=== PATIENT | male | born 1950 | race Caucasian/White ===

== ENCOUNTER 2018-04-22 12:08 | Inpatient (IN) | payer OTHER, MEDICARE ==
[2018-04-22] MEDS ORDERED: NORMAL SALINE 200 ML IV ONE (14:49)
--- NOTE | 2018-04-22 14:54 | ER Document Report ---
ED Medical Screen (RME) - General Chief Complaint: Nausea/Vomiting Stated Complaint: VOMITING Time Seen by Provider: 04/22/18 14:44 Notes: 67-year-old male patient on home peritoneal dialysis, just moved to this area. He has had nausea vomiting diarrhea for the past 5 days. He normally makes very little urine. He was at [facility] dialysis today to become established as a new patient. While he was there he felt weak and they gave him a glucose tablet, then checked his sugar afterwards. He is sent to the emergency room for low blood pressure. He has a saline lock in. I have greeted and performed a rapid initial assessment of this patient. A comprehensive ED assessment and evaluation of the patient, analysis of test results and completion of the medical decision making process will be conducted by additional ED providers. TRAVEL OUTSIDE OF THE [place] IN LAST 30 DAYS: No - Related Data Allergies/Adverse Reactions: No Known Allergies Allergy (Verified 04/22/18 12:11) Past Medical History - Social History Chew tobacco use (# tins/day): No Frequency of alcohol use: None Drug Abuse: None Renal/ Medical History: Reports: Hx Peritoneal Dialysis Physical Exam - Vital signs Vitals: Resp 18 04/22/18 14:45 Course - Vital Signs Vital signs: Temp Pulse Resp BP Pulse Ox 18 04/22/18 14:45
[2018-04-22] MEDS ORDERED: ONDANSETRON HCL INJ/PF 4 MG/2 ML SDV IV ONE (15:03)
[2018-04-22 15:10] LABS: ABSOLUTE BASOPHILS # (AUTO) 0.2 10^3/uL (0.0-0.2); ABSOLUTE EOSINOPHILS # (AUTO) 0.3 10^3/uL (0.0-0.6); ABSOLUTE LYMPHOCYTES (AUTO) 1.1 10^3/uL (0.5-4.7); ABSOLUTE MONOCYTES (AUTO) 1.1 10^3/uL (0.1-1.4); ABSOLUTE NEUT (AUTO) 11.7 10^3/uL (1.7-8.2); BASOPHILS % (AUTO) 1.1 % (0-2); EOSINOPHILS % (AUTO) 1.9 % (0-6); HEMATOCRIT 35.4 % (37.9-51.0); HEMOGLOBIN 11.8 g/dL (13.5-17.0); MEAN CORPUSCULAR HEMOGLOBIN 31.6 pg (27.0-33.4); MEAN CORPUSCULAR HGB CONC 33.4 g/dL (32.0-36.0); MEAN CORPUSCULAR VOLUME 95 fl (80-97); MONOCYTES % (AUTO) 7.5 % (3-13); PLATELET COUNT 396 10^3/uL (150-450); RED BLOOD COUNT 3.73 10^6/uL (4.35-5.55); RED CELL DISTRIBUTION WIDTH 16.8 % (11.5-14.0); SEGMENTED NEUTROPHILS % (AUTO) 81.5 % (42-78); TOTAL CELLS COUNTED % (AUTO) 100 %; WHITE BLOOD COUNT 14.3 10^3/uL (4.0-10.5)
[2018-04-22 15:34] LABS: ALANINE AMINOTRANSFERASE 37 U/L (21-72); ALBUMIN 4.3 g/dL (3.5-5.0); ALKALINE PHOSPHATASE 119 U/L (38-126); ANION GAP 19 (5-19); ASPARTATE AMINO TRANSFERASE 18 U/L (17-59); BILIRUBIN,DIRECT 0.4 mg/dL (0.0-0.4); BILIRUBIN,TOTAL 0.4 mg/dL (0.2-1.3); BLOOD UREA NITROGEN 50 mg/dL (7-20); CALCIUM 7.9 mg/dL (8.4-10.2); CARBON DIOXIDE 28 mmol/L (22-30); CHLORIDE 94 mmol/L (98-107); CREATINE KINASE 101 U/L (55-170); GLUCOSE 101 mg/dL (75-110); POTASSIUM 3.7 mmol/L (3.6-5.0); SODIUM 140.9 mmol/L (137-145); TOTAL PROTEIN 8.1 g/dL (6.3-8.2)
[2018-04-22 15:45] LABS: CREATINE KINASE MB 4.2 ng/mL (<4.55); TROPONIN I 0.076 ng/mL
[2018-04-22] MEDS ORDERED: NORMAL SALINE 500 ML IV ONE (18:02)
--- NOTE | 2018-04-22 18:42 | RADIOLOGY REPORT (SQ) ---
EXAM DESCRIPTION: ABDOMEN 2 VIEWS COMPLETED DATE/TIME: 04/22/2018 6:28 pm REASON FOR STUDY: abdominal pain COMPARISON: None. NUMBER OF VIEWS: Two views. TECHNIQUE: Supine and erect/decubitus radiographic images of the abdomen acquired. LIMITATIONS: None. FINDINGS: FREE AIR: None. No abnormal gas collections. LUNG BASES: Clear. BOWEL GAS PATTERN: Nonobstructive pattern. No dilated loops or air fluid levels. CALCIFICATIONS: No suspicious calcifications. SOFT TISSUES: No gross mass or suggestion of organomegaly. HARDWARE: Dialysis tubing. BONES: No acute fracture. Chronic changes in the spine, pelvis, and hips. No worrisome bone lesions . OTHER: No other significant finding. IMPRESSION: NO RADIOGRAPHIC EVIDENCE FOR ACUTE ABDOMINAL DISEASE. TECHNICAL DOCUMENTATION: JOB ID: [id number] [email or web address]- All Rights Reserved Reading location - IP/workstation name: [email or web address]
[2018-04-22] MEDS ORDERED: NORMAL SALINE 1000 ML 1,000 ML IV ONE (21:54)
[2018-04-22] MEDS ORDERED: VANCOMYCIN HCL INJ 500 MG VIAL PO ONE (21:57)
[2018-04-22] MEDS ORDERED: METRONIDAZOLE 500 MG TABLET PO ONE (22:20)
[2018-04-22] MEDS ORDERED: NORMAL SALINE 1000 ML 1,000 ML IV PRN (23:00)
[2018-04-22] MEDS ORDERED: MAGNESIUM HYDROXIDE SUSP 30 ML UDCUP PO PRN (23:00)
[2018-04-22] MEDS ORDERED: ONDANSETRON 4 MG TAB.RAPDIS PO PRN (23:00)
[2018-04-22] MEDS ORDERED: MAG HYDROX/AL HYDROX/SIMETH SUSP 30 ML UDCUP PO PRN (23:00)
[2018-04-22] MEDS ORDERED: ACETAMINOPHEN 325 MG TABLET PO PRN (23:11)
[2018-04-22] MEDS ORDERED: HYDRALAZINE HCL INJ/PF 20 MG/1 ML SDV IV PRN (23:11)
[2018-04-22] MEDS ORDERED: ALBUTEROL SULFATE 0.083% NEB 2.5 MG/3 ML AMPUL NEB PRN (23:11)
[2018-04-22] MEDS ORDERED: INSULIN REG, HUMAN 100 UNIT/ML 3 ML VIAL (PYX) SUBCUT PRN (23:11)
[2018-04-22] MEDS ORDERED: NALBUPHINE HCL INJ 10 MG/1 ML AMPULE IV PRN (23:11)
[2018-04-22] MEDS ORDERED: LABETALOL HCL INJ 20 MG/4 ML DISP.SYRIN IV PRN (23:11)
[2018-04-22] MEDS ORDERED: GLUCAGON,HUMAN RECOMB 1 MG INJ IM PRN (23:12)
[2018-04-22] MEDS ORDERED: DEXTROSE 40% GEL 15 GM TUBE PO PRN ×2 (23:12)
[2018-04-22] MEDS ORDERED: DEXTROSE 50%-WATER 25 GM/50 ML DISP.SYRIN IV PRN ×2 (23:12)
--- NOTE | 2018-04-22 23:49 | ER Document Report ---
ED General - General Chief Complaint: Nausea/Vomiting Stated Complaint: VOMITING Time Seen by Provider: 04/22/18 14:44 Mode of Arrival: Ambulatory Information source: Patient, Relative TRAVEL OUTSIDE OF THE [place] IN LAST 30 DAYS: No - HPI Patient complains to provider of: Diarrhea Onset: Other - 67-year-old male that presents for evaluation of fatigue persistent diarrhea and abdominal pain over the last week. He is previously be en on peritoneal dialysis for the last 3 years [place] and is attempting to obtain dialysis locally as he is moving to be with his sons. Upon his arrival he went to [facility] to be established as a new patient for his peritoneal dialysis while he was there became lightheaded diaphoretic and felt unwell at which time he was noted to have somewhat diminished blood pressure and low blood sugar was sent to the emergency room. Currently he denies any fevers or chills, does endorse some nausea but says right now he feels much better while sitting still. Nothing is made his symptoms any better or worse. He has been treated previously for peritonitis in the past as recently as 3 weeks prior. - Related Data Allergies/Adverse Reactions: No Known Allergies Allergy (Verified 04/22/18 12:11) Past Medical History - General Information source: Patient, Relative - Social History Smoking Status: Never Smoker Chew tobacco use (# tins/day): No Frequency of alcohol use: None Drug Abuse: None Family History: None Patient has suicidal ideation: No Patient has homicidal ideation: No Renal/ Medical History: Reports: Hx Peritoneal Dialysis Review of Systems - Review of Systems -: Yes All other systems reviewed and negative Physical Exam - Vital signs Vitals: Pulse Resp BP Pulse Ox 91 18 98/43 L 100 04/22/18 14:41 04/22/18 14:41 04/22/18 14:41 04/22/18 14:41 - General General appearance: Appears well In distress: Mild - HEENT Head: Normocephalic Eyes: Normal Conjunctiva: Normal Cornea: Normal Extraocular movements intact: Yes Eyelashes: Normal Pupils: PERRL - Respiratory Respiratory status: No respiratory distress Chest status: Nontender Breath sounds: Normal Chest palpation: Normal - Cardiovascular Rhythm: Regular Heart sounds: Normal auscultation Murmur: No - Abdominal Inspection: Obese Distension: Distended Tenderness: Nontender, Other - PD catheter inserted in the left lower quadrant - Back Back: Normal, Nontender - Extremities General upper extremity: Normal inspection, Nontender, Normal color, Normal ROM, Normal temperature General lower extremity: Normal inspection, Nontender, Normal color, Normal ROM, Normal temperature, Normal weight bearing. No: Aris's sign - Neurological Neuro grossly intact: Yes Cognition: Normal Orientation: AAOx4 [place] Coma Scale Eye Opening: Spontaneous [place] Coma Scale Verbal: Oriented Long Coma Scale Motor: Obeys Commands [place] Coma Scale Total: 15 Speech: Normal Motor strength normal: LUE, RUE, LLE, RLE Sensory: Normal - Psychological Associated symptoms: Normal affect, Normal mood Course - Re-evaluation Re-evalutation: 67-year-old man on peritoneal dialysis who presents for evaluation of diarrhea abdominal pain low blood pressure and cramping. He complains of having set up peritoneal dialysis. Not been able to obtain it thus far. Current plan is for this patient undergo workup including stool samples, x-ray of the abdomen, blood work. He initially has an elevated lactate greater than 2. We will administer fluids will plan for monitoring reassessment will send troponin as well. Patient's potassium is in the normal range despite him being on peritoneal dialysis at this time. We will plan for this patient undergo workup as previous. Following several hours the emergency department the patient had an episode in which he very cold, became very diaphoretic had again dropped his blood pressure. Reassessed the patient at this time, repeated lactate which showed a slight increase administered another 500 mL normal saline. Notably this patient was able to produce a stool sample at which time it was diagnosed as having Clostridium difficile. We will plan for treatment of his C. difficile colitis. We will plan for this patient to undergo admission to the hospital at this time as he feels unwell is difficulty tolerating p.o. and is dehydrated clinically. Have contacted the on-call rib matcher and fitter Dr. Sams who agrees to help coordinate this patient's peritoneal dialysis. On-call hospitalist Dr. Greg Berg has agreed to admit this patient at this time. - Vital Signs Vital signs: Temp Pulse Resp BP Pulse Ox 97.9 F 91 16 131/61 H 94 04/22/18 23:23 04/22/18 14:41 04/22/18 23:01 04/22/18 23:01 04/22/18 23:01 - Laboratory Result Diagrams: 04/22/18 15:00 04/22/18 22:50 Laboratory results interpreted by me: 04/22/18 04/22/18 04/22/18 15:00 15:00 15:13 WBC 14.3 H RBC 3.73 L Hgb 11.8 L Hct 35.4 L RDW 16.8 H Seg Neutrophils % 81.5 H Lymphocytes % 8.0 L Absolute Neutrophils 11.7 H Chloride 94 L BUN 50 H Creatinine 8.31 H Est GFR ( Amer) 8 L Est GFR (Non-Af Amer) 6 L Glucose POC Glucose Lactic Acid 2.2 H Calcium 7.9 L Magnesium 1.5 L 04/22/18 04/22/18 04/22/18 19:25 22:10 22:50 WBC RBC Hgb Hct RDW Seg Neutrophils % Lymphocytes % Absolute Neutrophils Chloride BUN Creatinine Est GFR ( Amer) Est GFR (Non-Af Amer) Glucose 111 H POC Glucose 137 H Lactic Acid 2.8 H Calcium Magnesium Discharge - Discharge Clinical Impression: Clostridium difficile colitis Diarrhea Qualifiers: Diarrhea type: unspecified type Qualified Code(s): R19.7 - Diarrhea, unspecified Condition: Stable Disposition: ADMITTED INPATIENT Admitting Provider: [facility] Unit Admitted: Medical Floor
[2018-04-22] MEDS ORDERED: PANTOPRAZOLE SODIUM 40 MG VIAL IV ONE (23:59)
--- NOTE | 2018-04-23 01:50 | PDOC H&P ---
History of Present Illness Admission Date/PCP: 04/22/2018 No PCP Patient complains of: generalized weakness History of Present Illness: CELIO WAGNER is a 67 year old male who presented to the emergency room with a one-week history of severe diarrhea. He admits that for the last week he has b een having more than 12/day, watery, foul-smelling, grayish-brown diarrhea stools. He further admits the associated symptoms of decreased appetite and decreased oral intake of both liquids and solids due to constant nausea and occasional episodes of vomiting. He denies abdominal pain with the exception of occasional cramps with his diarrhea. He has not identified any ameliorating factors for his diarrhea but notices that the diarrhea is increased if he does eat or drink anything. He denies prior similar episodes. He further admits that he is a peritoneal dialysis patient and was at the [facility] dialysis center today set up his regular dialysis therapy. While he was at the dialysis center he had a sudden episode of feeling weak and lightheaded which he reports they attributed to his blood pressure being low and for that reason they sent him directly to the emergency room via ambulance. In the emergency room he was found to have a stool positive for Clostridium difficile and occasional episodes of what seemed to be vasovagal symptoms of near syncope. Because of these findings patient was admitted to hospital for further evaluation and treatment. Dr. Sams has agreed to see the patient for his dialysis needs. Past Medical History Cardiac Medical History: Reports: Congestive Heart Failure, Hypertension Denies: Atrial Fibrillation, DVT, Myocardial Infarction, Pulmonary Embolism Pulmonary Medical History: Reports: Chronic Obstructive Pulmonary Disease (COPD) Denies: Asthma EENT Medical History: Reports: None Neurological Medical History: Denies: Multiple Sclerosis, Seizures Endocrine Medical History: Reports: Diabetes Mellitus Type 2, Obesity Denies: Diabetes Mellitus Type 1, Hyperthyroidism, Hypothyroidism Renal/ Medical History: Reports: Chronic Kidney Disease, End Stage Renal Disease Denies: Nephrolithiasis Malignancy Medical History: Reports: None GI Medical History: Denies: Cirrhosis, Hepatitis Musculoskeltal Medical History: Denies: Arthritis, Gout Skin Medical History: Denies: Eczema, Psoriasis Psychiatric Medical History: Reports: Tobacco Dependency Denies: Alcohol Dependency, Substance Abuse Traumatic Medical History: Reports: None Hematology: Reports: Anemia Denies: Bleeding Tendencies Infectious Medical History: Reports: Other Infectious History Note: Patient admits he was treated for possible peritonitis with antibiotics 3 or 4 weeks ago at the [facility] in [facility]. Past Surgical History Past Surgical History: Reports: Other - Placement of peritoneal dialysis tubing and access. Social History Information Source: Patient Lives with: Family Smoking Status: Former Smoker Frequency of Alcohol Use: Rare Hx Recreational Drug Use: No Drugs: None Hx Prescription Drug Abuse: No - Advance Directive Resuscitation Status: Full Code Surrogate healthcare decision maker:: Spouse Family History Family History: CAD, DM, Hypertension Parental Family History Reviewed: Yes Children Family History Reviewed: No Sibling(s) Family History Reviewed.: Yes Medication/Allergy Allergies/Adverse Reactions: No Known Allergies Allergy (Verified 04/22/18 12:11) Review of Systems Constitutional: PRESENT: as per HPI, anorexia, weakness. ABSENT: chills, fever(s) Eyes: ABSENT: visual disturbances, other - Ocular pain Ears: ABSENT: hearing changes, other - Ear pain Nose, Mouth, and Throat: ABSENT: mouth pain, sore throat Cardiovascular: ABSENT: chest pain, dyspnea on exertion, edema, orthropnea, palpitations Respiratory: ABSENT: cough, dyspnea Gastrointestinal: PRESENT: as per HPI, diarrhea, nausea, vomiting. ABSENT: abdominal pain, constipation Genitourinary: PRESENT: other - Has peritoneal dialysis for chronic end-stage kidney failure. ABSENT: dysuria, hematuria Musculoskeletal: ABSENT: deformity, joint swelling Integumentary: ABSENT: pruritus, rash Neurological: ABSENT: confusion, convulsions, memory loss, tremor(s) Psychiatric: ABSENT: anxiety, depression Endocrine: ABSENT: cold intolerance, heat intolerance Hematologic/Lymphatic: ABSENT: easy bleeding, easy bruising Physical Exam Vital Signs: Temp Pulse Resp BP Pulse Ox 97 F L 91 18 98/43 L 100 04/22/18 15:36 04/22/18 14:41 04/22/18 14:45 04/22/18 15:00 04/22/18 14:41 Intake & Output 04/20/18 04/21/18 04/22/18 23:59 23:59 23:59 Intake Total 700 Balance 700 Weight 99.9 kg General appearance: PRESENT: no acute distress, cooperative Head exam: PRESENT: atraumatic, normocephalic Eye exam: PRESENT: conjunctiva pink, EOMI. ABSENT: scleral icterus Ear exam: PRESENT: normal external ear exam. ABSENT: bleeding, drainage Mouth exam: PRESENT: dry mucosa, neck supple Neck exam: ABSENT: thyromegaly, tracheal deviation Respiratory exam: PRESENT: decreased breath sounds - Slightly decreased breath sounds throughout all fraser consistent with mild to moderate COPD, symmetrical, unlabored Cardiovascular exam: PRESENT: RRR. ABSENT: clicks, gallop, rubs Pulses: PRESENT: normal radial pulses, normal dorsalis pedis pul Vascular exam: PRESENT: normal capillary refill. ABSENT: pallor GI/Abdominal exam: PRESENT: distended - Mild gaseous distention, hypoactive bowel sounds, soft. ABSENT: rebound, tenderness Rectal exam: PRESENT: deferred Extremities exam: ABSENT: joint swelling, pedal edema Musculoskeletal exam: ABSENT: deformity, dislocation Neurological exam: PRESENT: alert, oriented to person, oriented to place, oriented to time, oriented to situation, CN II-XII grossly intact. ABSENT: motor sensory deficit Psychiatric exam: PRESENT: appropriate affect, normal mood Skin exam: PRESENT: dry, intact, warm. ABSENT: jaundice, rash, urticaria Results Laboratory Results: 04/22/18 15:00 04/22/18 04/22/18 04/22/18 15:00 15:00 15:13 WBC 14.3 H RBC 3.73 L Hgb 11.8 L Hct 35.4 L MCV 95 MCH 31.6 MCHC 33.4 RDW 16.8 H Plt Count 396 Seg Neutrophils % 81.5 H Lymphocytes % 8.0 L Monocytes % 7.5 Eosinophils % 1.9 Basophils % 1.1 Absolute Neutrophils 11.7 H Absolute Lymphocytes 1.1 Absolute Monocytes 1.1 Absolute Eosinophils 0.3 Absolute Basophils 0.2 Sodium 140.9 Potassium 3.7 Chloride 94 L Carbon Dioxide 28 Anion Gap 19 BUN 50 H Creatinine 8.31 H Est GFR ( Amer) 8 L Est GFR (Non-Af Amer) 6 L Glucose 101 Lactic Acid 2.2 H Calcium 7.9 L Magnesium 1.5 L Total Bilirubin 0.4 AST 18 ALT 37 Alkaline Phosphatase 119 Total Protein 8.1 Albumin 4.3 04/22/18 19:25 WBC RBC Hgb Hct MCV MCH MCHC RDW Plt Count Seg Neutrophils % Lymphocytes % Monocytes % Eosinophils % Basophils % Absolute Neutrophils Absolute Lymphocytes Absolute Monocytes Absolute Eosinophils Absolute Basophils Sodium Potassium Chloride Carbon Dioxide Anion Gap BUN Creatinine Est GFR ( Amer) Est GFR (Non-Af Amer) Glucose Lactic Acid 2.8 H Calcium Magnesium Total Bilirubin AST ALT Alkaline Phosphatase Total Protein Albumin 04/22/18 04/22/18 15:00 15:00 Creatine Kinase 101 CK-MB (CK-2) 4.20 Troponin I 0.076 Impressions: Abdomen X-Ray 04/22/18 18:03 IMPRESSION: NO RADIOGRAPHIC EVIDENCE FOR ACUTE ABDOMINAL DISEASE. Assessment & Plan - Diagnosis (1) Clostridium difficile enterocolitis Is this a current diagnosis for this admission?: Yes Plan: Patient is started on oral vancomycin 125 mg every 6 hours. Additionally he will be given supportive care with IV fluids and symptomatic care with antiemetics and pain control utilizing Nubain 10 mg IV every 3 hours as needed for pain. (2) Chronic renal failure, stage 5 Is this a current diagnosis for this admission?: Yes Plan: Patient will be seen in consultation with Dr. Sams for management of his chronic renal failure and assistance in peritoneal dialysis. (3) Generalized weakness Is this a current diagnosis for this admission?: Yes Plan: The patient's weakness will be treated utilizing supportive cares in the form of IV fluids maintenance of appropriate electrolyte balance as well as symptomatic cares for any fever or pain present. (4) Vasovagal near syncope Is this a current diagnosis for this admission?: Yes Plan: The patient's near syncope be treated with repletion of his vascular volume and treatment of his gastrointestinal disorder. Further symptomatic and supportive cares will be rendered as appropriate. - Time Time Spent: 30 to 50 Minutes Critical Time spent with patient: Less than 15 minutes Anticipated discharge: Home - Inpatient Certification Based on my medical assessment, after consideration of the patient's comorbidities, presenting symptoms, or acuity I expect that the services needed warrant INPATIENT care.: Yes I certify that my determination is in accordance with my understanding of Medicare's requirements for reasonable and necessary INPATIENT services [42 CFR 412.3e].: Yes Medical Necessity: Significant Comorbidiites Make Outpatient Treatment Too Risky, Need Close Monitoring Due to Risk of Patient Decompensation, Need For IV Fluids, Need For Continuous Telemetry Monitoring, Risk of Complication if Not Cared For in Hospital
[2018-04-23] MEDS ORDERED: VANCOMYCIN HCL INJ 500 MG VIAL ONE (04:07)
[2018-04-23] MEDS: VANCOMYCIN HCL INJ 500 MG VIAL PO SCH ×4 (04:26→21:54)
[2018-04-23 05:23] LABS: ABSOLUTE BASOPHILS # (AUTO) 0.1 10^3/uL (0.0-0.2); ABSOLUTE EOSINOPHILS # (AUTO) 0.4 10^3/uL (0.0-0.6); ABSOLUTE LYMPHOCYTES (AUTO) 1.4 10^3/uL (0.5-4.7); ABSOLUTE MONOCYTES (AUTO) 1.2 10^3/uL (0.1-1.4); ABSOLUTE NEUT (AUTO) 8.2 10^3/uL (1.7-8.2); BASOPHILS % (AUTO) 1.3 % (0-2); EOSINOPHILS % (AUTO) 3.4 % (0-6); HEMATOCRIT 30.3 % (37.9-51.0); LYMPHOCYTES % (AUTO) 12.1 % (13-45); MEAN CORPUSCULAR HEMOGLOBIN 31.5 pg (27.0-33.4); MEAN CORPUSCULAR HGB CONC 33.1 g/dL (32.0-36.0); MEAN CORPUSCULAR VOLUME 95 fl (80-97); MONOCYTES % (AUTO) 10.7 % (3-13); PLATELET COUNT 320 10^3/uL (150-450); RED BLOOD COUNT 3.17 10^6/uL (4.35-5.55); RED CELL DISTRIBUTION WIDTH 17.1 % (11.5-14.0); SEGMENTED NEUTROPHILS % (AUTO) 72.5 % (42-78); TOTAL CELLS COUNTED % (AUTO) 100 %; WHITE BLOOD COUNT 11.3 10^3/uL (4.0-10.5)
[2018-04-23] MEDS: PANTOPRAZOLE SODIUM 40 MG VIAL IV SCH ×2 (05:36→18:12)
[2018-04-23] MEDS: HEPARIN SOD (PORCINE) 5,000 UNIT/ML 1 ML SYRINGE SUBCUT SCH ×3 (05:36→21:57)
[2018-04-23 05:44] LABS: ANION GAP 17 (5-19); BLOOD UREA NITROGEN 50 mg/dL (7-20); CARBON DIOXIDE 25 mmol/L (22-30); CHLORIDE 99 mmol/L (98-107); CREATINE KINASE 188 U/L (55-170); GLUCOSE 175 mg/dL (75-110); PHOSPHORUS 8.8 mg/dL (2.5-4.5); POTASSIUM 3.7 mmol/L (3.6-5.0); SODIUM 141.2 mmol/L (137-145); TRIGLYCERIDES 270 mg/dL (<150)
[2018-04-23 05:54] LABS: DIRECT LDL 94 mg/dL (<100)
[2018-04-23 05:56] LABS: CREATINE KINASE MB 4.89 ng/mL (<4.55); TROPONIN I 0.098 ng/mL
[2018-04-23 06:01] LABS: FREE T3 3.29 pg/mL (2.77-5.27); FREE T4 (FREE THYROXINE) 1.18 ng/dL (0.78-2.19)
[2018-04-23 06:03] LABS: CALCIUM 6.9 mg/dL (8.4-10.2)
[2018-04-23 06:15] LABS: THYROID STIMULATING HORMONE 3.04 uIU/mL (0.47-4.68)
[2018-04-23] MEDS ORDERED: MAGNESIUM SULFATE/D5W 1 GM/100 ML RTUPB IV ONE (06:30)
[2018-04-23] MEDS: ONDANSETRON HCL INJ/PF 4 MG/2 ML SDV IV PRN ×2 (07:53→21:59)
[2018-04-23] MEDS: GENTAMICIN SULFATE 0.1% CREAM 15 GM TP SCH (09:37)
[2018-04-23] MEDS ORDERED: DOCUSATE SODIUM 100 MG/10 ML UDC PO PRN (09:38)
[2018-04-23] MEDS ORDERED: DOCUSATE SODIUM 100 MG/10 ML UDC PO SCH (10:00)
[2018-04-23 11:52] LABS: CREATINE KINASE MB 4.78 ng/mL (<4.55); TROPONIN I 0.089 ng/mL
[2018-04-23] MEDS: INSULIN REG, HUMAN 100 UNIT/ML 3 ML VIAL (PYX) SUBCUT SCH ×3 (12:12→22:44)
[2018-04-23] MEDS: CALCIUM ACETATE 667 MG CAPSULE PO SCH ×2 (14:09→18:13)
[2018-04-23] MEDS: FOLIC ACID/VITAMIN B COMP W-C CAPSULE PO SCH (16:47)
--- NOTE | 2018-04-23 17:48 | PDOC CONSULTATION ---
Consultation Consult Date: 04/23/18 Attending physician:: IGNACIO GRAY Consult reason:: I was asked to see the patient because of end-stage renal disease admitted with dehydration, diarrhea and hypotension. History of Present Illness Admission Date/PCP: 04/23/18 00:02 History of Present Illness: CELIO WAGNER is a 67 year old male with history of end-stage renal disease on peritoneal dialysis, diabetes mellitus type 2, hypertension, hyperlipidemia, COPD, CHF and coronary artery disease who presented to the emergency room yesterday. Patient relates that he just moved here in [place] from [place] last March 17, 2019. Yesterday he was at [place] [facility] [facility] trying to establish his care in the dialysis unit when he felt weak and lightheaded and was found to have low blood pressure. He was then sent to the emergency room at the time. Patient admits that he has not been feeling good because he has been having diarrhea for the last 4-5 days. Yesterday he had at least 12 episodes of loose stools. He describes his stool without any blood nor mucus. He admits some nausea and vomiting yesterday with some abdominal soreness for the last 4-5 days. He has some dry cough but denies any shortness of breath, chest pains, no leg swelling. Initial evaluation in the emergency room showed that he was C. difficile positive and is currently being treated with oral vancomycin. He was also noted to be dehydrated so he was given initially a liter of normal saline bolus followed by another bag at 125 mL an hour. Today he said he feels a little bit better. Patient has been on peritoneal dialysis for the past 3 years. His glass cutting machine feeder was Dr. Carrero from [place]. Even though he moved here in [place] on March 17 he was only trying to establish with [facility] and with us yesterday. He said he was using the supplies that he brought in from [place]. He said because of his end-stage renal disease is a combination of diabetes and hypertension. He usually does his peritoneal dialysis. The cycler machine at night with a fill volume of 3 L each exchange for a total of 3 exchanges during the night with last fill using Extraneal solution during the day. So far he de nies any problems with his exchanges at home nor did he notice any cloudy peritoneal dialysis fluid effluent. He does not know what his dry weight is because his usually does his peritoneal dialysis who is currently not available in the room. On March 30, [address] back to [place] he started not feeling good and so he stopped at [facility]. He was admitted there from March 30 and discharged on April 12, 2018. Discharge diagnosis include acute hypoxemic respiratory failure, hypervolemia, end-stage renal disease and diabetic foot ulcers to name a few. He told me that he was diagnosed with peritonitis and was treated with IV antibiotics for 3-4 days during that hospitalization but the discharge summary did not really say that. So I am not sure about this diagnosis. We did do a fluid cell count and a fluid culture yesterday when he was at [place] [facility]. The PD fluid cell count was so far negative for any evidence of peritonitis and the PD fluid culture is still pending at the time of the state dictation. During that hospitalization there was concern about osteomyelitis which was ruled out by doing an MRI. There was also a note of elevated troponin and medical management was done. Patient was discharged and patient went back here in [place] instead of proceeding to [place] as he planned. Past Medical History Cardiac Medical History: Reports: CHF-Diastolic, Coronary Artery Disease, Hyperlipidemia, Hypertension-primary, Myocardial Infarction - Twice with stents placed, Pulmonary Hypertension Pulmonary Medical History: Reports: Chronic Obstructive Pulmonary Disease (COPD), Respiratory Failure Endocrine Medical History: Reports: Diabetes Mellitus Type 2, Obesity Complications of Diabetes: Reports: Autonomic Neuropathy, Diabetic Foot Ulcer, Nephropathy, Retinopathy Renal/ Medical History: Reports: Benign Prostatic Hyperplasia, End Stage Renal Disease, Hematuria, Hypocalcemia, Hyperphosphatemia, Renal Osteodystropy, Other - Urinary retention GI Medical History: Reports: Diverticulitis Psychiatric Medical History: Reports: Depression, Tobacco Dependency Hematology Medical History: Reports Anemia of Chronic Kidney Disease Past Surgical History Past Surgical History: Reports: Dialysis Access Surgery PD, Other - Small bowel resection for diverticulitis; adhesion lysis April 2017 Social History Information Source: Patient, [facility] Records Lives with: Spouse/Significant other Smoking Status: Former Smoker - Creatinine 1993 Frequency of Alcohol Use: None Hx Recreational Drug Use: No Drugs: None Hx Prescription Drug Abuse: No - Advance Directive Resuscitation Status: Full Code Family History Family History: CAD - Father, CVA - Mother Parental Family History Reviewed: Yes Children Family History Reviewed: Yes Sibling(s) Family History Reviewed.: Yes Medication/Allergy Home Medications: Aspirin [Ecotrin 81 mg EC Tablet] 81 mg PO DAILY 04/23/18 Atorvastatin Calcium [Lipitor 80 mg Tablet] 80 mg PO QHS 04/23/18 Carvedilol [Coreg 12.5 mg Tablet] 12.5 mg PO Q12 04/23/18 Docusate Sodium [Colace 100 mg Capsule] 200 mg PO BID 04/23/18 Escitalopram Oxalate [Lexapro 10 mg Tablet] 10 mg PO DAILY 04/23/18 Finasteride [Proscar 5 mg Tablet] 5 mg PO DAILY 04/23/18 Folic Acid/Vitamin B Comp W-C [Renal Multivitamin Tablet] 1 tab PO DAILY 04/23/18 Insulin Aspart [Novolog Insulin 100 Unit/1 ml 10 ml] 0 unit SUBCUT .SLD SCALE 04/23/18 Insulin Glargine,Hum.rec.anlog [Lantus Insulin 100 Unit/1 ml 10 ml] 80 unit SUBCUT QHS 04/23/18 Ipratropium/Albuterol Sulfate [Combivent Respimat 4 gm Mdi] 1 puff IH DAILY 04/23/18 Isosorbide Mononitrate [Imdur 30 mg Tablet.er] 30 mg PO DAILY 04/23/18 Lactulose [Cephulac 20 gm/30 ml Syrup UD Cup] 20 gm PO DAILYP PRN 04/23/18 Omeprazole 40 mg PO DAILY 04/23/18 Terazosin HCl [Hytrin] 2 mg PO QHS 04/23/18 Allergies/Adverse Reactions: No Known Allergies Allergy (Verified 04/22/18 12:11) Review of Systems All systems: reviewed and no additional remarkable complaints except as stated Review of Systems: Constitutional: ABSENT: chills, fatigue, fever(s), headache(s), weight gain, weight loss admits weakness Eyes: ABSENT: visual disturbances Ears: ABSENT: hearing changes Cardiovascular: ABSENT: chest pain, dyspnea on exertion, edema, orthropnea, palpitations Respiratory: ABSENT: cough, dyspnea, hemoptysis Gastrointestinal: ABSENT: Constipation, hematemesis, hematochezia; admits diarrhea, nausea, vomiting and abdominal soreness Genitourinary: ABSENT: dysuria, hematuria; admits decreased urine output Musculoskeletal: ABSENT: joint swelling Integumentary: ABSENT: rash, wounds Neurological: ABSENT: abnormal gait, abnormal speech, confusion, dizziness, focal weakness, numbness, syncope Psychiatric: ABSENT: anxiety, depression Endocrine: ABSENT: cold intolerance, heat intolerance, polydipsia, polyuria Hematologic/Lymphatic: ABSENT: easy bleeding, easy bruising, lymphadenopathy Physical Exam Vital Signs: Temp Pulse Resp BP Pulse Ox 98.5 F 96 18 119/34 L 92 04/23/18 16:35 04/23/18 16:35 04/23/18 16:35 04/23/18 16:35 04/23/18 16:35 Intake & Output 04/22/18 04/23/18 04/24/18 06:59 06:59 06:59 Intake Total 4500 5050 Output Total 2800 4900 Balance 1700 150 Weight 97.8 kg 98.8 kg Exam: General appearance: No acute distress, cooperative, well-developed, well- nourished Head exam: PRESENT: atraumatic, normocephalic Eye exam: PRESENT: Conjunctiva slightly pale, EOMI, PERRLA. ABSENT: conjunctival injection, scleral icterus Mouth exam: PRESENT: moist, neck supple, tongue midline Neck exam: PRESENT: full ROM. ABSENT: carotid bruit, JVD, lymphadenopathy, thyromegaly Respiratory exam: PRESENT: clear to auscultation bilaterally. ABSENT: rales, rhonchi, stridor, wheezes Cardiovascular exam: PRESENT: RRR, +S1, +S2. ABSENT: systolic murmur Pulses: PRESENT: normal radial pulses, normal dorsalis pedis pulses GI/Abdominal exam: PRESENT: normal bowel sounds, soft. PD catheter in place with good exit site ABSENT: guarding, mass, tenderness Rectal exam: Deferred Extremities exam: PRESENT: full ROM. ABSENT: calf tenderness, pedal edema Musculoskeletal: PRESENT: full ROM. ABSENT: deformity Neurological exam: PRESENT: alert, Awake, Oriented to person, Oriented to place, Oriented to time, reflexes normal, CN II-XII grossly intact. ABSENT: motor sensory deficit Psychiatric exam: PRESENT: appropriate affect, normal mood. ABSENT: homicidal ideation, suicidal ideation Skin exam: PRESENT: intact, dry, warm. ABSENT: rash Results Laboratory Results: 04/23/18 05:02 04/23/18 05:02 04/22/18 04/22/18 04/23/18 19:25 22:50 00:48 WBC RBC Hgb Hct MCV MCH MCHC RDW Plt Count Seg Neutrophils % Lymphocytes % Monocytes % Eosinophils % Basophils % Absolute Neutrophils Absolute Lymphocytes Absolute Monocytes Absolute Eosinophils Absolute Basophils Sodium Potassium Chloride Carbon Dioxide Anion Gap BUN Creatinine Est GFR ( Amer) Est GFR (Non-Af Amer) Glucose 111 H Lactic Acid 2.8 H 2.2 H Calcium Phosphorus Magnesium Triglycerides Cholesterol LDL Cholesterol Direct VLDL Cholesterol HDL Cholesterol TSH Free T4 Free T3 pg/mL 04/23/18 04/23/18 04/23/18 05:02 05:02 05:02 WBC 11.3 H RBC 3.17 L Hgb 10.0 L Hct 30.3 L MCV 95 MCH 31.5 MCHC 33.1 RDW 17.1 H Plt Count 320 Seg Neutrophils % 72.5 Lymphocytes % 12.1 L Monocytes % 10.7 Eosinophils % 3.4 Basophils % 1.3 Absolute Neutrophils 8.2 Absolute Lymphocytes 1.4 Absolute Monocytes 1.2 Absolute Eosinophils 0.4 Absolute Basophils 0.1 Sodium 141.2 Potassium 3.7 Chloride 99 Carbon Dioxide 25 Anion Gap 17 BUN 50 H Creatinine 8.33 H Est GFR ( Amer) 8 L Est GFR (Non-Af Amer) 6 L Glucose 175 H Lactic Acid 2.0 Calcium 6.9 L* Phosphorus 8.8 H Magnesium 1.5 L Triglycerides 270 H Cholesterol 177.80 LDL Cholesterol Direct 94 VLDL Cholesterol 54.0 H HDL Cholesterol 29 L TSH Free T4 Free T3 pg/mL 04/23/18 05:02 WBC RBC Hgb Hct MCV MCH MCHC RDW Plt Count Seg Neutrophils % Lymphocytes % Monocytes % Eosinophils % Basophils % Absolute Neutrophils Absolute Lymphocytes Absolute Monocytes Absolute Eosinophils Absolute Basophils Sodium Potassium Chloride Carbon Dioxide Anion Gap BUN Creatinine Est GFR ( Amer) Est GFR (Non-Af Amer) Glucose Lactic Acid Calcium Phosphorus Magnesium Triglycerides Cholesterol LDL Cholesterol Direct VLDL Cholesterol HDL Cholesterol TSH 3.04 Free T4 1.18 Free T3 pg/mL 3.29 04/22/18 04/22/18 04/22/18 15:00 15:00 22:50 Creatine Kinase 101 CK-MB (CK-2) 4.20 Troponin I 0.076 0.083 04/22/18 04/22/18 04/23/18 22:50 22:50 05:02 Creatine Kinase 120 188 H CK-MB (CK-2) 4.46 Troponin I Cancelled 01/29/19 01/29/19 01/29/19 05:02 10:51 10:51 Creatine Kinase 187 H CK-MB (CK-2) 4.89 H 4.78 H Troponin I 0.098 0.089 Impressions: Abdomen X-Ray 04/22/18 18:03 IMPRESSION: NO RADIOGRAPHIC EVIDENCE FOR ACUTE ABDOMINAL DISEASE. Assessment & Plan - Diagnosis (1) End stage renal disease on dialysis Is this a current diagnosis for this admission?: Yes Plan: Patient has been on peritoneal dialysis for 3 years. We will continue per itoneal dialysis while here in the hospital. Since we do not do a cycler machine here in the hospital we will convert the patient to continuous ambulatory peritoneal dialysis. We also do not have an Extraneal dialysis solution so I will increase his number of exchanges to make up for it. We will do 5 exchanges, fill volume of 2.5 L each exchange, we will use 2.5% dianeal solution unless the blood pressure has systolic blood pressure of 110 or less then we will use 1.5% solution. We will do exchanges every 5 hours. We will do daily exit site care and daily weights. Discussed the CAPD prescription with his nurse today. We will monitor the patient every day and adjust treatment accordingly if needed. At this time initial workup for peritonitis is negative so no antibiotics is necessary. (2) Clostridium difficile colitis Is this a current diagnosis for this admission?: Yes Plan: On oral vancomycin. (3) Dehydration Is this a current diagnosis for this admission?: Yes Plan: He was given 1 L of IV saline bolus in the emergency room yesterday and just finish a liter of IV fluids which I think for now is appropriate. Encourage oral fluid intake. I do not recommend any further IV fluids since the patient does not make much urine anymore. (4) Hyperphosphatemia Is this a current diagnosis for this admission?: Yes Plan: Uncontrolled. Start the patient on calcium acetate 667 mg 3 capsules with meals. (5) Hypocalcemia Is this a current diagnosis for this admission?: Yes Plan: This is due to hyperphosphatemia. Phosphorus binders will be initiated. (6) Hypomagnesemia Is this a current diagnosis for this admission?: Yes Plan: Replace as necessary. (7) Diabetes mellitus type 2 in obese Is this a current diagnosis for this admission?: Yes (8) Hyperlipidemia Is this a current diagnosis for this admission?: Yes (9) Generalized weakness Is this a current diagnosis for this admission?: Yes - Notes Notes: Thank you very much for this consultation. I will follow the patient with you. - Time Time Spent: Greater than 70 Minutes
--- NOTE | 2018-04-23 18:23 | PDOC PROGRESS REPORT ---
Subjective Progress Note for:: 04/23/18 Subjective:: No acute events overnight. Patient has not had any recurrence of his diarrhea. C. difficile was positive. Patient has responded well to oral vancomycin and metronidazole. Not having any shortness of breath, chest pain, abdominal pain, fever, chills, diarrhea or any urinary symptoms. She has PD dialysis and Dr. Sams nephrology has is on board. Reason For Visit: ACUTE CLOSTRIDIUM DIFFICILE ENTERCOLITIS Physical Exam Vital Signs: Temp Pulse Resp BP Pulse Ox 98.5 F 96 18 119/34 L 92 04/23/18 16:35 04/23/18 16:35 04/23/18 16:35 04/23/18 16:35 04/23/18 16:35 Intake & Output 04/22/18 04/23/18 04/24/18 06:59 06:59 06:59 Intake Total 4500 5050 Output Total 2800 4900 Balance 1700 150 Weight 97.8 kg 98.8 kg General appearance: PRESENT: obese Head exam: PRESENT: atraumatic, normocephalic Respiratory exam: PRESENT: clear to auscultation yair. ABSENT: rales, rhonchi, wheezes Cardiovascular exam: PRESENT: RRR. ABSENT: diastolic murmur, rubs, systolic murmur GI/Abdominal exam: PRESENT: normal bowel sounds, soft. ABSENT: distended, guarding, mass, organolmegaly, rebound, tenderness Neurological exam: PRESENT: alert, awake, oriented to person, oriented to place, oriented to time, oriented to situation, CN II-XII grossly intact. ABSENT: motor sensory deficit Results Laboratory Results: 04/23/18 05:02 04/23/18 05:02 04/22/18 04/22/18 04/23/18 19:25 22:50 00:48 WBC RBC Hgb Hct MCV MCH MCHC RDW Plt Count Seg Neutrophils % Lymphocytes % Monocytes % Eosinophils % Basophils % Absolute Neutrophils Absolute Lymphocytes Absolute Monocytes Absolute Eosinophils Absolute Basophils Sodium Potassium Chloride Carbon Dioxide Anion Gap BUN Creatinine Est GFR ( Amer) Est GFR (Non-Af Amer) Glucose 111 H Lactic Acid 2.8 H 2.2 H Calcium Phosphorus Magnesium Triglycerides Cholesterol LDL Cholesterol Direct VLDL Cholesterol HDL Cholesterol TSH Free T4 Free T3 pg/mL 04/23/18 04/23/18 04/23/18 05:02 05:02 05:02 WBC 11.3 H RBC 3.17 L Hgb 10.0 L Hct 30.3 L MCV 95 MCH 31.5 MCHC 33.1 RDW 17.1 H Plt Count 320 Seg Neutrophils % 72.5 Lymphocytes % 12.1 L Monocytes % 10.7 Eosinophils % 3.4 Basophils % 1.3 Absolute Neutrophils 8.2 Absolute Lymphocytes 1.4 Absolute Monocytes 1.2 Absolute Eosinophils 0.4 Absolute Basophils 0.1 Sodium 141.2 Potassium 3.7 Chloride 99 Carbon Dioxide 25 Anion Gap 17 BUN 50 H Creatinine 8.33 H Est GFR ( Amer) 8 L Est GFR (Non-Af Amer) 6 L Glucose 175 H Lactic Acid 2.0 Calcium 6.9 L* Phosphorus 8.8 H Magnesium 1.5 L Triglycerides 270 H Cholesterol 177.80 LDL Cholesterol Direct 94 VLDL Cholesterol 54.0 H HDL Cholesterol 29 L TSH Free T4 Free T3 pg/mL 04/23/18 05:02 WBC RBC Hgb Hct MCV MCH MCHC RDW Plt Count Seg Neutrophils % Lymphocytes % Monocytes % Eosinophils % Basophils % Absolute Neutrophils Absolute Lymphocytes Absolute Monocytes Absolute Eosinophils Absolute Basophils Sodium Potassium Chloride Carbon Dioxide Anion Gap BUN Creatinine Est GFR ( Amer) Est GFR (Non-Af Amer) Glucose Lactic Acid Calcium Phosphorus Magnesium Triglycerides Cholesterol LDL Cholesterol Direct VLDL Cholesterol HDL Cholesterol TSH 3.04 Free T4 1.18 Free T3 pg/mL 3.29 04/22/18 04/22/18 04/22/18 15:00 15:00 22:50 Creatine Kinase 101 CK-MB (CK-2) 4.20 Troponin I 0.076 0.083 04/22/18 04/22/18 04/23/18 22:50 22:50 05:02 Creatine Kinase 120 188 H CK-MB (CK-2) 4.46 Troponin I Cancelled 04/23/18 04/23/18 04/23/18 05:02 10:51 10:51 Creatine Kinase 187 H CK-MB (CK-2) 4.89 H 4.78 H Troponin I 0.098 0.089 Impressions: Abdomen X-Ray 04/22/18 18:03 IMPRESSION: NO RADIOGRAPHIC EVIDENCE FOR ACUTE ABDOMINAL DISEASE. Assessment & Plan - Diagnosis (1) Clostridium difficile enterocolitis Is this a current diagnosis for this admission?: Yes Plan: Continue vancomycin and metronidazole. Continue supportive measures. Monitor volume status. Monitor electrolytes and replace as needed. (2) Chronic renal failure, stage 5 Is this a current diagnosis for this admission?: Yes Plan: On peritoneal dialysis. Dr. Sams yarn salvager on board. Monitor volume status and electrolytes. Restart home meds. (3) Generalized weakness Is this a current diagnosis for this admission?: Yes Plan: Due to underlying C. difficile colitis and electrolyte and volume depletion. Continue supportive measures. Monitor vitals and electrolytes replace as needed. (4) Vasovagal near syncope Is this a current diagnosis for this admission?: Yes Plan: Likely due to dehydration caused by C. difficile colitis. Monitor volume status.
[2018-04-24] MEDS: VANCOMYCIN HCL INJ 500 MG VIAL PO SCH ×4 (02:24→21:24)
[2018-04-24 05:05] LABS: ABSOLUTE BASOPHILS # (AUTO) 0.1 10^3/uL (0.0-0.2); ABSOLUTE EOSINOPHILS # (AUTO) 0.4 10^3/uL (0.0-0.6); ABSOLUTE LYMPHOCYTES (AUTO) 1.3 10^3/uL (0.5-4.7); ABSOLUTE MONOCYTES (AUTO) 0.9 10^3/uL (0.1-1.4); ABSOLUTE NEUT (AUTO) 5.8 10^3/uL (1.7-8.2); BASOPHILS % (AUTO) 1.3 % (0-2); HEMATOCRIT 28.1 % (37.9-51.0); HEMOGLOBIN 9.4 g/dL (13.5-17.0); LYMPHOCYTES % (AUTO) 15.1 % (13-45); MEAN CORPUSCULAR HEMOGLOBIN 31.7 pg (27.0-33.4); MEAN CORPUSCULAR HGB CONC 33.3 g/dL (32.0-36.0); MEAN CORPUSCULAR VOLUME 95 fl (80-97); PLATELET COUNT 276 10^3/uL (150-450); RED BLOOD COUNT 2.96 10^6/uL (4.35-5.55); RED CELL DISTRIBUTION WIDTH 16.8 % (11.5-14.0); SEGMENTED NEUTROPHILS % (AUTO) 67.6 % (42-78); TOTAL CELLS COUNTED % (AUTO) 100 %; WHITE BLOOD COUNT 8.6 10^3/uL (4.0-10.5)
[2018-04-24 05:33] LABS: ALANINE AMINOTRANSFERASE 25 U/L (21-72); ALBUMIN 3.3 g/dL (3.5-5.0); ALKALINE PHOSPHATASE 94 U/L (38-126); ANION GAP 16 (5-19); ASPARTATE AMINO TRANSFERASE 16 U/L (17-59); BILIRUBIN,DIRECT 0.4 mg/dL (0.0-0.4); BILIRUBIN,TOTAL 0.4 mg/dL (0.2-1.3); BLOOD UREA NITROGEN 42 mg/dL (7-20); CALCIUM 7.7 mg/dL (8.4-10.2); CARBON DIOXIDE 26 mmol/L (22-30); CHLORIDE 99 mmol/L (98-107); GLUCOSE 255 mg/dL (75-110); PHOSPHORUS 7.6 mg/dL (2.5-4.5); POTASSIUM 3.5 mmol/L (3.6-5.0); SODIUM 140.6 mmol/L (137-145); TOTAL PROTEIN 6.3 g/dL (6.3-8.2)
[2018-04-24] MEDS: PANTOPRAZOLE SODIUM 40 MG VIAL IV SCH ×2 (06:03→19:03)
[2018-04-24] MEDS: HEPARIN SOD (PORCINE) 5,000 UNIT/ML 1 ML SYRINGE SUBCUT SCH ×3 (06:03→21:25)
[2018-04-24] MEDS: INSULIN REG, HUMAN 100 UNIT/ML 3 ML VIAL (PYX) SUBCUT SCH ×4 (08:08→22:41)
[2018-04-24] MEDS: CALCIUM ACETATE 667 MG CAPSULE PO SCH ×3 (08:09→17:08)
--- NOTE | 2018-04-24 10:18 | PDOC PROGRESS REPORT ---
Subjective Progress Note for:: 04/24/18 Subjective:: No acute events overnight. Patient is stating he is feeling much better. He has not had any recurrence of his diarrhea since yesterday. He is denying any fever, chills, nausea, chest pain, vomiting, diarrhea, constipation or any urinary symptoms. Systolic blood pressure 119-134, afebrile, saturating 92% on 1 L nasal cannula. WBC 8.6 from 11.3, hemoglobin 9.4 from 11.8, potassium 3.5, creatinine 7.76 from 8.31 Prima stool culture negative, 1 set of blood cultures blood culture from 03/22/2019 + for gram positive cocci in clusters pending sensitivity. Reason For Visit: ACUTE CLOSTRIDIUM DIFFICILE ENTERCOLITIS Physical Exam Vital Signs: Temp Pulse Resp BP Pulse Ox 98.9 F 92 16 134/45 H 92 04/24/18 07:51 04/24/18 07:51 04/24/18 07:51 04/24/18 07:51 04/24/18 07:51 Intake & Output 04/23/18 04/24/18 04/25/18 06:59 06:59 06:59 Intake Total 4500 56539 2500 Output Total 2800 20977 2550 Balance 1700 150 -50 Weight 97.8 kg 100 kg 97.8 kg General appearance: PRESENT: no acute distress, obese, well-developed, well- nourished Head exam: PRESENT: atraumatic, normocephalic Respiratory exam: PRESENT: clear to auscultation yair. ABSENT: rales, rhonchi, wheezes Cardiovascular exam: PRESENT: RRR. ABSENT: diastolic murmur, rubs, systolic murmur GI/Abdominal exam: PRESENT: normal bowel sounds, soft. ABSENT: distended, guarding, mass, organolmegaly, rebound, tenderness Extremities exam: PRESENT: full ROM. ABSENT: calf tenderness, clubbing, pedal edema Neurological exam: PRESENT: alert, awake, oriented to person, oriented to place, oriented to time, oriented to situation, CN II-XII grossly intact. ABSENT: motor sensory deficit Results Laboratory Results: 04/24/18 04:42 04/24/18 04:42 04/24/18 04/24/18 04/24/18 04:42 04:42 04:42 WBC 8.6 RBC 2.96 L Hgb 9.4 L Hct 28.1 L MCV 95 MCH 31.7 MCHC 33.3 RDW 16.8 H Plt Count 276 Seg Neutrophils % 67.6 Lymphocytes % 15.1 Monocytes % 11.0 Eosinophils % 5.0 Basophils % 1.3 Absolute Neutrophils 5.8 Absolute Lymphocytes 1.3 Absolute Monocytes 0.9 Absolute Eosinophils 0.4 Absolute Basophils 0.1 Sodium 140.6 Potassium 3.5 L Chloride 99 Carbon Dioxide 26 Anion Gap 16 BUN 42 H Creatinine 7.76 H Est GFR ( Amer) 8 L Est GFR (Non-Af Amer) 7 L Glucose 255 H Calcium 7.7 L Phosphorus 7.6 H Magnesium 1.7 Total Bilirubin 0.4 AST 16 L ALT 25 Alkaline Phosphatase 94 Total Protein 6.3 Albumin 3.3 L PTH Intact 242.3 H 04/22/18 04/22/18 04/22/18 15:00 15:00 22:50 Creatine Kinase 101 CK-MB (CK-2) 4.20 Troponin I 0.076 0.083 04/22/18 04/22/18 04/23/18 22:50 22:50 05:02 Creatine Kinase 120 188 H CK-MB (CK-2) 4.46 Troponin I Cancelled 04/23/18 04/23/18 04/23/18 05:02 10:51 10:51 Creatine Kinase 187 H CK-MB (CK-2) 4.89 H 4.78 H Troponin I 0.098 0.089 Impressions: Abdomen X-Ray 04/22/18 18:03 IMPRESSION: NO RADIOGRAPHIC EVIDENCE FOR ACUTE ABDOMINAL DISEASE. Assessment & Plan - Diagnosis (1) Clostridium difficile enterocolitis Is this a current diagnosis for this admission?: Yes Plan: Diarrhea has resolved. Likely caused by recent IV antibiotics at [facility] at [facility]. Day 2 of oral vancomycin. Monitor electrolytes and replace as needed. As per patient history on March 30, 2018 he was admitted at [facility] at [facility] where he stayed 3-4 days and had received IV antibiotics for peritonitis. As per cutting machine operator helper notes a fluid cell count and fluid culture were done at [facility] on 04/21/2018. Fluid cell count was negative for any evidence of peritonitis and cultures are still pending. (2) Chronic renal failure, stage 5 Is this a current diagnosis for this admission?: Yes Plan: On peritoneal dialysis. Dr. Sams cutting machine operator helper on board. Monitor volume status and electrolytes. Restart home meds. (3) Generalized weakness Is this a current diagnosis for this admission?: Yes Plan: Improved. Due to underlying C. difficile colitis and electrolyte and volume depletion. Continue supportive measures. Monitor vitals and electrolytes replace as needed. PT consulted. (4) Vasovagal near syncope Is this a current diagnosis for this admission?: Yes Plan: No recurrence. Likely due to dehydration caused by C. difficile colitis. Monitor volume status. (5) Gram-positive bacteremia Is this a current diagnosis for this admission?: Yes Plan: Prelim results from 04/22/2018 1 out of 2 sets positive for gram cocci in clusters. Ending sensitivity. Blood culture. Follow blood cultures.
[2018-04-24] MEDS: ONDANSETRON HCL INJ/PF 4 MG/2 ML SDV IV PRN (12:03)
[2018-04-24] MEDS: GENTAMICIN SULFATE 0.1% CREAM 15 GM TP SCH (12:25)
[2018-04-24] MEDS: FINASTERIDE 5 MG TABLET PO SCH (13:11)
[2018-04-24] MEDS: ESCITALOPRAM OXALATE 10 MG TABLET PO SCH (13:11)
[2018-04-24] MEDS: FOLIC ACID/VITAMIN B COMP W-C CAPSULE PO SCH (17:08)
--- NOTE | 2018-04-24 20:59 | PDOC PROGRESS REPORT ---
Subjective Progress Note for:: 04/24/18 Subjective:: Patient is doing fine and feeling better. He has not had any diarrhea since admission. He is eating good does not have any new other complaints. His peritoneal dialysis is going along well without any issues. His ultrafiltration is adequate. Reason For Visit: ACUTE CLOSTRIDIUM DIFFICILE ENTERCOLITIS Physical Exam Vital Signs: Temp Pulse Resp BP Pulse Ox 98.3 F 81 16 150/33 H 99 04/24/18 16:25 04/24/18 17:00 04/24/18 16:25 04/24/18 17:00 04/24/18 16:25 Intake & Output 04/23/18 04/24/18 04/25/18 06:59 06:59 06:59 Intake Total 4500 91708 7973 Output Total 2800 58068 7250 Balance 1700 150 723 Weight 97.8 kg 100 kg 96.6 kg Exam: General appearance: PRESENT: no acute distress, cooperative, well-developed, well-nourished Head exam: PRESENT: atraumatic, normocephalic Eye exam: PRESENT: conjunctiva pink, PERRLA. ABSENT: scleral icterus Neck exam: ABSENT: JVD Respiratory exam: PRESENT: Normal breath sounds. ABSENT: crackles, rales, rhonchi, unlabored, wheezes Cardiovascular exam: PRESENT: Regular rate rhythm -+S1, +S2. ABSENT: diastolic murmur, systolic murmur GI/Abdominal exam: PRESENT: normal bowel sounds, soft. ABSENT: guarding, mass, tenderness Extremities exam: ABSENT: No edema Neurological exam: PRESENT: alert, awake, oriented to person, place and time. Skin exam: PRESENT: dry, warm, Results Laboratory Results: 04/24/18 04:42 04/24/18 04:42 04/24/18 04/24/18 04/24/18 04:42 04:42 04:42 WBC 8.6 RBC 2.96 L Hgb 9.4 L Hct 28.1 L MCV 95 MCH 31.7 MCHC 33.3 RDW 16.8 H Plt Count 276 Seg Neutrophils % 67.6 Lymphocytes % 15.1 Monocytes % 11.0 Eosinophils % 5.0 Basophils % 1.3 Absolute Neutrophils 5.8 Absolute Lymphocytes 1.3 Absolute Monocytes 0.9 Absolute Eosinophils 0.4 Absolute Basophils 0.1 Sodium 140.6 Potassium 3.5 L Chloride 99 Carbon Dioxide 26 Anion Gap 16 BUN 42 H Creatinine 7.76 H Est GFR ( Amer) 8 L Est GFR (Non-Af Amer) 7 L Glucose 255 H Calcium 7.7 L Phosphorus 7.6 H Magnesium 1.7 Total Bilirubin 0.4 AST 16 L ALT 25 Alkaline Phosphatase 94 Total Protein 6.3 Albumin 3.3 L PTH Intact 242.3 H 04/22/18 04/22/18 04/22/18 15:00 15:00 22:50 Creatine Kinase 101 CK-MB (CK-2) 4.20 Troponin I 0.076 0.083 04/22/18 04/22/18 04/23/18 22:50 22:50 05:02 Creatine Kinase 120 188 H CK-MB (CK-2) 4.46 Troponin I Cancelled 04/23/18 04/23/18 04/23/18 05:02 10:51 10:51 Creatine Kinase 187 H CK-MB (CK-2) 4.89 H 4.78 H Troponin I 0.098 0.089 Impressions: Abdomen X-Ray 04/22/18 18:03 IMPRESSION: NO RADIOGRAPHIC EVIDENCE FOR ACUTE ABDOMINAL DISEASE. Assessment & Plan - Diagnosis (1) End stage renal disease on dialysis Is this a current diagnosis for this admission?: Yes Plan: Continue current CAPD regimen doing 5 exchanges every 5 hours with a fill volume of 2.5 L using either 1.5 or 2.5% solution depending on blood pressures as ordered. (2) Clostridium difficile colitis Is this a current diagnosis for this admission?: Yes Plan: On oral vancomycin. Currently improved. (3) Dehydration Is this a current diagnosis for this admission?: Yes Plan: Resolving. (4) Hyperphosphatemia Is this a current diagnosis for this admission?: Yes Plan: On calcium acetate. (5) Hypocalcemia Is this a current diagnosis for this admission?: Yes Plan: Slowly improving. (6) Secondary hyperparathyroidism Is this a current diagnosis for this admission?: Yes Plan: Start calcitriol. (7) Anemia in chronic kidney disease Is this a current diagnosis for this admission?: Yes Plan: We will give Procrit at 20,000 units subcutaneously today. (8) Hypokalemia Is this a current diagnosis for this admission?: Yes Plan: Start potassium 20 mEq daily. (9) Gram-positive bacteremia Is this a current diagnosis for this admission?: Yes (10) Diabetes mellitus type 2 in obese Is this a current diagnosis for this admission?: Yes (11) Hyperlipidemia Is this a current diagnosis for this admission?: Yes (12) Generalized weakness Is this a current diagnosis for this admission?: Yes (13) Hypomagnesemia Is this a current diagnosis for this admission?: Yes Plan: Resolved. - Notes Notes: From nephrology standpoint I think patient is stable enough to go home. Patient will be followed up at [facility] and [facility]. - Time Time with patient: 15-25 minutes
[2018-04-24] MEDS ORDERED: CALCITRIOL 0.25 MCG CAPSULE PO SCH (21:00)
[2018-04-24] MEDS: POTASSIUM CHLORIDE 10 MEQ CAPSULE.ER PO SCH (21:23)
[2018-04-24] MEDS ORDERED: DOXAZOSIN MESYLATE 2 MG TABLET PO SCH (22:00)
[2018-04-24] MEDS ORDERED: EPOETIN ALFA INJ 20000 UNIT/1 ML VIAL (RENAL) SUBCUT ONE (22:00)
[2018-04-24] MEDS ORDERED: (PENDING PHARMACY ID) (Terazosin Hcl [Hytrin] 2 MG) PO SCH (22:00)
[2018-04-24] MEDS ORDERED: ATORVASTATIN CALCIUM 80 MG TABLET PO SCH (22:00)
[2018-04-25] MEDS: VANCOMYCIN HCL INJ 500 MG VIAL PO SCH ×2 (04:00→10:02)
[2018-04-25] MEDS: HEPARIN SOD (PORCINE) 5,000 UNIT/ML 1 ML SYRINGE SUBCUT SCH ×2 (05:14→13:50)
[2018-04-25] MEDS: PANTOPRAZOLE SODIUM 40 MG VIAL IV SCH (05:15)
[2018-04-25 06:05] LABS: ABSOLUTE BASOPHILS # (AUTO) 0.1 10^3/uL (0.0-0.2); ABSOLUTE EOSINOPHILS # (AUTO) 0.4 10^3/uL (0.0-0.6); ABSOLUTE LYMPHOCYTES (AUTO) 1.4 10^3/uL (0.5-4.7); ABSOLUTE NEUT (AUTO) 5.7 10^3/uL (1.7-8.2); BASOPHILS % (AUTO) 1.4 % (0-2); EOSINOPHILS % (AUTO) 4.6 % (0-6); HEMATOCRIT 28.4 % (37.9-51.0); HEMOGLOBIN 9.4 g/dL (13.5-17.0); LYMPHOCYTES % (AUTO) 16.2 % (13-45); MEAN CORPUSCULAR HEMOGLOBIN 31.5 pg (27.0-33.4); MEAN CORPUSCULAR VOLUME 96 fl (80-97); MONOCYTES % (AUTO) 11.7 % (3-13); PLATELET COUNT 276 10^3/uL (150-450); RED BLOOD COUNT 2.98 10^6/uL (4.35-5.55); RED CELL DISTRIBUTION WIDTH 16.5 % (11.5-14.0); SEGMENTED NEUTROPHILS % (AUTO) 66.1 % (42-78); TOTAL CELLS COUNTED % (AUTO) 100 %; WHITE BLOOD COUNT 8.7 10^3/uL (4.0-10.5)
[2018-04-25 06:24] LABS: ALANINE AMINOTRANSFERASE 24 U/L (21-72); ALBUMIN 3.5 g/dL (3.5-5.0); ALKALINE PHOSPHATASE 98 U/L (38-126); ANION GAP 13 (5-19); ASPARTATE AMINO TRANSFERASE 17 U/L (17-59); BILIRUBIN,DIRECT 0.4 mg/dL (0.0-0.4); BILIRUBIN,TOTAL 0.5 mg/dL (0.2-1.3); BLOOD UREA NITROGEN 38 mg/dL (7-20); CALCIUM 8.2 mg/dL (8.4-10.2); CARBON DIOXIDE 28 mmol/L (22-30); CHLORIDE 99 mmol/L (98-107); GLUCOSE 241 mg/dL (75-110); PHOSPHORUS 4.9 mg/dL (2.5-4.5); POTASSIUM 3.4 mmol/L (3.6-5.0); TOTAL PROTEIN 6.8 g/dL (6.3-8.2)
[2018-04-25] MEDS: INSULIN REG, HUMAN 100 UNIT/ML 3 ML VIAL (PYX) SUBCUT SCH ×2 (08:21→12:15)
[2018-04-25] MEDS: CALCIUM ACETATE 667 MG CAPSULE PO SCH ×2 (08:22→12:14)
[2018-04-25] MEDS ORDERED: POTASSIUM CHLORIDE 20 MEQ/15 ML UDCUP PO ONE (09:22)
[2018-04-25] MEDS ORDERED: ASPIRIN 81 MG TABLET, ENT COATED PO SCH (10:00)
[2018-04-25] MEDS ORDERED: CARVEDILOL 12.5 MG TABLET PO SCH (10:00)
[2018-04-25] MEDS ORDERED: ISOSORBIDE MONONITRATE 30 MG TAB.ER.24H PO SCH (10:00)
[2018-04-25] MEDS: POTASSIUM CHLORIDE 10 MEQ CAPSULE.ER PO SCH (10:03)
[2018-04-25] MEDS: FINASTERIDE 5 MG TABLET PO SCH (10:04)
[2018-04-25] MEDS: ESCITALOPRAM OXALATE 10 MG TABLET PO SCH (10:05)
[2018-04-25] MEDS: GENTAMICIN SULFATE 0.1% CREAM 15 GM TP SCH (10:07)
[2018-04-25 15:05] VITALS: BP 134/42
--- NOTE | 2018-04-25 17:05 | Progress Note ---
Provider Note Provider Note: ID Consult Note Asked to review patient's chart and spoke with Dr Oliva briefly via telephone. Pt not seen or examined. Mr. Giles is a 67 year old man with obesity, ESRD on PD, DM, CHF, HTN, COPD, HLD who was admitted on 04/22/18 with diarrhea for the past 4-5 days with at least 12 episodes of loose stool the day prior to presentation and abdominal pain. He did not have a fever. He has no ICD or PPM or prosthetic valves. His exam was notable for slightly decreased breath sounds on lung exam diffusely, hypoactive bowel sounds and mild abdominal distention, no systolic murmur, no inflammatory changes at PD catheter exit site. He was diagnosed with diarrhea due to Clostridium difficile infection after PCR of stool was positive for C diff, and he had improvement with PO vancomycin 125 mg q6h. He had blood cultures drawn on admission that grew Staphylococcus epidermidis in one set and showed no growth from the other set. He had blood cultures repeated that have no growth x 24h preliminarily reported. He has improved to the point that he is now felt appropriate for discharge. Impression/Recommendations The isolation of Staphylococcus epidermidis from one set of blood cultures in this patient on admission appears to be most consistent with pseudobacteremia or blood culture contamination. Pt is not reported to have any central lines or endovascular/cardiac devices or prosthetic heart valves, and he has not had repeated isolation of the same coagulase negative Staph species. This does not appear to be a true bacteremia. No antibiotic therapy indicated for this. For Clostridium difficile diarrhea, PO vancomycin 125 mg q6h should be continued for 10-14 days, duration based on whether there has been good response at 7 days. Nakul Saha MD [facility] Infectious Diseases pager [phone]
--- NOTE | 2018-04-26 18:22 | PDOC DISCHARGE SUMMARY ---
General - Admit/Disc Date/PCP Admission Date/Primary Care Provider: 04/23/18 00:02 Discharge Date: 04/25/18 - Discharge Diagnosis (1) Clostridium difficile enterocolitis Is this a current diagnosis for this admission?: Yes (2) Chronic renal failure, stage 5 Is this a current diagnosis for this admission?: Yes (3) Generalized weakness Is this a current diagnosis for this admission?: Yes (4) Vasovagal near syncope Is this a current diagnosis for this admission?: Yes (5) Gram-positive bacteremia Is this a current diagnosis for this admission?: Yes - Additional Information Resuscitation Status: Full Code Discharge Diet: As Tolerated Discharge Activity: Activity As Tolerated Prescriptions: Vancomycin HCl [Vancocin Inj 500 mg Vial] 125 mg PO Q6A 7 Days #42 vial Home Medications: Aspirin [Ecotrin 81 mg EC Tablet] 81 mg PO DAILY 04/23/18 Atorvastatin Calcium [Lipitor 80 mg Tablet] 80 mg PO QHS 04/23/18 Carvedilol [Coreg 12.5 mg Tablet] 12.5 mg PO Q12 04/23/18 Docusate Sodium [Colace 100 mg Capsule] 200 mg PO BID 04/23/18 Escitalopram Oxalate [Lexapro 10 mg Tablet] 10 mg PO DAILY 04/23/18 Finasteride [Proscar 5 mg Tablet] 5 mg PO DAILY 04/23/18 Folic Acid/Vitamin B Comp W-C [Renal Multivitamin Tablet] 1 tab PO DAILY 04/23/18 Insulin Aspart [Novolog Insulin (Aspart) 100 unit/mL] 0 unit SUBCUT .SLD SCALE 04/23/18 Insulin Glargine,Hum.rec.anlog [Lantus Insulin 100 Unit/1 ml 10 ml] 80 unit SUBCUT QHS 04/23/18 Ipratropium/Albuterol Sulfate [Combivent Respimat 4 gm Mdi] 1 puff IH DAILY 04/23/18 Isosorbide Mononitrate [Imdur 30 mg Tablet.er] 30 mg PO DAILY 04/23/18 Lactulose [Cephulac Syrup 20 gm/30 ml Udcup] 20 gm PO DAILYP PRN 04/23/18 Omeprazole 40 mg PO DAILY 04/23/18 Terazosin HCl [Hytrin] 2 mg PO QHS 04/23/18 Vancomycin HCl [Vancocin Inj 500 mg Vial] 125 mg PO Q6A 7 Days #42 vial 04/25/18 History of Present Illness History of Present Illness: CELIO WAGNER is a 67 year old male who presented to the emergency room with a one-week history of severe diarrhea. He admits that for the last week he has been having more than 12/day, watery, foul-smelling, grayish-brown diarrhea stools. He further admits the associated symptoms of decreased appetite and decreased oral intake of both liquids and solids due to constant nausea and occasional episodes of vomiting. He denies abdominal pain with the exception of occasional cramps with his diarrhea. He has not identified any ameliorating factors for his diarrhea but notices that the diarrhea is increased if he does eat or drink anything. He denies prior similar episodes. He further admits that he is a peritoneal dialysis patient and was at the [facility] dialysis center today set up his regular dialysis therapy. While he was at the dialysis center he had a sudden episode of feeling weak and lightheaded which he reports they attributed to his blood pressure being low and for that reason they sent him directly to the emergency room via ambulance. In the emergency room he was found to have a stool positive for Clostridium difficile and occasional episodes of what seemed to be vasovagal symptoms of near syncope. Because of these findings patient was admitted to hospital for further evaluation and treatment. Dr. Sams has agreed to see the patient for his dialysis needs. Hospital Course Hospital Course: (1) Clostridium difficile enterocolitis Diarrhea has resolved. Likely caused by recent IV antibiotics at [facility] at [facility]. Day 2 of oral vancomycin. Monitor electrolytes and replace as needed. As per patient history on March 30, 2018 he was admitted at [facility] at [facility] where he stayed 3-4 days and had received IV antibiotics for peritonitis. As per interactive media specialist notes a fluid cell count and fluid culture were done at [facility] on 04/21/2018. Fluid cell count was negative for any evidence of peritonitis and cultures are still pending. pt was discharged on oral vancomyacin to complete a total of 10 days and follow up with pcp (2) Chronic renal failure, stage [address] Sams interactive media specialist on board. Monitor volume status and electrolytes. Restart home meds. (3) Generalized weakness Improved. Due to underlying C. difficile colitis and electrolyte and volume depletion. Continue supportive measures. Monitor vitals and electrolytes replace as needed. PT consulted. (4) Vasovagal near syncope No recurrence. Likely due to dehydration caused by C. difficile colitis. Monitor volume status. (5) Gram-positive bacteremia Prelim results from 04/22/2018 1 out of 2 sets positive for gram cocci in clusters. likely contamination. Repeat blood cutlures remained negative. Physical Exam Vital Signs: Temp Pulse Resp BP Pulse Ox 97.7 F 76 16 134/42 H 92 04/25/18 15:03 04/25/18 15:03 04/25/18 15:03 04/25/18 15:03 04/25/18 15:03 Intake & Output 04/25/18 04/26/18 04/27/18 06:59 06:59 06:59 Intake Total 61966 2500 Output Total 34128 2300 Balance 2360 200 Weight 97.8 kg 99.2 kg General appearance: PRESENT: no acute distress, well-developed, well-nourished Head exam: PRESENT: atraumatic, normocephalic Eye exam: PRESENT: conjunctiva pink, EOMI, PERRLA. ABSENT: scleral icterus Ear exam: PRESENT: normal external ear exam Mouth exam: PRESENT: moist, tongue midline Neck exam: ABSENT: carotid bruit, JVD, lymphadenopathy, thyromegaly Respiratory exam: PRESENT: clear to auscultation yair. ABSENT: rales, rhonchi, wheezes Cardiovascular exam: PRESENT: RRR. ABSENT: diastolic murmur, rubs, systolic murmur Pulses: PRESENT: normal dorsalis pedis pul Vascular exam: PRESENT: normal capillary refill GI/Abdominal exam: PRESENT: normal bowel sounds, soft. ABSENT: distended, guarding, mass, organolmegaly, rebound, tenderness Rectal exam: PRESENT: deferred Extremities exam: PRESENT: full ROM. ABSENT: calf tenderness, clubbing, pedal edema Neurological exam: PRESENT: alert, awake, oriented to person, oriented to place, oriented to time, oriented to situation, CN II-XII grossly intact. ABSENT: motor sensory deficit Psychiatric exam: PRESENT: appropriate affect, normal mood. ABSENT: homicidal ideation, suicidal ideation Skin exam: PRESENT: dry, intact, warm. ABSENT: cyanosis, rash Results Laboratory Results: 04/25/18 05:33 04/25/18 05:33 04/22/18 20:30 Stool - Stool - Final 04/22/18 20:30 Stool - Stool Stool Culture - Final Vancomycin Resis. Enterococci 04/22/18 04/22/18 04/22/18 15:00 15:00 22:50 Creatine Kinase 101 CK-MB (CK-2) 4.20 Troponin I 0.076 0.083 04/22/18 04/22/18 04/23/18 22:50 22:50 05:02 Creatine Kinase 120 188 H CK-MB (CK-2) 4.46 Troponin I Cancelled 04/23/18 04/23/18 04/23/18 05:02 10:51 10:51 Creatine Kinase 187 H CK-MB (CK-2) 4.89 H 4.78 H Troponin I 0.098 0.089 Impressions: Abdomen X-Ray 04/22/18 18:03 IMPRESSION: NO RADIOGRAPHIC EVIDENCE FOR ACUTE ABDOMINAL DISEASE. Qualifiers - * PATIENT BEING DISCHARGED WITH ANY OF THE FOLLOWING DIAGNOSIS: No
== END 2018-04-25 15:56 | disposition home or self-care (01) | DRG 371 ==
LOC: ER 12:08 → EH 04-23 00:02 → 3W 04-23 02:18
PROVIDERS: ADMIT Emergency Medicine; ATTEND Emergency Medicine
DX: A04.72 Enterocolitis due to Clostridium difficile, not specified as recurrent (principal); N18.6 End stage renal disease; I13.2 Hypertensive heart and chronic kidney disease with heart failure and with stage 5 chronic kidney disease, or end stage renal disease; N25.81 Secondary hyperparathyroidism of renal origin; R78.81 Bacteremia; I50.32 Chronic diastolic (congestive) heart failure; E11.22 Type 2 diabetes mellitus with diabetic chronic kidney disease; Z99.2 Dependence on renal dialysis; J44.9 Chronic obstructive pulmonary disease, unspecified; E66.9 Obesity, unspecified; R55 Syncope and collapse; E86.0 Dehydration; E83.39 Other disorders of phosphorus metabolism; E83.51 Hypocalcemia; D63.1 Anemia in chronic kidney disease; E78.5 Hyperlipidemia, unspecified; E83.42 Hypomagnesemia; E87.6 Hypokalemia; I25.10 Atherosclerotic heart disease of native coronary artery without angina pectoris; E11.43 Type 2 diabetes mellitus with diabetic autonomic (poly)neuropathy; E11.319 Type 2 diabetes mellitus with unspecified diabetic retinopathy without macular edema; E11.21 Type 2 diabetes mellitus with diabetic nephropathy; I25.2 Old myocardial infarction; Z79.4 Long term (current) use of insulin; Z79.82 Long term (current) use of aspirin; Z79.899 Other long term (current) drug therapy; Z87.891 Personal history of nicotine dependence; Z82.49 Family history of ischemic heart disease and other diseases of the circulatory system; Z83.3 Family history of diabetes mellitus; Z95.5 Presence of coronary angioplasty implant and graft
CPT/HCPCS: 36415; 74019; 80048; 80053; 80061; 82550; 82553; 82947; 82962; 83036; 83605; 83735; 83970; 84100; 84439; 84443; 84481; 84484; 85025; 87040; 87045; 87077; 87186; 87205; 87493; 90945; 90947; 96361; 96374; 99285; J1644; J1815; J2300; J2405; J3370; J3475; J3490; J7030; J7040; Q4081; S0119; S0164

== ENCOUNTER 2018-06-07 18:54 | Inpatient (IN) | payer OTHER, MEDICARE ==
--- NOTE | 2018-06-07 19:49 | ER Document Report ---
ED Medical Screen (RME) - General Chief Complaint: Urinary Retention Stated Complaint: UTI Time Seen by Provider: 06/07/18 19:47 Primary Care Provider: Eleno GANDHI MD [Primary Care Provider] - Follow up as needed TRAVEL OUTSIDE OF THE [place] IN LAST 30 DAYS: No - HPI Notes: 06/07/18 19:48 Patient is a 67-year-old male that presents to the emergency department for chief complaint of urinary retention. Patient reports frequent urinary tract infections. He has had decreased urinary output over the last few days and has not had any void since yesterday afternoon. He does use peritoneal dialysis and states his normal urine output is low. He denies associated fever, nausea, and vomiting ROS: GENERAL: Denies fever of chills CV: Denies chest pain PHYSICAL EXAMINATION: GENERAL: Well-appearing, well-nourished and in no acute distress. HEAD: Atraumatic, normocephalic. EYES: Pupils equal round extraocular movements intact, conjunctiva are normal. ENT: Nares patent NECK: Normal range of motion LUNGS: No respiratory distress Musculoskeletal: Normal range of motion NEUROLOGICAL: Normal speech, normal gait. PSYCH: Normal mood, normal affect. MDM: Patient seen and examined for rapid initial assessment. Vital signs reviewed. A comprehensive ED assessment and evaluation of the patient, analysis of test results and completion of the medical decision making process will be conducted by additional ED providers. - Related Data Allergies/Adverse Reactions: No Known Allergies Allergy (Verified 04/22/18 12:11) Past Medical History - Past Medical History Cardiac Medical History: Reports: Hx Congestive Heart Failure, Hx Coronary Avani ry Disease, Hx Heart Attack - Twice with stents placed, Hx Hypercholesterolemia, Hx Hypertension Denies: Hx Atrial Fibrillation, Hx DVT, Hx Pulmonary Embolism Pulmonary Medical History: Reports: Hx COPD, Hx Respiratory Failure Denies: Hx Asthma Neurological Medical History: Denies: Hx Seizures Endocrine Medical History: Reports: Hx Diabetes Mellitus Type 2. Denies: Hx Diabetes Mellitus Type 1, Hx Hyperthyroidism, Hx Hypothyroidism Renal/ Medical History: Reports: Hx Benign Prostatic Hyperplasia, Hx End Stage Renal Disease, Hx Peritoneal Dialysis GI Medical History: Reports: Hx Diverticulitis. Denies: Hx Cirrhosis, Hx Hepatitis Musculoskeltal Medical History: Denies Hx Arthritis, Denies Hx Gout Skin Medical History: Denies Hx Eczema, Denies Hx Psoriasis Psychiatric Medical History: Reports: Hx Depression Infectious Medical History: Denies: Hx Hepatitis Past Surgical History: Reports: Other - Small bowel resection for diverticulitis ; adhesion lysis April 2017 Physical Exam - Vital signs Vitals: Temp Pulse Resp BP Pulse Ox 97.3 F 86 18 134/49 H 100 06/07/18 19:33 06/07/18 19:33 06/07/18 19:33 06/07/18 19:33 06/07/18 19:33 Course - Vital Signs Vital signs: Temp Pulse Resp BP Pulse Ox 97.3 F 86 18 134/49 H 100 06/07/18 19:33 06/07/18 19:33 06/07/18 19:33 06/07/18 19:33 06/07/18 19:33 Doctor's Discharge - Discharge Referrals: Eleno GANDHI MD [Primary Care Provider] - Follow up as needed
[2018-06-07 21:33] LABS: ABSOLUTE BASOPHILS # (AUTO) 0.2 10^3/uL (0.0-0.2); ABSOLUTE EOSINOPHILS # (AUTO) 0.1 10^3/uL (0.0-0.6); ABSOLUTE LYMPHOCYTES (AUTO) 1.3 10^3/uL (0.5-4.7); ABSOLUTE MONOCYTES (AUTO) 1.3 10^3/uL (0.1-1.4); ABSOLUTE NEUT (AUTO) 12.1 10^3/uL (1.7-8.2); EOSINOPHILS % (AUTO) 0.9 % (0-6); HEMATOCRIT 35.8 % (37.9-51.0); HEMOGLOBIN 12.1 g/dL (13.5-17.0); MEAN CORPUSCULAR HEMOGLOBIN 32.6 pg (27.0-33.4); MEAN CORPUSCULAR HGB CONC 33.9 g/dL (32.0-36.0); MEAN CORPUSCULAR VOLUME 96 fl (80-97); MONOCYTES % (AUTO) 8.5 % (3-13); PLATELET COUNT 435 10^3/uL (150-450); RED BLOOD COUNT 3.72 10^6/uL (4.35-5.55); RED CELL DISTRIBUTION WIDTH 18.3 % (11.5-14.0); SEGMENTED NEUTROPHILS % (AUTO) 80.6 % (42-78); TOTAL CELLS COUNTED % (AUTO) 100 %
[2018-06-07 21:39] LABS: APPEARANCE,URINE TURBID; BILIRUBIN,URINE NEGATIVE (NEGATIVE); COLOR,URINE YELLOW; GLUCOSE, URINE >=500 mg/dL (NEGATIVE); KETONES,URINE NEGATIVE (NEGATIVE); LEUKOCYTE ESTERASE,URINE MODERATE (NEGATIVE); NITRITE,URINE NEGATIVE (NEGATIVE); PROTEIN,URINE 100 mg/dL (NEGATIVE); URINE SPECIFIC GRAVITY 1.022; UROBILINOGEN,URINE NEGATIVE mg/dL (<2.0)
[2018-06-07] MEDS ORDERED: ACETAMINOPHEN 325 MG TABLET PO ONE (21:49)
[2018-06-07] MEDS ORDERED: HYDROCODONE/ACETAMINOPHEN 5-325 MG TABLET PO ONE (21:51)
[2018-06-07 21:55] LABS: ALANINE AMINOTRANSFERASE 7 U/L (21-72); ALBUMIN 4.3 g/dL (3.5-5.0); ALKALINE PHOSPHATASE 222 U/L (38-126); ASPARTATE AMINO TRANSFERASE 13 U/L (17-59); BILIRUBIN,DIRECT 0.5 mg/dL (0.0-0.4); BILIRUBIN,TOTAL 0.5 mg/dL (0.2-1.3); BLOOD UREA NITROGEN 43 mg/dL (7-20); CALCIUM 8.1 mg/dL (8.4-10.2); GLUCOSE 198 mg/dL (75-110)
[2018-06-07 22:02] LABS: CARBON DIOXIDE 23 mmol/L (22-30); CHLORIDE 92 mmol/L (98-107); SODIUM 137.4 mmol/L (137-145)
[2018-06-07 22:05] LABS: ANION GAP 22 (5-19)
[2018-06-07 22:09] LABS: POTASSIUM 2.9 mmol/L (3.6-5.0)
[2018-06-07] MEDS ORDERED: POTASSIUM CHLORIDE 20 MEQ/15 ML UDCUP PO ONE (23:40)
[2018-06-08] MEDS ORDERED: CEFTRIAXONE 1 GM/D5W RTU 1 GM/50 ML RTUPB IV ONE (00:47)
--- NOTE | 2018-06-08 01:40 | ER Document Report ---
Entered by JOE GILL SCRIBE 06/07/182022 Acting as scribe for:SPIKE GARAY DO ED GI/ - General Chief Complaint: Urinary Retention Stated Complaint: UTI Time Seen by Provider: 06/07/18 19:47 Information source: Patient Notes: 67-year-old male who presents to the emergency department today with complaints of urinary retention. Patient states he also believes he has a urinary tract infection. Patient states he has had urinary retention once in the past. Patient mentions that he is on peritoneal dialysis but still urinates x3-4 times on a normal day. Patient states he has not urinated at all in 24 hours. Patient states he is not concerned with the fluid he is seeing from his peritoneal dialysis. Patient states he is having penile discomfort. Patient denies any abdominal pain. TRAVEL OUTSIDE OF THE [place] IN LAST 30 DAYS: No - Related Data Allergies/Adverse Reactions: No Known Allergies Allergy (Verified 04/22/18 12:11) Past Medical History - General Information source: Patient - Social History Smoking Status: Unknown if Ever Smoked Cigarette use (# per day): No Frequency of alcohol use: None Drug Abuse: None Lives with: Family Family History: CAD, DM, Hypertension Patient has suicidal ideation: No Patient has homicidal ideation: No - Past Medical History Cardiac Medical History: Reports: Hx Congestive Heart Failure, Hx Coronary Artery Disease, Hx Heart Attack - Twice with stents placed, Hx Hypercholesterolemia, Hx Hypertension Pulmonary Medical History: Reports: Hx COPD, Hx Respiratory Failure Endocrine Medical History: Reports: Hx Diabetes Mellitus Type 2 Renal/ Medical History: Reports: Hx Benign Prostatic Hyperplasia, Hx End Stage Renal Disease, Hx Peritoneal Dialysis GI Medical History: Reports: Hx Diverticulitis Psychiatric Medical History: Reports: Hx Depression Past Surgical History: Reports: Other - Small bowel resection for diverticulitis; adhesion lysis April 2017 Review of Systems - Review of Systems Constitutional: No symptoms reported EENT: No symptoms reported Cardiovascular: No symptoms reported Respiratory: No symptoms reported Gastrointestinal: No symptoms reported Genitourinary: See HPI, Other - urinary retention Male Genitourinary: See HPI, Other - penile pain Musculoskeletal: No symptoms reported Skin: No symptoms reported Hematologic/Lymphatic: No symptoms reported Neurological/Psychological: No symptoms reported -: Yes All other systems reviewed and negative Physical Exam - Vital signs Vitals: Temp Pulse Resp BP Pulse Ox 97.3 F 86 18 134/49 H 100 06/07/18 19:33 06/07/18 19:33 06/07/18 19:33 06/07/18 19:33 06/07/18 19:33 - Notes Notes: PHYSICAL EXAM GENERAL: Alert, interacts well. Appears uncomfortable. HEAD: Normocephalic, atraumatic. EYES: Pupils equal, round, and reactive to light. Extraocular movements intact. ENT: Oral mucosa moist, tongue midline. NECK: Full range of motion. Supple. Trachea midline. LUNGS: No respiratory distress. ABDOMEN: Soft, non-tender. Non-distended. Bowel sounds present in all 4 quadrants. No guarding, rigidity, or rebound. EXTREMITIES: Moves all 4 extremities spontaneously. NEUROLOGICAL: Alert and oriented x3. Normal speech. PSYCH: Normal affect, normal mood. SKIN: Warm, dry, normal turgor. Peritoneal dialysis catheter in good position. Course - Re-evaluation Re-evalutation: 06/07/18 23:53 Called the rotary furnace operator who paged Dr. Sams 06/08/18 00:32 Called the rotary furnace operator to have Dr. Sams paged again 06/08/18 00:47 CBC shows leukocytosis of 15.0, anemia with hemoglobin 12.1, CMP shows low potassium at 2.9, chronic renal failure with a BUN of 43 and a creatinine 8.7, there is a slightly elevated anion gap at 22, glucose is elevated, urinalysis shows greater than 500 glucose, small blood, moderate leukocyte esterase, greater than 182 WBCs. This was obtained after Moraes catheter was placed, 200 mL's was received out. Specimen of diastole will be sent to the lab for culture just in case. I do not suspect peritonitis at this time as he is having only mild suprapubic tenderness to palpation with his urinary retention which has improved since the Moraes catheter was placed. He is having no abdominal pain otherwise, no fevers and has not noticed any cloudy dialysate. I did discuss the patient with Dr. Arroyo who is agreeable to accepting this patient so long as we have nephrology consulting. Dr. 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 She is currently giving peritoneal dialysis orders to the nurse right now. Patient's potassium is being repleted by mouth at this time. - Vital Signs Vital signs: Temp Pulse Resp BP Pulse Ox 97.8 F 79 18 127/59 H 97 06/08/18 02:06 06/08/18 02:06 06/08/18 02:06 06/08/18 02:06 06/08/18 02:06 - Laboratory Result Diagrams: 06/07/18 21:19 06/07/18 21:19 Laboratory results interpreted by me: 06/07/18 06/07/18 06/07/18 21:19 21:19 21:19 WBC 15.0 H RBC 3.72 L Hgb 12.1 L Hct 35.8 L RDW 18.3 H Seg Neutrophils % 80.6 H Lymphocytes % 9.0 L Absolute Neutrophils 12.1 H Potassium 2.9 L* Chloride 92 L Anion Gap 22 H BUN 43 H Creatinine 8.70 H Est GFR ( Amer) 7 L Est GFR (Non-Af Amer) 6 L Glucose 198 H Calcium 8.1 L Direct Bilirubin 0.5 H AST 13 L ALT 7 L Alkaline Phosphatase 222 H Urine Protein 100 H Urine Glucose (UA) >=500 H Urine Blood SMALL H Ur Leukocyte Esterase MODERATE H Discharge - Discharge Clinical Impression: Chronic renal failure, stage 5, End stage renal disease on dialysis UTI (urinary tract infection) Qualifiers: Urinary tract infection type: acute cystitis Hematuria presence: with hematuria Qualified Code(s): N30.01 - Acute cystitis with hematuria Condition: Fair Disposition: ADMITTED INPATIENT [facility] Admitted: Telemetry I personally performed the services described in the documentation, reviewed and edited the documentation which was dictated to the scribe in my presence, and it accurately records my words and actions.
[2018-06-08] MEDS ORDERED: DEXTROSE 50%-WATER 25 GM/50 ML DISP.SYRIN IV PRN ×2 (02:08)
[2018-06-08] MEDS ORDERED: DEXTROSE 40% GEL 15 GM TUBE PO PRN ×2 (02:08)
[2018-06-08] MEDS ORDERED: MAG HYDROX/AL HYDROX/SIMETH SUSP 30 ML UDCUP PO PRN (02:08)
[2018-06-08] MEDS ORDERED: GLUCAGON,HUMAN RECOMB 1 MG INJ IM PRN (02:08)
[2018-06-08] MEDS ORDERED: NORMAL SALINE 1000 ML 1,000 ML IV ONE (02:11)
[2018-06-08 02:46] LABS: VENOUS BLOOD BASE EXCESS -0.8 mmol/L; VENOUS BLOOD HCO3 24.7 mmol/L (20-32); VENOUS BLOOD PCO2 44.3 mmHg (35-63); VENOUS BLOOD PH 7.37 (7.30-7.42)
[2018-06-08] MEDS: HEPARIN SOD (PORCINE) 5,000 UNIT/ML 1 ML SYRINGE SUBCUT SCH ×3 (05:34→22:33)
[2018-06-08] MEDS: PANTOPRAZOLE SODIUM 40 MG TABLET.DR PO SCH (05:34)
--- NOTE | 2018-06-08 06:06 | PDOC H&P ---
History of Present Illness Admission Date/PCP: 06/08/18 01:46 K Emma GANDHI MD Patient complains of: Abdominal and pelvic pain History of Present Illness: CELIO WAGNER is a 67 year old male with a past medical history of end-stage renal failure on peritoneal dialysis, congestive heart failure, hypertension, COPD, insulin-dependent diabetes, and BPH. He presents with 48 hours of abdominal and pelvic pain crampy in nature associated with oliguria prompting evaluation emergency room where he is found to have leukocytosis and pyuria. Nephrology consulted for PD fluid management. He is started on empiric antibiotics and referred to the hospitalist for admission. Patient denies recent antibiotic use. Past Medical History Cardiac Medical History: Reports: Congestive Heart Failure, Coronary Artery Disease, Myocardial Infarction - Twice with stents placed, Hyperlipidema, Hypertension Denies: Atrial Fibrillation, DVT, Pulmonary Embolism Pulmonary Medical History: Reports: Chronic Obstructive Pulmonary Disease (COPD), Respiratory Failure Denies: Asthma Neurological Medical History: Denies: Seizures Endocrine Medical History: Reports: Diabetes Mellitus Type 2 Denies: Diabetes Mellitus Type 1, Hyperthyroidism, Hypothyroidism Renal/ Medical History: Reports: End Stage Renal Disease GI Medical History: Reports: Diverticulitis Denies: Cirrhosis, Hepatitis Musculoskeltal Medical History: Denies: Arthritis, Gout Skin Medical History: Denies: Eczema, Psoriasis Psychiatric Medical History: Reports: Depression Hematology: Reports: Anemia Denies: Bleeding Tendencies Past Surgical History Past Surgical History: Reports: Other - Small bowel resection for diverticulitis; adhesion lysis April 2017 Social History Information Source: Patient, [facility] Records Lives with: Family Smoking Status: Unknown if Ever Smoked Frequency of Alcohol Use: Rare Hx Recreational Drug Use: No Drugs: None Hx Prescription Drug Abuse: No - Advance Directive Resuscitation Status: Full Code Family History Family History: CAD, DM, Hypertension Parental Family History Reviewed: Yes Children Family History Reviewed: Yes Sibling(s) Family History Reviewed.: Yes Medication/Allergy Home Medications: Aspirin [Ecotrin 81 mg EC Tablet] 81 mg PO DAILY 04/23/18 Atorvastatin Calcium [Lipitor 80 mg Tablet] 80 mg PO QHS 04/23/18 Carvedilol [Coreg 12.5 mg Tablet] 12.5 mg PO Q12 04/23/18 Docusate Sodium [Colace 100 mg Capsule] 200 mg PO BID 04/23/18 Escitalopram Oxalate [Lexapro 10 mg Tablet] 10 mg PO DAILY 04/23/18 Finasteride [Proscar 5 mg Tablet] 5 mg PO DAILY 04/23/18 Folic Acid/Vitamin B Comp W-C [Renal Multivitamin Tablet] 1 tab PO DAILY 04/23/18 Insulin Aspart [Novolog Insulin (Aspart) 100 unit/mL] 0 unit SUBCUT .SLD SCALE 04/23/18 Insulin Glargine,Hum.rec.anlog [Lantus Insulin 100 Unit/1 ml 10 ml] 80 unit SUBCUT QHS 04/23/18 Ipratropium/Albuterol Sulfate [Combivent Respimat 4 gm Mdi] 1 puff IH DAILY 04/23/18 Isosorbide Mononitrate [Imdur 30 mg Tablet.er] 30 mg PO DAILY 04/23/18 Lactulose [Cephulac Syrup 20 gm/30 ml Udcup] 20 gm PO DAILYP PRN 04/23/18 Omeprazole 40 mg PO DAILY 04/23/18 Terazosin HCl [Hytrin] 2 mg PO QHS 04/23/18 Vancomycin HCl [Vancocin Inj 500 mg Vial] 125 mg PO Q6A 7 Days #42 vial 04/25/18 Allergies/Adverse Reactions: No Known Allergies Allergy (Verified 04/22/18 12:11) Review of Systems Constitutional: ABSENT: chills, fever(s), headache(s), weight gain, weight loss Eyes: ABSENT: visual disturbances Ears: ABSENT: hearing changes Cardiovascular: ABSENT: chest pain, dyspnea on exertion, edema, orthropnea, palpitations Respiratory: ABSENT: cough, hemoptysis Gastrointestinal: PRESENT: as per HPI, bloating, diarrhea, nausea. ABSENT: abdominal pain, constipation, hematemesis, hematochezia, vomiting Genitourinary: PRESENT: as per HPI, difficulty urinating, dysuria. ABSENT: hematuria Musculoskeletal: ABSENT: joint swelling Integumentary: ABSENT: rash, wounds Neurological: ABSENT: abnormal gait, abnormal speech, confusion, dizziness, focal weakness, syncope Psychiatric: ABSENT: anxiety, depression, homidical ideation, suicidal ideation Endocrine: ABSENT: cold intolerance, heat intolerance, polydipsia, polyuria Hematologic/Lymphatic: ABSENT: easy bleeding, easy bruising Physical Exam Vital Signs: Temp Pulse Resp BP Pulse Ox 97.8 F 76 18 125/60 97 06/08/18 02:06 06/08/18 03:53 06/08/18 02:06 06/08/18 03:53 06/08/18 02:06 Intake & Output 06/06/18 06/07/18 06/08/18 11:59 11:59 11:59 Intake Total 50 Output Total 220 Balance -170 Weight 92.4 kg General appearance: PRESENT: cooperative, mild distress, well-developed, well- nourished Head exam: PRESENT: atraumatic, normocephalic Eye exam: PRESENT: conjunctiva pink, EOMI, PERRLA. ABSENT: scleral icterus Ear exam: PRESENT: normal external ear exam Mouth exam: PRESENT: moist, tongue midline Neck exam: ABSENT: carotid bruit, JVD, lymphadenopathy, thyromegaly Respiratory exam: PRESENT: tachypnea. ABSENT: rales, rhonchi, wheezes Cardiovascular exam: PRESENT: RRR. ABSENT: diastolic murmur, rubs, systolic murmur Pulses: PRESENT: normal dorsalis pedis pul Vascular exam: PRESENT: normal capillary refill GI/Abdominal exam: PRESENT: normal bowel sounds, soft, tenderness. ABSENT: distended, guarding, mass, organolmegaly, rebound Rectal exam: PRESENT: deferred Extremities exam: PRESENT: full ROM. ABSENT: calf tenderness, clubbing, pedal edema Neurological exam: PRESENT: alert, awake, oriented to person, oriented to place, oriented to time, oriented to situation, CN II-XII grossly intact. ABSENT: motor sensory deficit Psychiatric exam: PRESENT: appropriate affect, normal mood. ABSENT: homicidal ideation, suicidal ideation Skin exam: PRESENT: dry, intact, warm. ABSENT: cyanosis, rash Results Laboratory Results: 06/07/18 21:19 06/07/18 21:19 06/07/18 06/07/18 06/07/18 21:19 21:19 21:19 WBC 15.0 H RBC 3.72 L Hgb 12.1 L Hct 35.8 L MCV 96 MCH 32.6 MCHC 33.9 RDW 18.3 H Plt Count 435 Seg Neutrophils % 80.6 H Lymphocytes % 9.0 L Monocytes % 8.5 Eosinophils % 0.9 Basophils % 1.0 Absolute Neutrophils 12.1 H Absolute Lymphocytes 1.3 Absolute Monocytes 1.3 Absolute Eosinophils 0.1 Absolute Basophils 0.2 VBG pH VBG pCO2 VBG HCO3 VBG Base Excess Sodium 137.4 Potassium 2.9 L* Chloride 92 L Carbon Dioxide 23 Anion Gap 22 H BUN 43 H Creatinine 8.70 H Est GFR ( Amer) 7 L Est GFR (Non-Af Amer) 6 L Glucose 198 H Lactic Acid Calcium 8.1 L Magnesium Total Bilirubin 0.5 AST 13 L ALT 7 L Alkaline Phosphatase 222 H Total Protein 8.0 Albumin 4.3 Urine Color YELLOW Urine Appearance TURBID Urine pH 5.0 Ur Specific [place] 1.022 Urine Protein 100 H Urine Glucose (UA) >=500 H Urine Ketones NEGATIVE Urine Blood SMALL H Urine Nitrite NEGATIVE Ur Leukocyte Esterase MODERATE H Urine WBC (Auto) >182 06/07/18 06/08/18 06/08/18 21:19 02:30 02:30 WBC RBC Hgb Hct MCV MCH MCHC RDW Plt Count Seg Neutrophils % Lymphocytes % Monocytes % Eosinophils % Basophils % Absolute Neutrophils Absolute Lymphocytes Absolute Monocytes Absolute Eosinophils Absolute Basophils VBG pH 7.37 VBG pCO2 44.3 VBG HCO3 24.7 VBG Base Excess -0.8 Sodium Potassium Chloride Carbon Dioxide Anion Gap BUN Creatinine Est GFR ( Amer) Est GFR (Non-Af Amer) Glucose Lactic Acid 1.8 Calcium Magnesium 1.6 Total Bilirubin AST ALT Alkaline Phosphatase Total Protein Albumin Urine Color Urine Appearance Urine pH Ur Specific [place] Urine Protein Urine Glucose (UA) Urine Ketones Urine Blood Urine Nitrite Ur Leukocyte Esterase Urine WBC (Auto) Assessment & Plan - Diagnosis (1) Peritonitis associated with peritoneal dialysis Is this a current diagnosis for this admission?: Yes Plan: Unclear if contributing to current presentation. Empiric antibiotic coverage. Follow-up peritoneal fluid analysis and culture. (2) UTI (urinary tract infection) Qualifiers: Urinary tract infection type: acute cystitis Hematuria presence: with hematuria Qualified Code(s): N30.01 - Acute cystitis with hematuria Is this a current diagnosis for this admission?: Yes Plan: Pyuria from catheterized urine. Empiric antibiotics initiated, follow-up urine and blood culture. (3) End stage renal disease on dialysis Is this a current diagnosis for this admission?: Yes Plan: Nephrology consultation (4) Anemia in chronic kidney disease Is this a current diagnosis for this admission?: Yes Plan: Currently stable, defer to nephrology - Time Time Spent: 50 to 70 Minutes - Inpatient Certification Medical Necessity: Need Close Monitoring Due to Risk of Patient Decompensation
[2018-06-08] MEDS: INSULIN LISPRO 100 UNIT/ML 3 ML VIAL SUBCUT SCH ×3 (08:19→16:43)
[2018-06-08] MEDS ORDERED: IPRATROPIUM/ALBUTEROL 120 PUFF/4 GM MDI IH SCH (10:00)
[2018-06-08] MEDS ORDERED: FOLIC ACID PO SCH (10:00)
[2018-06-08] MEDS ORDERED: VITAMIN B COMP W C PO SCH (10:00)
[2018-06-08] MEDS: ASPIRIN 81 MG TABLET, ENT COATED PO SCH (10:01)
[2018-06-08] MEDS: ESCITALOPRAM OXALATE 10 MG TABLET PO SCH (10:01)
[2018-06-08] MEDS: ISOSORBIDE MONONITRATE 30 MG TAB.ER.24H PO SCH (10:01)
[2018-06-08] MEDS: DOCUSATE SODIUM 100 MG CAPSULE PO SCH ×2 (10:01→18:15)
[2018-06-08] MEDS: LACTULOSE SYRUP 20 GM/30 ML UDCUP PO SCH (10:02)
[2018-06-08] MEDS: FINASTERIDE 5 MG TABLET PO SCH (10:02)
[2018-06-08] MEDS: CARVEDILOL 12.5 MG TABLET PO SCH ×2 (10:02→22:33)
[2018-06-08] MEDS: GENTAMICIN SULFATE 0.1% OINTMENT 15 GM TP SCH (10:05)
--- NOTE | 2018-06-08 10:28 | PROGRESS NOTE E ---
Progress Note NAME: CELIO WAGNER : 1950 AGE: 67Y DATE: 06/08/2018 ROOM: 408 SUBJECTIVE: The patient is a pleasant 67-year-old male who had a past medical history of end-stage renal disease on peritoneal dialysis, admitted due to abdominal pain. His cartridge belt puncher is Dr. Ba Evans. He had and he was treated for presumptive peritonitis, UTI. The patient started on antibiotics and is feeling better now. OBJECTIVE: GENERAL: The patient is lying in bed comfortably. Not in distress. VITAL SIGNS: Blood pressure 115/44, heart rate 77, respiratory rate 18. HEENT: Normocephalic/atraumatic. Pupils equal, round, reactive to light and accommodation. Extraocular movements intact. Ears: Tympanic membranes clear bilaterally. No discharge from the ears, no discharge from the nose. NECK: Supple. No acute JVD, no thyromegaly. No lymphadenopathy. CARDIOVASCULAR: Normal S1, S2, regular rate and rhythm. No murmur, no gallop. RESPIRATORY: Lungs clear. ABDOMEN: Soft, nontender. MUSCULOSKELETAL: No edema. NEUROLOGIC: Awake, alert. LABORATORY: White blood count 15, hemoglobin 12.1, hematocrit 35. Sodium 137, potassium 2.9, creatinine 8.6, BUN 43. ASSESSMENT: 1. END-STAGE RENAL DISEASE. On peritoneal dialysis. 2. ABDOMINAL PAIN. I doubt peritonitis 3. URINARY TRACT INFECTION. 4. ANEMIA OF CHRONIC DISEASE SECONDARY TO HYPOTHYROIDISM, ABDOMINAL PAIN. PLAN: 1. Discontinue Moraes catheter. 2. Continue antibiotics. Nephrology consult with Dr. Ba Evans. Medical necessity: IV antibiotics. Time spent 25 minutes. DICTATING PHYSICIAN: YVONNE FINN M.D. [id number] PHY#: [id number] ID: [id number] JOB#: [id number] ACCT: [id number] cc: > MTDD
[2018-06-08 10:45] LABS: ABSOLUTE BASOPHILS # (AUTO) 0.1 10^3/uL (0.0-0.2); ABSOLUTE EOSINOPHILS # (AUTO) 0.1 10^3/uL (0.0-0.6); ABSOLUTE LYMPHOCYTES (AUTO) 0.9 10^3/uL (0.5-4.7); ABSOLUTE NEUT (AUTO) 8.7 10^3/uL (1.7-8.2); BASOPHILS % (AUTO) 0.9 % (0-2); EOSINOPHILS % (AUTO) 1.2 % (0-6); HEMOGLOBIN 10.6 g/dL (13.5-17.0); LYMPHOCYTES % (AUTO) 8.1 % (13-45); MEAN CORPUSCULAR HEMOGLOBIN 32.2 pg (27.0-33.4); MEAN CORPUSCULAR HGB CONC 33.3 g/dL (32.0-36.0); MEAN CORPUSCULAR VOLUME 97 fl (80-97); MONOCYTES % (AUTO) 9.2 % (3-13); PLATELET COUNT 349 10^3/uL (150-450); RED CELL DISTRIBUTION WIDTH 18.8 % (11.5-14.0); SEGMENTED NEUTROPHILS % (AUTO) 80.6 % (42-78); TOTAL CELLS COUNTED % (AUTO) 100 %; WHITE BLOOD COUNT 10.8 10^3/uL (4.0-10.5)
[2018-06-08] MEDS ORDERED: POTASSIUM CHLORIDE 10 MEQ CAPSULE.ER PO ONE (11:30)
[2018-06-08 15:03] LABS: ALBUMIN 3.4 g/dL (3.5-5.0); ANION GAP 19 (5-19); BLOOD UREA NITROGEN 43 mg/dL (7-20); CALCIUM 7.5 mg/dL (8.4-10.2); CARBON DIOXIDE 23 mmol/L (22-30); CHLORIDE 96 mmol/L (98-107); GLUCOSE 229 mg/dL (75-110); PHOSPHORUS 5.8 mg/dL (2.5-4.5); SODIUM 137.9 mmol/L (137-145)
[2018-06-08 15:08] LABS: POTASSIUM 2.8 mmol/L (3.6-5.0)
[2018-06-08 15:28] LABS: FLUID APPEARANCE CLEAR; FLUID COLOR COLORLESS; FLUID SOURCE ABDOMEN; FLUID TYPE PERITONEAL; FLUID VISCOSITY LIQUID
[2018-06-08 15:58] LABS: ANION GAP 15 (5-19); BLOOD UREA NITROGEN 44 mg/dL (7-20); CALCIUM 7.5 mg/dL (8.4-10.2); CARBON DIOXIDE 23 mmol/L (22-30); CHLORIDE 100 mmol/L (98-107); GLUCOSE 213 mg/dL (75-110); POTASSIUM 3.3 mmol/L (3.6-5.0); SODIUM 138.2 mmol/L (137-145)
[2018-06-08] MEDS ORDERED: VANCOMYCIN HCL INJ 500 MG VIAL ONE (18:00)
[2018-06-08] MEDS: VANCOMYCIN HCL INJ 500 MG VIAL PO SCH (18:25)
[2018-06-08] MEDS ORDERED: INSULIN GLARGINE,HUM.REC.ANLOG 1,000 UNIT/10 ML VIAL (PYX) SUBCUT SCH (22:00)
[2018-06-08] MEDS: ATORVASTATIN CALCIUM 80 MG TABLET PO SCH (22:33)
[2018-06-08] MEDS: DOXAZOSIN MESYLATE 2 MG TABLET PO SCH (22:33)
[2018-06-08] MEDS: METRONIDAZOLE 500 MG TABLET PO SCH (22:33)
[2018-06-08] MEDS: INSULIN GLARGINE,HUM.REC.ANLOG 300 UNIT/3 ML INSULN.PEN SUBCUT SCH (22:34)
[2018-06-09] MEDS: VANCOMYCIN HCL INJ 500 MG VIAL PO SCH ×4 (01:06→17:28)
[2018-06-09 06:24] LABS: ABSOLUTE BASOPHILS # (AUTO) 0.1 10^3/uL (0.0-0.2); ABSOLUTE EOSINOPHILS # (AUTO) 0.2 10^3/uL (0.0-0.6); ABSOLUTE LYMPHOCYTES (AUTO) 1.6 10^3/uL (0.5-4.7); ABSOLUTE MONOCYTES (AUTO) 0.9 10^3/uL (0.1-1.4); BASOPHILS % (AUTO) 0.9 % (0-2); EOSINOPHILS % (AUTO) 2.7 % (0-6); HEMATOCRIT 27.6 % (37.9-51.0); HEMOGLOBIN 9.3 g/dL (13.5-17.0); LYMPHOCYTES % (AUTO) 18.5 % (13-45); MEAN CORPUSCULAR HEMOGLOBIN 32.4 pg (27.0-33.4); MEAN CORPUSCULAR HGB CONC 33.5 g/dL (32.0-36.0); MEAN CORPUSCULAR VOLUME 97 fl (80-97); MONOCYTES % (AUTO) 10.4 % (3-13); PLATELET COUNT 334 10^3/uL (150-450); RED BLOOD COUNT 2.86 10^6/uL (4.35-5.55); RED CELL DISTRIBUTION WIDTH 18.6 % (11.5-14.0); SEGMENTED NEUTROPHILS % (AUTO) 67.5 % (42-78); TOTAL CELLS COUNTED % (AUTO) 100 %; WHITE BLOOD COUNT 8.9 10^3/uL (4.0-10.5)
[2018-06-09 06:43] LABS: ANION GAP 12 (5-19); BLOOD UREA NITROGEN 41 mg/dL (7-20); CALCIUM 7.2 mg/dL (8.4-10.2); CARBON DIOXIDE 26 mmol/L (22-30); CHLORIDE 99 mmol/L (98-107); GLUCOSE 231 mg/dL (75-110); SODIUM 137.4 mmol/L (137-145)
[2018-06-09] MEDS: PANTOPRAZOLE SODIUM 40 MG TABLET.DR PO SCH (06:46)
[2018-06-09] MEDS: HEPARIN SOD (PORCINE) 5,000 UNIT/ML 1 ML SYRINGE SUBCUT SCH ×3 (06:46→22:05)
[2018-06-09 07:07] LABS: POTASSIUM 2.8 mmol/L (3.6-5.0)
[2018-06-09] MEDS: INSULIN LISPRO 100 UNIT/ML 3 ML VIAL SUBCUT SCH ×3 (08:10→15:33)
[2018-06-09] MEDS ORDERED: POTASSI CL 20 MEQ/50 ML RIDER 20 MEQ/50 ML RTUPB IV SCH (11:30)
[2018-06-09] MEDS: GENTAMICIN SULFATE 0.1% OINTMENT 15 GM TP SCH (13:37)
[2018-06-09] MEDS: POTASSIUM CHLORIDE 10 MEQ CAPSULE.ER PO SCH (13:38)
[2018-06-09] MEDS: ASPIRIN 81 MG TABLET, ENT COATED PO SCH (13:38)
[2018-06-09] MEDS: DOCUSATE SODIUM 100 MG CAPSULE PO SCH ×2 (13:38→17:28)
[2018-06-09] MEDS: CARVEDILOL 12.5 MG TABLET PO SCH ×2 (13:38→22:06)
[2018-06-09] MEDS: ESCITALOPRAM OXALATE 10 MG TABLET PO SCH (13:39)
[2018-06-09] MEDS: ISOSORBIDE MONONITRATE 30 MG TAB.ER.24H PO SCH (13:39)
[2018-06-09] MEDS: FINASTERIDE 5 MG TABLET PO SCH (13:39)
[2018-06-09] MEDS: LACTULOSE SYRUP 20 GM/30 ML UDCUP PO SCH (13:39)
[2018-06-09] MEDS: METRONIDAZOLE 500 MG TABLET PO SCH ×2 (13:39→22:06)
[2018-06-09] MEDS: CEFTRIAXONE 1 GM/D5W RTU 1 GM/50 ML RTUPB IV SCH (13:50)
[2018-06-09] MEDS: POTASSIUM CHLORIDE 20 MEQ/50 ML RTU IV SCH ×2 (14:45→17:13)
[2018-06-09] MEDS: IPRATROPIUM/ALBUTEROL 0.5-2.5 MG/3 ML AMPUL NEB PRN (16:26)
--- NOTE | 2018-06-09 18:53 | PROGRESS NOTE E ---
Progress Note NAME: CELIO WAGNER : 1950 AGE: 67Y DATE: 06/09/2018 ROOM: 408 SUBJECTIVE: The patient is a pleasant 67-year-old male who has a past medical history significant for end-stage renal disease on peritoneal dialysis, admitted due to abdominal pain. 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 Ba Evans. The patient has diarrhea. He was found to have C. diff and the patient also treated for presumptive peritonitis, UTI. Started on IV antibiotics and yesterday he was started on vancomycin p.o. and Flagyl for C. diff. The patient's diarrhea improved today and his potassium is low and that replaced. OBJECTIVE: GENERAL: The patient is lying in bed, comfortable, not in distress. VITAL SIGNS: Blood pressure is 107/75, heart rate 71, afebrile. HEENT: Head normocephalic, atraumatic. Pupils round, reactive to light and accommodation bilaterally. Extraocular movements intact. Ears: Tympanic membranes intact bilaterally. No discharge from the ear. No discharge from the nose. NECK: Supple, no increased JVD, no thyromegaly, no lymphadenopathy. CARDIOVASCULAR: Normal S1, S2. Regular rate and rhythm. No murmur, no gallops. RESPIRATORY: Lungs clear. ABDOMEN: Soft, nontender. MUSCULOSKELETAL: No edema. NEUROLOGIC: Awake, alert. SKIN: No rash. LABORATORY DATA: Sodium is 137, potassium 2.8, CO2 is 26, creatinine 7.7, BUN is 41. White blood count 8.9, hemoglobin 9.3. ASSESSMENT: 1. END-STAGE RENAL DISEASE ON PERITONEAL DIALYSIS. 2. HYPOKALEMIA. 3. ABDOMINAL PAIN, THE PATIENT DID NOT HAVE PERITONITIS. 4. CLOSTRIDIUM DIFFICILE COLITIS. 5. ANEMIA OF CHRONIC DISEASE. 6. URINARY TRACT INFECTION. PLAN: 1. Replace his hypokalemia. 2. Continue vancomycin p.o. and Flagyl p.o. for C. diff. 3. Continue ceftriaxone IV for UTI. MEDICAL NECESSITY: The patient needs IV antibiotics. DISPOSITION: We will discharge him tomorrow morning. DICTATING PHYSICIAN: YVONNE FINN M.D. [id number] PHY#: [id number] ID: [id number] JOB#: [id number] ACCT: [id number] cc: >
[2018-06-09] MEDS: ATORVASTATIN CALCIUM 80 MG TABLET PO SCH (22:06)
[2018-06-09] MEDS: DOXAZOSIN MESYLATE 2 MG TABLET PO SCH (22:06)
[2018-06-09] MEDS: INSULIN GLARGINE,HUM.REC.ANLOG 300 UNIT/3 ML INSULN.PEN SUBCUT SCH (22:07)
[2018-06-10 05:09] LABS: ABSOLUTE BASOPHILS # (AUTO) 0.1 10^3/uL (0.0-0.2); ABSOLUTE EOSINOPHILS # (AUTO) 0.3 10^3/uL (0.0-0.6); ABSOLUTE LYMPHOCYTES (AUTO) 1.4 10^3/uL (0.5-4.7); ABSOLUTE MONOCYTES (AUTO) 0.6 10^3/uL (0.1-1.4); ABSOLUTE NEUT (AUTO) 7.4 10^3/uL (1.7-8.2); BASOPHILS % (AUTO) 1.4 % (0-2); EOSINOPHILS % (AUTO) 3.4 % (0-6); HEMATOCRIT 29.1 % (37.9-51.0); HEMOGLOBIN 9.7 g/dL (13.5-17.0); LYMPHOCYTES % (AUTO) 13.9 % (13-45); MEAN CORPUSCULAR HEMOGLOBIN 32.1 pg (27.0-33.4); MEAN CORPUSCULAR HGB CONC 33.2 g/dL (32.0-36.0); MEAN CORPUSCULAR VOLUME 97 fl (80-97); MONOCYTES % (AUTO) 6.4 % (3-13); PLATELET COUNT 333 10^3/uL (150-450); RED BLOOD COUNT 3.02 10^6/uL (4.35-5.55); RED CELL DISTRIBUTION WIDTH 18.5 % (11.5-14.0); SEGMENTED NEUTROPHILS % (AUTO) 74.9 % (42-78); TOTAL CELLS COUNTED % (AUTO) 100 %; WHITE BLOOD COUNT 9.9 10^3/uL (4.0-10.5)
[2018-06-10] MEDS: HEPARIN SOD (PORCINE) 5,000 UNIT/ML 1 ML SYRINGE SUBCUT SCH ×3 (06:14→22:48)
[2018-06-10] MEDS: VANCOMYCIN HCL INJ 500 MG VIAL PO SCH ×5 (06:14→23:31)
[2018-06-10] MEDS: PANTOPRAZOLE SODIUM 40 MG TABLET.DR PO SCH (06:14)
[2018-06-10 06:27] LABS: ANION GAP 13 (5-19); BLOOD UREA NITROGEN 41 mg/dL (7-20); CALCIUM 7.2 mg/dL (8.4-10.2); CARBON DIOXIDE 22 mmol/L (22-30); CHLORIDE 102 mmol/L (98-107); GLUCOSE 227 mg/dL (75-110); POTASSIUM 3.2 mmol/L (3.6-5.0); SODIUM 136.9 mmol/L (137-145)
[2018-06-10 06:58] LABS: ALBUMIN 2.8 g/dL (3.5-5.0); PHOSPHORUS 5.4 mg/dL (2.5-4.5)
[2018-06-10] MEDS ORDERED: POTASSIUM CHLORIDE 10 MEQ CAPSULE.ER PO ONE (09:06)
[2018-06-10] MEDS: INSULIN LISPRO 100 UNIT/ML 3 ML VIAL SUBCUT SCH ×3 (09:41→16:50)
[2018-06-10] MEDS: POTASSIUM CHLORIDE 10 MEQ CAPSULE.ER PO SCH (09:42)
[2018-06-10] MEDS: ASPIRIN 81 MG TABLET, ENT COATED PO SCH (09:45)
[2018-06-10] MEDS: CARVEDILOL 12.5 MG TABLET PO SCH ×2 (09:45→22:47)
[2018-06-10] MEDS: ISOSORBIDE MONONITRATE 30 MG TAB.ER.24H PO SCH (09:46)
[2018-06-10] MEDS: FINASTERIDE 5 MG TABLET PO SCH (09:46)
[2018-06-10] MEDS: ESCITALOPRAM OXALATE 10 MG TABLET PO SCH (09:46)
[2018-06-10] MEDS: DOCUSATE SODIUM 100 MG CAPSULE PO SCH ×2 (09:49→17:25)
[2018-06-10] MEDS: LACTULOSE SYRUP 20 GM/30 ML UDCUP PO SCH (09:49)
[2018-06-10] MEDS: CEFTRIAXONE 1 GM/D5W RTU 1 GM/50 ML RTUPB IV SCH (09:59)
[2018-06-10] MEDS ORDERED: ACETAMINOPHEN 325 MG TABLET ONE (10:01)
[2018-06-10] MEDS ORDERED: ACETAMINOPHEN 325 MG TABLET PO PRN (10:04)
[2018-06-10] MEDS: IPRATROPIUM/ALBUTEROL 0.5-2.5 MG/3 ML AMPUL NEB PRN (11:11)
--- NOTE | 2018-06-10 11:55 | PDOC CONSULTATION ---
Consultation Consult Date: 06/10/18 Consult reason:: Peritoneal dialysis History of Present Illness Admission Date/PCP: 06/08/18 01:46 K Emma GANDHI MD History of Present Illness: CELIO WAGNER is a 67 year old male with a past medical history of end-stage renal failure on peritoneal dialysis, congestive heart failure, hypertension, COPD, insulin-dependent diabetes, and BPH. He was admitted with history of progressive dysuria and lower abdominal pains but without any fever or chills.Is also been having loose watery stools 5-6/ day for the last 1 week or so. No history of recent antibiotics. Evaluations in the ER revealed that the patient had UTI and he was also positive for C. difficile. He has been begun on IV antibiotics for E. coli/Klebsiella UTI while being put on Flagyl/vancomycin p.o. for his C. difficile.Currently his frequency of watery stools is improved and so far he has had semi-formed stool x1 only this morning.Patient admits to having difficulty in urination.Labs and medications were reviewed with the patient. PD dialysis orders were reviewed with the treating nurse on the floor [facility]. Past Medical History Cardiac Medical History: Reports: CHF-Diastolic, Coronary Artery Disease, Hyperlipidemia, Hypertension-primary, Myocardial Infarction - Twice with stents placed, Pulmonary Hypertension Denies: Atrial Fibrillation, DVT, Pulmonary Embolism Pulmonary Medical History: Reports: Chronic Obstructive Pulmonary Disease (COPD), Respiratory Failure Denies: Asthma Neurological Medical History: Denies: Seizures Endocrine Medical History: Reports: Diabetes Mellitus Type 2 Denies: Diabetes Mellitus Type 1, Hyperthyroidism, Hypothyroidism Complications of Diabetes: Reports: Autonomic Neuropathy, Diabetic Foot Ulcer, Nephropathy, Retinopathy Renal/ Medical History: Reports: Benign Prostatic Hyperplasia, End Stage Renal Disease, Hypocalcemia, Hyperphosphatemia, Secondary Hyperparathyroidism GI Medical History: Reports: Diverticulitis Denies: Cirrhosis, Hepatitis Musculoskeltal Medical History: Denies: Arthritis, Gout Skin Medical History: Denies: Eczema, Psoriasis Psychiatric Medical History: Reports: Depression Infectious Medical History: Reports: Clostridium Difficile Hematology Medical History: Reports Anemia of Chronic Kidney Disease Past Surgical History Past Surgical History: Reports: Dialysis Access Surgery PD, Other - Small bowel resection for diverticulitis; adhesion lysis April 2017 Social History Lives with: Family Smoking Status: Unknown if Ever Smoked Frequency of Alcohol Use: Rare Hx Recreational Drug Use: No Drugs: None Hx Prescription Drug Abuse: No - Advance Directive Resuscitation Status: Full Code Family History Parental Family History Reviewed: Yes - Negative for ESRD. Children Family History Reviewed: No Sibling(s) Family History Reviewed.: No Medication/Allergy Home Medications: Aspirin [Ecotrin 81 mg EC Tablet] 81 mg PO DAILY 04/23/18 Atorvastatin Calcium [Lipitor 80 mg Tablet] 80 mg PO QHS 04/23/18 Carvedilol [Coreg 12.5 mg Tablet] 12.5 mg PO Q12 04/23/18 Docusate Sodium [Colace 100 mg Capsule] 200 mg PO BID 04/23/18 Escitalopram Oxalate [Lexapro 10 mg Tablet] 10 mg PO DAILY 04/23/18 Finasteride [Proscar 5 mg Tablet] 5 mg PO DAILY 04/23/18 Folic Acid/Vitamin B Comp W-C [Renal Multivitamin Tablet] 1 tab PO DAILY 9 Insulin Aspart [Novolog Insulin (Aspart) 100 unit/mL] 0 unit SUBCUT .SLD SCALE 04/23/18 Insulin Glargine,Hum.rec.anlog [Lantus Insulin 100 Unit/1 ml 10 ml] 80 unit SUBCUT QHS 04/23/18 Ipratropium/Albuterol Sulfate [Combivent Respimat 4 gm Mdi] 1 puff IH DAILY 04/23/18 Isosorbide Mononitrate [Imdur 30 mg Tablet.er] 30 mg PO DAILY 04/23/18 Lactulose [Cephulac Syrup 20 gm/30 ml Udcup] 20 gm PO DAILYP PRN 04/23/18 Omeprazole 40 mg PO DAILY 04/23/18 Terazosin HCl [Hytrin] 2 mg PO QHS 04/23/18 Allergies/Adverse Reactions: No Known Allergies Allergy (Verified 04/22/18 12:11) Review of Systems Constitutional: PRESENT: fatigue. ABSENT: anorexia, chills, fever(s), headache(s), night sweats Nose, Mouth, and Throat: ABSENT: mouth pain, sore throat Cardiovascular: ABSENT: chest pain, dyspnea on exertion, edema, orthropnea, palpitations Gastrointestinal: PRESENT: abdominal pain, diarrhea. ABSENT: bloating, coffee ground emesis, dysphagia, heartburn, hematemesis, hematochezia, melena, nausea Genitourinary: PRESENT: difficulty urinating, dysuria. ABSENT: hematuria Musculoskeletal: ABSENT: deformity, joint swelling Integumentary: ABSENT: erythema, lesions, pruritus, rash Neurological: ABSENT: abnormal gait, abnormal movements, abnormal speech, confusion, focal weakness, frequent falls, lack of coordination Psychiatric: ABSENT: anxiety, depression Endocrine: ABSENT: cold intolerance, heat intolerance, polydipsia Hematologic/Lymphatic: ABSENT: easy bleeding, easy bruising, lymphadenopathy Physical Exam Vital Signs: Temp Pulse Resp BP Pulse Ox 98.4 F 77 18 127/58 H 97 06/10/18 08:11 06/10/18 11:12 06/10/18 11:12 06/10/18 08:11 06/10/18 11:12 Intake & Output 06/09/18 06/10/18 06/11/18 06:59 06:59 06:59 Intake Total 86944 72440 50 Output Total 97823 5400 Balance 2868 4750 50 Weight 96.8 kg 97.8 kg General appearance: PRESENT: no acute distress Eye exam: PRESENT: conjunctiva pink, EOMI, PERRLA Ear exam: PRESENT: normal external ear exam Mouth exam: PRESENT: neck supple. ABSENT: moist Neck exam: ABSENT: lymphadenopathy, meningismus, tenderness, thyromegaly, tracheal deviation Respiratory exam: PRESENT: clear to auscultation yair. ABSENT: crackles, decreased breath sounds Cardiovascular exam: PRESENT: +S1, +S2, systolic murmur GI/Abdominal exam: PRESENT: normal bowel sounds, soft. ABSENT: organomegaly, tenderness Extremities exam: ABSENT: pedal edema Neurological exam: PRESENT: alert, awake, oriented to person, oriented to place, oriented to time Psychiatric exam: PRESENT: appropriate affect. ABSENT: anxious Skin exam: PRESENT: dry, normal color. ABSENT: cyanosis, petechiae, rash Results Laboratory Results: 06/10/18 04:07 06/10/18 05:53 06/10/18 06/10/18 06/10/18 04:07 04:07 05:53 WBC 9.9 RBC 3.02 L Hgb 9.7 L Hct 29.1 L MCV 97 MCH 32.1 MCHC 33.2 RDW 18.5 H Plt Count 333 Seg Neutrophils % 74.9 Lymphocytes % 13.9 Monocytes % 6.4 Eosinophils % 3.4 Basophils % 1.4 Absolute Neutrophils 7.4 Absolute Lymphocytes 1.4 Absolute Monocytes 0.6 Absolute Eosinophils 0.3 Absolute Basophils 0.1 Sodium Cancelled 136.9 L Potassium Cancelled 3.2 L Chloride Cancelled 102 Carbon Dioxide Cancelled 22 Anion Gap Cancelled 13 BUN Cancelled 41 H Creatinine Cancelled 6.37 H Est GFR ( Amer) Cancelled 11 L Est GFR (Non-Af Amer) Cancelled 9 L Glucose Cancelled 227 H Calcium Cancelled 7.2 L Phosphorus 5.4 H Albumin 2.8 L 06/10/18 05:53 WBC RBC Hgb Hct MCV MCH MCHC RDW Plt Count Seg Neutrophils % Lymphocytes % Monocytes % Eosinophils % Basophils % Absolute Neutrophils Absolute Lymphocytes Absolute Monocytes Absolute Eosinophils Absolute Basophils Sodium Cancelled Potassium Cancelled Chloride Cancelled Carbon Dioxide Cancelled Anion Gap Cancelled BUN Cancelled Creatinine Cancelled Est GFR ( Amer) Cancelled Est GFR (Non-Af Amer) Cancelled Glucose Cancelled Calcium Cancelled Phosphorus Cancelled Albumin Cancelled 06/07/18 21:19 Moraes Catheter Urine Culture - Final C.albicans/C.dubliniensis Assessment & Plan - Diagnosis (1) Clostridium difficile colitis Plan: Patient improving both clinically and lab cotter on current treatments of Flagyl/bank.. Continue the same. (2) UTI (urinary tract infection) Qualifiers: Urinary tract infection type: acute cystitis Hematuria presence: with hematuria Qualified Code(s): N30.01 - Acute cystitis with hematuria Is this a current diagnosis for this admission?: Yes Plan: Polymicrobial UTI. Patient also showing fungal elements. Continue on antibiotics but will also add Diflucan. Needs to have workup done for prostatic enlargement as he has got symptoms indicate BPH and needs to be addressed to pr event further recurrent UTI. Recommend outpatient evaluation with urologist once he is discharged. (3) End stage renal disease on dialysis Is this a current diagnosis for this admission?: Yes Plan: Patient undergoing peritoneal dialysis without any issues. Dialysis orders were reviewed with the treating nurse on the floor [facility]. Patient should only be on 1.5% solution given his low blood pressures and rather dehydrated state. Advised nurse to give 200 cc of normal saline and blood pressure dropped below 110 systolic and to inform me. (4) Anemia in chronic kidney disease Is this a current diagnosis for this admission?: Yes Plan: We will arrange for erythropoietin weekly. (5) Dehydration Plan: She still responds to judicious use of appropriate PD fluids. If necessary will rehydrate him with saline. Discussed with treating nurse on the floor. (6) Diabetes mellitus type 2 in obese Plan: Advised tight control. (7) Hypokalemia Plan: On replacements. Monitor.
[2018-06-10] MEDS: METRONIDAZOLE 500 MG TABLET PO SCH ×2 (12:09→22:48)
[2018-06-10] MEDS: FOLIC ACID/VITAMIN B COMP W-C CAPSULE PO SCH (12:15)
[2018-06-10] MEDS ORDERED: MORPHINE SULFATE 10 MG/ML INJ ONE (13:18)
[2018-06-10] MEDS ORDERED: MORPHINE SULFATE 10 MG/ML INJ IV ONE (13:45)
--- NOTE | 2018-06-10 13:57 | PDOC PROGRESS REPORT ---
Subjective Progress Note for:: 06/10/18 Subjective:: This is a 67 yr old female with ESRD on peritoneal dialysis who was admitted for C diff colitis and UTI. Patient continues to have diarrhea. He had 4 loose stools overnight but he says they are less watery compared the past few days. Her is hypokalemic this morning. He does continue to complain of dysuria and hypogastric pain. No fever or chills. Anticipate discharge in the next 24-48 hrs if diarrhea continues to improve and electrolyte abnormalities have resolved. Reason For Visit: UTI ESRD C PD DIABETES Physical Exam Vital Signs: Temp Pulse Resp BP Pulse Ox 97.9 F 74 18 151/53 H 95 06/10/18 12:26 06/10/18 12:26 06/10/18 12:26 06/10/18 12:26 06/10/18 12:26 Intake & Output 06/09/18 06/10/18 06/11/18 06:59 06:59 06:59 Intake Total 81107 60145 2953 Output Total 98674 5400 2400 Balance 2868 4750 553 Weight 213 lb 6.519 oz 215 lb 9.793 oz 215 lb 9.793 oz General appearance: PRESENT: no acute distress, well-developed, well-nourished Head exam: PRESENT: atraumatic, normocephalic Eye exam: PRESENT: conjunctiva pink, EOMI, PERRLA. ABSENT: scleral icterus Ear exam: PRESENT: normal external ear exam Mouth exam: PRESENT: moist, tongue midline Neck exam: ABSENT: carotid bruit, JVD, lymphadenopathy, thyromegaly Respiratory exam: PRESENT: clear to auscultation yair. ABSENT: rales, rhonchi, wheezes Cardiovascular exam: PRESENT: RRR. ABSENT: diastolic murmur, rubs, systolic murmur Pulses: PRESENT: normal dorsalis pedis pul GI/Abdominal exam: PRESENT: normal bowel sounds, soft. ABSENT: distended, guarding, mass, organolmegaly, rebound, tenderness Rectal exam: PRESENT: deferred Neurological exam: PRESENT: alert, awake, oriented to person, oriented to place, oriented to time, oriented to situation, CN II-XII grossly intact. ABSENT: motor sensory deficit Results Laboratory Results: 06/10/18 04:07 06/10/18 05:53 06/10/18 06/10/18 06/10/18 04:07 04:07 05:53 WBC 9.9 RBC 3.02 L Hgb 9.7 L Hct 29.1 L MCV 97 MCH 32.1 MCHC 33.2 RDW 18.5 H Plt Count 333 Seg Neutrophils % 74.9 Lymphocytes % 13.9 Monocytes % 6.4 Eosinophils % 3.4 Basophils % 1.4 Absolute Neutrophils 7.4 Absolute Lymphocytes 1.4 Absolute Monocytes 0.6 Absolute Eosinophils 0.3 Absolute Basophils 0.1 Sodium Cancelled 136.9 L Potassium Cancelled 3.2 L Chloride Cancelled 102 Carbon Dioxide Cancelled 22 Anion Gap Cancelled 13 BUN Cancelled 41 H Creatinine Cancelled 6.37 H Est GFR ( Amer) Cancelled 11 L Est GFR (Non-Af Amer) Cancelled 9 L Glucose Cancelled 227 H Calcium Cancelled 7.2 L Phosphorus 5.4 H Albumin 2.8 L 06/10/18 05:53 WBC RBC Hgb Hct MCV MCH MCHC RDW Plt Count Seg Neutrophils % Lymphocytes % Monocytes % Eosinophils % Basophils % Absolute Neutrophils Absolute Lymphocytes Absolute Monocytes Absolute Eosinophils Absolute Basophils Sodium Cancelled Potassium Cancelled Chloride Cancelled Carbon Dioxide Cancelled Anion Gap Cancelled BUN Cancelled Creatinine Cancelled Est GFR ( Amer) Cancelled Est GFR (Non-Af Amer) Cancelled Glucose Cancelled Calcium Cancelled Phosphorus Cancelled Albumin Cancelled 06/07/18 21:19 Moraes Catheter Urine Culture - Final C.albicans/C.dubliniensis Assessment & Plan - Diagnosis (1) Clostridium difficile colitis Is this a current diagnosis for this admission?: Yes Plan: Continue Flagyl and vancomycin PO. Add probiotics. (2) UTI (urinary tract infection) Qualifiers: Urinary tract infection type: acute cystitis Hematuria presence: with hematuria Qualified Code(s): N30.01 - Acute cystitis with hematuria Is this a current diagnosis for this admission?: Yes Plan: Continue Rocephin. (3) End stage renal disease on dialysis Is this a current diagnosis for this admission?: Yes Plan: Nephrology. On peritoneal dialysis. (4) Hypokalemia Is this a current diagnosis for this admission?: Yes Plan: Replace Potassium. Will also check Mg. - Time Time Spent with patient: 25-34 minutes
[2018-06-10] MEDS ORDERED: EPOETIN ALFA INJ 20000 UNIT/1 ML VIAL (RENAL) SUBCUT SCH (14:00)
[2018-06-10] MEDS: FLUCONAZOLE 100 MG TABLET PO SCH (14:56)
[2018-06-10 15:10] LABS: ANION GAP 11 (5-19); BLOOD UREA NITROGEN 37 mg/dL (7-20); CALCIUM 7.8 mg/dL (8.4-10.2); CARBON DIOXIDE 28 mmol/L (22-30); CHLORIDE 99 mmol/L (98-107); GLUCOSE 171 mg/dL (75-110); SODIUM 138.1 mmol/L (137-145)
[2018-06-10] MEDS: LACTOBACILLUS ACIDOPHILUS 250 MG TAB PO SCH ×2 (15:13→17:25)
[2018-06-10] MEDS ORDERED: PHENAZOPYRIDINE HCL 100 MG TABLET PO PRN (15:16)
[2018-06-10] MEDS ORDERED: KETOROLAC TROMETHAMINE INJ/PF 30 MG/1 ML SDV ONE (16:41)
[2018-06-10] MEDS ORDERED: KETOROLAC TROMETHAMINE INJ/PF 30 MG/1 ML SDV IV ONE (17:15)
[2018-06-10] MEDS: GENTAMICIN SULFATE 0.1% OINTMENT 15 GM TP SCH (19:41)
[2018-06-10] MEDS: ATORVASTATIN CALCIUM 80 MG TABLET PO SCH (22:48)
[2018-06-10] MEDS: DOXAZOSIN MESYLATE 2 MG TABLET PO SCH (22:48)
[2018-06-10] MEDS: INSULIN GLARGINE,HUM.REC.ANLOG 300 UNIT/3 ML INSULN.PEN SUBCUT SCH (22:49)
[2018-06-11 06:06] LABS: ANION GAP 11 (5-19); BLOOD UREA NITROGEN 38 mg/dL (7-20); CALCIUM 7.4 mg/dL (8.4-10.2); CARBON DIOXIDE 25 mmol/L (22-30); CHLORIDE 102 mmol/L (98-107); GLUCOSE 231 mg/dL (75-110); POTASSIUM 3.3 mmol/L (3.6-5.0); SODIUM 138.2 mmol/L (137-145)
[2018-06-11] MEDS: VANCOMYCIN HCL INJ 500 MG VIAL PO SCH ×4 (06:28→23:19)
[2018-06-11] MEDS: HEPARIN SOD (PORCINE) 5,000 UNIT/ML 1 ML SYRINGE SUBCUT SCH ×3 (06:28→22:09)
[2018-06-11] MEDS: PANTOPRAZOLE SODIUM 40 MG TABLET.DR PO SCH (06:29)
[2018-06-11] MEDS: ASPIRIN 81 MG TABLET, ENT COATED PO SCH (09:19)
[2018-06-11] MEDS: DOCUSATE SODIUM 100 MG CAPSULE PO SCH ×2 (09:19→17:21)
[2018-06-11] MEDS: LACTOBACILLUS ACIDOPHILUS 250 MG TAB PO SCH ×2 (09:19→17:21)
[2018-06-11] MEDS: FOLIC ACID/VITAMIN B COMP W-C CAPSULE PO SCH (09:19)
[2018-06-11] MEDS: FINASTERIDE 5 MG TABLET PO SCH (09:20)
[2018-06-11] MEDS: POTASSIUM CHLORIDE 10 MEQ CAPSULE.ER PO SCH (09:20)
[2018-06-11] MEDS: LACTULOSE SYRUP 20 GM/30 ML UDCUP PO SCH (09:20)
[2018-06-11] MEDS: ESCITALOPRAM OXALATE 10 MG TABLET PO SCH (09:20)
[2018-06-11] MEDS: ISOSORBIDE MONONITRATE 30 MG TAB.ER.24H PO SCH (09:20)
[2018-06-11] MEDS: INSULIN LISPRO 100 UNIT/ML 3 ML VIAL SUBCUT SCH ×3 (09:21→17:20)
[2018-06-11] MEDS: CEFTRIAXONE 1 GM/D5W RTU 1 GM/50 ML RTUPB IV SCH (09:21)
[2018-06-11] MEDS: CARVEDILOL 12.5 MG TABLET PO SCH ×2 (09:54→22:09)
[2018-06-11] MEDS: FLUCONAZOLE 100 MG TABLET PO SCH (09:54)
[2018-06-11] MEDS: METRONIDAZOLE 500 MG TABLET PO SCH ×2 (09:54→22:08)
[2018-06-11] MEDS: GENTAMICIN SULFATE 0.1% OINTMENT 15 GM TP SCH (09:56)
[2018-06-11] MEDS: IPRATROPIUM/ALBUTEROL 0.5-2.5 MG/3 ML AMPUL NEB PRN (12:35)
--- NOTE | 2018-06-11 14:50 | PDOC PROGRESS REPORT ---
Subjective Progress Note for:: 06/11/18 Reason For Visit: He has been doing better since he has been on PD here. His diarrhea seems to have finally slowed down considerably. No abdominal pains fever chills. Dysuria better. Labs and medications reviewed today. Physical Exam Vital Signs: Temp Pulse Resp BP Pulse Ox 98.3 F 72 17 141/66 H 96 06/11/18 12:21 06/11/18 14:03 06/11/18 12:35 06/11/18 14:03 06/11/18 12:35 Intake & Output 06/10/18 06/11/18 06/12/18 06:59 06:59 06:59 Intake Total 55601 37394 5050 Output Total 5400 8900 2300 Balance 4750 1553 2750 Weight 97.8 kg 98.2 kg 97.1 kg General appearance: PRESENT: no acute distress Respiratory exam: PRESENT: clear to auscultation yair. ABSENT: crackles Cardiovascular exam: PRESENT: +S1, +S2, systolic murmur GI/Abdominal exam: PRESENT: normal bowel sounds, soft. ABSENT: organomegaly, tenderness Neurological exam: PRESENT: alert, awake, oriented to person, oriented to place Results Laboratory Results: 06/10/18 04:07 06/11/18 04:35 06/10/18 06/11/18 14:15 04:35 Sodium 138.1 138.2 Potassium 4.0 3.3 L Chloride 99 102 Carbon Dioxide 28 25 Anion Gap 11 11 BUN 37 H 38 H Creatinine 6.93 H 6.61 H Est GFR ( Amer) 10 L 10 L Est GFR (Non-Af Amer) 8 L 8 L Glucose 171 H 231 H Calcium 7.8 L 7.4 L Magnesium 1.5 L 1.5 L Assessment & Plan - Diagnosis (1) Clostridium difficile colitis Is this a current diagnosis for this admission?: Yes Plan: On Flagyl and vancomycin p.o. and seems to be improving well. (2) UTI (urinary tract infection) Qualifiers: Urinary tract infection type: acute cystitis Hematuria presence: with hematuria Qualified Code(s): N30.01 - Acute cystitis with hematuria Is this a current diagnosis for this admission?: Yes Plan: On antibiotics and clinically improving (3) End stage renal disease on dialysis Is this a current diagnosis for this admission?: Yes Plan: Continue on peritoneal dialysis. Orders were modified based on blood pressure and discussed with the treating nurse. He is on CAPD every 6 hours. (4) Anemia in chronic kidney disease Is this a current diagnosis for this admission?: Yes Plan: On EPO. (5) Diabetes mellitus type 2 in obese Plan: Advised tight control. (6) Hypokalemia Is this a current diagnosis for this admission?: Yes Plan: On replacements.
[2018-06-11] MEDS: MAGNESIUM SULFATE/D5W 1 GM/100 ML RTUPB IV SCH ×2 (15:23→16:52)
[2018-06-11] MEDS: MAGNESIUM SULFATE/D5W 1 GM/100 ML RTUPB IV ONE ×2 (16:50→17:04)
[2018-06-11] MEDS: MAGNESIUM OXIDE 400 MG TABLET PO SCH (17:21)
[2018-06-11] MEDS: ATORVASTATIN CALCIUM 80 MG TABLET PO SCH (22:08)
[2018-06-11] MEDS: DOXAZOSIN MESYLATE 2 MG TABLET PO SCH (22:08)
[2018-06-11] MEDS: INSULIN GLARGINE,HUM.REC.ANLOG 300 UNIT/3 ML INSULN.PEN SUBCUT SCH (22:10)
--- NOTE | 2018-06-11 22:25 | PDOC PROGRESS REPORT ---
Subjective Progress Note for:: 06/11/18 Subjective:: This is a 67 yr old female with ESRD on peritoneal dialysis who was admitted for C diff colitis and UTI. The patient endorses diarrhea today. Will continue PO vancomycin. Denies abdominal pain, only mild cramping. Can discharge patient once diarrhea stops. For now, he will remain inpatient. Reason For Visit: UTI ESRD C PD DIABETES Physical Exam Vital Signs: Temp Pulse Resp BP Pulse Ox 98.1 F 90 18 139/60 H 94 06/11/18 20:28 06/11/18 21:27 06/11/18 15:54 06/11/18 21:27 06/11/18 20:28 Intake & Output 06/10/18 06/11/18 06/12/18 06:59 06:59 06:59 Intake Total 60821 92195 7750 Output Total 5400 8900 6400 Balance 4750 1553 1350 Weight 97.8 kg 98.2 kg 100.7 kg General appearance: PRESENT: no acute distress Eye exam: PRESENT: PERRLA Mouth exam: PRESENT: tongue midline Neck exam: PRESENT: full ROM Respiratory exam: PRESENT: clear to auscultation yair, symmetrical, unlabored Cardiovascular exam: PRESENT: RRR Pulses: PRESENT: normal radial pulses GI/Abdominal exam: PRESENT: soft, tenderness. ABSENT: distended Rectal exam: PRESENT: deferred Musculoskeletal exam: PRESENT: deformity. ABSENT: full ROM Neurological exam: PRESENT: alert, awake, oriented to person, oriented to place, oriented to time, oriented to situation Psychiatric exam: PRESENT: appropriate affect Skin exam: PRESENT: dry, intact, normal color Results Laboratory Results: 06/10/18 04:07 06/11/18 04:35 06/11/18 04:35 Sodium 138.2 Potassium 3.3 L Chloride 102 Carbon Dioxide 25 Anion Gap 11 BUN 38 H Creatinine 6.61 H Est GFR ( Amer) 10 L Est GFR (Non-Af Amer) 8 L Glucose 231 H Calcium 7.4 L Magnesium 1.5 L Assessment and Plan - Diagnosis (1) UTI (urinary tract infection) Qualifiers: Urinary tract infection type: acute cystitis Hematuria presence: with hematuria Qualified Code(s): N30.01 - Acute cystitis with hematuria Is this a current diagnosis for this admission?: Yes Plan: Was on Rocephin Switch to Bactrim DS PO per ID recommendations (2) Clostridium difficile colitis Is this a current diagnosis for this admission?: Yes Plan: Continue Flagyl, vancomycin PO, and probiotics. (3) End stage renal disease on dialysis Is this a current diagnosis for this admission?: Yes Plan: On Peritoneal dialysis Nephrology consulted - Time Time Spent with patient: 15-24 minutes Medications reviewed and adjusted accordingly: Yes Anticipated discharge: Home - Inpatient Certification Based on my medical assessment, after consideration of the patient's comorbidities, presenting symptoms, or acuity I expect that the services needed warrant INPATIENT care.: Yes I certify that my determination is in accordance with my understanding of Medicare's requirements for reasonable and necessary INPATIENT services [42 CFR 412.3e].: Yes Medical Necessity: Significant Comorbidiites Make Outpatient Treatment Too Risky, Need For IV Fluids
[2018-06-11] MEDS ORDERED: SULFAMETHOXAZOLE/TRIMETHOPRIM 800-160 MG TABLET PO ONE (22:30)
[2018-06-12] MEDS: IPRATROPIUM/ALBUTEROL 0.5-2.5 MG/3 ML AMPUL NEB PRN ×2 (00:01→12:43)
[2018-06-12] MEDS: HEPARIN SOD (PORCINE) 5,000 UNIT/ML 1 ML SYRINGE SUBCUT SCH ×2 (05:05→17:20)
[2018-06-12] MEDS: PANTOPRAZOLE SODIUM 40 MG TABLET.DR PO SCH (05:06)
[2018-06-12] MEDS: VANCOMYCIN HCL INJ 500 MG VIAL PO SCH ×2 (05:06→11:53)
[2018-06-12] MEDS: INSULIN LISPRO 100 UNIT/ML 3 ML VIAL SUBCUT SCH ×3 (07:39→17:20)
[2018-06-12 09:37] LABS: ANION GAP 10 (5-19); BLOOD UREA NITROGEN 37 mg/dL (7-20); CALCIUM 7.5 mg/dL (8.4-10.2); CARBON DIOXIDE 26 mmol/L (22-30); CHLORIDE 102 mmol/L (98-107); GLUCOSE 189 mg/dL (75-110); POTASSIUM 3.2 mmol/L (3.6-5.0); SODIUM 137.6 mmol/L (137-145)
[2018-06-12] MEDS ORDERED: SULFAMETHOXAZOLE/TRIMETHOPRIM 800-160 MG TABLET PO SCH (10:00)
[2018-06-12] MEDS: LACTULOSE SYRUP 20 GM/30 ML UDCUP PO SCH (10:36)
[2018-06-12] MEDS: DOCUSATE SODIUM 100 MG CAPSULE PO SCH (10:37)
[2018-06-12] MEDS: METRONIDAZOLE 500 MG TABLET PO SCH (10:37)
[2018-06-12] MEDS: ASPIRIN 81 MG TABLET, ENT COATED PO SCH (10:37)
[2018-06-12] MEDS: ISOSORBIDE MONONITRATE 30 MG TAB.ER.24H PO SCH (10:37)
[2018-06-12] MEDS: CARVEDILOL 12.5 MG TABLET PO SCH (10:37)
[2018-06-12] MEDS: FOLIC ACID/VITAMIN B COMP W-C CAPSULE PO SCH (10:37)
[2018-06-12] MEDS: ESCITALOPRAM OXALATE 10 MG TABLET PO SCH (10:39)
[2018-06-12] MEDS: LACTOBACILLUS ACIDOPHILUS 250 MG TAB PO SCH (10:39)
[2018-06-12] MEDS: GENTAMICIN SULFATE 0.1% OINTMENT 15 GM TP SCH (10:39)
[2018-06-12] MEDS: POTASSIUM CHLORIDE 10 MEQ CAPSULE.ER PO SCH (10:39)
[2018-06-12] MEDS: FINASTERIDE 5 MG TABLET PO SCH (10:39)
[2018-06-12] MEDS: MAGNESIUM OXIDE 400 MG TABLET PO SCH (10:39)
[2018-06-12] MEDS: FLUCONAZOLE 100 MG TABLET PO SCH (10:40)
[2018-06-12 14:57] VITALS: BP 155/61
--- NOTE | 2018-06-24 11:49 | PDOC DISCHARGE SUMMARY ---
General - Admit/Disc Date/PCP Admission Date/Primary Care Provider: 06/08/18 01:46 K Emma GANDHI MD Discharge Date: 06/12/18 - Discharge Diagnosis (1) UTI (urinary tract infection) Is this a current diagnosis for this admission?: Yes (2) Clostridium difficile colitis Is this a current diagnosis for this admission?: Yes (3) End stage renal disease on dialysis Is this a current diagnosis for this admission?: Yes - Additional Information Resuscitation Status: Full Code Discharge Diet: As Tolerated Discharge Activity: Activity As Tolerated Prescriptions: Vancomycin HCl [Vancocin HCl] 125 mg PO Q6 #76 capsule Home Medications: Aspirin [Ecotrin 81 mg EC Tablet] 81 mg PO DAILY 04/23/18 Atorvastatin Calcium [Lipitor 80 mg Tablet] 80 mg PO QHS 04/23/18 Carvedilol [Coreg 12.5 mg Tablet] 12.5 mg PO Q12 04/23/18 Docusate Sodium [Colace 100 mg Capsule] 200 mg PO BID 04/23/18 Escitalopram Oxalate [Lexapro 10 mg Tablet] 10 mg PO DAILY 04/23/18 Finasteride [Proscar 5 mg Tablet] 5 mg PO DAILY 04/23/18 Folic Acid/Vitamin B Comp W-C [Renal Multivitamin Tablet] 1 tab PO DAILY 04/23/18 Insulin Aspart [Novolog Insulin (Aspart) 100 unit/mL] 0 unit SUBCUT .SLD SCALE 04/23/18 Insulin Glargine,Hum.rec.anlog [Lantus (Pyxis) Insulin 100 Unit/1 ml 10 ml] 80 unit SUBCUT QHS 04/23/18 Ipratropium/Albuterol Sulfate [Combivent Respimat 4 gm Mdi] 1 puff IH DAILY 04/23/18 Isosorbide Mononitrate [Imdur 30 mg Tablet.er] 30 mg PO DAILY 04/23/18 Lactulose [Cephulac Syrup 20 gm/30 ml Udcup] 20 gm PO DAILYP PRN 04/23/18 Omeprazole 40 mg PO DAILY 04/23/18 Terazosin HCl [Hytrin] 2 mg PO QHS 04/23/18 Magnesium Oxide [Mag-Ox 400 mg Tablet] 400 mg PO BID tablet 06/12/18 Vancomycin HCl [Vancocin HCl] 125 mg PO Q6 #76 capsule 06/12/18 History of Present Illness History of Present Illness: CELIO WAGNER is a 67 year old male with a past medical history of end-stage renal failure on peritoneal dialysis, congestive heart failure, hypertension, COPD, insulin-dependent diabetes, and BPH. He presents with 48 hours of abdominal and pelvic pain crampy in nature associated with oliguria prompting evaluation emergency room where he is found to have leukocytosis and pyuria. Nephrology consulted for PD fluid management. He is started on empiric antibiotics and referred to the hospitalist for admission. Patient denies recent antibiotic use. Hospital Course Hospital Course: This is a 67 yr old male with ESRD on peritoneal dialysis who was admitted for C diff colitis and UTI. The patient was started on PO vancomycin for c.diff colitis. He was initially treated with IV ceftriaxone for his UTI and transitioned to Bactrim DS. By hospital day #4 the patient reported having formed stool, no longer watery diarrhea. He denies UTI symptoms (frequency, urgency, dysuria), but there was a moderate amount of Leuk esterase on his initial UA, as well as >182 WBC. The patient was sent home on the following regimen of oral vancomycin for his c.diff colitis: 125 mg vancomycin by mouth 4 times a day for 10 days Followed by 125 mg vancomycin by mouth 2 times per day for 7 days Followed by 125 mg vancomycin by mouth once per day for 7 days Followed by 125 mg vancomycin by mouth once every other day for 4 weeks Additionally, he was sent home with a prescription for Bactrim DS to complete an tibiotic treatment of his UTI. Physical Exam Vital Signs: Temp Pulse Resp BP Pulse Ox 97.4 F 65 16 155/61 H 99 06/12/18 14:43 06/12/18 14:43 06/12/18 14:43 06/12/18 14:43 06/12/18 14:43 General appearance: PRESENT: no acute distress, obese, well-developed, well- nourished Head exam: PRESENT: atraumatic, normocephalic Eye exam: PRESENT: conjunctiva pink, EOMI, PERRLA. ABSENT: scleral icterus Ear exam: PRESENT: normal external ear exam Mouth exam: PRESENT: moist, tongue midline Neck exam: ABSENT: carotid bruit, JVD, lymphadenopathy, thyromegaly Respiratory exam: PRESENT: clear to auscultation yair. ABSENT: rales, rhonchi, wheezes Cardiovascular exam: PRESENT: RRR. ABSENT: diastolic murmur, rubs, systolic murmur Pulses: PRESENT: normal dorsalis pedis pul Vascular exam: PRESENT: normal capillary refill GI/Abdominal exam: PRESENT: normal bowel sounds, soft. ABSENT: distended, guarding, mass, organolmegaly, rebound, tenderness Rectal exam: PRESENT: deferred Extremities exam: PRESENT: full ROM. ABSENT: calf tenderness, clubbing, pedal edema Neurological exam: PRESENT: alert, awake, oriented to person, oriented to place, oriented to time, oriented to situation. ABSENT: motor sensory deficit Psychiatric exam: PRESENT: appropriate affect, normal mood Skin exam: PRESENT: dry, intact, warm. ABSENT: cyanosis, rash Results Laboratory Results: 06/10/18 04:07 06/12/18 09:05 Status: Imported from PACS Qualifiers - * PATIENT BEING DISCHARGED WITH ANY OF THE FOLLOWING DIAGNOSIS: No
== END 2018-06-12 16:56 | disposition home or self-care (01) | DRG 371 ==
LOC: ER 18:54 → EH 06-08 01:46 → 4N 06-08 02:45
PROVIDERS: ADMIT Internal Medicine; ATTEND Internal Medicine
PROC: 3E1M39Z Irrigation of Peritoneal Cavity using Dialysate, Percutaneous Approach (ICD-10-PCS; principal; 2018-06-08)
DX: A04.72 Enterocolitis due to Clostridium difficile, not specified as recurrent (principal); N18.6 End stage renal disease; N30.01 Acute cystitis with hematuria; I13.2 Hypertensive heart and chronic kidney disease with heart failure and with stage 5 chronic kidney disease, or end stage renal disease; I50.32 Chronic diastolic (congestive) heart failure; E87.6 Hypokalemia; D63.1 Anemia in chronic kidney disease; E11.22 Type 2 diabetes mellitus with diabetic chronic kidney disease; N40.0 Benign prostatic hyperplasia without lower urinary tract symptoms; E11.319 Type 2 diabetes mellitus with unspecified diabetic retinopathy without macular edema; E11.43 Type 2 diabetes mellitus with diabetic autonomic (poly)neuropathy; E86.0 Dehydration; Z99.2 Dependence on renal dialysis; I25.10 Atherosclerotic heart disease of native coronary artery without angina pectoris; I25.2 Old myocardial infarction; Z95.5 Presence of coronary angioplasty implant and graft; E78.5 Hyperlipidemia, unspecified; J44.9 Chronic obstructive pulmonary disease, unspecified; F32.9 Major depressive disorder, single episode, unspecified; Z90.49 Acquired absence of other specified parts of digestive tract; Z83.3 Family history of diabetes mellitus; Z82.49 Family history of ischemic heart disease and other diseases of the circulatory system; Z79.82 Long term (current) use of aspirin; Z79.4 Long term (current) use of insulin; Z79.899 Other long term (current) drug therapy
CPT/HCPCS: 36415; 51702; 80048; 80053; 80069; 81001; 82803; 82962; 83605; 83735; 85025; 87040; 87045; 87070; 87075; 87086; 87205; 87493; 89050; 90945; 99284; C1758; J0696; J1644; J1815; J1885; J2270; J3370; J3475; J3480; J3490; J7030; J7620; Q4081

== ENCOUNTER 2018-08-07 22:20 | Inpatient (IN) | payer OTHER, MEDICARE ==
[2018-08-07 22:57] LABS: ABSOLUTE BASOPHILS # (AUTO) 0.1 10^3/uL (0.0-0.2); ABSOLUTE EOSINOPHILS # (AUTO) 0.2 10^3/uL (0.0-0.6); ABSOLUTE LYMPHOCYTES (AUTO) 1.3 10^3/uL (0.5-4.7); ABSOLUTE MONOCYTES (AUTO) 1.2 10^3/uL (0.1-1.4); ABSOLUTE NEUT (AUTO) 4.4 10^3/uL (1.7-8.2); BASOPHILS % (AUTO) 1.5 % (0-2); EOSINOPHILS % (AUTO) 2.6 % (0-6); HEMATOCRIT 36.3 % (37.9-51.0); HEMOGLOBIN 11.9 g/dL (13.5-17.0); LYMPHOCYTES % (AUTO) 17.6 % (13-45); MEAN CORPUSCULAR HEMOGLOBIN 31.5 pg (27.0-33.4); MEAN CORPUSCULAR HGB CONC 32.8 g/dL (32.0-36.0); MEAN CORPUSCULAR VOLUME 96 fl (80-97); MONOCYTES % (AUTO) 17.1 % (3-13); PLATELET COUNT 266 10^3/uL (150-450); RED BLOOD COUNT 3.78 10^6/uL (4.35-5.55); SEGMENTED NEUTROPHILS % (AUTO) 61.2 % (42-78); TOTAL CELLS COUNTED % (AUTO) 100 %; WHITE BLOOD COUNT 7.2 10^3/uL (4.0-10.5)
[2018-08-07 23:16] LABS: ALANINE AMINOTRANSFERASE 26 U/L (21-72); ALBUMIN 3.5 g/dL (3.5-5.0); ALKALINE PHOSPHATASE 88 U/L (38-126); ANION GAP 15 (5-19); ASPARTATE AMINO TRANSFERASE 18 U/L (17-59); BILIRUBIN,DIRECT 0.5 mg/dL (0.0-0.4); BILIRUBIN,TOTAL 0.5 mg/dL (0.2-1.3); BLOOD UREA NITROGEN 36 mg/dL (7-20); CALCIUM 8.5 mg/dL (8.4-10.2); CARBON DIOXIDE 30 mmol/L (22-30); CHLORIDE 96 mmol/L (98-107); CREATINE KINASE 83 U/L (55-170); GLUCOSE 128 mg/dL (75-110); POTASSIUM 4.4 mmol/L (3.6-5.0); TOTAL PROTEIN 7.1 g/dL (6.3-8.2)
[2018-08-07] MEDS ORDERED: IPRATROPIUM/ALBUTEROL 0.5-2.5 MG/3 ML AMPUL NEB ONE (23:19)
--- NOTE | 2018-08-07 23:21 | ER Document Report ---
ED General - General Chief Complaint: Breathing Difficulty Stated Complaint: DIFFICULTY BREATHING Time Seen by Provider: 08/07/18 22:48 Mode of Arrival: Wheelchair Information source: Patient, Relative, [facility] Records Notes: 67-year-old male with congestive heart failure, hyperlipidemia, COPD, end-stage renal disease on peritoneal dialysis, type 2 diabetes presents with complaint of cough, shortness of breath, fatigue. Patient states shortness of breath has been ongoing for several days but worsened today. He reports a productive cough with clear sputum. Patient is on continuous oxygen 3 L but has had 2 bump this up to 5 L. Patient has undergone breathing treatments at home without relief. Family reports that the patient has had a decrease in appetite, sweats and intermittently high glucose readings. Patient denies fever, chills, chest pain, abdominal pain. TRAVEL OUTSIDE OF THE [place] IN LAST 30 DAYS: No - HPI Onset: Other Onset/Duration: Gradual, Persistent, Worse Quality of pain: No pain Associated symptoms: Productive cough, Shortness of breath, Sweating, Weakness Exacerbated by: Coughing Relieved by: Denies Similar symptoms previously: Yes Recently seen / treated by doctor: Yes - Related Data Allergies/Adverse Reactions: No Known Allergies Allergy (Verified 07/22/18 12:25) Past Medical History - General Information source: Patient, Relative, [facility] Records - Social History Smoking Status: Former Smoker Frequency of alcohol use: None Drug Abuse: None Lives with: Family Family History: CAD, DM, Hypertension - Past Medical History Cardiac Medical History: Reports: Hx Congestive Heart Failure, Hx Coronary Artery Disease, Hx Heart Attack - Twice with stents placed, Hx Hypercholesterolemia, Hx Hypertension Denies: Hx Atrial Fibrillation, Hx DVT, Hx Pulmonary Embolism Pulmonary Medical History: Reports: Hx COPD, Hx Respiratory Failure Denies: Hx Asthma Neurological Medical History: Denies: Hx Seizures Endocrine Medical History: Reports: Hx Diabetes Mellitus Type 2. Denies: Hx Diabetes Mellitus Type 1, Hx Hyperthyroidism, Hx Hypothyroidism Renal/ Medical History: Reports: Hx Benign Prostatic Hyperplasia, Hx End Stage Renal Disease, Hx Peritoneal Dialysis GI Medical History: Reports: Hx Diverticulitis. Denies: Hx Cirrhosis, Hx Hepatitis Musculoskeletal Medical History: Denies Hx Arthritis, Denies Hx Gout Skin Medical History: Denies Hx Eczema, Denies Hx Psoriasis Psychiatric Medical History: Reports: Hx Depression Infectious Medical History: Reports: Hx C-Diff. Denies: Hx Hepatitis Past Surgical History: Reports: Other - Small bowel resection for diverticulitis; adhesion lysis April 2017 Review of Systems - Review of Systems Constitutional: Chills, Malaise EENT: denies: Difficulty swallowing Cardiovascular: denies: Chest pain, Palpitations, Dizziness Respiratory: Cough, Short of breath, Sputum, Wheezing Gastrointestinal: denies: Abdominal pain Genitourinary: denies: Dysuria, Flank pain Male Genitourinary: No symptoms reported Musculoskeletal: No symptoms reported. denies: Leg swelling Skin: denies: Rash Hematologic/Lymphatic: No symptoms reported Neurological/Psychological: denies: Headaches -: Yes All other systems reviewed and negative Physical Exam - Vital signs Vitals: Temp Pulse Resp BP Pulse Ox 97.8 F 82 24 H 145/55 H 93 08/07/18 22:30 08/07/18 22:30 08/07/18 22:30 08/07/18 22:30 08/07/18 22:30 - Notes Notes: PHYSICAL EXAMINATION: GENERAL: Ill-appearing, moderate respiratory distress HEAD: Atraumatic, normocephalic. EYES: Pupils equal round and reactive to light, extraocular movements intact, sclera anicteric, conjunctiva are normal. ENT: Nares patent, oropharynx clear without exudates. Dry mucous membranes. NECK: Normal range of motion, supple without lymphadenopathy LUNGS: Diminished breath sounds in all lung fraser. On nasal cannula. Tachypneic HEART: Regular rate and rhythm without murmurs ABDOMEN: Soft, nontender, nondistended abdomen. No guarding, no rebound. No masses appreciated. Musculoskeletal: Normal range of motion, no pitting or edema. No cyanosis. NEUROLOGICAL: Cranial nerves grossly intact. Normal speech, normal gait. No rmal sensory, motor exams PSYCH: Normal mood, normal affect. SKIN: Pale Course - Re-evaluation Re-evalutation: 08/08/18 02:55 Laboratory 08/07/18 08/07/18 08/07/18 22:45 22:45 22:45 WBC 7.2 RBC 3.78 L Hgb 11.9 L Hct 36.3 L MCV 96 MCH 31.5 MCHC 32.8 RDW 16.0 H Plt Count 266 Seg Neutrophils % 61.2 Lymphocytes % 17.6 Monocytes % 17.1 H Eosinophils % 2.6 Basophils % 1.5 Absolute Neutrophils 4.4 Absolute Lymphocytes 1.3 Absolute Monocytes 1.2 Absolute Eosinophils 0.2 Absolute Basophils 0.1 VBG pH VBG pCO2 VBG HCO3 VBG Base Excess Sodium 141.0 Potassium 4.4 Chloride 96 L Carbon Dioxide 30 Anion Gap 15 BUN 36 H Creatinine 8.36 H Est GFR ( Amer) 8 L Est GFR (Non-Af Amer) 6 L Glucose 128 H Calcium 8.5 Total Bilirubin 0.5 Direct Bilirubin 0.5 H Neonat Total Bilirubin Not Reportable Neonat Direct Bilirubin Not Reportable Neonat Indirect Bili Not Reportable AST 18 ALT 26 Alkaline Phosphatase 88 Creatine Kinase 83 CK-MB (CK-2) 4.48 Troponin I 0.081 NT-Pro-B Natriuret Pep Total Protein 7.1 Albumin 3.5 08/07/18 08/08/18 22:45 00:08 WBC RBC Hgb Hct MCV MCH MCHC RDW Plt Count Seg Neutrophils % Lymphocytes % Monocytes % Eosinophils % Basophils % Absolute Neutrophils Absolute Lymphocytes Absolute Monocytes Absolute Eosinophils Absolute Basophils VBG pH 7.28 L VBG pCO2 72.0 H* VBG HCO3 33.3 H VBG Base Excess 4.6 Sodium Potassium Chloride Carbon Dioxide Anion Gap BUN Creatinine Est GFR ( Amer) Est GFR (Non-Af Amer) Glucose Calcium Total Bilirubin Direct Bilirubin Neonat Total Bilirubin Neonat Direct Bilirubin Neonat Indirect Bili AST ALT Alkaline Phosphatase Creatine Kinase CK-MB (CK-2) Troponin I NT-Pro-B Natriuret Pep 73603 H Total Protein Albumin Chest X-Ray 08/07/18 22:45 IMPRESSION: Atelectasis or infiltrate in the right lung base with right pleural effusion. Findings may reflect pneumonia. Clinical correlation recommended Temp Pulse Resp BP Pulse Ox 97.8 F 82 26 H 110/51 L 98 08/07/18 22:30 08/07/18 22:30 08/08/18 02:00 08/08/18 00:55 08/08/18 02:00 67-year-old male with CHF, COPD presents with complaint of worsening shortness of breath, productive cough. Patient is normally on 3 L nasal cannula and reports needing to use 5 L. Patient states he feels that he has pneumonia. Patient did give himself multiple breathing treatments without improvement of his shortness of breath. CMP is consistent with end-stage renal disease. Venous blood gas shows CO2 retention. proBNP is 34,000. Chest x-ray was obtained and concerning for questionable infiltrate with associated pleural effusion. Patient was placed on BiPAP and received breathing treatments, Solu- Medrol. Reevaluation patient is breathing more comfortably on BiPAP. Patient agreeable to admission. I spoke to Dr. Berg who has agreed to admit the patient. 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 - Vital Signs Vital signs: Temp Pulse Resp BP Pulse Ox 97.8 F 82 26 H 110/51 L 98 08/07/18 22:30 08/07/18 22:30 08/08/18 02:00 08/08/18 00:55 08/08/18 02:00 - Laboratory Result Diagrams: 08/07/18 22:45 08/07/18 22:45 Laboratory results interpreted by me: 08/07/18 08/07/18 08/07/18 22:45 22:45 22:45 RBC 3.78 L Hgb 11.9 L Hct 36.3 L RDW 16.0 H Monocytes % 17.1 H VBG pH VBG pCO2 VBG HCO3 Chloride 96 L BUN 36 H Creatinine 8.36 H Est GFR ( Amer) 8 L Est GFR (Non-Af Amer) 6 L Glucose 128 H Direct Bilirubin 0.5 H NT-Pro-B Natriuret Pep 01331 H 08/08/18 00:08 RBC Hgb Hct RDW Monocytes % VBG pH 7.28 L VBG pCO2 72.0 H* VBG HCO3 33.3 H Chloride BUN Creatinine Est GFR ( Amer) Est GFR (Non-Af Amer) Glucose Direct Bilirubin NT-Pro-B Natriuret Pep - Diagnostic Test Radiology reviewed: Image reviewed, Reports reviewed - EKG Interpretation by Me EKG shows normal: Sinus rhythm Rate: Normal Rhythm: PVC's When compared to previous EKG there are: No significant change Critical Care Note - Critical Care Note Total time excluding time spent on procedures (mins): 35 - Minutes of critical care time spent in direct contact evaluating and reevaluating the patient, treating symptoms, reviewing labs and studies and speaking with family and consultants excluding any procedures Discharge - Discharge Clinical Impression: Respiratory distress, COPD exacerbation, ESRD (end stage renal disease) Condition: Fair Disposition: ADMITTED INPATIENT Admitting Provider: Morena (Hospitalist) Unit Admitted: Medical Floor
--- NOTE | 2018-08-07 23:25 | RADIOLOGY REPORT (SQ) ---
EXAM DESCRIPTION: XR CHEST 1 VIEW COMPLETED DATE/TME: 08/07/2018 22:45 CLINICAL HISTORY: 67 years Male difficulty breathing COMPARISON: None. FINDINGS: The cardiomediastinal silhouette appears unremarkable. Atelectasis versus infiltrate in the right lung base with right pleural effusion. IMPRESSION: Atelectasis or infiltrate in the right lung base with right pleural effusion. Findings may reflect pneumonia. Clinical correlation recommended
[2018-08-07 23:26] LABS: CREATINE KINASE MB 4.48 ng/mL (<4.55)
[2018-08-07 23:29] LABS: TROPONIN I 0.081 ng/mL
[2018-08-08] MEDS ORDERED: CEFTRIAXONE 1 GM/D5W RTU 1 GM/50 ML RTUPB IV ONE (00:11)
[2018-08-08 00:23] LABS: VENOUS BLOOD BASE EXCESS 4.6 mmol/L; VENOUS BLOOD HCO3 33.3 mmol/L (20-32); VENOUS BLOOD PH 7.28 (7.30-7.42)
[2018-08-08] MEDS ORDERED: METHYLPREDNISOLONE INJ 125 MG/2 ML SDV IV ONE ×2 (01:14→02:32)
[2018-08-08] MEDS ORDERED: MAG HYDROX/AL HYDROX/SIMETH SUSP 30 ML UDCUP PO PRN (02:23)
[2018-08-08] MEDS ORDERED: TEMAZEPAM 15 MG CAPSULE PO PRN (02:23)
[2018-08-08] MEDS ORDERED: DEXTROSE 40% GEL 15 GM TUBE PO PRN ×2 (02:31)
[2018-08-08] MEDS ORDERED: GLUCAGON,HUMAN RECOMB 1 MG INJ IM PRN (02:31)
[2018-08-08] MEDS ORDERED: DEXTROSE 50%-WATER 25 GM/50 ML DISP.SYRIN IV PRN ×2 (02:31)
[2018-08-08] MEDS ORDERED: LEVALBUTEROL HCL NEB 0.63 MG/3 ML AMPUL NEB PRN (02:32)
[2018-08-08] MEDS ORDERED: ACETAMINOPHEN 325 MG TABLET PO PRN ×2 (02:32→10:32)
[2018-08-08] MEDS ORDERED: MORPHINE SULFATE 10 MG/ML INJ IV PRN (02:32)
[2018-08-08] MEDS ORDERED: HYDRALAZINE HCL INJ/PF 20 MG/1 ML SDV IV PRN (02:32)
[2018-08-08] MEDS ORDERED: LACTULOSE SYRUP 20 GM/30 ML UDCUP PO PRN (02:35)
--- NOTE | 2018-08-08 04:46 | PDOC H&P ---
History of Present Illness Admission Date/PCP: 08/08/2018 [facility] Patient complains of: Dyspnea History of Present Illness: CELIO WAGNER is a 67 year old male who presented to the emergency room complaining of dyspnea. Patient admits for the last several days he has experienced gradually worsening dyspnea accompanied by a cough productive of clear sputum, progressively worsening fatigue, generalized weakness and decreased appetite. He further admits that his symptoms greatly escalated on 08/07/2018 becoming severe and necessitating a trip to the emergency room. He tried treating himself at home by increasing his O2 from 3 L/min to 5 or 6 L/min and using additional breathing treatments all without substantial relief. He has not identified any aggravating or ameliorating factors for his dyspnea but has numerous prior similar episodes related to his COPD and CHF. In the emergency room he was found to be significantly hypoxic and hypercapnic requiring treatment with BiPAP. His CBC was normal. His chest x-ray revealed a right pleural effusion. His BNP was elevated. With these findings the patient was admitted to hospital for further evaluation treatment. Past Medical History Cardiac Medical History: Reports: Congestive Heart Failure, Coronary Artery Disease, Myocardial Infarction - Twice with stents placed, Hyperlipidema, Hyper tension Denies: Atrial Fibrillation, DVT, Pulmonary Embolism Pulmonary Medical History: Reports: Chronic Obstructive Pulmonary Disease (COPD), Respiratory Failure Denies: Asthma EENT Medical History: Denies: Cataracts, Ears - Hearing aids Neurological Medical History: Denies: Hemorrhagic CVA, Ischemic CVA, Seizures Endocrine Medical History: Reports: Diabetes Mellitus Type 2, Obesity Denies: Diabetes Mellitus Type 1, Hyperthyroidism, Hypothyroidism Renal/ Medical History: Reports: End Stage Renal Disease Denies: Nephrolithiasis Malignancy Medical History: Reports: None GI Medical History: Reports: Diverticulitis Denies: Cirrhosis, Hepatitis Musculoskeltal Medical History: Denies: Arthritis, Gout Skin Medical History: Denies: Eczema, Psoriasis Psychiatric Medical History: Reports: Depression, Tobacco Dependency Denies: Alcohol Dependency, Substance Abuse Traumatic Medical History: Reports: None Hematology: Reports: Anemia Denies: Bleeding Tendencies Infectious Medical History: Reports: Clostridium Difficile Past Surgical History Past Surgical History: Reports: Cardiac Catheterization, Coronary Stent - X2, Other - Small bowel resection; adhesion lysis; peritoneal dialysis access Social History Information Source: Patient Lives with: Family Smoking Status: Former Smoker Frequency of Alcohol Use: Rare Hx Recreational Drug Use: No Drugs: None Hx Prescription Drug Abuse: No - Advance Directive Resuscitation Status: Full Code Surrogate healthcare decision maker:: Family History Family History: CAD, DM, Hypertension Parental Family History Reviewed: Yes Children Family History Reviewed: No Sibling(s) Family History Reviewed.: Yes Medication/Allergy Home Medications: Aspirin [Ecotrin 81 mg EC Tablet] 81 mg PO DAILY 04/23/18 Atorvastatin Calcium [Lipitor 80 mg Tablet] 80 mg PO QHS 04/23/18 Carvedilol [Coreg 12.5 mg Tablet] 12.5 mg PO Q12 04/23/18 Docusate Sodium [Colace 100 mg Capsule] 200 mg PO BID 04/23/18 Escitalopram Oxalate [Lexapro 10 mg Tablet] 10 mg PO DAILY 04/23/18 Finasteride [Proscar 5 mg Tablet] 5 mg PO DAILY 04/23/18 Folic Acid/Vitamin B Comp W-C [Renal Multivitamin Tablet] 1 tab PO DAILY 04/23/18 Insulin Aspart [Novolog Insulin (Aspart) 100 unit/mL] 0 unit SUBCUT .SLD SCALE 04/23/18 Insulin Glargine,Hum.rec.anlog [Lantus (Pyxis) Insulin 100 Unit/1 ml 10 ml] 80 unit SUBCUT QHS 04/23/18 Ipratropium/Albuterol Sulfate [Combivent Respimat 4 gm Mdi] 1 puff IH DAILY 04/23/18 Isosorbide Mononitrate [Imdur 30 mg Tablet.er] 30 mg PO DAILY 04/23/18 Lactulose [Cephulac Syrup 20 gm/30 ml Udcup] 20 gm PO DAILYP PRN 04/23/18 Omeprazole 40 mg PO DAILY 04/23/18 Terazosin HCl [Hytrin] 2 mg PO QHS 04/23/18 Magnesium Oxide [Mag-Ox 400 mg Tablet] 400 mg PO BID tablet 06/12/18 Vancomycin HCl [Vancocin HCl] 125 mg PO Q6 #76 capsule 06/12/18 Sulfamethoxazole/Trimethoprim [Bactrim Ds Tablet] 1 each PO BID #14 tablet 07/22/18 Allergies/Adverse Reactions: No Known Allergies Allergy (Verified 07/22/18 12:25) Review of Systems Constitutional: PRESENT: anorexia, fatigue, weakness. ABSENT: chills, fever(s) Eyes: ABSENT: visual disturbances, other - Ocular pain Ears: ABSENT: hearing changes, other - Ear pain Nose, Mouth, and Throat: ABSENT: mouth pain, sore throat Cardiovascular: PRESENT: dyspnea on exertion. ABSENT: chest pain, edema, orthropnea, palpitations Respiratory: PRESENT: cough, dyspnea, sputum - Clear. ABSENT: hemoptysis Gastrointestinal: ABSENT: abdominal pain, constipation, diarrhea, nausea, vomiting Genitourinary: PRESENT: other - On regular peritoneal dialysis. ABSENT: dysuri a, hematuria Musculoskeletal: ABSENT: back pain, joint swelling, muscle weakness Integumentary: ABSENT: pruritus, rash Neurological: ABSENT: confusion, convulsions, focal weakness, memory loss, syncope Psychiatric: ABSENT: anxiety, depression Endocrine: ABSENT: cold intolerance, heat intolerance Hematologic/Lymphatic: ABSENT: easy bleeding, easy bruising Physical Exam Vital Signs: Temp Pulse Resp BP Pulse Ox 97.8 F 82 24 H 145/55 H 98 08/07/18 22:30 08/07/18 22:30 08/07/18 22:30 08/07/18 22:30 08/07/18 22:45 Intake & Output 08/06/18 08/07/18 08/08/18 23:59 23:59 23:59 Weight 97.522 kg General appearance: PRESENT: no acute distress, cooperative, other - On BiPAP Head exam: PRESENT: atraumatic, normocephalic Eye exam: ABSENT: conjunctival injection, scleral icterus Ear exam: PRESENT: normal external ear exam. ABSENT: bleeding, drainage Mouth exam: PRESENT: dry mucosa, neck supple Neck exam: ABSENT: JVD, thyromegaly, tracheal deviation Respiratory exam: PRESENT: decreased breath sounds - Markedly decreased breath sounds in all fraser with poor air movement, prolonged expiratory phas - Markedly prolonged expiratory phase noted in all fraser, symmetrical, wheezes - Expiratory wheezes present in all fraser Cardiovascular exam: PRESENT: RRR. ABSENT: clicks, gallop, rubs Pulses: PRESENT: normal radial pulses, normal dorsalis pedis pul Vascular exam: PRESENT: normal capillary refill. ABSENT: pallor GI/Abdominal exam: PRESENT: normal bowel sounds, soft Rectal exam: PRESENT: deferred Extremities exam: ABSENT: joint swelling, pedal edema Musculoskeletal exam: ABSENT: deformity, dislocation, tenderness Neurological exam: PRESENT: alert, oriented to person, oriented to place, oriented to time, oriented to situation, CN II-XII grossly intact. ABSENT: m otor sensory deficit Psychiatric exam: PRESENT: appropriate affect, normal mood Skin exam: PRESENT: dry, intact, warm. ABSENT: jaundice, rash, urticaria Results Laboratory Results: 08/07/18 22:45 08/07/18 22:45 08/07/18 08/07/18 08/08/18 22:45 22:45 00:08 WBC 7.2 RBC 3.78 L Hgb 11.9 L Hct 36.3 L MCV 96 MCH 31.5 MCHC 32.8 RDW 16.0 H Plt Count 266 Seg Neutrophils % 61.2 Lymphocytes % 17.6 Monocytes % 17.1 H Eosinophils % 2.6 Basophils % 1.5 Absolute Neutrophils 4.4 Absolute Lymphocytes 1.3 Absolute Monocytes 1.2 Absolute Eosinophils 0.2 Absolute Basophils 0.1 VBG pH 7.28 L VBG pCO2 72.0 H* VBG HCO3 33.3 H VBG Base Excess 4.6 Sodium 141.0 Potassium 4.4 Chloride 96 L Carbon Dioxide 30 Anion Gap 15 BUN 36 H Creatinine 8.36 H Est GFR ( Amer) 8 L Est GFR (Non-Af Amer) 6 L Glucose 128 H Calcium 8.5 Total Bilirubin 0.5 AST 18 ALT 26 Alkaline Phosphatase 88 Total Protein 7.1 Albumin 3.5 08/07/18 08/07/18 08/07/18 22:45 22:45 22:45 Creatine Kinase 83 CK-MB (CK-2) 4.48 Troponin I 0.081 NT-Pro-B Natriuret Pep 09373 H Impressions: Chest X-Ray 08/07/18 22:45 IMPRESSION: Atelectasis or infiltrate in the right lung base with right pleural effusion. Findings may reflect pneumonia. Clinical correlation recommended Assessment and Plan - Diagnosis (1) Acute on chronic respiratory failure with hypoxia and hypercapnia Is this a current diagnosis for this admission?: Yes Plan: Patient will be treated with BiPAP and other interventions as required to supplement him and maintain adequate tissue oxygenation and respiration of CO2 during his acute phase of COPD exacerbation. Eventually it is hoped to return him to his baseline of 3 L of oxygen per minute via nasal cannula continuously at home. Arterial or venous blood gases will be obtained as needed. (2) COPD exacerbation Is this a current diagnosis for this admission?: Yes Plan: Patient be treated aggressively with a pulmonary toilet utilizing Xopenex, Pulmicort and Atrovent via nebulizer with intravenous Solu-Medrol and supplemental oxygen as well as noninvasive airway pressure devices and even intubation if necessary. A pulmonary medicine consultation may be obtained. Daily CBCs will be obtained. (3) End-stage renal disease on peritoneal dialysis Is this a current diagnosis for this admission?: Yes Plan: Dr. Sams will be consulted to manage the patient's end-stage renal disease an d peritoneal dialysis. Daily metabolic profiles and magnesium levels will be obtained. (4) Diabetes mellitus type 2 in obese Is this a current diagnosis for this admission?: Yes Plan: Patient was maintained on his usual diabetic medications. A diabetic diet will be utilized. Patient will also have supplemental sliding scale insulin for control of hyperglycemia with AC and at bedtime blood sugars. Hemoglobin A1c will be obtained to assess current diabetic therapy. - Time Time Spent with patient: 25-34 minutes Medications reviewed and adjusted accordingly: Yes Anticipated discharge: Home - Inpatient Certification Based on my medical assessment, after consideration of the patient's comorbidities, presenting symptoms, or acuity I expect that the services needed warrant INPATIENT care.: Yes I certify that my determination is in accordance with my understanding of Medicare's requirements for reasonable and necessary INPATIENT services [42 CFR 412.3e].: Yes Medical Necessity: Significant Comorbidiites Make Outpatient Treatment Too Risky, Need Close Monitoring Due to Risk of Patient Decompensation, Need For Continuous Telemetry Monitoring, Need for Nebulizer Therapy and Monitoring of Response, Risk of Complication if Not Cared For in Hospital
[2018-08-08] MEDS ORDERED: METHYLPREDNISOLONE INJ 40 MG/1 ML SDV IV SCH (06:00)
[2018-08-08] MEDS: PANTOPRAZOLE SODIUM 40 MG TABLET.DR PO SCH ×2 (06:28→16:40)
[2018-08-08] MEDS: HEPARIN SOD (PORCINE) 5,000 UNIT/ML 1 ML SYRINGE SUBCUT SCH ×3 (06:34→21:40)
--- NOTE | 2018-08-08 06:38 | EKG REPORT ---
SEVERITY:- OTHERWISE NORMAL ECG - SINUS RHYTHM VENTRICULAR PREMATURE COMPLEX : Confirmed by: Yaya Pike MD 08-Aug-2018 06:38:05
--- NOTE | 2018-08-08 06:38 | EKG REPORT ---
SEVERITY:- BORDERLINE ECG - SINUS RHYTHM VENTRICULAR PREMATURE COMPLEX BORDERLINE PROLONGED QT INTERVAL : Confirmed by: Yaya Pike MD 08-Aug-2018 06:38:18
[2018-08-08] MEDS: INSULIN REG, HUMAN 100 UNIT/ML 3 ML VIAL (PYX) SUBCUT PRN ×4 (08:02→21:52)
[2018-08-08] MEDS: BUDESONIDE NEB 0.5 MG/2 ML AMPUL NEB SCH ×2 (08:24→20:50)
[2018-08-08] MEDS: IPRATROPIUM BROMIDE 0.02% NEB 0.5 MG/2.5 ML AMPUL NEB SCH ×2 (08:24→16:03)
[2018-08-08] MEDS: LEVALBUTEROL HCL NEB 1.25 MG/3 ML AMPUL NEB SCH ×2 (08:24→16:03)
[2018-08-08] MEDS: ESCITALOPRAM OXALATE 10 MG TABLET PO SCH (09:36)
[2018-08-08] MEDS: DOCUSATE SODIUM 100 MG CAPSULE PO SCH ×2 (09:36→17:02)
[2018-08-08] MEDS: MAGNESIUM OXIDE 400 MG TABLET PO SCH ×2 (09:37→17:02)
[2018-08-08] MEDS: ISOSORBIDE MONONITRATE 30 MG TAB.ER.24H PO SCH (09:37)
[2018-08-08] MEDS: FINASTERIDE 5 MG TABLET PO SCH (09:37)
[2018-08-08] MEDS: ASPIRIN 81 MG TABLET, ENT COATED PO SCH (09:37)
[2018-08-08 09:39] LABS: ABSOLUTE LYMPHOCYTES (AUTO) 0.4 10^3/uL (0.5-4.7); ABSOLUTE MONOCYTES (AUTO) 0.1 10^3/uL (0.1-1.4); ABSOLUTE NEUT (AUTO) 6.3 10^3/uL (1.7-8.2); BASOPHILS % (AUTO) 0.3 % (0-2); HEMATOCRIT 36.4 % (37.9-51.0); HEMOGLOBIN 11.8 g/dL (13.5-17.0); LYMPHOCYTES % (AUTO) 5.5 % (13-45); MEAN CORPUSCULAR HGB CONC 32.5 g/dL (32.0-36.0); MEAN CORPUSCULAR VOLUME 95 fl (80-97); MONOCYTES % (AUTO) 1.5 % (3-13); PLATELET COUNT 263 10^3/uL (150-450); RED BLOOD COUNT 3.83 10^6/uL (4.35-5.55); RED CELL DISTRIBUTION WIDTH 16.5 % (11.5-14.0); SEGMENTED NEUTROPHILS % (AUTO) 92.7 % (42-78); TOTAL CELLS COUNTED % (AUTO) 100 %; WHITE BLOOD COUNT 6.9 10^3/uL (4.0-10.5)
[2018-08-08] MEDS ORDERED: VITAMIN B COMP W C PO SCH (10:00)
[2018-08-08] MEDS ORDERED: FOLIC ACID PO SCH (10:00)
[2018-08-08 10:03] LABS: ALANINE AMINOTRANSFERASE 18 U/L (21-72); ALBUMIN 3.6 g/dL (3.5-5.0); ALKALINE PHOSPHATASE 89 U/L (38-126); ANION GAP 19 (5-19); ASPARTATE AMINO TRANSFERASE 15 U/L (17-59); BILIRUBIN,DIRECT 0.5 mg/dL (0.0-0.4); BILIRUBIN,TOTAL 0.5 mg/dL (0.2-1.3); BLOOD UREA NITROGEN 39 mg/dL (7-20); CALCIUM 8.4 mg/dL (8.4-10.2); CARBON DIOXIDE 23 mmol/L (22-30); CHLORIDE 97 mmol/L (98-107); GLUCOSE 308 mg/dL (75-110); POTASSIUM 4.2 mmol/L (3.6-5.0); SODIUM 139.2 mmol/L (137-145); TOTAL PROTEIN 7.2 g/dL (6.3-8.2)
--- NOTE | 2018-08-08 10:18 | PDOC PROGRESS REPORT ---
Subjective Progress Note for:: 08/08/18 Subjective:: 67 year old male who presented to the emergency room complaining of dyspnea. Patient admits for the last several days he has experienced gradually worsening dyspnea accompanied by a cough productive of clear sputum, progressively worsening fatigue, generalized weakness and decreased appetite. He further admits that his symptoms greatly escalated on 08/07/2018 becoming severe and necessitating a trip to the emergency room. He tried treating himself at home by increasing his O2 from 3 L/min to 5 or 6 L/min and using additional breathing treatments all without substantial relief. He has not identified any aggravating or ameliorating factors for his dyspnea but has numerous prior similar episodes related to his COPD and CHF. In the emergency room he was fou nd to be significantly hypoxic and hypercapnic requiring treatment with BiPAP. His CBC was normal. His chest x-ray revealed a right pleural effusion. His BNP was elevated. With these findings the patient was admitted to hospital for further evaluation treatment. 08/08/2018-no acute events since the admission. Comfortably in the bed. Nurses are about to start peritoneal dialysis. Patient denies any complaints. Presently on BiPAP. Chest x-ray indicates possible right base pneumonia. Reason For Visit: RESPIRATORY DISTRESS, COPD EXACERBATION, ESRD ON Physical Exam Vital Signs: Temp Pulse Resp BP Pulse Ox 97.4 F 73 22 H 149/72 H 96 08/08/18 07:56 08/08/18 08:25 08/08/18 08:25 08/08/18 07:56 08/08/18 08:25 Intake & Output 08/07/18 08/08/18 08/09/18 06:59 06:59 06:59 Intake Total 2550 Output Total 1300 Balance 1250 Weight 93 kg General appearance: PRESENT: mild distress, obese Head exam: PRESENT: atraumatic Eye exam: PRESENT: PERRLA Neck exam: ABSENT: carotid bruit, JVD, lymphadenopathy, thyromegaly Respiratory exam: PRESENT: decreased breath sounds Pulses: PRESENT: normal dorsalis pedis pul GI/Abdominal exam: PRESENT: normal bowel sounds, soft, other - Patient has a peritoneal dialysis catheter in the abdominal wall. Site was clean.. ABSENT: distended, guarding, mass, organolmegaly, rebound, tenderness Rectal exam: PRESENT: deferred Extremities exam: PRESENT: full ROM. ABSENT: calf tenderness, clubbing, pedal edema Neurological exam: PRESENT: alert, awake, oriented to person, oriented to place, oriented to time, oriented to situation, CN II-XII grossly intact. ABSENT: motor sensory deficit Psychiatric exam: PRESENT: appropriate affect, normal mood. ABSENT: homicidal ideation, suicidal ideation Results Laboratory Results: 08/08/18 09:20 08/08/18 09:20 08/07/18 08/07/18 08/08/18 22:45 22:45 00:08 WBC 7.2 RBC 3.78 L Hgb 11.9 L Hct 36.3 L MCV 96 MCH 31.5 MCHC 32.8 RDW 16.0 H Plt Count 266 Seg Neutrophils % 61.2 Lymphocytes % 17.6 Monocytes % 17.1 H Eosinophils % 2.6 Basophils % 1.5 Absolute Neutrophils 4.4 Absolute Lymphocytes 1.3 Absolute Monocytes 1.2 Absolute Eosinophils 0.2 Absolute Basophils 0.1 VBG pH 7.28 L VBG pCO2 72.0 H* VBG HCO3 33.3 H VBG Base Excess 4.6 Sodium 141.0 Potassium 4.4 Chloride 96 L Carbon Dioxide 30 Anion Gap 15 BUN 36 H Creatinine 8.36 H Est GFR ( Amer) 8 L Est GFR (Non-Af Amer) 6 L Glucose 128 H Calcium 8.5 Magnesium Total Bilirubin 0.5 AST 18 ALT 26 Alkaline Phosphatase 88 Total Protein 7.1 Albumin 3.5 08/08/18 08/08/18 09:20 09:20 WBC 6.9 RBC 3.83 L Hgb 11.8 L Hct 36.4 L MCV 95 MCH 31.0 MCHC 32.5 RDW 16.5 H Plt Count 263 Seg Neutrophils % 92.7 H Lymphocytes % 5.5 L Monocytes % 1.5 L Eosinophils % 0.0 Basophils % 0.3 Absolute Neutrophils 6.3 Absolute Lymphocytes 0.4 L Absolute Monocytes 0.1 Absolute Eosinophils 0.0 Absolute Basophils 0.0 VBG pH VBG pCO2 VBG HCO3 VBG Base Excess Sodium 139.2 Potassium 4.2 Chloride 97 L Carbon Dioxide 23 Anion Gap 19 BUN 39 H Creatinine 8.46 H Est GFR ( Amer) 8 L Est GFR (Non-Af Amer) 6 L Glucose 308 H Calcium 8.4 Magnesium 1.7 Total Bilirubin 0.5 AST 15 L ALT 18 L Alkaline Phosphatase 89 Total Protein 7.2 Albumin 3.6 05/15/19 05/15/19 05/15/19 22:45 22:45 22:45 Creatine Kinase 83 CK-MB (CK-2) 4.48 Troponin I 0.081 NT-Pro-B Natriuret Pep 18776 H Impressions: Chest X-Ray 08/07/18 22:45 IMPRESSION: Atelectasis or infiltrate in the right lung base with right pleural effusion. Findings may reflect pneumonia. Clinical correlation recommended Assessment and Plan - Diagnosis (1) Acute on chronic respiratory failure with hypoxia and hypercapnia Is this a current diagnosis for this admission?: Yes Plan: Patient will be treated with BiPAP and other interventions as required to supplement him and maintain adequate tissue oxygenation and respiration of CO2 during his acute phase of COPD exacerbation. Eventually it is hoped to return him to his baseline of 3 L of oxygen per minute via nasal cannula continuously at home. Arterial or venous blood gases will be obtained as needed. [id number] with multiple medical problems including COPD, end-stage renal disease on peritoneal dialysis admitted with acute on chronic respiratory failure with hypoxia and hypercapnia he is presently on BiPAP. On 4 L with 40% oxygen pulse ox is 100%. Patient is in mild distress in the bed on BiPAP at the time of examination. Chest x-ray suggestive of pneumonia in the right base. And is to continue the BiPAP on as-needed basis, continue nebulizations on as- needed basis. (2) COPD exacerbation Is this a current diagnosis for this admission?: Yes Plan: Patient be treated aggressively with a pulmonary toilet utilizing Xopenex, Pulmicort and Atrovent via nebulizer with intravenous Solu-Medrol and supplemental oxygen as well as noninvasive airway pressure devices and even intubation if necessary. A pulmonary medicine consultation may be obtained. Daily CBCs will be obtained. 2018-patient admitted for COPD exacerbation presently on Xopenex, Pulmicort, Atrovent. Patient is also on BiPAP. He is also receiving IV Solu-Medrol at this point. (3) ESRD (end stage renal disease) Is this a current diagnosis for this admission?: No Plan: 08/08/2018-patient has a history of end-stage renal disease on peritoneal dialysis. Consult with Dr. Sams is requested. (4) Anemia in chronic kidney disease Is this a current diagnosis for this admission?: Yes Plan: 08/08/2018-patient's hemoglobin is 11.8 anemia of chronic disease most likely secondary to end-stage renal disease. - Time Time Spent with patient: 15-24 minutes Medications reviewed and adjusted accordingly: Yes Anticipated discharge: Home
[2018-08-08] MEDS: LEVOFLOXACIN 500 MG/D5W RTU 500 MG/100 ML RTUPB IV SCH (12:19)
[2018-08-08] MEDS: GENTAMICIN SULFATE 0.1% CREAM 15 GM TP SCH (15:02)
--- NOTE | 2018-08-08 18:07 | PDOC CONSULTATION ---
Consultation Consult Date: 08/08/18 Provider Consulted: IGNACIO GRAY Consult reason:: I was asked to see the patient to help in management of his peritoneal dialysis while here in the hospital. History of Present Illness Admission Date/PCP: 08/08/18 01:46 [facility] History of Present Illness: CELIO WAGNER is a 67 year old male with history of end-stage renal disease on peritoneal dialysis, COPD, hypertension, insulin-dependent diabetes mellitus, and congestive heart failure who was admitted last night because of worsening shortness of breath. The patient presented to the emergency room last night because of worsening shortness of breath for the last 3 days associated with cough productive of some clear phlegm fatigue, generalized weakness, and decreased appetite. Patient is on home oxygen and he increase his oxygen from 3 to 5 L at home but despite that has been persistently short of breath. In the emergency room he was found to be hypoxic and hypercapnic and was treated with BiPAP. His chest x-ray showed right pleural effusion, and BNP was also elevated. He was subsequently admitted for acute respiratory failure and COPD exacerbation. Patient does peritoneal dialysis through the cycler machine. He does 4 exchanges at night with a 3 L fill volume using 2.5% solution plus a last fill of 2500 mL solution using Extraneal solution. He was supposed to have another midday exchange but from what I can get from the patient he was not really doing the midday exchange. Upon admission last night we started him on manual exchanges since we do not do CCPD in the hospital. This morning when I saw him he said he feels better compared to last night when he presented. However he still short of breath. He denies any chest pains. He denies any problem with peritoneal dialysis including a cloudy PD fluid effluent nor abdominal pain. Otherwise he does not have any other further complaints. Past Medical History Cardiac Medical History: Reports: CHF-Diastolic, Coronary Artery Disease, Hyperlipidemia, Hypertension-primary, Myocardial Infarction - Twice with stents placed, Pulmonary Hypertension Pulmonary Medical History: Reports: Chronic Obstructive Pulmonary Disease (COPD), Respiratory Failure Endocrine Medical History: Reports: Diabetes Mellitus Type 2, Obesity Complications of Diabetes: Reports: Autonomic Neuropathy, Diabetic Foot Ulcer, Nephropathy, Retinopathy Renal/ Medical History: Reports: Benign Prostatic Hyperplasia, End Stage Renal Disease, Hypocalcemia, Hyperphosphatemia GI Medical History: Reports: Diverticulitis Psychiatric Medical History: Reports: Depression, Tobacco Dependency Infectious Medical History: Reports: Clostridium Difficile Hematology Medical History: Reports Anemia of Chronic Kidney Disease Past Surgical History Past Surgical History: Reports: Cardiac Catheterization, Coronary Stent - X2, Dialysis Access Surgery PD, Other - Small bowel resection; adhesion lysis; peritoneal dialysis access Social History Information Source: Patient, [facility] Records Lives with: Family Smoking Status: Former Smoker Frequency of Alcohol Use: Rare Hx Recreational Drug Use: No Drugs: None Hx Prescription Drug Abuse: No - Advance Directive Resuscitation Status: Full Code Family History Family History: CAD, DM, Hypertension Parental Family History Reviewed: Yes Children Family History Reviewed: Unknown Sibling(s) Family History Reviewed.: Yes Medication/Allergy Home Medications: Aspirin [Ecotrin 81 mg EC Tablet] 81 mg PO DAILY 04/23/18 Atorvastatin Calcium [Lipitor 80 mg Tablet] 80 mg PO QHS 04/23/18 Carvedilol [Coreg 12.5 mg Tablet] 12.5 mg PO Q12 04/23/18 Escitalopram Oxalate [Lexapro 10 mg Tablet] 30 mg PO DAILY 04/23/18 Finasteride [Proscar 5 mg Tablet] 5 mg PO DAILY 04/23/18 Folic Acid/Vitamin B Comp W-C [Renal Multivitamin Tablet] 1 tab PO DAILY 04/23/18 Insulin Glargine,Hum.rec.anlog [Lantus (Pyxis) Insulin 100 Unit/1 ml 10 ml] 80 unit SUBCUT QHS 04/23/18 Isosorbide Mononitrate [Imdur 30 mg Tablet.er] 30 mg PO DAILY 04/23/18 Terazosin HCl [Hytrin] 2 mg PO QHS 04/23/18 Famotidine [Pepcid 20 mg Tablet] 20 mg PO QHS 08/08/18 Ipratropium/Albuterol Sulfate [Duoneb 3 ml Ampul] 1 vial NEB QID 08/08/18 Allergies/Adverse Reactions: No Known Allergies Allergy (Verified 07/22/18 12:25) Review of Systems All systems: reviewed and no additional remarkable complaints except as stated Review of Systems: Constitutional: ABSENT: chills, fever(s), headache(s), weight gain, weight loss; admits fatigue and appetite loss Eyes: ABSENT: visual disturbances Ears: ABSENT: hearing changes Cardiovascular: ABSENT: chest pain, edema, orthropnea, palpitations; positive dyspnea Respiratory: ABSENT: Hemoptysis; positive cough and dyspnea with wheezing on presentation Gastrointestinal: ABSENT: abdominal pain, constipation, diarrhea, hematemesis, hematochezia, nausea, vomiting Genitourinary: ABSENT: dysuria, hematuria Musculoskeletal: ABSENT: joint swelling Integumentary: ABSENT: rash, wounds Neurological: ABSENT: abnormal gait, abnormal speech, confusion, dizziness, focal weakness, numbness, syncope Psychiatric: ABSENT: anxiety, depression Endocrine: ABSENT: cold intolerance, heat intolerance, polydipsia, polyuria Hematologic/Lymphatic: ABSENT: easy bleeding, easy bruising, lymphadenopathy Physical Exam Vital Signs: Temp Pulse Resp BP Pulse Ox 97.5 F 75 20 151/53 H 97 08/08/18 15:02 08/08/18 16:05 08/08/18 16:05 08/08/18 15:41 08/08/18 16:05 Intake & Output 08/07/18 08/08/18 08/09/18 06:59 06:59 06:59 Intake Total 2550 5337 Output Total 1300 4500 Balance 1250 837 Weight 93 kg 94.2 kg Exam: General appearance: No acute distress currently on nasal cannula as he is about to eat lunch, cooperative, well-developed, well-nourished Head exam: PRESENT: atraumatic, normocephalic Eye exam: PRESENT: Conjunctiva [place], EOMI, PERRLA. ABSENT: conjunctival injection, scleral icterus Mouth exam: PRESENT: moist, neck supple, tongue midline Neck exam: PRESENT: full ROM. ABSENT: carotid bruit, JVD, lymphadenopathy, thyromegaly Respiratory exam: PRESENT: Diminished to auscultation bilaterally. ABSENT: rales, rhonchi, stridor, wheezes Cardiovascular exam: PRESENT: RRR, +S1, +S2. ABSENT: systolic murmur Pulses: PRESENT: normal radial pulses, normal dorsalis pedis pulses GI/Abdominal exam: PRESENT: normal bowel sounds, soft. PD catheter in place with good exit site without any drainage ABSENT: guarding, mass, tenderness Rectal exam: Deferred Extremities exam: PRESENT: full ROM. ABSENT: calf tenderness, pedal edema Musculoskeletal: PRESENT: full ROM. ABSENT: deformity Neurological exam: PRESENT: alert, Awake, Oriented to person, Oriented to place, Oriented to time, reflexes normal, CN II-XII grossly intact. ABSENT: motor sensory deficit Psychiatric exam: PRESENT: appropriate affect, normal mood. ABSENT: homicidal ideation, suicidal ideation Skin exam: PRESENT: intact, dry, warm. ABSENT: rash Results Laboratory Results: 08/08/18 09:20 08/08/18 09:20 08/07/18 08/07/18 08/08/18 22:45 22:45 00:08 WBC 7.2 RBC 3.78 L Hgb 11.9 L Hct 36.3 L MCV 96 MCH 31.5 MCHC 32.8 RDW 16.0 H Plt Count 266 Seg Neutrophils % 61.2 Lymphocytes % 17.6 Monocytes % 17.1 H Eosinophils % 2.6 Basophils % 1.5 Absolute Neutrophils 4.4 Absolute Lymphocytes 1.3 Absolute Monocytes 1.2 Absolute Eosinophils 0.2 Absolute Basophils 0.1 VBG pH 7.28 L VBG pCO2 72.0 H* VBG HCO3 33.3 H VBG Base Excess 4.6 Sodium 141.0 Potassium 4.4 Chloride 96 L Carbon Dioxide 30 Anion Gap 15 BUN 36 H Creatinine 8.36 H Est GFR ( Amer) 8 L Est GFR (Non-Af Amer) 6 L Glucose 128 H Calcium 8.5 Magnesium Total Bilirubin 0.5 AST 18 ALT 26 Alkaline Phosphatase 88 Total Protein 7.1 Albumin 3.5 08/08/18 08/08/18 09:20 09:20 WBC 6.9 RBC 3.83 L Hgb 11.8 L Hct 36.4 L MCV 95 MCH 31.0 MCHC 32.5 RDW 16.5 H Plt Count 263 Seg Neutrophils % 92.7 H Lymphocytes % 5.5 L Monocytes % 1.5 L Eosinophils % 0.0 Basophils % 0.3 Absolute Neutrophils 6.3 Absolute Lymphocytes 0.4 L Absolute Monocytes 0.1 Absolute Eosinophils 0.0 Absolute Basophils 0.0 VBG pH VBG pCO2 VBG HCO3 VBG Base Excess Sodium 139.2 Potassium 4.2 Chloride 97 L Carbon Dioxide 23 Anion Gap 19 BUN 39 H Creatinine 8.46 H Est GFR ( Amer) 8 L Est GFR (Non-Af Amer) 6 L Glucose 308 H Calcium 8.4 Magnesium 1.7 Total Bilirubin 0.5 AST 15 L ALT 18 L Alkaline Phosphatase 89 Total Protein 7.2 Albumin 3.6 08/07/18 08/07/18 08/07/18 22:45 22:45 22:45 Creatine Kinase 83 CK-MB (CK-2) 4.48 Troponin I 0.081 NT-Pro-B Natriuret Pep 65140 H Impressions: Chest X-Ray 08/07/18 22:45 IMPRESSION: Atelectasis or infiltrate in the right lung base with right pleural effusion. Findings may reflect pneumonia. Clinical correlation recommended Assessment & Plan - Diagnosis (1) Acute on chronic respiratory failure with hypoxia and hypercapnia Is this a current diagnosis for this admission?: Yes Plan: Due to COPD exacerbation. Management per the hospitalist service. (2) COPD exacerbation Is this a current diagnosis for this admission?: Yes (3) End-stage renal disease on peritoneal dialysis Is this a current diagnosis for this admission?: Yes Plan: We will do manual exchanges while here in the hospital. Since we do not have the 3 L bags were going to use the 2.5 L dialysis solutions. He is going to have 5 exchanges with fill volume of 2.5 L using 2.5% solution unless the blood pressure is less than 110 then we will use 1.5% dialysis solution. We are going to do daily weight monitoring and daily dialysis catheter exit site care using gentamicin. Discussed treatment plan with the nurses. (4) Anemia in chronic kidney disease Is this a current diagnosis for this admission?: Yes Plan: Currently optimal and does not need any Procrit. (5) Hypertension Is this a current diagnosis for this admission?: Yes Plan: Fairly controlled. (6) Diabetes mellitus type 2 in obese Is this a current diagnosis for this admission?: Yes - Notes Notes: Thank you very much for this consultation. We will continue to follow the patient with you. - Time Time Spent: 50 to 70 Minutes
[2018-08-08] MEDS: INSULIN GLARGINE,HUM.REC.ANLOG 1,000 UNIT/10 ML VIAL SUBCUT SCH (21:38)
[2018-08-08] MEDS: METHYLPREDNISOLONE INJ 40 MG/1 ML SDV IV SCH (21:42)
[2018-08-08] MEDS: DOXAZOSIN MESYLATE 2 MG TABLET PO SCH (21:45)
[2018-08-08] MEDS: ATORVASTATIN CALCIUM 80 MG TABLET PO SCH (21:45)
[2018-08-09] MEDS: LEVALBUTEROL HCL NEB 1.25 MG/3 ML AMPUL NEB SCH ×3 (00:54→16:02)
[2018-08-09] MEDS: IPRATROPIUM BROMIDE 0.02% NEB 0.5 MG/2.5 ML AMPUL NEB SCH ×3 (00:55→16:02)
[2018-08-09] MEDS: HEPARIN SOD (PORCINE) 5,000 UNIT/ML 1 ML SYRINGE SUBCUT SCH ×3 (06:25→22:22)
[2018-08-09] MEDS: PANTOPRAZOLE SODIUM 40 MG TABLET.DR PO SCH ×2 (06:25→17:24)
[2018-08-09 07:54] LABS: ABSOLUTE LYMPHOCYTES (AUTO) 0.5 10^3/uL (0.5-4.7); ABSOLUTE MONOCYTES (AUTO) 0.4 10^3/uL (0.1-1.4); ABSOLUTE NEUT (AUTO) 6.5 10^3/uL (1.7-8.2); BASOPHILS % (AUTO) 0.2 % (0-2); HEMATOCRIT 33.7 % (37.9-51.0); LYMPHOCYTES % (AUTO) 7.1 % (13-45); MEAN CORPUSCULAR HEMOGLOBIN 31.3 pg (27.0-33.4); MEAN CORPUSCULAR HGB CONC 32.6 g/dL (32.0-36.0); MEAN CORPUSCULAR VOLUME 96 fl (80-97); MONOCYTES % (AUTO) 5.2 % (3-13); PLATELET COUNT 239 10^3/uL (150-450); RED BLOOD COUNT 3.51 10^6/uL (4.35-5.55); RED CELL DISTRIBUTION WIDTH 15.9 % (11.5-14.0); SEGMENTED NEUTROPHILS % (AUTO) 87.5 % (42-78); TOTAL CELLS COUNTED % (AUTO) 100 %; WHITE BLOOD COUNT 7.4 10^3/uL (4.0-10.5)
[2018-08-09] MEDS: BUDESONIDE NEB 0.5 MG/2 ML AMPUL NEB SCH ×2 (07:54→20:35)
[2018-08-09 08:27] LABS: ANION GAP 17 (5-19); BLOOD UREA NITROGEN 46 mg/dL (7-20); CALCIUM 8.2 mg/dL (8.4-10.2); CARBON DIOXIDE 26 mmol/L (22-30); CHLORIDE 95 mmol/L (98-107); GLUCOSE 292 mg/dL (75-110); POTASSIUM 4.1 mmol/L (3.6-5.0); SODIUM 138.2 mmol/L (137-145)
[2018-08-09] MEDS: INSULIN REG, HUMAN 100 UNIT/ML 3 ML VIAL (PYX) SUBCUT PRN ×4 (08:32→22:22)
--- NOTE | 2018-08-09 10:31 | PDOC PROGRESS REPORT ---
Subjective Progress Note for:: 08/09/18 Subjective:: 67 year old male who presented to the emergency room complaining of dyspnea. Patient admits for the last several days he has experienced gradually worsening dyspnea accompanied by a cough productive of clear sputum, progressively worsening fatigue, generalized weakness and decreased appetite. He further admits that his symptoms greatly escalated on 08/07/2018 becoming severe and necessitating a trip to the emergency room. He tried treating himself at home by increasing his O2 from 3 L/min to 5 or 6 L/min and using additional breathing treatments all without substantial relief. He has not identified any aggravating or ameliorating factors for his dyspnea but has numerous prior similar episodes related to his COPD and CHF. In the emergency room he was fou nd to be significantly hypoxic and hypercapnic requiring treatment with BiPAP. His CBC was normal. His chest x-ray revealed a right pleural effusion. His BNP was elevated. With these findings the patient was admitted to hospital for further evaluation treatment. 08/08/2018-no acute events since the admission. Comfortably in the bed. Nurses are about to start peritoneal dialysis. Patient denies any complaints. Presently on BiPAP. Chest x-ray indicates possible right base pneumonia. 08/09/2018-patient is still on BiPAP. No problems with the peritoneal dialysis. Communicating well. Pulse ox is 99 200% on 35% oxygen. Chest x-ray shows questionable right lower lobe pneumonia presently on Rocephin on levo floxacillin. Patient is stable he may go back to home tomorrow. Reason For Visit: RESPIRATORY DISTRESS, COPD EXACERBATION, ESRD ON Physical Exam Vital Signs: Temp Pulse Resp BP Pulse Ox 97.5 F 75 18 132/49 H 95 08/09/18 07:14 08/09/18 07:55 08/09/18 07:55 08/09/18 07:14 08/09/18 07:55 Intake & Output 08/08/18 08/09/18 08/10/18 06:59 06:59 06:59 Intake Total 2550 76274 Output Total 1300 84720 Balance 1250 2010 Weight 93 kg 97.3 kg General appearance: PRESENT: no acute distress, other - on BiPAP Head exam: PRESENT: atraumatic Eye exam: PRESENT: conjunctiva pink, EOMI, PERRLA. ABSENT: scleral icterus Ear exam: PRESENT: normal external ear exam Teeth exam: PRESENT: poor dentation Neck exam: ABSENT: carotid bruit, JVD, lymphadenopathy, thyromegaly Respiratory exam: PRESENT: decreased breath sounds Cardiovascular exam: PRESENT: tachycardia GI/Abdominal exam: PRESENT: normal bowel sounds, soft, other - Patient has peritoneal dialysis access. Access site is clean.. ABSENT: distended, guarding, mass, organolmegaly, rebound, tenderness Rectal exam: PRESENT: deferred Extremities exam: PRESENT: full ROM. ABSENT: calf tenderness, clubbing, pedal edema Neurological exam: PRESENT: alert, awake, oriented to person, oriented to place, oriented to time, oriented to situation, CN II-XII grossly intact. ABSENT: motor sensory deficit Psychiatric exam: PRESENT: appropriate affect, normal mood. ABSENT: homicidal ideation, suicidal ideation Results Laboratory Results: 08/09/18 07:20 08/09/18 07:20 08/09/18 08/09/18 07:20 07:20 WBC 7.4 RBC 3.51 L Hgb 11.0 L Hct 33.7 L MCV 96 MCH 31.3 MCHC 32.6 RDW 15.9 H Plt Count 239 Seg Neutrophils % 87.5 H Lymphocytes % 7.1 L Monocytes % 5.2 Eosinophils % 0.0 Basophils % 0.2 Absolute Neutrophils 6.5 Absolute Lymphocytes 0.5 Absolute Monocytes 0.4 Absolute Eosinophils 0.0 Absolute Basophils 0.0 Sodium 138.2 Potassium 4.1 Chloride 95 L Carbon Dioxide 26 Anion Gap 17 BUN 46 H Creatinine 7.55 H Est GFR ( Amer) 9 L Est GFR (Non-Af Amer) 7 L Glucose 292 H Calcium 8.2 L Magnesium 1.8 08/07/18 08/07/18 08/07/18 22:45 22:45 22:45 Creatine Kinase 83 CK-MB (CK-2) 4.48 Troponin I 0.081 NT-Pro-B Natriuret Pep 61301 H Impressions: Chest X-Ray 08/07/18 22:45 IMPRESSION: Atelectasis or infiltrate in the right lung base with right pleural effusion. Findings may reflect pneumonia. Clinical correlation recommended Assessment and Plan - Diagnosis (1) Acute on chronic respiratory failure with hypoxia and hypercapnia Is this a current diagnosis for this admission?: Yes Plan: Patient will be treated with BiPAP and other interventions as required to supplement him and maintain adequate tissue oxygenation and respiration of CO2 during his acute phase of COPD exacerbation. Eventually it is hoped to return him to his baseline of 3 L of oxygen per minute via nasal cannula continuously at home. Arterial or venous blood gases will be obtained as needed. 08/[id number]-[id number]-old with multiple medical problems including COPD, end-stage renal disease on peritoneal dialysis admitted with acute on chronic respiratory failure with hypoxia and hypercapnia he is presently on BiPAP. On 4 L with 40% oxygen pulse ox is 100%. Patient is in mild distress in the bed on BiPAP at the time of examination. Chest x-ray suggestive of pneumonia in the right base. And is to continue the BiPAP on as-needed basis, continue nebulizations on as- needed basis. 08/[id number]-zsgp-old male with history of COPD and end-stage renal disease on peritoneal dialysis admitted for acute on chronic respiratory failure with hypoxia and hypercapnia requiring BiPAP due to COPD exacerbation. Oxygen requirements are improving. Patient is on 3 L of oxygen at home. If we can wean him off on BiPAP today probably can go home tomorrow. Chest x-ray shows questionable right-sided pneumonia most likely community-acquired presently on Rocephin and levo floxacillin. (2) COPD exacerbation Is this a current diagnosis for this admission?: Yes Plan: Patient be treated aggressively with a pulmonary toilet utilizing Xopenex, Pulmicort and Atrovent via nebulizer with intravenous Solu-Medrol and supplemental oxygen as well as noninvasive airway pressure devices and even intubation if necessary. A pulmonary medicine consultation may be obtained. Daily CBCs will be obtained. 08/08/2018-patient admitted for COPD exacerbation presently on Xopenex, Pulmicort, Atrovent. Patient is also on BiPAP. He is also receiving IV Solu- Medrol at this point. 08/09/[id number]-riaz-old male admitted with COPD exacerbation presently on Xopenex, Pulmicort and Atrovent nebulizations. He is still on BiPAP at 35% oxygen. Oxygen requirements are improving. Plan is to continue the present management. (3) ESRD (end stage renal disease) Is this a current diagnosis for this admission?: No (4) Anemia in chronic kidney disease Is this a current diagnosis for this admission?: Yes (5) Pneumonia Is this a current diagnosis for this admission?: Yes Plan: 08/09/2018-patient chest x-ray indicates questionable right-sided pneumonia cultures are negative so far presently on IV Rocephin and levo floxacillin. Most likely community acquired pneumonia and may be gram-positive organisms are responsible. (6) Hypertension Is this a current diagnosis for this admission?: No Plan: 08/09/2018-patient has history of chronic essential hypertension blood pressure today is 143/60 stable. - Time Time Spent with patient: 25-34 minutes Medications reviewed and adjusted accordingly: Yes Anticipated discharge: Home
[2018-08-09] MEDS: METHYLPREDNISOLONE INJ 40 MG/1 ML SDV IV SCH ×2 (10:54→22:23)
[2018-08-09] MEDS: FOLIC ACID/VITAMIN B COMP W-C CAPSULE PO SCH (10:54)
[2018-08-09] MEDS: ASPIRIN 81 MG TABLET, ENT COATED PO SCH (10:54)
[2018-08-09] MEDS: CARVEDILOL 12.5 MG TABLET PO SCH ×2 (10:54→22:21)
[2018-08-09] MEDS: DOCUSATE SODIUM 100 MG CAPSULE PO SCH ×2 (10:54→17:24)
[2018-08-09] MEDS: ISOSORBIDE MONONITRATE 30 MG TAB.ER.24H PO SCH (10:54)
[2018-08-09] MEDS: ESCITALOPRAM OXALATE 10 MG TABLET PO SCH (10:54)
[2018-08-09] MEDS: MAGNESIUM OXIDE 400 MG TABLET PO SCH ×2 (10:54→17:24)
[2018-08-09] MEDS: FINASTERIDE 5 MG TABLET PO SCH (10:54)
[2018-08-09] MEDS: CEFTRIAXONE 2 GM/D5W RTU 2 GM/50 ML RTUPB IV SCH (10:55)
[2018-08-09] MEDS: GENTAMICIN SULFATE 0.1% CREAM 15 GM TP SCH (10:59)
--- NOTE | 2018-08-09 11:34 | PDOC CONSULTATION ---
Consultation Consult Date: 08/08/18 Attending physician:: IGNACIO GRAY Provider Consulted: DARRIAN DE PAZ Consult reason:: End-stage COPD History of Present Illness Admission Date/PCP: 08/08/18 01:[facility] History of Present Illness: CELIO WAGNER is a 67 year old male that states he was sick for 3 days and came into the ER with pneumonia. 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 Patient has a history of smoking he quit in 1993 he did smoke for 20 years at 2 packs a day. Denies history of childhood asthma. Patient states he sleeps with 2 pillows his legs do swell he denies shortness of breath night, denies coughing at night, patient does snore and wakes up 2-3 times during the night, patient states he wakes feeling tired. He does not currently have a CPAP or BiPAP in the home. Patient denies any recent weight gain or weight loss. Currently on BiPAP will switch to AVAP. Past Medical History Cardiac Medical History: Reports: Congestive Heart Failure, Coronary Artery Disease, Myocardial Infarction - Twice with stents placed, Hyperlipidema, Hypertension Denies: Atrial Fibrillation, DVT, Pulmonary Embolism Pulmonary Medical History: Reports: Chronic Obstructive Pulmonary Disease (COPD), Respiratory Failure Denies: Asthma EENT Medical History: Denies: Cataracts, Ears - Hearing aids Neurological Medical History: Denies: Hemorrhagic CVA, Ischemic CVA, Seizures Endocrine Medical History: Reports: Diabetes Mellitus Type 2, Obesity Denies: Diabetes Mellitus Type 1, Hyperthyroidism, Hypothyroidism Renal/ Medical History: Reports: End Stage Renal Disease Denies: Nephrolithiasis Malignancy Medical History: Reports: None GI Medical History: Reports: Diverticulitis Denies: Cirrhosis, Hepatitis Musculoskeltal Medical History: Denies: Arthritis, Gout Skin Medical History: Denies: Eczema, Psoriasis Psychiatric Medical History: Reports: Depression, Tobacco Dependency Denies: Alcohol Dependency, Substance Abuse Traumatic Medical History: Reports: None Hematology: Reports: Anemia Denies: Bleeding Tendencies Infectious Medical History: Reports: Clostridium Difficile Past Surgical History Past Surgical History: Reports: Cardiac Catheterization, Coronary Stent - X2, Other - Small bowel resection; adhesion lysis; peritoneal dialysis access Social History Lives with: Family Smoking Status: Former Smoker Cigarettes Packs Per Day: 2 Number of Years Smokin Passive smoke exposure as: Child, Adult Frequency of Alcohol Use: Rare Hx Recreational Drug Use: No Drugs: None Hx Prescription Drug Abuse: No Do you have pets?: Yes Have you had any respiratory illnesses as a child?: No - Advance Directive Resuscitation Status: Full Code Family History Family History: CAD, DM, Hypertension Parental Family History Reviewed: Yes Children Family History Reviewed: Yes Sibling(s) Family History Reviewed.: Yes Medication/Allergy Home Medications: Aspirin [Ecotrin 81 mg EC Tablet] 81 mg PO DAILY 04/23/18 Atorvastatin Calcium [Lipitor 80 mg Tablet] 80 mg PO QHS 04/23/18 Carvedilol [Coreg 12.5 mg Tablet] 12.5 mg PO Q12 04/23/18 Escitalopram Oxalate [Lexapro 10 mg Tablet] 30 mg PO DAILY 04/23/18 Finasteride [Proscar 5 mg Tablet] 5 mg PO DAILY 04/23/18 Folic Acid/Vitamin B Comp W-C [Renal Multivitamin Tablet] 1 tab PO DAILY 04/23/18 Insulin Glargine,Hum.rec.anlog [Lantus (Pyxis) Insulin 100 Unit/1 ml 10 ml] 80 unit SUBCUT QHS 04/23/18 Isosorbide Mononitrate [Imdur 30 mg Tablet.er] 30 mg PO DAILY 04/23/18 Terazosin HCl [Hytrin] 2 mg PO QHS 04/23/18 Famotidine [Pepcid 20 mg Tablet] 20 mg PO QHS 08/08/18 Ipratropium/Albuterol Sulfate [Duoneb 3 ml Ampul] 1 vial NEB QID 08/08/18 Allergies/Adverse Reactions: No Known Allergies Allergy (Verified 07/22/18 12:25) Review of Systems Constitutional: PRESENT: night sweats. ABSENT: weight gain, weight loss Eyes: PRESENT: other - Diabetic retinopathy Ears: ABSENT: hearing changes Nose, Mouth, and Throat: ABSENT: mouth pain, sore throat Cardiovascular: PRESENT: dyspnea on exertion Respiratory: PRESENT: cough, dyspnea Gastrointestinal: PRESENT: constipation Genitourinary: ABSENT: dysuria, hematuria, nocturia Musculoskeletal: ABSENT: deformity, joint swelling Neurological: ABSENT: abnormal gait, abnormal movements Psychiatric: PRESENT: depression - history of. ABSENT: homidical ideation, suicidal ideation Endocrine: ABSENT: flushing Hematologic/Lymphatic: ABSENT: easy bruising Allergic/Immunologic: ABSENT: seasonal rhinorrhea Physical Exam Vital Signs: Temp Pulse Resp BP Pulse Ox 97.5 F 75 18 132/49 H 95 08/09/18 07:14 08/09/18 07:55 08/09/18 07:55 08/09/18 07:14 08/09/18 07:55 Intake & Output 08/08/18 08/09/18 08/10/18 06:59 06:59 06:59 Intake Total 2550 22902 Output Total 1300 29785 Balance 1250 2010 Weight 93 kg 97.3 kg General appearance: PRESENT: no acute distress, well-developed, well-nourished Head exam: PRESENT: atraumatic, normocephalic Eye exam: PRESENT: conjunctiva pink, EOMI, PERRLA. ABSENT: scleral icterus Ear exam: PRESENT: normal external ear exam Mouth exam: PRESENT: moist, tongue midline Neck exam: PRESENT: full ROM Respiratory exam: ABSENT: crackles, decreased breath sounds, rales, wheezes Cardiovascular exam: PRESENT: RRR. ABSENT: diastolic murmur, gallop, systolic murmur Pulses: PRESENT: normal dorsalis pedis pul Vascular exam: PRESENT: normal capillary refill GI/Abdominal exam: PRESENT: normal bowel sounds, soft. ABSENT: distended, guarding, mass, organolmegaly, rebound, tenderness Rectal exam: PRESENT: deferred Musculoskeletal exam: PRESENT: ambulatory, full ROM Neurological exam: PRESENT: alert, awake, oriented to situation Psychiatric exam: PRESENT: normal mood. ABSENT: homicidal ideation Skin exam: PRESENT: dry, intact, warm. ABSENT: cyanosis, rash Results Laboratory Results: 08/09/18 07:20 08/09/18 07:20 08/09/18 08/09/18 07:20 07:20 WBC 7.4 RBC 3.51 L Hgb 11.0 L Hct 33.7 L MCV 96 MCH 31.3 MCHC 32.6 RDW 15.9 H Plt Count 239 Seg Neutrophils % 87.5 H Lymphocytes % 7.1 L Monocytes % 5.2 Eosinophils % 0.0 Basophils % 0.2 Absolute Neutrophils 6.5 Absolute Lymphocytes 0.5 Absolute Monocytes 0.4 Absolute Eosinophils 0.0 Absolute Basophils 0.0 Sodium 138.2 Potassium 4.1 Chloride 95 L Carbon Dioxide 26 Anion Gap 17 BUN 46 H Creatinine 7.55 H Est GFR ( Amer) 9 L Est GFR (Non-Af Amer) 7 L Glucose 292 H Calcium 8.2 L Magnesium 1.8 08/07/18 08/07/18 08/07/18 22:45 22:45 22:45 Creatine Kinase 83 CK-MB (CK-2) 4.48 Troponin I 0.081 NT-Pro-B Natriuret Pep 09550 H Impressions: Chest X-Ray 08/07/18 22:45 IMPRESSION: Atelectasis or infiltrate in the right lung base with right pleural effusion. Findings may reflect pneumonia. Clinical correlation recommended Assessment & Plan - Diagnosis (1) Acute on chronic respiratory failure with hypoxia and hypercapnia Is this a current diagnosis for this admission?: Yes Plan: The above patient has failed BiPAP with a patent airway. This patient would benefit from noninvasive mechanical ventilation via the trilogy AVAPS/AE and faster responding AVAPS rates. The trilogy is able to provide a target tidal volume and also adjusting the EPAP pressures to maintain a patent airway as well as an oral backup rate this machine will help improve PaCO2 levels. The severity of the patient's condition will lead to future hospitalizations and readmissions as well as life-threatening situations without the use of this device day and night. Trilogy home vent needed for hypercapnic respiratory failure. [facility] or [facility] to follow for trilogy set up. (2) COPD exacerbation Is this a current diagnosis for this admission?: Yes Plan: Will switch BiPAP to a AVAP mode- VT 500/Rate 20/ EPAP 6/Max P 35/15/ 40% o2 Inpatient Scribe Statement - . Entered by Adalgisa Shaw, acting as scribe for .
--- NOTE | 2018-08-09 11:36 | PDOC PROGRESS REPORT ---
Subjective Progress Note for:: 08/09/18 Subjective:: Patient currently on BiPAP seems to be doing better than yesterday Reason For Visit: RESPIRATORY DISTRESS, COPD EXACERBATION, ESRD ON Physical Exam Vital Signs: Temp Pulse Resp BP Pulse Ox 97.5 F 75 18 132/49 H 95 08/09/18 07:14 08/09/18 07:55 08/09/18 07:55 08/09/18 07:14 08/09/18 07:55 Intake & Output 08/08/18 08/09/18 08/10/18 06:59 06:59 06:59 Intake Total 2550 42252 Output Total 1300 99413 Balance 1250 2010 Weight 93 kg 97.3 kg General appearance: PRESENT: no acute distress, well-developed, well-nourished Head exam: PRESENT: atraumatic, normocephalic Eye exam: PRESENT: conjunctiva pink, EOMI, PERRLA. ABSENT: scleral icterus Ear exam: PRESENT: normal external ear exam Mouth exam: PRESENT: moist, tongue midline Neck exam: ABSENT: carotid bruit, JVD, lymphadenopathy, thyromegaly Respiratory exam: PRESENT: clear to auscultation yair. ABSENT: rales, rhonchi, wheezes Cardiovascular exam: PRESENT: RRR. ABSENT: diastolic murmur, rubs, systolic murmur Pulses: PRESENT: normal dorsalis pedis pul GI/Abdominal exam: PRESENT: normal bowel sounds, soft. ABSENT: distended, guarding, mass, organolmegaly, rebound, tenderness Rectal exam: PRESENT: deferred Extremities exam: PRESENT: full ROM. ABSENT: calf tenderness, clubbing, pedal edema Neurological exam: PRESENT: alert, awake, oriented to person, oriented to place, oriented to time, oriented to situation, CN II-XII grossly intact. ABSENT: motor sensory deficit Psychiatric exam: PRESENT: appropriate affect, normal mood. ABSENT: homicidal ideation, suicidal ideation Skin exam: PRESENT: dry, intact, warm. ABSENT: cyanosis, rash Results Laboratory Results: 08/09/18 07:20 08/09/18 07:20 08/09/18 08/09/18 07:20 07:20 WBC 7.4 RBC 3.51 L Hgb 11.0 L Hct 33.7 L MCV 96 MCH 31.3 MCHC 32.6 RDW 15.9 H Plt Count 239 Seg Neutrophils % 87.5 H Lymphocytes % 7.1 L Monocytes % 5.2 Eosinophils % 0.0 Basophils % 0.2 Absolute Neutrophils 6.5 Absolute Lymphocytes 0.5 Absolute Monocytes 0.4 Absolute Eosinophils 0.0 Absolute Basophils 0.0 Sodium 138.2 Potassium 4.1 Chloride 95 L Carbon Dioxide 26 Anion Gap 17 BUN 46 H Creatinine 7.55 H Est GFR ( Amer) 9 L Est GFR (Non-Af Amer) 7 L Glucose 292 H Calcium 8.2 L Magnesium 1.8 08/07/18 08/07/18 08/07/18 22:45 22:45 22:45 Creatine Kinase 83 CK-MB (CK-2) 4.48 Troponin I 0.081 NT-Pro-B Natriuret Pep 43419 H Impressions: Chest X-Ray 08/07/18 22:45 IMPRESSION: Atelectasis or infiltrate in the right lung base with right pleural effusion. Findings may reflect pneumonia. Clinical correlation recommended Assessment & Plan - Diagnosis (1) Acute on chronic respiratory failure with hypoxia and hypercapnia Is this a current diagnosis for this admission?: Yes Plan: Continue to use BiPAP and AVAPS mode (2) COPD exacerbation Is this a current diagnosis for this admission?: Yes Plan: Will order trilogy for home use Inpatient Scribe Statement - . Entered by Adalgisa Shaw, acting as scribe for .
[2018-08-09] MEDS ORDERED: ESCITALOPRAM OXALATE 10 MG TABLET PO ONE (15:00)
--- NOTE | 2018-08-09 20:28 | PDOC PROGRESS REPORT ---
Subjective Progress Note for:: 08/09/18 Subjective:: The patient appears to be better today. He said his breathing is better although is not completely back to baseline yet. His peritoneal dialysis so far is going on okay without any much problems. However we are not getting much ultrafiltration with current PD regimen. Reason For Visit: RESPIRATORY DISTRESS, COPD EXACERBATION, ESRD ON Physical Exam Vital Signs: Temp Pulse Resp BP Pulse Ox 97.3 F 71 19 142/50 H 94 08/09/18 19:40 08/09/18 19:40 08/09/18 19:40 08/09/18 19:40 08/09/18 19:40 Pulse Oximeter Continuous Start: 08/09/18 09:40 Freq: RTQ4 Status: Active Protocol: Document 08/09/18 16:04 J (Rec: 08/09/18 16:13 J [id number]) Pulse Oximetry Assessment Oxygen Saturation (92-100) 98 Oxygen Delivery Method AVAP Fraction of Inspired Oxygen (FIO2) 30 Equipment Usage Equipment in Use Continuous SpO2 Machine # 11 Intake & Output 08/08/18 08/09/18 08/10/18 06:59 06:59 06:59 Intake Total 2550 48052 6231 Output Total 1300 25134 5000 Balance 1250 2011 1231 Weight 93 kg 97.3 kg 96.9 kg Exam: General appearance: PRESENT: no acute distress, cooperative, well-developed, well-nourished Head exam: PRESENT: atraumatic, normocephalic Eye exam: PRESENT: conjunctiva pink, PERRLA. ABSENT: scleral icterus Neck exam: ABSENT: JVD Respiratory exam: PRESENT: Normal breath sounds. Mild basal crackles ABSENT: Rhonchi, unlabored, wheezes Cardiovascular exam: PRESENT: Regular rate rhythm -+S1, +S2. ABSENT: diastolic murmur, systolic murmur GI/Abdominal exam: PRESENT: normal bowel sounds, soft. ABSENT: guarding, mass, tenderness Extremities exam: ABSENT: No edema Neurological exam: PRESENT: alert, awake, oriented to person, place and time. Skin exam: PRESENT: dry, warm, Results Laboratory Results: 08/09/18 07:20 08/09/18 07:20 08/09/18 08/09/18 07:20 07:20 WBC 7.4 RBC 3.51 L Hgb 11.0 L Hct 33.7 L MCV 96 MCH 31.3 MCHC 32.6 RDW 15.9 H Plt Count 239 Seg Neutrophils % 87.5 H Lymphocytes % 7.1 L Monocytes % 5.2 Eosinophils % 0.0 Basophils % 0.2 Absolute Neutrophils 6.5 Absolute Lymphocytes 0.5 Absolute Monocytes 0.4 Absolute Eosinophils 0.0 Absolute Basophils 0.0 Sodium 138.2 Potassium 4.1 Chloride 95 L Carbon Dioxide 26 Anion Gap 17 BUN 46 H Creatinine 7.55 H Est GFR ( Amer) 9 L Est GFR (Non-Af Amer) 7 L Glucose 292 H Calcium 8.2 L Magnesium 1.8 08/07/18 08/07/18 08/07/18 22:45 22:45 22:45 Creatine Kinase 83 CK-MB (CK-2) 4.48 Troponin I 0.081 NT-Pro-B Natriuret Pep 14393 H Impressions: Chest X-Ray 08/07/18 22:45 IMPRESSION: Atelectasis or infiltrate in the right lung base with right pleural effusion. Findings may reflect pneumonia. Clinical correlation recommended Assessment & Plan - Diagnosis (1) Acute on chronic respiratory failure with hypoxia and hypercapnia Is this a current diagnosis for this admission?: Yes Plan: Slowly improving. (2) COPD exacerbation Is this a current diagnosis for this admission?: Yes Plan: Defer to hospitalist. (3) End-stage renal disease on peritoneal dialysis Is this a current diagnosis for this admission?: Yes Plan: We will change the patient's CAPD regimen as follow: We will use 4.25% dialysis solution every third exchange. Continue everything else as ordered previously. I discussed this with the patient's nurse today. (4) Anemia in chronic kidney disease Is this a current diagnosis for this admission?: Yes (5) Hypertension Is this a current diagnosis for this admission?: Yes Plan: Fairly controlled. (6) Diabetes mellitus type 2 in obese Is this a current diagnosis for this admission?: Yes - Time Time with patient: 15-25 minutes
[2018-08-09] MEDS: ATORVASTATIN CALCIUM 80 MG TABLET PO SCH (22:21)
[2018-08-09] MEDS: DOXAZOSIN MESYLATE 2 MG TABLET PO SCH (22:21)
[2018-08-09] MEDS: INSULIN GLARGINE,HUM.REC.ANLOG 1,000 UNIT/10 ML VIAL SUBCUT SCH (22:21)
[2018-08-10] MEDS: LEVALBUTEROL HCL NEB 1.25 MG/3 ML AMPUL NEB SCH ×3 (00:29→16:23)
[2018-08-10] MEDS: IPRATROPIUM BROMIDE 0.02% NEB 0.5 MG/2.5 ML AMPUL NEB SCH ×3 (00:29→16:23)
[2018-08-10 05:28] LABS: HEMATOCRIT 32.3 % (37.9-51.0); HEMOGLOBIN 10.2 g/dL (13.5-17.0); MEAN CORPUSCULAR HEMOGLOBIN 30.8 pg (27.0-33.4); MEAN CORPUSCULAR HGB CONC 31.7 g/dL (32.0-36.0); MEAN CORPUSCULAR VOLUME 97 fl (80-97); PLATELET COUNT 277 10^3/uL (150-450); RED BLOOD COUNT 3.32 10^6/uL (4.35-5.55); RED CELL DISTRIBUTION WIDTH 16.2 % (11.5-14.0); WHITE BLOOD COUNT 8.2 10^3/uL (4.0-10.5)
[2018-08-10 05:48] LABS: ANION GAP 16 (5-19); BLOOD UREA NITROGEN 53 mg/dL (7-20); CALCIUM 7.6 mg/dL (8.4-10.2); CARBON DIOXIDE 25 mmol/L (22-30); CHLORIDE 96 mmol/L (98-107); POTASSIUM 3.6 mmol/L (3.6-5.0); SODIUM 137.2 mmol/L (137-145)
[2018-08-10 05:54] LABS: ABSOLUTE LYMPHOCYTES# (MANUAL) 0.7 10^3/uL (0.5-4.7); ABSOLUTE MONOCYTES # (MANUAL) 0.2 10^3/uL (0.1-1.4); ABSOLUTE NEUTROPHILS# (MANUAL) 7.2 10^3/uL (1.7-8.2); BASOPHILS % (MANUAL) 0 % (0-2); EOSINOPHILS % (MANUAL) 0 % (0-6); LYMPHOCYTES % (MANUAL) 9 % (13-45); MONOCYTES % (MANUAL) 3 % (3-13); SEGMENTED NEUTROPHILS % (MAN) 88 % (42-78); TOTAL CELLS COUNTED 100
[2018-08-10 05:56] LABS: TOXIC GRANULATION 1+
[2018-08-10 05:57] LABS: ANISOCYTOSIS 1+; HELMET CELLS SLIGHT; OVALOCYTES SLIGHT; PLATELET COMMENT ADEQUATE; POIKILOCYTOSIS 1+; TEAR DROP CELLS SLIGHT; TOXIC VACUOLATION PRESENT
[2018-08-10 06:08] LABS: ARTERIAL BLOOD BASE EXCESS 2.6 mmol/L; ARTERIAL BLOOD H2CO3 1.42 mmol/L (1.05-1.35); ARTERIAL BLOOD HCO3 28.1 mmol/L (20-24); ARTERIAL BLOOD O2 SATURATION 94.6 % (94-98); ARTERIAL BLOOD PCO2 47.2 mmHg (35-45); ARTERIAL BLOOD PH 7.39 (7.35-7.45); ARTERIAL BLOOD PO2 73.6 mmHg (80-100); ARTERIAL BLOOD TOTAL CO2 29.6 mmol/L (23-27)
[2018-08-10 06:09] LABS: GLUCOSE 454 mg/dL (75-110)
[2018-08-10 06:12] LABS: ARTERIAL BLOOD FIO2 25%
[2018-08-10] MEDS: INSULIN REG, HUMAN 100 UNIT/ML 3 ML VIAL (PYX) SUBCUT PRN ×5 (06:14→21:56)
[2018-08-10] MEDS: HEPARIN SOD (PORCINE) 5,000 UNIT/ML 1 ML SYRINGE SUBCUT SCH ×3 (06:15→21:56)
[2018-08-10] MEDS: PANTOPRAZOLE SODIUM 40 MG TABLET.DR PO SCH ×2 (06:15→17:03)
[2018-08-10] MEDS: BUDESONIDE NEB 0.5 MG/2 ML AMPUL NEB SCH ×2 (08:04→20:33)
[2018-08-10] MEDS: FOLIC ACID/VITAMIN B COMP W-C CAPSULE PO SCH (09:46)
[2018-08-10] MEDS: FINASTERIDE 5 MG TABLET PO SCH (09:46)
[2018-08-10] MEDS: DOCUSATE SODIUM 100 MG CAPSULE PO SCH ×2 (09:46→17:03)
[2018-08-10] MEDS: ASPIRIN 81 MG TABLET, ENT COATED PO SCH (09:46)
[2018-08-10] MEDS: MAGNESIUM OXIDE 400 MG TABLET PO SCH ×2 (09:46→17:03)
[2018-08-10] MEDS: CARVEDILOL 12.5 MG TABLET PO SCH ×2 (09:46→21:55)
[2018-08-10] MEDS: ESCITALOPRAM OXALATE 10 MG TABLET PO SCH (09:46)
[2018-08-10] MEDS: ISOSORBIDE MONONITRATE 30 MG TAB.ER.24H PO SCH (09:47)
[2018-08-10] MEDS: CEFTRIAXONE 2 GM/D5W RTU 2 GM/50 ML RTUPB IV SCH (09:47)
[2018-08-10] MEDS: GENTAMICIN SULFATE 0.1% CREAM 15 GM TP SCH (09:47)
--- NOTE | 2018-08-10 10:04 | PDOC PROGRESS REPORT ---
Subjective Progress Note for:: 08/10/18 Subjective:: 67 year old male who presented to the emergency room complaining of dyspnea. Patient admits for the last several days he has experienced gradually worsening dyspnea accompanied by a cough productive of clear sputum, progressively worsening fatigue, generalized weakness and decreased appetite. He further admits that his symptoms greatly escalated on 08/07/2018 becoming severe and necessitating a trip to the emergency room. He tried treating himself at home by increasing his O2 from 3 L/min to 5 or 6 L/min and using additional breathing treatments all without substantial relief. He has not identified any aggravating or ameliorating factors for his dyspnea but has numerous prior similar episodes related to his COPD and CHF. In the emergency room he was fou nd to be significantly hypoxic and hypercapnic requiring treatment with BiPAP. His CBC was normal. His chest x-ray revealed a right pleural effusion. His BNP was elevated. With these findings the patient was admitted to hospital for further evaluation treatment. 08/08/2018-no acute events since the admission. Comfortably in the bed. Nurses are about to start peritoneal dialysis. Patient denies any complaints. Presently on BiPAP. Chest x-ray indicates possible right base pneumonia. 08/09/2018-patient is still on BiPAP. No problems with the peritoneal dialysis. Communicating well. Pulse ox is 99 % on 35% oxygen. Chest x-ray shows questionable right lower lobe pneumonia presently on Rocephin on levo floxacillin. Patient is stable he may go back to home tomorrow. 08/10/2018-patient is on BiPAP at the time of examination. Uses 3 L of oxygen at home. Requested nurse to put him on 3 L oxygen and to check his pulse ox. Acute events in the last 24 hours. He is on peritoneal dialysis no issues there either. Reason For Visit: RESPIRATORY DISTRESS, COPD EXACERBATION, ESRD ON Physical Exam Vital Signs: Temp Pulse Resp BP Pulse Ox 97.4 F 62 14 178/54 H 100 08/10/18 08:27 08/10/18 08:27 08/10/18 08:27 08/10/18 08:27 08/10/18 08:27 Pulse Oximeter Continuous Start: 08/09/18 09:40 Freq: RTQ4 Status: Active Protocol: Document 08/10/18 08:04 HCR (Rec: 08/10/18 08:23 HCR [id number]) Pulse Oximetry Assessment Oxygen Saturation (92-100) 97 Oxygen Flow Rate (L/min) 4 Oxygen Delivery Method Nasal Cannula Equipment Usage Equipment Standby Continuous SpO2 Machine # 11 Intake & Output 08/09/18 08/10/18 08/11/18 06:59 06:59 06:59 Intake Total 33736 32182 2500 Output Total 07977 9800 2600 Balance 2010 1431 -100 Weight 97.3 kg 99.5 kg 95.5 kg General appearance: PRESENT: no acute distress, obese Head exam: PRESENT: atraumatic Eye exam: PRESENT: PERRLA Ear exam: PRESENT: normal external ear exam Mouth exam: PRESENT: moist, tongue midline Teeth exam: PRESENT: poor dentation Neck exam: ABSENT: carotid bruit, JVD, lymphadenopathy, thyromegaly Respiratory exam: PRESENT: decreased breath sounds Cardiovascular exam: PRESENT: tachycardia GI/Abdominal exam: PRESENT: normal bowel sounds, soft. ABSENT: distended, guarding, mass, organolmegaly, rebound, tenderness Rectal exam: PRESENT: deferred Extremities exam: PRESENT: full ROM. ABSENT: calf tenderness, clubbing, pedal edema Neurological exam: PRESENT: alert, awake, oriented to person, oriented to place, oriented to time, oriented to situation, CN II-XII grossly intact. ABSENT: motor sensory deficit Psychiatric exam: PRESENT: appropriate affect, normal mood. ABSENT: homicidal ideation, suicidal ideation Results Laboratory Results: 08/10/18 05:00 08/10/18 05:00 08/10/18 08/10/18 08/10/18 05:00 05:00 05:58 WBC 8.2 RBC 3.32 L Hgb 10.2 L Hct 32.3 L MCV 97 MCH 30.8 MCHC 31.7 L RDW 16.2 H Plt Count 277 Seg Neutrophils % Not Reportable Lymphocytes % Not Reportable Monocytes % Not Reportable Eosinophils % Not Reportable Basophils % Not Reportable Absolute Neutrophils Not Reportable Absolute Lymphocytes Not Reportable Absolute Monocytes Not Reportable Absolute Eosinophils Not Reportable Absolute Basophils Not Reportable Carbonic Acid 1.42 H HCO3/H2CO3 Ratio 19:1 ABG pH 7.39 ABG pCO2 47.2 H ABG pO2 73.6 L ABG HCO3 28.1 H ABG O2 Saturation 94.6 ABG Base Excess 2.6 FiO2 25% Sodium 137.2 Potassium 3.6 Chloride 96 L Carbon Dioxide 25 Anion Gap 16 BUN 53 H Creatinine 6.79 H Est GFR ( Amer) 10 L Est GFR (Non-Af Amer) 8 L Glucose 454 H* Calcium 7.6 L Magnesium 1.7 08/07/18 08/07/18 08/07/18 22:45 22:45 22:45 Creatine Kinase 83 CK-MB (CK-2) 4.48 Troponin I 0.081 NT-Pro-B Natriuret Pep 12822 H Impressions: Chest X-Ray 08/07/18 22:45 IMPRESSION: Atelectasis or infiltrate in the right lung base with right pleural effusion. Findings may reflect pneumonia. Clinical correlation recommended Assessment and Plan - Diagnosis (1) Acute on chronic respiratory failure with hypoxia and hypercapnia Is this a current diagnosis for this admission?: Yes Plan: Patient will be treated with BiPAP and other interventions as required to supplement him and maintain adequate tissue oxygenation and respiration of CO2 during his acute phase of COPD exacerbation. Eventually it is hoped to return him to his baseline of 3 L of oxygen per minute via nasal cannula continuously a t home. Arterial or venous blood gases will be obtained as needed. 08/[id number]-qgue-old with multiple medical problems including COPD, end-stage renal disease on peritoneal dialysis admitted with acute on chronic respiratory failure with hypoxia and hypercapnia he is presently on BiPAP. On 4 L with 40% oxygen pulse ox is 100%. Patient is in mild distress in the bed on BiPAP at the time of examination. Chest x-ray suggestive of pneumonia in the right base. And is to continue the BiPAP on as-needed basis, continue nebulizations on as- needed basis. 08/09/[id number]-ffla-old male with history of COPD and end-stage renal disease on peritoneal dialysis admitted for acute on chronic respiratory failure with hypoxia and hypercapnia requiring BiPAP due to COPD exacerbation. Oxygen requirements are improving. Patient is on 3 L of oxygen at home. If we can wean him off on BiPAP today probably can go home tomorrow. Chest x-ray shows questionable right-sided pneumonia most likely community-acquired presently on Rocephin and levofloxacillin. 08/[id number]-aacd-old male with history of COPD on 3 L oxygen at home admitted for acute on chronic respiratory failure with hypoxia and hypercapnia. Pulse ox is 96% on 25% oxygen. Plan is to continue the present management today on examination chest bilateral it was decreased no wheezing no crepitation. IV Solu-Medrol is discontinued today. X-ray suggestive right-sided pneumonia is getting IV Rocephin and levofloxacin. (2) COPD exacerbation Is this a current diagnosis for this admission?: Yes Plan: Patient be treated aggressively with a pulmonary toilet utilizing Xopenex, Pulmicort and Atrovent via nebulizer with intravenous Solu-Medrol and supplemental oxygen as well as noninvasive airway pressure devices and even intubation if necessary. A pulmonary medicine consultation may be obtained. Daily CBCs will be obtained. 08/08/2018-patient admitted for COPD exacerbation presently on Xopenex, Pulmicort, Atrovent. Patient is also on BiPAP. He is also receiving IV Solu- Medrol at this point. 08/09/[id number]-cthd-old male admitted with COPD exacerbation presently on Xopenex, Pulmicort and Atrovent nebulizations. He is still on BiPAP at 35% oxygen. Oxygen requirements are improving. Plan is to continue the present management. 08/[id number]-lcdn-old male admitted for COPD exacerbation presently on Xopenex, Pulmicort, Atrovent nebulizations IV Solu-Medrol is discontinued from today. (3) ESRD (end stage renal disease) Is this a current diagnosis for this admission?: No Plan: 08/08/2018-patient has a history of end-stage renal disease on peritoneal dialysis. Consult with Dr. Sams is requested. 08/10/2018-patient is on peritoneal dialysis tolerating the procedure very well creatinine is 6.8 today potassium is 3.6. And is to continue the peritoneal dialysis during the hospital stay. (4) Anemia in chronic kidney disease Is this a current diagnosis for this admission?: Yes Plan: 08/08/2018-patient's hemoglobin is 11.8 anemia of chronic disease most likely secondary to end-stage renal disease. 2018-patient's hemoglobin is 10.2. Anemia of chronic disease most likely secondary to end-stage renal disease. (5) Pneumonia Is this a current diagnosis for this admission?: Yes Plan: 08/09/2018-patient chest x-ray indicates questionable right-sided pneumonia cultures are negative so far presently on IV Rocephin and levo floxacillin. M ost likely community acquired pneumonia and may be gram-positive organisms are responsible. (6) Hypertension Is this a current diagnosis for this admission?: Yes Plan: 08/09/2018-patient has history of chronic essential hypertension blood pressure today is 143/60 stable. 08/10/2018-blood pressure today is 146/60. Stable. Plan is to continue the present management. (7) Diabetes Qualifiers: Diabetes mellitus type: type 2 Is this a current diagnosis for this admission?: No Plan: 08/10/2018-patient has type 2 diabetes mellitus on Lantus 80 units at bedtime and also on insulin sliding scale blood sugar this morning is 410. To discontinue IV Solu-Medrol and continue the present insulin regimen. Dietary consult was requested compliant with medications diet exercise weight loss discussed with the patient. - Time Time Spent with patient: 25-34 minutes Medications reviewed and adjusted accordingly: Yes Anticipated discharge: Home
[2018-08-10] MEDS: LEVOFLOXACIN 500 MG/D5W RTU 500 MG/100 ML RTUPB IV SCH (11:37)
[2018-08-10] MEDS ORDERED: HEPARIN SOD (PORCINE) 1,000 UNIT/ML 10 ML VIAL IV PRN (14:30)
[2018-08-10] MEDS: DOXAZOSIN MESYLATE 2 MG TABLET PO SCH (21:55)
[2018-08-10] MEDS: ATORVASTATIN CALCIUM 80 MG TABLET PO SCH (21:55)
[2018-08-10] MEDS: INSULIN GLARGINE,HUM.REC.ANLOG 1,000 UNIT/10 ML VIAL SUBCUT SCH (21:55)
[2018-08-11] MEDS: IPRATROPIUM BROMIDE 0.02% NEB 0.5 MG/2.5 ML AMPUL NEB SCH ×3 (00:28→15:47)
[2018-08-11] MEDS: LEVALBUTEROL HCL NEB 1.25 MG/3 ML AMPUL NEB SCH ×3 (00:28→15:47)
[2018-08-11 05:05] LABS: ABSOLUTE BASOPHILS # (AUTO) 0.1 10^3/uL (0.0-0.2); ABSOLUTE LYMPHOCYTES (AUTO) 1.4 10^3/uL (0.5-4.7); ABSOLUTE MONOCYTES (AUTO) 0.8 10^3/uL (0.1-1.4); ABSOLUTE NEUT (AUTO) 6.5 10^3/uL (1.7-8.2); BASOPHILS % (AUTO) 0.9 % (0-2); EOSINOPHILS % (AUTO) 0.4 % (0-6); HEMATOCRIT 30.1 % (37.9-51.0); LYMPHOCYTES % (AUTO) 15.9 % (13-45); MEAN CORPUSCULAR HEMOGLOBIN 31.4 pg (27.0-33.4); MEAN CORPUSCULAR HGB CONC 33.1 g/dL (32.0-36.0); MEAN CORPUSCULAR VOLUME 95 fl (80-97); MONOCYTES % (AUTO) 8.8 % (3-13); PLATELET COUNT 267 10^3/uL (150-450); RED BLOOD COUNT 3.17 10^6/uL (4.35-5.55); RED CELL DISTRIBUTION WIDTH 15.8 % (11.5-14.0); TOTAL CELLS COUNTED % (AUTO) 100 %; WHITE BLOOD COUNT 8.8 10^3/uL (4.0-10.5)
[2018-08-11 05:29] LABS: ALANINE AMINOTRANSFERASE 21 U/L (21-72); ALBUMIN 2.8 g/dL (3.5-5.0); ALKALINE PHOSPHATASE 159 U/L (38-126); ANION GAP 13 (5-19); ASPARTATE AMINO TRANSFERASE 15 U/L (17-59); BILIRUBIN,DIRECT 0.3 mg/dL (0.0-0.4); BILIRUBIN,TOTAL 0.3 mg/dL (0.2-1.3); BLOOD UREA NITROGEN 58 mg/dL (7-20); CALCIUM 7.4 mg/dL (8.4-10.2); CARBON DIOXIDE 28 mmol/L (22-30); CHLORIDE 98 mmol/L (98-107); GLUCOSE 256 mg/dL (75-110); POTASSIUM 3.2 mmol/L (3.6-5.0); SODIUM 138.9 mmol/L (137-145); TOTAL PROTEIN 5.8 g/dL (6.3-8.2)
[2018-08-11] MEDS: HEPARIN SOD (PORCINE) 5,000 UNIT/ML 1 ML SYRINGE SUBCUT SCH ×3 (05:57→22:29)
[2018-08-11] MEDS: PANTOPRAZOLE SODIUM 40 MG TABLET.DR PO SCH ×2 (05:58→17:59)
[2018-08-11] MEDS: BUDESONIDE NEB 0.5 MG/2 ML AMPUL NEB SCH ×2 (08:32→20:49)
[2018-08-11] MEDS: INSULIN REG, HUMAN 100 UNIT/ML 3 ML VIAL (PYX) SUBCUT PRN (08:43)
[2018-08-11] MEDS: MAGNESIUM OXIDE 400 MG TABLET PO SCH ×2 (10:48→17:59)
[2018-08-11] MEDS: FINASTERIDE 5 MG TABLET PO SCH (10:48)
[2018-08-11] MEDS: DOCUSATE SODIUM 100 MG CAPSULE PO SCH ×2 (10:49→17:59)
[2018-08-11] MEDS: CARVEDILOL 12.5 MG TABLET PO SCH ×2 (10:49→22:29)
[2018-08-11] MEDS: FOLIC ACID/VITAMIN B COMP W-C CAPSULE PO SCH (10:49)
[2018-08-11] MEDS: ESCITALOPRAM OXALATE 10 MG TABLET PO SCH (10:49)
[2018-08-11] MEDS: ISOSORBIDE MONONITRATE 30 MG TAB.ER.24H PO SCH (10:49)
[2018-08-11] MEDS: ASPIRIN 81 MG TABLET, ENT COATED PO SCH (10:49)
[2018-08-11] MEDS: CEFTRIAXONE 2 GM/D5W RTU 2 GM/50 ML RTUPB IV SCH (10:50)
[2018-08-11] MEDS: GENTAMICIN SULFATE 0.1% CREAM 15 GM TP SCH (10:50)
--- NOTE | 2018-08-11 11:47 | PDOC PROGRESS REPORT ---
Subjective Progress Note for:: 08/11/18 Subjective:: 67 year old male who presented to the emergency room complaining of dyspnea. Patient admits for the last several days he has experienced gradually worsening dyspnea accompanied by a cough productive of clear sputum, progressively worsening fatigue, generalized weakness and decreased appetite. He further admits that his symptoms greatly escalated on 08/07/2018 becoming severe and necessitating a trip to the emergency room. He tried treating himself at home by increasing his O2 from 3 L/min to 5 or 6 L/min and using additional breathing treatments all without substantial relief. He has not identified any aggravating or ameliorating factors for his dyspnea but has numerous prior similar episodes related to his COPD and CHF. In the emergency room he was fou nd to be significantly hypoxic and hypercapnic requiring treatment with BiPAP. His CBC was normal. His chest x-ray revealed a right pleural effusion. His BNP was elevated. With these findings the patient was admitted to hospital for further evaluation treatment. 08/08/2018-no acute events since the admission. Comfortably in the bed. Nurses are about to start peritoneal dialysis. Patient denies any complaints. Presently on BiPAP. Chest x-ray indicates possible right base pneumonia. 08/09/2018-patient is still on BiPAP. No problems with the peritoneal dialysis. Communicating well. Pulse ox is 99 % on 35% oxygen. Chest x-ray shows questionable right lower lobe pneumonia presently on Rocephin on levo floxacillin. Patient is stable he may go back to home tomorrow. 08/10/2018-patient is on BiPAP at the time of examination. Uses 3 L of oxygen at home. Requested nurse to put him on 3 L oxygen and to check his pulse ox. Acute events in the last 24 hours. He is on peritoneal dialysis no issues there either. 08/11/2018-patient is off the BiPAP. Patient may need to go home on CPAP. Pulse ox is 93% on 3 L. Getting antibiotics for questionable right lower lobe pneumonia. No acute events in the last 24 hours. Patient is afebrile. Reason For Visit: RESPIRATORY DISTRESS, COPD EXACERBATION, ESRD ON Physical Exam Vital Signs: Temp Pulse Resp BP Pulse Ox 97.6 F 85 21 H 145/39 H 97 08/11/18 07:25 08/11/18 08:32 08/11/18 08:32 08/11/18 07:52 08/11/18 08:32 Pulse Oximeter Continuous Start: 08/09/18 09:40 Freq: RTQ4 Status: Active Protocol: Document 08/11/18 08:32 HCR (Rec: 08/11/18 10:50 HCR [email or web address]) Pulse Oximetry Assessment Oxygen Saturation (92-100) 97 Oxygen Delivery Method Bi-pap Equipment Usage Equipment in Use Continuous SpO2 Machine # 11 Intake & Output 08/10/18 08/11/18 08/12/18 06:59 06:59 06:59 Intake Total 28274 82490 2500 Output Total 9800 9650 2700 Balance 1431 1080 -200 Weight 99.5 kg 101.2 kg 97.9 kg Results Laboratory Results: 08/11/18 04:51 08/11/18 04:51 08/11/18 08/11/18 04:51 04:51 WBC 8.8 RBC 3.17 L Hgb 10.0 L Hct 30.1 L MCV 95 MCH 31.4 MCHC 33.1 RDW 15.8 H Plt Count 267 Seg Neutrophils % 74.0 Lymphocytes % 15.9 Monocytes % 8.8 Eosinophils % 0.4 Basophils % 0.9 Absolute Neutrophils 6.5 Absolute Lymphocytes 1.4 Absolute Monocytes 0.8 Absolute Eosinophils 0.0 Absolute Basophils 0.1 Sodium 138.9 Potassium 3.2 L Chloride 98 Carbon Dioxide 28 Anion Gap 13 BUN 58 H Creatinine 6.37 H Est GFR ( Amer) 11 L Est GFR (Non-Af Amer) 9 L Glucose 256 H Calcium 7.4 L Magnesium 1.6 Total Bilirubin 0.3 AST 15 L ALT 21 Alkaline Phosphatase 159 H Total Protein 5.8 L Albumin 2.8 L 08/07/18 08/07/18 08/07/18 22:45 22:45 22:45 Creatine Kinase 83 CK-MB (CK-2) 4.48 Troponin I 0.081 NT-Pro-B Natriuret Pep 30094 H Impressions: Chest X-Ray 08/07/18 22:45 IMPRESSION: Atelectasis or infiltrate in the right lung base with right pleural effusion. Findings may reflect pneumonia. Clinical correlation recommended Assessment and Plan - Diagnosis (1) Acute on chronic respiratory failure with hypoxia and hypercapnia Is this a current diagnosis for this admission?: Yes (2) COPD exacerbation Is this a current diagnosis for this admission?: Yes Plan: Patient be treated aggressively with a pulmonary toilet utilizing Xopenex, Pulmicort and Atrovent via nebulizer with intravenous Solu-Medrol and supplemental oxygen as well as noninvasive airway pressure devices and even intubation if necessary. A pulmonary medicine consultation may be obtained. Daily CBCs will be obtained. 08/08/2018-patient admitted for COPD exacerbation presently on Xopenex, Pulmicort, Atrovent. Patient is also on BiPAP. He is also receiving IV Solu- Medrol at this point. 08/09/[id number]-zatt-old male admitted with COPD exacerbation presently on Xopenex, Pulmicort and Atrovent nebulizations. He is still on BiPAP at 35% oxygen. Oxygen requirements are improving. Plan is to continue the present management. 08/10/[id number]-kjak-old male admitted for COPD exacerbation presently on Xopenex, Pulmicort, Atrovent nebulizations IV Solu-Medrol is discontinued from today. 08/11/2018-patient history of COPD admitted for COPD exacerbation presently on Xopenex, Pulmicort, Atrovent nebulizations. (3) ESRD (end stage renal disease) Is this a current diagnosis for this admission?: No Plan: 08/08/2018-patient has a history of end-stage renal disease on peritoneal dialysis. Consult with Dr. Sams is requested. 08/10/2018-patient is on peritoneal dialysis tolerating the procedure very well creatinine is 6.8 today potassium is 3.6. And is to continue the peritoneal dialysis during the hospital stay. 08/11/2018-patient has end-stage renal disease on peritoneal dialysis fluctuating fluid drainage. [facility] is following the patient. 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 (4) Anemia in chronic kidney disease Is this a current diagnosis for this admission?: Yes Plan: 08/08/2018-patient's hemoglobin is 11.8 anemia of chronic disease most likely sec ondary to end-stage renal disease. 08/10/2018-patient's hemoglobin is 10.2. Anemia of chronic disease most likely secondary to end-stage renal disease. 08/11/2018-patient's hemoglobin is around 10. Stable. Anemia of the chronic disease most likely secondary to end-stage renal disease. (5) Pneumonia Is this a current diagnosis for this admission?: Yes Plan: 08/09/2018-patient chest x-ray indicates questionable right-sided pneumonia cultures are negative so far presently on IV Rocephin and levo floxacillin. Most likely community acquired pneumonia and may be gram-positive organisms are responsible. 08/11/2018-patient is getting IV Rocephin and IV levofloxacin for right-sided pneumonia. Afebrile. (6) Hypertension Is this a current diagnosis for this admission?: Yes Plan: 08/09/2018-patient has history of chronic essential hypertension blood pressure today is 143/60 stable. 08/10/2018-blood pressure today is 146/60. Stable. Plan is to continue the present management. 08/11/2018-patient blood pressure today is 145/40. Stable. Plan is to continue the present management. (7) Diabetes Qualifiers: Diabetes mellitus type: type 2 Is this a current diagnosis for this admission?: No Plan: 08/10/2018-patient has type 2 diabetes mellitus on Lantus 80 units at bedtime and also on insulin sliding scale blood sugar this morning is 410. To discontinue I V Solu-Medrol and continue the present insulin regimen. Dietary consult was requested compliant with medications diet exercise weight loss discussed with the patient. 08/11/2018-patient's blood sugar is 237 improved from yesterday on Lantus 8 units at bedtime also insulin sliding scale. hemoglobin A1c 7.5. - Time Time Spent with patient: 25-34 minutes Medications reviewed and adjusted accordingly: Yes Anticipated discharge: Home
[2018-08-11] MEDS: INSULIN REG, HUMAN 100 UNIT/ML 3 ML VIAL (PYX) SUBCUT SCH ×3 (12:35→22:34)
[2018-08-11] MEDS: DOXAZOSIN MESYLATE 2 MG TABLET PO SCH (22:28)
[2018-08-11] MEDS: ATORVASTATIN CALCIUM 80 MG TABLET PO SCH (22:28)
[2018-08-11] MEDS: INSULIN GLARGINE,HUM.REC.ANLOG 1,000 UNIT/10 ML VIAL SUBCUT SCH (22:29)
[2018-08-12] MEDS: LEVALBUTEROL HCL NEB 1.25 MG/3 ML AMPUL NEB SCH ×2 (00:35→07:50)
[2018-08-12] MEDS: IPRATROPIUM BROMIDE 0.02% NEB 0.5 MG/2.5 ML AMPUL NEB SCH ×2 (00:35→07:50)
[2018-08-12] MEDS: HEPARIN SOD (PORCINE) 5,000 UNIT/ML 1 ML SYRINGE SUBCUT SCH ×2 (06:22→13:30)
[2018-08-12] MEDS: PANTOPRAZOLE SODIUM 40 MG TABLET.DR PO SCH (06:22)
[2018-08-12] MEDS: INSULIN REG, HUMAN 100 UNIT/ML 3 ML VIAL (PYX) SUBCUT SCH ×2 (07:35→11:59)
[2018-08-12] MEDS: BUDESONIDE NEB 0.5 MG/2 ML AMPUL NEB SCH (07:50)
[2018-08-12 08:50] LABS: HEMATOCRIT 32.7 % (37.9-51.0); HEMOGLOBIN 10.6 g/dL (13.5-17.0); MEAN CORPUSCULAR HEMOGLOBIN 30.9 pg (27.0-33.4); MEAN CORPUSCULAR HGB CONC 32.4 g/dL (32.0-36.0); MEAN CORPUSCULAR VOLUME 95 fl (80-97); PLATELET COUNT 282 10^3/uL (150-450); RED BLOOD COUNT 3.44 10^6/uL (4.35-5.55); RED CELL DISTRIBUTION WIDTH 15.9 % (11.5-14.0)
[2018-08-12] MEDS: ISOSORBIDE MONONITRATE 30 MG TAB.ER.24H PO SCH (09:09)
[2018-08-12] MEDS: ASPIRIN 81 MG TABLET, ENT COATED PO SCH (09:09)
[2018-08-12] MEDS: FOLIC ACID/VITAMIN B COMP W-C CAPSULE PO SCH (09:09)
[2018-08-12] MEDS: FINASTERIDE 5 MG TABLET PO SCH (09:09)
[2018-08-12] MEDS: MAGNESIUM OXIDE 400 MG TABLET PO SCH (09:09)
[2018-08-12] MEDS: DOCUSATE SODIUM 100 MG CAPSULE PO SCH (09:09)
[2018-08-12] MEDS: CARVEDILOL 12.5 MG TABLET PO SCH (09:09)
[2018-08-12] MEDS: ESCITALOPRAM OXALATE 10 MG TABLET PO SCH (09:09)
[2018-08-12] MEDS: CEFTRIAXONE 2 GM/D5W RTU 2 GM/50 ML RTUPB IV SCH (09:10)
[2018-08-12] MEDS: GENTAMICIN SULFATE 0.1% CREAM 15 GM TP SCH (09:10)
[2018-08-12 09:13] LABS: ABSOLUTE LYMPHOCYTES# (MANUAL) 1.2 10^3/uL (0.5-4.7); ABSOLUTE MONOCYTES # (MANUAL) 0.2 10^3/uL (0.1-1.4); BASOPHILS % (MANUAL) 0 % (0-2); EOSINOPHILS % (MANUAL) 6 % (0-6); LYMPHOCYTES % (MANUAL) 12 % (13-45); MONOCYTES % (MANUAL) 2 % (3-13); SEGMENTED NEUTROPHILS % (MAN) 80 % (42-78); TOTAL CELLS COUNTED 100
[2018-08-12 09:15] LABS: ALANINE AMINOTRANSFERASE 20 U/L (21-72); ALBUMIN 3.1 g/dL (3.5-5.0); ALKALINE PHOSPHATASE 203 U/L (38-126); ANION GAP 13 (5-19); ASPARTATE AMINO TRANSFERASE 20 U/L (17-59); BILIRUBIN,DIRECT 0.3 mg/dL (0.0-0.4); BILIRUBIN,TOTAL 0.3 mg/dL (0.2-1.3); BLOOD UREA NITROGEN 54 mg/dL (7-20); CALCIUM 7.7 mg/dL (8.4-10.2); CARBON DIOXIDE 27 mmol/L (22-30); CHLORIDE 100 mmol/L (98-107); GLUCOSE 278 mg/dL (75-110); POTASSIUM 3.6 mmol/L (3.6-5.0); SODIUM 139.7 mmol/L (137-145); TOTAL PROTEIN 6.4 g/dL (6.3-8.2)
[2018-08-12 09:18] LABS: ANISOCYTOSIS SLIGHT; OVALOCYTES SLIGHT; TOXIC GRANULATION 1+; TOXIC VACUOLATION PRESENT
[2018-08-12 09:19] LABS: PLATELET CLUMPS PRESENT; PLATELET COMMENT ADEQUATE
--- NOTE | 2018-08-12 10:58 | RADIOLOGY REPORT (SQ) ---
EXAM DESCRIPTION: CHEST 2 VIEWS COMPLETED DATE/TIME: 08/12/2018 10:08 am REASON FOR STUDY: pneumonia COMPARISON: 08/07/2018. EXAM PARAMETERS: NUMBER OF VIEWS: two views TECHNIQUE: Digital Frontal and Lateral radiographic views of the chest acquired. RADIATION DOSE: NA LIMITATIONS: none FINDINGS: LUNGS AND PLEURA: Stable mild elevation of the right hemidiaphragm. Diffuse interstitial prominence, particularly in the lower lobes. Minimal density in the right lung base with small pleur al effusion unchanged. MEDIASTINUM AND HILAR STRUCTURES: No masses or contour abnormalities. HEART AND VASCULAR STRUCTURES: Heart upper limits of normal size. No evidence for failure. BONES: No acute findings. HARDWARE: None in the chest. OTHER: No other significant finding. IMPRESSION: NO SIGNIFICANT INTERVAL CHANGE. TECHNICAL DOCUMENTATION: JOB ID: [id number] [employer]- All Rights Reserved Reading location - IP/workstation name: [email or web address]
[2018-08-12] MEDS: LEVOFLOXACIN 500 MG/D5W RTU 500 MG/100 ML RTUPB IV SCH (11:19)
--- NOTE | 2018-08-12 12:18 | PDOC PROGRESS REPORT ---
Subjective Progress Note for:: 08/12/18 Reason For Visit: Patient was admitted for acute respiratory distress secondary to COPD exacerbation patient is doing much better. He denies any history of chest pains, coughing, fever or chills. PD is going very well. Fluids are being removed adequately. Dialysis orders were reviewed with the treating dialysis nurse. Labs and medications were reviewed. Physical Exam Vital Signs: Temp Pulse Resp BP Pulse Ox 97.9 F 72 21 H 142/112 H 99 08/12/18 08:11 08/12/18 08:11 08/12/18 08:11 08/12/18 08:11 08/12/18 08:11 Pulse Oximeter Continuous Start: 08/09/18 09 :40 Freq: RTQ4 Status: Active Protocol: Document 08/12/18 07:50 HCR (Rec: 08/12/18 10:32 HCR [email or web address]) Pulse Oximetry Assessment Oxygen Saturation (92-100) 95 Oxygen Delivery Method AVAP Fraction of Inspired Oxygen (FIO2) 25 Equipment Usage Equipment in Use Continuous SpO2 Machine # 11 Intake & Output 08/11/18 08/12/18 08/13/18 06:59 06:59 06:59 Intake Total 91328 88547 2550 Output Total 9650 69586 3000 Balance 3046 -379 -450 Weight 101.2 kg 100 kg 97.4 kg General appearance: PRESENT: no acute distress Respiratory exam: PRESENT: clear to auscultation yair, decreased breath sounds. ABSENT: crackles Cardiovascular exam: PRESENT: +S1, +S2 GI/Abdominal exam: PRESENT: normal bowel sounds, soft. ABSENT: organomegaly, tenderness Extremities exam: ABSENT: pedal edema Neurological exam: PRESENT: alert, awake, oriented to person, oriented to place Psychiatric exam: PRESENT: appropriate affect Results Laboratory Results: 08/12/18 08:28 08/12/18 08:28 08/12/18 08/12/18 08:28 08:28 WBC 10.0 RBC 3.44 L Hgb 10.6 L Hct 32.7 L MCV 95 MCH 30.9 MCHC 32.4 RDW 15.9 H Plt Count 282 Seg Neutrophils % Not Reportable Lymphocytes % Not Reportable Monocytes % Not Reportable Eosinophils % Not Reportable Basophils % Not Reportable Absolute Neutrophils Not Reportable Absolute Lymphocytes Not Reportable Absolute Monocytes Not Reportable Absolute Eosinophils Not Reportable Absolute Basophils Not Reportable Sodium 139.7 Potassium 3.6 Chloride 100 Carbon Dioxide 27 Anion Gap 13 BUN 54 H Creatinine 6.11 H Est GFR ( Amer) 11 L Est GFR (Non-Af Amer) 9 L Glucose 278 H Calcium 7.7 L Magnesium 1.6 Total Bilirubin 0.3 AST 20 ALT 20 L Alkaline Phosphatase 203 H Total Protein 6.4 Albumin 3.1 L 08/07/18 08/07/18 08/07/18 22:45 22:45 22:45 Creatine Kinase 83 CK-MB (CK-2) 4.48 Troponin I 0.081 NT-Pro-B Natriuret Pep 87009 H Impressions: Chest X-Ray 08/12/18 00:00 IMPRESSION: NO SIGNIFICANT INTERVAL CHANGE. Assessment & Plan - Diagnosis (1) Acute on chronic respiratory failure with hypoxia and hypercapnia Is this a current diagnosis for this admission?: Yes Plan: Much improved. Further management as per hospitalist. (2) COPD exacerbation Is this a current diagnosis for this admission?: Yes Plan: Much improved and patient feels almost back to baseline. He believes he is going to get a CPAP prior to going home. Advised him to discuss with hospitalist. (3) Diabetes Qualifiers: Diabetes mellitus type: type 2 Is this a current diagnosis for this admission?: No Plan: Advised tight control. (4) End-stage renal disease on peritoneal dialysis Is this a current diagnosis for this admission?: Yes Plan: Patient undergoing CAPD with good fluid removal. No evidences of peritonitis. Labs are good. From a renal point he can be discharged home and follow with the [facility] home section. (5) Hypertension Is this a current diagnosis for this admission?: Yes Plan: Well controlled. Monitor.
[2018-08-12 15:16] VITALS: BP 133/39
--- NOTE | 2018-08-12 15:19 | PDOC DISCHARGE SUMMARY ---
General - Admit/Disc Date/PCP Admission Date/Primary Care Provider: 08/08/18 01:46 [facility] Discharge Date: 08/12/18 - Discharge Diagnosis (1) Acute on chronic respiratory failure with hypoxia and hypercapnia Is this a current diagnosis for this admission?: Yes Summary: Patient will be treated with BiPAP and other interventions as required to supplement him and maintain adequate tissue oxygenation and respiration of CO2 during his acute phase of COPD exacerbation. Eventually it is hoped to return him to his baseline of 3 L of oxygen per minute via nasal cannula continuously at home. Arterial or venous blood gases will be obtained as needed. 08/08/[id number]-gime-old with multiple medical problems including COPD, end-stage renal disease on peritoneal dialysis admitted with acute on chronic respiratory failure with hypoxia and hypercapnia he is presently on BiPAP. On 4 L with 40% oxygen pulse ox is 100%. Patient is in mild distress in the bed on BiPAP at the time of examination. Chest x-ray suggestive of pneumonia in the right base. And is to continue the BiPAP on as-needed basis, continue nebulizations on as- needed basis. 08/09/[id number]-azsn-old male with history of COPD and end-stage renal disease on peritoneal dialysis admitted for acute on chronic respiratory failure with hypoxia and hypercapnia requiring BiPAP due to COPD exacerbation. Oxygen requirements are improving. Patient is on 3 L of oxygen at home. If we can wean him off on BiPAP today probably can go home tomorrow. Chest x-ray shows questionable right-sided pneumonia most likely community-acquired presently on Rocephin and levofloxacillin. 08/10/[id number]-cgot-old male with history of COPD on 3 L oxygen at home admitted for acute on chronic respiratory failure with hypoxia and hypercapnia. Pulse ox is 96% on 25% oxygen. Plan is to continue the present management today on examination chest bilateral it was decreased no wheezing no crepitation. IV Solu-Medrol is discontinued today. X-ray suggestive right-sided pneumonia is getting IV Rocephin and levofloxacin. 08/12/[id number]-vdkd-old male with history of multiple medical problems including ESRD on peritoneal dialysis, COPD on 3 L of oxygen admitted for acute on chronic respiratory failure with hypoxia and hypercapnia. Patient oxygen requirements are at baseline. Pulse ox is 94% on 3 L. Comfortable in the bed communicating well. (2) COPD exacerbation Is this a current diagnosis for this admission?: Yes Summary: Patient be treated aggressively with a pulmonary toilet utilizing Xopenex, Pulmicort and Atrovent via nebulizer with intravenous Solu-Medrol and supplemental oxygen as well as noninvasive airway pressure devices and even intubation if necessary. A pulmonary medicine consultation may be obtained. Daily CBCs will be obtained. 08/08/2018-patient admitted for COPD exacerbation presently on Xopenex, Pulmicort, Atrovent. Patient is also on BiPAP. He is also receiving IV Solu- Medrol at this point. 08/09/[id number]-sjnk-old male admitted with COPD exacerbation presently on Xopenex, Pulmicort and Atrovent nebulizations. He is still on BiPAP at 35% oxygen. Oxygen requirements are improving. Plan is to continue the present management. 08/10/[id number]-qorj-old male admitted for COPD exacerbation presently on Xopenex, Pulmicort, Atrovent nebulizations IV Solu-Medrol is discontinued from today. 08/11/2018-patient history of COPD admitted for COPD exacerbation presently on Xopenex, Pulmicort, Atrovent nebulizations. 08/12/2018-patient with history of COPD on 3 L oxygen at home admitted with COPD exacerbation treated with Xopenex, Pulmicort, duo nebulizations. Patient is tapered off on IV Solu-Medrol. Patient is advised to continue his home medications upon discharge. Patient is going home on her levo floxacillin to 50 mg p.o. daily for 5 days. (3) ESRD (end stage renal disease) Is this a current diagnosis for this admission?: No Summary: 08/08/2018-patient has a history of end-stage renal disease on peritoneal dialysis. Consult with Dr. Sams is requested. 08/10/2018-patient is on peritoneal dialysis tolerating the procedure very well creatinine is 6.8 today potassium is 3.6. And is to continue the peritoneal dialysis during the hospital stay. 08/11/2018-patient has end-stage renal disease on peritoneal dialysis fluctuating fluid drainage. [facility] is following the patient. Peritoneal dialysis management as per the education department chair. 22,019-patient has end-stage renal disease on peritoneal dialysis as per Dr Evans adequate fluid drainage. Patient is advised to follow-up with her education department chair in 3 to 5 days. (4) Anemia in chronic kidney disease Is this a current diagnosis for this admission?: Yes Summary: 08/08/2018-patient's hemoglobin is 11.8 anemia of chronic disease most likely secondary to end-stage renal disease. 08/10/2018-patient's hemoglobin is 10.2. Anemia of chronic disease most likely secondary to end-stage renal disease. 08/11/2018-patient's hemoglobin is around 10. Stable. Anemia of the chronic disease most likely secondary to end-stage renal disease. 08/12/2018-patient hemoglobin is stable around 10.6. Anemia of chronic disease most likely secondary to end-stage renal disease. (5) Pneumonia Is this a current diagnosis for this admission?: Yes Summary: 08/09/2018-patient chest x-ray indicates questionable right-sided pneumonia cultures are negative so far presently on IV Rocephin and levo floxacillin. Most likely community acquired pneumonia and may be gram-positive organisms are responsible. 08/11/2018-patient is getting IV Rocephin and IV levofloxacin for right-sided pneumonia. Afebrile. 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 daily for 5 days. Low-dose of levo floxacillin because of the end-stage renal disease. (6) Hypertension Is this a current diagnosis for this admission?: Yes Summary: 08/09/2018-patient has history of chronic essential hypertension blood pressure today is 143/60 stable. 08/10/2018-blood pressure today is 146/60. Stable. Plan is to continue the present management. 08/11/2018-patient blood pressure today is 145/40. Stable. Plan is to continue the present management. 08/12/2018-patient blood pressure today is 136/56 stable. Advised him to continue his home medications upon discharge. (7) Diabetes Is this a current diagnosis for this admission?: No Summary: 08/10/2018-patient has type 2 diabetes mellitus on Lantus 80 units at bedtime and also on insulin sliding scale blood sugar this morning is 410. To discontinue IV Solu-Medrol and continue the present insulin regimen. Dietary consult was requested compliant with medications diet exercise weight loss discussed with the patient. 08/11/2018-patient's blood sugar is 237 improved from yesterday on Lantus 8 units at bedtime also insulin sliding scale. hemoglobin A1c 7.5. 08/12/2018-latest blood sugar is 270 diet exercise weight loss compared medications were discussed with the patient. Patient advised to continue Lantus at home insulin sliding scale. - Additional Information Resuscitation Status: Full Code Discharge Diet: Diabetic Discharge Activity: Activity As Tolerated Prescriptions: Levofloxacin [Levaquin 250 mg Tablet] 250 mg PO DAILY #5 tablet Home Medications: Aspirin [Ecotrin 81 mg EC Tablet] 81 mg PO DAILY 04/23/18 Atorvastatin Calcium [Lipitor 80 mg Tablet] 80 mg PO QHS 04/23/18 Carvedilol [Coreg 12.5 mg Tablet] 12.5 mg PO Q12 04/23/18 Escitalopram Oxalate [Lexapro 10 mg Tablet] 30 mg PO DAILY 04/23/18 Finasteride [Proscar 5 mg Tablet] 5 mg PO DAILY 04/23/18 Folic Acid/Vitamin B Comp W-C [Renal Multivitamin Tablet] 1 tab PO DAILY 04/23/18 Insulin Glargine,Hum.rec.anlog [Lantus (Pyxis) Insulin 100 Unit/1 ml 10 ml] 80 unit SUBCUT QHS 04/23/18 Isosorbide Mononitrate [Imdur 30 mg Tablet.er] 30 mg PO DAILY 04/23/18 Terazosin HCl [Hytrin] 2 mg PO QHS 04/23/18 Famotidine [Pepcid 20 mg Tablet] 20 mg PO QHS 08/08/18 Ipratropium/Albuterol Sulfate [Duoneb 3 ml Ampul] 1 vial NEB QID 08/08/18 Lactulose [Cephulac Syrup 20 gm/30 ml Udcup] 20 gm PO DAILYP PRN udc 08/12/18 Levofloxacin [Levaquin 250 mg Tablet] 250 mg PO DAILY #5 tablet 08/12/18 Magnesium Oxide [Mag-Ox 400 mg Tablet] 400 mg PO BID tablet 08/12/18 History of Present Illness History of Present Illness: CELIO WAGNER is a 67 year old male 67 year old male who presented to the emergency room complaining of dyspnea. Patient admits for the last several days he has experienced gradually worsening dyspnea accompanied by a cough productive of clear sputum, progressively worsening fatigue, generalized weakness and decreased appetite. He further admits that his symptoms greatly escalated on 08/07/2018 becoming severe and necessitating a trip to the emergency room. He tried treating himself at home by increasing his O2 from 3 L/min to 5 or 6 L/min and using additional breathing treatments all without substantial relief. He has not identified any aggravating or ameliorating factors for his dyspnea but has numerous prior similar episodes related to his COPD and CHF. In the emergency room he was found to be significantly hypoxic and hypercapnic requiring treatment with BiPAP. His CBC was normal. His chest x-ray revealed a right pleural effusion. His BNP was elevated. With these findings the patient was admitted to hospital for further evaluation treatment. Hospital Course Hospital Course: 87-year-old male with history of end-stage renal disease, COPD, hypertension, diabetes mellitus admitted for acute on chronic respiratory failure with hypoxia and hypercapnia treated with scheduled and as needed nebulizations and IV on IV Solu-Medrol initially requiring BiPAP. Pulmonary consult was requested as per the pulmonology team patient can go home on trilogy. Patient is on 3 L of oxygen at home oxygen requirements are at baseline now. On examination chest x- ray found to have right lobe pneumonia, treated with IV antibiotic therapy and cultures are negative. Physical Exam Vital Signs: Temp Pulse Resp BP Pulse Ox 97.9 F 62 16 143/54 H 99 08/12/18 11:44 08/12/18 14:00 08/12/18 11:44 08/12/18 13:00 08/12/18 11:44 Pulse Oximeter Continuous Start: 08/09/18 09:40 Freq: RTQ4 Status: Active Protocol: Document 08/12/18 12:10 HCR (Rec: 08/12/18 12:23 HCR [id number]) Pulse Oximetry Assessment Equipment Usage Equipment Standby Continuous SpO2 Machine # 11 Intake & Output 08/11/18 08/12/18 08/13/18 06:59 06:59 06:59 Intake Total 51550 91381 5750 Output Total 9650 35054 5600 Balance 1080 -490 150 Weight 101.2 kg 100 kg 98 kg General appearance: PRESENT: no acute distress Head exam: PRESENT: atraumatic Eye exam: PRESENT: PERRLA Ear exam: PRESENT: normal external ear exam Mouth exam: PRESENT: moist, tongue midline Neck exam: ABSENT: carotid bruit, JVD, lymphadenopathy, thyromegaly Respiratory exam: PRESENT: decreased breath sounds Cardiovascular exam: PRESENT: systolic murmur GI/Abdominal exam: PRESENT: normal bowel sounds, soft, other - Patient has peritoneal dialysis catheter catheter site is looks clean.. ABSENT: distended, guarding, mass, organolmegaly, rebound, tenderness Rectal exam: PRESENT: deferred Extremities exam: PRESENT: full ROM. ABSENT: calf tenderness, clubbing, pedal edema Neurological exam: PRESENT: alert, awake, oriented to person, oriented to place, oriented to time, oriented to situation, CN II-XII grossly intact. ABSENT: motor sensory deficit Psychiatric exam: PRESENT: appropriate affect, normal mood. ABSENT: homicidal ideation, suicidal ideation Results Laboratory Results: 08/12/18 08:28 08/12/18 08:28 08/12/18 08/12/18 08:28 08:28 WBC 10.0 RBC 3.44 L Hgb 10.6 L Hct 32.7 L MCV 95 MCH 30.9 MCHC 32.4 RDW 15.9 H Plt Count 282 Seg Neutrophils % Not Reportable Lymphocytes % Not Reportable Monocytes % Not Reportable Eosinophils % Not Reportable Basophils % Not Reportable Absolute Neutrophils Not Reportable Absolute Lymphocytes Not Reportable Absolute Monocytes Not Reportable Absolute Eosinophils Not Reportable Absolute Basophils Not Reportable Sodium 139.7 Potassium 3.6 Chloride 100 Carbon Dioxide 27 Anion Gap 13 BUN 54 H Creatinine 6.11 H Est GFR ( Amer) 11 L Est GFR (Non-Af Amer) 9 L Glucose 278 H Calcium 7.7 L Magnesium 1.6 Total Bilirubin 0.3 AST 20 ALT 20 L Alkaline Phosphatase 203 H Total Protein 6.4 Albumin 3.1 L 08/07/18 08/07/18 08/07/18 22:45 22:45 22:45 Creatine Kinase 83 CK-MB (CK-2) 4.48 Troponin I 0.081 NT-Pro-B Natriuret Pep 02810 H Impressions: Chest X-Ray 08/12/18 00:00 IMPRESSION: NO SIGNIFICANT INTERVAL CHANGE. Qualifiers - * PATIENT BEING DISCHARGED WITH ANY OF THE FOLLOWING DIAGNOSIS: No VTE patient discharged on overlapping Therapy?: No Acute Heart Failure Is this a Heart Failure Patient?: No Plan Discharge Plan: Patient is going home today. Time Spent: Greater than 30 Minutes
== END 2018-08-12 16:28 | disposition home or self-care (01) | DRG 193 ==
LOC: ER 22:20 → EH 08-08 01:46 → 3S 08-08 03:21
PROVIDERS: ADMIT Emergency Medicine; ATTEND Emergency Medicine
PROC: 3E1M39Z Irrigation of Peritoneal Cavity using Dialysate, Percutaneous Approach (ICD-10-PCS; principal; 2018-08-08)
DX: J18.9 Pneumonia, unspecified organism (principal); J96.22 Acute and chronic respiratory failure with hypercapnia; N18.6 End stage renal disease; J96.21 Acute and chronic respiratory failure with hypoxia; I13.2 Hypertensive heart and chronic kidney disease with heart failure and with stage 5 chronic kidney disease, or end stage renal disease; E87.2 Acidosis; J44.1 Chronic obstructive pulmonary disease with (acute) exacerbation; D63.1 Anemia in chronic kidney disease; I50.9 Heart failure, unspecified; E78.5 Hyperlipidemia, unspecified; E11.22 Type 2 diabetes mellitus with diabetic chronic kidney disease; Z99.81 Dependence on supplemental oxygen; Z79.82 Long term (current) use of aspirin; Z79.4 Long term (current) use of insulin; Z79.899 Other long term (current) drug therapy
CPT/HCPCS: 36415; 36600; 71045; 71046; 80048; 80053; 82550; 82553; 82803; 82962; 83036; 83735; 83880; 84484; 85025; 90947; 93005; 93010; 94640; 94660; 94762; 96365; 99285; J0696; J1642; J1644; J1815; J1956; J2920; J2930; J3490; J7620

== ENCOUNTER 2018-09-23 09:47 | Inpatient (IN) | payer OTHER, MEDICARE ==
[2018-09-23] MEDS ORDERED: LIDOCAINE 2% URO-JET 5 ML KIT MM ONE (09:55)
--- NOTE | 2018-09-23 09:57 | ER Document Report ---
ED Medical Screen (RME) - General Chief Complaint: Urinary Retention Stated Complaint: URINARY ISSUE Time Seen by Provider: 09/23/18 09:52 Primary Care Provider: CHRISTA,JEAN [Primary Care Provider] - Follow up as needed Mode of Arrival: Wheelchair Information source: Patient Notes: Patient presents reporting acute urinary retention for the past 2 days. Patient states he does have a history of BPH. Patient has had this problem in the past. Patient does peritoneal dialysis but still makes urine. Patient complains of suprapubic tenderness. No fever, no nausea or vomiting. hx: Hypertension, diabetes, BPH, COPD, peritoneal dialysis, NM x2, CHF I have greeted and performed a rapid initial assessment of this patient. A comprehensive ED assessment and evaluation of the patient, analysis of test results and completion of the medical decision making process will be conducted by additional ED providers. TRAVEL OUTSIDE OF THE [place] IN LAST 30 DAYS: No - Related Data Allergies/Adverse Reactions: No Known Allergies Allergy (Verified 09/23/18 09:48) Past Medical History - Past Medical History Cardiac Medical History: Reports: Hx Congestive Heart Failure, Hx Coronary Artery Disease, Hx Heart Attack - Twice with stents placed, Hx Hypercholesterolemia, Hx Hypertension Denies: Hx Atrial Fibrillation, Hx DVT, Hx Pulmonary Embolism Pulmonary Medical History: Reports: Hx COPD, Hx Respiratory Failure Denies: Hx Asthma Neurological Medical History: Denies: Hx Seizures Endocrine Medical History: Reports: Hx Diabetes Mellitus Type 2. Denies: Hx Di abetes Mellitus Type 1, Hx Hyperthyroidism, Hx Hypothyroidism Renal/ Medical History: Reports: Hx Benign Prostatic Hyperplasia, Hx End Stage Renal Disease, Hx Peritoneal Dialysis GI Medical History: Reports: Hx Diverticulitis. Denies: Hx Cirrhosis, Hx Hepatitis Musculoskeltal Medical History: Denies Hx Arthritis, Denies Hx Gout Skin Medical History: Denies Hx Eczema, Denies Hx Psoriasis Psychiatric Medical History: Reports: Hx Depression Infectious Medical History: Reports: Hx C-Diff. Denies: Hx Hepatitis Past Surgical History: Reports: Hx Cardiac Catheterization, Hx Coronary Stent - X2, Other - Small bowel resection; adhesion lysis; peritoneal dialysis access Physical Exam - Abdominal Tenderness: Tender - Suprapubic Doctor's Discharge - Discharge [facility] [[facility] - Follow up as needed
[2018-09-23 10:16] LABS: HEMATOCRIT 32.5 % (37.9-51.0); HEMOGLOBIN 10.9 g/dL (13.5-17.0); MEAN CORPUSCULAR HEMOGLOBIN 31.7 pg (27.0-33.4); MEAN CORPUSCULAR HGB CONC 33.7 g/dL (32.0-36.0); MEAN CORPUSCULAR VOLUME 94 fl (80-97); PLATELET COUNT 392 10^3/uL (150-450); RED BLOOD COUNT 3.45 10^6/uL (4.35-5.55); RED CELL DISTRIBUTION WIDTH 17.2 % (11.5-14.0)
[2018-09-23 10:32] LABS: ALANINE AMINOTRANSFERASE 17 U/L (21-72); ALBUMIN 3.9 g/dL (3.5-5.0); ALKALINE PHOSPHATASE 131 U/L (38-126); ANION GAP 19 (5-19); ASPARTATE AMINO TRANSFERASE 12 U/L (17-59); BILIRUBIN,DIRECT 0.7 mg/dL (0.0-0.4); BILIRUBIN,TOTAL 0.7 mg/dL (0.2-1.3); BLOOD UREA NITROGEN 35 mg/dL (7-20); CALCIUM 8.9 mg/dL (8.4-10.2); CARBON DIOXIDE 26 mmol/L (22-30); CHLORIDE 96 mmol/L (98-107); GLUCOSE 75 mg/dL (75-110); POTASSIUM 3.5 mmol/L (3.6-5.0); SODIUM 140.6 mmol/L (137-145); TOTAL PROTEIN 7.7 g/dL (6.3-8.2)
[2018-09-23 10:38] LABS: ABSOLUTE LYMPHOCYTES# (MANUAL) 1.3 10^3/uL (0.5-4.7); BASOPHILS % (MANUAL) 2 % (0-2); EOSINOPHILS % (MANUAL) 0 % (0-6); LYMPHOCYTES % (MANUAL) 6 % (13-45); MONOCYTES % (MANUAL) 9 % (3-13); SEGMENTED NEUTROPHILS % (MAN) 83 % (42-78); TOTAL CELLS COUNTED 100
[2018-09-23 10:39] LABS: ANISOCYTOSIS 1+; POLYCHROMASIA SLIGHT
[2018-09-23 10:40] LABS: PLATELET COMMENT ADEQUATE; PLATELET LARGE PRESENT
[2018-09-23 11:44] LABS: APPEARANCE,URINE TURBID; BILIRUBIN,URINE NEGATIVE (NEGATIVE); COLOR,URINE YELLOW; GLUCOSE, URINE >=500 mg/dL (NEGATIVE); KETONES,URINE NEGATIVE (NEGATIVE); LEUKOCYTE ESTERASE,URINE MODERATE (NEGATIVE); NITRITE,URINE NEGATIVE (NEGATIVE); PROTEIN,URINE 100 mg/dL (NEGATIVE); URINE SPECIFIC GRAVITY 1.021; UROBILINOGEN,URINE NEGATIVE mg/dL (<2.0)
[2018-09-23] MEDS ORDERED: CEFTRIAXONE 1 GM/D5W RTU 1 GM/50 ML RTUPB IV ONE (12:35)
--- NOTE | 2018-09-23 14:28 | ER Document Report ---
Entered by BRANDIE TY SCRIBE 09/23/18 1232 Acting as scribe for:SCOTT CLINTON MD ED General - General Chief Complaint: Urinary Retention Stated Complaint: URINARY ISSUE Time Seen by Provider: 09/23/18 09:52 Mode of Arrival: Wheelchair Notes: Patient is a 67-year-old male presented to the emergency department complaining of dysuria. Patient states that he has had difficulty urinating for 2 days now. Patient states that once he arrived and a catheter was placed it helped his pain a lot. I found about 175 mL of thick strickland-white urine in the bag. Patient denies any fever, chills, or abdominal pain. TRAVEL OUTSIDE OF THE [place] IN LAST 30 DAYS: No - Related Data Allergies/Adverse Reactions: No Known Allergies Allergy (Verified 09/23/18 09:48) Past Medical History - General Information source: Patient - Social History Smoking Status: Former Smoker Cigarette use (# per day): No Chew tobacco use (# tins/day): No Frequency of alcohol use: None Drug Abuse: None Family History: CAD, DM, Hypertension Patient has suicidal ideation: No Patient has homicidal ideation: No - Past Medical History Cardiac Medical History: Reports: Hx Congestive Heart Failure, Hx Coronary Artery Disease, Hx Heart Attack - Twice with stents placed, Hx Hypercholesterolemia, Hx Hypertension Pulmonary Medical History: Reports: Hx COPD, Hx Respiratory Failure Endocrine Medical History: Reports: Hx Diabetes Mellitus Type 2 Renal/ Medical History: Reports: Hx Benign Prostatic Hyperplasia, Hx End Stage Renal Disease, Hx Peritoneal Dialysis GI Medical History: Reports: Hx Diverticulitis Psychiatric Medical History: Reports: Hx Depression Infectious Medical History: Reports: Hx C-Diff Past Surgical History: Reports: Hx Abdominal Surgery - meckels diverticulum, Hx Cardiac Catheterization, Hx Coronary Stent - X2, Other - Small bowel resection; adhesion lysis; peritoneal dialysis access Review of Systems - Review of Systems Constitutional: No symptoms reported EENT: No symptoms reported Cardiovascular: No symptoms reported Respiratory: No symptoms reported Gastrointestinal: No symptoms reported Genitourinary: See HPI, Dysuria Male Genitourinary: No symptoms reported Musculoskeletal: No symptoms reported Skin: No symptoms reported Hematologic/Lymphatic: No symptoms reported Neurological/Psychological: No symptoms reported -: Yes All other systems reviewed and negative Physical Exam - Vital signs Vitals: Temp Pulse Resp BP Pulse Ox 97.5 F 99 18 114/64 96 07/01/19 09:55 09/23/18 09:55 09/23/18 09:55 09/23/18 09:55 09/23/18 09:55 - Notes Notes: Physical Exam: General: Alert, appears well, fluids are clear from peritoneal dialysis. HEENT: Normocephalic. Atraumatic. PERRL. Extraocular movements intact. Oropharynx clear. Neck: Supple. Non-tender. Respiratory: No respiratory distress. Clear and equal breath sounds bilaterally. Cardiovascular: Regular rate and rhythm. Abdominal: Normal Inspection. Non-tender. No distension. Normal Bowel Sounds. Back: Non-tender. No deformity or step off. Extremities: Moves all four extremities. Upper extremities: Normal inspection. Normal ROM. Lower extremities: Normal inspection. No edema. Normal ROM. Neurological: Normal cognition. AAOx4. Normal speech. Psychological: Normal affect. Normal Mood. Skin: Warm. Dry. Normal color. Course - Vital Signs Vital signs: Temp Pulse Resp BP Pulse Ox 97.7 F 101 H 16 129/51 H 93 09/25/18 19:51 09/25/18 23:00 09/25/18 19:55 09/25/18 23:00 09/26/18 00:24 - Laboratory Result Diagrams: 09/25/18 10:15 09/25/18 10:15 Laboratory results interpreted by me: 09/23/18 09/23/18 09/23/18 10:00 10:00 10:00 WBC 22.0 H RBC 3.45 L Hgb 10.9 L Hct 32.5 L RDW 17.2 H Seg Neuts % (Manual) 83 H Lymphocytes % (Manual) 6 L Abs Neuts (Manual) 18.3 H Abs Monocytes (Manual) 2.0 H Abs Basophils (Manual) 0.4 H Potassium 3.5 L Chloride 96 L BUN 35 H Creatinine 6.54 H Est GFR ( Amer) 10 L Est GFR (Non-Af Amer) 8 L Direct Bilirubin 0.7 H AST 12 L ALT 17 L Alkaline Phosphatase 131 H CK-MB (CK-2) 8.07 H Urine Protein Urine Glucose (UA) Urine Blood Ur Leukocyte Esterase 09/23/18 11:00 WBC RBC Hgb Hct RDW Seg Neuts % (Manual) Lymphocytes % (Manual) Abs Neuts (Manual) Abs Monocytes (Manual) Abs Basophils (Manual) Potassium Chloride BUN Creatinine Est GFR ( Amer) Est GFR (Non-Af Amer) Direct Bilirubin AST ALT Alkaline Phosphatase CK-MB (CK-2) Urine Protein 100 H Urine Glucose (UA) >=500 H Urine Blood SMALL H Ur Leukocyte Esterase MODERATE H - EKG Interpretation by Me EKG shows normal: Sinus rhythm, [place], Intervals, QRS Complexes. abnormal: ST-T Waves - Nonspecific lateral T abnormalities Rate: Normal - 87 Rhythm: NSR, PVC's When compared to previous EKG there are: No significant change - Consults Dr. Becerra Time consulted: 14:44 Consulted provider: will come to ER Dr. Evans Time consulted: 14:47 Consulted provider: will see as inpatient Critical Care Note - Critical Care Note Total time excluding time spent on procedures (mins): 40 Discharge - Discharge Clinical Impression: Acute urinary retention, Chronic renal failure, stage 5 Urinary tract infection Qualifiers: Urinary tract infection type: site unspecified Hematuria presence: without hematuria Qualified Code(s): N39.0 - Urinary tract infection, site not specified Leukocytosis Qualifiers: Leukocytosis type: unspecified Qualified Code(s): D72.829 - Elevated white blood cell count, unspecified Condition: Stable Disposition: ADMITTED INPATIENT Admitting Provider: Hernan (Hospitalist) Unit Admitted: [facility] Scribe Attestation: 09/23/18 14:40 I personally performed the services described in the documentation, reviewed and edited the documentation which was dictated to the scribe in my presence, and it accurately records my words and actions. I personally performed the services described in the documentation, reviewed and edited the documentation which was dictated to the scribe in my presence, and it accurately records my words and actions.
[2018-09-23] MEDS ORDERED: IPRATROPIUM/ALBUTEROL 0.5-2.5 MG/3 ML AMPUL NEB ONE (15:08)
[2018-09-23] MEDS ORDERED: ONDANSETRON HCL INJ/PF 4 MG/2 ML SDV IV PRN (15:08)
[2018-09-23] MEDS ORDERED: PIPERACILLIN/TAZOBACTAM 3.375 GM VIAL IV SCH (15:15)
[2018-09-23] MEDS ORDERED: VANCOMYCIN HCL INJ 1000 MG VIAL IV SCH (15:15)
--- NOTE | 2018-09-23 15:27 | PDOC H&P ---
History of Present Illness Admission Date/PCP: [facility] Patient complains of: Lower abdominal pain of one day duration History of Present Illness: CELIO WAGNER is a 67 year old male with history of ESRD on peritoneal dialysis, congestive heart failure, coronary artery disease, MD with stent placement, hypertension, hyperlipidemia, COPD with history of respiratory failure, type 2 diabetes mellitus, BPH, diverticulitis, depression came to the emergency room w ith complaints of unable to urinate since yesterday.. Because he is on peritoneal dialysis usually he urinates very little but yesterday unable to pee at all and from this morning having the lower abdominal pains and family are also noticed to have low blood pressures recorded at home for the last 3 4 days systolic blood pressures in the 70s so they decided to bring him to the ER for further evaluation. No history of fever recorded no nausea no vomiting no diarrhea no constipation was compliant. Denies any chest pains denies any cough. Past Medical History Cardiac Medical History: Reports: Congestive Heart Failure, Coronary Artery Disease, Myocardial Infarction - Twice with stents placed, Hyperlipidema, Hypertension Denies: Atrial Fibrillation, DVT, Pulmonary Embolism Pulmonary Medical History: Reports: Chronic Obstructive Pulmonary Disease (COPD), Respiratory Failure Denies: Asthma Neurological Medical History: Denies: Seizures Endocrine Medical History: Reports: Diabetes Mellitus Type 2 Denies: Diabetes Mellitus Type 1, Hyperthyroidism, Hypothyroidism Renal/ Medical History: Reports: End Stage Renal Disease GI Medical History: Reports: Diverticulitis Denies: Cirrhosis, Hepatitis Musculoskeltal Medical History: Denies: Arthritis, Gout Skin Medical History: Denies: Eczema, Psoriasis Psychiatric Medical History: Reports: Depression Hematology: Reports: Anemia Denies: Bleeding Tendencies Infectious Medical History: Reports: Clostridium Difficile Past Surgical History Past Surgical History: Reports: Cardiac Catheterization, Coronary Stent - X2, Other - Small bowel resection; adhesion lysis; peritoneal dialysis access Social History Information Source: Patient Smoking Status: Former Smoker Frequency of Alcohol Use: Rare Hx Recreational Drug Use: No Drugs: None Hx Prescription Drug Abuse: No - Advance Directive Resuscitation Status: Full Code Family History Family History: CAD, DM, Hypertension Parental Family History Reviewed: Yes - Family history of coronary artery disease diabetes and hypertension Children Family History Reviewed: Yes Sibling(s) Family History Reviewed.: Yes Medication/Allergy Home Medications: Atorvastatin Calcium [Lipitor 80 mg Tablet] 80 mg PO QHS 04/23/18 Carvedilol [Coreg 12.5 mg Tablet] 12.5 mg PO Q12 04/23/18 Escitalopram Oxalate [Lexapro 10 mg Tablet] 30 mg PO DAILY 04/23/18 Finasteride [Proscar 5 mg Tablet] 5 mg PO DAILY 04/23/18 Folic Acid/Vitamin B Comp W-C [Renal Multivitamin Tablet] 1 tab PO DAILY 04/23/18 Insulin Glargine,Hum.rec.anlog [Lantus (Pyxis) Insulin 100 Unit/1 ml 10 ml] 80 unit SUBCUT QHS 04/23/18 Isosorbide Mononitrate [Imdur 30 mg Tablet.er] 30 mg PO DAILY 04/23/18 Terazosin HCl [Hytrin] 2 mg PO QHS 04/23/18 Famotidine [Pepcid 20 mg Tablet] 20 mg PO QHS 08/08/18 Ipratropium/Albuterol Sulfate [Duoneb 3 ml Ampul] 1 vial NEB QID 08/08/18 Aspirin [Aspirin 81 mg Chewable Tablet] 81 mg PO DAILY 09/23/18 Bisacodyl [Dulcolax 5 Mg Tablet] 5 mg PO ASDIR PRN 09/23/18 Omeprazole 20 mg PO DAILY 09/23/18 Allergies/Adverse Reactions: No Known Allergies Allergy (Verified 09/23/18 09:48) Review of Systems Constitutional: ABSENT: fatigue, fever(s), headache(s), night sweats, weakness Eyes: ABSENT: visual disturbances Ears: ABSENT: hearing changes Nose, Mouth, and Throat: ABSENT: sore throat Cardiovascular: ABSENT: edema, orthropnea, palpitations Respiratory: ABSENT: dyspnea, hemoptysis Gastrointestinal: PRESENT: abdominal pain. ABSENT: coffee ground emesis, constipation, diarrhea, heartburn, hematemesis, hematochezia, melena, nausea, vomiting Genitourinary: PRESENT: difficulty urinating Musculoskeletal: ABSENT: joint swelling Integumentary: ABSENT: rash, wounds Neurological: ABSENT: abnormal gait, abnormal speech, confusion, dizziness, focal weakness, syncope Psychiatric: ABSENT: anxiety, depression, homidical ideation, suicidal ideation Physical Exam Vital Signs: Temp Pulse Resp BP Pulse Ox 97.5 F 99 18 114/64 96 09/23/18 09:55 09/23/18 09:55 09/23/18 09:55 09/23/18 09:55 09/23/18 09:55 Intake & Output 09/22/18 09/23/18 09/24/18 06:59 06:59 06:59 Weight 93.1 kg General appearance: PRESENT: no acute distress Head exam: PRESENT: atraumatic Eye exam: PRESENT: PERRLA Mouth exam: PRESENT: dry mucosa Teeth exam: PRESENT: poor dentation Neck exam: ABSENT: carotid bruit, JVD, lymphadenopathy, thyromegaly Respiratory exam: PRESENT: decreased breath sounds Cardiovascular exam: PRESENT: RRR. ABSENT: diastolic murmur, rubs, systolic murmur GI/Abdominal exam: PRESENT: diminished bowel sounds, other - Lower abdominal pain on gentle palpation previous surgical scar in the midline under dialysis access present. Rectal exam: PRESENT: deferred Extremities exam: PRESENT: full ROM. ABSENT: calf tenderness, clubbing, pedal edema Neurological exam: PRESENT: alert, awake, oriented to person, oriented to place, oriented to time, oriented to situation, CN II-XII grossly intact. ABSENT: motor sensory deficit Psychiatric exam: PRESENT: appropriate affect, normal mood. ABSENT: homicidal ideation, suicidal ideation Results Laboratory Results: 09/23/18 10:00 09/23/18 10:00 09/23/18 09/23/18 09/23/18 10:00 10:00 11:00 WBC 22.0 H RBC 3.45 L Hgb 10.9 L Hct 32.5 L MCV 94 MCH 31.7 MCHC 33.7 RDW 17.2 H Plt Count 392 Seg Neutrophils % Not Reportable Lymphocytes % Not Reportable Monocytes % Not Reportable Eosinophils % Not Reportable Basophils % Not Reportable Absolute Neutrophils Not Reportable Absolute Lymphocytes Not Reportable Absolute Monocytes Not Reportable Absolute Eosinophils Not Reportable Absolute Basophils Not Reportable Sodium 140.6 Potassium 3.5 L Chloride 96 L Carbon Dioxide 26 Anion Gap 19 BUN 35 H Creatinine 6.54 H Est GFR ( Amer) 10 L Est GFR (Non-Af Amer) 8 L Glucose 75 Lactic Acid Calcium 8.9 Total Bilirubin 0.7 AST 12 L ALT 17 L Alkaline Phosphatase 131 H Total Protein 7.7 Albumin 3.9 Urine Color YELLOW Urine Appearance TURBID Urine pH 6.0 Ur Specific [place] 1.021 Urine Protein 100 H Urine Glucose (UA) >=500 H Urine Ketones NEGATIVE Urine Blood SMALL H Urine Nitrite NEGATIVE Ur Leukocyte Esterase MODERATE H Urine WBC (Auto) >182 09/23/18 12:25 WBC RBC Hgb Hct MCV MCH MCHC RDW Plt Count Seg Neutrophils % Lymphocytes % Monocytes % Eosinophils % Basophils % Absolute Neutrophils Absolute Lymphocytes Absolute Monocytes Absolute Eosinophils Absolute Basophils Sodium Potassium Chloride Carbon Dioxide Anion Gap BUN Creatinine Est GFR ( Amer) Est GFR (Non-Af Amer) Glucose Lactic Acid 1.3 Calcium Total Bilirubin AST ALT Alkaline Phosphatase Total Protein Albumin Urine Color Urine Appearance Urine pH Ur Specific [place] Urine Protein Urine Glucose (UA) Urine Ketones Urine Blood Urine Nitrite Ur Leukocyte Esterase Urine WBC (Auto) Assessment and Plan - Diagnosis (1) Acute urinary retention Is this a current diagnosis for this admission?: Yes Plan: 09/23/2018-patient is going to be admitted with acute urinary retension. Was treated with leukocyte esterase positive and hypotension recorded at home. WBC count in the emergency room is 22,000. So patient is going to be admitted to IMCU and to send blood cultures urine cultures started on IV vancomycin and IV Zosyn. GI prophylaxis DVT prophylaxis initiated. Consultation with Dr. Evans was requested. (2) ESRD (end stage renal disease) Is this a current diagnosis for this admission?: Yes Plan: 09/23/2018-patient has end-stage renal disease secondary to diabetes mellitus came to the emergency room because of acute urinary retention usually he urinates few 100 mL's of urine per day yesterday is completely anuric associated with lower abdominal pain in and out catheter shows 150 mL of 4 strickland milky colored urine came out. Peritoneal dialysis as per Dr. Evans. (3) Leukocytosis Qualifiers: Leukocytosis type: unspecified Qualified Code(s): D72.829 - Elevated white blood cell count, unspecified Is this a current diagnosis for this admission?: Yes Plan: 09/23/2018-patient came in with a WBC count of 22,000 with possible associated UTI urine cultures blood cultures are requested started on IV Zosyn and vancomycin. Family members are mentioning that blood pressures are low at home with systolic of 70 in the emergency room blood pressure is 114/64. Suspect protocol is going to be implemented. (4) UTI (urinary tract infection) Qualifiers: Urinary tract infection type: site unspecified Hematuria presence: without hematuria Qualified Code(s): N39.0 - Urinary tract infection, site not specified Is this a current diagnosis for this admission?: Yes Plan: 09/23/2018-patient came in with lower abdominal pains unable to urinate urinalysis shows turbid colored urine positive for leukocyte esterase blood cultures urine cultures are requested started on antibiotics. (5) Anemia in chronic kidney disease Is this a current diagnosis for this admission?: No Plan: 09/23/2018-patient's hemoglobin is 10.9 anemia of chronic disease most likely secondary to end-stage renal disease. (6) Diabetes Qualifiers: Diabetes mellitus type: type 2 Is this a current diagnosis for this admission?: No Plan: 03/2018-patient has history of type 2 diabetes mellitus to start him on insulin sliding scale low-dose. Blood sugar on admission is 75. (8) Hypertension Is this a current diagnosis for this admission?: No Plan: 09/23/2018-patient given the history of hypertension blood pressure is 114/64. Stable. (9) Obesity (BMI 30.0-34.9) Is this a current diagnosis for this admission?: No Plan: 09/23/2018-patient's BMI is more than 31 diet exercise weight loss lifestyle modifications are discussed with the patient. Dietary consult is going to be requested. (10) CHF (congestive heart failure) Is this a current diagnosis for this admission?: No Plan: 09/23/2018-patient has history of congestive heart failure not in fluid overload. Most likely has a chronic systolic heart failure. - Time Time Spent with patient: 35 or more minutes Medications reviewed and adjusted accordingly: Yes Anticipated discharge: Home
[2018-09-23] MEDS: PANTOPRAZOLE SODIUM 40 MG TABLET.DR PO SCH (16:18)
[2018-09-23] MEDS: PIPERACILLIN SODIUM/TAZOBACTAM 3.375 GM in NORMAL SALINE 100 ML IV SCH ×2 (17:17→23:50)
[2018-09-23] MEDS ORDERED: VANCOMYCIN HCL 1,000 MG in DEXTROSE 5%-WATER 250 ML IV SCH (18:00)
[2018-09-23] MEDS ORDERED: DOPAMINE HCL/DEXTROSE 5%-WATER 800 MG/250 ML RTUINJ IV ONE (22:40)
[2018-09-23] MEDS ORDERED: DOPAMINE HCL 800 MG/D5W 250 ML IV PRN (22:58)
[2018-09-23] MEDS: HEPARIN SOD (PORCINE) 5,000 UNIT/ML 1 ML SYRINGE SUBCUT SCH (23:42)
--- NOTE | 2018-09-24 00:40 | EKG REPORT ---
SEVERITY:- ABNORMAL ECG - SINUS RHYTHM MULTIFORM VENTRICULAR PREMATURE COMPLEXES NONSPECIFIC T ABNORMALITIES, LATERAL LEADS : Confirmed by: Naya Benjamin 24-Sep-2018 00:40:04
[2018-09-24 04:15] LABS: ABSOLUTE BASOPHILS # (AUTO) 0.1 10^3/uL (0.0-0.2); ABSOLUTE EOSINOPHILS # (AUTO) 0.2 10^3/uL (0.0-0.6); ABSOLUTE LYMPHOCYTES (AUTO) 1.2 10^3/uL (0.5-4.7); ABSOLUTE MONOCYTES (AUTO) 1.2 10^3/uL (0.1-1.4); ABSOLUTE NEUT (AUTO) 15.3 10^3/uL (1.7-8.2); BASOPHILS % (AUTO) 0.6 % (0-2); EOSINOPHILS % (AUTO) 1.1 % (0-6); HEMATOCRIT 30.3 % (37.9-51.0); HEMOGLOBIN 9.9 g/dL (13.5-17.0); LYMPHOCYTES % (AUTO) 6.5 % (13-45); MEAN CORPUSCULAR HEMOGLOBIN 30.8 pg (27.0-33.4); MEAN CORPUSCULAR HGB CONC 32.7 g/dL (32.0-36.0); MEAN CORPUSCULAR VOLUME 94 fl (80-97); MONOCYTES % (AUTO) 6.8 % (3-13); PLATELET COUNT 346 10^3/uL (150-450); RED BLOOD COUNT 3.21 10^6/uL (4.35-5.55); RED CELL DISTRIBUTION WIDTH 17.6 % (11.5-14.0); TOTAL CELLS COUNTED % (AUTO) 100 %
[2018-09-24 04:16] LABS: INTERNATIONAL RATION (INR) 1.08
[2018-09-24 04:17] LABS: PARTIAL THROMBOPLASTIN TIME 40.9 SEC (23.5-35.8)
[2018-09-24 04:36] LABS: ALANINE AMINOTRANSFERASE 16 U/L (21-72); ALBUMIN 3.3 g/dL (3.5-5.0); ALKALINE PHOSPHATASE 107 U/L (38-126); ANION GAP 16 (5-19); ASPARTATE AMINO TRANSFERASE 11 U/L (17-59); BILIRUBIN,DIRECT 0.6 mg/dL (0.0-0.4); BILIRUBIN,TOTAL 0.7 mg/dL (0.2-1.3); BLOOD UREA NITROGEN 38 mg/dL (7-20); CALCIUM 8.3 mg/dL (8.4-10.2); CARBON DIOXIDE 27 mmol/L (22-30); CHLORIDE 95 mmol/L (98-107); CHOLESTEROL 209.85 mg/dL (0-200); GLUCOSE 162 mg/dL (75-110); POTASSIUM 3.9 mmol/L (3.6-5.0); SODIUM 138.4 mmol/L (137-145); TOTAL PROTEIN 6.6 g/dL (6.3-8.2); TRIGLYCERIDES 239 mg/dL (<150)
[2018-09-24 04:44] LABS: TROPONIN I 0.083 ng/mL
[2018-09-24 04:47] LABS: DIRECT LDL 115 mg/dL (<100)
[2018-09-24 04:49] LABS: VLDL CHOLESTEROL 47.8 mg/dL (10-31)
[2018-09-24] MEDS: PIPERACILLIN SODIUM/TAZOBACTAM 3.375 GM in NORMAL SALINE 100 ML IV SCH (06:00)
[2018-09-24] MEDS: PANTOPRAZOLE SODIUM 40 MG TABLET.DR PO SCH ×2 (06:37→16:28)
[2018-09-24] MEDS: HEPARIN SOD (PORCINE) 5,000 UNIT/ML 1 ML SYRINGE SUBCUT SCH ×3 (06:37→22:49)
[2018-09-24] MEDS: IPRATROPIUM/ALBUTEROL 0.5-2.5 MG/3 ML AMPUL NEB SCH ×4 (09:15→20:49)
[2018-09-24] MEDS ORDERED: VITAMIN B COMP W C PO SCH (10:00)
[2018-09-24] MEDS ORDERED: FOLIC ACID PO SCH (10:00)
[2018-09-24] MEDS: FINASTERIDE 5 MG TABLET PO SCH (10:01)
[2018-09-24] MEDS: ASPIRIN 81 MG TABLET, CHEWABLE PO SCH (10:12)
[2018-09-24] MEDS: ESCITALOPRAM OXALATE 10 MG TABLET PO SCH (10:12)
[2018-09-24] MEDS: GENTAMICIN SULFATE 0.1% CREAM 15 GM TP SCH (10:13)
[2018-09-24] MEDS: ACETAMINOPHEN 325 MG TABLET PO PRN (10:15)
[2018-09-24] MEDS: PIPERACILLIN SODIUM/TAZOBACTAM 2.25 GM in NORMAL SALINE 50 ML IV SCH ×2 (13:26→22:48)
[2018-09-24] MEDS: INSULIN LISPRO 100 UNIT/ML 3 ML VIAL SUBCUT SCH ×2 (16:28→22:49)
--- NOTE | 2018-09-24 17:16 | PDOC CONSULTATION ---
Consultation Consult Date: 09/24/18 Provider Consulted: JOEL SOLO Consult reason:: Nephrology service is consulted to supervise peritoneal dialysis while the patient is here in the hospital. History of Present Illness Admission Date/PCP: 09/23/18 17:28 [facility] History of Present Illness: CELIO WAGNER is a 67 year old male with history of ESRD on peritoneal dialysis, coronary artery disease, congestive heart failure, COPD with history of respiratory failure, hypertension, diabetes mellitus who presented to the emergency room because of difficulty in urination. Patient tells me that he could not urinate for 1 day and so he presented to the emergency room. He was also noted to have low blood pressure with systolic blood pressure as low as 70s. He has some lower abdominal pain as well. In the emergency room a Moraes catheter was inserted and a milky, cloudy urine came out. His initial urinalysis is consistent with urinary tract infection. Patient was started on antibiotics initially ceftriaxone and currently on IV Zosyn and vancomycin. Patient relates that he did not have any problems with his peritoneal dialysis. When I saw him were currently draining his PD fluid. The effluent is clear. So far while here in the hospital there is no problems with his peritoneal di alysis. He denies any other complaints otherwise. The patient is still having low blood pressure. So currently we are using 1.5% dialysis solution until his blood pressure improves. Past Medical History Cardiac Medical History: Reports: CHF-Diastolic, Coronary Artery Disease, Hyperlipidemia, Hypertension-primary, Myocardial Infarction - Twice with stents placed, Pulmonary Hypertension Pulmonary Medical History: Reports: Chronic Obstructive Pulmonary Disease (COPD), Respiratory Failure Endocrine Medical History: Reports: Diabetes Mellitus Type 2, Obesity Complications of Diabetes: Reports: Autonomic Neuropathy, Diabetic Foot Ulcer, Nephropathy, Retinopathy Renal/ Medical History: Reports: Benign Prostatic Hyperplasia, End Stage Renal Disease, Hypocalcemia, Hyperphosphatemia GI Medical History: Reports: Diverticulitis Psychiatric Medical History: Reports: Depression, Tobacco Dependency Infectious Medical History: Reports: Clostridium Difficile Hematology Medical History: Reports Anemia of Chronic Kidney Disease Past Surgical History Past Surgical History: Reports: Cardiac Catheterization, Coronary Stent - X2, Dialysis Access Surgery PD, Other - Small bowel resection; adhesion lysis; peritoneal dialysis access Social History Information Source: [facility] Records Smoking Status: Former Smoker Frequency of Alcohol Use: None Hx Recreational Drug Use: No Drugs: None Hx Prescription Drug Abuse: No - Advance Directive Resuscitation Status: Full Code Family History Family History: CAD, DM, Hypertension Parental Family History Reviewed: Yes Children Family History Reviewed: Yes Sibling(s) Family History Reviewed.: Yes Medication/Allergy Home Medications: Atorvastatin Calcium [Lipitor 80 mg Tablet] 80 mg PO QHS 04/23/18 Carvedilol [Coreg 12.5 mg Tablet] 12.5 mg PO Q12 04/23/18 Escitalopram Oxalate [Lexapro 10 mg Tablet] 10 mg PO DAILY 04/23/18 Finasteride [Proscar 5 mg Tablet] 5 mg PO DAILY 04/23/18 Folic Acid/Vitamin B Comp W-C [Renal Multivitamin Tablet] 1 tab PO DAILY 04/23/18 Insulin Glargine,Hum.rec.anlog [Lantus (Pyxis) Insulin 100 Unit/1 ml 10 ml] 80 unit SUBCUT QHS 04/23/18 Isosorbide Mononitrate [Imdur 30 mg Tablet.er] 30 mg PO DAILY 04/23/18 Terazosin HCl [Hytrin] 2 mg PO QHS 04/23/18 Famotidine [Pepcid 20 mg Tablet] 20 mg PO QHS 08/08/18 Ipratropium/Albuterol Sulfate [Duoneb 3 ml Ampul] 1 vial NEB QID 08/08/18 Aspirin [Aspirin 81 mg Chewable Tablet] 81 mg PO DAILY 09/23/18 Bisacodyl [Dulcolax 5 Mg Tablet] 5 mg PO ASDIR PRN 09/23/18 Omeprazole 20 mg PO DAILY 09/23/18 Allergies/Adverse Reactions: No Known Allergies Allergy (Verified 09/23/18 09:48) Review of Systems All systems: reviewed and no additional remarkable complaints except as stated Review of Systems: Constitutional: ABSENT: chills, fatigue, fever(s), headache(s), weight gain, weight loss Eyes: ABSENT: visual disturbances Ears: ABSENT: hearing changes Cardiovascular: ABSENT: chest pain, dyspnea on exertion, edema, orthropnea, palpitations Respiratory: ABSENT: cough, dyspnea, hemoptysis Gastrointestinal: ABSENT: Constipation, diarrhea, hematemesis, hematochezia, nausea, vomiting; admits lower abdominal pain Genitourinary: ABSENT: dysuria, hematuria; reports inability to urinate Musculoskeletal: ABSENT: joint swelling Integumentary: ABSENT: rash, wounds Neurological: ABSENT: abnormal gait, abnormal speech, confusion, dizziness, focal weakness, numbness, syncope Psychiatric: ABSENT: anxiety, depression Endocrine: ABSENT: cold intolerance, heat intolerance, polydipsia, polyuria Hematologic/Lymphatic: ABSENT: easy bleeding, easy bruising, lymphadenopathy Physical Exam Vital Signs: Temp Pulse Resp BP Pulse Ox 98.6 F 83 18 153/66 H 96 09/24/18 03:06 09/24/18 09:15 09/24/18 09:15 09/24/18 09:00 09/24/18 09:15 Intake & Output 09/23/18 09/24/18 09/25/18 06:59 06:59 06:59 Intake Total 5746 100 Output Total 5145 Balance 601 100 Weight 91.7 kg Exam: General appearance: No acute distress, cooperative, well-developed, well- nourished Head exam: PRESENT: atraumatic, normocephalic Eye exam: PRESENT: Conjunctiva pale, EOMI, PERRLA. ABSENT: conjunctival injection, scleral icterus Mouth exam: PRESENT: moist, neck supple, tongue midline Neck exam: PRESENT: full ROM. ABSENT: carotid bruit, JVD, lymphadenopathy, thyromegaly Respiratory exam: PRESENT: clear to auscultation bilaterally. ABSENT: rales, rhonchi, stridor, wheezes Cardiovascular exam: PRESENT: RRR, +S1, +S2. ABSENT: systolic murmur Pulses: PRESENT: normal radial pulses, normal dorsalis pedis pulses GI/Abdominal exam: PRESENT: normal bowel sounds, soft. ABSENT: guarding, mass, tenderness Rectal exam: Deferred Extremities exam: PRESENT: full ROM. ABSENT: calf tenderness, pedal edema Musculoskeletal: PRESENT: full ROM. ABSENT: deformity Neurological exam: PRESENT: alert, Awake, Oriented to person, Oriented to place, Oriented to time, reflexes normal, CN II-XII grossly intact. ABSENT: motor sensory deficit Psychiatric exam: PRESENT: appropriate affect, normal mood. ABSENT: homicidal ideation, suicidal ideation Skin exam: PRESENT: intact, dry, warm. ABSENT: rash Results Laboratory Results: 09/24/18 03:15 09/24/18 03:15 09/23/18 09/24/18 09/24/18 21:10 03:15 03:15 WBC 18.0 H RBC 3.21 L Hgb 9.9 L Hct 30.3 L MCV 94 MCH 30.8 MCHC 32.7 RDW 17.6 H Plt Count 346 Seg Neutrophils % 85.0 H Lymphocytes % 6.5 L Monocytes % 6.8 Eosinophils % 1.1 Basophils % 0.6 Absolute Neutrophils 15.3 H Absolute Lymphocytes 1.2 Absolute Monocytes 1.2 Absolute Eosinophils 0.2 Absolute Basophils 0.1 Sodium 138.4 Potassium 3.9 Chloride 95 L Carbon Dioxide 27 Anion Gap 16 BUN 38 H Creatinine 7.33 H Est GFR ( Amer) 9 L Est GFR (Non-Af Amer) 7 L Glucose 162 H Calcium 8.3 L Magnesium 1.7 Total Bilirubin 0.7 AST 11 L ALT 16 L Alkaline Phosphatase 107 Total Protein 6.6 Albumin 3.3 L Triglycerides 239 H Cholesterol 209.85 H LDL Cholesterol Direct 115 H VLDL Cholesterol 47.8 H HDL Cholesterol 40 TSH 09/24/18 03:15 WBC RBC Hgb Hct MCV MCH MCHC RDW Plt Count Seg Neutrophils % Lymphocytes % Monocytes % Eosinophils % Basophils % Absolute Neutrophils Absolute Lymphocytes Absolute Monocytes Absolute Eosinophils Absolute Basophils Sodium Potassium Chloride Carbon Dioxide Anion Gap BUN Creatinine Est GFR ( Amer) Est GFR (Non-Af Amer) Glucose Calcium Magnesium Total Bilirubin AST ALT Alkaline Phosphatase Total Protein Albumin Triglycerides Cholesterol LDL Cholesterol Direct VLDL Cholesterol HDL Cholesterol TSH 0.51 09/23/18 09/23/18 09/23/18 10:00 10:00 21:10 Creatine Kinase 155 121 CK-MB (CK-2) 8.07 H Troponin I NT-Pro-B Natriuret Pep 09/23/18 09/23/18 09/24/18 21:10 21:10 03:15 Creatine Kinase 95 CK-MB (CK-2) 6.03 H Troponin I 0.079 NT-Pro-B Natriuret Pep 09/24/18 09/24/18 03:15 03:15 Creatine Kinase CK-MB (CK-2) 4.97 H Troponin I 0.083 NT-Pro-B Natriuret Pep 86937 H Assessment & Plan - Diagnosis (1) UTI (urinary tract infection) Qualifiers: Urinary tract infection type: site unspecified Hematuria presence: without hematuria Qualified Code(s): N39.0 - Urinary tract infection, site not specified Is this a current diagnosis for this admission?: Yes Plan: Continue IV antibiotics per hospitalist service. Adjust according to kidney function. (2) End-stage renal disease on peritoneal dialysis Is this a current diagnosis for this admission?: Yes Plan: We will do manual peritoneal dialysis while here in the hospital. Continue with 4 exchanges every 6 hours using 2500 fill volume. Use 1.5% dialysis solution while systolic blood pressure is less than 110 and may use 2.5% if systolic blood pressure is greater than 110. Continue exit site care. At this point there is no evidence of any acute peritonitis. (3) Hypotension Is this a current diagnosis for this admission?: Yes (4) Acute urinary retention Is this a current diagnosis for this admission?: Yes (5) Anemia in chronic kidney disease Is this a current diagnosis for this admission?: Yes (6) Diabetes mellitus type 2 in obese Is this a current diagnosis for this admission?: Yes - Notes Notes: Thank you very much for this consultation. We will follow the patient with you. - Time Time Spent: 50 to 70 Minutes
--- NOTE | 2018-09-24 17:50 | PDOC PROGRESS REPORT ---
Subjective Progress Note for:: 09/24/18 Subjective:: 09/24: Assumed care. Chart reviewed. This is a 67 yr old male with a PMH of ESRD on peritoneal dialysis, congestive heart failure, coronary artery disease, [place] with stent placement, hypertension, hyperlipidemia, COPD with history of respiratory failure, type 2 diabetes mellitus, BPH, diverticulitis, and depression who presented with acute urinary retention. Patient reportedly also was having hypotension with a blood pressure in the 70s systolic at home. He was found to have leukocytosis and UTI on admission. Patient had Moraes catheter placement yesterday and per RN, there was significant purulent drainage from the catheter which they described as "oatmeal-like" output. Last night, patient's blood pressure dropped to 80/40s and he was started on dopamine drip. This morning, he appears comfortable and he says that he feels better. Patient does state now that he had urinary retention but also was having dysuria at home which he described as a burning sensation when he was peeing (he only makes minimal UO at home). Note of few purulent material on the urine from the Moraes. Appears purulent discharge is starting to clear out. Will wean off dopamine today. Reason For Visit: SEPSIS Physical Exam Vital Signs: Temp Pulse Resp BP Pulse Ox 98.6 F 70 16 105/43 L 96 09/24/18 03:06 09/24/18 14:00 09/24/18 13:26 09/24/18 12:49 09/24/18 13:26 Intake & Output 09/23/18 09/24/18 09/25/18 06:59 06:59 06:59 Intake Total 5746 2650 Output Total 5145 1900 Balance 601 750 Weight 202 lb 2.622 oz 210 lb 1.608 oz General appearance: PRESENT: no acute distress, well-developed, well-nourished Head exam: PRESENT: atraumatic, normocephalic Eye exam: PRESENT: conjunctiva pink, EOMI, PERRLA. ABSENT: scleral icterus Ear exam: PRESENT: normal external ear exam Mouth exam: PRESENT: moist, tongue midline Neck exam: ABSENT: carotid bruit, JVD, lymphadenopathy, thyromegaly Respiratory exam: PRESENT: clear to auscultation yair. ABSENT: rales, rhonchi, wheezes Cardiovascular exam: PRESENT: RRR. ABSENT: diastolic murmur, rubs, systolic murmur Pulses: PRESENT: normal dorsalis pedis pul GI/Abdominal exam: PRESENT: distended, normal bowel sounds, soft. ABSENT: guarding, mass, organolmegaly, rebound, tenderness Rectal exam: PRESENT: deferred Neurological exam: PRESENT: alert, awake, oriented to person, oriented to place, oriented to time, oriented to situation, CN II-XII grossly intact. ABSENT: motor sensory deficit Results Laboratory Results: 09/24/18 03:15 09/24/18 03:15 09/23/18 09/24/18 09/24/18 21:10 03:15 03:15 WBC 18.0 H RBC 3.21 L Hgb 9.9 L Hct 30.3 L MCV 94 MCH 30.8 MCHC 32.7 RDW 17.6 H Plt Count 346 Seg Neutrophils % 85.0 H Lymphocytes % 6.5 L Monocytes % 6.8 Eosinophils % 1.1 Basophils % 0.6 Absolute Neutrophils 15.3 H Absolute Lymphocytes 1.2 Absolute Monocytes 1.2 Absolute Eosinophils 0.2 Absolute Basophils 0.1 Sodium 138.4 Potassium 3.9 Chloride 95 L Carbon Dioxide 27 Anion Gap 16 BUN 38 H Creatinine 7.33 H Est GFR ( Amer) 9 L Est GFR (Non-Af Amer) 7 L Glucose 162 H Calcium 8.3 L Magnesium 1.7 Total Bilirubin 0.7 AST 11 L ALT 16 L Alkaline Phosphatase 107 Total Protein 6.6 Albumin 3.3 L Triglycerides 239 H Cholesterol 209.85 H LDL Cholesterol Direct 115 H VLDL Cholesterol 47.8 H HDL Cholesterol 40 TSH 09/24/18 03:15 WBC RBC Hgb Hct MCV MCH MCHC RDW Plt Count Seg Neutrophils % Lymphocytes % Monocytes % Eosinophils % Basophils % Absolute Neutrophils Absolute Lymphocytes Absolute Monocytes Absolute Eosinophils Absolute Basophils Sodium Potassium Chloride Carbon Dioxide Anion Gap BUN Creatinine Est GFR ( Amer) Est GFR (Non-Af Amer) Glucose Calcium Magnesium Total Bilirubin AST ALT Alkaline Phosphatase Total Protein Albumin Triglycerides Cholesterol LDL Cholesterol Direct VLDL Cholesterol HDL Cholesterol TSH 0.51 09/23/18 11:00 Catheterized Urine Urine Culture - Final C.albicans/C.dubliniensis 09/23/18 09/23/18 09/23/18 10:00 10:00 21:10 Creatine Kinase 155 121 CK-MB (CK-2) 8.07 H Troponin I NT-Pro-B Natriuret Pep 09/23/18 09/23/18 09/24/18 21:10 21:10 03:15 Creatine Kinase 95 CK-MB (CK-2) 6.03 H Troponin I 0.079 NT-Pro-B Natriuret Pep 09/24/18 09/24/18 03:15 03:15 Creatine Kinase CK-MB (CK-2) 4.97 H Troponin I 0.083 NT-Pro-B Natriuret Pep 61722 H Assessment and Plan - Diagnosis (1) Severe sepsis Is this a current diagnosis for this admission?: Yes Plan: Secondary to acute pyelonephritis. Wean off dopamine drip today. Continue IV antibiotics pending final culture results. (2) Acute pyelonephritis Is this a current diagnosis for this admission?: Yes Plan: Continue IV antibiotics. De-escalate tomorrow likely after cultures are resulted. (3) Acute urinary retention Is this a current diagnosis for this admission?: Yes Plan: Likely related to patient's urinary tract infection. Note occasional purulent material from the urine on the Moraes. (4) Chronic renal failure, stage 5 Is this a current diagnosis for this admission?: Yes Plan: On peritoneal dialysis. Nephrology following. (5) HTN (hypertension) Is this a current diagnosis for this admission?: Yes Plan: Hold home medications for now due to low normal blood pressures. - Time Time Spent with patient: 25-34 minutes
[2018-09-24] MEDS: FLUCONAZOLE 100 MG TABLET PO SCH (18:01)
[2018-09-24] MEDS ORDERED: FLUCONAZOLE 100 MG TABLET PO SCH (18:45)
[2018-09-24] MEDS ORDERED: INSULIN GLARGINE,HUM.REC.ANLOG 1,000 UNIT/10 ML VIAL SUBCUT SCH (22:00)
[2018-09-24] MEDS: ATORVASTATIN CALCIUM 80 MG TABLET PO SCH (22:48)
[2018-09-24] MEDS: INSULIN GLARGINE,HUM.REC.ANLOG 1,000 UNIT/10 ML VIAL SUBCUT SCH (22:49)
[2018-09-25] MEDS: PIPERACILLIN SODIUM/TAZOBACTAM 2.25 GM in NORMAL SALINE 50 ML IV SCH ×2 (05:49→14:23)
[2018-09-25] MEDS: PANTOPRAZOLE SODIUM 40 MG TABLET.DR PO SCH ×2 (05:54→17:03)
[2018-09-25] MEDS: HEPARIN SOD (PORCINE) 5,000 UNIT/ML 1 ML SYRINGE SUBCUT SCH ×3 (05:54→22:43)
[2018-09-25] MEDS: INSULIN LISPRO 100 UNIT/ML 3 ML VIAL SUBCUT SCH ×4 (08:17→22:42)
[2018-09-25] MEDS: IPRATROPIUM/ALBUTEROL 0.5-2.5 MG/3 ML AMPUL NEB SCH ×4 (08:45→19:54)
[2018-09-25] MEDS: FINASTERIDE 5 MG TABLET PO SCH (09:29)
[2018-09-25] MEDS: ASPIRIN 81 MG TABLET, CHEWABLE PO SCH (09:42)
[2018-09-25] MEDS: GENTAMICIN SULFATE 0.1% CREAM 15 GM TP SCH (09:43)
[2018-09-25] MEDS: ESCITALOPRAM OXALATE 10 MG TABLET PO SCH (09:43)
[2018-09-25 10:27] LABS: ABSOLUTE BASOPHILS # (AUTO) 0.1 10^3/uL (0.0-0.2); ABSOLUTE EOSINOPHILS # (AUTO) 0.2 10^3/uL (0.0-0.6); ABSOLUTE NEUT (AUTO) 9.9 10^3/uL (1.7-8.2); BASOPHILS % (AUTO) 1.1 % (0-2); HEMATOCRIT 27.8 % (37.9-51.0); MEAN CORPUSCULAR HEMOGLOBIN 30.7 pg (27.0-33.4); MEAN CORPUSCULAR HGB CONC 32.5 g/dL (32.0-36.0); MEAN CORPUSCULAR VOLUME 95 fl (80-97); MONOCYTES % (AUTO) 7.8 % (3-13); PLATELET COUNT 307 10^3/uL (150-450); RED BLOOD COUNT 2.93 10^6/uL (4.35-5.55); SEGMENTED NEUTROPHILS % (AUTO) 81.1 % (42-78); TOTAL CELLS COUNTED % (AUTO) 100 %; WHITE BLOOD COUNT 12.2 10^3/uL (4.0-10.5)
[2018-09-25 10:46] LABS: ANION GAP 16 (5-19); BLOOD UREA NITROGEN 41 mg/dL (7-20); CALCIUM 7.2 mg/dL (8.4-10.2); CARBON DIOXIDE 26 mmol/L (22-30); CHLORIDE 96 mmol/L (98-107); GLUCOSE 235 mg/dL (75-110); POTASSIUM 3.3 mmol/L (3.6-5.0); SODIUM 137.9 mmol/L (137-145)
--- NOTE | 2018-09-25 15:00 | PDOC PROGRESS REPORT ---
Subjective Progress Note for:: 09/25/18 Subjective:: 09/24: Assumed care. Chart reviewed. This is a 67 yr old male with a PMH of ESRD on peritoneal dialysis, congestive heart failure, coronary artery disease, [place] with stent placement, hypertension, hyperlipidemia, COPD with history of respiratory failure, type 2 diabetes mellitus, BPH, diverticulitis, and depression who presented with acute urinary retention. Patient reportedly also was having hypotension with a blood pressure in the 70s systolic at home. He was found to have leukocytosis and UTI on admission. Patient had Moraes catheter placement yesterday and per RN, there was significant purulent drainage from the catheter which they described as "oatmeal-like" output. Last night, patient's blood pressure dropped to 80/40s and he was started on dopamine drip. This morning, he appears comfortable and he says that he feels better. Patient does state now that he had urinary retention but also was having dysuria at home which he described as a burning sensation when he was peeing (he only makes minimal UO at home). Note of few purulent material on the urine from the Moraes. Appears purulent discharge is starting to clear out. Will wean off dopamine today. 09/25: No acute event overnight. He was weaned off dopamine drip yesterday morning and blood pressures have remained stable. He continues to improve. Patient does have episodes of feeling flushed and feeling warm lasting for 2 to 3 minutes. He does develop significant diaphoresis during this event and occasionally associated bowel incontinence. He says that this has happened more than a year ago but has been happening more frequently in the past few months. He denies any chest pain or shortness of breath during these episodes. He continues to have occasional purulent material on the urine from the Moraes. Reason For Visit: SEPSIS Physical Exam Vital Signs: Temp Pulse Resp BP Pulse Ox 97.9 F 82 16 123/60 96 09/25/18 07:25 09/25/18 11:57 09/25/18 11:57 09/25/18 10:09 09/25/18 08:45 Intake & Output 09/24/18 09/25/18 09/26/18 06:59 06:59 06:59 Intake Total 5792 7799 2580 Output Total 3574 1428 1900 Balance 601 1375 680 Weight 202 lb 2.622 oz 204 lb 9.423 oz 196 lb 6.91 oz General appearance: PRESENT: no acute distress, well-developed, well-nourished Head exam: PRESENT: atraumatic, normocephalic Eye exam: PRESENT: conjunctiva pink, EOMI, PERRLA. ABSENT: scleral icterus Ear exam: PRESENT: normal external ear exam Mouth exam: PRESENT: moist, tongue midline Neck exam: ABSENT: carotid bruit, JVD, lymphadenopathy, thyromegaly Respiratory exam: PRESENT: clear to auscultation yair. ABSENT: rales, rhonchi, wheezes Cardiovascular exam: PRESENT: RRR. ABSENT: diastolic murmur, rubs, systolic murmur Pulses: PRESENT: normal dorsalis pedis pul GI/Abdominal exam: PRESENT: normal bowel sounds, soft. ABSENT: distended, guarding, mass, organolmegaly, rebound, tenderness Rectal exam: PRESENT: deferred Extremities exam: PRESENT: full ROM. ABSENT: calf tenderness, clubbing, pedal edema Neurological exam: PRESENT: alert, awake, oriented to person, oriented to place, oriented to time, oriented to situation, CN II-XII grossly intact. ABSENT: motor sensory deficit Results Laboratory Results: 09/25/18 10:15 09/25/18 10:15 09/25/18 09/25/18 10:15 10:15 WBC 12.2 H RBC 2.93 L Hgb 9.0 L Hct 27.8 L MCV 95 MCH 30.7 MCHC 32.5 RDW 18.0 H Plt Count 307 Seg Neutrophils % 81.1 H Lymphocytes % 8.0 L Monocytes % 7.8 Eosinophils % 2.0 Basophils % 1.1 Absolute Neutrophils 9.9 H Absolute Lymphocytes 1.0 Absolute Monocytes 1.0 Absolute Eosinophils 0.2 Absolute Basophils 0.1 Sodium 137.9 Potassium 3.3 L Chloride 96 L Carbon Dioxide 26 Anion Gap 16 BUN 41 H Creatinine 7.41 H Est GFR ( Amer) 9 L Est GFR (Non-Af Amer) 7 L Glucose 235 H Calcium 7.2 L 09/23/18 11:00 Catheterized Urine Urine Culture - Final C.albicans/C.dubliniensis 09/23/18 09/23/18 09/23/18 10:00 10:00 21:10 Creatine Kinase 155 121 CK-MB (CK-2) 8.07 H Troponin I NT-Pro-B Natriuret Pep 09/23/18 09/23/18 09/24/18 21:10 21:10 03:15 Creatine Kinase 95 CK-MB (CK-2) 6.03 H Troponin I 0.079 NT-Pro-B Natriuret Pep 09/24/18 09/24/18 03:15 03:15 Creatine Kinase CK-MB (CK-2) 4.97 H Troponin I 0.083 NT-Pro-B Natriuret Pep 56087 H Assessment and Plan - Diagnosis (1) Severe sepsis Is this a current diagnosis for this admission?: Yes Plan: Secondary to acute pyelonephritis. 09/24: Wean off dopamine drip today. Continue IV antibiotics pending final culture results. 09/25: Improving. Blood pressures stable off dopamine. Urine culture grew Yady. Diflucan added. (2) Acute pyelonephritis Is this a current diagnosis for this admission?: Yes Plan: 09/24: Continue IV antibiotics. De-escalate tomorrow likely after cultures are resulted. 09/25: Discontinue vancomycin. DC Zosyn and switch to Rocephin. Diflucan added. (3) Acute urinary retention Is this a current diagnosis for this admission?: Yes Plan: Likely related to patient's urinary tract infection. Note occasional purulent material from the urine on the Moraes. (4) Chronic renal failure, stage 5 Is this a current diagnosis for this admission?: Yes Plan: On peritoneal dialysis. Nephrology following. (5) HTN (hypertension) Is this a current diagnosis for this admission?: Yes Plan: 09/24: Hold home medications for now due to low normal blood pressures. 09/25: Blood pressures in the 120/60s. - Time Time Spent with patient: 25-34 minutes
--- NOTE | 2018-09-25 15:58 | PDOC PROGRESS REPORT ---
Subjective Progress Note for:: 09/25/18 Subjective:: The patient was seen laying down in his bed. At the time he had no complaints of chest pain, shortness of breath, diarrhea, constipation, nausea, vomiting, fevers, or chills. His only issue that he has been having is that he is not getting out the same amount of fluid as he is putting in for his peritoneal dialysis exchanges. Blood pressures have also been low. Currently on antibiotics for a UTI. Reason For Visit: SEPSIS Physical Exam Vital Signs: Temp Pulse Resp BP Pulse Ox 97.9 F 82 16 123/60 96 09/25/18 07:25 09/25/18 11:57 09/25/18 11:57 09/25/18 10:09 09/25/18 08:45 Intake & Output 09/24/18 09/25/18 09/26/18 06:59 06:59 06:59 Intake Total 5746 7750 2580 Output Total 5145 6375 1900 Balance 601 1375 680 Weight 91.7 kg 92.8 kg 89.1 kg General appearance: PRESENT: no acute distress, well-developed, well-nourished Mouth exam: PRESENT: moist, neck supple Neck exam: ABSENT: JVD, tracheal deviation Respiratory exam: PRESENT: clear to auscultation yair, crackles - -Coarse throughout due to COPD. ABSENT: accessory muscle use, rales, rhonchi, wheezes Cardiovascular exam: PRESENT: RRR, +S1, +S2. ABSENT: rubs GI/Abdominal exam: PRESENT: soft. ABSENT: tenderness Extremities exam: ABSENT: tenderness, +1 edema, +2 edema Musculoskeletal exam: PRESENT: normal inspection. ABSENT: tenderness Neurological exam: PRESENT: alert, awake, oriented to person, oriented to place, oriented to time, oriented to situation Psychiatric exam: PRESENT: appropriate affect, normal mood Skin exam: PRESENT: dry, intact, warm Results Laboratory Results: 09/25/18 10:15 09/25/18 10:15 09/25/18 09/25/18 10:15 10:15 WBC 12.2 H RBC 2.93 L Hgb 9.0 L Hct 27.8 L MCV 95 MCH 30.7 MCHC 32.5 RDW 18.0 H Plt Count 307 Seg Neutrophils % 81.1 H Lymphocytes % 8.0 L Monocytes % 7.8 Eosinophils % 2.0 Basophils % 1.1 Absolute Neutrophils 9.9 H Absolute Lymphocytes 1.0 Absolute Monocytes 1.0 Absolute Eosinophils 0.2 Absolute Basophils 0.1 Sodium 137.9 Potassium 3.3 L Chloride 96 L Carbon Dioxide 26 Anion Gap 16 BUN 41 H Creatinine 7.41 H Est GFR ( Amer) 9 L Est GFR (Non-Af Amer) 7 L Glucose 235 H Calcium 7.2 L 09/23/18 11:00 Catheterized Urine Urine Culture - Final C.albicans/C.dubliniensis 09/23/18 09/23/18 09/23/18 10:00 10:00 21:10 Creatine Kinase 155 121 CK-MB (CK-2) 8.07 H Troponin I NT-Pro-B Natriuret Pep 09/23/18 09/23/18 09/24/18 21:10 21:10 03:15 Creatine Kinase 95 CK-MB (CK-2) 6.03 H Troponin I 0.079 NT-Pro-B Natriuret Pep 09/24/18 09/24/18 03:15 03:15 Creatine Kinase CK-MB (CK-2) 4.97 H Troponin I 0.083 NT-Pro-B Natriuret Pep 54915 H Assessment & Plan - Diagnosis (1) End-stage renal disease on peritoneal dialysis Is this a current diagnosis for this admission?: Yes Plan: We will continue with peritoneal dialysis exchanges. Most likely reason for not getting the fluid back in all of his exchanges is due to his low blood pressure. His body is currently using the peritoneal dialysis fluid to maintain a proper blood pressure. It is okay as long as he does not start to show signs of fluid overload. (2) UTI (urinary tract infection) Qualifiers: Urinary tract infection type: site unspecified Hematuria presence: without hematuria Qualified Code(s): N39.0 - Urinary tract infection, site not specified Is this a current diagnosis for this admission?: Yes Plan: Currently on Rocephin (3) Hypotension Is this a current diagnosis for this admission?: Yes Plan: Possible early signs of sepsis, currently his body is retaining some fluid from his peritoneal dialysis exchanges. This will help keep his blood pressures in t he proper area. Monitor closely. (4) Anemia in chronic kidney disease Is this a current diagnosis for this admission?: Yes Plan: Receives Procrit at the outpatient dialysis center. will also get labs for anemia (5) Diabetes mellitus type 2 in obese Is this a current diagnosis for this admission?: Yes - Notes Notes: Case was discussed with Dr. Evnas
--- NOTE | 2018-09-25 16:01 | RADIOLOGY REPORT (SQ) ---
EXAM DESCRIPTION: CT ABD/PELVIS NO ORAL OR IV COMPLETED DATE/TIME: 09/25/2018 3:01 pm REASON FOR STUDY: pyelonephritis, purulent drainage from valente COMPARISON: None. TECHNIQUE: CT scan of the abdomen and pelvis performed without intravenous or oral contrast. Images reviewed with lung, soft tissue, and bone windows. Reconstructed coronal and sagittal MPR images revi ewed. All images stored on PACS. All CT scanners at this facility use dose modulation, iterative reconstruction, and/or weight based d osing when appropriate to reduce radiation dose to as low as reasonably achievable (ALARA). [facility]: Dose Right [facility]: CareDose [facility]: Dose Right [facility]: Teradose 4D [facility]: [employer] RADIATION DOSE: CT Rad equipment meets quality standard of care and radiation dose reduction techniq ues were employed. CTDIvol: 15.3 mGy. DLP: 918 mGy-cm.mGy. LIMITATIONS: None. FINDINGS: LOWER CHEST: Small right pleural effusion. Mild subsegmental atelectasis in the right low er lobe. NON-CONTRASTED LIVER, SPLEEN, ADRENALS: Evaluation limited by lack of IV contrast. No identified sign ificant masses. PANCREAS: No masses. No peripancreatic inflammatory changes. GALLBLADDER: No identified stones by CT criteria. No inflammatory changes to suggest cholecystitis. RIGHT KIDNEY AND URETER: Cortical thinning. No suspicious masses. Mild peripelvic stranding. No si gnificant calcifications. No hydronephrosis or hydroureter. LEFT KIDNEY AND URETER: Cortical thinning. No suspicious masses. No perinephric stranding. No sign ificant calcifications. No hydronephrosis or hydroureter. AORTA AND RETROPERITONEUM: No aneurysm. No retroperitoneal masses or adenopathy. BOWEL AND PERITONEAL CAVITY: No obvious bowel mass. There is free fluid in the abdomen and pelvis. There appears to be a peritoneal dialysis catheter with the end in the right lower quadrant. APPENDIX: Not identified. PELVIS, BLADDER, AND ABDOMINAL WALL:Free fluid. There is Valente catheter in the bladder. BONES: No significant findings. OTHER: No other significant finding. IMPRESSION: Small right pleural effusion. Mild peripelvic stranding in the right kidney. No signif icant perinephric stranding. No significant evidence of pyelonephritis. There is free fluid in the abdomen and pelvis with what appears to represent a peritoneal dialysis catheter. COMMENT: Quality ID # [id number]: Final reports with documentation of one or more dose reduction techniques (e.g., Automated exposure control, adjustment of the mA and/or kV according to patient size, use of iterative reconstruction technique) TECHNICAL DOCUMENTATION: JOB ID: [id number] [employer]- All Rights Reserved Reading location - IP/workstation name: [email or web address]
[2018-09-25] MEDS: FLUCONAZOLE 100 MG TABLET PO SCH (17:03)
[2018-09-25] MEDS: INSULIN GLARGINE,HUM.REC.ANLOG 1,000 UNIT/10 ML VIAL SUBCUT SCH (22:42)
[2018-09-25] MEDS: ATORVASTATIN CALCIUM 80 MG TABLET PO SCH (22:43)
[2018-09-26] MEDS: GUAIFENESIN/D-METHORPHAN (200-20 MG) SYRUP 10 ML PO PRN ×2 (00:06→22:35)
[2018-09-26] MEDS: PANTOPRAZOLE SODIUM 40 MG TABLET.DR PO SCH ×2 (05:15→16:42)
[2018-09-26] MEDS: HEPARIN SOD (PORCINE) 5,000 UNIT/ML 1 ML SYRINGE SUBCUT SCH ×3 (05:15→22:16)
[2018-09-26 06:07] LABS: ABSOLUTE RETICS # 0.065 10^6/uL (0.028-0.122); RETICULOCYTE COUNT (AUTO) 2.39 % (0.66-2.85)
[2018-09-26 06:27] LABS: IRON(TIBC) 25.6 ug/dL (49-181)
[2018-09-26 07:43] LABS: FOLATE 8.35 ng/mL (>2.76)
[2018-09-26] MEDS: IPRATROPIUM/ALBUTEROL 0.5-2.5 MG/3 ML AMPUL NEB SCH ×4 (08:42→20:52)
[2018-09-26] MEDS: INSULIN LISPRO 100 UNIT/ML 3 ML VIAL SUBCUT SCH ×4 (08:54→22:35)
[2018-09-26] MEDS ORDERED: CEFTRIAXONE 1 GM/D5W RTU 1 GM/50 ML RTUPB IV SCH (10:00)
[2018-09-26] MEDS: FINASTERIDE 5 MG TABLET PO SCH (11:14)
[2018-09-26] MEDS: ASPIRIN 81 MG TABLET, CHEWABLE PO SCH (11:14)
[2018-09-26] MEDS: GENTAMICIN SULFATE 0.1% CREAM 15 GM TP SCH (11:15)
[2018-09-26] MEDS: ESCITALOPRAM OXALATE 10 MG TABLET PO SCH (11:15)
[2018-09-26] MEDS: CEFTRIAXONE SODIUM 1,000 MG in DEXTROSE 5%-WATER 50 ML IV SCH (11:15)
--- NOTE | 2018-09-26 13:43 | PDOC PROGRESS REPORT ---
Subjective Progress Note for:: 09/26/18 Subjective:: 09/24: Assumed care. Chart reviewed. This is a 67 yr old male with a PMH of ESRD on peritoneal dialysis, congestive heart failure, coronary artery disease, [place] with stent placement, hypertension, hyperlipidemia, COPD with history of respiratory failure, type 2 diabetes mellitus, BPH, diverticulitis, and depression who presented with acute urinary retention. Patient reportedly also was having hypotension with a blood pressure in the 70s systolic at home. He was found to have leukocytosis and UTI on admission. Patient had Moraes catheter placement yesterday and per RN, there was significant purulent drainage from the catheter which they described as "oatmeal-like" output. Last night, patient's blood pressure dropped to 80/40s and he was started on dopamine drip. This morning, he appears comfortable and he says that he feels better. Patient does state now that he had urinary retention but also was having dysuria at home which he described as a burning sensation when he was peeing (he only makes minimal UO at home). Note of few purulent material on the urine from the Moraes. Appears purulent discharge is starting to clear out. Will wean off dopamine today. 09/25: He was weaned off dopamine drip yesterday morning and blood pressures have remained stable. He continues to improve. Patient does have episodes of feeling flushed and feeling warm lasting for 2 to 3 minutes. He does develop significant diaphoresis during this event and occasionally associated bowel incontinence. He says that this has happened more than a year ago but has been happening more frequently in the past few months. He denies any chest pain or shortness of breath during these episodes. He continues to have occasional purulent material on the urine from the Moraes. 09/26: No acute event overnight. He had some loose stools this morning. Denies chest pain, shortness of breath or abdominal pain. He diid have 2 episodes of flushing and diaphoresis last night. These episodes raise concern for possible carcinoid syndrome. Reason For Visit: SEPSIS Physical Exam Vital Signs: Temp Pulse Resp BP Pulse Ox 97.6 F 85 16 146/48 H 96 09/26/18 08:07 09/26/18 12:00 09/26/18 08:54 09/26/18 12:00 09/26/18 08:54 Intake & Output 09/25/18 09/26/18 09/27/18 06:59 06:59 06:59 Intake Total 7750 7750 5000 Output Total 6375 7250 4800 Balance 1375 500 200 Weight 204 lb 9.423 oz 213 lb 6.519 oz 211 lb 13.828 oz General appearance: PRESENT: no acute distress, well-developed, well-nourished Head exam: PRESENT: atraumatic, normocephalic Eye exam: PRESENT: conjunctiva pink, EOMI, PERRLA. ABSENT: scleral icterus Ear exam: PRESENT: normal external ear exam Mouth exam: PRESENT: moist, tongue midline Neck exam: ABSENT: carotid bruit, JVD, lymphadenopathy, thyromegaly Respiratory exam: PRESENT: clear to auscultation yair. ABSENT: rales, rhonchi, wheezes Cardiovascular exam: PRESENT: RRR. ABSENT: diastolic murmur, rubs, systolic murmur Pulses: PRESENT: normal dorsalis pedis pul GI/Abdominal exam: PRESENT: normal bowel sounds, soft. ABSENT: distended, guarding, mass, organolmegaly, rebound, tenderness Rectal exam: PRESENT: deferred Extremities exam: PRESENT: full ROM. ABSENT: calf tenderness, clubbing, pedal edema Neurological exam: PRESENT: alert, awake, oriented to person, oriented to place, oriented to time, oriented to situation, CN II-XII grossly intact. ABSENT: motor sensory deficit Results Laboratory Results: 09/25/18 10:15 09/25/18 10:15 09/26/18 09/26/18 05:41 05:41 Retic Count (auto) 2.39 Absolute Retic 0.065 Iron 25.6 L TIBC 160 L % Saturation 16 Ferritin 783.00 H Vitamin B12 501.0 Folate 8.35 09/23/18 09/23/18 09/23/18 10:00 10:00 21:10 Creatine Kinase 155 121 CK-MB (CK-2) 8.07 H Troponin I NT-Pro-B Natriuret Pep 09/23/18 09/23/18 09/24/18 21:10 21:10 03:15 Creatine Kinase 95 CK-MB (CK-2) 6.03 H Troponin I 0.079 NT-Pro-B Natriuret Pep 09/24/18 09/24/18 03:15 03:15 Creatine Kinase CK-MB (CK-2) 4.97 H Troponin I 0.083 NT-Pro-B Natriuret Pep [id number] H Impressions: Abdomen/Pelvis CT 09/25/18 14:20 IMPRESSION: Small right pleural effusion. Mild peripelvic stranding in the right kidney. No significant perinephric stranding. No significant evidence of pyelonephritis. There is free fluid in the abdomen and pelvis with what appears to represent a peritoneal dialysis catheter. Assessment and Plan - Diagnosis (1) Severe sepsis Is this a current diagnosis for this admission?: Yes Plan: Secondary to acute pyelonephritis. 09/24: Wean off dopamine drip today. Continue IV antibiotics pending final culture results. 09/25: Improving. Blood pressures stable off dopamine. Urine culture grew Yady. Diflucan added. 09/26: Discontinued vancomycin and Zosyn, switched to Rocephin. Continue Diflucan. (2) Acute pyelonephritis Is this a current diagnosis for this admission?: Yes Plan: 09/24: Continue IV antibiotics. De-escalate tomorrow likely after cultures are resulted. 09/25: Discontinue vancomycin. DC Zosyn and switch to Rocephin. Diflucan added. (3) Acute urinary retention Is this a current diagnosis for this admission?: Yes Plan: Likely related to patient's urinary tract infection. Note occasional purulent m aterial from the urine on the Moraes. (4) Chronic renal failure, stage 5 Is this a current diagnosis for this admission?: Yes Plan: On peritoneal dialysis. Nephrology following. (5) HTN (hypertension) Is this a current diagnosis for this admission?: Yes Plan: 09/24: Hold home medications for now due to low normal blood pressures. 09/25: Blood pressures in the 120/60s. 09/26: Blood pressures start to run high now. Resume Coreg and Imdur. (6) Carcinoid syndrome Is this a current diagnosis for this admission?: Yes Plan: Patient has had episodes of flushing, diaphoresis and occasionally associated with diarrhea. He says this is been going on for more than a year but has been more frequent in the past few months. This raises the possibility of a carcinoid syndrome. 5-HIAA testing ordered. - Time Time Spent with patient: 25-34 minutes
--- NOTE | 2018-09-26 14:22 | PDOC PROGRESS REPORT ---
Subjective Progress Note for:: 09/26/18 Subjective:: Patient has no complaints today. In terms of his peritoneal dialysis he has not had any good ultrafiltration for the last 24 to 48 hours. His blood pressure is now improved and he has been using 2.5% PD solution but despite that there is no significant ultrafiltration so far. He denies any nausea, vomiting, chest pains no shortness of breath. His urine is still cloudy but slowly improving. CT scan of the abdomen was done yesterday which did not show any pyelonephritis no significant perinephric stranding. Reason For Visit: SEPSIS Physical Exam Vital Signs: Temp Pulse Resp BP Pulse Ox 97.3 F 83 16 146/48 H 93 09/26/18 11:58 09/26/18 12:28 09/26/18 12:28 09/26/18 12:00 09/26/18 12:28 Intake & Output 09/25/18 09/26/18 09/27/18 06:59 06:59 06:59 Intake Total 7750 7750 5050 Output Total 6375 7250 4800 Balance 1375 500 250 Weight 92.8 kg 96.8 kg 96.1 kg Exam: General appearance: PRESENT: no acute distress, cooperative, well-developed, well-nourished Head exam: PRESENT: atraumatic, normocephalic Eye exam: PRESENT: conjunctiva pale, PERRLA. ABSENT: scleral icterus Neck exam: ABSENT: JVD Respiratory exam: PRESENT: Normal breath sounds. ABSENT: crackles, rales, rhonchi, unlabored, wheezes Cardiovascular exam: PRESENT: Regular rate rhythm -+S1, +S2. ABSENT: diastolic murmur, systolic murmur GI/Abdominal exam: PRESENT: normal bowel sounds, soft. ABSENT: guarding, mass, tenderness Extremities exam: ABSENT: No edema Neurological exam: PRESENT: alert, awake, oriented to person, place and time. Skin exam: PRESENT: dry, warm, Cardiovascular exam: PRESENT: RRR, +S1, +S2. ABSENT: rubs GI/Abdominal exam: PRESENT: soft. ABSENT: tenderness Results Laboratory Results: 09/25/18 10:15 09/25/18 10:15 09/26/18 09/26/18 05:41 05:41 Retic Count (auto) 2.39 Absolute Retic 0.065 Iron 25.6 L TIBC 160 L % Saturation 16 Ferritin 783.00 H Vitamin B12 501.0 Folate 8.35 09/23/18 09/23/18 09/23/18 10:00 10:00 21:10 Creatine Kinase 155 121 CK-MB (CK-2) 8.07 H Troponin I NT-Pro-B Natriuret Pep 09/23/18 09/23/18 09/24/18 21:10 21:10 03:15 Creatine Kinase 95 CK-MB (CK-2) 6.03 H Troponin I 0.079 NT-Pro-B Natriuret Pep 09/24/18 09/24/18 03:15 03:15 Creatine Kinase CK-MB (CK-2) 4.97 H Troponin I 0.083 NT-Pro-B Natriuret Pep 08725 H Impressions: Abdomen/Pelvis CT 09/25/18 14:20 IMPRESSION: Small right pleural effusion. Mild peripelvic stranding in the right kidney. No significant perinephric stranding. No significant evidence of pyelonephritis. There is free fluid in the abdomen and pelvis with what appears to represent a peritoneal dialysis catheter. Assessment & Plan - Diagnosis (1) End-stage renal disease on peritoneal dialysis Is this a current diagnosis for this admission?: Yes Plan: I will change his PD solution to alternating 4.25 and 2.5% for as long as systolic blood pressures greater than 110. If systolic blood pressures less than 110 will use the 1.5% solution. Patient has some ultrafiltration issue so he has been using Extraneal solution as an outpatient but it is not available here in the hospital. Continue all other orders per CAPD otherwise. We will continue to monitor. (2) UTI (urinary tract infection) Qualifiers: Urinary tract infection type: site unspecified Hematuria presence: without hematuria Qualified Code(s): N39.0 - Urinary tract infection, site not specified Is this a current diagnosis for this admission?: Yes Plan: On IV ceftriaxone. (3) Hypotension Is this a current diagnosis for this admission?: Yes Plan: Much improvement currently blood pressures are within acceptable limits. (4) Anemia in chronic kidney disease Is this a current diagnosis for this admission?: Yes Plan: We will get a dose of Retacrit 20,000 units subcutaneously x1 dose today. (5) Hypokalemia Is this a current diagnosis for this admission?: Yes Plan: Start potassium chloride 20 mEq p.o. daily. (6) Acute urinary retention Is this a current diagnosis for this admission?: Yes (7) Diabetes mellitus type 2 in obese Is this a current diagnosis for this admission?: Yes - Time Time with patient: 15-25 minutes
[2018-09-26] MEDS ORDERED: EPOETIN ALFA-EPBX 10,000 UNIT/ML VIAL (RENAL) SUBCUT ONE (15:30)
[2018-09-26] MEDS ORDERED: [UNRECOGNIZED DRUG - OTHER] SUBCUT ONE ×4 (15:30)
[2018-09-26] MEDS ORDERED: EPOETIN ALFA EPBX SUBCUT ONE ×4 (15:30)
[2018-09-26] MEDS: POTASSIUM CHLORIDE 10 MEQ CAPSULE.ER PO SCH (16:42)
[2018-09-26] MEDS: FLUCONAZOLE 100 MG TABLET PO SCH (17:10)
[2018-09-26] MEDS: CARVEDILOL 12.5 MG TABLET PO SCH (21:32)
[2018-09-26] MEDS: ATORVASTATIN CALCIUM 80 MG TABLET PO SCH (21:33)
[2018-09-26] MEDS: INSULIN GLARGINE,HUM.REC.ANLOG 1,000 UNIT/10 ML VIAL SUBCUT SCH (22:36)
[2018-09-27] MEDS: HEPARIN SOD (PORCINE) 5,000 UNIT/ML 1 ML SYRINGE SUBCUT SCH ×3 (05:36→21:44)
[2018-09-27] MEDS: PANTOPRAZOLE SODIUM 40 MG TABLET.DR PO SCH ×2 (05:36→17:28)
[2018-09-27 06:19] LABS: ABSOLUTE EOSINOPHILS # (AUTO) 0.4 10^3/uL (0.0-0.6); ABSOLUTE LYMPHOCYTES (AUTO) 1.1 10^3/uL (0.5-4.7); ABSOLUTE MONOCYTES (AUTO) 0.9 10^3/uL (0.1-1.4); ABSOLUTE NEUT (AUTO) 6.6 10^3/uL (1.7-8.2); BASOPHILS % (AUTO) 0.2 % (0-2); EOSINOPHILS % (AUTO) 4.5 % (0-6); HEMATOCRIT 28.4 % (37.9-51.0); HEMOGLOBIN 9.4 g/dL (13.5-17.0); LYMPHOCYTES % (AUTO) 12.4 % (13-45); MEAN CORPUSCULAR HEMOGLOBIN 31.1 pg (27.0-33.4); MEAN CORPUSCULAR VOLUME 94 fl (80-97); MONOCYTES % (AUTO) 9.9 % (3-13); PLATELET COUNT 306 10^3/uL (150-450); RED BLOOD COUNT 3.02 10^6/uL (4.35-5.55); RED CELL DISTRIBUTION WIDTH 17.5 % (11.5-14.0); TOTAL CELLS COUNTED % (AUTO) 100 %
[2018-09-27] MEDS: ACETAMINOPHEN 325 MG TABLET PO PRN (06:24)
[2018-09-27 06:40] LABS: ANION GAP 14 (5-19); BLOOD UREA NITROGEN 40 mg/dL (7-20); CALCIUM 7.6 mg/dL (8.4-10.2); CARBON DIOXIDE 26 mmol/L (22-30); CHLORIDE 101 mmol/L (98-107); GLUCOSE 127 mg/dL (75-110); POTASSIUM 3.3 mmol/L (3.6-5.0); SODIUM 141.2 mmol/L (137-145)
[2018-09-27] MEDS: INSULIN LISPRO 100 UNIT/ML 3 ML VIAL SUBCUT SCH ×4 (08:23→21:46)
[2018-09-27] MEDS: IPRATROPIUM/ALBUTEROL 0.5-2.5 MG/3 ML AMPUL NEB SCH ×4 (08:42→20:40)
[2018-09-27] MEDS: CEFTRIAXONE SODIUM 1,000 MG in DEXTROSE 5%-WATER 50 ML IV SCH (10:17)
[2018-09-27] MEDS: CARVEDILOL 12.5 MG TABLET PO SCH ×2 (10:17→21:44)
[2018-09-27] MEDS: FOLIC ACID/VITAMIN B COMP W-C CAPSULE PO SCH (10:17)
[2018-09-27] MEDS: ASPIRIN 81 MG TABLET, CHEWABLE PO SCH (10:18)
[2018-09-27] MEDS: GENTAMICIN SULFATE 0.1% CREAM 15 GM TP SCH (10:18)
[2018-09-27] MEDS: ISOSORBIDE MONONITRATE 30 MG TAB.ER.24H PO SCH (10:18)
[2018-09-27] MEDS: ESCITALOPRAM OXALATE 10 MG TABLET PO SCH (10:18)
[2018-09-27] MEDS: POTASSIUM CHLORIDE 10 MEQ CAPSULE.ER PO SCH ×2 (10:18→14:36)
[2018-09-27] MEDS: FINASTERIDE 5 MG TABLET PO SCH (10:18)
--- NOTE | 2018-09-27 12:16 | PDOC PROGRESS REPORT ---
Subjective Progress Note for:: 09/27/18 Subjective:: Patient started to have a little bit more ultrafiltration using the 4.5% PD solution starting yesterday. Otherwise is doing well and has no new complaints. His urine is still cloudy but may be slightly better every single day. Reason For Visit: SEPSIS Physical Exam Vital Signs: Temp Pulse Resp BP Pulse Ox 97.5 F 68 14 129/47 H 98 09/27/18 03:56 09/27/18 09:00 09/27/18 08:43 09/27/18 09:00 09/27/18 08:43 Intake & Output 09/26/18 09/27/18 09/28/18 06:59 06:59 06:59 Intake Total 7750 16853 2550 Output Total 7250 46086 2300 Balance 500 820 250 Weight 96.8 kg 95.9 kg 94.2 kg Exam: General appearance: PRESENT: no acute distress, cooperative, well-developed, well-nourished Head exam: PRESENT: atraumatic, normocephalic Eye exam: PRESENT: conjunctiva pale, PERRLA. ABSENT: scleral icterus Neck exam: ABSENT: JVD Respiratory exam: PRESENT: Normal breath sounds. ABSENT: crackles, rales, rhonchi, unlabored, wheezes Cardiovascular exam: PRESENT: Regular rate rhythm -+S1, +S2. ABSENT: diastolic murmur, systolic murmur GI/Abdominal exam: PRESENT: normal bowel sounds, soft. ABSENT: guarding, mass, tenderness Extremities exam: ABSENT: No edema Neurological exam: PRESENT: alert, awake, oriented to person, place and time. Skin exam: PRESENT: dry, warm, Cardiovascular exam: PRESENT: RRR, +S1, +S2. ABSENT: rubs GI/Abdominal exam: PRESENT: soft. ABSENT: tenderness Results Laboratory Results: 09/27/18 06:00 09/27/18 06:00 09/27/18 09/27/18 06:00 06:00 WBC 9.0 RBC 3.02 L Hgb 9.4 L Hct 28.4 L MCV 94 MCH 31.1 MCHC 33.0 RDW 17.5 H Plt Count 306 Seg Neutrophils % 73.0 Lymphocytes % 12.4 L Monocytes % 9.9 Eosinophils % 4.5 Basophils % 0.2 Absolute Neutrophils 6.6 Absolute Lymphocytes 1.1 Absolute Monocytes 0.9 Absolute Eosinophils 0.4 Absolute Basophils 0.0 Sodium 141.2 Potassium 3.3 L Chloride 101 Carbon Dioxide 26 Anion Gap 14 BUN 40 H Creatinine 6.99 H Est GFR ( Amer) 10 L Est GFR (Non-Af Amer) 8 L Glucose 127 H Calcium 7.6 L 09/23/18 09/23/18 09/23/18 10:00 10:00 21:10 Creatine Kinase 155 121 CK-MB (CK-2) 8.07 H Troponin I NT-Pro-B Natriuret Pep 09/23/18 09/23/18 09/24/18 21:10 21:10 03:15 Creatine Kinase 95 CK-MB (CK-2) 6.03 H Troponin I 0.079 NT-Pro-B Natriuret Pep 09/24/18 09/24/18 03:15 03:15 Creatine Kinase CK-MB (CK-2) 4.97 H Troponin I 0.083 NT-Pro-B Natriuret Pep 26307 H Impressions: Abdomen/Pelvis CT 09/25/18 14:20 IMPRESSION: Small right pleural effusion. Mild peripelvic stranding in the right kidney. No significant perinephric stranding. No significant evidence of pyelonephritis. There is free fluid in the abdomen and pelvis with what appears to represent a peritoneal dialysis catheter. Assessment & Plan - Diagnosis (1) End-stage renal disease on peritoneal dialysis Is this a current diagnosis for this admission?: Yes Plan: I change his PD solution to alternating 4.25 and 2.5% for as long as systolic blood pressures greater than 110. If systolic blood pressures less than 110 dannielle l use the 1.5% solution. Patient has some ultrafiltration issue so he has been using Extraneal solution as an outpatient but it is not available here in the hospital. Continue all other orders per CAPD otherwise. We will continue to monitor. (2) UTI (urinary tract infection) Qualifiers: Urinary tract infection type: site unspecified Hematuria presence: without hematuria Qualified Code(s): N39.0 - Urinary tract infection, site not specified Is this a current diagnosis for this admission?: Yes Plan: On IV ceftriaxone. (3) Hypotension Is this a current diagnosis for this admission?: Yes Plan: Much improvement currently blood pressures are within acceptable limits. (4) Anemia in chronic kidney disease Is this a current diagnosis for this admission?: Yes Plan: We gave a dose of Retacrit 20,000 units subcutaneously x1 dose on 7 4. His T sat is 16% so I am going to give him a dose of IV Injectafer 750 mg x 1 dose today. (5) Hypokalemia Is this a current diagnosis for this admission?: Yes Plan: Increase potassium chloride to 40 mEq p.o. daily. (6) Acute urinary retention Is this a current diagnosis for this admission?: Yes (7) Diabetes mellitus type 2 in obese Is this a current diagnosis for this admission?: Yes - Time Time with patient: 15-25 minutes
[2018-09-27] MEDS ORDERED: FERRIC CARBOXYMALTOSE 750 MG in NORMAL SALINE 100 ML IV ONE (14:00)
--- NOTE | 2018-09-27 14:50 | PDOC PROGRESS REPORT ---
Subjective Progress Note for:: 09/27/18 Subjective:: 09/24: Assumed care. Chart reviewed. This is a 67 yr old male with a PMH of ESRD on peritoneal dialysis, congestive heart failure, coronary artery disease, [place] with stent placement, hypertension, hyperlipidemia, COPD with history of respiratory failure, type 2 diabetes mellitus, BPH, diverticulitis, and depression who presented with acute urinary retention. Patient reportedly also was having hypotension with a blood pressure in the 70s systolic at home. He was found to have leukocytosis and UTI on admission. Patient had Moraes catheter placement yesterday and per RN, there was significant purulent drainage from the catheter which they described as "oatmeal-like" output. Last night, patient's blood pressure dropped to 80/40s and he was started on dopamine drip. This morning, he appears comfortable and he says that he feels better. Patient does state now that he had urinary retention but also was having dysuria at home which he described as a burning sensation when he was peeing (he only makes minimal UO at home). Note of few purulent material on the urine from the Moraes. Appears purulent discharge is starting to clear out. Will wean off dopamine today. 09/25: He was weaned off dopamine drip yesterday morning and blood pressures have remained stable. He continues to improve. Patient does have episodes of feeling flushed and feeling warm lasting for 2 to 3 minutes. He does develop significant diaphoresis during this event and occasionally associated bowel incontinence. He says that this has happened more than a year ago but has been happening more frequently in the past few months. He denies any chest pain or shortness of breath during these episodes. He continues to have occasional purulent material on the urine from the Moraes. 09/26: He had some loose stools this morning. Denies chest pain, shortness of breath or abdominal pain. He did have 2 episodes of flushing and diaphoresis last night. These episodes raise concern for possible carcinoid syndrome. 09/27: No acute event overnight. He says that the flushing episodes have been less frequent and he only had one last night. His stools are also better formed today. Minimal purulent material on the Moraes. Plan to remove Moraes catheter tomorrow morning. Reason For Visit: SEPSIS Physical Exam Vital Signs: Temp Pulse Resp BP Pulse Ox 98.1 F 75 14 142/57 H 95 09/27/18 12:05 09/27/18 12:12 09/27/18 12:12 09/27/18 12:05 09/27/18 12:12 Intake & Output 09/26/18 09/27/18 09/28/18 06:59 06:59 06:59 Intake Total 7750 14662 3030 Output Total 7250 89157 2300 Balance 500 820 730 Weight 213 lb 6.519 oz 211 lb 6.773 oz 207 lb 10.807 oz General appearance: PRESENT: no acute distress, well-developed, well-nourished Head exam: PRESENT: atraumatic, normocephalic Eye exam: PRESENT: conjunctiva pink, EOMI, PERRLA. ABSENT: scleral icterus Ear exam: PRESENT: normal external ear exam Mouth exam: PRESENT: moist, tongue midline Neck exam: ABSENT: carotid bruit, JVD, lymphadenopathy, thyromegaly Respiratory exam: PRESENT: clear to auscultation yair. ABSENT: rales, rhonchi, wheezes Cardiovascular exam: PRESENT: RRR. ABSENT: diastolic murmur, rubs, systolic murmur Pulses: PRESENT: normal dorsalis pedis pul GI/Abdominal exam: PRESENT: normal bowel sounds, soft. ABSENT: distended, guarding, mass, organolmegaly, rebound, tenderness Rectal exam: PRESENT: deferred Extremities exam: PRESENT: full ROM. ABSENT: calf tenderness, clubbing, pedal edema Neurological exam: PRESENT: alert, awake, oriented to person, oriented to place, oriented to time, oriented to situation, CN II-XII grossly intact. ABSENT: motor sensory deficit Results Laboratory Results: 09/27/18 06:00 09/27/18 06:00 09/27/18 09/27/18 06:00 06:00 WBC 9.0 RBC 3.02 L Hgb 9.4 L Hct 28.4 L MCV 94 MCH 31.1 MCHC 33.0 RDW 17.5 H Plt Count 306 Seg Neutrophils % 73.0 Lymphocytes % 12.4 L Monocytes % 9.9 Eosinophils % 4.5 Basophils % 0.2 Absolute Neutrophils 6.6 Absolute Lymphocytes 1.1 Absolute Monocytes 0.9 Absolute Eosinophils 0.4 Absolute Basophils 0.0 Sodium 141.2 Potassium 3.3 L Chloride 101 Carbon Dioxide 26 Anion Gap 14 BUN 40 H Creatinine 6.99 H Est GFR ( Amer) 10 L Est GFR (Non-Af Amer) 8 L Glucose 127 H Calcium 7.6 L 09/23/18 09/23/18 09/23/18 10:00 10:00 21:10 Creatine Kinase 155 121 CK-MB (CK-2) 8.07 H Troponin I NT-Pro-B Natriuret Pep 09/23/18 09/23/18 09/24/18 21:10 21:10 03:15 Creatine Kinase 95 CK-MB (CK-2) 6.03 H Troponin I 0.079 NT-Pro-B Natriuret Pep 09/24/18 09/24/18 03:15 03:15 Creatine Kinase CK-MB (CK-2) 4.97 H Troponin I 0.083 NT-Pro-B Natriuret Pep 97282 H Impressions: Abdomen/Pelvis CT 09/25/18 14:20 IMPRESSION: Small right pleural effusion. Mild peripelvic stranding in the right kidney. No significant perinephric stranding. No significant evidence of pyelonephritis. There is free fluid in the abdomen and pelvis with what appears to represent a peritoneal dialysis catheter. Assessment and Plan - Diagnosis (1) Severe sepsis Is this a current diagnosis for this admission?: Yes Plan: Secondary to acute pyelonephritis. 09/24: Wean off dopamine drip today. Continue IV antibiotics pending final culture results. 09/25: Improving. Blood pressures stable off dopamine. Urine culture grew Yady. Diflucan added. 09/26: Discontinued vancomycin and Zosyn, switched to Rocephin. Continue Diflucan. 09/27: Continue Diflucan and Rocephin. (2) Acute pyelonephritis Is this a current diagnosis for this admission?: Yes Plan: As per number 1. (3) Acute urinary retention Is this a current diagnosis for this admission?: Yes Plan: Likely related to patient's urinary tract infection. Note occasional purulent material from the urine on the Moraes. 09/27: Plan to remove Moraes tomorrow morning. (4) Chronic renal failure, stage 5 Is this a current diagnosis for this admission?: Yes Plan: On peritoneal dialysis. Nephrology following. (5) HTN (hypertension) Is this a current diagnosis for this admission?: Yes Plan: 09/24: Hold home medications for now due to low normal blood pressures. 09/25: Blood pressures in the 120/60s. 09/26: Blood pressures start to run high now. Resume Coreg and Imdur. 09/27: BP in the 140/50s. Continue Coreg and Imdur. (6) Carcinoid syndrome Is this a current diagnosis for this admission?: Yes Plan: Patient has had episodes of flushing, diaphoresis and occasionally associated with diarrhea. He says this is been going on for more than a year but has been more frequent in the past few months. This raises the possibility of a carcinoid syndrome. 5-HIAA testing ordered. 09/27: 5-HIAA sent and pending. - Time Time Spent with patient: 25-34 minutes
[2018-09-27] MEDS: FLUCONAZOLE 100 MG TABLET PO SCH (17:28)
[2018-09-27] MEDS: ATORVASTATIN CALCIUM 80 MG TABLET PO SCH (21:44)
[2018-09-27] MEDS: INSULIN GLARGINE,HUM.REC.ANLOG 1,000 UNIT/10 ML VIAL SUBCUT SCH (21:45)
[2018-09-27] MEDS: GUAIFENESIN/D-METHORPHAN (200-20 MG) SYRUP 10 ML PO PRN (22:01)
[2018-09-28] MEDS: PANTOPRAZOLE SODIUM 40 MG TABLET.DR PO SCH ×2 (05:53→16:52)
[2018-09-28] MEDS: HEPARIN SOD (PORCINE) 5,000 UNIT/ML 1 ML SYRINGE SUBCUT SCH ×3 (05:53→22:42)
[2018-09-28] MEDS: IPRATROPIUM/ALBUTEROL 0.5-2.5 MG/3 ML AMPUL NEB SCH ×4 (08:25→19:55)
[2018-09-28] MEDS: INSULIN LISPRO 100 UNIT/ML 3 ML VIAL SUBCUT SCH ×4 (08:51→22:41)
[2018-09-28] MEDS: CARVEDILOL 12.5 MG TABLET PO SCH ×2 (08:59→22:43)
[2018-09-28] MEDS: ASPIRIN 81 MG TABLET, CHEWABLE PO SCH (08:59)
[2018-09-28] MEDS: GENTAMICIN SULFATE 0.1% CREAM 15 GM TP SCH (09:00)
[2018-09-28] MEDS: ESCITALOPRAM OXALATE 10 MG TABLET PO SCH (09:01)
[2018-09-28] MEDS: POTASSIUM CHLORIDE 10 MEQ CAPSULE.ER PO SCH (09:01)
[2018-09-28] MEDS: ISOSORBIDE MONONITRATE 30 MG TAB.ER.24H PO SCH (09:01)
[2018-09-28] MEDS: FINASTERIDE 5 MG TABLET PO SCH (09:02)
[2018-09-28] MEDS: CEFTRIAXONE SODIUM 1,000 MG in DEXTROSE 5%-WATER 50 ML IV SCH (09:02)
[2018-09-28] MEDS: FOLIC ACID/VITAMIN B COMP W-C CAPSULE PO SCH (09:02)
[2018-09-28 09:58] LABS: ANION GAP 13 (5-19); BLOOD UREA NITROGEN 39 mg/dL (7-20); CALCIUM 7.7 mg/dL (8.4-10.2); CARBON DIOXIDE 26 mmol/L (22-30); CHLORIDE 100 mmol/L (98-107); GLUCOSE 256 mg/dL (75-110); POTASSIUM 3.8 mmol/L (3.6-5.0); SODIUM 138.8 mmol/L (137-145)
--- NOTE | 2018-09-28 12:16 | PDOC PROGRESS REPORT ---
Subjective Progress Note for:: 09/28/18 Subjective:: 09/24: Assumed care. Chart and course reviewed. This is a 67 yr old male with a PMH of ESRD on peritoneal dialysis, COPD, congestive heart failure, coronary artery disease, [place] with stent placement, hypertension, hyperlipidemia, COPD with history of respiratory failure, type 2 diabetes mellitus, BPH, diverticulitis, and depression who presented with acute urinary retention. Patient reportedly also was having hypotension with a blood pressure in the 70s systolic at home. He was found to have leukocytosis and UTI on admission. Patient had Moraes catheter placement yesterday and per RN, there was significant purulent drainage from the catheter which they described as "oatmeal-like" output. Last night, patient's blood pressure dropped to 80/40s and he was started on dopamine drip. This morning, he appears comfortable and he says that he feels better. Patient does state now that he had urinary retention but also was having dysuria at home which he described as a burning sensation when he was peeing (he only makes minimal UO at home). Note of few purulent material on the urine from the Moraes. Appears purulent discharge is starting to clear out. Will wean off dopamine today. 09/25: He was weaned off dopamine drip yesterday morning and blood pressures have remained stable. He continues to improve. Patient does have episodes of feeling flushed and feeling warm lasting for 2 to 3 minutes. He does develop significant diaphoresis during this event and occasionally associated bowel incontinence. He says that this has happened more than a year ago but has been happening more frequently in the past few months. He denies any chest pain or shortness of breath during these episodes. He continues to have occasional purulent material on the urine from the Moraes. 09/26: He had some loose stools this morning. Denies chest pain, shortness of breath or abdominal pain. He did have 2 episodes of flushing and diaphoresis last night. These episodes raise concern for possible carcinoid syndrome. 09/27: He says that the flushing episodes have been less frequent and he only had one last night. His stools are also better formed today. Minimal purulent material on the Moraes. Plan to remove Moraes catheter tomorrow morning. 6: No acute event overnight. Urine on the Moraes is clearing up. Plan to remove Moraes catheter today and see if he is able to void on his own now. He had one episode of flushing last night. Denies any other acute complaints. He says he continues to feel better. Reason For Visit: SEPSIS Physical Exam Vital Signs: Temp Pulse Resp BP Pulse Ox 97.5 F 80 20 148/43 H 97 09/28/18 08:41 09/28/18 08:41 09/28/18 08:41 09/28/18 08:41 09/28/18 08:41 Intake & Output 09/27/18 09/28/18 09/29/18 06:59 06:59 06:59 Intake Total 29852 8270 50 Output Total 92294 7802 Balance 820 468 50 Weight 211 lb 6.773 oz 216 lb 4.375 oz General appearance: PRESENT: no acute distress, well-developed, well-nourished Head exam: PRESENT: atraumatic, normocephalic Eye exam: PRESENT: conjunctiva pink, EOMI, PERRLA. ABSENT: scleral icterus Ear exam: PRESENT: normal external ear exam Mouth exam: PRESENT: moist, tongue midline Neck exam: ABSENT: carotid bruit, JVD, lymphadenopathy, thyromegaly Respiratory exam: PRESENT: clear to auscultation yair. ABSENT: rales, rhonchi, wheezes Cardiovascular exam: PRESENT: RRR. ABSENT: diastolic murmur, rubs, systolic murmur Pulses: PRESENT: normal dorsalis pedis pul GI/Abdominal exam: PRESENT: normal bowel sounds, soft. ABSENT: distended, guarding, mass, organolmegaly, rebound, tenderness Rectal exam: PRESENT: deferred Extremities exam: PRESENT: full ROM. ABSENT: calf tenderness, clubbing, pedal edema Neurological exam: PRESENT: alert, awake, oriented to person, oriented to place, oriented to time, oriented to situation, CN II-XII grossly intact. ABSENT: motor sensory deficit Results Laboratory Results: 09/27/18 06:00 09/28/18 09:32 09/28/18 09:32 Sodium 138.8 Potassium 3.8 Chloride 100 Carbon Dioxide 26 Anion Gap 13 BUN 39 H Creatinine 6.56 H Est GFR ( Amer) 10 L Est GFR (Non-Af Amer) 8 L Glucose 256 H Calcium 7.7 L 0709/23/18 09/23/18 10:00 10:00 21:10 Creatine Kinase 155 121 CK-MB (CK-2) 8.07 H Troponin I NT-Pro-B Natriuret Pep 09/23/18 09/23/18 09/24/18 21:10 21:10 03:15 Creatine Kinase 95 CK-MB (CK-2) 6.03 H Troponin I 0.079 NT-Pro-B Natriuret Pep 09/24/18 09/24/18 03:15 03:15 Creatine Kinase CK-MB (CK-2) 4.97 H Troponin I 0.083 NT-Pro-B Natriuret Pep 55530 H Impressions: Abdomen/Pelvis CT 09/25/18 14:20 IMPRESSION: Small right pleural effusion. Mild peripelvic stranding in the right kidney. No significant perinephric stranding. No significant evidence of pyelonephritis. There is free fluid in the abdomen and pelvis with what appears to represent a peritoneal dialysis catheter. Assessment and Plan - Diagnosis (1) Severe sepsis Is this a current diagnosis for this admission?: Yes Plan: Secondary to acute pyelonephritis. 09/24: Wean off dopamine drip today. Continue IV antibiotics pending final culture results. 09/25: Improving. Blood pressures stable off dopamine. Urine culture grew Yady. Diflucan added. 09/26: Discontinued vancomycin and Zosyn, switched to Rocephin. Continue Diflucan. 09/28: Continue Diflucan and Rocephin. (2) Acute pyelonephritis Is this a current diagnosis for this admission?: Yes Plan: As per number 1. (3) Acute urinary retention Is this a current diagnosis for this admission?: Yes Plan: Likely related to patient's urinary tract infection. Note occasional purulent material from the urine on the Moraes. 09/27: Plan to remove Moraes tomorrow morning. 09/28: Remove Moraes cath today. (4) Chronic renal failure, stage 5 Is this a current diagnosis for this admission?: Yes Plan: On peritoneal dialysis. Nephrology following. (5) HTN (hypertension) Is this a current diagnosis for this admission?: Yes Plan: 09/24: Hold home medications for now due to low normal blood pressures. 09/25: Blood pressures in the 120/60s. 09/26: Blood pressures start to run high now. Resume Coreg and Imdur. 09/27: BP in the 140/50s. Continue Coreg and Imdur. (6) Carcinoid syndrome Is this a current diagnosis for this admission?: Yes Plan: Patient has had episodes of flushing, diaphoresis and occasionally associated with diarrhea. He says this is been going on for more than a year but has been more frequent in the past few months. This raises the possibility of a carcinoid syndrome. 5-HIAA testing ordered. 09/27: 5-HIAA sent and pending. (7) Hypokalemia Is this a current diagnosis for this admission?: Yes - Time Time Spent with patient: 25-34 minutes
[2018-09-28] MEDS: FLUCONAZOLE 100 MG TABLET PO SCH (16:59)
[2018-09-28] MEDS: GUAIFENESIN/D-METHORPHAN (200-20 MG) SYRUP 10 ML PO PRN (20:34)
[2018-09-28] MEDS: INSULIN GLARGINE,HUM.REC.ANLOG 1,000 UNIT/10 ML VIAL SUBCUT SCH (22:42)
[2018-09-28] MEDS: ATORVASTATIN CALCIUM 80 MG TABLET PO SCH (22:43)
[2018-09-29 01:07] LABS: APPEARANCE,URINE CLOUDY; COLOR,URINE AMBER; GLUCOSE, URINE 500 mg/dL (NEGATIVE); URINE SPECIFIC GRAVITY 1.017
[2018-09-29 01:08] LABS: BILIRUBIN,URINE NEGATIVE (NEGATIVE); KETONES,URINE NEGATIVE (NEGATIVE); LEUKOCYTE ESTERASE,URINE LARGE (NEGATIVE); NITRITE,URINE NEGATIVE (NEGATIVE); PROTEIN,URINE >=500 mg/dL (NEGATIVE); UROBILINOGEN,URINE NEGATIVE mg/dL (<2.0)
[2018-09-29] MEDS: ACETAMINOPHEN 325 MG TABLET PO PRN (01:24)
[2018-09-29] MEDS: PANTOPRAZOLE SODIUM 40 MG TABLET.DR PO SCH ×2 (05:50→17:01)
[2018-09-29] MEDS: HEPARIN SOD (PORCINE) 5,000 UNIT/ML 1 ML SYRINGE SUBCUT SCH ×3 (05:50→23:02)
[2018-09-29] MEDS: IPRATROPIUM/ALBUTEROL 0.5-2.5 MG/3 ML AMPUL NEB SCH ×4 (07:19→20:11)
[2018-09-29] MEDS: INSULIN LISPRO 100 UNIT/ML 3 ML VIAL SUBCUT SCH ×4 (08:49→23:04)
[2018-09-29] MEDS: ASPIRIN 81 MG TABLET, CHEWABLE PO SCH (09:42)
[2018-09-29] MEDS: POTASSIUM CHLORIDE 10 MEQ CAPSULE.ER PO SCH (09:42)
[2018-09-29] MEDS: FOLIC ACID/VITAMIN B COMP W-C CAPSULE PO SCH (09:43)
[2018-09-29] MEDS: FINASTERIDE 5 MG TABLET PO SCH (09:43)
[2018-09-29] MEDS: CARVEDILOL 12.5 MG TABLET PO SCH ×2 (09:43→23:01)
[2018-09-29] MEDS: ESCITALOPRAM OXALATE 10 MG TABLET PO SCH (09:43)
[2018-09-29] MEDS: ISOSORBIDE MONONITRATE 30 MG TAB.ER.24H PO SCH (09:43)
[2018-09-29] MEDS: CEFTRIAXONE SODIUM 1,000 MG in DEXTROSE 5%-WATER 50 ML IV SCH (09:44)
[2018-09-29] MEDS: GENTAMICIN SULFATE 0.1% CREAM 15 GM TP SCH (09:49)
[2018-09-29] MEDS ORDERED: MORPHINE SULFATE 10 MG/ML INJ IV ONE (10:00)
--- NOTE | 2018-09-29 14:43 | PDOC PROGRESS REPORT ---
Subjective Progress Note for:: 09/29/18 Subjective:: 09/24: Assumed care. Chart and course reviewed. This is a 67 yr old male with a PMH of ESRD on peritoneal dialysis, COPD, congestive heart failure, coronary artery disease, [place] with stent placement, hypertension, hyperlipidemia, COPD with history of respiratory failure, type 2 diabetes mellitus, BPH, diverticulitis, and depression who presented with acute urinary retention. Patient reportedly also was having hypotension with a blood pressure in the 70s systolic at home. He was found to have leukocytosis and UTI on admission. Patient had Moraes catheter placement yesterday and per RN, there was significant purulent drainage from the catheter which they described as "oatmeal-like" output. Last night, patient's blood pressure dropped to 80/40s and he was started on dopamine drip. This morning, he appears comfortable and he says that he feels better. Patient does state now that he had urinary retention but also was having dysuria at home which he described as a burning sensation when he was peeing. Note of few purulent material on the urine from the Moraes. Appears purulent discharge is starting to clear out. Will wean off dopamine today. 09/25: He was weaned off dopamine drip yesterday morning and blood pressures have remained stable. He continues to improve. Patient does have episodes of feeling flushed and feeling warm lasting for 2 to 3 minutes. He does develop significant diaphoresis during this event and occasionally associated bowel in continence. He says that this has happened more than a year ago but has been happening more frequently in the past few months. He denies any chest pain or shortness of breath during these episodes. He continues to have occasional purulent material on the urine from the Moraes. 09/26: He had some loose stools this morning. Denies chest pain, shortness of breath or abdominal pain. He did have 2 episodes of flushing and diaphoresis last night. These episodes raise concern for possible carcinoid syndrome. 09/27: He says that the flushing episodes have been less frequent and he only had one last night. His stools are also better formed today. Minimal purulent material on the Moraes. Plan to remove Moraes catheter tomorrow morning. 6: Urine on the Moraes is clearing up. Plan to remove Moraes catheter today and see if he is able to void on his own now. He had one episode of flushing last night. Denies any other acute complaints. He says he continues to feel better. 09/29: No acute event overnight. He was not able to void and developed significant urinary retention again after Moraes was removed. He complained of penile pain and dysuria. Discussed options risk and benefits of intermittent catheterization versus Moraes. Patient refused former and insisted on having the Moraes back. He will need close outpatient follow-up with urology later. Reason For Visit: SEPSIS Physical Exam Vital Signs: Temp Pulse Resp BP Pulse Ox 98.1 F 78 18 117/51 L 94 09/29/18 12:08 09/29/18 12:08 09/29/18 12:08 09/29/18 12:08 09/29/18 12:08 Intake & Output 09/28/18 09/29/18 09/30/18 06:59 06:59 06:59 Intake Total 89880 06750 2550 Output Total 04274 7310 2400 Balance 368 3400 150 Weight 216 lb 4.375 oz 216 lb 7.903 oz General appearance: PRESENT: no acute distress, well-developed, well-nourished Head exam: PRESENT: atraumatic, normocephalic Eye exam: PRESENT: conjunctiva pink, EOMI, PERRLA. ABSENT: scleral icterus Ear exam: PRESENT: normal external ear exam Mouth exam: PRESENT: moist, tongue midline Neck exam: ABSENT: carotid bruit, JVD, lymphadenopathy, thyromegaly Respiratory exam: PRESENT: clear to auscultation yair. ABSENT: rales, rhonchi, wheezes Cardiovascular exam: PRESENT: RRR. ABSENT: diastolic murmur, rubs, systolic murmur Pulses: PRESENT: normal dorsalis pedis pul GI/Abdominal exam: PRESENT: normal bowel sounds, soft. ABSENT: distended, guarding, mass, organolmegaly, rebound, tenderness Rectal exam: PRESENT: deferred Extremities exam: PRESENT: full ROM. ABSENT: calf tenderness, clubbing, pedal edema Neurological exam: PRESENT: alert, awake, oriented to person, oriented to place, oriented to time, oriented to situation, CN II-XII grossly intact. ABSENT: motor sensory deficit Results Laboratory Results: 09/27/18 06:00 09/28/18 09:32 09/28/18 23:50 Urine Color RANJITH Urine Appearance CLOUDY Urine pH 6.0 Ur Specific [place] 1.017 Urine Protein >=500 H Urine Glucose (UA) 500 H Urine Ketones NEGATIVE Urine Blood MODERATE H Urine Nitrite NEGATIVE Ur Leukocyte Esterase LARGE H Urine WBC (Auto) >182 Urine RBC (Auto) 105 09/23/18 14:08 Blood Blood Culture - Final NO GROWTH IN 5 DAYS 09/23/18 12:25 Blood Blood Culture - Final NO GROWTH IN 5 DAYS 09/23/18 09/23/18 09/23/18 10:00 10:00 21:10 Creatine Kinase 155 121 CK-MB (CK-2) 8.07 H Troponin I NT-Pro-B Natriuret Pep 09/23/18 09/23/18 09/24/18 21:10 21:10 03:15 Creatine Kinase 95 CK-MB (CK-2) 6.03 H Troponin I 0.079 NT-Pro-B Natriuret Pep 09/24/18 09/24/18 03:15 03:15 Creatine Kinase CK-MB (CK-2) 4.97 H Troponin I 0.083 NT-Pro-B Natriuret Pep 65780 H Impressions: Abdomen/Pelvis CT 09/25/18 14:20 IMPRESSION: Small right pleural effusion. Mild peripelvic stranding in the right kidney. No significant perinephric stranding. No significant evidence of pyelonephritis. There is free fluid in the abdomen and pelvis with what appears to represent a peritoneal dialysis catheter. Assessment and Plan - Diagnosis (1) Severe sepsis Is this a current diagnosis for this admission?: Yes Plan: Secondary to acute pyelonephritis. 09/24: Wean off dopamine drip today. Continue IV antibiotics pending final culture results. 09/25: Improving. Blood pressures stable off dopamine. Urine culture grew Yady. Diflucan added. 09/26: Discontinued vancomycin and Zosyn, switched to Rocephin. Continue Diflucan. 09/28: Continue Diflucan and Rocephin. 09/29: Plan to discontinue Rocephin soon and continue Diflucan pending recommendations from ID. (2) Acute pyelonephritis Is this a current diagnosis for this admission?: Yes Plan: As per number 1. (3) Acute urinary retention Is this a current diagnosis for this admission?: Yes Plan: Likely related to patient's urinary tract infection. Note occasional purulent material from the urine on the Moraes. 09/27: Plan to remove Moraes tomorrow morning. 09/28: Remove Moraes cath today. 09/29: He developed significant urinary retention again. Will reinsert Moraes cath. (4) Chronic renal failure, stage 5 Is this a current diagnosis for this admission?: Yes Plan: On peritoneal dialysis. Nephrology following. (5) HTN (hypertension) Is this a current diagnosis for this admission?: Yes Plan: 09/24: Hold home medications for now due to low normal blood pressures. 09/25: Blood pressures in the 120/60s. 09/26: Blood pressures start to run high now. Resume Coreg and Imdur. 09/27: BP in the 140/50s. Continue Coreg and Imdur. 09/29: Controlled. (6) Carcinoid syndrome Is this a current diagnosis for this admission?: Yes Plan: Patient has had episodes of flushing, diaphoresis and occasionally associated with diarrhea. He says this is been going on for more than a year but has been more frequent in the past few months. This raises the possibility of a carcinoid syndrome. 5-HIAA testing ordered. 09/27: 5-HIAA sent and pending. (7) Hypokalemia Is this a current diagnosis for this admission?: Yes Plan: Resolved.
--- NOTE | 2018-09-29 16:53 | PSYCHOLOGICAL NOTE ---
Psych Note - Psych Note Date seen by psych provider: 09/29/18 Time seen by psych provider: 14:04 - Chart review at [id number]. [id number] visitors/got nurse collateral. Psych Note: Presenting Problem: Depression, patient requested to talk with someone. This clinician went to evaluate patient and he had a room full of visitors. When asked if he would like behavioral health to come back he said "yes please." Observed patient sitting upright in bed with legs over the side. His affect appeared bright. Attending nurse noted this is the first time he has had visitors. She noted he has had recurrent UTI's which has kept him hospital bound or constantly in to seeing doctors. She stated he talked with her during dialysis today. Home medication and current administration of Lexapro 10MG QD. Will try to do evaluation tomorrow (09/30/18). Diagnosis: Multiple Chronic Medical Issues 311 (F32.9) Unspecified Depressive Disorder Medication recommendations made by the psychiatric medical provider, Dr. Julieta MD., includes: Continue Lexapro 10MG daily for depression/anxiety Impression/Plan: Patient had lots of visitors when this clinician went to evaluate/talk with patient. He wanted to visit. Will try again tomorrow. Co nsulted with Dr. Isaacs regarding the management and care of patient.
[2018-09-29] MEDS: FLUCONAZOLE 100 MG TABLET PO SCH (17:00)
[2018-09-29] MEDS: ATORVASTATIN CALCIUM 80 MG TABLET PO SCH (23:01)
[2018-09-29] MEDS: INSULIN GLARGINE,HUM.REC.ANLOG 1,000 UNIT/10 ML VIAL SUBCUT SCH (23:02)
[2018-09-30] MEDS: GUAIFENESIN/D-METHORPHAN (200-20 MG) SYRUP 10 ML PO PRN (02:45)
[2018-09-30 04:31] LABS: ABSOLUTE EOSINOPHILS # (AUTO) 0.4 10^3/uL (0.0-0.6); ABSOLUTE LYMPHOCYTES (AUTO) 1.4 10^3/uL (0.5-4.7); ABSOLUTE MONOCYTES (AUTO) 1.1 10^3/uL (0.1-1.4); ABSOLUTE NEUT (AUTO) 6.7 10^3/uL (1.7-8.2); BASOPHILS % (AUTO) 0.5 % (0-2); EOSINOPHILS % (AUTO) 3.7 % (0-6); HEMATOCRIT 26.5 % (37.9-51.0); HEMOGLOBIN 8.5 g/dL (13.5-17.0); LYMPHOCYTES % (AUTO) 14.7 % (13-45); MEAN CORPUSCULAR HEMOGLOBIN 30.6 pg (27.0-33.4); MEAN CORPUSCULAR HGB CONC 32.3 g/dL (32.0-36.0); MEAN CORPUSCULAR VOLUME 95 fl (80-97); MONOCYTES % (AUTO) 11.4 % (3-13); PLATELET COUNT 273 10^3/uL (150-450); RED BLOOD COUNT 2.79 10^6/uL (4.35-5.55); RED CELL DISTRIBUTION WIDTH 17.6 % (11.5-14.0); SEGMENTED NEUTROPHILS % (AUTO) 69.7 % (42-78); TOTAL CELLS COUNTED % (AUTO) 100 %; WHITE BLOOD COUNT 9.6 10^3/uL (4.0-10.5)
[2018-09-30 04:50] LABS: ANION GAP 11 (5-19); BLOOD UREA NITROGEN 38 mg/dL (7-20); CALCIUM 7.6 mg/dL (8.4-10.2); CARBON DIOXIDE 27 mmol/L (22-30); CHLORIDE 100 mmol/L (98-107); GLUCOSE 305 mg/dL (75-110); POTASSIUM 3.5 mmol/L (3.6-5.0); SODIUM 137.6 mmol/L (137-145)
[2018-09-30] MEDS: HEPARIN SOD (PORCINE) 5,000 UNIT/ML 1 ML SYRINGE SUBCUT SCH ×3 (06:26→21:23)
[2018-09-30] MEDS: PANTOPRAZOLE SODIUM 40 MG TABLET.DR PO SCH ×2 (06:26→17:13)
[2018-09-30] MEDS: IPRATROPIUM/ALBUTEROL 0.5-2.5 MG/3 ML AMPUL NEB SCH ×4 (08:04→20:32)
[2018-09-30] MEDS: INSULIN LISPRO 100 UNIT/ML 3 ML VIAL SUBCUT SCH ×4 (08:39→21:23)
[2018-09-30] MEDS: ASPIRIN 81 MG TABLET, CHEWABLE PO SCH (10:05)
[2018-09-30] MEDS: POTASSIUM CHLORIDE 10 MEQ CAPSULE.ER PO SCH (10:05)
[2018-09-30] MEDS: CARVEDILOL 12.5 MG TABLET PO SCH ×2 (10:05→21:24)
[2018-09-30] MEDS: ESCITALOPRAM OXALATE 10 MG TABLET PO SCH (10:06)
[2018-09-30] MEDS: CEFTRIAXONE SODIUM 1,000 MG in DEXTROSE 5%-WATER 50 ML IV SCH (10:06)
[2018-09-30] MEDS: FOLIC ACID/VITAMIN B COMP W-C CAPSULE PO SCH (10:06)
[2018-09-30] MEDS: ISOSORBIDE MONONITRATE 30 MG TAB.ER.24H PO SCH (10:06)
[2018-09-30] MEDS: FINASTERIDE 5 MG TABLET PO SCH (10:06)
--- NOTE | 2018-09-30 11:25 | PDOC PROGRESS REPORT ---
Subjective Progress Note for:: 09/30/18 Subjective:: Patient tells me that he is doing fine. Over the weekend his Moraes catheter was removed but needed to be inserted back yesterday because the patient is significantly retaining urine. Patient is aware of enlarged prostate. He chose to go home possibly with a Moraes catheter rather than doing intermittent catheterization at home. In terms of peritoneal dialysis, he has some ultrafiltration using 4.25% solution. He seems to be euvolemic without any complaints of any shortness of breath nor obvious edema. His blood pressure is a little bit low this morning but that was after the 4.25% drain. Reason For Visit: SEPSIS Physical Exam Vital Signs: Temp Pulse Resp BP Pulse Ox 98.2 F 75 20 108/35 L 95 09/30/18 07:45 09/30/18 08:09 09/30/18 08:09 09/30/18 07:45 09/30/18 08:09 Intake & Output 09/29/18 09/30/18 10/01/18 06:59 06:59 06:59 Intake Total 26617 92213 50 Output Total 7310 12619 Balance 3400 260 50 Weight 98.2 kg 97 kg Exam: General appearance: PRESENT: no acute distress, cooperative, well-developed, well-nourished Head exam: PRESENT: atraumatic, normocephalic Eye exam: PRESENT: conjunctiva slightly pale, PERRLA. ABSENT: scleral icterus Neck exam: ABSENT: JVD Respiratory exam: PRESENT: Normal breath sounds. ABSENT: crackles, rales, rhonchi, unlabored, wheezes Cardiovascular exam: PRESENT: Regular rate rhythm -+S1, +S2. ABSENT: diastolic murmur, systolic murmur GI/Abdominal exam: PRESENT: normal bowel sounds, soft. PD catheter in place. ABSENT: guarding, mass, tenderness Extremities exam: ABSENT: No edema Neurological exam: PRESENT: alert, awake, oriented to person, place and time. Skin exam: PRESENT: dry, warm, Cardiovascular exam: PRESENT: RRR, +S1, +S2. ABSENT: rubs GI/Abdominal exam: PRESENT: soft. ABSENT: tenderness Results Laboratory Results: 09/30/18 04:13 09/30/18 04:13 09/30/18 09/30/18 04:13 04:13 WBC 9.6 RBC 2.79 L Hgb 8.5 L Hct 26.5 L MCV 95 MCH 30.6 MCHC 32.3 RDW 17.6 H Plt Count 273 Seg Neutrophils % 69.7 Lymphocytes % 14.7 Monocytes % 11.4 Eosinophils % 3.7 Basophils % 0.5 Absolute Neutrophils 6.7 Absolute Lymphocytes 1.4 Absolute Monocytes 1.1 Absolute Eosinophils 0.4 Absolute Basophils 0.0 Sodium 137.6 Potassium 3.5 L Chloride 100 Carbon Dioxide 27 Anion Gap 11 BUN 38 H Creatinine 6.50 H Est GFR ( Amer) 10 L Est GFR (Non-Af Amer) 9 L Glucose 305 H Calcium 7.6 L 09/23/18 09/23/18 09/23/18 10:00 10:00 21:10 Creatine Kinase 155 121 CK-MB (CK-2) 8.07 H Troponin I NT-Pro-B Natriuret Pep 09/23/18 09/23/18 09/24/18 21:10 21:10 03:15 Creatine Kinase 95 CK-MB (CK-2) 6.03 H Troponin I 0.079 NT-Pro-B Natriuret Pep 09/24/18 09/24/18 03:15 03:15 Creatine Kinase CK-MB (CK-2) 4.97 H Troponin I 0.083 NT-Pro-B Natriuret Pep 92427 H Impressions: Abdomen/Pelvis CT 09/25/18 14:20 IMPRESSION: Small right pleural effusion. Mild peripelvic stranding in the right kidney. No significant perinephric stranding. No significant evidence of pyelonephritis. There is free fluid in the abdomen and pelvis with what appears to represent a peritoneal dialysis catheter. Assessment & Plan - Diagnosis (1) End-stage renal disease on peritoneal dialysis Is this a current diagnosis for this admission?: Yes Plan: I changed his PD solution to alternating 4.25 and 2.5% for as long as systolic blood pressures greater than 110. If systolic blood pressures less than 110 will use the 1.5% solution. Currently has more ultrafiltration using 4.25%. He is doing fine with this regimen. Patient has some ultrafiltration issue so he has been using Extraneal solution as an outpatient but it is not available here in the hospital. Continue all other orders per CAPD otherwise. We will co ntinue to monitor. (2) UTI (urinary tract infection) Qualifiers: Urinary tract infection type: site unspecified Hematuria presence: without hematuria Qualified Code(s): N39.0 - Urinary tract infection, site not specified Is this a current diagnosis for this admission?: Yes Plan: On IV ceftriaxone. (3) Hypotension Is this a current diagnosis for this admission?: Yes Plan: Has occasional low blood pressure readings but overall has been improved and acceptable. (4) Anemia in chronic kidney disease Is this a current diagnosis for this admission?: Yes Plan: Patient received Procrit of 20,000 units subcutaneously on September 26 and a dose of IV Injectafer on September 27. (5) Hypokalemia Is this a current diagnosis for this admission?: Yes Plan: Continue potassium chloride to 40 mEq p.o. daily. (6) Acute urinary retention Is this a current diagnosis for this admission?: Yes Plan: Agree with indwelling Moraes catheter as the patient does not want to do intermittent catheterization at home. Advised patient that he would need to see a urologist after discharge. (7) Diabetes mellitus type 2 in obese Is this a current diagnosis for this admission?: Yes - Time Time with patient: 15-25 minutes
[2018-09-30] MEDS: GENTAMICIN SULFATE 0.1% CREAM 15 GM TP SCH (13:54)
--- NOTE | 2018-09-30 14:01 | PDOC PROGRESS REPORT ---
Subjective Progress Note for:: 09/30/18 Subjective:: 09/24: Assumed care. Chart and course reviewed. This is a 67 yr old male with a PMH of ESRD on peritoneal dialysis, COPD, congestive heart failure, coronary artery disease, [place] with stent placement, hypertension, hyperlipidemia, COPD with history of respiratory failure, type 2 diabetes mellitus, BPH, diverticulitis, and depression who presented with acute urinary retention. Patient reportedly also was having hypotension with a blood pressure in the 70s systolic at home. He was found to have leukocytosis and UTI on admission. Patient had Moraes catheter placement yesterday and per RN, there was significant purulent drainage from the catheter which they described as "oatmeal-like" output. Last night, patient's blood pressure dropped to 80/40s and he was started on dopamine drip. This morning, he appears comfortable and he says that he feels better. Patient does state now that he had urinary retention but also was having dysuria at home which he described as a burning sensation when he was peeing. Note of few purulent material on the urine from the Moraes. Appears purulent discharge is starting to clear out. Will wean off dopamine today. 09/25: He was weaned off dopamine drip yesterday morning and blood pressures have remained stable. He continues to improve. Patient does have episodes of feeling flushed and feeling warm lasting for 2 to 3 minutes. He does develop significant diaphoresis during this event and occasionally associated bowel in continence. He says that this has happened more than a year ago but has been happening more frequently in the past few months. He denies any chest pain or shortness of breath during these episodes. He continues to have occasional purulent material on the urine from the Moraes. 09/26: He had some loose stools this morning. Denies chest pain, shortness of breath or abdominal pain. He did have 2 episodes of flushing and diaphoresis last night. These episodes raise concern for possible carcinoid syndrome. 09/27: He says that the flushing episodes have been less frequent and he only had one last night. His stools are also better formed today. Minimal purulent material on the Moraes. Plan to remove Moraes catheter tomorrow morning. 6: Urine on the Moraes is clearing up. Plan to remove Moraes catheter today and see if he is able to void on his own now. He had one episode of flushing last night. Denies any other acute complaints. He says he continues to feel better. 09/29: He was not able to void and developed significant urinary retention again after Moraes was removed. He complained of penile pain and dysuria. Discussed options risk and benefits of intermittent catheterization versus Moraes. Patient refused former and insisted on having the Moraes back. He will need close outpa tient follow-up with urology later. 09/30: No acute event overnight. Patient continues to do well. Urine on Moraes today still has purulent material coming out. Awaiting further ID recommendations. 5-HIAA testing pending possible carcinoid syndrome. Consulted oncology. Reason For Visit: SEPSIS Physical Exam Vital Signs: Temp Pulse Resp BP Pulse Ox 98.6 F 65 16 97/34 L 96 09/30/18 11:58 09/30/18 11:58 09/30/18 11:58 09/30/18 11:58 09/30/18 11:58 Intake & Output 09/29/18 09/30/18 10/01/18 06:59 06:59 06:59 Intake Total 99866 47703 50 Output Total 7310 38957 Balance 3400 260 50 Weight 216 lb 7.903 oz 213 lb 13.574 oz General appearance: PRESENT: no acute distress, well-developed, well-nourished Head exam: PRESENT: atraumatic, normocephalic Eye exam: PRESENT: conjunctiva pink, EOMI, PERRLA. ABSENT: scleral icterus Ear exam: PRESENT: normal external ear exam Mouth exam: PRESENT: moist, tongue midline Neck exam: ABSENT: carotid bruit, JVD, lymphadenopathy, thyromegaly Respiratory exam: PRESENT: clear to auscultation yair. ABSENT: rales, rhonchi, wheezes Cardiovascular exam: PRESENT: RRR. ABSENT: diastolic murmur, rubs, systolic murmur Pulses: PRESENT: normal dorsalis pedis pul GI/Abdominal exam: PRESENT: normal bowel sounds, soft. ABSENT: distended, guarding, mass, organolmegaly, rebound, tenderness Rectal exam: PRESENT: deferred Extremities exam: PRESENT: full ROM. ABSENT: calf tenderness, clubbing, pedal edema Neurological exam: PRESENT: alert, awake, oriented to person, oriented to place, oriented to time, oriented to situation, CN II-XII grossly intact. ABSENT: motor sensory deficit Results Laboratory Results: 09/30/18 04:13 09/30/18 04:13 09/30/18 09/30/18 04:13 04:13 WBC 9.6 RBC 2.79 L Hgb 8.5 L Hct 26.5 L MCV 95 MCH 30.6 MCHC 32.3 RDW 17.6 H Plt Count 273 Seg Neutrophils % 69.7 Lymphocytes % 14.7 Monocytes % 11.4 Eosinophils % 3.7 Basophils % 0.5 Absolute Neutrophils 6.7 Absolute Lymphocytes 1.4 Absolute Monocytes 1.1 Absolute Eosinophils 0.4 Absolute Basophils 0.0 Sodium 137.6 Potassium 3.5 L Chloride 100 Carbon Dioxide 27 Anion Gap 11 BUN 38 H Creatinine 6.50 H Est GFR ( Amer) 10 L Est GFR (Non-Af Amer) 9 L Glucose 305 H Calcium 7.6 L 09/23/18 09/23/18 09/23/18 10:00 10:00 21:10 Creatine Kinase 155 121 CK-MB (CK-2) 8.07 H Troponin I NT-Pro-B Natriuret Pep 09/23/18 09/23/18 09/24/18 21:10 21:10 03:15 Creatine Kinase 95 CK-MB (CK-2) 6.03 H Troponin I 0.079 NT-Pro-B Natriuret Pep 09/24/18 09/24/18 03:15 03:15 Creatine Kinase CK-MB (CK-2) 4.97 H Troponin I 0.083 NT-Pro-B Natriuret Pep 97450 H Impressions: Abdomen/Pelvis CT 09/25/18 14:20 IMPRESSION: Small right pleural effusion. Mild peripelvic stranding in the right kidney. No significant perinephric stranding. No significant evidence of pyelonephritis. There is free fluid in the abdomen and pelvis with what appears to represent a peritoneal dialysis catheter. Assessment and Plan - Diagnosis (1) Severe sepsis Is this a current diagnosis for this admission?: Yes Plan: Secondary to acute pyelonephritis. 09/24: Wean off dopamine drip today. Continue IV antibiotics pending final culture results. 09/25: Improving. Blood pressures stable off dopamine. Urine culture grew Yady. Diflucan added. 09/26: Discontinued vancomycin and Zosyn, switched to Rocephin. Continue Diflucan. 09/28: Continue Diflucan and Rocephin. 09/29: Plan to discontinue Rocephin soon and continue Diflucan pending recommenda tions from ID. 09/30: Urine on Moraes today still has purulent material coming out. Awaiting further ID recommendations. (2) Acute pyelonephritis Is this a current diagnosis for this admission?: Yes Plan: As per number 1. (3) Carcinoid syndrome Is this a current diagnosis for this admission?: Yes Plan: Patient has had episodes of flushing, diaphoresis and occasionally associated with diarrhea. He says this is been going on for more than a year but has been more frequent in the past few months. This raises the possibility of a carcinoid syndrome. 5-HIAA testing ordered. 09/30: 5-HIAA testing for possible carcinoid syndrome pending. Consulted oncology. (4) Acute urinary retention Is this a current diagnosis for this admission?: Yes Plan: Likely related to patient's urinary tract infection. Note occasional purulent material from the urine on the Moraes. 09/27: Plan to remove Moraes tomorrow morning. 09/28: Remove Moraes cath today. 09/29: He developed significant urinary retention again. Will reinsert Moraes cath. He will need close outpatient urology follow-up for his retention. (5) Chronic renal failure, stage 5 Is this a current diagnosis for this admission?: Yes Plan: On peritoneal dialysis. Nephrology following. (6) HTN (hypertension) Is this a current diagnosis for this admission?: Yes Plan: 09/24: Hold home medications for now due to low normal blood pressures. 09/25: Blood pressures in the 120/60s. 09/26: Blood pressures start to run high now. Resume Coreg and Imdur. 09/27: BP in the 140/50s. Continue Coreg and Imdur. 09/29: Controlled. (7) Hypokalemia Is this a current diagnosis for this admission?: Yes Plan: Resolved. - Time Time Spent with patient: 25-34 minutes
[2018-09-30] MEDS: FLUCONAZOLE 100 MG TABLET PO SCH (17:13)
--- NOTE | 2018-09-30 17:56 | Progress Note ---
Provider Note Provider Note: ID Consult Note Asked to review patient's chart. Pt not seen or examined. Pt is a 67 year old man with PMH including CAD, CHF, ESRD on PD, DM, BPH, and COPD who admitted on 09/23 with acute onset of lower abdominal pain and inability to urinate for 2 days. He was found to have urinary retention. The pain was alleviated upon placement of a Moraes in the ED with return of urine described as "oatmeal-like", thick and [place] or milky and cloudy in various notes. He admitted to having some burning sensation with urination prior to admission. He was noted to have a low systolic blood pressure initially. Blood and urine cultures were obtained. The latter was negative. Urine culture grew C albicans. CT abdomen/pelvis without contrast showed no significant evidence of pyelonephritis. He has been receiving IV Rocephin and also fluconazole since 09/24/18. Over the course of his hospitalization, the patient reported feeling better. His hypotension improved, and leukocytosis normalized. Unfortunately, he was not able to void with trial of Moraes removal, and it has been re-inserted. Output from the Moraes has been noted to continue to be purulent in appearance, albeit perhaps improved since presentation. Impression/Recommendations The patient may have pyocystis - The inability to flush the bladder of stagnant exfolated epithelial cells and accumulated microorganisms due lack of urine output with ESRD and inability to empty the bladder has been described, along with output of thick purulent discharge upon catheter drainage. - The mainstay of treatment is typically bladder irrigation with saline or intravesical antibiotics or antimicrobial agents (e.g. amphotericin B containing solution for Yady). - Bladder washings can be combined with systemic antimicrobial therapy, which he has been receiving since 09/24 but is still noted as having purulent appearing urine. - Suggest increasing fluconazole dose to 200 mg daily - The patient has been on Rocephin, but no bacteria grew from the urine culture or blood cultures, and antibiotic administration can be a risk factor for growth of Yady. Suggest discontinuing Rocephin. - Consider consultation with Urology Nakul Saha MD [facility] Infectious Diseases pager [phone]
[2018-09-30] MEDS: INSULIN GLARGINE,HUM.REC.ANLOG 1,000 UNIT/10 ML VIAL SUBCUT SCH (21:23)
[2018-09-30] MEDS: ATORVASTATIN CALCIUM 80 MG TABLET PO SCH (21:24)
[2018-10-01] MEDS ORDERED: CALCIUM GLUCONATE 1000 MG/10 ML INJ IV ONE (06:00)
[2018-10-01] MEDS ORDERED: OXYCODONE-ACETAMINOPHEN 5-325 MG TABLET PO ONE (06:00)
[2018-10-01] MEDS: PANTOPRAZOLE SODIUM 40 MG TABLET.DR PO SCH ×2 (06:11→17:39)
[2018-10-01] MEDS: HEPARIN SOD (PORCINE) 5,000 UNIT/ML 1 ML SYRINGE SUBCUT SCH ×3 (06:11→21:35)
--- NOTE | 2018-10-01 06:54 | PSYCHOLOGICAL NOTE ---
Psych Note - Psych Note Date seen by psych provider: 09/30/18 Time seen by psych provider: 15:43 - Evaluation from [id number]. Psych Note: Presenting Problem: Depression, patient requested to talk with someone. Today he stated he needed to do something about "my depression and anxiety." He reported poor sleep and unchanged appetite. He denied current SI, admitted to having passive thoughts a couple months ago and denied anything other than thoughts. He stated he has been on Lexapro for a couple years, prescribed by PCM and never anything else for MH. He denied previous MH hospitalizations. He acknowledged while living in [place] he had therapy, but since moving to [place] in February 2018 he has not been linked to anyone in this area. He expressed interest in therapy linkage. He was oriented x5, had linear thinking, was able to carry on dialogue conversation, and had depressed mood with congruent affect. Attending nurse noted waiting on multiple test results one of which is cancer. Diagnosis: Multiple Chronic Medical Issues 311 (F32.9) Unspecified Depressive Disorder Medication recommendations made by the psychiatric medical provider, Dr. Julieta MD., includes: Continue Lexapro 10MG daily for depression/anxiety Impression/Plan: Patient is cleared from acute psychiatric services. No current SI/HI or observed psychosis. No medication changes due to CKD and peritoneal dialysis. Patient agreed to wanting therapy linkage. [facility] can schedule outpatient therapy when patient is ready for discharge. Consulted with Dr. Isaacs regarding the management and care of patient. Attending Hospitalist made aware of recommendations. Please re consult [facility] if needed for providing testing results and for linkage to therapy once ready for discharge.
[2018-10-01] MEDS: IPRATROPIUM/ALBUTEROL 0.5-2.5 MG/3 ML AMPUL NEB SCH ×4 (08:24→20:15)
[2018-10-01] MEDS: INSULIN LISPRO 100 UNIT/ML 3 ML VIAL SUBCUT SCH ×4 (08:38→21:35)
--- NOTE | 2018-10-01 08:48 | PDOC CONSULTATION ---
Consultation Consult Date: 10/01/18 Provider Consulted: JASMIN SCHREIBER Consult reason:: Flushing and diarrhea concerning for carcinoid syndrome. History of Present Illness Admission Date/PCP: 09/23/18 17:28 [facility] History of Present Illness: CELIO WAGNER is a 67 year old male on peritoneal dialysis who states that he has had recurrent UTIs since March. He has been treated with multiple ant ibiotics, but the infections never seem to go away. Currently, he is on ceftriaxone, gentamycin, and diflucan. ID has been consulted. Over the past few weeks, he has also been having episodes of Hot flashes, diaphoresis, diarrhea. These episodes are becoming more frequent since he was admitted. He has not had any fevers and denies any chills prior to these events. Currently, he reports that he feels "overstuffed" with his dialysis fluid. HE has no other complaints. Nurses report that these episode are significant and he is very sleepy for a few hours afterward. Past Medical History Cardiac Medical History: Reports: Congestive Heart Failure, Coronary Artery Disease, Myocardial Infarction - Twice with stents placed, Hyperlipidema, Hypertension Denies: Atrial Fibrillation, DVT, Pulmonary Embolism Pulmonary Medical History: Reports: Chronic Obstructive Pulmonary Disease (COPD), Respiratory Failure Denies: Asthma Neurological Medical History: Denies: Seizures Endocrine Medical History: Reports: Diabetes Mellitus Type 2, Obesity Denies: Diabetes Mellitus Type 1, Hyperthyroidism, Hypothyroidism Renal/ Medical History: Reports: End Stage Renal Disease GI Medical History: Reports: Diverticulitis Denies: Cirrhosis, Hepatitis Musculoskeltal Medical History: Denies: Arthritis, Gout Skin Medical History: Denies: Eczema, Psoriasis Psychiatric Medical History: Reports: Depression, Tobacco Dependency Hematology: Reports: Anemia Denies: Bleeding Tendencies Infectious Medical History: Reports: Clostridium Difficile Past Surgical History Past Surgical History: Reports: Cardiac Catheterization, Coronary Stent - X2, Other - Small bowel resection; adhesion lysis; peritoneal dialysis access Social History Smoking Status: Former Smoker Frequency of Alcohol Use: None Hx Recreational Drug Use: No Drugs: None Hx Prescription Drug Abuse: No - Advance Directive Resuscitation Status: Full Code Family History Family History: CAD, DM, Hypertension Parental Family History Reviewed: Yes Children Family History Reviewed: No Sibling(s) Family History Reviewed.: No Medication/Allergy Home Medications: Atorvastatin Calcium [Lipitor 80 mg Tablet] 80 mg PO QHS 04/23/18 Carvedilol [Coreg 12.5 mg Tablet] 12.5 mg PO Q12 04/23/18 Escitalopram Oxalate [Lexapro 10 mg Tablet] 10 mg PO DAILY 04/23/18 Finasteride [Proscar 5 mg Tablet] 5 mg PO DAILY 04/23/18 Folic Acid/Vitamin B Comp W-C [Renal Multivitamin Tablet] 1 tab PO DAILY 04/23/18 Insulin Glargine,Hum.rec.anlog [Lantus (Pyxis) Insulin 100 Unit/1 ml 10 ml] 80 unit SUBCUT QHS 04/23/18 Isosorbide Mononitrate [Imdur 30 mg Tablet.er] 30 mg PO DAILY 04/23/18 Terazosin HCl [Hytrin] 2 mg PO QHS 04/23/18 Famotidine [Pepcid 20 mg Tablet] 20 mg PO QHS 08/08/18 Ipratropium/Albuterol Sulfate [Duoneb 3 ml Ampul] 1 vial NEB QID 08/08/18 Aspirin [Aspirin 81 mg Chewable Tablet] 81 mg PO DAILY 09/23/18 Bisacodyl [Dulcolax 5 Mg Tablet] 5 mg PO ASDIR PRN 09/23/18 Omeprazole 20 mg PO DAILY 09/23/18 Allergies/Adverse Reactions: No Known Allergies Allergy (Verified 09/23/18 09:48) Review of Systems Constitutional: ABSENT: chills, fever(s), headache(s) Nose, Mouth, and Throat: ABSENT: sore throat Cardiovascular: ABSENT: chest pain Respiratory: ABSENT: dyspnea Gastrointestinal: PRESENT: diarrhea. ABSENT: nausea Genitourinary: PRESENT: as per HPI Integumentary: ABSENT: rash Neurological: ABSENT: confusion, weakness Psychiatric: PRESENT: anxiety, other - Patient denies any recent panic attacks. Hematologic/Lymphatic: ABSENT: lymphadenopathy Physical Exam Vital Signs: Temp Pulse Resp BP Pulse Ox 98.3 F 63 22 H 134/47 H 99 10/01/18 05:37 10/01/18 07:00 10/01/18 05:37 10/01/18 05:37 10/01/18 05:37 Intake & Output 09/30/18 10/01/18 10/02/18 06:59 06:59 06:59 Intake Total 12254 8750 Output Total 20520 8400 Balance 260 350 Weight 97 kg 97.7 kg General appearance: PRESENT: no acute distress, well-developed, well-nourished Exam: 67 year old male. Head exam: PRESENT: normocephalic Eye exam: PRESENT: EOMI, PERRLA Mouth exam: PRESENT: tongue midline Neck exam: ABSENT: lymphadenopathy, tenderness Respiratory exam: PRESENT: clear to auscultation yair, unlabored Cardiovascular exam: PRESENT: RRR GI/Abdominal exam: PRESENT: firm, other - Filled with peritoneal dialysis fluid. Extremities exam: ABSENT: pedal edema Musculoskeletal exam: PRESENT: normal inspection Neurological exam: PRESENT: alert, awake Psychiatric exam: PRESENT: appropriate affect Skin exam: PRESENT: normal color Results Laboratory Results: 09/30/18 04:13 09/30/18 04:13 09/23/18 09/23/18 09/23/18 10:00 10:00 21:10 Creatine Kinase 155 121 CK-MB (CK-2) 8.07 H Troponin I NT-Pro-B Natriuret Pep 09/23/18 09/23/18 09/24/18 21:10 21:10 03:15 Creatine Kinase 95 CK-MB (CK-2) 6.03 H Troponin I 0.079 NT-Pro-B Natriuret Pep 09/24/18 09/24/18 03:15 03:15 Creatine Kinase CK-MB (CK-2) 4.97 H Troponin I 0.083 NT-Pro-B Natriuret Pep 26483 H Impressions: Abdomen/Pelvis CT 09/25/18 14:20 IMPRESSION: Small right pleural effusion. Mild peripelvic stranding in the r ight kidney. No significant perinephric stranding. No significant evidence of pyelonephritis. There is free fluid in the abdomen and pelvis with what appears to represent a peritoneal dialysis catheter. Status: Image reviewed by me Assessment & Plan - Diagnosis (1) Acute pyelonephritis Is this a current diagnosis for this admission?: Yes (2) Acute urinary retention Is this a current diagnosis for this admission?: Yes - Plan Summary Plan Summary: His symptoms are curious. Although they may be due to current infection, carcinoid syndrome is also a consideration. The most sensative test for thie is CT C/A/P with contrast to find the carcinoid tumor. I did review the CT A/P without contrast during this admission, but full scan with contrast would be better. Unsure if this will be possible with his current renal function. I will defer to primary team. I will check serum 5-HIAA and Chromogranin, but these are not sensitive tests. Search for other causes of the hot flushings should be considered as well. I will be happy to follow with you. Patient was discussed with Dr. Cade
--- NOTE | 2018-10-01 10:17 | RADIOLOGY REPORT (SQ) ---
EXAM DESCRIPTION: KUB/ABDOMEN (SINGLE VIEW) COMPLETED DATE/TIME: 10/01/2018 10:03 am REASON FOR STUDY: abdominal pain and firmness COMPARISON: CT abdomen pelvis 09/25/2018 KUB 04/22/2018 NUMBER OF VIEWS: One view. TECHNIQUE: Supine radiographic image of the abdomen acquired. LIMITATIONS: None. FINDINGS: BOWEL GAS PATTERN: Stool in the colon. Air in few nondistended small bowel loops, nonspec ific. CALCIFICATIONS: No suspicious calcifications. SOFT TISSUES: No gross mass or suggestion of organomegaly. HARDWARE: Peritoneal dialysis catheter loop is over the right lower quadrant. BONES: Osteoporotic OTHER: No other significant finding. IMPRESSION: Grossly nonobstructive bowel gas pattern. Peritoneal dialysis catheter over the right lower quadrant TECHNICAL DOCUMENTATION: JOB ID: [id number] [employer]- All Rights Reserved Reading location - IP/workstation name: [email or web address]
[2018-10-01] MEDS: CEFTRIAXONE SODIUM 1,000 MG in DEXTROSE 5%-WATER 50 ML IV SCH (10:27)
[2018-10-01] MEDS: FOLIC ACID/VITAMIN B COMP W-C CAPSULE PO SCH (10:27)
[2018-10-01] MEDS: ISOSORBIDE MONONITRATE 30 MG TAB.ER.24H PO SCH (10:27)
[2018-10-01] MEDS: ESCITALOPRAM OXALATE 10 MG TABLET PO SCH (10:27)
[2018-10-01] MEDS: ASPIRIN 81 MG TABLET, CHEWABLE PO SCH (10:27)
[2018-10-01] MEDS: POTASSIUM CHLORIDE 10 MEQ CAPSULE.ER PO SCH (10:27)
[2018-10-01] MEDS: CARVEDILOL 12.5 MG TABLET PO SCH ×2 (10:27→21:35)
[2018-10-01] MEDS: FINASTERIDE 5 MG TABLET PO SCH (10:27)
[2018-10-01] MEDS: GENTAMICIN SULFATE 0.1% CREAM 15 GM TP SCH (10:28)
[2018-10-01 12:09] LABS: FLUID APPEARANCE CLEAR; FLUID COLOR COLORLESS; FLUID SOURCE ABDOMEN; FLUID TYPE PERITONEAL; FLUID VISCOSITY LIQUID
--- NOTE | 2018-10-01 15:34 | PDOC PROGRESS REPORT ---
Subjective Progress Note for:: 10/01/18 Subjective:: Patient seen by oncology today. Recommends CT abdomen pelvis with IV contrast to rule out carcinoid syndrome. I have just discussed this with nephrology and they state appropriate to obtain this test at this time. Patient is complaining no pain or discomfort at this time we are awaiting a 5 H1 AA 24-hour urine and rapid test. Also awaiting further recommendations from ID. Reason For Visit: SEPSIS Physical Exam Vital Signs: Temp Pulse Resp BP Pulse Ox 98.5 F 72 18 122/43 L 93 10/01/18 11:17 10/01/18 12:42 10/01/18 12:42 10/01/18 11:17 10/01/18 12:42 Intake & Output 09/30/18 10/01/18 10/02/18 06:59 06:59 06:59 Intake Total 73525 8750 2910 Output Total 65906 8400 3200 Balance 260 350 -290 Weight 97 kg 97.7 kg General appearance: PRESENT: no acute distress, well-developed, well-nourished Head exam: PRESENT: atraumatic, normocephalic Eye exam: PRESENT: other - Blind Respiratory exam: PRESENT: clear to auscultation yair. ABSENT: rales, rhonchi, wheezes Cardiovascular exam: PRESENT: RRR. ABSENT: diastolic murmur, rubs, systolic murmur Pulses: PRESENT: normal dorsalis pedis pul Vascular exam: PRESENT: normal capillary refill GI/Abdominal exam: PRESENT: normal bowel sounds, soft, other - Peritoneal dialysis catheter in place. Draining at this time.. ABSENT: distended, guarding, mass, organolmegaly, rebound, tenderness Extremities exam: PRESENT: full ROM. ABSENT: calf tenderness, clubbing, pedal edema Neurological exam: PRESENT: alert, awake, oriented to person, oriented to place, oriented to time, oriented to situation, CN II-XII grossly intact. ABSENT: motor sensory deficit Psychiatric exam: PRESENT: appropriate affect, normal mood. ABSENT: homicidal ideation, suicidal ideation Skin exam: PRESENT: dry, intact, warm. ABSENT: cyanosis, rash Results Laboratory Results: 09/30/18 04:13 09/30/18 04:13 10/01/18 09:20 Fluid Type PERITONEAL Fluid Source ABDOMEN Fluid Color COLORLESS Fluid Appearance CLEAR Fluid Viscosity LIQUID Fluid WBC 12 Fluid RBC 0 09/23/18 09/23/18 09/23/18 10:00 10:00 21:10 Creatine Kinase 155 121 CK-MB (CK-2) 8.07 H Troponin I NT-Pro-B Natriuret Pep 09/23/18 09/23/18 09/24/18 21:10 21:10 03:15 Creatine Kinase 95 CK-MB (CK-2) 6.03 H Troponin I 0.079 NT-Pro-B Natriuret Pep 09/24/18 09/24/18 03:15 03:15 Creatine Kinase CK-MB (CK-2) 4.97 H Troponin I 0.083 NT-Pro-B Natriuret Pep 79381 H Impressions: Abdomen/Pelvis CT 09/25/18 14:20 IMPRESSION: Small right pleural effusion. Mild peripelvic stranding in the right kidney. No significant perinephric stranding. No significant evidence of pyelonephritis. There is free fluid in the abdomen and pelvis with what appears to represent a peritoneal dialysis catheter. KUB X-Ray 10/01/18 00:00 IMPRESSION: Grossly nonobstructive bowel gas pattern. Peritoneal dialysis catheter over the right lower quadrant Assessment and Plan - Diagnosis (1) Severe sepsis Is this a current diagnosis for this admission?: Yes Plan: Continues to have cloudy urine and Moraes. We are still waiting recognized from ID. Will maintain plan of care as appropriate when ID makes recognitions. (2) Carcinoid syndrome Is this a current diagnosis for this admission?: Yes Plan: Awaiting 24-hour urine for 5 H1 AA as well as rapid test. I did order a CT scan of abdomen pelvis with IV contrast per oncology recommendations. (3) Acute urinary retention Is this a current diagnosis for this admission?: Yes Plan: Moraes remains in place. Patient will need urology follow-up (4) Chronic renal failure, stage 5 Is this a current diagnosis for this admission?: Yes Plan: Patient remains on peritoneal dialysis. Nephrology is following patient. - Time Time Spent with patient: 15-24 minutes
[2018-10-01] MEDS: FLUCONAZOLE 100 MG TABLET PO SCH (17:39)
--- NOTE | 2018-10-01 19:15 | PDOC PROGRESS REPORT ---
Subjective Progress Note for:: 10/01/18 Subjective:: Patient felt full with abdominal discomfort and apparently firm abdomen this morning so his nurses notified me community health advocate today. He did have a good ultrafiltration using the 4.25% to exchanges in a row. I ordered a KUB which only showed some stool. I also ordered a PD fluid cell count which showed negative evidence for peritonitis. When I saw the patient is afternoon he said the abdominal discomfort is much better. He did not seem to be in much pain. Otherwise his PD is going well. His urine remains to be cloudy and he remains to be on IV antibiotics for that. Reason For Visit: SEPSIS Physical Exam Vital Signs: Temp Pulse Resp BP Pulse Ox 97.3 F 65 20 112/28 L 100 10/01/18 16:59 10/01/18 18:37 10/01/18 16:59 10/01/18 16:59 10/01/18 16:59 Intake & Output 09/30/18 10/01/18 10/02/18 06:59 06:59 06:59 Intake Total 89159 8750 6005 Output Total 18673 8400 5650 Balance 260 350 355 Weight 97 kg 97.7 kg Exam: General appearance: PRESENT: no acute distress, cooperative, well-developed, we ll-nourished Head exam: PRESENT: atraumatic, normocephalic Eye exam: PRESENT: conjunctiva pale, PERRLA. ABSENT: scleral icterus Neck exam: ABSENT: JVD Respiratory exam: PRESENT: Normal breath sounds. ABSENT: crackles, rales, rhonchi, unlabored, wheezes Cardiovascular exam: PRESENT: Regular rate rhythm -+S1, +S2. ABSENT: diastolic murmur, systolic murmur GI/Abdominal exam: PRESENT: normal bowel sounds, semi-soft. PD catheter in place ABSENT: guarding, mass, tenderness Extremities exam: ABSENT: No edema Neurological exam: PRESENT: alert, awake, oriented to person, place and time. Skin exam: PRESENT: dry, warm, Cardiovascular exam: PRESENT: RRR, +S1, +S2. ABSENT: rubs GI/Abdominal exam: PRESENT: soft. ABSENT: tenderness Results Laboratory Results: 09/30/18 04:13 09/30/18 04:13 10/01/18 09:20 Fluid Type PERITONEAL Fluid Source ABDOMEN Fluid Color COLORLESS Fluid Appearance CLEAR Fluid Viscosity LIQUID Fluid WBC 12 Fluid RBC 0 09/23/18 09/23/18 09/23/18 10:00 10:00 21:10 Creatine Kinase 155 121 CK-MB (CK-2) 8.07 H Troponin I NT-Pro-B Natriuret Pep 09/23/18 09/23/18 09/24/18 21:10 21:10 03:15 Creatine Kinase 95 CK-MB (CK-2) 6.03 H Troponin I 0.079 NT-Pro-B Natriuret Pep 09/24/18 09/24/18 03:15 03:15 Creatine Kinase CK-MB (CK-2) 4.97 H Troponin I 0.083 NT-Pro-B Natriuret Pep 29168 H Impressions: Abdomen/Pelvis CT 09/25/18 14:20 IMPRESSION: Small right pleural effusion. Mild peripelvic stranding in the right kidney. No significant perinephric stranding. No significant evidence of pyelonephritis. There is free fluid in the abdomen and pelvis with what appears to represent a peritoneal dialysis catheter. KUB X-Ray 10/01/18 00:00 IMPRESSION: Grossly nonobstructive bowel gas pattern. Peritoneal dialysis catheter over the right lower quadrant Assessment & Plan - Diagnosis (1) End-stage renal disease on peritoneal dialysis Is this a current diagnosis for this admission?: Yes Plan: Due to abdominal discomfort a change his PD solution to just use 2.5% for now. He had good ultrafiltration yesterday. His KUB shows some stool although the patient did have some bowel movement this afternoon. I am going to give him a dose of lactulose so that he can have a little bit more bowel movement to unload the stool in his colon. No evidence of peritonitis as indicated in his PD fluid cell count. We will recheck labs including phosphorus tomorrow. (2) UTI (urinary tract infection) Qualifiers: Urinary tract infection type: site unspecified Hematuria presence: without hematuria Qualified Code(s): N39.0 - Urinary tract infection, site not specified Is this a current diagnosis for this admission?: Yes Plan: On IV ceftriaxone. Awaiting ID recommendations as the patient urine remains to be cloudy despite antibiotics. (3) Hypotension Is this a current diagnosis for this admission?: Yes Plan: Has occasional low blood pressure readings but overall has been improved and acceptable. (4) Anemia in chronic kidney disease Is this a current diagnosis for this admission?: Yes Plan: Patient received Procrit of 20,000 units subcutaneously on September 26 and a dose of IV Injectafer on September 27. (5) Hypokalemia Is this a current diagnosis for this admission?: Yes Plan: Continue potassium chloride to 40 mEq p.o. daily. (6) Acute urinary retention Is this a current diagnosis for this admission?: Yes Plan: Agree with indwelling Moraes catheter as the patient does not want to do intermittent catheterization at home. Advised patient that he would need to see a urologist after discharge. (7) Diabetes mellitus type 2 in obese Is this a current diagnosis for this admission?: Yes - Time Time with patient: 15-25 minutes
[2018-10-01] MEDS ORDERED: LACTULOSE SYRUP 20 GM/30 ML UDCUP PO ONE (19:30)
[2018-10-01] MEDS: INSULIN GLARGINE,HUM.REC.ANLOG 1,000 UNIT/10 ML VIAL SUBCUT SCH (21:35)
[2018-10-01] MEDS: ATORVASTATIN CALCIUM 80 MG TABLET PO SCH (21:35)
--- NOTE | 2018-10-01 23:16 | RADIOLOGY REPORT (SQ) ---
CLINICAL HISTORY: carcinoid syndrome COMPARISON: None. TECHNIQUE: CT ABDOMEN PELVIS WITH IV CONTRAST on 10/01/2018 12:00 AM CDT This exam was performed according to our departmental dose-optimization program, which includes automated exposure control, adjustment of the mA and/or kV according to patient size and/or use of iterative reconstruction technique. FINDINGS: There is predominantly right basilar airspace disease. There are trace bilateral pleural effusions. Abdomen: The liver is normal in appearance. There is no biliary dilatation. Gallbladder is normal in appearance. Stomach is moderately distended. There are multiple tiny calcifications throughout the pancreas. Spleen is normal in size. Adrenal glands are normal. Kidneys are moderately atrophic containing multiple small hypodense lesions which likely represent cysts appearing densities. Abdominal aorta is densely calcified without without aneurysm. There is no free air. There is no retroperitoneal adenopathy. Pelvis: There is mild to moderate distal colonic diverticulosis. Urinary bladder is markedly thickened. There is large amount of free pelvic fluid. There is a peritoneal dialysis catheter which terminates in the right lower quadrant. Appendix is normal. Skeleton: There are no acute osseous findings. No suspicious bony lesions. IMPRESSION: Moderate ascites. Pleural effusions with right basilar possible developing pneumonia. Extensive thickening of the urinary bladder.
[2018-10-02] MEDS: PANTOPRAZOLE SODIUM 40 MG TABLET.DR PO SCH ×2 (05:09→17:21)
[2018-10-02] MEDS: HEPARIN SOD (PORCINE) 5,000 UNIT/ML 1 ML SYRINGE SUBCUT SCH ×3 (05:09→22:39)
[2018-10-02 06:49] LABS: HEMATOCRIT 29.5 % (37.9-51.0); HEMOGLOBIN 9.5 g/dL (13.5-17.0); MEAN CORPUSCULAR HEMOGLOBIN 31.3 pg (27.0-33.4); MEAN CORPUSCULAR HGB CONC 32.3 g/dL (32.0-36.0); MEAN CORPUSCULAR VOLUME 97 fl (80-97); PLATELET COUNT 329 10^3/uL (150-450); RED BLOOD COUNT 3.04 10^6/uL (4.35-5.55); RED CELL DISTRIBUTION WIDTH 17.5 % (11.5-14.0); WHITE BLOOD COUNT 9.2 10^3/uL (4.0-10.5)
[2018-10-02 06:58] LABS: ANION GAP 10 (5-19); BLOOD UREA NITROGEN 38 mg/dL (7-20); CARBON DIOXIDE 26 mmol/L (22-30); CHLORIDE 102 mmol/L (98-107); GLUCOSE 154 mg/dL (75-110); POTASSIUM 4.5 mmol/L (3.6-5.0); SODIUM 137.8 mmol/L (137-145)
[2018-10-02 07:15] LABS: ABSOLUTE MONOCYTES # (MANUAL) 0.9 10^3/uL (0.1-1.4); BAND NEUTROPHILS % (MANUAL) 1 % (3-5); BASOPHILS % (MANUAL) 1 % (0-2); EOSINOPHILS % (MANUAL) 2 % (0-6); LYMPHOCYTES % (MANUAL) 22 % (13-45); MONOCYTES % (MANUAL) 10 % (3-13); SEGMENTED NEUTROPHILS % (MAN) 64 % (42-78); TOTAL CELLS COUNTED 100
[2018-10-02 07:16] LABS: ANISOCYTOSIS 1+; PLATELET COMMENT ADEQUATE
[2018-10-02] MEDS: IPRATROPIUM/ALBUTEROL 0.5-2.5 MG/3 ML AMPUL NEB SCH ×4 (07:42→20:35)
[2018-10-02] MEDS: INSULIN LISPRO 100 UNIT/ML 3 ML VIAL SUBCUT SCH ×4 (08:07→22:40)
--- NOTE | 2018-10-02 08:32 | PDOC PROGRESS REPORT ---
Subjective Progress Note for:: 10/02/18 Subjective:: Patient states that he had another bad episode early this morning. Still with flushing, anxiety and some diarrhea. Currently, he is feeling well. Reason For Visit: SEPSIS Physical Exam Vital Signs: Temp Pulse Resp BP Pulse Ox 97.9 F 72 18 149/52 H 98 10/02/18 03:08 10/02/18 07:42 10/02/18 07:42 10/02/18 05:30 10/02/18 07:42 Intake & Output 10/01/18 10/02/18 10/03/18 06:59 06:59 06:59 Intake Total 8750 99157 Output Total 8400 02152 Balance 350 985 Weight 97.7 kg 98.5 kg General appearance: PRESENT: well-developed, well-nourished Head exam: PRESENT: normocephalic Respiratory exam: PRESENT: unlabored GI/Abdominal exam: PRESENT: soft. ABSENT: tenderness Extremities exam: ABSENT: pedal edema Neurological exam: PRESENT: alert, awake Psychiatric exam: PRESENT: appropriate affect Skin exam: PRESENT: normal color Results Laboratory Results: 10/02/18 05:56 10/02/18 05:56 10/01/18 10/02/18 10/02/18 09:20 05:56 05:56 WBC RBC Hgb Hct MCV MCH MCHC RDW Plt Count Seg Neutrophils % Lymphocytes % Monocytes % Eosinophils % Basophils % Absolute Neutrophils Absolute Lymphocytes Absolute Monocytes Absolute Eosinophils Absolute Basophils Sodium 137.8 Potassium 4.5 Chloride 102 Carbon Dioxide 26 Anion Gap 10 BUN 38 H Creatinine 6.46 H Est GFR ( Amer) 10 L Est GFR (Non-Af Amer) 9 L Glucose 154 H Calcium 8.0 L Phosphorus 5.5 H Fluid Type PERITONEAL Fluid Source ABDOMEN Fluid Color COLORLESS Fluid Appearance CLEAR Fluid Viscosity LIQUID Fluid WBC 12 Fluid RBC 0 10/02/18 05:56 WBC 9.2 RBC 3.04 L Hgb 9.5 L Hct 29.5 L MCV 97 MCH 31.3 MCHC 32.3 RDW 17.5 H Plt Count 329 Seg Neutrophils % Not Reportable Lymphocytes % Not Reportable Monocytes % Not Reportable Eosinophils % Not Reportable Basophils % Not Reportable Absolute Neutrophils Not Reportable Absolute Lymphocytes Not Reportable Absolute Monocytes Not Reportable Absolute Eosinophils Not Reportable Absolute Basophils Not Reportable Sodium Potassium Chloride Carbon Dioxide Anion Gap BUN Creatinine Est GFR ( Amer) Est GFR (Non-Af Amer) Glucose Calcium Phosphorus Fluid Type Fluid Source Fluid Color Fluid Appearance Fluid Viscosity Fluid WBC Fluid RBC 09/23/18 09/23/18 09/23/18 10:00 10:00 21:10 Creatine Kinase 155 121 CK-MB (CK-2) 8.07 H Troponin I NT-Pro-B Natriuret Pep 09/23/18 09/23/18 09/24/18 21:10 21:10 03:15 Creatine Kinase 95 CK-MB (CK-2) 6.03 H Troponin I 0.079 NT-Pro-B Natriuret Pep 09/24/18 09/24/18 03:15 03:15 Creatine Kinase CK-MB (CK-2) 4.97 H Troponin I 0.083 NT-Pro-B Natriuret Pep 17790 H Impressions: Abdomen/Pelvis CT 10/01/18 00:00 IMPRESSION: Moderate ascites. Pleural effusions with right basilar possible developing pneumonia. Extensive thickening of the urinary bladder. KUB X-Ray 10/01/18 00:00 IMPRESSION: Grossly nonobstructive bowel gas pattern. Peritoneal dialysis catheter over the right lower quadrant Assessment & Plan - Diagnosis (1) Acute pyelonephritis Is this a current diagnosis for this admission?: Yes (2) Acute urinary retention Is this a current diagnosis for this admission?: Yes - Plan Summary Plan Summary: Yesterday, CT A/P with contrast was done, but CT Chest with IV contrast was not ordered. This should still be considered, as carcinoids may occur in the lungs as well. CT A/P was negative. Await 24 hour urine, as well as serum Chromogranin A. All patient's questions were answered. Await above results.
--- NOTE | 2018-10-02 09:01 | PDOC PROGRESS REPORT ---
Subjective Progress Note for:: 10/02/18 Subjective:: Ms. Giles is a very pleasant 67-year-old gentleman with end-stage renal disease on peritoneal dialysis sitting in the chair this morning no complaints. Patient states abdominal pain has subsided. Patient aware he will go downstairs for CT of the chest with IV contrast. Patient being followed by nephrology and oncology at this time. Reason For Visit: SEPSIS Physical Exam Vital Signs: Temp Pulse Resp BP Pulse Ox 97.9 F 72 18 149/52 H 98 10/02/18 03:08 10/02/18 07:42 10/02/18 07:42 10/02/18 05:30 10/02/18 07:42 Intake & Output 10/01/18 10/02/18 10/03/18 06:59 06:59 06:59 Intake Total 8750 83434 Output Total 8400 73804 Balance 350 985 Weight 97.7 kg 98.5 kg General appearance: PRESENT: no acute distress, well-developed, well-nourished Head exam: PRESENT: atraumatic, normocephalic Neck exam: ABSENT: carotid bruit, JVD, lymphadenopathy, thyromegaly Respiratory exam: PRESENT: clear to auscultation yair. ABSENT: rales, rhonchi, wheezes Cardiovascular exam: PRESENT: RRR. ABSENT: diastolic murmur, rubs, systolic murmur Pulses: PRESENT: normal dorsalis pedis pul Vascular exam: PRESENT: normal capillary refill GI/Abdominal exam: PRESENT: normal bowel sounds, soft - Peritoneal dialysis catheter in place. Extremities exam: PRESENT: full ROM. ABSENT: calf tenderness, clubbing, pedal edema Neurological exam: PRESENT: alert, awake, oriented to person, oriented to place, oriented to time, oriented to situation, CN II-XII grossly intact. ABSENT: motor sensory deficit Psychiatric exam: PRESENT: appropriate affect, normal mood. ABSENT: homicidal ideation, suicidal ideation Skin exam: PRESENT: other - Multiple bruises noted Results Laboratory Results: 10/02/18 05:56 10/02/18 05:56 10/01/18 10/02/18 10/02/18 09:20 05:56 05:56 WBC RBC Hgb Hct MCV MCH MCHC RDW Plt Count Seg Neutrophils % Lymphocytes % Monocytes % Eosinophils % Basophils % Absolute Neutrophils Absolute Lymphocytes Absolute Monocytes Absolute Eosinophils Absolute Basophils Sodium 137.8 Potassium 4.5 Chloride 102 Carbon Dioxide 26 Anion Gap 10 BUN 38 H Creatinine 6.46 H Est GFR ( Amer) 10 L Est GFR (Non-Af Amer) 9 L Glucose 154 H Calcium 8.0 L Phosphorus 5.5 H Fluid Type PERITONEAL Fluid Source ABDOMEN Fluid Color COLORLESS Fluid Appearance CLEAR Fluid Viscosity LIQUID Fluid WBC 12 Fluid RBC 0 10/02/18 05:56 WBC 9.2 RBC 3.04 L Hgb 9.5 L Hct 29.5 L MCV 97 MCH 31.3 MCHC 32.3 RDW 17.5 H Plt Count 329 Seg Neutrophils % Not Reportable Lymphocytes % Not Reportable Monocytes % Not Reportable Eosinophils % Not Reportable Basophils % Not Reportable Absolute Neutrophils Not Reportable Absolute Lymphocytes Not Reportable Absolute Monocytes Not Reportable Absolute Eosinophils Not Reportable Absolute Basophils Not Reportable Sodium Potassium Chloride Carbon Dioxide Anion Gap BUN Creatinine Est GFR ( Amer) Est GFR (Non-Af Amer) Glucose Calcium Phosphorus Fluid Type Fluid Source Fluid Color Fluid Appearance Fluid Viscosity Fluid WBC Fluid RBC 09/23/18 09/23/18 09/23/18 10:00 10:00 21:10 Creatine Kinase 155 121 CK-MB (CK-2) 8.07 H Troponin I NT-Pro-B Natriuret Pep 09/23/18 09/23/18 09/24/18 21:10 21:10 03:15 Creatine Kinase 95 CK-MB (CK-2) 6.03 H Troponin I 0.079 NT-Pro-B Natriuret Pep 09/24/18 09/24/18 03:15 03:15 Creatine Kinase CK-MB (CK-2) 4.97 H Troponin I 0.083 NT-Pro-B Natriuret Pep 34832 H Impressions: Abdomen/Pelvis CT 10/01/18 00:00 IMPRESSION: Moderate ascites. Pleural effusions with right basilar possible developing pneumonia. Extensive thickening of the urinary bladder. KUB X-Ray 10/01/18 00:00 IMPRESSION: Grossly nonobstructive bowel gas pattern. Peritoneal dialysis catheter over the right lower quadrant Assessment and Plan - Diagnosis (1) Severe sepsis Is this a current diagnosis for this admission?: Yes Plan: Continues to have cloudy urine and Moraes. We are still waiting recognized from ID. Will maintain plan of care as appropriate when ID makes recognitions. 10/02/2018-nephrology in agreement with leaving Moraes intact until patient is seen on an outpatient basis. No other changes to plan of care in regards to Moraes catheter at this time. (2) Carcinoid syndrome Is this a current diagnosis for this admission?: Yes Plan: Awaiting 24-hour urine for 5 H1 AA as well as rapid test. I did order a CT scan of abdomen pelvis with IV contrast per oncology recommendations. 10/02/2018-CT chest with IV contrast to rule out carcinoid syndrome. Awaiting 5 H1 AA test as well. We will continue to follow along with oncology and make changes plan of care based on recommendations. (3) Acute urinary retention Is this a current diagnosis for this admission?: Yes Plan: Moraes remains in place. Patient will need urology follow-up 10/02/2018-no changes. Nephrology agrees with follow-up care by urology and leav ing Moraes in place. (4) Chronic renal failure, stage 5 Is this a current diagnosis for this admission?: Yes Plan: Patient remains on peritoneal dialysis. Nephrology is following patient. 10/02/2018-continue peritoneal dialysis especially given the fact patient has gotten IV contrast for CT abdomen pelvis and chest (5) UTI (urinary tract infection) Qualifiers: Urinary tract infection type: site unspecified Hematuria presence: without hematuria Qualified Code(s): N39.0 - Urinary tract infection, site not specified Is this a current diagnosis for this admission?: Yes Plan: 09/23/2018-patient came in with lower abdominal pains unable to urinate urinalysis shows turbid colored urine positive for leukocyte esterase blood cultures urine cultures are requested started on antibiotics. 10/02/2018-urine culture shows Yady patient remains on Diflucan. Also urine remains cloudy and patient remains on Rocephin IV. We are awaiting final cultures to return to make final decision on plan of care. - Time Time Spent with patient: 15-24 minutes - Inpatient Certification Medical Necessity: Other - Patient remains on IV antibiotics. Patient also obtaining CT abdomen pelvis and chest to rule out carcinoid syndrome remains on dialysis secondary to chronic renal failure and requires further monitoring.
[2018-10-02] MEDS: GENTAMICIN SULFATE 0.1% CREAM 15 GM TP SCH (10:07)
[2018-10-02] MEDS: POTASSIUM CHLORIDE 10 MEQ CAPSULE.ER PO SCH (10:07)
[2018-10-02] MEDS: CEFTRIAXONE SODIUM 1,000 MG in DEXTROSE 5%-WATER 50 ML IV SCH (10:08)
[2018-10-02] MEDS: FOLIC ACID/VITAMIN B COMP W-C CAPSULE PO SCH (10:08)
[2018-10-02] MEDS: CARVEDILOL 12.5 MG TABLET PO SCH (10:08)
[2018-10-02] MEDS: ASPIRIN 81 MG TABLET, CHEWABLE PO SCH (10:08)
[2018-10-02] MEDS: ISOSORBIDE MONONITRATE 30 MG TAB.ER.24H PO SCH (10:08)
[2018-10-02] MEDS: ESCITALOPRAM OXALATE 10 MG TABLET PO SCH (10:08)
[2018-10-02] MEDS: FINASTERIDE 5 MG TABLET PO SCH (10:08)
[2018-10-02 10:12] LABS: PATH REVIEW PATHOLOGIST REVIEWED
[2018-10-02] MEDS ORDERED: NORMAL SALINE 250 ML with FUROSEMIDE 250 MG IV PRN ×2 (14:05)
[2018-10-02] MEDS: ARIPIPRAZOLE 2 MG TABLET PO SCH (14:38)
--- NOTE | 2018-10-02 17:58 | PDOC PROGRESS REPORT ---
Subjective Progress Note for:: 10/02/18 Subjective:: The patient does not have any new complaints. However his nurse describes episodes of severe diaphoresis which he had a severe episode today. He is still being worked up for possible carcinoid syndrome. The CT scan of the abdomen was so far negative. CT scan of the chest with contrast is again ordered. In terms of his CAPD so far he has not complained of any abdominal discomfort today. He had good bowel movement with the lactulose dose that I gave last night and today. We are only using 2.5% dialysis solution so he is not getting any ultrafiltration for the last few exchanges. Reason For Visit: SEPSIS Physical Exam Vital Signs: Temp Pulse Resp BP Pulse Ox 97.9 F 77 16 136/37 H 90 L 10/02/18 03:08 10/02/18 16:42 10/02/18 11:21 10/02/18 14:00 10/02/18 16:42 Intake & Output 10/01/18 10/02/18 10/03/18 06:59 06:59 06:59 Intake Total 8750 45676 3030 Output Total 8400 92241 2300 Balance 350 985 730 Weight 97.7 kg 98.5 kg 97.1 kg Exam: General appearance: PRESENT: no acute distress, cooperative, well-developed, well-nourished Head exam: PRESENT: atraumatic, normocephalic Eye exam: PRESENT: conjunctiva pale, PERRLA. ABSENT: scleral icterus Neck exam: ABSENT: JVD Respiratory exam: PRESENT: Normal breath sounds. ABSENT: crackles, rales, rhonchi, unlabored, wheezes Cardiovascular exam: PRESENT: Regular rate rhythm -+S1, +S2. ABSENT: diastolic murmur, systolic murmur GI/Abdominal exam: PRESENT: normal bowel sounds, soft, improved compared to yesterday ABSENT: guarding, mass, tenderness Extremities exam: ABSENT: No edema Neurological exam: PRESENT: alert, awake, oriented to person, place and time. Skin exam: PRESENT: dry, warm, Cardiovascular exam: PRESENT: RRR, +S1, +S2. ABSENT: rubs GI/Abdominal exam: PRESENT: soft. ABSENT: tenderness Results Laboratory Results: 10/02/18 05:56 10/02/18 05:56 10/02/18 10/02/18 10/02/18 05:56 05:56 05:56 WBC 9.2 RBC 3.04 L Hgb 9.5 L Hct 29.5 L MCV 97 MCH 31.3 MCHC 32.3 RDW 17.5 H Plt Count 329 Seg Neutrophils % Not Reportable Lymphocytes % Not Reportable Monocytes % Not Reportable Eosinophils % Not Reportable Basophils % Not Reportable Absolute Neutrophils Not Reportable Absolute Lymphocytes Not Reportable Absolute Monocytes Not Reportable Absolute Eosinophils Not Reportable Absolute Basophils Not Reportable Sodium 137.8 Potassium 4.5 Chloride 102 Carbon Dioxide 26 Anion Gap 10 BUN 38 H Creatinine 6.46 H Est GFR ( Amer) 10 L Est GFR (Non-Af Amer) 9 L Glucose 154 H Calcium 8.0 L Phosphorus 5.5 H 09/23/18 09/23/18 09/23/18 10:00 10:00 21:10 Creatine Kinase 155 121 CK-MB (CK-2) 8.07 H Troponin I NT-Pro-B Natriuret Pep 09/23/18 09/23/18 09/24/18 21:10 21:10 03:15 Creatine Kinase 95 CK-MB (CK-2) 6.03 H Troponin I 0.079 NT-Pro-B Natriuret Pep 09/24/18 09/24/18 03:15 03:15 Creatine Kinase CK-MB (CK-2) 4.97 H Troponin I 0.083 NT-Pro-B Natriuret Pep 58631 H Impressions: Abdomen/Pelvis CT 10/01/18 00:00 IMPRESSION: Moderate ascites. Pleural effusions with right basilar possible developing pneumonia. Extensive thickening of the urinary bladder. KUB X-Ray 10/01/18 00:00 IMPRESSION: Grossly nonobstructive bowel gas pattern. Peritoneal dialysis catheter over the right lower quadrant Assessment & Plan - Diagnosis (1) End-stage renal disease on peritoneal dialysis Is this a current diagnosis for this admission?: Yes Plan: We will change his regimen to use 2.5% PD solution for 3 exchanges and to use 4.25% on one exchange. He still has to use 1.5% if systolic blood pressures less than 110. Change in regimen discussed with the nurse. (2) UTI (urinary tract infection) Qualifiers: Urinary tract infection type: site unspecified Hematuria presence: without hematuria Qualified Code(s): N39.0 - Urinary tract infection, site not specified Is this a current diagnosis for this admission?: Yes Plan: On IV ceftriaxone. Awaiting ID recommendations as the patient urine remains to be cloudy despite antibiotics. (3) Hypotension Is this a current diagnosis for this admission?: Yes Plan: Improved. (4) Anemia in chronic kidney disease Is this a current diagnosis for this admission?: Yes Plan: Patient received Procrit of 20,000 units subcutaneously on September 26 and a dose of IV Injectafer on September 27. Will give another dose of Procrit tomorrow. Hemoglobin improved today. (5) Hypokalemia Is this a current diagnosis for this admission?: Yes Plan: Continue potassium chloride to 40 mEq p.o. daily. (6) Acute urinary retention Is this a current diagnosis for this admission?: Yes Plan: Agree with indwelling Moraes catheter as the patient does not want to do intermittent catheterization at home. Advised patient that he would need to see a urologist after discharge. (7) Diabetes mellitus type 2 in obese Is this a current diagnosis for this admission?: Yes (8) Abnormal flushing and sweating Is this a current diagnosis for this admission?: Yes Plan: Patient being worked up for carcinoid syndrome. Oncology on board. - Time Time with patient: 15-25 minutes
[2018-10-02] MEDS: INSULIN GLARGINE,HUM.REC.ANLOG 1,000 UNIT/10 ML VIAL SUBCUT SCH (22:39)
[2018-10-02] MEDS: ATORVASTATIN CALCIUM 80 MG TABLET PO SCH (22:40)
[2018-10-03] MEDS: CARVEDILOL 12.5 MG TABLET PO SCH ×2 (00:20→10:10)
[2018-10-03] MEDS: HEPARIN SOD (PORCINE) 5,000 UNIT/ML 1 ML SYRINGE SUBCUT SCH ×3 (05:09→21:58)
[2018-10-03] MEDS: PANTOPRAZOLE SODIUM 40 MG TABLET.DR PO SCH ×2 (05:09→17:55)
[2018-10-03 06:23] LABS: HEMATOCRIT 24.8 % (37.9-51.0); HEMOGLOBIN 8.1 g/dL (13.5-17.0); MEAN CORPUSCULAR HEMOGLOBIN 31.3 pg (27.0-33.4); MEAN CORPUSCULAR HGB CONC 32.5 g/dL (32.0-36.0); MEAN CORPUSCULAR VOLUME 96 fl (80-97); PLATELET COUNT 294 10^3/uL (150-450); RED BLOOD COUNT 2.58 10^6/uL (4.35-5.55); RED CELL DISTRIBUTION WIDTH 17.8 % (11.5-14.0); WHITE BLOOD COUNT 8.8 10^3/uL (4.0-10.5)
[2018-10-03 06:47] LABS: ANION GAP 9 (5-19); BLOOD UREA NITROGEN 36 mg/dL (7-20); CALCIUM 7.6 mg/dL (8.4-10.2); CARBON DIOXIDE 27 mmol/L (22-30); CHLORIDE 101 mmol/L (98-107); GLUCOSE 214 mg/dL (75-110); POTASSIUM 4.1 mmol/L (3.6-5.0); SODIUM 136.9 mmol/L (137-145)
--- NOTE | 2018-10-03 06:49 | Progress Note Acknowledgement ---
Progress Note Acknowledgement Progess Note Acknowledgement: I, the undersigned member of the medical staff with appropriate privileges and with supervisory authority over Mack Scanlon, a [facility] practice allied health professional, acknowledge that I have reviewed the progress notes entered on this patient, and in my professional judgment believe that the assessment made and/or any care evidenced was appropriate
[2018-10-03 07:19] LABS: 5-HIAA URINE 6.5 mg/L (Undefined); 5-HIAA URINE 24HR 2.9 mg/24 hr (0.0-14.9)
[2018-10-03] MEDS: IPRATROPIUM/ALBUTEROL 0.5-2.5 MG/3 ML AMPUL NEB SCH ×4 (07:30→19:59)
--- NOTE | 2018-10-03 08:01 | PDOC PROGRESS REPORT ---
Subjective Progress Note for:: 10/03/18 Subjective:: Mr. Giles is a very pleasant 67-year-old gentleman with end-stage renal disease on peritoneal dialysis sitting in the chair this morning no complaints. Patient states abdominal pain has subsided. Patient aware he will go downstairs for CT of the chest with IV contrast. Patient being followed by nephrology and oncology at this time. 10/03/2018-patient laying in bed this a.m. with no acute distress. Dr. Sabillon is in the room discussing results with patient. I had a discussion with Dr. Sabillon as well about the results of the patient's pending carcinoid syndrome studies. Reason For Visit: SEPSIS Physical Exam Vital Signs: Temp Pulse Resp BP Pulse Ox 97.8 F 66 16 141/88 H 100 10/03/18 07:41 10/03/18 07:41 10/03/18 07:41 10/03/18 07:41 10/03/18 07:41 Intake & Output 10/02/18 10/03/18 10/04/18 06:59 06:59 06:59 Intake Total 48709 8130 Output Total 54660 8000 Balance 985 130 Weight 98.5 kg 98.2 kg General appearance: PRESENT: no acute distress, well-developed, well-nourished Neck exam: ABSENT: carotid bruit, JVD, lymphadenopathy, thyromegaly Respiratory exam: PRESENT: clear to auscultation yair. ABSENT: rales, rhonchi, wheezes Cardiovascular exam: PRESENT: RRR. ABSENT: diastolic murmur, rubs, systolic murmur GI/Abdominal exam: PRESENT: normal bowel sounds, soft. ABSENT: distended, gu arding, mass, organolmegaly, rebound, tenderness Extremities exam: PRESENT: full ROM. ABSENT: calf tenderness, clubbing, pedal edema Neurological exam: PRESENT: alert, awake, oriented to person, oriented to place, oriented to time, oriented to situation, CN II-XII grossly intact. ABSENT: motor sensory deficit Psychiatric exam: PRESENT: appropriate affect, normal mood. ABSENT: homicidal ideation, suicidal ideation Results Laboratory Results: 10/03/18 06:08 10/03/18 06:08 10/03/18 10/03/18 06:08 06:08 WBC 8.8 RBC 2.58 L Hgb 8.1 L Hct 24.8 L MCV 96 MCH 31.3 MCHC 32.5 RDW 17.8 H Plt Count 294 Sodium 136.9 L Potassium 4.1 Chloride 101 Carbon Dioxide 27 Anion Gap 9 BUN 36 H Creatinine 6.18 H Est GFR ( Amer) 11 L Est GFR (Non-Af Amer) 9 L Glucose 214 H Calcium 7.6 L 09/23/18 09/23/18 09/23/18 10:00 10:00 21:10 Creatine Kinase 155 121 CK-MB (CK-2) 8.07 H Troponin I NT-Pro-B Natriuret Pep 09/23/18 09/23/18 09/24/18 21:10 21:10 03:15 Creatine Kinase 95 CK-MB (CK-2) 6.03 H Troponin I 0.079 NT-Pro-B Natriuret Pep 09/24/18 09/24/18 03:15 03:15 Creatine Kinase CK-MB (CK-2) 4.97 H Troponin I 0.083 NT-Pro-B Natriuret Pep 22600 H Impressions: Abdomen/Pelvis CT 10/01/18 00:00 IMPRESSION: Moderate ascites. Pleural effusions with right basilar possible developing pneumonia. Extensive thickening of the urinary bladder. KUB X-Ray 10/01/18 00:00 IMPRESSION: Grossly nonobstructive bowel gas pattern. Peritoneal dialysis catheter over the right lower quadrant Assessment and Plan - Diagnosis (1) Severe sepsis Is this a current diagnosis for this admission?: Yes Plan: Continues to have cloudy urine and Moraes. We are still waiting recognized from ID. Will maintain plan of care as appropriate when ID makes recognitions. 10/02/2018-nephrology in agreement with leaving Moraes intact until patient is seen on an outpatient basis. No other changes to plan of care in regards to Moraes catheter at this time. 10/03/2018-continue to await recommendations from infectious disease as to antibiotic therapy for patient. We did repeat the current urine culture yesterday awaiting those results. (2) Carcinoid syndrome Is this a current diagnosis for this admission?: Yes Plan: Awaiting 24-hour urine for 5 H1 AA as well as rapid test. I did order a CT scan of abdomen pelvis with IV contrast per oncology recommendations. 10/02/2018-CT chest with IV contrast to rule out carcinoid syndrome. Awaiting 5 H1 AA test as well. We will continue to follow along with oncology and make changes plan of care based on recommendations. 10/03/2018-awaiting official results from CT chest with IV contrast. Did discuss this with Dr. Sabillon this a.m. 5 H1 AA test was negative. Dr. Sabillon thinks this may be something other than carcinoid syndrome at this time. Will await further recommendations per Dr. Sabillon (3) Acute urinary retention Is this a current diagnosis for this admission?: Yes Plan: Moraes remains in place. Patient will need urology follow-up 10/02/2018-no changes. Nephrology agrees with follow-up care by urology and leaving Moraes in place. 10/03/2018-no changes. Moraes remains intact (4) Chronic renal failure, stage 5 Is this a current diagnosis for this admission?: Yes Plan: Patient remains on peritoneal dialysis. Nephrology is following patient. 10/02/2018-continue peritoneal dialysis especially given the fact patient has gotten IV contrast for CT abdomen pelvis and chest 10/03/2018-patient will have peritoneal dialysis this a.m. Will follow (5) UTI (urinary tract infection) Qualifiers: Urinary tract infection type: site unspecified Hematuria presence: without hematuria Qualified Code(s): N39.0 - Urinary tract infection, site not specified Is this a current diagnosis for this admission?: Yes Plan: 09/23/2018-patient came in with lower abdominal pains unable to urinate urinalysis shows turbid colored urine positive for leukocyte esterase blood cultures urine cultures are requested started on antibiotics. 10/02/2018-urine culture shows Yady patient remains on Diflucan. Also urine remains cloudy and patient remains on Rocephin IV. We are awaiting final cultures to return to make final decision on plan of care. 10/03/2018-await urine culture. Continue IV Rocephin and Diflucan. (6) Depression Is this a current diagnosis for this admission?: Yes Plan: 10/03/2018-discussed depression with nursing staff yesterday. Awaiting regulations from psychiatry. Patient on long-acting antidepressant I will add Abilify 2 mg p.o. daily and await further condition per psychiatry. - Time Time Spent with patient: 15-24 minutes - Inpatient Certification Post Hospital Care: Other - Patient continues with IV Rocephin for UTI, peritoneal dialysis, and further testing by oncology for carcinoid syndrome.
[2018-10-03] MEDS: INSULIN LISPRO 100 UNIT/ML 3 ML VIAL SUBCUT SCH ×4 (08:38→21:57)
[2018-10-03] MEDS ORDERED: EPOETIN ALFA-EPBX 40,000 UNIT/ML VIAL (RENAL) SUBCUT ONE (10:00)
[2018-10-03] MEDS ORDERED: EPOETIN ALFA-EPBX 20,000 UNITS (NON-ESRD) in SYRINGE SUBCUT ONE (10:00)
--- NOTE | 2018-10-03 10:06 | PDOC PROGRESS REPORT ---
Subjective Progress Note for:: 10/03/18 Subjective:: Patient feeling about the same. diarrhea does not always come with the episodes of sweating. No new complaints. Reason For Visit: SEPSIS Physical Exam Vital Signs: Temp Pulse Resp BP Pulse Ox 97.8 F 66 16 141/88 H 100 10/03/18 07:41 10/03/18 07:41 10/03/18 07:41 10/03/18 07:41 10/03/18 07:41 Intake & Output 10/02/18 10/03/18 10/04/18 06:59 06:59 06:59 Intake Total 44472 8130 Output Total 54950 8000 Balance 985 130 Weight 98.5 kg 98.2 kg Head exam: PRESENT: normocephalic Respiratory exam: PRESENT: unlabored GI/Abdominal exam: PRESENT: other - large abdominal girth Extremities exam: ABSENT: pedal edema Neurological exam: PRESENT: alert, awake Psychiatric exam: PRESENT: appropriate affect Skin exam: PRESENT: normal color Results Laboratory Results: 10/03/18 06:08 10/03/18 06:08 10/03/18 10/03/18 06:08 06:08 WBC 8.8 RBC 2.58 L Hgb 8.1 L Hct 24.8 L MCV 96 MCH 31.3 MCHC 32.5 RDW 17.8 H Plt Count 294 Sodium 136.9 L Potassium 4.1 Chloride 101 Carbon Dioxide 27 Anion Gap 9 BUN 36 H Creatinine 6.18 H Est GFR ( Amer) 11 L Est GFR (Non-Af Amer) 9 L Glucose 214 H Calcium 7.6 L 09/23/18 09/23/18 09/23/18 10:00 10:00 21:10 Creatine Kinase 155 121 CK-MB (CK-2) 8.07 H Troponin I NT-Pro-B Natriuret Pep 09/23/18 09/23/18 09/24/18 21:10 21:10 03:15 Creatine Kinase 95 CK-MB (CK-2) 6.03 H Troponin I 0.079 NT-Pro-B Natriuret Pep 09/24/18 09/24/18 03:15 03:15 Creatine Kinase CK-MB (CK-2) 4.97 H Troponin I 0.083 NT-Pro-B Natriuret Pep 37165 H Impressions: Abdomen/Pelvis CT 10/01/18 00:00 IMPRESSION: Moderate ascites. Pleural effusions with right basilar possible developing pneumonia. Extensive thickening of the urinary bladder. KUB X-Ray 10/01/18 00:00 IMPRESSION: Grossly nonobstructive bowel gas pattern. Peritoneal dialysis catheter over the right lower quadrant Assessment & Plan - Diagnosis (1) Acute pyelonephritis Is this a current diagnosis for this admission?: Yes (2) Acute urinary retention Is this a current diagnosis for this admission?: Yes - Plan Summary Plan Summary: I am still awaiting Chromogranin A and CT chest report. However, patients with carcinoid usually have chronic diarrhea, which patient does not have. We could start a trial of octreotide short-acting PRN, but again, this is usually better for the diarrhea. I am still under the impression that these may be due to another type of hormone surges or infection. I will continue to follow.
[2018-10-03] MEDS: ISOSORBIDE MONONITRATE 30 MG TAB.ER.24H PO SCH (10:09)
[2018-10-03] MEDS: ESCITALOPRAM OXALATE 10 MG TABLET PO SCH (10:09)
[2018-10-03] MEDS: FINASTERIDE 5 MG TABLET PO SCH (10:09)
[2018-10-03] MEDS: ARIPIPRAZOLE 2 MG TABLET PO SCH (10:10)
[2018-10-03] MEDS: POTASSIUM CHLORIDE 10 MEQ CAPSULE.ER PO SCH (10:10)
[2018-10-03] MEDS: ASPIRIN 81 MG TABLET, CHEWABLE PO SCH (10:10)
[2018-10-03] MEDS: FOLIC ACID/VITAMIN B COMP W-C CAPSULE PO SCH (10:10)
--- NOTE | 2018-10-03 12:02 | PDOC PROGRESS REPORT ---
Subjective Progress Note for:: 10/03/18 Subjective:: Patient's condition remains unchanged. In terms of his PD seems to be doing well and has not had any abdominal discomfort for the last 24 to 36 hours. He had a decent ultrafiltration with 1 exchange of 4.25%. He continues to have diaphoresis episodes. No other new complaints. Reason For Visit: SEPSIS Physical Exam Vital Signs: Temp Pulse Resp BP Pulse Ox 97.2 F 62 19 140/49 H 98 10/03/18 11:15 10/03/18 11:15 10/03/18 11:15 10/03/18 11:15 10/03/18 11:15 Intake & Output 10/02/18 10/03/18 10/04/18 06:59 06:59 06:59 Intake Total 16402 8130 Output Total 31625 8000 Balance 985 130 Weight 98.5 kg 98.2 kg Exam: General appearance: PRESENT: no acute distress, cooperative, well-developed, well-nourished Head exam: PRESENT: atraumatic, normocephalic Eye exam: PRESENT: conjunctiva pale, PERRLA. ABSENT: scleral icterus Neck exam: ABSENT: JVD Respiratory exam: PRESENT: Normal breath sounds. ABSENT: crackles, rales, rhonchi, unlabored, wheezes Cardiovascular exam: PRESENT: Regular rate rhythm -+S1, +S2. ABSENT: diastolic murmur, systolic murmur GI/Abdominal exam: PRESENT: normal bowel sounds, soft. ABSENT: guarding, mass, tenderness Extremities exam: ABSENT: No edema Neurological exam: PRESENT: alert, awake, oriented to person, place and time. Skin exam: PRESENT: dry, warm, Cardiovascular exam: PRESENT: RRR, +S1, +S2. ABSENT: rubs GI/Abdominal exam: PRESENT: soft. ABSENT: tenderness Results Laboratory Results: 10/03/18 06:08 10/03/18 06:08 10/03/18 10/03/18 06:08 06:08 WBC 8.8 RBC 2.58 L Hgb 8.1 L Hct 24.8 L MCV 96 MCH 31.3 MCHC 32.5 RDW 17.8 H Plt Count 294 Sodium 136.9 L Potassium 4.1 Chloride 101 Carbon Dioxide 27 Anion Gap 9 BUN 36 H Creatinine 6.18 H Est GFR ( Amer) 11 L Est GFR (Non-Af Amer) 9 L Glucose 214 H Calcium 7.6 L 09/23/18 09/23/18 09/23/18 10:00 10:00 21:10 Creatine Kinase 155 121 CK-MB (CK-2) 8.07 H Troponin I NT-Pro-B Natriuret Pep 09/23/18 09/23/18 09/24/18 21:10 21:10 03:15 Creatine Kinase 95 CK-MB (CK-2) 6.03 H Troponin I 0.079 NT-Pro-B Natriuret Pep 09/24/18 09/24/18 03:15 03:15 Creatine Kinase CK-MB (CK-2) 4.97 H Troponin I 0.083 NT-Pro-B Natriuret Pep 65429 H Impressions: Abdomen/Pelvis CT 10/01/18 00:00 IMPRESSION: Moderate ascites. Pleural effusions with right basilar possible developing pneumonia. Extensive thickening of the urinary bladder. KUB X-Ray 10/01/18 00:00 IMPRESSION: Grossly nonobstructive bowel gas pattern. Peritoneal dialysis catheter over the right lower quadrant Assessment & Plan - Diagnosis (1) End-stage renal disease on peritoneal dialysis Is this a current diagnosis for this admission?: Yes Plan: Continue his regimen to use 2.5% PD solution for 3 exchanges and to use 4.25% on one exchange. He still has to use 1.5% if systolic blood pressures less than 110. Discussed with his nurse today. (2) UTI (urinary tract infection) Qualifiers: Urinary tract infection type: site unspecified Hematuria presence: without hematuria Qualified Code(s): N39.0 - Urinary tract infection, site not specified Is this a current diagnosis for this admission?: Yes Plan: On IV ceftriaxone. Awaiting ID recommendations as the patient urine remains to be cloudy despite antibiotics. (3) Hypotension Is this a current diagnosis for this admission?: Yes Plan: Improved. (4) Anemia in chronic kidney disease Is this a current diagnosis for this admission?: Yes Plan: Patient received Procrit of 20,000 units subcutaneously on September 26 and a dose of IV Injectafer on September 27. Will give another dose of Procrit today. Hemoglobin improved today. (5) Hypokalemia Is this a current diagnosis for this admission?: Yes Plan: Continue potassium chloride to 40 mEq p.o. daily. (6) Acute urinary retention Is this a current diagnosis for this admission?: Yes Plan: Agree with indwelling Moraes catheter as the patient does not want to do inter mittent catheterization at home. Advised patient that he would need to see a urologist after discharge. (7) Diabetes mellitus type 2 in obese Is this a current diagnosis for this admission?: Yes (8) Abnormal flushing and sweating Is this a current diagnosis for this admission?: Yes Plan: Patient being worked up for carcinoid syndrome. Oncology on board. - Time Time with patient: 15-25 minutes
[2018-10-03] MEDS: GENTAMICIN SULFATE 0.1% CREAM 15 GM TP SCH (12:51)
--- NOTE | 2018-10-03 12:53 | RADIOLOGY REPORT (SQ) ---
EXAM DESCRIPTION: CT CHEST WITH COMPLETED DATE/TIME: 10/03/2018 3:58 am REASON FOR STUDY: malignancy COMPARISON: CT abdomen and pelvis dated 09/25/2018 TECHNIQUE: CT scan of the chest performed using helical scanning technique with dynamic intravenous contrast injection. Images reviewed with lung, soft tissue and bone windows. Reconstructed coronal and sagittal MPR and MIP images reviewed. All images stored on PACS. All CT scanners at this facility use dose modulation, iterative reconstruction, and/or weight based d osing when appropriate to reduce radiation dose to as low as reasonably achievable (ALARA). [facility]: Dose Right [facility]: CareDose [facility]: Dose Right [facility]: Teradose 4D [facility]: Friend Traveler CONTRAST TYPE AND DOSE: 80 mL Omnipaque 350 RENAL FUNCTION: The patient is on dialysis. RADIATION DOSE: . LIMITATIONS: None. FINDINGS: LUNGS AND PLEURA: There are bilateral emphysematous changes. There is right lower lobe at electasis. There is a small right pleural effusion unchanged from prior CT abdomen and pelvis. Ther e is fluid along the right major fissure. There is a small left pleural effusion. Probable developi ng subpleural fibrosis in the right lower lobe. HILAR AND MEDIASTINAL STRUCTURES: There are small scattered prevascular and mediastinal nodes. These are nonspecific but most likely reactive. HEART AND VASCULAR STRUCTURES: No aneurysm or dissection. No central pulmonary emboli. No pericardi al effusion. HARDWARE: None in the chest. UPPER ABDOMEN: There is free fluid in the upper abdomen consistent with peritoneal dialysis. THYROID AND OTHER SOFT TISSUES: No masses. No adenopathy. BONES: No significant finding. OTHER: No other significant finding. IMPRESSION: 1. Bilateral emphysematous changes. Probable developing subpleural fibrosis in the righ t lower lobe. 2. Stable small right pleural effusion with right lower lobe atelectasis. There is fluid in the rig ht major fissure as well. There is a small left effusion. 3. Small scattered mediastinal and prevascular lymph nodes most likely reactive. 4. Free fluid the abdomen stable from prior exam and consistent with fluid from peritoneal dialysis. TECHNICAL DOCUMENTATION: JOB ID: [id number] Quality ID # [id number]: Final reports with documentation of one or more dose reduction techniques (e.g., Au tomated exposure control, adjustment of the mA and/or kV according to patient size, use of iterative reconstruction technique) 2010 [employer]- All Rights Reserved Reading location - IP/workstation name: [email or web address]
[2018-10-03] MEDS ORDERED: ONDANSETRON HCL INJ/PF 4 MG/2 ML SDV IV PRN (15:30)
[2018-10-03] MEDS: GUAIFENESIN/D-METHORPHAN (200-20 MG) SYRUP 10 ML PO PRN (18:55)
[2018-10-03] MEDS: INSULIN GLARGINE,HUM.REC.ANLOG 1,000 UNIT/10 ML VIAL SUBCUT SCH (21:56)
[2018-10-04] MEDS: ATORVASTATIN CALCIUM 80 MG TABLET PO SCH ×2 (01:30→21:58)
[2018-10-04] MEDS: CARVEDILOL 12.5 MG TABLET PO SCH ×3 (01:30→21:58)
[2018-10-04] MEDS: PANTOPRAZOLE SODIUM 40 MG TABLET.DR PO SCH ×2 (06:36→16:18)
[2018-10-04] MEDS: HEPARIN SOD (PORCINE) 5,000 UNIT/ML 1 ML SYRINGE SUBCUT SCH ×3 (06:36→21:58)
[2018-10-04] MEDS: IPRATROPIUM/ALBUTEROL 0.5-2.5 MG/3 ML AMPUL NEB SCH ×4 (07:28→21:03)
[2018-10-04] MEDS: INSULIN LISPRO 100 UNIT/ML 3 ML VIAL SUBCUT SCH ×4 (07:47→21:57)
--- NOTE | 2018-10-04 08:36 | PDOC PROGRESS REPORT ---
Subjective Progress Note for:: 10/04/18 Subjective:: Patient states that he feels cold all the time now. He is bundled up in blankets. He is anxious to go home, as all IV ABX have been stopped. He is still having episodes of hot flashes, but these are not accompanied by any pain or diarrhea. Reason For Visit: SEPSIS Physical Exam Vital Signs: Temp Pulse Resp BP Pulse Ox 98.7 F 71 18 160/67 H 93 10/04/18 07:19 10/04/18 07:28 10/04/18 07:28 10/04/18 07:19 10/04/18 07:28 Intake & Output 10/03/18 10/04/18 10/05/18 06:59 06:59 06:59 Intake Total 8130 8190 Output Total 8000 7875 Balance 130 315 Weight 98.2 kg 96.7 kg General appearance: PRESENT: no acute distress, well-developed, well-nourished Head exam: PRESENT: normocephalic Respiratory exam: PRESENT: unlabored Extremities exam: ABSENT: pedal edema Musculoskeletal exam: PRESENT: normal inspection Neurological exam: PRESENT: alert, awake Psychiatric exam: PRESENT: appropriate affect Skin exam: PRESENT: normal color Results Laboratory Results: 10/03/18 06:08 10/03/18 06:08 09/23/18 09/23/18 09/23/18 10:00 10:00 21:10 Creatine Kinase 155 121 CK-MB (CK-2) 8.07 H Troponin I NT-Pro-B Natriuret Pep 09/23/18 09/23/18 09/24/18 21:10 21:10 03:15 Creatine Kinase 95 CK-MB (CK-2) 6.03 H Troponin I 0.079 NT-Pro-B Natriuret Pep 09/24/18 09/24/18 03:15 03:15 Creatine Kinase CK-MB (CK-2) 4.97 H Troponin I 0.083 NT-Pro-B Natriuret Pep 13390 H Impressions: Abdomen/Pelvis CT 10/01/18 00:00 IMPRESSION: Moderate ascites. Pleural effusions with right basilar possible developing pneumonia. Extensive thickening of the urinary bladder. KUB X-Ray 10/01/18 00:00 IMPRESSION: Grossly nonobstructive bowel gas pattern. Peritoneal dialysis catheter over the right lower quadrant Chest CT 10/02/18 00:00 IMPRESSION: 1. Bilateral emphysematous changes. Probable developing subpleural fibrosis in the right lower lobe. 2. Stable small right pleural effusion with right lower lobe atelectasis. There is fluid in the right major fissure as well. There is a small left effusion. 3. Small scattered mediastinal and prevascular lymph nodes most likely reactive. 4. Free fluid the abdomen stable from prior exam and consistent with fluid from peritoneal dialysis. Assessment & Plan - Diagnosis (1) Acute pyelonephritis Is this a current diagnosis for this admission?: Yes (2) Acute urinary retention Is this a current diagnosis for this admission?: Yes - Plan Summary Plan Summary: CT of C/A/P shows no tumors/masses suspicious for carcinoid. Chromogranin A is still pending, but 5-HIAA was negative. These episodes do no sound like Carcinoid and CTs are negative. Consider further evaluation for a hormone fluctuation of some type, but I am not sure what is causing these. I believe he should follow-up with urology on discharge for further treatment of the chronic UTIs and urinary retension. I will be happy to see him again in about 6 weeks in the office. OK with me to DC home. Please call me with any other concerns.
--- NOTE | 2018-10-04 10:38 | PDOC PROGRESS REPORT ---
Subjective Progress Note for:: 10/04/18 Subjective:: Mr. Giles is a very pleasant 67-year-old gentleman with end-stage renal disease on peritoneal dialysis sitting in the chair this morning no complaints. Patient states abdominal pain has subsided. Patient aware he will go downstairs for CT of the chest with IV contrast. Patient being followed by nephrology and oncology at this time. 10/03/2018-patient laying in bed this a.m. with no acute distress. Dr. Sabillon is in the room discussing results with patient. I had a discussion with Dr. Sabillon as well about the results of the patient's pending carcinoid syndrome studies. 10/04/2018-patient laying in bed no acute distress. Patient was seen this morning by Dr. Sabillon and Dr. Sams. We will continue peritoneal dialysis, Moraes catheter and awaiting ID. Reason For Visit: SEPSIS Physical Exam Vital Signs: Temp Pulse Resp BP Pulse Ox 98.7 F 74 18 160/67 H 93 10/04/18 07:19 10/04/18 08:00 10/04/18 07:28 10/04/18 08:00 10/04/18 07:28 Intake & Output 10/03/18 10/04/18 10/05/18 06:59 06:59 06:59 Intake Total 8130 8190 2500 Output Total 8000 7875 3000 Balance 130 315 -500 Weight 98.2 kg 96.7 kg 95.4 kg General appearance: PRESENT: no acute distress, well-developed, well-nourished Neck exam: ABSENT: carotid bruit, JVD, lymphadenopathy, thyromegaly Respiratory exam: PRESENT: clear to auscultation yair. ABSENT: rales, rhonchi, wheezes Cardiovascular exam: PRESENT: RRR. ABSENT: diastolic murmur, rubs, systolic murmur Pulses: PRESENT: normal dorsalis pedis pul Vascular exam: PRESENT: normal capillary refill GI/Abdominal exam: PRESENT: other - Dialysis catheter intact Extremities exam: PRESENT: full ROM. ABSENT: calf tenderness, clubbing, pedal edema Neurological exam: PRESENT: alert, awake, oriented to person, oriented to place, oriented to time, oriented to situation, CN II-XII grossly intact. ABSENT: motor sensory deficit Psychiatric exam: PRESENT: appropriate affect, depressed Skin exam: PRESENT: dry, intact, warm. ABSENT: cyanosis, rash Results Laboratory Results: 10/03/18 06:08 10/03/18 06:08 09/23/18 09/23/18 09/23/18 10:00 10:00 21:10 Creatine Kinase 155 121 CK-MB (CK-2) 8.07 H Troponin I NT-Pro-B Natriuret Pep 09/23/18 09/23/18 09/24/18 21:10 21:10 03:15 Creatine Kinase 95 CK-MB (CK-2) 6.03 H Troponin I 0.079 NT-Pro-B Natriuret Pep 09/24/18 09/24/18 03:15 03:15 Creatine Kinase CK-MB (CK-2) 4.97 H Troponin I 0.083 NT-Pro-B Natriuret Pep 07787 H Impressions: Abdomen/Pelvis CT 10/01/18 00:00 IMPRESSION: Moderate ascites. Pleural effusions with right basilar possible developing pneumonia. Extensive thickening of the urinary bladder. KUB X-Ray 10/01/18 00:00 IMPRESSION: Grossly nonobstructive bowel gas pattern. Peritoneal dialysis catheter over the right lower quadrant Chest CT 10/02/18 00:00 IMPRESSION: 1. Bilateral emphysematous changes. Probable developing subpleural fibrosis in the right lower lobe. 2. Stable small right pleural effusion with right lower lobe atelectasis. There is fluid in the right major fissure as well. There is a small left effusion. 3. Small scattered mediastinal and prevascular lymph nodes most likely reactive. 4. Free fluid the abdomen stable from prior exam and consistent with fluid from peritoneal dialysis. Assessment and Plan - Diagnosis (1) Severe sepsis Is this a current diagnosis for this admission?: Yes Plan: Continues to have cloudy urine and Moraes. We are still waiting recognized from ID. Will maintain plan of care as appropriate when ID makes recognitions. 10/02/2018-nephrology in agreement with leaving Moraes intact until patient is seen on an outpatient basis. No other changes to plan of care in regards to Moraes catheter at this time. 10/03/2018-continue to await recommendations from infectious disease as to antibiotic therapy for patient. We did repeat the current urine culture yesterday awaiting those results. 10/04/2018-improved. I will call infectious disease today for further input. (2) Carcinoid syndrome Is this a current diagnosis for this admission?: Yes Plan: Awaiting 24-hour urine for 5 H1 AA as well as rapid test. I did order a CT scan of abdomen pelvis with IV contrast per oncology recommendations. 10/02/2018-CT chest with IV contrast to rule out carcinoid syndrome. Awaiting 5 H1 AA test as well. We will continue to follow along with oncology and make changes plan of care based on recommendations. 10/03/2018-awaiting official results from CT chest with IV contrast. Did discuss this with Dr. Sabillon this a.m. 5 H1 AA test was negative. Dr. Sabillon thinks this may be something other than carcinoid syndrome at this time. Will await further recommendations per Dr. Sabillon 10/04/2018-most likely not carcinoid syndrome. Looking for other reasons for his episodes of sweating and shaking. (3) Acute urinary retention Is this a current diagnosis for this admission?: Yes Plan: Moraes remains in place. Patient will need urology follow-up 10/02/2018-no changes. Nephrology agrees with follow-up care by urology and leaving Moraes in place. 10/03/2018-no changes. Moraes remains intact 10/04/2018-maintain Moraes (4) Chronic renal failure, stage 5 Is this a current diagnosis for this admission?: Yes Plan: Patient remains on peritoneal dialysis. Nephrology is following patient. 10/02/2018-continue peritoneal dialysis especially given the fact patient has gotten IV contrast for CT abdomen pelvis and chest 10/03/2018-patient will have peritoneal dialysis this a.m. Will follow 10/04/2018-continue peritoneal dialysis (5) UTI (urinary tract infection) Qualifiers: Urinary tract infection type: site unspecified Hematuria presence: without hematuria Qualified Code(s): N39.0 - Urinary tract infection, site not specified Is this a current diagnosis for this admission?: Yes Plan: 09/23/2018-patient came in with lower abdominal pains unable to urinate urinalysis shows turbid colored urine positive for leukocyte esterase blood cultures urine cultures are requested started on antibiotics. 10/02/2018-urine culture shows Yady patient remains on Diflucan. Also urine remains cloudy and patient remains on Rocephin IV. We are awaiting final cultures to return to make final decision on plan of care. 10/03/2018-await urine culture. Continue IV Rocephin and Diflucan. 10/04/2018-urine remains slightly cloudy. I discussed with pharmacy we will initiate acetic acid irrigations twice a day. I suspect this might help with his chronic urinary tract infection. (6) Depression Is this a current diagnosis for this admission?: Yes Plan: 10/03/2018-discussed depression with nursing staff yesterday. Awaiting regulations from psychiatry. Patient on long-acting antidepressant I will add Abilify 2 mg p.o. daily and await further condition per psychiatry. 10/04/2018-somewhat improved today. We will continue Abilify - Time Time Spent with patient: 15-24 minutes - Inpatient Certification Medical Necessity: Other - Continues with IV Rocephin and nephrology consultation.
[2018-10-04] MEDS: ARIPIPRAZOLE 2 MG TABLET PO SCH (10:59)
[2018-10-04] MEDS: ASPIRIN 81 MG TABLET, CHEWABLE PO SCH (10:59)
[2018-10-04] MEDS: ESCITALOPRAM OXALATE 10 MG TABLET PO SCH (11:00)
[2018-10-04] MEDS: POTASSIUM CHLORIDE 10 MEQ CAPSULE.ER PO SCH (11:00)
[2018-10-04] MEDS: FINASTERIDE 5 MG TABLET PO SCH (11:00)
[2018-10-04] MEDS: ISOSORBIDE MONONITRATE 30 MG TAB.ER.24H PO SCH (11:01)
[2018-10-04] MEDS: GENTAMICIN SULFATE 0.1% CREAM 15 GM TP SCH (11:01)
[2018-10-04] MEDS: FOLIC ACID/VITAMIN B COMP W-C CAPSULE PO SCH (11:01)
--- NOTE | 2018-10-04 11:25 | PDOC PROGRESS REPORT ---
Subjective Progress Note for:: 10/04/18 Subjective:: Patient's clinical condition remains unchanged. He does not really have any new complaints. His peritoneal dialysis, so far doing well with total ultrafiltration of 150 but patient is not showing any signs of fluid overload. Patient continues to have cloudy urine with sediments. Reason For Visit: SEPSIS Physical Exam Vital Signs: Temp Pulse Resp BP Pulse Ox 98.7 F 74 18 160/67 H 93 10/04/18 07:19 10/04/18 08:00 10/04/18 07:28 10/04/18 08:00 10/04/18 07:28 Intake & Output 10/03/18 10/04/18 10/05/18 06:59 06:59 06:59 Intake Total 8130 8190 2500 Output Total 8000 7875 3000 Balance 130 315 -500 Weight 98.2 kg 96.7 kg 95.4 kg Exam: General appearance: PRESENT: no acute distress, cooperative, well-developed, well-nourished Head exam: PRESENT: atraumatic, normocephalic Eye exam: PRESENT: conjunctiva pink, PERRLA. ABSENT: scleral icterus Neck exam: ABSENT: JVD Respiratory exam: PRESENT: Normal breath sounds. ABSENT: crackles, rales, rhonchi, unlabored, wheezes Cardiovascular exam: PRESENT: Regular rate rhythm -+S1, +S2. ABSENT: diastolic murmur, systolic murmur GI/Abdominal exam: PRESENT: normal bowel sounds, soft. ABSENT: guarding, mass, tenderness Extremities exam: ABSENT: No edema Neurological exam: PRESENT: alert, awake, oriented to person, place and time. Skin exam: PRESENT: dry, warm, Cardiovascular exam: PRESENT: RRR, +S1, +S2. ABSENT: rubs GI/Abdominal exam: PRESENT: soft. ABSENT: tenderness Results Laboratory Results: 10/03/18 06:08 10/03/18 06:08 09/23/18 09/23/18 09/23/18 10:00 10:00 21:10 Creatine Kinase 155 121 CK-MB (CK-2) 8.07 H Troponin I NT-Pro-B Natriuret Pep 09/23/18 09/23/18 09/24/18 21:10 21:10 03:15 Creatine Kinase 95 CK-MB (CK-2) 6.03 H Troponin I 0.079 NT-Pro-B Natriuret Pep 09/24/18 09/24/18 03:15 03:15 Creatine Kinase CK-MB (CK-2) 4.97 H Troponin I 0.083 NT-Pro-B Natriuret Pep 43831 H Impressions: Abdomen/Pelvis CT 10/01/18 00:00 IMPRESSION: Moderate ascites. Pleural effusions with right basilar possible developing pneumonia. Extensive thickening of the urinary bladder. KUB X-Ray 10/01/18 00:00 IMPRESSION: Grossly nonobstructive bowel gas pattern. Peritoneal dialysis catheter over the right lower quadrant Chest CT 10/02/18 00:00 IMPRESSION: 1. Bilateral emphysematous changes. Probable developing subpleural fibrosis in the right lower lobe. 2. Stable small right pleural effusion with right lower lobe atelectasis. There is fluid in the right major fissure as well. There is a small left effusion. 3. Small scattered mediastinal and prevascular lymph nodes most likely reactive. 4. Free fluid the abdomen stable from prior exam and consistent with fluid from peritoneal dialysis. Assessment & Plan - Diagnosis (1) End-stage renal disease on peritoneal dialysis Is this a current diagnosis for this admission?: Yes Plan: Continue his regimen to use 2.5% PD solution for 3 exchanges and to use 4.25% on one exchange. He still has to use 1.5% if systolic blood pressures less than 110. Discussed with his nurse today. (2) UTI (urinary tract infection) Qualifiers: Urinary tract infection type: site unspecified Hematuria presence: without hematuria Qualified Code(s): N39.0 - Urinary tract infection, site not specified Is this a current diagnosis for this admission?: Yes Plan: Completed IV ceftriaxone. Awaiting ID recommendations as the patient urine remains to be cloudy despite antibiotics. Discussed with Dr. Ye check for need for possible bladder irrigation to clean out the bladder and hopefully help with the persistent cloudy and purulent urine sediment. (3) Hypotension Is this a current diagnosis for this admission?: Yes Plan: Improved. Slightly hypertensive today. May need additional blood pressure medications if continues to be elevated. (4) Anemia in chronic kidney disease Is this a current diagnosis for this admission?: Yes Plan: Patient received Procrit of 20,000 units subcutaneously on September 26 and October 03 and a dose of IV Injectafer on Pricila 5. We will give the second dose of IV Injectafer today. (5) Hypokalemia Is this a current diagnosis for this admission?: Yes Plan: Currently controlled. Continue potassium chloride to 40 mEq p.o. daily. (6) Acute urinary retention Is this a current diagnosis for this admission?: Yes Plan: Agree with indwelling Moraes catheter as the patient does not want to do intermittent catheterization at home. Advised patient that he would need to see a urologist after discharge. (7) Diabetes mellitus type 2 in obese Is this a current diagnosis for this admission?: Yes (8) Abnormal flushing and sweating Is this a current diagnosis for this admission?: Yes Plan: Patient was worked up for carcinoid syndrome. Oncology on board. Overall imp ression was the patient unlikely to have carcinoid syndrome although some tests are still pending. Needs to check for some other hormonal issues. - Notes Notes: Plan discussed with Dr. Ye. From nephrology standpoint if the patient remains stable and ID does not recommend any further treatment I think patient can be discharged home. Recommend to set up the patient with urology appointment following discharge. Upon discharge we will follow the patient and his regular dialysis visit at [facility]. - Time Time with patient: 15-25 minutes
[2018-10-04] MEDS: ACETAMINOPHEN 325 MG TABLET PO PRN ×2 (19:36→19:53)
[2018-10-04] MEDS: INSULIN GLARGINE,HUM.REC.ANLOG 1,000 UNIT/10 ML VIAL SUBCUT SCH (21:57)
[2018-10-05 06:17] LABS: HEMOGLOBIN 8.5 g/dL (13.5-17.0); MEAN CORPUSCULAR HEMOGLOBIN 31.6 pg (27.0-33.4); MEAN CORPUSCULAR HGB CONC 32.7 g/dL (32.0-36.0); MEAN CORPUSCULAR VOLUME 97 fl (80-97); PLATELET COUNT 296 10^3/uL (150-450); RED BLOOD COUNT 2.69 10^6/uL (4.35-5.55); RED CELL DISTRIBUTION WIDTH 18.1 % (11.5-14.0); WHITE BLOOD COUNT 7.8 10^3/uL (4.0-10.5)
[2018-10-05] MEDS: HEPARIN SOD (PORCINE) 5,000 UNIT/ML 1 ML SYRINGE SUBCUT SCH (06:17)
[2018-10-05] MEDS: PANTOPRAZOLE SODIUM 40 MG TABLET.DR PO SCH (06:17)
[2018-10-05 06:48] LABS: ANION GAP 9 (5-19); BLOOD UREA NITROGEN 32 mg/dL (7-20); CARBON DIOXIDE 28 mmol/L (22-30); CHLORIDE 100 mmol/L (98-107); GLUCOSE 227 mg/dL (75-110); POTASSIUM 4.2 mmol/L (3.6-5.0); SODIUM 137.1 mmol/L (137-145)
[2018-10-05] MEDS: IPRATROPIUM/ALBUTEROL 0.5-2.5 MG/3 ML AMPUL NEB SCH ×2 (08:18→12:27)
--- NOTE | 2018-10-05 08:22 | Progress Note Acknowledgement ---
Progress Note Acknowledgement Progess Note Acknowledgement: I, the undersigned member of the medical staff with appropriate privileges and with supervisory authority over Mack Scanlon, a [facility] practice allied health professional, acknowledge that I have reviewed the progress notes entered on this patient, and in my professional judgment believe that the assessment made and/or any care evidenced was appropriate
--- NOTE | 2018-10-05 08:28 | PDOC DISCHARGE SUMMARY ---
General - Admit/Disc Date/PCP Admission Date/Primary Care Provider: 09/23/18 17:28 [facility] Discharge Date: 10/05/18 - Discharge Diagnosis (1) Severe sepsis Is this a current diagnosis for this admission?: Yes (2) Carcinoid syndrome Is this a current diagnosis for this admission?: Yes (3) Acute urinary retention Is this a current diagnosis for this admission?: Yes (4) Chronic renal failure, stage 5 Is this a current diagnosis for this admission?: Yes (5) UTI (urinary tract infection) Is this a current diagnosis for this admission?: Yes (6) Depression Is this a current diagnosis for this admission?: Yes - Additional Information Resuscitation Status: Full Code Discharge Activity: Activity As Tolerated Prescriptions: Aripiprazole [Abilify 2 mg Tablet] 2 mg PO DAILY #30 tablet Home Medications: Atorvastatin Calcium [Lipitor 80 mg Tablet] 80 mg PO QHS 04/23/18 Carvedilol [Coreg 12.5 mg Tablet] 12.5 mg PO Q12 04/23/18 Escitalopram Oxalate [Lexapro 10 mg Tablet] 10 mg PO DAILY 04/23/18 Finasteride [Proscar 5 mg Tablet] 5 mg PO DAILY 04/23/18 Folic Acid/Vitamin B Comp W-C [Renal Multivitamin Tablet] 1 tab PO DAILY 04/23/18 Insulin Glargine,Hum.rec.anlog [Lantus (Pyxis) Insulin 100 Unit/1 ml 10 ml] 80 unit SUBCUT QHS 04/23/18 Isosorbide Mononitrate [Imdur 30 mg Tablet.er] 30 mg PO DAILY 04/23/18 Terazosin HCl [Hytrin] 2 mg PO QHS 04/23/18 Famotidine [Pepcid 20 mg Tablet] 20 mg PO QHS 08/08/18 Ipratropium/Albuterol Sulfate [Duoneb 3 ml Ampul] 1 vial NEB QID 08/08/18 Aspirin [Aspirin 81 mg Chewable Tablet] 81 mg PO DAILY 09/23/18 Bisacodyl [Dulcolax 5 mg Tablet] 5 mg PO ASDIR PRN 09/23/18 Omeprazole 20 mg PO DAILY 09/23/18 Aripiprazole [Abilify 2 mg Tablet] 2 mg PO DAILY #30 tablet 10/05/18 History of Present Illness History of Present Illness: CELIO WAGNER is a 67 year old male with a long-standing history of end-stage renal disease on peritoneal dialysis, congestive heart failure, coronary artery disease, RI with stent placement, hypertension, hyperlipidemia, COPD with history of respiratory failure, type 2 diabetes mellitus, BPH, diverticulitis, and depression. Patient presented to the ER on 09/23/2018 with complaints of being unable to urinate since the day before. He is on peritoneal dialysis but usually urinates very little but the day before he was unable to urinate at all. He was having lower abdominal pains at that time as well as some low blood pressure. Patient was found to have acute urinary retention with Moraes catheter placed. Moraes cath was removed and eventually the patient continued to have this urinary retention and Moraes was placed permanently until patient be seen by urology on outpatient basis. Patient was continued on his peritoneal dialysis, patient did have turbid colored urine after Moraes catheter was placed and patient was placed on antibiotics at that time. Patient had 2 separate urine cultures both of which have shown Yady. I discussed this with pharmacy and she believes it not to be pathogenic. Patient also has chronic anemia secondary to his end-stage renal disease. Patient is a diabetic for which he takes diabetic medications. Patient is morbidly obese but he also is blind and has decreased mobility. Patient also has a history of congestive heart failure although he was not in heart failure on this admission. Patient has improved sufficiently return home at this time. Patient as stated for had 2 urine cultures were negative for pathogens other than Yady. Patient's had no white count for the last 4 to 5 days. Patient has no fever. It is assumed that patient has no UTI at this time he does have his Moraes catheter in place which is showing some sediment in the urine but the urine is clearing out. I have placed patient on acetic acid flushes 50 mL's twice daily in hopes that this will help stop the cloudiness as well as improved patient's chronic UTIs. Hospital Course Hospital Course: CELIO WAGNER is a 67 year old male with a long-standing history of end-stage renal disease on peritoneal dialysis, congestive heart failure, coronary artery disease, RI with stent placement, hypertension, hyperlipidemia, COPD with history of respiratory failure, type 2 diabetes mellitus, BPH, diverticulitis, and depression. Patient presented to the ER on 09/23/2018 with complaints of being unable to urinate since the day before. He is on peritoneal dialysis but usually urinates very little but the day before he was unable to urinate at all. He was having lower abdominal pains at that time as well as some low blood pressure. Patient was found to have acute urinary retention with Moraes catheter placed. Moraes cath was removed and eventually the patient continued to have thi s urinary retention and Moraes was placed permanently until patient be seen by urology on outpatient basis. Patient was continued on his peritoneal dialysis, patient did have turbid colored urine after Moraes catheter was placed and patient was placed on antibiotics at that time. Patient had 2 separate urine cultures both of which have shown Yady. I discussed this with pharmacy and she believes it not to be pathogenic. Patient also has chronic anemia secondary to his end-stage renal disease. Patient is a diabetic for which he takes diabetic medications. Patient is morbidly obese but he also is blind and has decreased mobility. Patient also has a history of congestive heart failure al though he was not in heart failure on this admission. Patient has improved sufficiently return home at this time. Patient as stated for had 2 urine cultures were negative for pathogens other than Yady. Patient's had no white count for the last 4 to 5 days. Patient has no fever. It is assumed that patient has no UTI at this time he does have his Moraes catheter in place which is showing some sediment in the urine but the urine is clearing out. I have placed patient on acetic acid flushes 50 mL's twice daily in hopes that this will help stop the cloudiness as well as improved patient's chronic UTIs. Physical Exam Vital Signs: Temp Pulse Resp BP Pulse Ox 97.7 F 64 18 125/72 95 10/05/18 02:45 10/05/18 02:45 10/05/18 02:45 10/05/18 02:45 10/05/18 02:45 Intake & Output 10/04/18 10/05/18 10/06/18 06:59 06:59 06:59 Intake Total 8190 86675 Output Total 7879 65552 Balance 315 -323 Weight 96.7 kg 97.3 kg General appearance: PRESENT: no acute distress, well-developed, well-nourished Neck exam: ABSENT: carotid bruit, JVD, lymphadenopathy, thyromegaly Respiratory exam: PRESENT: clear to auscultation yair. ABSENT: rales, rhonchi, wheezes Cardiovascular exam: PRESENT: RRR. ABSENT: diastolic murmur, rubs, systolic murmur Pulses: PRESENT: normal dorsalis pedis pul Vascular exam: PRESENT: normal capillary refill GI/Abdominal exam: PRESENT: other - Peritoneal dialysis catheter in place with no signs of infection Extremities exam: PRESENT: full ROM. ABSENT: calf tenderness, clubbing, pedal edema Neurological exam: PRESENT: alert, awake, oriented to person, oriented to place, oriented to time, oriented to situation, CN II-XII grossly intact. ABSENT: motor sensory deficit Psychiatric exam: PRESENT: appropriate affect, normal mood. ABSENT: homicidal ideation, suicidal ideation Skin exam: PRESENT: dry, intact, warm. ABSENT: cyanosis, rash Results Laboratory Results: 10/05/18 06:00 10/05/18 06:00 10/05/18 10/05/18 06:00 06:00 WBC 7.8 RBC 2.69 L Hgb 8.5 L Hct 26.0 L MCV 97 MCH 31.6 MCHC 32.7 RDW 18.1 H Plt Count 296 Sodium 137.1 Potassium 4.2 Chloride 100 Carbon Dioxide 28 Anion Gap 9 BUN 32 H Creatinine 6.39 H Est GFR ( Amer) 11 L Est GFR (Non-Af Amer) 9 L Glucose 227 H Calcium 8.0 L 10/02/18 14:45 Catheterized Urine Urine Culture - Final C.albicans/C.dubliniensis 09/23/18 09/23/18 09/23/18 10:00 10:00 21:10 Creatine Kinase 155 121 CK-MB (CK-2) 8.07 H Troponin I NT-Pro-B Natriuret Pep 09/23/18 09/23/18 09/24/18 21:10 21:10 03:15 Creatine Kinase 95 CK-MB (CK-2) 6.03 H Troponin I 0.079 NT-Pro-B Natriuret Pep 09/24/18 09/24/18 03:15 03:15 Creatine Kinase CK-MB (CK-2) 4.97 H Troponin I 0.083 NT-Pro-B Natriuret Pep 21795 H Impressions: Abdomen/Pelvis CT 10/01/18 00:00 IMPRESSION: Moderate ascites. Pleural effusions with right basilar possible developing pneumonia. Extensive thickening of the urinary bladder. KUB X-Ray 10/01/18 00:00 IMPRESSION: Grossly nonobstructive bowel gas pattern. Peritoneal dialysis catheter over the right lower quadrant Chest CT 10/02/18 00:00 IMPRESSION: 1. Bilateral emphysematous changes. Probable developing subpleural fibrosis in the right lower lobe. 2. Stable small right pleural effusion with right lower lobe atelectasis. There is fluid in the right major fissure as well. There is a small left effusion. 3. Small scattered mediastinal and prevascular lymph nodes most likely reactive. 4. Free fluid the abdomen stable from prior exam and consistent with fluid from peritoneal dialysis. Qualifiers - * PATIENT BEING DISCHARGED WITH ANY OF THE FOLLOWING DIAGNOSIS: No Acute Heart Failure - Is this a Heart Failure Patient?: No Plan Time Spent: Greater than 30 Minutes
[2018-10-05 08:44] VITALS: BP 137/103
[2018-10-05] MEDS: INSULIN LISPRO 100 UNIT/ML 3 ML VIAL SUBCUT SCH (08:50)
[2018-10-05] MEDS: ESCITALOPRAM OXALATE 10 MG TABLET PO SCH (10:35)
[2018-10-05] MEDS: FOLIC ACID/VITAMIN B COMP W-C CAPSULE PO SCH (10:35)
[2018-10-05] MEDS: POTASSIUM CHLORIDE 10 MEQ CAPSULE.ER PO SCH (10:35)
[2018-10-05] MEDS: FINASTERIDE 5 MG TABLET PO SCH (10:35)
[2018-10-05] MEDS: ASPIRIN 81 MG TABLET, CHEWABLE PO SCH (10:35)
[2018-10-05] MEDS: ISOSORBIDE MONONITRATE 30 MG TAB.ER.24H PO SCH (10:36)
[2018-10-05] MEDS: ARIPIPRAZOLE 2 MG TABLET PO SCH (10:36)
[2018-10-05] MEDS: CARVEDILOL 12.5 MG TABLET PO SCH (10:36)
[2018-10-05] MEDS: GENTAMICIN SULFATE 0.1% CREAM 15 GM TP SCH (10:36)
== END 2018-10-05 12:39 | disposition home or self-care (01) | DRG 871 ==
LOC: ER 09:47 → EH 17:28 → 3S 21:38
PROVIDERS: ADMIT Internal Medicine; ATTEND Internal Medicine
DX: A41.9 Sepsis, unspecified organism (principal); N18.6 End stage renal disease; I13.2 Hypertensive heart and chronic kidney disease with heart failure and with stage 5 chronic kidney disease, or end stage renal disease; I50.30 Unspecified diastolic (congestive) heart failure; B37.49 Other urogenital candidiasis; N40.1 Benign prostatic hyperplasia with lower urinary tract symptoms; R65.20 Severe sepsis without septic shock; R33.8 Other retention of urine; J44.9 Chronic obstructive pulmonary disease, unspecified; I25.2 Old myocardial infarction; I25.10 Atherosclerotic heart disease of native coronary artery without angina pectoris; E78.5 Hyperlipidemia, unspecified; E11.22 Type 2 diabetes mellitus with diabetic chronic kidney disease; Z99.2 Dependence on renal dialysis; K57.90 Diverticulosis of intestine, part unspecified, without perforation or abscess without bleeding; F32.9 Major depressive disorder, single episode, unspecified; Z95.5 Presence of coronary angioplasty implant and graft; D63.1 Anemia in chronic kidney disease; Z79.4 Long term (current) use of insulin; I27.20 Pulmonary hypertension, unspecified; E11.40 Type 2 diabetes mellitus with diabetic neuropathy, unspecified; E11.21 Type 2 diabetes mellitus with diabetic nephropathy; E11.621 Type 2 diabetes mellitus with foot ulcer; E11.319 Type 2 diabetes mellitus with unspecified diabetic retinopathy without macular edema; F17.200 Nicotine dependence, unspecified, uncomplicated; E87.6 Hypokalemia; E66.01 Morbid (severe) obesity due to excess calories; H54.7 Unspecified visual loss; Z68.32 Body mass index [BMI] 32.0-32.9, adult
CPT/HCPCS: 36415; 51701; 71260; 74018; 74176; 74177; 80048; 80053; 80061; 81001; 82550; 82553; 82607; 82728; 82746; 82962; 83036; 83497; 83540; 83550; 83605; 83735; 83880; 84100; 84443; 84484; 85025; 85027; 85045; 85610; 85730; 86316; 87040; 87070; 87075; 87086; 87205; 89050; 90945; 90947; 93005; 93010; 99291; C1758; J0610; J0696; J1439; J1644; J1815; J2270; J2543; J3370; J3490; J7050; J7060; J7620; Q5106

== ENCOUNTER 2018-10-08 18:45 | Inpatient (IN) | payer OTHER, MEDICARE ==
[~2018-10-08 18:45] MED LIST: MAGNESIUM OXIDE 400 MG TABLET PO ONE
--- NOTE | 2018-10-08 19:36 | RADIOLOGY REPORT (SQ) ---
EXAM DESCRIPTION: HIP LEFT AP/LATERAL COMPLETED DATE/TIME: 10/08/2018 7:24 pm REASON FOR STUDY: Fall; unable to bear weight COMPARISON: None. NUMBER OF VIEWS: Two views. TECHNIQUE: AP pelvis and additional frog-leg view of the left hip. LIMITATIONS: None. FINDINGS: MINERALIZATION: Osteopenia. PRIMARY HIP: No fracture or dislocation. No worrisome bone lesions. OPPOSITE HIP: No fracture or dislocation. No worrisome bone lesions. PUBIS AND ISCHIUM: No fracture. PELVIS: No fracture. SACRUM: No fracture or dislocation. No worrisome bone lesions. LOWER LUMBAR SPINE: No fracture or dislocation. No worrisome bone lesions. No significant disc disea se. SOFT TISSUES: No findings. OTHER: No other significant finding. IMPRESSION: No fracture identified. TECHNICAL DOCUMENTATION: JOB ID: [id number] [place]-72 2010 [employer]- All Rights Reserved Reading location - IP/workstation name: [employer]
[2018-10-08] MEDS ORDERED: MORPHINE SULFATE 10 MG/ML INJ IV ONE (19:51)
[2018-10-08] MEDS ORDERED: DIPH/PERTUSS(ACELL)/TETANUS VAC/PF 0.5 ML SYR (>=10YO) IM ONE (19:52)
--- NOTE | 2018-10-08 19:56 | ER Document Report ---
ED General - General Chief Complaint: Hip Injury Stated Complaint: FALL/HIP PAIN Time Seen by Provider: 10/08/18 19:45 TRAVEL OUTSIDE OF THE [place] IN LAST 30 DAYS: No - HPI Notes: Patient is a 67-year-old male that presents to the emergency department for chief complaint of left hip pain. Patient reports he was walking on his deck at about 330 this afternoon and lost his balance falling on his left side. He states he did not hit his head or lose consciousness. He denied feeling dizzy or lightheaded. Patient was able to stand up but has been unable to put any weight on his left hip. He states the pain is lateral on the left hip and does not radiate. It is worse with any kind of movement. He denies lower extremity numbness or weakness. Past Medical History: COPD, CHF, diabetes, hyperlipidemia, hypertension, peritoneal dialysis Past Surgical History: Peritoneal dialysis catheter Social History: Reviewed in chart Family History: Reviewed and noncontributory for presenting illness Allergies: Reviewed, see documented allergy list. REVIEW OF SYSTEMS: CONSTITUTIONAL : No fever No chills No diaphoresis No recent illness EENT: No vision changes No congestion No sore throat CARDIOVASCULAR: No chest pain No palpitations RESPIRATORY: No shortness of breath No cough No difficulty breathing GASTROINTESTINAL: No abdominal pain No nausea No vomiting No diarrhea GENITOURINARY: No dysuria No hematuria No difficulty urinating MUSCULOSKELETAL: No back pain Left hip pain No arm pain SKIN: No rashes No lesions LYMPHATIC: No swollen, enlarged glands. NEUROLOGICAL: No lightheadedness No headache No weakness No paresthesias PSYCHIATRIC: No anxiety No depression PHYSICAL EXAMINATION: Vital signs reviewed, nursing noted reviewed. GENERAL: Well-appearing, well-nourished and in no acute distress. HEAD: Atraumatic, normocephalic. EYES: Eyes appear normal, extraocular movements intact, sclera anicteric, conjunctiva are normal. ENT: nares patent, oropharynx clear without exudates. Moist mucous membranes. NECK: No midline cervical spine tenderness. Normal range of motion, supple without lymphadenopathy LUNGS: Breath sounds clear to auscultation bilaterally and equal. No wheezes rales or rhonchi. HEART: Regular rate and rhythm without murmurs ABDOMEN: PD catheter left lower abdomen ostomy clean dry intact, soft, nontender , normoactive bowel sounds. No rebound, guarding, or rigidity. No masses appreciated. EXTREMITIES: Decreased range of motion of the left hip with tenderness laterally over the greater trochanter. Pain with logroll in the left hip. Normal left knee and ankle exam. No bony tenderness to the left elbow with normal range of motion. No pitting or edema. NEUROLOGICAL: No focal neurological deficits. Moves all extremities spontaneously Motor and sensory grossly intact on exam. PSYCH: Normal mood, normal affect. SKIN: Warm, Dry, normal turgor, large left elbow skin tear with bleeding control led - Related Data Allergies/Adverse Reactions: No Known Allergies Allergy (Verified 09/23/18 09:48) Past Medical History - Social History Smoking Status: Never Smoker Family History: CAD, DM, Hypertension Patient has suicidal ideation: No Patient has homicidal ideation: No - Past Medical History Cardiac Medical History: Reports: Hx Congestive Heart Failure, Hx Coronary Artery Disease, Hx Heart Attack - Twice with stents placed, Hx Hypercholesterolemia, Hx Hypertension Denies: Hx Atrial Fibrillation, Hx DVT, Hx Pulmonary Embolism Pulmonary Medical History: Reports: Hx COPD, Hx Respiratory Failure Denies: Hx Asthma Neurological Medical History: Denies: Hx Seizures Endocrine Medical History: Reports: Hx Diabetes Mellitus Type 2. Denies: Hx Diabetes Mellitus Type 1, Hx Hyperthyroidism, Hx Hypothyroidism Renal/ Medical History: Reports: Hx Benign Prostatic Hyperplasia, Hx End Stage Renal Disease, Hx Peritoneal Dialysis GI Medical History: Reports: Hx Diverticulitis. Denies: Hx Cirrhosis, Hx Hepatitis Musculoskeletal Medical History: Denies Hx Arthritis, Denies Hx Gout Skin Medical History: Denies Hx Eczema, Denies Hx Psoriasis Psychiatric Medical History: Reports: Hx Depression Infectious Medical History: Reports: Hx C-Diff. Denies: Hx Hepatitis Past Surgical History: Reports: Hx Abdominal Surgery - meckels diverticulum, Hx Cardiac Catheterization, Hx Coronary Stent - X2, Other - Small bowel resection; adhesion lysis; peritoneal dialysis access Physical Exam - Vital signs Vitals: Temp BP 98.4 F 110/57 L 10/08/18 18:53 10/08/18 18:53 Course - Re-evaluation Re-evalutation: 10/08/18 19:54 Vitals reviewed. Nursing notes reviewed. Patient is unsure of his last tetanus vaccine and that has been updated today. His skin tear on the left elbow was cleaned and dressed by nursing care. There is no suturable skin to repair on his elbow. He has no bony tenderness in the left elbow and has normal range of motion without deformity, I do not suspect left elbow fracture. Patient's x-ray shows no acute fracture however he is unable to lift his left leg off the table and has exquisite pain with any movement, I suspect occult left hip fracture and CT scan has been ordered. Patient received 75 mcg of fentanyl by EMS prior to arrival and states that feels like it has worn off but was initially helping. He was given morphine for further pain control. 10/08/18 21:16 On reevaluation patient states his pain has improved. CT scan shows a no ndisplaced left intertrochanteric hip fracture. His care was discussed with Dr. Pugh who will follow on consultation. Patient has multiple medical issues and will be admitted to the hospitalist service. Care discussed with Dr. Arroyo who accepts admission. I have paged Dr. Sams who is patient's associate account director for peritoneal dialysis management. Patient and family in agreement with plan of care. Preop blood work and EKG have been ordered Hip X-Ray 10/08/18 00:00 IMPRESSION: No fracture identified. Lower Extremity CT 10/08/18 19:50 IMPRESSION: Acute nondisplaced left femoral intertrochanteric fracture. - Vital Signs Vital signs: Temp Pulse Resp BP Pulse Ox 98.4 F 21 H 120/61 97 10/08/18 18:53 10/08/18 22:01 10/08/18 22:01 10/08/18 22:01 - Laboratory Result Diagrams: 10/08/18 21:30 10/08/18 21:30 - EKG Interpretation by Me Additional EKG results interpreted by me: 10/08/18 21:43 Interpreted by myself [id number]: Normal sinus rhythm, rate 76, borderline left axis, borderline QT prolongation with QTC of 477 Discharge - Discharge Clinical Impression: Nondisplaced intertrochanteric fracture of femur Qualifiers: Encounter type: initial encounter Fracture type: closed Laterality: left Qualified Code(s): S72.145A - Nondisplaced intertrochanteric fracture of left femur, initial encounter for closed fracture Condition: Stable Disposition: ADMITTED INPATIENT Admitting Provider: Cruz (Hospitalist) Unit Admitted: Medical Floor
--- NOTE | 2018-10-08 20:50 | RADIOLOGY REPORT (SQ) ---
CT LOWER EXTREMITY WITHOUT IV CONTRAST EXAM DATE: 10/08/2018 7:50 PM CDT HISTORY: Trauma. Hip pain. COMPARISON: Radiographs from earlier the same day. TECHNIQUE: CT scan of the left hip without IV contrast. This exam was performed according to our departmental dose-optimization program, which includes automated exposure control, adjustment of the mA and/or kV according to patient size and/or use of iterative reconstruction technique. FINDINGS: There is an acute nondisplaced fracture of the proximal left femur involving the intertrochanteric region. No hip joint dislocation. The muscles and tendons of the left hip are grossly intact. There is a moderate amount of intrapelvic ascites with a Moraes catheter noted. IMPRESSION: Acute nondisplaced left femoral intertrochanteric fracture.
[2018-10-08] MEDS ORDERED: MAGNESIUM HYDROXIDE SUSP 30 ML UDCUP PO PRN (21:17)
[2018-10-08] MEDS ORDERED: ACETAMINOPHEN 325 MG TABLET PO PRN (21:17)
[2018-10-08] MEDS ORDERED: IPRATROPIUM/ALBUTEROL 0.5-2.5 MG/3 ML AMPUL NEB PRN (21:17)
[2018-10-08] MEDS ORDERED: DEXTROSE 40% GEL 15 GM TUBE PO PRN ×2 (21:17)
[2018-10-08] MEDS ORDERED: GLUCAGON,HUMAN RECOMB 1 MG INJ IM PRN (21:17)
[2018-10-08] MEDS ORDERED: DEXTROSE 50%-WATER 25 GM/50 ML DISP.SYRIN IV PRN ×2 (21:17)
[2018-10-08] MEDS ORDERED: FENTANYL CITRATE INJ/PF 100 MCG/2 ML AMPUL IV PRN (21:20)
[2018-10-08 22:01] LABS: ABSOLUTE BASOPHILS # (AUTO) 0.2 10^3/uL (0.0-0.2); ABSOLUTE EOSINOPHILS # (AUTO) 0.3 10^3/uL (0.0-0.6); ABSOLUTE LYMPHOCYTES (AUTO) 1.3 10^3/uL (0.5-4.7); ABSOLUTE MONOCYTES (AUTO) 1.2 10^3/uL (0.1-1.4); ABSOLUTE NEUT (AUTO) 11.4 10^3/uL (1.7-8.2); BASOPHILS % (AUTO) 1.3 % (0-2); EOSINOPHILS % (AUTO) 1.9 % (0-6); HEMATOCRIT 36.8 % (37.9-51.0); HEMOGLOBIN 11.7 g/dL (13.5-17.0); LYMPHOCYTES % (AUTO) 8.9 % (13-45); MEAN CORPUSCULAR HEMOGLOBIN 31.5 pg (27.0-33.4); MEAN CORPUSCULAR HGB CONC 31.7 g/dL (32.0-36.0); MEAN CORPUSCULAR VOLUME 99 fl (80-97); MONOCYTES % (AUTO) 8.6 % (3-13); PLATELET COUNT 341 10^3/uL (150-450); RED BLOOD COUNT 3.71 10^6/uL (4.35-5.55); RED CELL DISTRIBUTION WIDTH 18.8 % (11.5-14.0); SEGMENTED NEUTROPHILS % (AUTO) 79.3 % (42-78); TOTAL CELLS COUNTED % (AUTO) 100 %; WHITE BLOOD COUNT 14.4 10^3/uL (4.0-10.5)
[2018-10-08 22:04] LABS: ANION GAP 16 (5-19); BLOOD UREA NITROGEN 29 mg/dL (7-20); CALCIUM 8.3 mg/dL (8.4-10.2); CARBON DIOXIDE 21 mmol/L (22-30); CHLORIDE 102 mmol/L (98-107); GLUCOSE 116 mg/dL (75-110); POTASSIUM 4.3 mmol/L (3.6-5.0)
[2018-10-08 22:16] LABS: CREATINE KINASE MB 3.98 ng/mL (<4.55); TROPONIN I 0.031 ng/mL
[2018-10-08] MEDS: HEPARIN SOD (PORCINE) 5,000 UNIT/ML 1 ML VIAL SUBCUT SCH (22:42)
--- NOTE | 2018-10-08 23:42 | PDOC H&P ---
History of Present Illness Admission Date/PCP: 10/08/18 21:[facility] Patient complains of: Left hip pain History of Present Illness: CELIO WAGNER is a 67 year old male with a past medical history of congestive heart failure, coronary artery disease, COPD, diabetes, hypertension, blindness and end-stage renal failure on peritoneal dialysis. He presents shortly after losing his balance while walking falling to his left side resulting in injury. He denies chest pain, shortness of breath, palpitations or loss of consciousness, no additional injury or seizure-like activity,. He was unable to bear weight prompting evaluation emergency room is found to have a left-sided hip fracture and referred to the hospitalist for admission. Patient is comfortable lying flat, denies chest pain, shortness of breath, headache, recent fallsand is otherwise felt well. He does admit recently starting Abilify. Past Medical History Cardiac Medical History: Reports: Congestive Heart Failure, Coronary Artery Disease, Myocardial Infarction - Twice with stents placed, Hyperlipidema, Hypertension Denies: Atrial Fibrillation, DVT, Pulmonary Embolism Pulmonary Medical History: Reports: Chronic Obstructive Pulmonary Disease (COPD), Respiratory Failure Denies: Asthma Neurological Medical History: Denies: Seizures Endocrine Medical History: Reports: Diabetes Mellitus Type 2 Denies: Diabetes Mellitus Type 1, Hyperthyroidism, Hypothyroidism Renal/ Medical History: Reports: End Stage Renal Disease GI Medical History: Reports: Diverticulitis Denies: Cirrhosis, Hepatitis Musculoskeltal Medical History: Denies: Arthritis, Gout Skin Medical History: Denies: Eczema, Psoriasis Psychiatric Medical History: Reports: Depression Hematology: Reports: Anemia Denies: Bleeding Tendencies Infectious Medical History: Reports: Clostridium Difficile Past Surgical History Past Surgical History: Reports: Cardiac Catheterization, Coronary Stent - X2, Other - Small bowel resection; adhesion lysis; peritoneal dialysis access Social History Information Source: Patient, [facility] Records Smoking Status: Never Smoker Frequency of Alcohol Use: None Hx Recreational Drug Use: No Drugs: None Hx Prescription Drug Abuse: No - Advance Directive Resuscitation Status: Full Code Family History Family History: CAD, DM, Hypertension Parental Family History Reviewed: Yes Children Family History Reviewed: Yes Sibling(s) Family History Reviewed.: Yes Medication/Allergy Home Medications: Atorvastatin Calcium [Lipitor 80 mg Tablet] 80 mg PO QHS 04/23/18 Carvedilol [Coreg 12.5 mg Tablet] 12.5 mg PO Q12 04/23/18 Escitalopram Oxalate [Lexapro 10 mg Tablet] 10 mg PO DAILY 04/23/18 Finasteride [Proscar 5 mg Tablet] 5 mg PO DAILY 04/23/18 Folic Acid/Vitamin B Comp W-C [Renal Multivitamin Tablet] 1 tab PO DAILY 04/23/18 Insulin Glargine,Hum.rec.anlog [Lantus (Pyxis) Insulin 100 Unit/1 ml 10 ml] 80 unit SUBCUT QHS 04/23/18 Isosorbide Mononitrate [Imdur 30 mg Tablet.er] 30 mg PO DAILY 04/23/18 Terazosin HCl [Hytrin] 2 mg PO QHS 04/23/18 Famotidine [Pepcid 20 mg Tablet] 20 mg PO QHS 08/08/18 Ipratropium/Albuterol Sulfate [Duoneb 3 ml Ampul] 1 vial NEB QID 08/08/18 Aspirin [Aspirin 81 mg Chewable Tablet] 81 mg PO DAILY 09/23/18 Bisacodyl [Dulcolax 5 mg Tablet] 5 mg PO ASDIR PRN 09/23/18 Omeprazole 20 mg PO DAILY 09/23/18 Aripiprazole [Abilify 2 mg Tablet] 2 mg PO DAILY #30 tablet 10/05/18 Allergies/Adverse Reactions: No Known Allergies Allergy (Verified 09/23/18 09:48) Review of Systems Constitutional: ABSENT: chills, fever(s), headache(s), weight gain, weight loss Eyes: ABSENT: visual disturbances Ears: ABSENT: hearing changes Cardiovascular: ABSENT: chest pain, dyspnea on exertion, edema, orthropnea, palpitations Respiratory: ABSENT: cough, hemoptysis Gastrointestinal: ABSENT: abdominal pain, constipation, diarrhea, hematemesis, hematochezia, nausea, vomiting Genitourinary: ABSENT: dysuria, hematuria Musculoskeletal: ABSENT: joint swelling Integumentary: ABSENT: rash, wounds Neurological: ABSENT: abnormal gait, abnormal speech, confusion, dizziness, focal weakness, syncope Psychiatric: ABSENT: anxiety, depression, homidical ideation, suicidal ideation Endocrine: ABSENT: cold intolerance, heat intolerance, polydipsia, polyuria Hematologic/Lymphatic: ABSENT: easy bleeding, easy bruising Physical Exam Vital Signs: Temp Pulse Resp BP Pulse Ox 98.4 F 21 H 120/61 97 10/08/18 18:53 10/08/18 22:01 10/08/18 22:01 10/08/18 22:01 Intake & Output 10/07/18 10/08/18 10/09/18 11:59 11:59 11:59 Weight 88.2 kg General appearance: PRESENT: no acute distress, well-developed, well-nourished Head exam: PRESENT: atraumatic, normocephalic Eye exam: PRESENT: conjunctiva pink, EOMI, PERRLA. ABSENT: scleral icterus Ear exam: PRESENT: normal external ear exam Mouth exam: PRESENT: moist, tongue midline Neck exam: ABSENT: carotid bruit, JVD, lymphadenopathy, thyromegaly Respiratory exam: PRESENT: clear to auscultation yair. ABSENT: rales, rhonchi, wheezes Cardiovascular exam: PRESENT: RRR. ABSENT: diastolic murmur, rubs, systolic murmur Pulses: PRESENT: normal dorsalis pedis pul Vascular exam: PRESENT: normal capillary refill GI/Abdominal exam: PRESENT: normal bowel sounds, soft. ABSENT: distended, guar ding, mass, organolmegaly, rebound, tenderness Rectal exam: PRESENT: deferred Extremities exam: PRESENT: full ROM, tenderness. ABSENT: calf tenderness, clubbing, pedal edema Musculoskeletal exam: ABSENT: full ROM Neurological exam: PRESENT: alert, awake, oriented to person, oriented to place, oriented to time, oriented to situation, CN II-XII grossly intact. ABSENT: motor sensory deficit Psychiatric exam: PRESENT: appropriate affect, normal mood. ABSENT: homicidal ideation, suicidal ideation Skin exam: PRESENT: dry, intact, warm. ABSENT: cyanosis, rash Results Laboratory Results: 10/08/18 21:30 10/08/18 21:30 10/08/18 10/08/18 21:30 21:30 WBC 14.4 H RBC 3.71 L Hgb 11.7 L Hct 36.8 L MCV 99 H MCH 31.5 MCHC 31.7 L RDW 18.8 H Plt Count 341 Seg Neutrophils % 79.3 H Lymphocytes % 8.9 L Monocytes % 8.6 Eosinophils % 1.9 Basophils % 1.3 Absolute Neutrophils 11.4 H Absolute Lymphocytes 1.3 Absolute Monocytes 1.2 Absolute Eosinophils 0.3 Absolute Basophils 0.2 Sodium 138.7 Potassium 4.3 Chloride 102 Carbon Dioxide 21 L Anion Gap 16 BUN 29 H Creatinine 6.26 H Est GFR ( Amer) 11 L Est GFR (Non-Af Amer) 9 L Glucose 116 H Calcium 8.3 L Magnesium 1.5 L 10/08/18 10/08/18 21:30 21:30 Creatine Kinase 78 CK-MB (CK-2) 3.98 Troponin I 0.031 Impressions: Hip X-Ray 10/08/18 00:00 IMPRESSION: No fracture identified. Lower Extremity CT 10/08/18 19:50 IMPRESSION: Acute nondisplaced left femoral intertrochanteric fracture. Assessment and Plan - Diagnosis (1) Nondisplaced intertrochanteric fracture of femur Qualifiers: Encounter type: initial encounter Fracture type: closed Laterality: left Qualified Code(s): S72.145A - Nondisplaced intertrochanteric fracture of left femur, initial encounter for closed fracture Is this a current diagnosis for this admission?: Yes Plan: Patient in moderate risk for cardiovascular complication of orthopedic surgery given comorbidities of congestive heart failure, coronary artery disease and diabetes however no immediately reversible risk present justifying delay of surgery. Orthopedic surgery consulted. (2) Anemia in chronic kidney disease Is this a current diagnosis for this admission?: Yes Plan: Defer to nephrology. (3) Chronic renal failure, stage 5 Is this a current diagnosis for this admission?: Yes Plan: Oliguric, follow-up nephrology consult for PD orders. - Time Time Spent with patient: 35 or more minutes - Inpatient Certification Medical Necessity: Need Close Monitoring Due to Risk of Patient Decompensation
[2018-10-09 00:06] LABS: ABSOLUTE RETICS # 0.097 10^6/uL (0.028-0.122); RETICULOCYTE COUNT (AUTO) 2.53 % (0.66-2.85)
[2018-10-09 00:13] LABS: IRON(TIBC) 51.9 ug/dL (49-181)
[2018-10-09] MEDS ORDERED: CALCIUM GLUCONATE 1,000 MG in DEXTROSE 5%-WATER 50 ML IV ONE (00:30)
[2018-10-09] MEDS ORDERED: MAGNESIUM OXIDE 400 MG TABLET PO ONE (00:30)
[2018-10-09] MEDS: INSULIN LISPRO 100 UNIT/ML 3 ML VIAL SUBCUT SCH ×4 (01:08→17:12)
[2018-10-09] MEDS ORDERED: CALCIUM GLUCONATE 1000 MG/10 ML INJ IV ONE (02:19)
[2018-10-09] MEDS: IPRATROPIUM/ALBUTEROL 0.5-2.5 MG/3 ML AMPUL NEB SCH ×3 (02:22→16:54)
[2018-10-09 03:49] LABS: HEMATOCRIT 32.2 % (37.9-51.0); HEMOGLOBIN 10.2 g/dL (13.5-17.0); MEAN CORPUSCULAR HEMOGLOBIN 31.1 pg (27.0-33.4); MEAN CORPUSCULAR HGB CONC 31.6 g/dL (32.0-36.0); MEAN CORPUSCULAR VOLUME 98 fl (80-97); PLATELET COUNT 308 10^3/uL (150-450); RED BLOOD COUNT 3.28 10^6/uL (4.35-5.55); RED CELL DISTRIBUTION WIDTH 18.7 % (11.5-14.0); WHITE BLOOD COUNT 10.7 10^3/uL (4.0-10.5)
[2018-10-09 04:07] LABS: ANION GAP 13 (5-19); BLOOD UREA NITROGEN 29 mg/dL (7-20); CALCIUM 7.9 mg/dL (8.4-10.2); CARBON DIOXIDE 25 mmol/L (22-30); CHLORIDE 101 mmol/L (98-107); GLUCOSE 185 mg/dL (75-110); POTASSIUM 4.1 mmol/L (3.6-5.0)
[2018-10-09 04:15] LABS: CREATINE KINASE MB 3.52 ng/mL (<4.55)
[2018-10-09 04:20] LABS: TROPONIN I 0.034 ng/mL
[2018-10-09] MEDS: HEPARIN SOD (PORCINE) 5,000 UNIT/ML 1 ML VIAL SUBCUT SCH ×3 (05:52→21:57)
[2018-10-09] MEDS ORDERED: DEXTROSE 40% GEL 15 GM TUBE PO PRN ×2 (07:05)
[2018-10-09] MEDS ORDERED: GLUCAGON,HUMAN RECOMB 1 MG INJ SUBCUT PRN (07:05)
[2018-10-09] MEDS ORDERED: DEXTROSE 50%-WATER 25 GM/50 ML DISP.SYRIN IV PRN (07:05)
[2018-10-09] MEDS: FENTANYL CITRATE INJ/PF 100 MCG/2 ML AMPUL IV PRN ×5 (07:06→21:57)
--- NOTE | 2018-10-09 07:07 | PDOC CONSULTATION ---
Consultation Consult Date: 10/09/18 Attending physician:: DORI DASH Provider Consulted: BLANCA JACKSON History of Present Illness Admission Date/PCP: 10/08/18 21:21 [facility] History of Present Illness: CELIO WAGNER is a 67 year old male Past Medical History Cardiac Medical History: Reports: Congestive Heart Failure, Coronary Artery Disease, Myocardial Infarction - Twice with stents placed, Hyperlipidema, Hypertension Denies: Atrial Fibrillation, DVT, Pulmonary Embolism Pulmonary Medical History: Reports: Chronic Obstructive Pulmonary Disease (COPD), Respiratory Failure Denies: Asthma Neurological Medical History: Denies: Seizures Endocrine Medical History: Reports: Diabetes Mellitus Type 2 Denies: Diabetes Mellitus Type 1, Hyperthyroidism, Hypothyroidism Renal/ Medical History: Reports: End Stage Renal Disease GI Medical History: Reports: Diverticulitis Denies: Cirrhosis, Hepatitis Musculoskeltal Medical History: Denies: Arthritis, Gout Skin Medical History: Denies: Eczema, Psoriasis Psychiatric Medical History: Reports: Depression Hematology: Reports: Anemia Denies: Bleeding Tendencies Infectious Medical History: Reports: Clostridium Difficile Past Surgical History Past Surgical History: Reports: Cardiac Catheterization, Coronary Stent - X2, Other - Small bowel resection; adhesion lysis; peritoneal dialysis access Social History Smoking Status: Never Smoker Frequency of Alcohol Use: None Hx Recreational Drug Use: No Drugs: None Hx Prescription Drug Abuse: No - Advance Directive Resuscitation Status: Full Code Family History Family History: CAD, DM, Hypertension Parental Family History Reviewed: No Children Family History Reviewed: No Sibling(s) Family History Reviewed.: No Medication/Allergy Home Medications: Atorvastatin Calcium [Lipitor 80 mg Tablet] 80 mg PO QHS 04/23/18 Carvedilol [Coreg 12.5 mg Tablet] 12.5 mg PO Q12 04/23/18 Escitalopram Oxalate [Lexapro 10 mg Tablet] 10 mg PO DAILY 04/23/18 Finasteride [Proscar 5 mg Tablet] 5 mg PO DAILY 04/23/18 Folic Acid/Vitamin B Comp W-C [Renal Multivitamin Tablet] 1 tab PO DAILY 04/23/18 Insulin Glargine,Hum.rec.anlog [Lantus (Pyxis) Insulin 100 Unit/1 ml 10 ml] 80 unit SUBCUT QHS 04/23/18 Isosorbide Mononitrate [Imdur 30 mg Tablet.er] 30 mg PO DAILY 04/23/18 Terazosin HCl [Hytrin] 2 mg PO QHS 04/23/18 Famotidine [Pepcid 20 mg Tablet] 20 mg PO QHS 08/08/18 Ipratropium/Albuterol Sulfate [Duoneb 3 ml Ampul] 1 vial NEB QID 08/08/18 Aspirin [Aspirin 81 mg Chewable Tablet] 81 mg PO DAILY 09/23/18 Bisacodyl [Dulcolax 5 mg Tablet] 5 mg PO ASDIR PRN 09/23/18 Omeprazole 20 mg PO DAILY 09/23/18 Aripiprazole [Abilify 2 mg Tablet] 2 mg PO DAILY #30 tablet 10/05/18 Allergies/Adverse Reactions: No Known Allergies Allergy (Verified 09/23/18 09:48) Review of Systems Constitutional: ABSENT: chills, fever(s), headache(s), weight gain, weight loss Eyes: ABSENT: visual disturbances Ears: ABSENT: hearing changes Cardiovascular: ABSENT: chest pain, dyspnea on exertion, edema, orthropnea, palpitations Respiratory: ABSENT: cough, hemoptysis Gastrointestinal: ABSENT: abdominal pain, constipation, diarrhea, hematemesis, hematochezia, nausea, vomiting Genitourinary: ABSENT: dysuria, hematuria Musculoskeletal: PRESENT: as per HPI Integumentary: ABSENT: rash, wounds Neurological: ABSENT: abnormal gait, abnormal speech, confusion, dizziness, focal weakness, syncope Psychiatric: ABSENT: anxiety, depression, homidical ideation, suicidal ideation Endocrine: ABSENT: cold intolerance, heat intolerance, menstrual abnormalities, polydipsia, polyuria Hematologic/Lymphatic: ABSENT: easy bleeding, easy bruising, lymphadenopathy Physical Exam Vital Signs: Temp Pulse Resp BP Pulse Ox 98.4 F 80 19 119/71 95 10/08/18 18:53 10/09/18 00:00 10/09/18 06:01 10/09/18 06:01 10/09/18 06:01 Intake & Output 10/07/18 10/08/18 10/09/18 06:59 06:59 06:59 Intake Total 2500 Output Total 3000 Balance -500 Weight 88.2 kg General appearance: PRESENT: no acute distress, well-developed, well-nourished Head exam: PRESENT: atraumatic, normocephalic Eye exam: PRESENT: conjunctiva pink, EOMI, PERRLA. ABSENT: scleral icterus Ear exam: PRESENT: normal external ear exam Mouth exam: PRESENT: moist, tongue midline Neck exam: PRESENT: full ROM. ABSENT: carotid bruit, JVD, lymphadenopathy, thyromegaly Cardiovascular exam: PRESENT: RRR. ABSENT: diastolic murmur, rubs, systolic murmur Pulses: PRESENT: normal dorsalis pedis pul, +2 pedal pulses bilateral Vascular exam: PRESENT: normal capillary refill GI/Abdominal exam: PRESENT: normal bowel sounds, soft. ABSENT: distended, guarding, mass, organolmegaly, rebound, tenderness Rectal exam: PRESENT: deferred Musculoskeletal exam: PRESENT: other - Left hip: Tender to palpation on the proximal femur. Positive logroll. Intact plantarflexion/dorsiflexion. No sensory deficits. Moderate thigh swelling. Dorsalis pedis pulse 2+. Neurological exam: PRESENT: alert, awake, oriented to person, oriented to place, oriented to time, oriented to situation, CN II-XII grossly intact. ABSENT: motor sensory deficit Psychiatric exam: PRESENT: flat affect, normal mood. ABSENT: homicidal ideation, suicidal ideation Skin exam: PRESENT: dry, intact, warm. ABSENT: cyanosis, rash Results Laboratory Results: 10/09/18 03:30 10/09/18 03:30 10/08/18 10/08/18 10/08/18 21:30 21:30 21:30 WBC 14.4 H RBC 3.71 L Hgb 11.7 L Hct 36.8 L MCV 99 H MCH 31.5 MCHC 31.7 L RDW 18.8 H Plt Count 341 Seg Neutrophils % 79.3 H Lymphocytes % 8.9 L Monocytes % 8.6 Eosinophils % 1.9 Basophils % 1.3 Absolute Neutrophils 11.4 H Absolute Lymphocytes 1.3 Absolute Monocytes 1.2 Absolute Eosinophils 0.3 Absolute Basophils 0.2 Retic Count (auto) 2.53 Absolute Retic 0.097 Sodium 138.7 Potassium 4.3 Chloride 102 Carbon Dioxide 21 L Anion Gap 16 BUN 29 H Creatinine 6.26 H Est GFR ( Amer) 11 L Est GFR (Non-Af Amer) 9 L Glucose 116 H Calcium 8.3 L Magnesium 1.5 L Iron TIBC % Saturation Ferritin Vitamin B12 Folate 10/08/18 10/09/18 10/09/18 21:30 03:30 03:30 WBC 10.7 H RBC 3.28 L Hgb 10.2 L Hct 32.2 L MCV 98 H MCH 31.1 MCHC 31.6 L RDW 18.7 H Plt Count 308 Seg Neutrophils % Lymphocytes % Monocytes % Eosinophils % Basophils % Absolute Neutrophils Absolute Lymphocytes Absolute Monocytes Absolute Eosinophils Absolute Basophils Retic Count (auto) Absolute Retic Sodium 139.1 Potassium 4.1 Chloride 101 Carbon Dioxide 25 Anion Gap 13 BUN 29 H Creatinine 6.31 H Est GFR ( Amer) 11 L Est GFR (Non-Af Amer) 9 L Glucose 185 H Calcium 7.9 L Magnesium Iron 51.9 TIBC 166 L % Saturation 31 Ferritin 1700.00 H Vitamin B12 475.0 Folate 10.80 10/08/18 10/08/18 10/09/18 21:30 21:30 03:30 Creatine Kinase 78 51 L CK-MB (CK-2) 3.98 Troponin I 0.031 10/09/18 03:30 Creatine Kinase CK-MB (CK-2) 3.52 Troponin I 0.034 Impressions: Hip X-Ray 10/08/18 00:00 IMPRESSION: No fracture identified. Lower Extremity CT 10/08/18 19:50 IMPRESSION: Acute nondisplaced left femoral intertrochanteric fracture. Assessment & Plan - Diagnosis (1) Nondisplaced intertrochanteric fracture of femur Qualifiers: Encounter type: initial encounter Fracture type: closed Laterality: left Qualified Code(s): S72.145A - Nondisplaced intertrochanteric fracture of left femur, initial encounter for closed fracture Is this a current diagnosis for this admission?: Yes Plan: I have reviewed patient's previous CT scan and most current CT scan along with radiographs. There is evidence of new cortical irregularity along the intertrochanteric region indicative of nondisplaced intertrochanteric fracture. At this point I discussed treatment option with the patient including operative versus nonoperative intervention decision was made to proceed with operative treatment which include cephalo-medullary nail left intertrochanteric fracture. We will proceed with operative intervention which patient has been medically optimized for surgery. Patient will be NPO p MN for possible surgery on 10/10 versus 10/11 pending medical clearance.
--- NOTE | 2018-10-09 07:59 | EKG REPORT ---
SEVERITY:- ABNORMAL ECG - SINUS RHYTHM BORDERLINE LEFT AXIS DEVIATION BORDERLINE PROLONGED QT INTERVAL NONSPECIFIC INFERIOR ST-T CHANGES : Confirmed by: Yaya Pike MD 09-Oct-2018 07:58:59
[2018-10-09] MEDS ORDERED: IPRATROPIUM/ALBUTEROL 120 PUFF/4 GM MDI IH PRN (08:48)
[2018-10-09] MEDS ORDERED: IPRATROPIUM/ALBUTEROL 0.5-2.5 MG/3 ML AMPUL NEB PRN (08:48)
[2018-10-09 09:57] LABS: TROPONIN I 0.038 ng/mL
[2018-10-09] MEDS ORDERED: (PENDING PHARMACY ID) (Escitalopram Oxalate [Lexapro] 30 MG) PO SCH (10:00)
[2018-10-09] MEDS: DOCUSATE SODIUM 100 MG CAPSULE PO SCH ×4 (10:28→17:12)
[2018-10-09] MEDS: FOLIC ACID/VITAMIN B COMP W-C CAPSULE PO SCH (10:34)
[2018-10-09] MEDS: ARIPIPRAZOLE 2 MG TABLET PO SCH (10:34)
[2018-10-09] MEDS: ESCITALOPRAM OXALATE 10 MG TABLET PO SCH (10:34)
[2018-10-09] MEDS: CARVEDILOL 12.5 MG TABLET PO SCH ×2 (10:34→21:59)
[2018-10-09] MEDS: ISOSORBIDE MONONITRATE 30 MG TAB.ER.24H PO SCH (10:35)
[2018-10-09] MEDS: FINASTERIDE 5 MG TABLET PO SCH (10:35)
--- NOTE | 2018-10-09 13:36 | RADIOLOGY REPORT (SQ) ---
EXAM DESCRIPTION: CHEST SINGLE VIEW COMPLETED DATE/TIME: 10/09/2018 10:06 am REASON FOR STUDY: pre-op COMPARISON: 08/12/2018 NUMBER OF VIEWS: One view. TECHNIQUE: Single frontal radiographic view of the chest acquired. LIMITATIONS: None. FINDINGS: LUNGS AND PLEURA: Chronic elevation right diaphragm. No evidence of pulmonary edema or pn eumonia. MEDIASTINUM AND HILAR STRUCTURES: No masses. Contour normal. HEART AND VASCULAR STRUCTURES: Heart enlarged without failure. Normal vasculature. BONES: No acute findings. HARDWARE: None in the chest. OTHER: No other significant finding. IMPRESSION: No acute findings in the chest. TECHNICAL DOCUMENTATION: JOB ID: [id number] [employer]- All Rights Reserved Reading location - IP/workstation name: [email or web address]
--- NOTE | 2018-10-09 16:13 | RADIOLOGY REPORT (SQ) ---
EXAM DESCRIPTION: SHOULDER LEFT 2 OR MORE VIEWS COMPLETED DATE/TIME: 10/09/2018 3:55 pm REASON FOR STUDY: fall, pain COMPARISON: None. NUMBER OF VIEWS: Three views. TECHNIQUE: Internal rotation, external rotation, and Y view images acquired of the left shoulder. LIMITATIONS: None. FINDINGS: MINERALIZATION: Normal. BONES: No acute fracture. No worrisome bone lesions. JOINTS: No dislocation. VISUALIZED LUNGS AND RIBS: No pneumothorax. No rib fracture. SOFT TISSUES: No radiopaque foreign body. OTHER: No other significant finding. IMPRESSION: NEGATIVE STUDY OF THE LEFT SHOULDER. NO RADIOGRAPHIC EVIDENCE OF ACUTE INJURY. TECHNICAL DOCUMENTATION: JOB ID: [id number] [employer]- All Rights Reserved Reading location - IP/workstation name: [email or web address]
--- NOTE | 2018-10-09 19:35 | Progress Note Acknowledgement ---
Progress Note Acknowledgement Progess Note Acknowledgement: I, the undersigned member of the medical staff with appropriate privileges and with supervisory authority over [place], a [facility] practice allied health professional, acknowledge that I have reviewed the progress notes entered on this patient, and in my professional judgment believe that the assessment made and/or any care evidenced was appropriate
--- NOTE | 2018-10-09 19:44 | PDOC PROGRESS REPORT ---
Subjective Progress Note for:: 10/09/18 Subjective:: CELIO WAGNER is a 67 year old male with a past medical history of congestive heart failure, coronary artery disease, COPD, diabetes, hypertension, blindness and end-stage renal failure on peritoneal dialysis who was admitted 10/08/2018 for a nondisplaced intertrochanteric femur fracture secondary to mechanical fall at home. Patient was seen on morning rounds. He is found resting in bed comfortably supplemental oxygen via nasal cannula. The patient reports that he does use Home O2. He denies any chest pain, palpitations, dizziness, headaches, shortness of breath immediately prior to his fall. He reports that he simply lost his balance. At this time he reports left hip pain and requests additional pain medication. He denies current fever, chills, chest pain, palpitations, dyspnea, orthopnea, cough, abdominal pain, nausea vomiting and diarrhea. He has no other questions or concerns at this time. No concerns per nursing. Reason For Visit: HIP FRACTURE,ESRD Physical Exam Vital Signs: Temp Pulse Resp BP Pulse Ox 98.4 F 68 18 105/61 96 10/08/18 18:53 10/09/18 17:40 10/09/18 16:54 10/09/18 16:01 10/09/18 16:54 Intake & Output 10/08/18 10/09/18 10/10/18 06:59 06:59 06:59 Intake Total 2500 480 Output Total 3000 Balance -500 480 Weight 88.2 kg General appearance: PRESENT: no acute distress, cooperative - Very pleasant, well-developed, well-nourished Head exam: PRESENT: atraumatic, normocephalic Eye exam: PRESENT: conjunctiva pink, EOMI, PERRLA. ABSENT: scleral icterus Ear exam: PRESENT: normal external ear exam Mouth exam: PRESENT: moist, tongue midline Neck exam: ABSENT: carotid bruit, JVD, lymphadenopathy, thyromegaly Respiratory exam: PRESENT: clear to auscultation yair. ABSENT: rales, rhonchi, wheezes Cardiovascular exam: PRESENT: RRR. ABSENT: diastolic murmur, rubs, systolic murmur Pulses: PRESENT: normal dorsalis pedis pul Vascular exam: PRESENT: normal capillary refill GI/Abdominal exam: PRESENT: normal bowel sounds, soft. ABSENT: distended, guarding, mass, organolmegaly, rebound, tenderness Rectal exam: PRESENT: deferred Extremities exam: PRESENT: tenderness - Left lower extremity. ABSENT: calf tenderness, clubbing, full ROM, pedal edema Neurological exam: PRESENT: alert, awake, oriented to person, oriented to place, oriented to time, oriented to situation, CN II-XII grossly intact. ABSENT: motor sensory deficit Psychiatric exam: PRESENT: appropriate affect, normal mood. ABSENT: homicidal ideation, suicidal ideation Skin exam: PRESENT: dry, intact, warm. ABSENT: cyanosis, rash Results Laboratory Results: 10/09/18 03:30 10/09/18 03:30 10/08/18 10/08/18 10/08/18 21:30 21:30 21:30 WBC 14.4 H RBC 3.71 L Hgb 11.7 L Hct 36.8 L MCV 99 H MCH 31.5 MCHC 31.7 L RDW 18.8 H Plt Count 341 Seg Neutrophils % 79.3 H Lymphocytes % 8.9 L Monocytes % 8.6 Eosinophils % 1.9 Basophils % 1.3 Absolute Neutrophils 11.4 H Absolute Lymphocytes 1.3 Absolute Monocytes 1.2 Absolute Eosinophils 0.3 Absolute Basophils 0.2 Retic Count (auto) 2.53 Absolute Retic 0.097 Sodium 138.7 Potassium 4.3 Chloride 102 Carbon Dioxide 21 L Anion Gap 16 BUN 29 H Creatinine 6.26 H Est GFR ( Amer) 11 L Est GFR (Non-Af Amer) 9 L Glucose 116 H Calcium 8.3 L Magnesium 1.5 L Iron TIBC % Saturation Ferritin Vitamin B12 Folate 10/08/18 10/09/18 10/09/18 21:30 03:30 03:30 WBC 10.7 H RBC 3.28 L Hgb 10.2 L Hct 32.2 L MCV 98 H MCH 31.1 MCHC 31.6 L RDW 18.7 H Plt Count 308 Seg Neutrophils % Lymphocytes % Monocytes % Eosinophils % Basophils % Absolute Neutrophils Absolute Lymphocytes Absolute Monocytes Absolute Eosinophils Absolute Basophils Retic Count (auto) Absolute Retic Sodium 139.1 Potassium 4.1 Chloride 101 Carbon Dioxide 25 Anion Gap 13 BUN 29 H Creatinine 6.31 H Est GFR ( Amer) 11 L Est GFR (Non-Af Amer) 9 L Glucose 185 H Calcium 7.9 L Magnesium Iron 51.9 TIBC 166 L % Saturation 31 Ferritin 1700.00 H Vitamin B12 475.0 Folate 10.80 10/08/18 10/08/18 10/09/18 21:30 21:30 03:30 Creatine Kinase 78 51 L CK-MB (CK-2) 3.98 Troponin I 0.031 10/09/18 10/09/18 10/09/18 03:30 09:12 09:12 Creatine Kinase 56 CK-MB (CK-2) 3.52 3.00 Troponin I 0.034 0.038 Impressions: Hip X-Ray 10/08/18 00:00 IMPRESSION: No fracture identified. Lower Extremity CT 10/08/18 19:50 IMPRESSION: Acute nondisplaced left femoral intertrochanteric fracture. Chest X-Ray 10/09/18 00:00 IMPRESSION: No acute findings in the chest. Shoulder X-Ray 10/09/18 00:00 IMPRESSION: NEGATIVE STUDY OF THE LEFT SHOULDER. NO RADIOGRAPHIC EVIDENCE OF ACUTE INJURY. Assessment and Plan - Diagnosis (1) Nondisplaced intertrochanteric fracture of femur Qualifiers: Encounter type: initial encounter Fracture type: closed Laterality: left Qualified Code(s): S72.145A - Nondisplaced intertrochanteric fracture of left femur, initial encounter for closed fracture Is this a current diagnosis for this admission?: Yes Plan: Patient is admitted to the medical floor. Orthopedics has been consulted; plan for surgical repair tomorrow. We will defer postoperative DVT prophylaxis to their expertise. Patient in moderate risk for cardiovascular complication of orthopedic surgery given comorbidities of congestive heart failure, coronary artery disease and diabetes however no immediately reversible risk present justifying delay of surgery. Spoke with nephrology today; Dr. Sams indicates that the patient is cleared for surgery from her perspective. (2) Anemia in chronic kidney disease Is this a current diagnosis for this admission?: Yes Plan: Improved from baseline; hemoglobin 11.7 on admission. During his last admission his hemoglobin was stable at 8.5-9. Nephrology is consulted; will defer to their expertise. (3) CHF (congestive heart failure) Qualifiers: Heart failure type: unspecified Heart failure chronicity: chronic Qualified Code(s): I50.9 - Heart failure, unspecified Is this a current diagnosis for this admission?: Yes Plan: Stable and without exacerbation at this time. We will continue the patient's home medication regiment of carvedilol, isosorbide, atorvastatin and aspirin. Monitor daily weights. Observe closely for fluid volume overload in the postoperative period. (4) Chronic renal failure, stage 5 Is this a current diagnosis for this admission?: Yes Plan: Oliguric; receives peritoneal dialysis. Nephrology is consulted. Did receive dialysis today. - Time Time Spent with patient: 25-34 minutes Medications reviewed and adjusted accordingly: Yes Anticipated discharge: SNF
--- NOTE | 2018-10-09 21:30 | PDOC CONSULTATION ---
Consultation Consult Date: 10/09/18 Provider Consulted: JOEL SOLO Consult reason:: I was asked to see the patient for management and supervision of peritoneal dialysis and the patient with ESRD. History of Present Illness Admission Date/PCP: 10/08/18 21:21 [facility] History of Present Illness: CELIO WAGNER is a 67 year old male known to me with history of ESRD on peritoneal dialysis using both cycler and manual exchanges at home, coronary artery disease, congestive heart failure, COPD, hypertension and diabetes mellitus who presented yesterday with left hip pain. Patient was just recently hospitalized and discharged last week. Apparently the patient lost his balance and fell on his left side. Initial evaluation with x-ray showed nondisplaced intertrochanteric fracture of the femur. Orthopedics was consulted and the plan was to do surgery in a day or 2. Otherwise patient denies any other complaints at this time. Past Medical History Cardiac Medical History: Reports: CHF-Diastolic, Coronary Artery Disease, Hyperlipidemia, Hypertension-primary, Myocardial Infarction - Twice with stents placed, Pulmonary Hypertension Pulmonary Medical History: Reports: Chronic Obstructive Pulmonary Disease (COPD), Respiratory Failure Endocrine Medical History: Reports: Diabetes Mellitus Type 2, Obesity Complications of Diabetes: Reports: Autonomic Neuropathy, Diabetic Foot Ulcer, Nephropathy, Retinopathy Renal/ Medical History: Reports: Benign Prostatic Hyperplasia, End Stage Renal Disease, Hypocalcemia, Hyperphosphatemia GI Medical History: Reports: Diverticulitis Psychiatric Medical History: Reports: Depression Infectious Medical History: Reports: Clostridium Difficile Hematology Medical History: Reports Anemia of Chronic Kidney Disease Past Surgical History Past Surgical History: Reports: Cardiac Catheterization, Coronary Stent - X2, Dialysis Access Surgery PD, Other - Small bowel resection; adhesion lysis; peritoneal dialysis access Social History Information Source: Patient, [facility] Records Smoking Status: Never Smoker Frequency of Alcohol Use: None Hx Recreational Drug Use: No Drugs: None Hx Prescription Drug Abuse: No - Advance Directive Resuscitation Status: Full Code Family History Family History: CAD, DM, Hypertension Parental Family History Reviewed: Yes Children Family History Reviewed: Yes Sibling(s) Family History Reviewed.: Yes Medication/Allergy Home Medications: Aripiprazole [Abilify 2 mg Tablet] 2 mg PO DAILY 10/09/18 Aspirin [Aspirin 81 mg Chewable Tablet] 81 mg PO DAILY 10/09/18 Atorvastatin Calcium [Lipitor 80 mg Tablet] 80 mg PO QHS 10/09/18 B Complex W-C No.20/Folic Acid [Renal Caps Softgel] 1 mg PO DAILY 10/09/18 Carvedilol [Coreg 12.5 mg Tablet] 12.5 mg PO Q12 10/09/18 Docusate Sodium [Colace 100 mg Capsule] 100 mg PO BID 10/09/18 Escitalopram Oxalate [Lexapro] 30 mg PO DAILY 10/09/18 Famotidine [Pepcid 20 mg Tablet] 20 mg PO QHS 10/09/18 Finasteride [Proscar 5 mg Tablet] 5 mg PO DAILY 10/09/18 Insulin Aspart [Novolog Insulin 100 Unit/1 ml 10 ml] 0 unit SUBCUT .SLD SCALE 10/09/18 Insulin Glargine,Hum.rec.anlog [Lantus Insulin 100 Unit/1 ml 10 ml] 80 unit SUBCUT QHS 10/09/18 Ipratropium/Albuterol Sulfate [Combivent Respimat 4 gm Mdi] 1 puff IH QIDP PRN 10/09/18 Ipratropium/Albuterol Sulfate [Duoneb 3 ml Ampul] 3 ml NEB RTQIDP PRN 10/09/18 Isosorbide Mononitrate [Imdur 30 mg Tablet.er] 30 mg PO DAILY 10/09/18 Omeprazole 20 mg PO Q6AM 10/09/18 Terazosin HCl [Hytrin] 2 mg PO QHS 10/09/18 Allergies/Adverse Reactions: No Known Allergies Allergy (Verified 09/23/18 09:48) Review of Systems All systems: reviewed and no additional remarkable complaints except as stated Review of Systems: Constitutional: ABSENT: chills, fatigue, fever(s), headache(s), weight gain, w eight loss Eyes: ABSENT: visual disturbances Ears: ABSENT: hearing changes Cardiovascular: ABSENT: chest pain, dyspnea on exertion, edema, orthropnea, palpitations Respiratory: ABSENT: cough, dyspnea, hemoptysis Gastrointestinal: ABSENT: abdominal pain, constipation, diarrhea, hematemesis, hematochezia, nausea, vomiting Genitourinary: ABSENT: dysuria, hematuria Musculoskeletal: ABSENT: joint swelling; left hip pain Integumentary: ABSENT: rash, wounds Neurological: ABSENT: abnormal gait, abnormal speech, confusion, dizziness, focal weakness, numbness, syncope Psychiatric: ABSENT: anxiety, depression Endocrine: ABSENT: cold intolerance, heat intolerance, polydipsia, polyuria Hematologic/Lymphatic: ABSENT: easy bleeding, easy bruising, lymphadenopathy Physical Exam Vital Signs: Temp Pulse Resp BP Pulse Ox 98.4 F 84 16 146/63 H 96 10/08/18 18:53 10/09/18 08:34 10/09/18 08:34 10/09/18 07:07 10/09/18 08:34 Intake & Output 10/08/18 10/09/18 10/10/18 06:59 06:59 06:59 Intake Total 2500 240 Output Total 3000 Balance -500 240 Weight 88.2 kg Exam: General appearance: [no acute distress, cooperative, well-developed, well- nourished] Head exam: [PRESENT: atraumatic, normocephalic] Eye exam: [PRESENT: Conjunctiva slightly pale, EOMI, PERRLA. ABSENT: co njunctival injection, scleral icterus] Mouth exam: [PRESENT: moist, neck supple, tongue midline] Neck exam:[ PRESENT: full ROM. ABSENT: carotid bruit, JVD, lymphadenopathy, thyromegaly] Respiratory exam: [PRESENT: clear to auscultation bilaterally. ABSENT: rales, rhonchi, stridor, wheezes] Cardiovascular exam: [PRESENT: RRR, +S1, +S2. ABSENT: systolic murmur] Pulses:[ PRESENT: normal radial pulses, normal dorsalis pedis pulses] GI/Abdominal exam: [PRESENT: normal bowel sounds, soft. ABSENT: guarding, mass, tenderness] Rectal exam: [deferred] Extremities exam: [PRESENT: full ROM. ABSENT: calf tenderness, pedal edema] Musculoskeletal: [PRESENT: full ROM. ABSENT: deformity] Neurological exam: [PRESENT: alert, Awake, Oriented to person, Oriented to place, Oriented to time, reflexes normal, CN II-XII grossly intact. ABSENT: motor sensory deficit] Psychiatric exam: [PRESENT: appropriate affect, normal mood. ABSENT: homicidal ideation, suicidal ideation] Skin exam: [PRESENT: intact, dry, warm. ABSENT: rash] Results Laboratory Results: 10/09/18 03:30 10/09/18 03:30 10/08/18 10/08/18 10/08/18 21:30 21:30 21:30 WBC 14.4 H RBC 3.71 L Hgb 11.7 L Hct 36.8 L MCV 99 H MCH 31.5 MCHC 31.7 L RDW 18.8 H Plt Count 341 Seg Neutrophils % 79.3 H Lymphocytes % 8.9 L Monocytes % 8.6 Eosinophils % 1.9 Basophils % 1.3 Absolute Neutrophils 11.4 H Absolute Lymphocytes 1.3 Absolute Monocytes 1.2 Absolute Eosinophils 0.3 Absolute Basophils 0.2 Retic Count (auto) 2.53 Absolute Retic 0.097 Sodium 138.7 Potassium 4.3 Chloride 102 Carbon Dioxide 21 L Anion Gap 16 BUN 29 H Creatinine 6.26 H Est GFR ( Amer) 11 L Est GFR (Non-Af Amer) 9 L Glucose 116 H Calcium 8.3 L Magnesium 1.5 L Iron TIBC % Saturation Ferritin Vitamin B12 Folate 10/08/18 10/09/18 10/09/18 21:30 03:30 03:30 WBC 10.7 H RBC 3.28 L Hgb 10.2 L Hct 32.2 L MCV 98 H MCH 31.1 MCHC 31.6 L RDW 18.7 H Plt Count 308 Seg Neutrophils % Lymphocytes % Monocytes % Eosinophils % Basophils % Absolute Neutrophils Absolute Lymphocytes Absolute Monocytes Absolute Eosinophils Absolute Basophils Retic Count (auto) Absolute Retic Sodium 139.1 Potassium 4.1 Chloride 101 Carbon Dioxide 25 Anion Gap 13 BUN 29 H Creatinine 6.31 H Est GFR ( Amer) 11 L Est GFR (Non-Af Amer) 9 L Glucose 185 H Calcium 7.9 L Magnesium Iron 51.9 TIBC 166 L % Saturation 31 Ferritin 1700.00 H Vitamin B12 475.0 Folate 10.80 10/08/18 10/08/18 10/09/18 21:30 21:30 03:30 Creatine Kinase 78 51 L CK-MB (CK-2) 3.98 Troponin I 0.031 10/09/18 10/09/18 10/09/18 03:30 09:12 09:12 Creatine Kinase 56 CK-MB (CK-2) 3.52 3.00 Troponin I 0.034 0.038 Impressions: Hip X-Ray 10/08/18 00:00 IMPRESSION: No fracture identified. Lower Extremity CT 10/08/18 19:50 IMPRESSION: Acute nondisplaced left femoral intertrochanteric fracture. Assessment & Plan - Diagnosis (1) Nondisplaced intertrochanteric fracture of femur Qualifiers: Encounter type: initial encounter Fracture type: closed Laterality: left Qualified Code(s): S72.145A - Nondisplaced intertrochanteric fracture of left femur, initial encounter for closed fracture Is this a current diagnosis for this admission?: Yes Plan: Orthopedics on board. Plan for surgical repair. From nephrology standpoint getting the patient may proceed with planned surgery. He has mild to moderate risk for surgical procedure. (2) End-stage renal disease on peritoneal dialysis Is this a current diagnosis for this admission?: Yes Plan: We will supervise peritoneal dialysis while here in the hospital. We will do CAPD since we do not have a cycler machine here. We will do 4 exchanges every 6 hours using 2500 mL of fill volume with 2.5% solution if systolic blood pressures greater than 110 and 1.5% solution if systolic blood pressure is less than 110. Will adjust treatment accordingly depending on patient's weight and need for further ultrafiltration. (3) Anemia in chronic kidney disease Is this a current diagnosis for this admission?: Yes Plan: We will monitor and give Procrit as necessary. Last Procrit was received last week prior to discharge. (4) Diabetes mellitus type 2 in obese Is this a current diagnosis for this admission?: Yes (5) HTN (hypertension) Is this a current diagnosis for this admission?: Yes - Notes Notes: Thank you very much for this consultation. We will follow patient with you. - Time Time Spent: 50 to 70 Minutes
[2018-10-09] MEDS: ATORVASTATIN CALCIUM 80 MG TABLET PO SCH (21:59)
[2018-10-09] MEDS: DOXAZOSIN MESYLATE 2 MG TABLET PO SCH (21:59)
[2018-10-09] MEDS: FAMOTIDINE 20 MG TABLET PO SCH (21:59)
[2018-10-09] MEDS ORDERED: (PENDING PHARMACY ID) (Terazosin Hcl [Hytrin] 2 MG) PO SCH (22:00)
[2018-10-09] MEDS ORDERED: GUAIFENESIN SYRP 200 MG/10 ML UDC PO PRN (23:25)
[2018-10-10] MEDS: IPRATROPIUM/ALBUTEROL 0.5-2.5 MG/3 ML AMPUL NEB SCH ×4 (00:12→23:53)
[2018-10-10] MEDS: INSULIN LISPRO 100 UNIT/ML 3 ML VIAL SUBCUT SCH ×4 (00:55→17:31)
[2018-10-10] MEDS: FENTANYL CITRATE INJ/PF 100 MCG/2 ML AMPUL IV PRN ×6 (01:06→20:04)
[2018-10-10] MEDS: HEPARIN SOD (PORCINE) 5,000 UNIT/ML 1 ML VIAL SUBCUT SCH ×3 (05:07→22:15)
[2018-10-10] MEDS: PANTOPRAZOLE SODIUM 20 MG TABLET.DR PO SCH (05:07)
[2018-10-10 06:50] LABS: HEMATOCRIT 29.6 % (37.9-51.0); HEMOGLOBIN 9.5 g/dL (13.5-17.0); MEAN CORPUSCULAR VOLUME 97 fl (80-97); PLATELET COUNT 263 10^3/uL (150-450); RED BLOOD COUNT 3.06 10^6/uL (4.35-5.55)
--- NOTE | 2018-10-10 07:03 | PDOC PROGRESS REPORT ---
Subjective Progress Note for:: 10/10/18 Reason For Visit: HIP FRACTURE,ESRD 68-year-old white male with end-stage renal disease and congestive heart failure who fell at home and sustained a lot nondisplaced left intertrochanteric femur fracture identified by CT scan. Physical Exam Vital Signs: Temp Pulse Resp BP Pulse Ox 36.9 C 67 20 123/51 L 90 L 10/10/18 00:53 10/10/18 03:49 10/10/18 00:53 10/10/18 03:49 10/10/18 00:53 Intake & Output 10/08/18 10/09/18 10/10/18 06:59 06:59 06:59 Intake Total 2500 5580 Output Total 3000 4825 Balance -500 755 Weight 88.2 kg 94.8 kg Physical Exam: Patient lying in bed. He is alert, oriented, and appropriate. Is complaining of left shoulder pain. He states he is able to place his left hand behind his head but is very painful. General appearance: PRESENT: mild distress, well-developed, well-nourished Head exam: PRESENT: normocephalic Respiratory exam: PRESENT: unlabored Cardiovascular exam: PRESENT: RRR Pulses: PRESENT: +1 pedal pulses bilateral Vascular exam: PRESENT: normal capillary refill GI/Abdominal exam: PRESENT: soft Rectal exam: PRESENT: deferred Extremities exam: PRESENT: other - Leg lengths are equal. Limited passive range of motion of the left lower extremity is painful. Musculoskeletal exam: PRESENT: other - Patient is a painful active range of motion of the left shoulder. There is no abnormality of topical anatomy that I can detect. There is global tenderness to palpation. Distal neurovascular examination to the hand is intact. Neurological exam: PRESENT: alert, awake, oriented to person, oriented to place, oriented to time, oriented to situation. ABSENT: motor sensory deficit Psychiatric exam: PRESENT: appropriate affect, normal mood. ABSENT: homicidal ideation, suicidal ideation Skin exam: PRESENT: dry, intact, warm. ABSENT: cyanosis, rash Results Laboratory Results: 10/10/18 06:13 10/10/18 06:13 WBC 10.0 RBC 3.06 L Hgb 9.5 L Hct 29.6 L MCV 97 MCH 31.0 MCHC 32.0 RDW 18.0 H Plt Count 263 10/08/18 10/08/18 10/09/18 21:30 21:30 03:30 Creatine Kinase 78 51 L CK-MB (CK-2) 3.98 Troponin I 0.031 10/09/18 10/09/18 10/09/18 03:30 09:12 09:12 Creatine Kinase 56 CK-MB (CK-2) 3.52 3.00 Troponin I 0.034 0.038 Impressions: Hip X-Ray 10/08/18 00:00 IMPRESSION: No fracture identified. Lower Extremity CT 10/08/18 19:50 IMPRESSION: Acute nondisplaced left femoral intertrochanteric fracture. Chest X-Ray 10/09/18 00:00 IMPRESSION: No acute findings in the chest. Shoulder X-Ray 10/09/18 00:00 IMPRESSION: NEGATIVE STUDY OF THE LEFT SHOULDER. NO RADIOGRAPHIC EVIDENCE OF ACUTE INJURY. Status: Imported from PACS Assessment & Plan - Diagnosis (1) Nondisplaced intertrochanteric fracture of femur Qualifiers: Encounter type: initial encounter Fracture type: closed Laterality: left Qualified Code(s): S72.145A - Nondisplaced intertrochanteric fracture of left femur, initial encounter for closed fracture Is this a current diagnosis for this admission?: Yes Plan: 68-year-old white male with multiple medical comorbidities and now a nondisplaced left intertrochanteric femur fracture that would be best served with an open reduction internal fixation. This could potentially be performed under local MAC anesthesia, take approximately 25 minutes in duration, and allow the patient to be weightbearing as tolerated immediately postop. Procedure is potentially scheduled for noon on Sunday the . Anesthesia will evaluate the patient for preoperative clearance today. The presence of the left shoulder pain and rotator cuff arthropathy will also be a limitation of mobilizing the patient. (2) Rotator cuff arthropathy of left shoulder Is this a current diagnosis for this admission?: Yes Plan: Patient radiographically has a left rotator cuff arthropathy clinically there seems to be an acute on chronic basis to his left shoulder pain. At this point I do not think any intervention for the shoulder other than potentially a subacromial injection is appropriate. There will be some ramifications of the shoulder issues when attempting to mobilize the patient postoperatively. - Time Time Spent with patient: 15-24 minutes Anticipated discharge: SNF Within: Other
[2018-10-10 07:10] LABS: ANION GAP 12 (5-19); BLOOD UREA NITROGEN 32 mg/dL (7-20); CALCIUM 7.4 mg/dL (8.4-10.2); CARBON DIOXIDE 25 mmol/L (22-30); CHLORIDE 98 mmol/L (98-107); GLUCOSE 243 mg/dL (75-110); POTASSIUM 4.2 mmol/L (3.6-5.0)
--- NOTE | 2018-10-10 09:05 | EKG REPORT ---
SEVERITY:- ABNORMAL ECG - SINUS RHYTHM BORDERLINE PROLONGED QT INTERVAL NONSPECIFIC LATERAL ST-T CHANGES : Confirmed by: Yaya Pike MD 10-Oct-2018 09:04:43
[2018-10-10] MEDS: ISOSORBIDE MONONITRATE 30 MG TAB.ER.24H PO SCH (10:06)
[2018-10-10] MEDS: FOLIC ACID/VITAMIN B COMP W-C CAPSULE PO SCH (10:06)
[2018-10-10] MEDS: FINASTERIDE 5 MG TABLET PO SCH (10:06)
[2018-10-10] MEDS: ARIPIPRAZOLE 2 MG TABLET PO SCH (10:06)
[2018-10-10] MEDS: ESCITALOPRAM OXALATE 10 MG TABLET PO SCH (10:07)
[2018-10-10] MEDS: CARVEDILOL 12.5 MG TABLET PO SCH ×2 (10:07→22:23)
[2018-10-10] MEDS: DOCUSATE SODIUM 100 MG CAPSULE PO SCH ×3 (10:07→17:31)
--- NOTE | 2018-10-10 16:12 | PDOC PROGRESS REPORT ---
Subjective Progress Note for:: 10/10/18 Subjective:: CELIO WAGNER is a 67 year old male with a past medical history of congestive heart failure, coronary artery disease, COPD, diabetes, hypertension, blindness and end-stage renal failure on peritoneal dialysis who was admitted 10/08/2018 for a nondisplaced intertrochanteric femur fracture secondary to mechanical fall at home. Patient was seen on morning rounds. He is found resting in bed comfortably supplemental oxygen via nasal cannula. The patient reports that he does use Home O2. He denies any chest pain, palpitations, dizziness, headaches, shortness of breath immediately prior to his fall. He reports that he simply lost his balance. At this time he reports left hip pain and requests additional pain medication. He denies current fever, chills, chest pain, palpitations, dyspnea, orthopnea, cough, abdominal pain, nausea vomiting and diarrhea. He has no other questions or concerns at this time. No concerns per nursing. Reason For Visit: HIP FRACTURE,ESRD Physical Exam Vital Signs: Temp Pulse Resp BP Pulse Ox 97.4 F 72 18 122/44 L 90 L 10/10/18 14:54 10/10/18 14:54 10/10/18 14:54 10/10/18 14:54 10/10/18 14:54 Intake & Output 10/09/18 10/10/18 10/11/18 06:59 06:59 06:59 Intake Total 2500 5580 2500 Output Total 3000 4875 2400 Balance -500 705 100 Weight 88.2 kg 94.7 kg 94.5 kg General appearance: PRESENT: no acute distress, cooperative - Very pleasant, well-developed, well-nourished Head exam: PRESENT: atraumatic, normocephalic Eye exam: PRESENT: conjunctiva pink, EOMI, PERRLA. ABSENT: scleral icterus Ear exam: PRESENT: normal external ear exam Mouth exam: PRESENT: moist, tongue midline Neck exam: ABSENT: carotid bruit, JVD, lymphadenopathy, thyromegaly Respiratory exam: PRESENT: clear to auscultation yair, symmetrical, unlabored. ABSENT: rales, rhonchi, wheezes Cardiovascular exam: PRESENT: RRR, +S1, +S2. ABSENT: diastolic murmur, rubs, systolic murmur Pulses: PRESENT: normal dorsalis pedis pul Vascular exam: PRESENT: normal capillary refill GI/Abdominal exam: PRESENT: normal bowel sounds, soft. ABSENT: distended, guar ding, mass, organolmegaly, rebound, tenderness Rectal exam: PRESENT: deferred Extremities exam: PRESENT: full ROM. ABSENT: calf tenderness, clubbing, pedal edema Musculoskeletal exam: PRESENT: tenderness - LLE Neurological exam: PRESENT: alert, awake, oriented to person, oriented to place, oriented to time, oriented to situation, CN II-XII grossly intact. ABSENT: motor sensory deficit Psychiatric exam: PRESENT: appropriate affect, normal mood. ABSENT: homicidal ideation, suicidal ideation Skin exam: PRESENT: dry, intact, warm. ABSENT: cyanosis, rash Results Laboratory Results: 10/10/18 06:13 10/10/18 06:13 10/10/18 10/10/18 06:13 06:13 WBC 10.0 RBC 3.06 L Hgb 9.5 L Hct 29.6 L MCV 97 MCH 31.0 MCHC 32.0 RDW 18.0 H Plt Count 263 Sodium 135.2 L Potassium 4.2 Chloride 98 Carbon Dioxide 25 Anion Gap 12 BUN 32 H Creatinine 6.09 H Est GFR ( Amer) 11 L Est GFR (Non-Af Amer) 9 L Glucose 243 H Calcium 7.4 L 10/08/18 10/08/18 10/09/18 21:30 21:30 03:30 Creatine Kinase 78 51 L CK-MB (CK-2) 3.98 Troponin I 0.031 10/09/18 10/09/18 10/09/18 03:30 09:12 09:12 Creatine Kinase 56 CK-MB (CK-2) 3.52 3.00 Troponin I 0.034 0.038 Impressions: Hip X-Ray 10/08/18 00:00 IMPRESSION: No fracture identified. Lower Extremity CT 10/08/18 19:50 IMPRESSION: Acute nondisplaced left femoral intertrochanteric fracture. Chest X-Ray 10/09/18 00:00 IMPRESSION: No acute findings in the chest. Shoulder X-Ray 10/09/18 00:00 IMPRESSION: NEGATIVE STUDY OF THE LEFT SHOULDER. NO RADIOGRAPHIC EVIDENCE OF ACUTE INJURY. Assessment and Plan - Diagnosis (1) Nondisplaced intertrochanteric fracture of femur Qualifiers: Encounter type: initial encounter Fracture type: closed Laterality: left Qualified Code(s): S72.145A - Nondisplaced intertrochanteric fracture of left f dulce, initial encounter for closed fracture Is this a current diagnosis for this admission?: Yes Plan: Patient is admitted to the medical floor. Orthopedics has been consulted; plan for surgical repair 10/11/18; NPO after midnight We will defer postoperative DVT prophylaxis to their expertise. Patient in moderate risk for cardiovascular complication of orthopedic surgery given comorbidities of congestive heart failure, coronary artery disease and diabetes however no immediately reversible risk present justifying delay of surgery. Spoke with nephrology today; Dr. Sams indicates that the patient is cleared for surgery from her perspective. (2) Anemia in chronic kidney disease Is this a current diagnosis for this admission?: Yes Plan: At baseline; hemoglobin 11.7 on admission. Has trended down slightly. During his last admission his hemoglobin was stable at 8.5-9. We will type and screen with a.m. lab work in anticipation of possible need for transfusion in the perioperative period. Nephrology is consulted; will defer to their expertise. (3) CHF (congestive heart failure) Qualifiers: Heart failure type: unspecified Heart failure chronicity: chronic Qualified Code(s): I50.9 - Heart failure, unspecified Is this a current diagnosis for this admission?: Yes Plan: Stable and without exacerbation at this time. We will continue the patient's home medication regiment of carvedilol, isosorbide, atorvastatin and aspirin. Monitor daily weights. Observe closely for fluid volume overload in the postoperative period. (4) Chronic renal failure, stage 5 Is this a current diagnosis for this admission?: Yes Plan: Oliguric; receives peritoneal dialysis. Nephrology is consulted; management per their expertise. - Time Time Spent with patient: 15-24 minutes Medications reviewed and adjusted accordingly: Yes Anticipated discharge: SNF
--- NOTE | 2018-10-10 16:30 | PDOC PROGRESS REPORT ---
Subjective Progress Note for:: 10/10/18 Reason For Visit: HIP FRACTURE,ESRD pre op eval Physical Exam Vital Signs: Temp Pulse Resp BP Pulse Ox 36.3 C 72 18 122/44 L 90 L 10/10/18 14:54 10/10/18 14:54 10/10/18 14:54 10/10/18 14:54 10/10/18 14:54 Intake & Output 10/09/18 10/10/18 10/11/18 06:59 06:59 06:59 Intake Total 2500 5580 2500 Output Total 3000 4875 2400 Balance -500 705 100 Weight 88.2 kg 94.7 kg 94.5 kg Results Laboratory Results: 10/10/18 06:13 10/10/18 06:13 10/10/18 10/10/18 06:13 06:13 WBC 10.0 RBC 3.06 L Hgb 9.5 L Hct 29.6 L MCV 97 MCH 31.0 MCHC 32.0 RDW 18.0 H Plt Count 263 Sodium 135.2 L Potassium 4.2 Chloride 98 Carbon Dioxide 25 Anion Gap 12 BUN 32 H Creatinine 6.09 H Est GFR ( Amer) 11 L Est GFR (Non-Af Amer) 9 L Glucose 243 H Calcium 7.4 L 10/08/18 10/08/18 10/09/18 21:30 21:30 03:30 Creatine Kinase 78 51 L CK-MB (CK-2) 3.98 Troponin I 0.031 10/09/18 10/09/18 10/09/18 03:30 09:12 09:12 Creatine Kinase 56 CK-MB (CK-2) 3.52 3.00 Troponin I 0.034 0.038 Impressions: Hip X-Ray 10/08/18 00:00 IMPRESSION: No fracture identified. Lower Extremity CT 10/08/18 19:50 IMPRESSION: Acute nondisplaced left femoral intertrochanteric fracture. Chest X-Ray 10/09/18 00:00 IMPRESSION: No acute findings in the chest. Shoulder X-Ray 10/09/18 00:00 IMPRESSION: NEGATIVE STUDY OF THE LEFT SHOULDER. NO RADIOGRAPHIC EVIDENCE OF ACUTE INJURY. Assessment & Plan - Diagnosis (1) Nondisplaced intertrochanteric fracture of femur Qualifiers: Encounter type: initial encounter Fracture type: closed Laterality: left Qualified Code(s): S72.145A - Nondisplaced intertrochanteric fracture of left femur, initial encounter for closed fracture Is this a current diagnosis for this admission?: Yes Plan: discussed the case with Dr Medina who has requested cardiac clearance. A cardiqac consult has been ordered. Surgical date pending cardiac clearance (2) Rotator cuff arthropathy of left shoulder Is this a current diagnosis for this admission?: Yes
--- NOTE | 2018-10-10 19:23 | PDOC PROGRESS REPORT ---
Subjective Progress Note for:: 10/10/18 Subjective:: Patient is doing fine except for hip pain. He is a scheduled for surgery tomorrow. His peritoneal dialysis regimen is currently doing fine except that there is not much ultrafiltration as 1.5% solution is being used due to relatively low blood pressure after pain medications being given. Reason For Visit: HIP FRACTURE,ESRD Physical Exam Vital Signs: Temp Pulse Resp BP Pulse Ox 98.1 F 78 20 114/44 L 92 10/10/18 08:36 10/10/18 08:36 10/10/18 08:36 10/10/18 08:36 10/10/18 08:36 Intake & Output 10/09/18 10/10/18 10/11/18 06:59 06:59 06:59 Intake Total 2500 5580 Output Total 3000 4875 Balance -500 705 Weight 88.2 kg 94.7 kg Exam: General appearance: PRESENT: no acute distress, cooperative, well-developed, well-nourished Head exam: PRESENT: atraumatic, normocephalic Eye exam: PRESENT: conjunctiva slightly pale, PERRLA. ABSENT: scleral icterus Neck exam: ABSENT: JVD Respiratory exam: PRESENT: Normal breath sounds. ABSENT: crackles, rales, rhonchi, unlabored, wheezes Cardiovascular exam: PRESENT: Regular rate rhythm -+S1, +S2. ABSENT: diastolic murmur, systolic murmur GI/Abdominal exam: PRESENT: normal bowel sounds, soft. ABSENT: guarding, mass, tenderness Extremities exam: ABSENT: No edema Neurological exam: PRESENT: alert, awake, oriented to person, place and time. Skin exam: PRESENT: dry, warm, Results Laboratory Results: 10/10/18 06:13 10/10/18 06:13 10/10/18 10/10/18 06:13 06:13 WBC 10.0 RBC 3.06 L Hgb 9.5 L Hct 29.6 L MCV 97 MCH 31.0 MCHC 32.0 RDW 18.0 H Plt Count 263 Sodium 135.2 L Potassium 4.2 Chloride 98 Carbon Dioxide 25 Anion Gap 12 BUN 32 H Creatinine 6.09 H Est GFR ( Amer) 11 L Est GFR (Non-Af Amer) 9 L Glucose 243 H Calcium 7.4 L 10/08/18 10/08/18 10/09/18 21:30 21:30 03:30 Creatine Kinase 78 51 L CK-MB (CK-2) 3.98 Troponin I 0.031 10/09/18 10/09/18 10/09/18 03:30 09:12 09:12 Creatine Kinase 56 CK-MB (CK-2) 3.52 3.00 Troponin I 0.034 0.038 Impressions: Hip X-Ray 10/08/18 00:00 IMPRESSION: No fracture identified. Lower Extremity CT 10/08/18 19:50 IMPRESSION: Acute nondisplaced left femoral intertrochanteric fracture. Chest X-Ray 10/09/18 00:00 IMPRESSION: No acute findings in the chest. Shoulder X-Ray 10/09/18 00:00 IMPRESSION: NEGATIVE STUDY OF THE LEFT SHOULDER. NO RADIOGRAPHIC EVIDENCE OF ACUTE INJURY. Assessment & Plan - Diagnosis (1) Nondisplaced intertrochanteric fracture of femur Qualifiers: Encounter type: initial encounter Fracture type: closed Laterality: left Qualified Code(s): S72.145A - Nondisplaced intertrochanteric fracture of left femur, initial encounter for closed fracture Is this a current diagnosis for this admission?: Yes Plan: For surgery tomorrow. On pain medications. (2) End-stage renal disease on peritoneal dialysis Is this a current diagnosis for this admission?: Yes Plan: Continue current peritoneal dialysis regimen using 1.5 and 2.5% solution depending on the blood pressure. (3) Anemia in chronic kidney disease Is this a current diagnosis for this admission?: Yes Plan: We will give her Retacrit with 10,000 units subcutaneously x1 dose today. (4) Diabetes mellitus type 2 in obese Is this a current diagnosis for this admission?: Yes (5) HTN (hypertension) Is this a current diagnosis for this admission?: Yes Plan: Relatively low. - Time Time with patient: 15-25 minutes
[2018-10-10] MEDS ORDERED: EPOETIN ALFA-EPBX 10,000 UNIT/ML VIAL (RENAL) SUBCUT ONE (20:30)
[2018-10-10] MEDS: FAMOTIDINE 20 MG TABLET PO SCH (22:18)
[2018-10-10] MEDS: ATORVASTATIN CALCIUM 80 MG TABLET PO SCH (22:18)
[2018-10-10] MEDS: DOXAZOSIN MESYLATE 2 MG TABLET PO SCH (22:24)
[2018-10-11] MEDS ORDERED: NORMAL SALINE 1000 ML 1,000 ML IV PRN (00:01)
[2018-10-11] MEDS: INSULIN LISPRO 100 UNIT/ML 3 ML VIAL SUBCUT SCH ×5 (01:14→21:46)
[2018-10-11] MEDS: MORPHINE SULFATE 10 MG/ML INJ IV PRN ×2 (01:27→08:53)
[2018-10-11] MEDS ORDERED: TRANEXAMIC ACID INJ/PF 1,000 MG/10 ML SDV IV PRN (05:00)
[2018-10-11] MEDS ORDERED: CEFAZOLIN SODIUM 2 GM in DEXTROSE 5%-WATER 100 ML IV PRN (05:00)
[2018-10-11 05:12] LABS: HEMATOCRIT 28.8 % (37.9-51.0); HEMOGLOBIN 9.3 g/dL (13.5-17.0); MEAN CORPUSCULAR HEMOGLOBIN 31.2 pg (27.0-33.4); MEAN CORPUSCULAR HGB CONC 32.4 g/dL (32.0-36.0); MEAN CORPUSCULAR VOLUME 96 fl (80-97); PLATELET COUNT 249 10^3/uL (150-450); RED BLOOD COUNT 2.99 10^6/uL (4.35-5.55); WHITE BLOOD COUNT 8.9 10^3/uL (4.0-10.5)
[2018-10-11] MEDS: HEPARIN SOD (PORCINE) 5,000 UNIT/ML 1 ML VIAL SUBCUT SCH ×3 (05:14→21:47)
[2018-10-11] MEDS: PANTOPRAZOLE SODIUM 20 MG TABLET.DR PO SCH (05:31)
[2018-10-11 05:32] LABS: ANION GAP 12 (5-19); BLOOD UREA NITROGEN 34 mg/dL (7-20); CALCIUM 7.5 mg/dL (8.4-10.2); CARBON DIOXIDE 26 mmol/L (22-30); CHLORIDE 96 mmol/L (98-107); GLUCOSE 263 mg/dL (75-110); POTASSIUM 4.1 mmol/L (3.6-5.0)
[2018-10-11] MEDS: IPRATROPIUM/ALBUTEROL 0.5-2.5 MG/3 ML AMPUL NEB SCH ×3 (07:50→23:38)
[2018-10-11] MEDS ORDERED: PROPOFOL INJ 200 MG/20 ML VIAL IV ONE (10:14)
[2018-10-11] MEDS ORDERED: MIDAZOLAM 2 MG/2 ML INJ ONE (10:14)
[2018-10-11] MEDS ORDERED: FENTANYL CITRATE INJ/PF 100 MCG/2 ML AMPUL ONE (10:14)
[2018-10-11] MEDS ORDERED: DEXAMETHASONE SOD PHOSPHATE INJ 4 MG/1 ML VIAL ONE (10:14)
[2018-10-11] MEDS ORDERED: ONDANSETRON HCL INJ/PF 4 MG/2 ML SDV ONE (10:14)
[2018-10-11] MEDS ORDERED: EPHEDRINE SULFATE INJ 50 MG/1 ML AMPULE ONE (10:15)
--- NOTE | 2018-10-11 10:19 | Progress Note ---
Provider Note Provider Note: PRELIMINARY CARDIOLOGY NOTE: Patient interviewed and examined. Formal consult to follow. The patient is EKG x-ray and labs were reviewed. The patient EKG shows minor nonspecific T wave flattening in the lateral leads. The patient's echocardiogram is a suboptimal study, with limited views with the apical anterio r, apical inferior, the basal anterior, and basal inferior bradford not visualized. In the remaining views the LV ejection fraction is normal. IMPRESSION/RECOMMENDATION: 1. Accidental fall and status post fracture of left hip for surgical repair. 2. Coronary artery disease. History of remote NV and history of remote stents. With no anginal symptoms since a long time. The patient has no anginal symptoms or symptoms of heart failure in spite of end-stage renal disease, and coronary artery disease. There is no history of arrhythmias. 3. Hypertension. 4. Diabetes mellitus 5. End-stage renal disease on peritoneal dialysis. 6. Preoperative cardiac risk assessment. ASSESSMENT: The patient will be an acceptable risk for this procedure. Perioperatively and postoperatively would monitor the patient heart rhythm on the monitor. Will get serial EKGs and enzymes. Will follow the patient. The small risk of NV stroke arrhythmia heart failure and even have been discussed with the patient detail.
[2018-10-11] MEDS ORDERED: BUPIVACAINE HCL 0.5%-EPI 1:200000 INJ/PF 30 ML VIAL ONE (10:44)
[2018-10-11] MEDS ORDERED: TRANEXAMIC ACID INJ/PF 1,000 MG/10 ML SDV IV ONE ×2 (11:03→13:39)
[2018-10-11] MEDS ORDERED: KETAMINE HCL INJ 500 MG/10 ML VIAL ONE (11:08)
--- NOTE | 2018-10-11 11:54 | PDOC PROGRESS REPORT ---
Subjective Progress Note for:: 10/11/18 Subjective:: I saw the patient before he goes to his hip surgery today. He did not have any complaints. In terms of his peritoneal dialysis you are still just using the 1.5% and a 2.5% solutions because of relatively low blood pressures. We are not getting much ultrafiltration in fact the patient is +1 L on his intake and output balance. The patient is not shortness of short of breath. Reason For Visit: HIP FRACTURE,ESRD Physical Exam Vital Signs: Temp Pulse Resp BP Pulse Ox 97.9 F 72 22 H 122/46 L 92 10/11/18 08:25 10/11/18 08:25 10/11/18 08:25 10/11/18 08:25 10/11/18 08:25 Intake & Output 10/10/18 10/11/18 10/12/18 06:59 06:59 06:59 Intake Total 5580 8030 2500 Output Total 4875 6965 2400 Balance 705 1065 100 Weight 94.7 kg 96.2 kg 97 kg Exam: General appearance: PRESENT: no acute distress, cooperative, well-developed, well-nourished Head exam: PRESENT: atraumatic, normocephalic Eye exam: PRESENT: conjunctiva pale, PERRLA. ABSENT: scleral icterus Neck exam: ABSENT: JVD Respiratory exam: PRESENT: Diminished breath sounds. ABSENT: crackles, rales, rhonchi, unlabored, wheezes Cardiovascular exam: PRESENT: Regular rate rhythm -+S1, +S2. ABSENT: diastolic murmur, systolic murmur GI/Abdominal exam: PRESENT: normal bowel sounds, soft. ABSENT: guarding, mass, tenderness Extremities exam: ABSENT: No edema Neurological exam: PRESENT: alert, awake, oriented to person, place and time. Skin exam: PRESENT: dry, warm, Results Laboratory Results: 10/11/18 04:04 10/11/18 04:04 10/11/18 10/11/18 10/11/18 04:04 04:04 04:04 WBC 8.9 RBC 2.99 L Hgb 9.3 L Hct 28.8 L MCV 96 MCH 31.2 MCHC 32.4 RDW 18.0 H Plt Count 249 Sodium 133.5 L Potassium 4.1 Chloride 96 L Carbon Dioxide 26 Anion Gap 12 BUN 34 H Creatinine 6.60 H Est GFR ( Amer) 10 L Est GFR (Non-Af Amer) 8 L Glucose 263 H Calcium 7.5 L Blood Type O NEGATIVE Antibody Screen NEGATIVE 10/08/18 10/08/18 10/09/18 21:30 21:30 03:30 Creatine Kinase 78 51 L CK-MB (CK-2) 3.98 Troponin I 0.031 10/09/18 10/09/18 10/09/18 03:30 09:12 09:12 Creatine Kinase 56 CK-MB (CK-2) 3.52 3.00 Troponin I 0.034 0.038 Impressions: Hip X-Ray 10/08/18 00:00 IMPRESSION: No fracture identified. Lower Extremity CT 10/08/18 19:50 IMPRESSION: Acute nondisplaced left femoral intertrochanteric fracture. Chest X-Ray 10/09/18 00:00 IMPRESSION: No acute findings in the chest. Shoulder X-Ray 10/09/18 00:00 IMPRESSION: NEGATIVE STUDY OF THE LEFT SHOULDER. NO RADIOGRAPHIC EVIDENCE OF ACUTE INJURY. Assessment & Plan - Diagnosis (1) Nondisplaced intertrochanteric fracture of femur Qualifiers: Encounter type: initial encounter Fracture type: closed Laterality: left Qualified Code(s): S72.145A - Nondisplaced intertrochanteric fracture of left femur, initial encounter for closed fracture Is this a current diagnosis for this admission?: Yes Plan: For surgery today. On pain medications. (2) End-stage renal disease on peritoneal dialysis Is this a current diagnosis for this admission?: Yes Plan: Continue current peritoneal dialysis regimen using 1.5 and 2.5% solution depending on the blood pressure. Once the patient's blood pressure is better we may be able to use 4.25% but will hold off for now. (3) Anemia in chronic kidney disease Is this a current diagnosis for this admission?: Yes Plan: Patient received Retacrit with 10,000 units subcutaneously x1 dose yesterday. (4) Diabetes mellitus type 2 in obese Is this a current diagnosis for this admission?: Yes (5) HTN (hypertension) Is this a current diagnosis for this admission?: Yes Plan: Relatively low. Hold Cardura until the blood pressure gets better. - Time Time with patient: 15-25 minutes
[2018-10-11] MEDS ORDERED: PROMETHAZINE HCL INJ 25 MG/1 ML VIAL IV PRN ×2 (11:55)
[2018-10-11] MEDS ORDERED: FENTANYL CITRATE INJ/PF 100 MCG/2 ML AMPUL IV PRN ×3 (11:55)
[2018-10-11] MEDS ORDERED: ONDANSETRON HCL INJ/PF 4 MG/2 ML SDV IV PRN (11:55)
[2018-10-11] MEDS ORDERED: MORPHINE SULFATE 10 MG/ML INJ IV PRN (11:55)
[2018-10-11] MEDS ORDERED: MEPERIDINE HCL/PF INJ 25 MG/1 ML DISP.SYRIN IV PRN (11:55)
[2018-10-11] MEDS ORDERED: DIPHENHYDRAMINE HCL 50 MG/ML VIAL IV PRN (11:55)
--- NOTE | 2018-10-11 12:14 | XCELERA REPORT ---
[address] [address] Transthoracic Echocardiogram Report Name: CELIO WAGNER Age: 68 yrs Gender: Male : 1950 Patient Status: Inpatient Patient Location: [address] [place] [address] Study Date: 10/10/2018 07:02 PM Procedure: A two-dimensional transthoracic echocardiogram with color flow and Doppler was performed. The study was technically difficult with many images being suboptimal in quality. Images were not obtained from all of the standard acoustic windows due to the limited scope of the study. Reason For Study: cardiac clearence for surgery, history of CHF History: cardiac clearence for surgery, history of CHF. Ordering Physician: MARIE YOUNG Performed By: Angella Chen Interpretation Summary The left ventricle is normal in size. There is normal left ventricular wall thickness. No True apical 2 chamber views obtained.Hence cannot comment on the apical anterior , the basal anterior, the basal inferior and apical inferior bradford.The mid anterior , the mid inferior and the rest of the LV bradford contract normally. . LVEF is normal and is greater than 60% in the limited views. Doppler measurements suggest impaired left ventricular relaxation, which is associated with grade I/IV or mild diastolic dysfunction Cannt assess ASD ,VSD , or PFO. Not visualised. Not visualised. There is no evidence of mitral valve prolapse. There is no vegetation seen on the mitral valve. There is no mitral valve stenosis. There is no mitral regurgitation noted. There is no aortic valvular vegetation. There is mild aortic stenosis No hemodynamically significant valvular aortic stenosis. There is no LVOT obstruction. No aortic regurgitation is present. There is a trace amount of tricuspid regurgitation No significant pulmonary hypertension.RVSP is 33 mm of Hg , with RA mean of 10. There is no pulmonic valvular regurgitation. The aortic root is normal size. The inferior vena cava was not visualized There is no pericardial effusion. MMode/2D Measurements & Calculations RVDd: 2.4 cm LVIDd: 5.8 cm FS: 33.7 % Ao root diam: 2.8 cm IVSd: 0.94 cm LVIDs: 3.9 cm EDV(Teich): 168.3 ml Ao root area: 6.3 cm2 LVPWd: 1.0 cm ESV(Teich): 64.3 ml EF(Teich): 61.8 % LA dimension: 3.8 cm Doppler Measurements & Calculations MV E max charanjit: MV P1/2t max charanjit: Ao V2 max: LV V1 max P.5 cm/sec 155.6 cm/sec 230.8 cm/sec 5.3 mmHg MV A max charanjit: MV P1/2t: 47.5 msec Ao max PG: LV V1 max: 126.1 cm/sec 21.3 mmHg 115.0 cm/sec MV E/A: 0.99 MVA(P1/2t): 4.6 cm2 MV dec slope: 959.5 cm/sec2 MV dec time: 0.13 sec PA V2 max: TR max charanjit: MV P1/2t-pr_phl: 109.7 cm/sec 240.1 cm/sec 47.5 msec PA max P.8 mmHgTR max P.1 mmHg Left Ventricle The left ventricle is normal in size. There is normal left ventricular wall thickness. No True apical 2 chamber views obtained.Hence cannot comment on the apical anterior , the basal anterior, the basal inferior and apical inferior bradford.The mid anterior , the mid inferior and the rest of the LV bradford contract normally. . LVEF is normal and is greater than 60% in the limited views. Doppler measurements suggest impaired left ventricular relaxation, which is associated with grade I/IV or mild diastolic dysfunction. Cannt assess ASD ,VSD , or PFO. Right Ventricle Not visualised. Atria Not visualised. The left atrial size is normal. Mitral Valve There is mild to moderate mitral annular calcification. There is no evidence of mitral valve prolapse. There is no vegetation seen on the mitral valve. There is no mitral valve stenosis. There is no mitral regurgitation noted. Aortic Valve There is no aortic valvular vegetation. There is mild aortic stenosis. No hemodynamically significant valvular aortic stenosis. There is no LVOT obstruction. No aortic regurgitation is present. Tricuspid Valve There is no tricuspid stenosis. There is a trace amount of tricuspid regurgitation. No significant pulmonary hypertension.RVSP is 33 mm of Hg , with RA mean of 10. Pulmonic Valve There is no pulmonic valvular stenosis. There is no pulmonic valvular regurgitation. Great Vessels The aortic root is normal size. The inferior vena cava was not visualized. Effusions There is no pericardial effusion. : MARIE YOUNG > Marie Young
--- NOTE | 2018-10-11 12:27 | Operative Report ---
Operative Report DATE OF SURGERY: 10/11/18 PREOPERATIVE DIAGNOSIS: Left intertrochanteric femur fracture OPERATION: Open reduction internal fixation left intertrochanteric femur fracture SURGEON: NACHO NICHOLE ESTIMATED BLOOD LOSS: 25 PROCEDURE: With the patient supine on the fracture table left lower extremity is manipulated and checked with fluoroscopy to make sure there have been no displacement of the intertrochanteric femur fracture which there was not. Subsequently stripped the limb was prepped and draped in a sterile fashion.. A pin is placed percutaneously through the greater trochanter down into the prox imal femoral metadiaphysis. A combined reamer was used to fashion a cortical opening. This is removed and a ball-tipped guide was placed down the femur. Femoral length is measured to be 380 mm. Subsequently a Steele gamma 3 11 mm x 380 mm x 130 degree nail was advanced over the ball-tipped guide jose to an appropriate depth. Subsequently 100 mm proximal interlock is placed. A 50 mm distal interlock was placed. The instrumentation was removed. Fracture reduction and hardware placement checked fluoroscopically felt to be adequate. The wounds irrigated and closed using Vicryl followed by fatimah. A sterile compressive dressing was applied. The patient's return to the PACU in satisfactory vision.
[2018-10-11] MEDS ORDERED: ACETAMINOPHEN 325 MG TABLET PO PRN (13:11)
[2018-10-11] MEDS: DOCUSATE SODIUM 100 MG CAPSULE PO SCH ×2 (14:55→17:55)
[2018-10-11] MEDS: CARVEDILOL 12.5 MG TABLET PO SCH ×2 (14:55→21:47)
[2018-10-11] MEDS ORDERED: RINGERS SOLUTION,LACTATED 1,000 ML IV PRN (15:00)
[2018-10-11] MEDS: ESCITALOPRAM OXALATE 10 MG TABLET PO SCH (15:13)
[2018-10-11] MEDS: ISOSORBIDE MONONITRATE 30 MG TAB.ER.24H PO SCH (15:13)
[2018-10-11] MEDS: ARIPIPRAZOLE 2 MG TABLET PO SCH (15:13)
[2018-10-11] MEDS: FINASTERIDE 5 MG TABLET PO SCH (15:13)
[2018-10-11] MEDS: FOLIC ACID/VITAMIN B COMP W-C CAPSULE PO SCH (15:13)
[2018-10-11] MEDS: FENTANYL CITRATE INJ/PF 100 MCG/2 ML AMPUL IV PRN ×4 (15:50→22:31)
--- NOTE | 2018-10-11 16:03 | RADIOLOGY REPORT (SQ) ---
EXAM DESCRIPTION: HIP IN OPERATING RM COMPLETED DATE/TIME: 10/11/2018 3:38 pm REASON FOR STUDY: ORIF LEFT HIP ASST WITH FLUORO IN OR COMPARISON: Left hip two views 10/08/2018 FLUOROSCOPY TIME: 1.4 minutes 7 digital C-arm images saved to PACS. TECHNIQUE: Intra-operative images acquired during surgical procedure to evaluate progress. NUMBER OF IMAGES: 7 digital C-arm images LIMITATIONS: None. FINDINGS: Intra procedural imaging and fluoro during ORIF of a left intertrochanteric hip fracture w ith a long intramedullary nail. Please see the operative report for further details IMPRESSION: Intra procedural imaging and fluoro COMMENT: Quality ID [id number]: Final reports for procedures using fluoroscopy that document radiation exp osure indices, or exposure time and number of fluorographic images (if radiation exposure indices are not available) Please consult full operative report of the attending physician for description of the procedure. TECHNICAL DOCUMENTATION: JOB ID: [id number] [employer]- All Rights Reserved Reading location - IP/workstation name: [email or web address]
[2018-10-11] MEDS: CALCIUM CARBONATE 500 MG TABLET PO SCH (17:55)
--- NOTE | 2018-10-11 18:16 | PDOC PROGRESS REPORT ---
Subjective Progress Note for:: 10/11/18 Subjective:: CELIO WAGNER is a 67 year old male with a past medical history of congestive heart failure, coronary artery disease, COPD, diabetes, hypertension, blindness and end-stage renal failure on peritoneal dialysis who was admitted 10/08/2018 for a nondisplaced intertrochanteric femur fracture secondary to mechanical fall at home. Patient was seen on afternoon rounds following op[erative repair of femur fx. He is found resting in bed comfortably supplemental oxygen via nasal cannula. He reports that he is feeling well, just tired. He denies current fever, chills, chest pain, palpitations, dyspnea, orthopnea, cough, abdominal pain, nausea vomiting and diarrhea. He denies hip pain at present. He has no other questions or concerns at this time. No concerns per nursing. Reason For Visit: HIP FRACTURE,ESRD Physical Exam Vital Signs: Temp Pulse Resp BP Pulse Ox 97.3 F 80 17 115/93 H 95 10/11/18 18:00 10/11/18 18:00 10/11/18 18:00 10/11/18 18:00 10/11/18 18:00 Intake & Output 10/10/18 10/11/18 10/12/18 06:59 06:59 06:59 Intake Total 5580 8030 6501 Output Total 4840 6965 4435 Balance 705 1065 2066 Weight 94.7 kg 96.2 kg 96.2 kg General appearance: PRESENT: no acute distress, cooperative - pleasant, obese, well-developed, well-nourished Head exam: PRESENT: atraumatic, normocephalic Eye exam: PRESENT: conjunctiva pink, EOMI, PERRLA. ABSENT: scleral icterus Ear exam: PRESENT: normal external ear exam Mouth exam: PRESENT: moist, tongue midline Neck exam: ABSENT: carotid bruit, JVD, lymphadenopathy, thyromegaly Respiratory exam: PRESENT: clear to auscultation yair, symmetrical, unlabored. ABSENT: rales, rhonchi, wheezes Cardiovascular exam: PRESENT: RRR, +S1, +S2. ABSENT: diastolic murmur, rubs, systolic murmur Pulses: PRESENT: normal dorsalis pedis pul Vascular exam: PRESENT: normal capillary refill GI/Abdominal exam: PRESENT: normal bowel sounds, soft. ABSENT: distended, guarding, mass, organolmegaly, rebound, tenderness Rectal exam: PRESENT: deferred Extremities exam: PRESENT: tenderness - LLE/Hip. ABSENT: calf tenderness, clubbing, pedal edema Neurological exam: PRESENT: alert, awake, oriented to person, oriented to place, oriented to time, oriented to situation, CN II-XII grossly intact. ABSENT: motor sensory deficit Psychiatric exam: PRESENT: appropriate affect, normal mood. ABSENT: homicidal ideation, suicidal ideation Skin exam: PRESENT: dry, intact, warm. ABSENT: cyanosis, rash Results Laboratory Results: 10/11/18 04:04 10/11/18 04:04 10/11/18 10/11/18 10/11/18 04:04 04:04 04:04 WBC 8.9 RBC 2.99 L Hgb 9.3 L Hct 28.8 L MCV 96 MCH 31.2 MCHC 32.4 RDW 18.0 H Plt Count 249 Sodium 133.5 L Potassium 4.1 Chloride 96 L Carbon Dioxide 26 Anion Gap 12 BUN 34 H Creatinine 6.60 H Est GFR ( Amer) 10 L Est GFR (Non-Af Amer) 8 L Glucose 263 H Calcium 7.5 L Blood Type O NEGATIVE Antibody Screen NEGATIVE 10/08/18 10/08/18 10/09/18 21:30 21:30 03:30 Creatine Kinase 78 51 L CK-MB (CK-2) 3.98 Troponin I 0.031 10/09/18 10/09/18 10/09/18 03:30 09:12 09:12 Creatine Kinase 56 CK-MB (CK-2) 3.52 3.00 Troponin I 0.034 0.038 Impressions: Lower Extremity CT 10/08/18 19:50 IMPRESSION: Acute nondisplaced left femoral intertrochanteric fracture. Chest X-Ray 10/09/18 00:00 IMPRESSION: No acute findings in the chest. Shoulder X-Ray 10/09/18 00:00 IMPRESSION: NEGATIVE STUDY OF THE LEFT SHOULDER. NO RADIOGRAPHIC EVIDENCE OF ACUTE INJURY. Hip X-Ray 10/11/18 00:00 IMPRESSION: Intra procedural imaging and fluoro Assessment and Plan - Diagnosis (1) Nondisplaced intertrochanteric fracture of femur Qualifiers: Encounter type: initial encounter Fracture type: closed Laterality: left Qualified Code(s): S72.145A - Nondisplaced intertrochanteric fracture of left femur, initial encounter for closed fracture Is this a current diagnosis for this admission?: Yes Plan: Now s/p ORIF by Dr. Shelley Patient is admitted to the medical floor. We will defer postoperative DVT prophylaxis to their expertise. Analgesics as needed. PT/OT once cleared by Ortho. Discharge planning consulted for placement (2) Anemia in chronic kidney disease Is this a current diagnosis for this admission?: Yes Plan: At baseline; hemoglobin 11.7 on admission. Has trended down slightly but stable at 9.3 During his last admission his hemoglobin was stable at 8.5-9. Nephrology is consulted; will defer to their expertise. Has received erythropoietin this admission. (3) CHF (congestive heart failure) Qualifiers: Heart failure type: unspecified Heart failure chronicity: chronic Qualified Code(s): I50.9 - Heart failure, unspecified Is this a current diagnosis for this admission?: Yes Plan: Stable and without exacerbation at this time. We will continue the patient's home medication regiment of carvedilol, isosorbide, atorvastatin and aspirin. Monitor daily weights. Observe closely for fluid volume overload in the postoperative period. (4) Chronic renal failure, stage 5 Is this a current diagnosis for this admission?: Yes Plan: Oliguric; receives peritoneal dialysis. Nephrology is consulted; management per their expertise. - Time Time Spent with patient: 15-24 minutes Medications reviewed and adjusted accordingly: Yes Anticipated discharge: SNF Within: within 72 hours
[2018-10-11] MEDS: CEFAZOLIN 1 GM/D5W RTU 1 GM/50 ML RTUPB IV SCH (19:45)
[2018-10-11] MEDS: ATORVASTATIN CALCIUM 80 MG TABLET PO SCH (21:45)
[2018-10-11] MEDS: FAMOTIDINE 20 MG TABLET PO SCH (21:47)
[2018-10-12] MEDS: FENTANYL CITRATE INJ/PF 100 MCG/2 ML AMPUL IV PRN ×4 (00:50→11:03)
[2018-10-12] MEDS: CEFAZOLIN 1 GM/D5W RTU 1 GM/50 ML RTUPB IV SCH (03:04)
[2018-10-12 05:20] LABS: HEMATOCRIT 31.2 % (37.9-51.0); HEMOGLOBIN 9.9 g/dL (13.5-17.0); MEAN CORPUSCULAR HEMOGLOBIN 30.7 pg (27.0-33.4); MEAN CORPUSCULAR HGB CONC 31.7 g/dL (32.0-36.0); MEAN CORPUSCULAR VOLUME 97 fl (80-97); PLATELET COUNT 270 10^3/uL (150-450); RED BLOOD COUNT 3.22 10^6/uL (4.35-5.55); RED CELL DISTRIBUTION WIDTH 17.9 % (11.5-14.0); WHITE BLOOD COUNT 12.1 10^3/uL (4.0-10.5)
[2018-10-12 05:48] LABS: ANION GAP 13 (5-19); BLOOD UREA NITROGEN 37 mg/dL (7-20); CALCIUM 8.3 mg/dL (8.4-10.2); CARBON DIOXIDE 27 mmol/L (22-30); CHLORIDE 94 mmol/L (98-107); GLUCOSE 293 mg/dL (75-110); POTASSIUM 4.6 mmol/L (3.6-5.0)
[2018-10-12] MEDS: HEPARIN SOD (PORCINE) 5,000 UNIT/ML 1 ML VIAL SUBCUT SCH ×3 (06:06→21:49)
[2018-10-12] MEDS: PANTOPRAZOLE SODIUM 20 MG TABLET.DR PO SCH (06:06)
--- NOTE | 2018-10-12 07:29 | PDOC PROGRESS REPORT ---
Subjective Progress Note for:: 10/12/18 Reason For Visit: HIP FRACTURE,ESRD 68-year-old white male now postop day 1 status post open reduction internal fixation of a left intratrochanteric femur fracture Physical Exam Vital Signs: Temp Pulse Resp BP Pulse Ox 36.3 C 71 16 107/51 L 92 10/12/18 00:00 10/12/18 03:47 10/12/18 00:00 10/12/18 03:47 10/12/18 00:00 Intake & Output 10/11/18 10/12/18 10/13/18 06:59 06:59 06:59 Intake Total 8030 36771 Output Total 6965 1260 Balance 1065 2641 Weight 96.2 kg 98.6 kg Physical Exam: Elderly white male lying in hospital bed. Patient is alert, oriented, and conversant. Is complaining of pain in the left lower extremity associated with motion. "It has only been 1 day" General appearance: PRESENT: mild distress, well-developed, well-nourished Head exam: PRESENT: normocephalic Respiratory exam: PRESENT: unlabored Cardiovascular exam: PRESENT: RRR Pulses: PRESENT: +1 pedal pulses bilateral GI/Abdominal exam: PRESENT: soft Rectal exam: PRESENT: deferred Extremities exam: PRESENT: other - Left lower extremity dressings clean dry and intact. Passive range of motion is painful. Distally he has brisk capillary refill. Motor function to the great toes intact. Results Laboratory Results: 10/12/18 05:10 10/12/18 05:10 10/12/18 10/12/18 05:10 05:10 WBC 12.1 H RBC 3.22 L Hgb 9.9 L Hct 31.2 L MCV 97 MCH 30.7 MCHC 31.7 L RDW 17.9 H Plt Count 270 Sodium 133.9 L Potassium 4.6 Chloride 94 L Carbon Dioxide 27 Anion Gap 13 BUN 37 H Creatinine 6.36 H Est GFR ( Amer) 11 L Est GFR (Non-Af Amer) 9 L Glucose 293 H Calcium 8.3 L 10/08/18 10/08/18 10/09/18 21:30 21:30 03:30 Creatine Kinase 78 51 L CK-MB (CK-2) 3.98 Troponin I 0.031 10/09/18 10/09/18 10/09/18 03:30 09:12 09:12 Creatine Kinase 56 CK-MB (CK-2) 3.52 3.00 Troponin I 0.034 0.038 10/12/18 05:10 Creatine Kinase CK-MB (CK-2) Troponin I 0.033 Impressions: Lower Extremity CT 10/08/18 19:50 IMPRESSION: Acute nondisplaced left femoral intertrochanteric fracture. Chest X-Ray 10/09/18 00:00 IMPRESSION: No acute findings in the chest. Shoulder X-Ray 10/09/18 00:00 IMPRESSION: NEGATIVE STUDY OF THE LEFT SHOULDER. NO RADIOGRAPHIC EVIDENCE OF ACUTE INJURY. Hip X-Ray 10/11/18 00:00 IMPRESSION: Intra procedural imaging and fluoro Status: Imported from PACS Assessment & Plan - Diagnosis (1) Nondisplaced intertrochanteric fracture of femur Qualifiers: Encounter type: initial encounter Fracture type: closed Laterality: left Qualified Code(s): S72.145A - Nondisplaced intertrochanteric fracture of left femur, initial encounter for closed fracture Is this a current diagnosis for this admission?: Yes Plan: Mobilized with physical therapy and weightbearing as tolerated basis. (2) Rotator cuff arthropathy of left shoulder Is this a current diagnosis for this admission?: Yes Plan: Continue to observe. - Time Time Spent with patient: 15-24 minutes Anticipated discharge: SNF Within: when bed available
[2018-10-12] MEDS: INSULIN LISPRO 100 UNIT/ML 3 ML VIAL SUBCUT SCH ×4 (07:37→21:49)
[2018-10-12] MEDS: IPRATROPIUM/ALBUTEROL 0.5-2.5 MG/3 ML AMPUL NEB SCH ×3 (07:53→23:58)
[2018-10-12] MEDS ORDERED: OXYCODONE-ACETAMINOPHEN 5-325 MG TABLET PO PRN (09:31)
[2018-10-12] MEDS: FINASTERIDE 5 MG TABLET PO SCH (09:41)
[2018-10-12] MEDS: CALCIUM CARBONATE 500 MG TABLET PO SCH ×2 (09:41→17:51)
[2018-10-12] MEDS: ESCITALOPRAM OXALATE 10 MG TABLET PO SCH (09:41)
[2018-10-12] MEDS: FOLIC ACID/VITAMIN B COMP W-C CAPSULE PO SCH (09:41)
[2018-10-12] MEDS: DOCUSATE SODIUM 100 MG CAPSULE PO SCH ×2 (09:41→17:51)
[2018-10-12] MEDS: ISOSORBIDE MONONITRATE 30 MG TAB.ER.24H PO SCH (09:41)
[2018-10-12] MEDS: ASPIRIN 81 MG TABLET, ENT COATED PO SCH (09:41)
[2018-10-12] MEDS: ARIPIPRAZOLE 2 MG TABLET PO SCH (09:41)
[2018-10-12] MEDS: CARVEDILOL 12.5 MG TABLET PO SCH ×2 (09:41→21:49)
--- NOTE | 2018-10-12 10:17 | EKG REPORT ---
SEVERITY:- ABNORMAL ECG - SINUS RHYTHM MULTIPLE VENTRICULAR PREMATURE COMPLEXES BORDERLINE T ABNORMALITIES, ANT-LAT LEADS BORDERLINE PROLONGED QT INTERVAL : Confirmed by: Yaya Pike MD 12-Oct-2018 10:16:40
[2018-10-12] MEDS ORDERED: GLUCAGON,HUMAN RECOMB 1 MG INJ IM PRN (10:30)
[2018-10-12] MEDS ORDERED: DEXTROSE 40% GEL 15 GM TUBE X 2 PO PRN (10:30)
[2018-10-12] MEDS ORDERED: DEXTROSE 50%-WATER SYRINGE 12.5 GM/25 ML DOSE IV PRN (10:30)
[2018-10-12] MEDS ORDERED: DEXTROSE 50%-WATER SYRINGE 25 GM/50 ML DOSE IV PRN (10:30)
[2018-10-12] MEDS ORDERED: DEXTROSE 40% GEL 15 GM TUBE PO PRN (10:30)
[2018-10-12 11:19] LABS: APPEARANCE,URINE TURBID; BILIRUBIN,URINE NEGATIVE (NEGATIVE); COLOR,URINE YELLOW; GLUCOSE, URINE >=500 mg/dL (NEGATIVE); KETONES,URINE NEGATIVE (NEGATIVE); LEUKOCYTE ESTERASE,URINE MODERATE (NEGATIVE); NITRITE,URINE NEGATIVE (NEGATIVE); PROTEIN,URINE 100 mg/dL (NEGATIVE); URINE SPECIFIC GRAVITY 1.012; UROBILINOGEN,URINE NEGATIVE mg/dL (<2.0)
--- NOTE | 2018-10-12 13:07 | PDOC PROGRESS REPORT ---
Subjective Progress Note for:: 10/12/18 Subjective:: CELIO WAGNER is a 67 year old male with a past medical history of congestive heart failure, coronary artery disease, COPD, diabetes, hypertension, blindness and end-stage renal failure on peritoneal dialysis who was admitted 10/08/2018 for a nondisplaced intertrochanteric femur fracture secondary to mechanical fall at home. Patient was seen on amorning rounds. He is found resting in bed comfortably on his baseline requirement of supplemental oxygen via nasal cannula. He reports that he is feeling well today. He does report left hip pain; does not feel that the fentanyl is adequately treating his pain. He denies current fever, chills, chest pain, palpitations, dyspnea, orthopnea, cough, abdominal pain, nausea vomiting and diarrhea. He has no other questions or concerns at this time. No concerns per nursing. Reason For Visit: HIP FRACTURE,ESRD Physical Exam Vital Signs: Temp Pulse Resp BP Pulse Ox 97.8 F 76 21 H 131/51 H 93 10/12/18 08:00 10/12/18 09:45 10/12/18 08:00 10/12/18 09:45 10/12/18 08:00 Intake & Output 10/11/18 10/12/18 10/13/18 06:59 06:59 06:59 Intake Total 8030 38503 2500 Output Total 6965 9560 2500 Balance 1065 2641 0 Weight 96.2 kg 98.6 kg 97.7 kg General appearance: PRESENT: no acute distress, cooperative - pleasant, obese, well-developed, well-nourished Head exam: PRESENT: atraumatic, normocephalic Eye exam: PRESENT: conjunctiva pink, EOMI, PERRLA. ABSENT: scleral icterus Ear exam: PRESENT: normal external ear exam Mouth exam: PRESENT: moist, tongue midline Neck exam: ABSENT: carotid bruit, JVD, lymphadenopathy, thyromegaly Respiratory exam: PRESENT: clear to auscultation yair, symmetrical, unlabored. ABSENT: rales, rhonchi, wheezes Cardiovascular exam: PRESENT: RRR, +S1, +S2. ABSENT: diastolic murmur, rubs, systolic murmur Pulses: PRESENT: normal dorsalis pedis pul Vascular exam: PRESENT: normal capillary refill GI/Abdominal exam: PRESENT: normal bowel sounds, soft. ABSENT: distended, guarding, mass, organolmegaly, rebound, tenderness Rectal exam: PRESENT: deferred Extremities exam: PRESENT: tenderness - Lt hip. ABSENT: calf tenderness, clubbing, pedal edema Neurological exam: PRESENT: alert, awake, oriented to person, oriented to place, oriented to time, oriented to situation, CN II-XII grossly intact. ABSENT: marie r sensory deficit Psychiatric exam: PRESENT: appropriate affect, normal mood. ABSENT: homicidal ideation, suicidal ideation Skin exam: PRESENT: dry, warm. ABSENT: cyanosis, rash Results Laboratory Results: 10/12/18 05:10 10/12/18 05:10 10/12/18 10/12/18 10/12/18 05:10 05:10 10:50 WBC 12.1 H RBC 3.22 L Hgb 9.9 L Hct 31.2 L MCV 97 MCH 30.7 MCHC 31.7 L RDW 17.9 H Plt Count 270 Sodium 133.9 L Potassium 4.6 Chloride 94 L Carbon Dioxide 27 Anion Gap 13 BUN 37 H Creatinine 6.36 H Est GFR ( Amer) 11 L Est GFR (Non-Af Amer) 9 L Glucose 293 H Calcium 8.3 L Urine Color YELLOW Urine Appearance TURBID Urine pH 5.0 Ur Specific [place] 1.012 Urine Protein 100 H Urine Glucose (UA) >=500 H Urine Ketones NEGATIVE Urine Blood SMALL H Urine Nitrite NEGATIVE Ur Leukocyte Esterase MODERATE H Urine WBC (Auto) >182 Urine RBC (Auto) 40 10/08/18 10/08/18 10/09/18 21:30 21:30 03:30 Creatine Kinase 78 51 L CK-MB (CK-2) 3.98 Troponin I 0.031 10/09/18 10/09/18 10/09/18 03:30 09:12 09:12 Creatine Kinase 56 CK-MB (CK-2) 3.52 3.00 Troponin I 0.034 0.038 10/12/18 05:10 Creatine Kinase CK-MB (CK-2) Troponin I 0.033 Impressions: Lower Extremity CT 10/08/18 19:50 IMPRESSION: Acute nondisplaced left femoral intertrochanteric fracture. Chest X-Ray 10/09/18 00:00 IMPRESSION: No acute findings in the chest. Shoulder X-Ray 10/09/18 00:00 IMPRESSION: NEGATIVE STUDY OF THE LEFT SHOULDER. NO RADIOGRAPHIC EVIDENCE OF ACUTE INJURY. Hip X-Ray 10/11/18 00:00 IMPRESSION: Intra procedural imaging and fluoro Assessment and Plan - Diagnosis (1) Nondisplaced intertrochanteric fracture of femur Qualifiers: Encounter type: initial encounter Fracture type: closed Laterality: left Qualified Code(s): S72.145A - Nondisplaced intertrochanteric fracture of left femur, initial encounter for closed fracture Is this a current diagnosis for this admission?: Yes Plan: Now s/p ORIF by Dr. Shelley Patient is admitted to the medical floor. We will defer postoperative DVT prophylaxis to their expertise; Dr. Shelley has started daily aspirin therapy. Analgesics as needed. PT/OT once cleared by Ortho. Discharge planning consulted for placement (2) Anemia in chronic kidney disease Is this a current diagnosis for this admission?: Yes Plan: At baseline; hemoglobin 11.7 on admission. Has trended down slightly but stable at 9.9 During his last admission his hemoglobin was stable at 8.5-9. Nephrology is consulted; will defer to their expertise. Has received erythropoietin this admission. (3) CHF (congestive heart failure) Qualifiers: Heart failure type: unspecified Heart failure chronicity: chronic Qualified Code(s): I50.9 - Heart failure, unspecified Is this a current diagnosis for this admission?: Yes Plan: Stable and without exacerbation at this time. We will continue the patient's home medication regiment of carvedilol, isosorbide, atorvastatin and aspirin. Monitor daily weights. Observe closely for fluid volume overload in the postoperative period. (4) Chronic renal failure, stage 5 Is this a current diagnosis for this admission?: Yes Plan: Oliguric; receives peritoneal dialysis. Nephrology is consulted; management per their expertise. (5) Leukocytosis Qualifiers: Leukocytosis type: unspecified Qualified Code(s): D72.829 - Elevated white blood cell count, unspecified Is this a current diagnosis for this admission?: Yes Plan: WBC is elevated to 12.1 postoperatively. Patient is afebrile, clear lung sounds, surgical incision without signs of infection. Likely secondary to orthopedic repair yesterday. If remains persistently elevated or patient develops fever will obtain UA and chest x-ray. No indications for antibiotics at this time. - Time Time Spent with patient: 15-24 minutes Medications reviewed and adjusted accordingly: Yes Anticipated discharge: SNF Within: Other - When cleared by Ortho
[2018-10-12] MEDS: OXYCODONE-ACETAMINOPHEN 5-325 MG TABLET PO PRN ×2 (14:14→19:20)
--- NOTE | 2018-10-12 21:26 | Progress Note ---
Provider Note Provider Note: CARDIOLOGY PROGRESS NOTE by Dr. Marie Martell on 10/12/2018. SUBJECTIVE: The patient is postop left hip pain and is asking for more pain medications. This is been informed to the nurse to seek Dr. Shelley's advice. The patient has no chest pain or discomfort. There is no shortness of breath. There is no PND orthopnea. There is no leg edema. There is no arrhythmia seen on the monitor. PHYSICAL EXAM: The patient is mildly obese. In no acute distress. Selected Entries 10/12/18 08:00 Temperature 97.8 F Temperature Oral Source Pulse Rate 76 Respiratory 21 H Rate Blood Pressure 131/51 H [Right Upper Arm] Blood Pressure 77 Mean [Right Upper Arm] Blood Pressure Supine Position [Right Upper Arm] O2 Sat by Pulse 93 Oximetry Oxygen Delivery Nasal Cannula Method ( includes room air) Oxygen Flow 3 Rate HEAD: Is atraumatic normocephalic. EYES: Pupils are equal round regular reactive to light accommodation. Extraocular movements are normal. There is no conjunctival pallor. There is no scleral icterus. EARS: Tympanic memories are intact external auditory canals are clear. NOSE: There is no deviated nasal septum. There is no inflammation nasal mucous membrane. MOUTH: Mucous membranes of mouth are moist tongue is moist. There is no ulcers. There is no bleeding from the gums. THROAT: There is no redness of the oropharynx. There is no exudates. SKIN: There is no skin rashes or skin lesions. There is no particular ecchymosis. NECK: Is supple there is no JVD. Carotids are equal there is no bruits. There is no lymphadenopathy. There is no accessory muscle respiration use. TRACHEA central. LUNGS: Is clear to auscultation percussion without any rhonchi rales or wheezing. HEART: S1-S2 is heard there is no S3 gallop there is no S4 gallop there is systolic murmur left sternal border and the apex there is no rub. ABDOMEN: There is no hepatosplenomegaly. Bowel sounds are well heard. There is no tender areas masses. EXTREMITIES: Left hip dressing is dry. Femorals are slightly diminished. There is no femoral bruits. Leg pulses are well felt. There is no DVT or cellulitis. There is INTERVENTIONAL TECH: The patient is conscious awake alert oriented x3 with no focal deficits. PSYCHIATRIC: The patient judgment insight are intact his affect is normal. Labs- All tests 24 hr 10/12/18 10/12/18 10/12/18 05:10 05:10 05:10 WBC 12.1 H RBC 3.22 L Hgb 9.9 L Hct 31.2 L MCV 97 MCH 30.7 MCHC 31.7 L RDW 17.9 H Plt Count 270 Sodium 133.9 L Potassium 4.6 Chloride 94 L Carbon Dioxide 27 Anion Gap 13 BUN 37 H Creatinine 6.36 H Est GFR ( Amer) 11 L Est GFR (Non-Af Amer) 9 L Glucose 293 H POC Glucose Calcium 8.3 L Troponin I 0.033 Urine Color Urine Appearance Urine pH Ur Specific [place] Urine Protein Urine Glucose (UA) Urine Ketones Urine Blood Urine Nitrite Urine Bilirubin Urine Urobilinogen Ur Leukocyte Esterase Urine WBC (Auto) Urine RBC (Auto) Urine WBC Clumps U Non-Squamous Epis Auto Urine Ascorbic Acid 10/12/18 10/12/18 10/12/18 06:14 10:50 11:33 WBC RBC Hgb Hct MCV MCH MCHC RDW Plt Count Sodium Potassium Chloride Carbon Dioxide Anion Gap BUN Creatinine Est GFR ( Amer) Est GFR (Non-Af Amer) Glucose POC Glucose 326 H 309 H Calcium Troponin I Urine Color YELLOW Urine Appearance TURBID Urine pH 5.0 Ur Specific [place] 1.012 Urine Protein 100 H Urine Glucose (UA) >=500 H Urine Ketones NEGATIVE Urine Blood SMALL H Urine Nitrite NEGATIVE Urine Bilirubin NEGATIVE Urine Urobilinogen NEGATIVE Ur Leukocyte Esterase MODERATE H Urine WBC (Auto) >182 Urine RBC (Auto) 40 Urine WBC Clumps MANY U Non-Squamous Epis Auto 7 Urine Ascorbic Acid NEGATIVE 10/12/18 10/12/18 16:25 21:15 WBC RBC Hgb Hct MCV MCH MCHC RDW Plt Count Sodium Potassium Chloride Carbon Dioxide Anion Gap BUN Creatinine Est GFR ( Amer) Est GFR (Non-Af Amer) Glucose POC Glucose 285 H 303 H Calcium Troponin I Urine Color Urine Appearance Urine pH Ur Specific [place] Urine Protein Urine Glucose (UA) Urine Ketones Urine Blood Urine Nitrite Urine Bilirubin Urine Urobilinogen Ur Leukocyte Esterase Urine WBC (Auto) Urine RBC (Auto) Urine WBC Clumps U Non-Squamous Epis Auto Urine Ascorbic Acid EKG: Sinus rhythm. No acute changes. No evidence of ischemia or PR. IMPRESSION/RECOMMENDATION: 1. Accidental fall and status post fracture of left hip for surgical repair. 2. Coronary artery disease. History of remote PR and history of remote stents. With no anginal symptoms since a long time. The patient has no anginal symptoms or symptoms of heart failure in spite of end-stage renal disease, and coronary artery disease. There is no history of arrhythmias. There is no postop evidence of acute ischemia or PR. EKG remains stable and cardiac biomarkers are normal. 3. Hypertension. 4. Diabetes mellitus 5. End-stage renal disease on peritoneal dialysis. We will recheck the patient's EKG and troponin in the morning. Medical decision making is of moderate complexity. Discussed management plan with attending physician on the case. Note 40 minutes spent on this patient with more than 50% time spent in direct patient care. Will follow
[2018-10-12] MEDS: ATORVASTATIN CALCIUM 80 MG TABLET PO SCH (21:49)
[2018-10-12] MEDS: FAMOTIDINE 20 MG TABLET PO SCH (21:50)
[2018-10-13] MEDS: FENTANYL CITRATE INJ/PF 100 MCG/2 ML AMPUL IV PRN ×2 (03:54→17:02)
[2018-10-13] MEDS: HEPARIN SOD (PORCINE) 5,000 UNIT/ML 1 ML VIAL SUBCUT SCH ×3 (05:01→22:21)
[2018-10-13] MEDS: PANTOPRAZOLE SODIUM 20 MG TABLET.DR PO SCH (05:03)
[2018-10-13 05:31] LABS: HEMATOCRIT 28.1 % (37.9-51.0); MEAN CORPUSCULAR HEMOGLOBIN 31.4 pg (27.0-33.4); MEAN CORPUSCULAR HGB CONC 32.2 g/dL (32.0-36.0); MEAN CORPUSCULAR VOLUME 98 fl (80-97); PLATELET COUNT 266 10^3/uL (150-450); RED BLOOD COUNT 2.88 10^6/uL (4.35-5.55); RED CELL DISTRIBUTION WIDTH 17.9 % (11.5-14.0); WHITE BLOOD COUNT 10.5 10^3/uL (4.0-10.5)
[2018-10-13 05:57] LABS: ANION GAP 10 (5-19); BLOOD UREA NITROGEN 39 mg/dL (7-20); CARBON DIOXIDE 30 mmol/L (22-30); CHLORIDE 95 mmol/L (98-107); GLUCOSE 252 mg/dL (75-110)
[2018-10-13 05:59] LABS: POTASSIUM 4.5 mmol/L (3.6-5.0)
[2018-10-13] MEDS: OXYCODONE-ACETAMINOPHEN 5-325 MG TABLET PO PRN ×3 (07:19→20:20)
[2018-10-13] MEDS: INSULIN LISPRO 100 UNIT/ML 3 ML VIAL SUBCUT SCH ×4 (07:19→22:21)
[2018-10-13] MEDS: IPRATROPIUM/ALBUTEROL 0.5-2.5 MG/3 ML AMPUL NEB SCH ×3 (08:24→23:24)
--- NOTE | 2018-10-13 08:39 | RADIOLOGY REPORT (SQ) ---
EXAM DESCRIPTION: CHEST SINGLE VIEW COMPLETED DATE/TIME: 10/13/2018 8:24 am REASON FOR STUDY: hypoxia, dyspnea COMPARISON: 10/09/2018. EXAM PARAMETERS: NUMBER OF VIEWS: One view. TECHNIQUE: Single frontal radiographic view of the chest acquired. RADIATION DOSE: NA LIMITATIONS: None. FINDINGS: LUNGS AND PLEURA: Persistent elevation of the right hemidiaphragm. Scattered linear micheline ngs in the right lung base. Mild interstitial prominence in the left lung. No pleural effusion or p neumothorax. MEDIASTINUM AND HILAR STRUCTURES: No masses. Contour normal. HEART AND VASCULAR STRUCTURES: Heart upper limits of normal in size. Normal vasculature. BONES: No acute findings. HARDWARE: None in the chest. OTHER: No other significant finding. IMPRESSION: PERSISTENT ELEVATION OF THE RIGHT HEMIDIAPHRAGM WITH RIGHT BASILAR ATELECTASIS. TECHNICAL DOCUMENTATION: JOB ID: [id number] [employer]- All Rights Reserved Reading location - IP/workstation name: [email or web address]
--- NOTE | 2018-10-13 09:41 | EKG REPORT ---
SEVERITY:- BORDERLINE ECG - SINUS BRADYCARDIA NONSPECIFIC ST-T CHANGES LATERAL LEADS : Confirmed by: Yaya Pike MD 13-Oct-2018 09:40:55
[2018-10-13] MEDS: CARVEDILOL 12.5 MG TABLET PO SCH ×2 (11:08→22:20)
[2018-10-13] MEDS: ESCITALOPRAM OXALATE 10 MG TABLET PO SCH (11:08)
[2018-10-13] MEDS: ASPIRIN 81 MG TABLET, ENT COATED PO SCH (11:08)
[2018-10-13] MEDS: DOCUSATE SODIUM 100 MG CAPSULE PO SCH ×2 (11:08→17:00)
[2018-10-13] MEDS: ARIPIPRAZOLE 2 MG TABLET PO SCH (11:08)
[2018-10-13] MEDS: ISOSORBIDE MONONITRATE 30 MG TAB.ER.24H PO SCH (11:08)
[2018-10-13] MEDS: CALCIUM CARBONATE 500 MG TABLET PO SCH ×2 (11:09→17:00)
[2018-10-13] MEDS: FOLIC ACID/VITAMIN B COMP W-C CAPSULE PO SCH (11:09)
[2018-10-13] MEDS: FINASTERIDE 5 MG TABLET PO SCH (11:09)
[2018-10-13] MEDS: LACTULOSE SYRUP 20 GM/30 ML UDCUP PO PRN (11:10)
--- NOTE | 2018-10-13 13:45 | PDOC PROGRESS REPORT ---
Subjective Progress Note for:: 10/13/18 Subjective:: CELIO WAGNER is a 67 year old male with a past medical history of congestive heart failure, coronary artery disease, COPD, diabetes, hypertension, blindness and end-stage renal failure on peritoneal dialysis who was admitted 10/08/2018 for a nondisplaced intertrochanteric femur fracture secondary to mechanical fall at home. Patient was seen on morning rounds. He is found resting in bed comfortably on supplemental oxygen via nasal cannula. He reports he uses 3lpm at baseline; currently on 4lp. He reports that he is feeling well today but does continue to have left hip pain. He denies current fever, chills, chest pain, palpitations, dyspnea, orthopnea, cough, abdominal pain, nausea vomiting and diarrhea. He has no other questions or concerns at this time. Nursing reports confusion and hallucinations overnight Reason For Visit: HIP FRACTURE,ESRD Physical Exam Vital Signs: Temp Pulse Resp BP Pulse Ox 97.8 F 66 19 117/42 L 98 10/13/18 12:00 10/13/18 12:00 10/13/18 12:00 10/13/18 12:00 10/13/18 12:00 Intake & Output 10/12/18 10/13/18 10/14/18 06:59 06:59 06:59 Intake Total 60647 83249 3000 Output Total 9560 21713 2750 Balance 2641 945 250 Weight 98.6 kg 100.4 kg 98.4 kg General appearance: PRESENT: no acute distress, cooperative - pleasant, obese, well-developed, well-nourished Head exam: PRESENT: atraumatic, normocephalic Eye exam: PRESENT: conjunctiva pink, EOMI, PERRLA. ABSENT: scleral icterus Ear exam: PRESENT: normal external ear exam Mouth exam: PRESENT: moist, tongue midline Neck exam: ABSENT: carotid bruit, JVD, lymphadenopathy, thyromegaly Respiratory exam: PRESENT: clear to auscultation yair, symmetrical, unlabored, ot her - supplemental oxygen via NC. ABSENT: rales, rhonchi, wheezes Cardiovascular exam: PRESENT: RRR. ABSENT: diastolic murmur, rubs, systolic murmur Pulses: PRESENT: normal dorsalis pedis pul Vascular exam: PRESENT: normal capillary refill GI/Abdominal exam: PRESENT: normal bowel sounds, soft. ABSENT: distended, guarding, mass, organolmegaly, rebound, tenderness Rectal exam: PRESENT: deferred Extremities exam: PRESENT: full ROM. ABSENT: calf tenderness, clubbing, pedal edema Musculoskeletal exam: PRESENT: tenderness - left hip Neurological exam: PRESENT: alert, awake, oriented to person, oriented to place, oriented to time, oriented to situation, CN II-XII grossly intact, other - intermittent confusion/hallucinations. ABSENT: motor sensory deficit Psychiatric exam: PRESENT: appropriate affect, normal mood. ABSENT: homicidal ideation, suicidal ideation Skin exam: PRESENT: dry, intact, warm. ABSENT: cyanosis, rash Results Laboratory Results: 10/13/18 05:10 10/13/18 05:10 10/13/18 10/13/18 05:10 05:10 WBC 10.5 RBC 2.88 L Hgb 9.0 L Hct 28.1 L MCV 98 H MCH 31.4 MCHC 32.2 RDW 17.9 H Plt Count 266 Sodium 135.2 L Potassium 4.5 Chloride 95 L Carbon Dioxide 30 Anion Gap 10 BUN 39 H Creatinine 6.36 H Est GFR ( Amer) 11 L Est GFR (Non-Af Amer) 9 L Glucose 252 H Calcium 8.0 L 10/08/18 10/08/18 10/09/18 21:30 21:30 03:30 Creatine Kinase 78 51 L CK-MB (CK-2) 3.98 Troponin I 0.031 10/09/18 10/09/18 10/09/18 03:30 09:12 09:12 Creatine Kinase 56 CK-MB (CK-2) 3.52 3.00 Troponin I 0.034 0.038 10/12/18 10/13/18 05:10 05:10 Creatine Kinase CK-MB (CK-2) Troponin I 0.033 0.045 Impressions: Lower Extremity CT 10/08/18 19:50 IMPRESSION: Acute nondisplaced left femoral intertrochanteric fracture. Shoulder X-Ray 10/09/18 00:00 IMPRESSION: NEGATIVE STUDY OF THE LEFT SHOULDER. NO RADIOGRAPHIC EVIDENCE OF ACUTE INJURY. Hip X-Ray 10/11/18 00:00 IMPRESSION: Intra procedural imaging and fluoro Chest X-Ray 10/13/18 00:00 IMPRESSION: PERSISTENT ELEVATION OF THE RIGHT HEMIDIAPHRAGM WITH RIGHT BASILAR ATELECTASIS. Assessment and Plan - Diagnosis (1) Nondisplaced intertrochanteric fracture of femur Qualifiers: Encounter type: initial encounter Fracture type: closed Laterality: left Qualified Code(s): S72.145A - Nondisplaced intertrochanteric fracture of left femur, initial encounter for closed fracture Is this a current diagnosis for this admission?: Yes Plan: Now s/p ORIF by Dr. Shelley Patient is admitted to the medical floor. We will defer postoperative DVT prophylaxis to their expertise; Dr. Shelley has started daily aspirin therapy. Analgesics as needed. PT/OT are consulted. Discharge planning consulted for placement (2) Anemia in chronic kidney disease Is this a current diagnosis for this admission?: Yes Plan: At baseline; hemoglobin 11.7 on admission. Has trended down to 9.0 During his last admission his hemoglobin was stable at 8.5-9. Nephrology is consulted; will defer to their expertise. Has received erythropoietin this admission. (3) CHF (congestive heart failure) Qualifiers: Heart failure type: unspecified Heart failure chronicity: chronic Qualified Code(s): I50.9 - Heart failure, unspecified Is this a current diagnosis for this admission?: Yes Plan: Stable and without exacerbation at this time. CXR today is clear. No crackles on exam or dependent edema noted. We will continue the patient's home medication regiment of carvedilol, isosorbide, atorvastatin and aspirin. Monitor daily weights. Observe closely for fluid volume overload in the postoperative period. (4) Chronic renal failure, stage 5 Is this a current diagnosis for this admission?: Yes Plan: Oliguric; receives peritoneal dialysis. Nephrology is consulted; management per their expertise. (5) Leukocytosis Qualifiers: Leukocytosis type: unspecified Qualified Code(s): D72.829 - Elevated white blood cell count, unspecified Is this a current diagnosis for this admission?: Yes Plan: Resolved. Patient is afebrile, clear lung sounds, surgical incision without signs of infection. Likely secondary to orthopedic repair No indications for antibiotics at this time. (6) Acute delirium Is this a current diagnosis for this admission?: Yes Plan: Nursing reports intermittent confusion and hallucinations overnight and early this morning. Likely secondary to acute pain and narcotic use. Patient is opiate teodora. Vital signs are stable at the time of my assessment the patient was alert and oriented x4. CBC and chemistry are acceptable. No evidence of infectious process. Supportive care. Fall precautions. Will decrease oxycodone today. - Time Time Spent with patient: 25-34 minutes Medications reviewed and adjusted accordingly: Yes Anticipated discharge: SNF Within: when bed available - pending Ortho clearance - Plan Summary Plan Summary: Medically stable for discharge to SNF for short-term rehab once approved by Ortho.
[2018-10-13] MEDS: FAMOTIDINE 20 MG TABLET PO SCH (22:20)
[2018-10-13] MEDS: ATORVASTATIN CALCIUM 80 MG TABLET PO SCH (22:20)
--- NOTE | 2018-10-13 22:57 | Progress Note ---
Provider Note Provider Note: CARDIOLOGY PROGRESS NOTE by Dr. villa S1 on 10/13/2018. Subjective: Patient has no chest pain or discomfort. There is no PND orthopnea. The patient's pain is well controlled. He has no TIA CVA symptoms. There is no arrhythmia seen. There is no palpitations PHYSICAL EXAMINATION: The patient is mildly obese. In no acute distress. He is well-groomed Selected Entries 10/13/18 12:00 Temperature 97.8 F Temperature Oral Source Pulse Rate 66 Respiratory 19 Rate Blood Pressure 117/42 L [Right Upper Arm] Blood Pressure 67 Mean [Right Upper Arm] Blood Pressure Sitting Position [Right Upper Arm] O2 Sat by Pulse 98 Oximetry Oxygen Delivery Nasal Cannula Method ( includes room air) Oxygen Flow 5 Rate I HEAD: Is atraumatic normocephalic. EYES: Pupils are equal round regular reactive to light accommodation. Extraocular movements are normal. There is no conjunctival pallor. There is no scleral icterus. EARS: Tympanic memories are intact external auditory canals are clear. NOSE: There is no deviated nasal septum. There is no inflammation nasal mucous membrane. MOUTH: Mucous membranes of mouth are moist tongue is moist. There is no ulcers. There is no bleeding from the gums. THROAT: There is no redness of the oropharynx. There is no exudates. SKIN: There is no skin rashes or skin lesions. There is no particular ecchymosis. NECK: Is supple there is no JVD. Carotids are equal there is no bruits. There is no lymphadenopathy. There is no accessory muscle respiration use. TRACHEA central. LUNGS: Is clear to auscultation percussion without any rhonchi rales or wheezing. HEART: S1-S2 is heard there is no S3 g allop there is no S4 gallop there is systolic murmur left sternal border and the apex there is no rub. ABDOMEN: There is no hepatosplenomegaly. Bowel sounds are well heard. There is no tender areas masses. EXTREMITIES: Left hip dressing is dry. Femorals are slightly diminished. There is no femoral bruits. Leg pulses are well felt. There is no DVT or cellulitis. There is [employer]: The patient is conscious awake alert oriented x3 with no focal deficits. PSYCHIATRIC: The patient judgment insight are intact his affect is normal. Labs- All tests 24 hr 10/13/18 10/13/18 10/13/18 05:10 05:10 05:10 WBC 10.5 RBC 2.88 L Hgb 9.0 L Hct 28.1 L MCV 98 H MCH 31.4 MCHC 32.2 RDW 17.9 H Plt Count 266 Sodium 135.2 L Potassium 4.5 Chloride 95 L Carbon Dioxide 30 Anion Gap 10 BUN 39 H Creatinine 6.36 H Est GFR ( Amer) 11 L Est GFR (Non-Af Amer) 9 L Glucose 252 H POC Glucose Calcium 8.0 L Troponin I 0.045 10/13/18 10/13/18 10/13/18 06:14 11:08 16:49 WBC RBC Hgb Hct MCV MCH MCHC RDW Plt Count Sodium Potassium Chloride Carbon Dioxide Anion Gap BUN Creatinine Est GFR ( Amer) Est GFR (Non-Af Amer) Glucose POC Glucose 310 H 216 H 270 H Calcium Troponin I 10/13/18 21:10 WBC RBC Hgb Hct MCV MCH MCHC RDW Plt Count Sodium Potassium Chloride Carbon Dioxide Anion Gap BUN Creatinine Est GFR ( Amer) Est GFR (Non-Af Amer) Glucose POC Glucose 251 H Calcium Troponin I The patient is EKG: Sinus rhythm. Minor T wave flattening in leads I aVL. No a cute ischemic changes. No evidence of injury. IMPRESSION/RECOMMENDATION: 1. Accidental fall and status post fracture of left hip for surgical repair. 2. Coronary artery disease. History of remote LA and history of remote stents. With no anginal symptoms since a long time. The patient has no anginal symptoms or symptoms of heart failure in spite of end-stage renal disease, and coronary artery disease. There is no history of arrhythmias. There is no postop evidence of acute ischemia or LA. EKG remains stable and cardiac biomarkers are normal. 3. Hypertension. 4. Diabetes mellitus 5. End-stage renal disease on peritoneal dialysis. Medications reviewed. Medical management discussed with the attending physician on the case. Cardiac status is stable. Medical decision making is of moderate complexity. Will sign off the case. Will follow the patient in the office since the patient so desires. He does have my contact numbers. Thank you for allowing me to participate in the care of this patient. Will sign off.
[2018-10-14] MEDS: FENTANYL CITRATE INJ/PF 100 MCG/2 ML AMPUL IV PRN (00:27)
[2018-10-14] MEDS: OXYCODONE-ACETAMINOPHEN 5-325 MG TABLET PO PRN ×3 (04:34→22:14)
[2018-10-14 05:02] LABS: HEMATOCRIT 27.2 % (37.9-51.0); HEMOGLOBIN 8.7 g/dL (13.5-17.0); MEAN CORPUSCULAR HGB CONC 32.1 g/dL (32.0-36.0); MEAN CORPUSCULAR VOLUME 96 fl (80-97); PLATELET COUNT 273 10^3/uL (150-450); RED BLOOD COUNT 2.82 10^6/uL (4.35-5.55); RED CELL DISTRIBUTION WIDTH 17.5 % (11.5-14.0); WHITE BLOOD COUNT 13.8 10^3/uL (4.0-10.5)
[2018-10-14 05:25] LABS: ANION GAP 10 (5-19); BLOOD UREA NITROGEN 40 mg/dL (7-20); CALCIUM 8.2 mg/dL (8.4-10.2); CARBON DIOXIDE 29 mmol/L (22-30); CHLORIDE 96 mmol/L (98-107); GLUCOSE 210 mg/dL (75-110); POTASSIUM 4.2 mmol/L (3.6-5.0)
[2018-10-14] MEDS: HEPARIN SOD (PORCINE) 5,000 UNIT/ML 1 ML VIAL SUBCUT SCH ×3 (06:03→23:38)
[2018-10-14] MEDS: PANTOPRAZOLE SODIUM 20 MG TABLET.DR PO SCH (06:03)
[2018-10-14] MEDS: INSULIN LISPRO 100 UNIT/ML 3 ML VIAL SUBCUT SCH ×4 (07:32→23:37)
[2018-10-14] MEDS: IPRATROPIUM/ALBUTEROL 0.5-2.5 MG/3 ML AMPUL NEB SCH ×2 (07:57→16:42)
--- NOTE | 2018-10-14 08:31 | PDOC PROGRESS REPORT ---
Subjective Progress Note for:: 10/14/18 Reason For Visit: HIP FRACTURE,ESRD 68-year-old white male with a nondisplaced left intertrochanteric femur fracture now postop day 3 status post open reduction internal fixation. Patient complaining about pain with motion. Feels that this is not improving. Physical Exam Vital Signs: Temp Pulse Resp BP Pulse Ox 36.9 C 78 20 125/40 L 90 L 10/14/18 07:34 10/14/18 07:34 10/14/18 07:34 10/14/18 07:34 10/14/18 07:34 Intake & Output 10/13/18 10/14/18 10/15/18 06:59 06:59 06:59 Intake Total 96993 45081 Output Total 19610 94669 Balance 945 -120 Weight 100.4 kg 100.4 kg Physical Exam: Elderly white male sitting up in bed. Patient is alert, oriented, and appropriate. General appearance: PRESENT: no acute distress, mild distress Head exam: PRESENT: normocephalic Respiratory exam: PRESENT: unlabored Cardiovascular exam: PRESENT: RRR Vascular exam: PRESENT: normal capillary refill Rectal exam: PRESENT: deferred Extremities exam: PRESENT: other - Left lower extremity dressings clean dry and intact. There is brisk capillary refill to the toes. Great toe flexion extension is intact. Neurological exam: PRESENT: alert, awake, oriented to person, oriented to place, oriented to time, oriented to situation Results Laboratory Results: 10/14/18 04:07 10/14/18 04:07 10/14/18 10/14/18 04:07 04:07 WBC 13.8 H RBC 2.82 L Hgb 8.7 L Hct 27.2 L MCV 96 MCH 31.0 MCHC 32.1 RDW 17.5 H Plt Count 273 Sodium 135.4 L Potassium 4.2 Chloride 96 L Carbon Dioxide 29 Anion Gap 10 BUN 40 H Creatinine 6.49 H Est GFR ( Amer) 10 L Est GFR (Non-Af Amer) 9 L Glucose 210 H Calcium 8.2 L 10/12/18 10:50 Catheterized Urine Urine Culture - Final C.albicans/C.dubliniensis 10/08/18 10/08/18 10/09/18 21:30 21:30 03:30 Creatine Kinase 78 51 L CK-MB (CK-2) 3.98 Troponin I 0.031 10/09/18 10/09/18 10/09/18 03:30 09:12 09:12 Creatine Kinase 56 CK-MB (CK-2) 3.52 3.00 Troponin I 0.034 0.038 10/12/18 10/13/18 05:10 05:10 Creatine Kinase CK-MB (CK-2) Troponin I 0.033 0.045 Impressions: Lower Extremity CT 10/08/18 19:50 IMPRESSION: Acute nondisplaced left femoral intertrochanteric fracture. Shoulder X-Ray 10/09/18 00:00 IMPRESSION: NEGATIVE STUDY OF THE LEFT SHOULDER. NO RADIOGRAPHIC EVIDENCE OF ACUTE INJURY. Hip X-Ray 10/11/18 00:00 IMPRESSION: Intra procedural imaging and fluoro Chest X-Ray 10/13/18 00:00 IMPRESSION: PERSISTENT ELEVATION OF THE RIGHT HEMIDIAPHRAGM WITH RIGHT BASILAR ATELECTASIS. Status: Imported from PACS Assessment & Plan - Diagnosis (1) Nondisplaced intertrochanteric fracture of femur Qualifiers: Encounter type: initial encounter Fracture type: closed Laterality: left Qualified Code(s): S72.145A - Nondisplaced intertrochanteric fracture of left femur, initial encounter for closed fracture Is this a current diagnosis for this admission?: Yes Plan: Ongoing complaints of pain and limited progress with physical therapy. Anticipate the need for senior living facility placement. (2) Rotator cuff arthropathy of left shoulder Is this a current diagnosis for this admission?: Yes - Time Time Spent with patient: 15-24 minutes Anticipated discharge: SNF Within: when bed available
[2018-10-14] MEDS: ASPIRIN 81 MG TABLET, ENT COATED PO SCH (10:39)
[2018-10-14] MEDS: DOCUSATE SODIUM 100 MG CAPSULE PO SCH ×2 (10:39→16:47)
[2018-10-14] MEDS: CARVEDILOL 12.5 MG TABLET PO SCH ×2 (10:39→22:16)
[2018-10-14] MEDS: ISOSORBIDE MONONITRATE 30 MG TAB.ER.24H PO SCH (10:39)
[2018-10-14] MEDS: ARIPIPRAZOLE 2 MG TABLET PO SCH (10:39)
[2018-10-14] MEDS: FOLIC ACID/VITAMIN B COMP W-C CAPSULE PO SCH (10:40)
[2018-10-14] MEDS: ESCITALOPRAM OXALATE 10 MG TABLET PO SCH (10:40)
[2018-10-14] MEDS: CALCIUM CARBONATE 500 MG TABLET PO SCH ×2 (10:40→16:47)
[2018-10-14] MEDS: FINASTERIDE 5 MG TABLET PO SCH (10:40)
--- NOTE | 2018-10-14 12:14 | PDOC PROGRESS REPORT ---
Subjective Progress Note for:: 10/14/18 Reason For Visit: Patient is status post ORIF for hip fracture and currently undergoing rehab prior to his discharge. He was seen today in the process of undergoing rehab/PT in his room. Is generally doing well. Continuing with his peritoneal dialysis and using the 1.5% and a 2.5% solutions because of relatively low blood pressures. The patient is not shortness of short of breath. Physical Exam Vital Signs: Temp Pulse Resp BP Pulse Ox 98.5 F 78 16 125/40 L 96 10/14/18 07:34 10/14/18 10:35 10/14/18 07:57 10/14/18 10:35 10/14/18 07:57 Intake & Output 10/13/18 10/14/18 10/15/18 06:59 06:59 06:59 Intake Total 01845 47417 2500 Output Total 01816 37111 2350 Balance 945 -120 150 Weight 100.4 kg 100.4 kg 98.1 kg General appearance: PRESENT: no acute distress Respiratory exam: PRESENT: clear to auscultation yair. ABSENT: crackles Cardiovascular exam: PRESENT: +S1, +S2 GI/Abdominal exam: PRESENT: normal bowel sounds, soft. ABSENT: organomegaly, tenderness Extremities exam: ABSENT: pedal edema Neurological exam: PRESENT: alert, awake, oriented to person, oriented to place Psychiatric exam: PRESENT: appropriate affect Results Laboratory Results: 10/14/18 04:07 10/14/18 04:07 10/14/18 10/14/18 04:07 04:07 WBC 13.8 H RBC 2.82 L Hgb 8.7 L Hct 27.2 L MCV 96 MCH 31.0 MCHC 32.1 RDW 17.5 H Plt Count 273 Sodium 135.4 L Potassium 4.2 Chloride 96 L Carbon Dioxide 29 Anion Gap 10 BUN 40 H Creatinine 6.49 H Est GFR ( Amer) 10 L Est GFR (Non-Af Amer) 9 L Glucose 210 H Calcium 8.2 L 10/12/18 10:50 Catheterized Urine Urine Culture - Final C.albicans/C.dubliniensis 10/08/18 10/08/18 10/09/18 21:30 21:30 03:30 Creatine Kinase 78 51 L CK-MB (CK-2) 3.98 Troponin I 0.031 10/09/18 10/09/18 10/09/18 03:30 09:12 09:12 Creatine Kinase 56 CK-MB (CK-2) 3.52 3.00 Troponin I 0.034 0.038 10/12/18 10/13/18 05:10 05:10 Creatine Kinase CK-MB (CK-2) Troponin I 0.033 0.045 Impressions: Lower Extremity CT 10/08/18 19:50 IMPRESSION: Acute nondisplaced left femoral intertrochanteric fracture. Shoulder X-Ray 10/09/18 00:00 IMPRESSION: NEGATIVE STUDY OF THE LEFT SHOULDER. NO RADIOGRAPHIC EVIDENCE OF ACUTE INJURY. Hip X-Ray 10/11/18 00:00 IMPRESSION: Intra procedural imaging and fluoro Chest X-Ray 10/13/18 00:00 IMPRESSION: PERSISTENT ELEVATION OF THE RIGHT HEMIDIAPHRAGM WITH RIGHT BASILAR ATELECTASIS. Assessment & Plan - Diagnosis (1) Nondisplaced intertrochanteric fracture of femur Qualifiers: Encounter type: initial encounter Fracture type: closed Laterality: left Qualified Code(s): S72.145A - Nondisplaced intertrochanteric fracture of left femur, initial encounter for closed fracture Is this a current diagnosis for this admission?: Yes Plan: Doing well. Currently on rehab. (2) Diabetes Qualifiers: Diabetes mellitus type: type 2 Plan: Advised tight control. (3) End stage renal disease on dialysis Plan: Continue on current PD regimen. Doing well. No fluid overload. (4) HTN (hypertension) Is this a current diagnosis for this admission?: Yes Plan: Controlled. Monitor.
--- NOTE | 2018-10-14 16:15 | PDOC PROGRESS REPORT ---
Subjective Progress Note for:: 10/14/18 Subjective:: Patient seen resting in bed. He is awake, alert, oriented x3. He denies any chest pain, shortness of breath or dyspnea at rest. He denies any nausea, vomiting or abdominal pain. He denies any diarrhea or dysuria. He denies any fevers or chills. He states pain in the left hip is much improved since yesterday. He was able to move a little more with physical therapy earlier this morning. He continues to have significant pain that she is making his postop recovery slow. He denies any other arthralgias or myalgias. Remaining review of systems are negative. Reason For Visit: HIP FRACTURE,ESRD Physical Exam Vital Signs: Temp Pulse Resp BP Pulse Ox 97.4 F 59 L 20 109/41 L 93 10/14/18 12:00 10/14/18 14:00 10/14/18 12:00 10/14/18 12:00 10/14/18 12:00 Intake & Output 10/13/18 10/14/18 10/15/18 06:59 06:59 06:59 Intake Total 54524 56070 3922 Output Total 65302 77066 2350 Balance 945 -120 1572 Weight 100.4 kg 100.4 kg 98.1 kg General appearance: PRESENT: no acute distress, well-developed, well-nourished Head exam: PRESENT: atraumatic, normocephalic Eye exam: PRESENT: conjunctiva pink, EOMI, PERRLA. ABSENT: scleral icterus Ear exam: PRESENT: normal external ear exam Mouth exam: PRESENT: moist, tongue midline Neck exam: ABSENT: carotid bruit, JVD, lymphadenopathy, thyromegaly Respiratory exam: PRESENT: clear to auscultation yair. ABSENT: rales, rhonchi, wheezes Cardiovascular exam: PRESENT: RRR. ABSENT: diastolic murmur, rubs, systolic murmur Pulses: PRESENT: normal carotid pulses, normal dorsalis pedis pul Vascular exam: PRESENT: normal capillary refill GI/Abdominal exam: PRESENT: normal bowel sounds, soft. ABSENT: distended, guar ding, mass, organolmegaly, rebound, tenderness Rectal exam: PRESENT: deferred Extremities exam: PRESENT: full ROM. ABSENT: calf tenderness, clubbing, pedal edema Musculoskeletal exam: PRESENT: tenderness - Left hip Neurological exam: PRESENT: alert, awake, oriented to person, oriented to place, oriented to time, oriented to situation, CN II-XII grossly intact. ABSENT: motor sensory deficit Psychiatric exam: PRESENT: appropriate affect, normal mood. ABSENT: homicidal i deation, suicidal ideation Skin exam: PRESENT: dry, intact, warm. ABSENT: cyanosis, rash Results Laboratory Results: 10/14/18 04:07 10/14/18 04:07 10/14/18 10/14/18 04:07 04:07 WBC 13.8 H RBC 2.82 L Hgb 8.7 L Hct 27.2 L MCV 96 MCH 31.0 MCHC 32.1 RDW 17.5 H Plt Count 273 Sodium 135.4 L Potassium 4.2 Chloride 96 L Carbon Dioxide 29 Anion Gap 10 BUN 40 H Creatinine 6.49 H Est GFR ( Amer) 10 L Est GFR (Non-Af Amer) 9 L Glucose 210 H Calcium 8.2 L 10/12/18 10:50 Catheterized Urine Urine Culture - Final C.albicans/C.dubliniensis 10/08/18 10/08/18 10/09/18 21:30 21:30 03:30 Creatine Kinase 78 51 L CK-MB (CK-2) 3.98 Troponin I 0.031 10/09/18 10/09/18 10/09/18 03:30 09:12 09:12 Creatine Kinase 56 CK-MB (CK-2) 3.52 3.00 Troponin I 0.034 0.038 10/12/18 10/13/18 05:10 05:10 Creatine Kinase CK-MB (CK-2) Troponin I 0.033 0.045 Impressions: Lower Extremity CT 10/08/18 19:50 IMPRESSION: Acute nondisplaced left femoral intertrochanteric fracture. Shoulder X-Ray 10/09/18 00:00 IMPRESSION: NEGATIVE STUDY OF THE LEFT SHOULDER. NO RADIOGRAPHIC EVIDENCE OF ACUTE INJURY. Hip X-Ray 10/11/18 00:00 IMPRESSION: Intra procedural imaging and fluoro Chest X-Ray 10/13/18 00:00 IMPRESSION: PERSISTENT ELEVATION OF THE RIGHT HEMIDIAPHRAGM WITH RIGHT BASILAR ATELECTASIS. Assessment and Plan - Diagnosis (1) Nondisplaced intertrochanteric fracture of femur Qualifiers: Encounter type: initial encounter Fracture type: closed Laterality: left Qualified Code(s): S72.145A - Nondisplaced intertrochanteric fracture of left femur, initial encounter for closed fracture Is this a current diagnosis for this admission?: Yes Plan: Now s/p ORIF day #[address] Shelley Patient is admitted to the medical floor. We will defer postoperative DVT prophylaxis to their expertise; Dr. Shelley has started daily aspirin therapy. Analgesics as needed. PT/OT are consulted. Discharge planning consulted for placement. Patient will need short-term rehab (2) Anemia in chronic kidney disease Is this a current diagnosis for this admission?: Yes Plan: At baseline; hemoglobin 11.7 on admission. Has trended down to 9.0 During his last admission his hemoglobin was stable at 8.5-9. Nephrology is consulted; will defer to their expertise. Has received erythropoietin this admission. Dr. Evans has seen patient in consult for nephrology Continue peritoneal dialysis per his orders. (3) Diabetes mellitus type 2 in obese Is this a current diagnosis for this admission?: Yes Plan: Patient's appetite is good continue home medications and sliding scale coverage. (4) End-stage renal disease on peritoneal dialysis Is this a current diagnosis for this admission?: Yes (5) Hypertension Qualifiers: Hypertension type: essential hypertension Qualified Code(s): I10 - Essential (primary) hypertension Is this a current diagnosis for this admission?: Yes Plan: Continue home medications. - Time Time Spent with patient: 25-34 minutes Medications reviewed and adjusted accordingly: Yes Anticipated discharge: Acute Rehab Within: when bed available - Inpatient Certification Based on my medical assessment, after consideration of the patient's comorbidities, presenting symptoms, or acuity I expect that the services needed warrant INPATIENT care.: Yes I certify that my determination is in accordance with my understanding of Medicare's requirements for reasonable and necessary INPATIENT services [42 CFR 412.3e].: Yes Medical Necessity: Need for Pain Control, Need for Surgery
[2018-10-14] MEDS: ATORVASTATIN CALCIUM 80 MG TABLET PO SCH (22:15)
[2018-10-14] MEDS: FAMOTIDINE 20 MG TABLET PO SCH (22:16)
[2018-10-15] MEDS: IPRATROPIUM/ALBUTEROL 0.5-2.5 MG/3 ML AMPUL NEB SCH ×3 (00:27→16:29)
[2018-10-15] MEDS: FENTANYL CITRATE INJ/PF 100 MCG/2 ML AMPUL IV PRN ×2 (02:25→18:41)
[2018-10-15] MEDS: HEPARIN SOD (PORCINE) 5,000 UNIT/ML 1 ML VIAL SUBCUT SCH ×3 (05:39→23:37)
[2018-10-15] MEDS: OXYCODONE-ACETAMINOPHEN 5-325 MG TABLET PO PRN ×3 (05:44→16:31)
[2018-10-15] MEDS: PANTOPRAZOLE SODIUM 20 MG TABLET.DR PO SCH (05:47)
--- NOTE | 2018-10-15 06:58 | PDOC PROGRESS REPORT ---
Subjective Progress Note for:: 10/15/18 Reason For Visit: HIP FRACTURE,ESRD 68-year-old white male now postop day 4 status post open reduction internal fixation of a nondisplaced left intratrochanteric femur fracture. Patient with improving function and decreasing pain by his report. Physical Exam Vital Signs: Temp Pulse Resp BP Pulse Ox 37.2 C 70 16 115/50 L 96 10/15/18 03:58 10/15/18 04:00 10/15/18 03:58 10/15/18 04:00 10/15/18 03:58 Intake & Output 10/13/18 10/14/18 10/15/18 06:59 06:59 06:59 Intake Total 17877 69522 27237 Output Total 69580 61783 9875 Balance 945 -120 1867 Weight 100.4 kg 100.4 kg 97.1 kg General appearance: PRESENT: no acute distress, mild distress Head exam: PRESENT: normocephalic Respiratory exam: PRESENT: unlabored Cardiovascular exam: PRESENT: RRR Pulses: PRESENT: +1 pedal pulses bilateral Vascular exam: PRESENT: normal capillary refill Extremities exam: PRESENT: other - Left lower extremity dressings remain clean dry and intact. Leg lengths are equal. Results Laboratory Results: 10/14/18 04:07 10/14/18 04:07 10/08/18 10/08/18 10/09/18 21:30 21:30 03:30 Creatine Kinase 78 51 L CK-MB (CK-2) 3.98 Troponin I 0.031 10/09/18 10/09/18 10/09/18 03:30 09:12 09:12 Creatine Kinase 56 CK-MB (CK-2) 3.52 3.00 Troponin I 0.034 0.038 10/12/18 10/13/18 05:10 05:10 Creatine Kinase CK-MB (CK-2) Troponin I 0.033 0.045 Impressions: Lower Extremity CT 10/08/18 19:50 IMPRESSION: Acute nondisplaced left femoral intertrochanteric fracture. Shoulder X-Ray 10/09/18 00:00 IMPRESSION: NEGATIVE STUDY OF THE LEFT SHOULDER. NO RADIOGRAPHIC EVIDENCE OF ACUTE INJURY. Hip X-Ray 10/11/18 00:00 IMPRESSION: Intra procedural imaging and fluoro Chest X-Ray 10/13/18 00:00 IMPRESSION: PERSISTENT ELEVATION OF THE RIGHT HEMIDIAPHRAGM WITH RIGHT BASILAR ATELECTASIS. Status: Imported from PACS Assessment & Plan - Diagnosis (1) Nondisplaced intertrochanteric fracture of femur Qualifiers: Encounter type: initial encounter Fracture type: closed Laterality: left Qualified Code(s): S72.145A - Nondisplaced intertrochanteric fracture of left femur, initial encounter for closed fracture Is this a current diagnosis for this admission?: Yes Plan: Mobilized with physical therapy and weightbearing as tolerated basis. Anticipate the need for jail facility placement when medically appropriate. (2) Rotator cuff arthropathy of left shoulder Is this a current diagnosis for this admission?: Yes
[2018-10-15] MEDS: INSULIN LISPRO 100 UNIT/ML 3 ML VIAL SUBCUT SCH ×4 (07:37→23:37)
[2018-10-15] MEDS: ESCITALOPRAM OXALATE 10 MG TABLET PO SCH (09:09)
[2018-10-15] MEDS: CARVEDILOL 12.5 MG TABLET PO SCH ×2 (09:09→23:36)
[2018-10-15] MEDS: FOLIC ACID/VITAMIN B COMP W-C CAPSULE PO SCH (09:09)
[2018-10-15] MEDS: ISOSORBIDE MONONITRATE 30 MG TAB.ER.24H PO SCH (09:09)
[2018-10-15] MEDS: ARIPIPRAZOLE 2 MG TABLET PO SCH (09:09)
[2018-10-15] MEDS: FINASTERIDE 5 MG TABLET PO SCH (09:09)
[2018-10-15] MEDS: ASPIRIN 81 MG TABLET, ENT COATED PO SCH (09:09)
[2018-10-15] MEDS: CALCIUM CARBONATE 500 MG TABLET PO SCH ×2 (09:09→17:08)
[2018-10-15] MEDS: DOCUSATE SODIUM 100 MG CAPSULE PO SCH ×2 (09:09→17:08)
--- NOTE | 2018-10-15 10:00 | PDOC PROGRESS REPORT ---
Subjective Progress Note for:: 10/15/18 Subjective:: Patient seen resting in bed. He is awake, alert, oriented x3. He denies any chest pain, shortness of breath or dyspnea at rest. He denies any nausea, vomiting or abdominal pain. He denies any diarrhea or dysuria. He denies any fevers or chills. He states pain in the left hip is much improved since yesterday. He was able to move a little more with physical therapy earlier this morning. He continues to have significant pain that she is making his postop recovery slow. He denies any other arthralgias or myalgias. Remaining review of systems are negative. [id number]-old male admitted for left intertrochanteric fracture status post surgery patient is on peritoneal dialysis waiting for nursing home placement facility placement and he is confused and agitated this morning. Unable to communicate well. Reason For Visit: HIP FRACTURE,ESRD Physical Exam Vital Signs: Temp Pulse Resp BP Pulse Ox 97.9 F 78 18 147/57 H 94 10/15/18 07:28 10/15/18 07:58 10/15/18 07:58 10/15/18 07:28 10/15/18 07:58 Intake & Output 10/14/18 10/15/18 10/16/18 06:59 06:59 06:59 Intake Total 99473 28166 Output Total 69534 9875 Balance -120 1867 Weight 100.4 kg 97.1 kg General appearance: PRESENT: mild distress Head exam: PRESENT: atraumatic Eye exam: PRESENT: PERRLA Mouth exam: PRESENT: moist, tongue midline Teeth exam: PRESENT: poor dentation Neck exam: ABSENT: carotid bruit, JVD, lymphadenopathy, thyromegaly Respiratory exam: PRESENT: decreased breath sounds Cardiovascular exam: PRESENT: RRR. ABSENT: diastolic murmur, rubs, systolic murmur GI/Abdominal exam: PRESENT: normal bowel sounds, soft, other - Peritoneal dialysis catheter in place.. ABSENT: distended, guarding, mass, organolmegaly, rebound, tenderness Rectal exam: PRESENT: deferred Gentrourinary exam: PRESENT: indwelling catheter Neurological exam: PRESENT: altered Psychiatric exam: PRESENT: agitated, anxious Results Laboratory Results: 10/14/18 04:07 10/14/18 04:07 10/08/18 10/08/18 10/09/18 21:30 21:30 03:30 Creatine Kinase 78 51 L CK-MB (CK-2) 3.98 Troponin I 0.031 10/09/18 10/09/18 10/09/18 03:30 09:12 09:12 Creatine Kinase 56 CK-MB (CK-2) 3.52 3.00 Troponin I 0.034 0.038 10/12/18 10/13/18 05:10 05:10 Creatine Kinase CK-MB (CK-2) Troponin I 0.033 0.045 Impressions: Lower Extremity CT 10/08/18 19:50 IMPRESSION: Acute nondisplaced left femoral intertrochanteric fracture. Shoulder X-Ray 10/09/18 00:00 IMPRESSION: NEGATIVE STUDY OF THE LEFT SHOULDER. NO RADIOGRAPHIC EVIDENCE OF ACUTE INJURY. Hip X-Ray 10/11/18 00:00 IMPRESSION: Intra procedural imaging and fluoro Chest X-Ray 10/13/18 00:00 IMPRESSION: PERSISTENT ELEVATION OF THE RIGHT HEMIDIAPHRAGM WITH RIGHT BASILAR ATELECTASIS. Assessment and Plan - Diagnosis (1) Nondisplaced intertrochanteric fracture of femur Qualifiers: Encounter type: initial encounter Fracture type: closed Laterality: left Qualified Code(s): S72.145A - Nondisplaced intertrochanteric fracture of left femur, initial encounter for closed fracture Is this a current diagnosis for this admission?: Yes Plan: Now s/p ORIF day #[address] Shelley Patient is admitted to the medical floor. We will defer postoperative DVT prophylaxis to their expertise; Dr. Shelley has started daily aspirin therapy. Analgesics as needed. PT/OT are consulted. Discharge planning consulted for placement. Patient will need short-term rehab 10/15/2018-status post ORIF day 4. No acute events in the last 24 hours. DVT prophylaxis management as per orthopedic team. PT OT are consulted waiting for placement. (2) Anemia in chronic kidney disease Is this a current diagnosis for this admission?: Yes Plan: At baseline; hemoglobin 11.7 on admission. Has trended down to 9.0 During his last admission his hemoglobin was stable at 8.5-9. Nephrology is consulted; will defer to their expertise. Has received erythropoietin this admission. Dr. Evans has seen patient in consult for nephrology Continue peritoneal dialysis per his orders. 10/15/2018-patient has a history of anemia of chronic disease. Globin is 8.7 dropped from 9. Nephrology is on board. PLAN is to continue peritoneal dialysis. (3) Chronic renal failure, stage 5 Is this a current diagnosis for this admission?: Yes Plan: Oliguric; receives peritoneal dialysis. Nephrology is consulted; management per their expertise. 10/15/2018-patient is on peritoneal dialysis. He has a Moraes's catheter good amount of urine present in the catheter bag. Nephrology on board. (4) Diabetes mellitus type 2 in obese Is this a current diagnosis for this admission?: Yes Plan: Patient's appetite is good continue home medications and sliding scale coverage. 10/15/2018-patient blood sugar is 257 on insulin sliding scale. To check hemoglobin A1c and start on Lantus 10 units twice a day. (5) HTN (hypertension) Is this a current diagnosis for this admission?: Yes Plan: 10/15/2018-patient has history of chronic hypertension blood pressure is 115/50 stable plan is to continue the present management. - Time Time Spent with patient: 25-34 minutes Anticipated discharge: SNF
[2018-10-15] MEDS: INSULIN GLARGINE,HUM.REC.ANLOG 1,000 UNIT/10 ML VIAL SUBCUT SCH ×2 (11:06→23:35)
[2018-10-15 16:41] LABS: APPEARANCE,URINE TURBID; BILIRUBIN,URINE NEGATIVE (NEGATIVE); COLOR,URINE YELLOW; GLUCOSE, URINE 50 mg/dL (NEGATIVE); KETONES,URINE TRACE mg/dL (NEGATIVE); LEUKOCYTE ESTERASE,URINE SMALL (NEGATIVE); NITRITE,URINE NEGATIVE (NEGATIVE); PROTEIN,URINE 100 mg/dL (NEGATIVE); URINE SPECIFIC GRAVITY 1.019; UROBILINOGEN,URINE NEGATIVE mg/dL (<2.0)
[2018-10-15] MEDS: ATORVASTATIN CALCIUM 80 MG TABLET PO SCH (23:37)
[2018-10-15] MEDS: FAMOTIDINE 20 MG TABLET PO SCH (23:37)
[2018-10-16] MEDS: IPRATROPIUM/ALBUTEROL 0.5-2.5 MG/3 ML AMPUL NEB SCH ×4 (00:02→23:54)
[2018-10-16] MEDS: FENTANYL CITRATE INJ/PF 100 MCG/2 ML AMPUL IV PRN (02:08)
[2018-10-16] MEDS: PANTOPRAZOLE SODIUM 20 MG TABLET.DR PO SCH (05:44)
[2018-10-16] MEDS: OXYCODONE-ACETAMINOPHEN 5-325 MG TABLET PO PRN ×3 (05:47→20:02)
[2018-10-16] MEDS: HEPARIN SOD (PORCINE) 5,000 UNIT/ML 1 ML VIAL SUBCUT SCH ×3 (06:33→22:03)
[2018-10-16] MEDS: INSULIN LISPRO 100 UNIT/ML 3 ML VIAL SUBCUT SCH ×4 (07:40→22:03)
[2018-10-16 07:50] LABS: HEMATOCRIT 25.9 % (37.9-51.0); HEMOGLOBIN 8.3 g/dL (13.5-17.0); MEAN CORPUSCULAR HEMOGLOBIN 30.5 pg (27.0-33.4); MEAN CORPUSCULAR HGB CONC 31.9 g/dL (32.0-36.0); MEAN CORPUSCULAR VOLUME 96 fl (80-97); PLATELET COUNT 302 10^3/uL (150-450); RED BLOOD COUNT 2.72 10^6/uL (4.35-5.55); RED CELL DISTRIBUTION WIDTH 17.2 % (11.5-14.0)
[2018-10-16 08:14] LABS: ALANINE AMINOTRANSFERASE 14 U/L (21-72); ALBUMIN 2.5 g/dL (3.5-5.0); ALKALINE PHOSPHATASE 98 U/L (38-126); ANION GAP 11 (5-19); ASPARTATE AMINO TRANSFERASE 22 U/L (17-59); BILIRUBIN,DIRECT 0.4 mg/dL (0.0-0.4); BILIRUBIN,TOTAL 0.4 mg/dL (0.2-1.3); BLOOD UREA NITROGEN 41 mg/dL (7-20); CALCIUM 8.7 mg/dL (8.4-10.2); CARBON DIOXIDE 30 mmol/L (22-30); CHLORIDE 94 mmol/L (98-107); GLUCOSE 197 mg/dL (75-110); POTASSIUM 3.6 mmol/L (3.6-5.0); TOTAL PROTEIN 5.5 g/dL (6.3-8.2)
[2018-10-16 08:21] LABS: ABSOLUTE LYMPHOCYTES# (MANUAL) 0.3 10^3/uL (0.5-4.7); BASOPHILS % (MANUAL) 0 % (0-2); EOSINOPHILS % (MANUAL) 1 % (0-6); LYMPHOCYTES % (MANUAL) 2 % (13-45); MONOCYTES % (MANUAL) 6 % (3-13); SEGMENTED NEUTROPHILS % (MAN) 91 % (42-78); TOTAL CELLS COUNTED 100
[2018-10-16 08:22] LABS: ANISOCYTOSIS 1+; PLATELET COMMENT ADEQUATE; POLYCHROMASIA SLIGHT
--- NOTE | 2018-10-16 09:07 | PDOC PROGRESS REPORT ---
Subjective Progress Note for:: 10/16/18 Subjective:: Patient seen resting in bed. He is awake, alert, oriented x3. He denies any chest pain, shortness of breath or dyspnea at rest. He denies any nausea, vomiting or abdominal pain. He denies any diarrhea or dysuria. He denies any fevers or chills. He states pain in the left hip is much improved since yesterday. He was able to move a little more with physical therapy earlier this morning. He continues to have significant pain that she is making his postop recovery slow. He denies any other arthralgias or myalgias. Remaining review of systems are negative. [id number]-old male admitted for left intertrochanteric fracture status post surgery patient is on peritoneal dialysis waiting for longterm placement facility placement and he is confused and agitated this morning. Unable to communicate well. 10/16/2018 68-year-old male with history of end-stage renal disease on peritoneal dialysis admitted for left intertrochanteric fracture status post surgery it looks much better today alert and awake oriented able to give his date of today. He has a low-grade fever of 99.2 and pulse ox is 91% on 5 L. WBC count went up to 16,000 from 13,800. Chest x-ray was done today waiting for the report and started on IV Rocephin 2 g daily. Urinalysis done shows turbidity with trace of leukocyte esterase positive. Reason For Visit: HIP FRACTURE,ESRD Physical Exam Vital Signs: Temp Pulse Resp BP Pulse Ox 99.2 F 78 12 116/56 L 80 L 10/16/18 05:47 10/16/18 08:34 10/16/18 08:34 10/16/18 05:47 10/16/18 08:34 Intake & Output 10/15/18 10/16/18 10/17/18 06:59 06:59 06:59 Intake Total 86858 80895 Output Total 9875 27721 Balance 1867 110 Weight 97.1 kg 97.5 kg General appearance: PRESENT: no acute distress, obese Head exam: PRESENT: atraumatic Eye exam: PRESENT: PERRLA Mouth exam: PRESENT: moist, tongue midline Neck exam: ABSENT: carotid bruit, JVD, lymphadenopathy, thyromegaly Respiratory exam: PRESENT: decreased breath sounds Cardiovascular exam: PRESENT: RRR. ABSENT: diastolic murmur, rubs, systolic murmur GI/Abdominal exam: PRESENT: normal bowel sounds, soft. ABSENT: distended, guarding, mass, organolmegaly, rebound, tenderness Rectal exam: PRESENT: deferred Gentrourinary exam: PRESENT: indwelling catheter Neurological exam: PRESENT: alert, awake, oriented to person, oriented to place, oriented to time, oriented to situation, CN II-XII grossly intact. ABSENT: motor sensory deficit Psychiatric exam: PRESENT: appropriate affect, normal mood. ABSENT: homicidal ideation, suicidal ideation Results Laboratory Results: 10/16/18 06:58 10/16/18 06:58 10/15/18 10/16/18 10/16/18 16:02 06:58 06:58 WBC 16.0 H RBC 2.72 L Hgb 8.3 L Hct 25.9 L MCV 96 MCH 30.5 MCHC 31.9 L RDW 17.2 H Plt Count 302 Seg Neutrophils % Not Reportable Lymphocytes % Not Reportable Monocytes % Not Reportable Eosinophils % Not Reportable Basophils % Not Reportable Absolute Neutrophils Not Reportable Absolute Lymphocytes Not Reportable Absolute Monocytes Not Reportable Absolute Eosinophils Not Reportable Absolute Basophils Not Reportable Sodium 134.9 L Potassium 3.6 Chloride 94 L Carbon Dioxide 30 Anion Gap 11 BUN 41 H Creatinine 6.94 H Est GFR ( Amer) 10 L Est GFR (Non-Af Amer) 8 L Glucose 197 H Calcium 8.7 Magnesium 1.6 Total Bilirubin 0.4 AST 22 ALT 14 L Alkaline Phosphatase 98 Total Protein 5.5 L Albumin 2.5 L Urine Color YELLOW Urine Appearance TURBID Urine pH 5.0 Ur Specific [place] 1.019 Urine Protein 100 H Urine Glucose (UA) 50 H Urine Ketones TRACE H Urine Blood SMALL H Urine Nitrite NEGATIVE Ur Leukocyte Esterase SMALL H Urine WBC (Auto) >182 Urine RBC (Auto) >182 10/08/18 10/08/18 10/09/18 21:30 21:30 03:30 Creatine Kinase 78 51 L CK-MB (CK-2) 3.98 Troponin I 0.031 10/09/18 10/09/18 10/09/18 03:30 09:12 09:12 Creatine Kinase 56 CK-MB (CK-2) 3.52 3.00 Troponin I 0.034 0.038 10/12/18 10/13/18 05:10 05:10 Creatine Kinase CK-MB (CK-2) Troponin I 0.033 0.045 Impressions: Lower Extremity CT 10/08/18 19:50 IMPRESSION: Acute nondisplaced left femoral intertrochanteric fracture. Shoulder X-Ray 10/09/18 00:00 IMPRESSION: NEGATIVE STUDY OF THE LEFT SHOULDER. NO RADIOGRAPHIC EVIDENCE OF ACUTE INJURY. Hip X-Ray 10/11/18 00:00 IMPRESSION: Intra procedural imaging and fluoro Assessment and Plan - Diagnosis (1) Nondisplaced intertrochanteric fracture of femur Qualifiers: Encounter type: initial encounter Fracture type: closed Laterality: left Qualified Code(s): S72.145A - Nondisplaced intertrochanteric fracture of left femur, initial encounter for closed fracture Is this a current diagnosis for this admission?: Yes Plan: Now s/p ORIF day #[address] Shelley Patient is admitted to the medical floor. We will defer postoperative DVT prophylaxis to their expertise; Dr. Shelley has started daily aspirin therapy. Analgesics as needed. PT/OT are consulted. Discharge planning consulted for placement. Patient will need short-term rehab 10/15/2018-status post ORIF day 4. No acute events in the last 24 hours. DVT prophylaxis management as per orthopedic team. PT OT are consulted waiting for placement. 10/16/2018-status post ORIF day 5. DVT prophylaxis management as per orthopedic team. PT OT consult was done and waiting for placement. (2) Anemia in chronic kidney disease Is this a current diagnosis for this admission?: Yes Plan: At baseline; hemoglobin 11.7 on admission. Has trended down to 9.0 During his last admission his hemoglobin was stable at 8.5-9. Nephrology is consulted; will defer to their expertise. Has received erythropoietin this admission. Dr. Evans has seen patient in consult for nephrology Continue peritoneal dialysis per his orders. 10/15/2018-patient has a history of anemia of chronic disease. Globin is 8.7 dropped from 9. Nephrology is on board. PLAN is to continue peritoneal dialysis. 10/16/2018-patient hemoglobin is 8.7 stable nephrology on board. Patient received erythropoietin during this admission. Anemia of chronic disease most likely secondary to CKD. (3) Chronic renal failure, stage 5 Is this a current diagnosis for this admission?: Yes Plan: Oliguric; receives peritoneal dialysis. Nephrology is consulted; management per their expertise. 10/15/2018-patient is on peritoneal dialysis. He has a Moraes's catheter good amount of urine present in the catheter bag. Nephrology on board. 10/16/2018-patient is receiving peritoneal dialysis. He still makes urine. His urinary output is 450 ML in the last 24 hours.. (4) Diabetes mellitus type 2 in obese Is this a current diagnosis for this admission?: Yes Plan: Patient's appetite is good continue home medications and sliding scale coverage. 10/15/2018-patient blood sugar is 257 on insulin sliding scale. To check hemoglobin A1c and start on Lantus 10 units twice a day. 10/16/2018-patient latest blood sugar is 87 with hemoglobin A1c of around 7. Plan is to continue the present management. (5) HTN (hypertension) Is this a current diagnosis for this admission?: Yes Plan: 10/15/2018-patient has history of chronic hypertension blood pressure is 115/50 stable plan is to continue the present management. 10/16/2018-patient blood pressure today is 116/56 stable. Plan is to continue the present management. - Time Time Spent with patient: 25-34 minutes Medications reviewed and adjusted accordingly: Yes Anticipated discharge: SNF
--- NOTE | 2018-10-16 09:17 | RADIOLOGY REPORT (SQ) ---
EXAM DESCRIPTION: CHEST SINGLE VIEW COMPLETED DATE/TIME: 10/16/2018 8:57 am REASON FOR STUDY: Shortness of breath COMPARISON: 10/13/2018 EXAM PARAMETERS: NUMBER OF VIEWS: One view. TECHNIQUE: Single frontal radiographic view of the chest acquired. RADIATION DOSE: NA LIMITATIONS: None. FINDINGS: LUNGS AND PLEURA: Unchanged elevation of the right hemidiaphragm with mild right basilar a telectasis. No new airspace disease, pleural effusion or pneumothorax. MEDIASTINUM AND HILAR STRUCTURES: No masses. Contour normal. HEART AND VASCULAR STRUCTURES: Heart normal in size. Aortic atherosclerosis. . BONES: Decreased mineralization with degenerative changes at the shoulders. No acute findings. HARDWARE: None in the chest. OTHER: No other significant finding. IMPRESSION: Unchanged elevation of the right hemidiaphragm with right basilar atelectasis. No evide nce of new cardiopulmonary process. TECHNICAL DOCUMENTATION: JOB ID: [id number] [employer]- All Rights Reserved Reading location - IP/workstation name: [email or web address]
[2018-10-16] MEDS: ESCITALOPRAM OXALATE 10 MG TABLET PO SCH (10:17)
[2018-10-16] MEDS: FINASTERIDE 5 MG TABLET PO SCH (10:17)
[2018-10-16] MEDS: DOCUSATE SODIUM 100 MG CAPSULE PO SCH ×2 (10:17→17:21)
[2018-10-16] MEDS: FOLIC ACID/VITAMIN B COMP W-C CAPSULE PO SCH (10:18)
[2018-10-16] MEDS: CARVEDILOL 12.5 MG TABLET PO SCH ×2 (10:18→22:08)
[2018-10-16] MEDS: INSULIN GLARGINE,HUM.REC.ANLOG 1,000 UNIT/10 ML VIAL SUBCUT SCH ×2 (10:18→22:03)
[2018-10-16] MEDS: ASPIRIN 81 MG TABLET, ENT COATED PO SCH (10:18)
[2018-10-16] MEDS: ISOSORBIDE MONONITRATE 30 MG TAB.ER.24H PO SCH (10:18)
[2018-10-16] MEDS: CALCIUM CARBONATE 500 MG TABLET PO SCH ×2 (10:18→17:21)
[2018-10-16] MEDS: ARIPIPRAZOLE 2 MG TABLET PO SCH (10:19)
[2018-10-16] MEDS: CEFTRIAXONE 2 GM/D5W RTU 2 GM/50 ML RTUPB IV SCH (10:35)
[2018-10-16] MEDS: ATORVASTATIN CALCIUM 80 MG TABLET PO SCH (21:54)
[2018-10-16] MEDS: FAMOTIDINE 20 MG TABLET PO SCH (22:02)
[2018-10-17] MEDS ORDERED: NORMAL SALINE 250 ML IV ONE (01:00)
[2018-10-17] MEDS: OXYCODONE-ACETAMINOPHEN 5-325 MG TABLET PO PRN ×2 (02:34→09:36)
[2018-10-17 05:44] LABS: ABSOLUTE BASOPHILS # (AUTO) 0.1 10^3/uL (0.0-0.2); ABSOLUTE EOSINOPHILS # (AUTO) 0.3 10^3/uL (0.0-0.6); ABSOLUTE LYMPHOCYTES (AUTO) 0.9 10^3/uL (0.5-4.7); ABSOLUTE MONOCYTES (AUTO) 1.4 10^3/uL (0.1-1.4); ABSOLUTE NEUT (AUTO) 12.9 10^3/uL (1.7-8.2); BASOPHILS % (AUTO) 0.9 % (0-2); HEMATOCRIT 25.3 % (37.9-51.0); HEMOGLOBIN 8.2 g/dL (13.5-17.0); LYMPHOCYTES % (AUTO) 5.5 % (13-45); MEAN CORPUSCULAR HEMOGLOBIN 30.9 pg (27.0-33.4); MEAN CORPUSCULAR HGB CONC 32.3 g/dL (32.0-36.0); MEAN CORPUSCULAR VOLUME 96 fl (80-97); MONOCYTES % (AUTO) 8.7 % (3-13); PLATELET COUNT 282 10^3/uL (150-450); RED BLOOD COUNT 2.65 10^6/uL (4.35-5.55); RED CELL DISTRIBUTION WIDTH 17.3 % (11.5-14.0); SEGMENTED NEUTROPHILS % (AUTO) 82.9 % (42-78); TOTAL CELLS COUNTED % (AUTO) 100 %; WHITE BLOOD COUNT 15.5 10^3/uL (4.0-10.5)
[2018-10-17 06:15] LABS: ALANINE AMINOTRANSFERASE 12 U/L (21-72); ALBUMIN 2.5 g/dL (3.5-5.0); ALKALINE PHOSPHATASE 95 U/L (38-126); ANION GAP 9 (5-19); ASPARTATE AMINO TRANSFERASE 27 U/L (17-59); BILIRUBIN,DIRECT 0.3 mg/dL (0.0-0.4); BILIRUBIN,TOTAL 0.3 mg/dL (0.2-1.3); BLOOD UREA NITROGEN 44 mg/dL (7-20); CALCIUM 8.6 mg/dL (8.4-10.2); CARBON DIOXIDE 29 mmol/L (22-30); CHLORIDE 97 mmol/L (98-107); GLUCOSE 132 mg/dL (75-110); POTASSIUM 3.6 mmol/L (3.6-5.0); TOTAL PROTEIN 5.4 g/dL (6.3-8.2)
[2018-10-17] MEDS: HEPARIN SOD (PORCINE) 5,000 UNIT/ML 1 ML VIAL SUBCUT SCH ×3 (06:27→21:54)
[2018-10-17] MEDS: PANTOPRAZOLE SODIUM 20 MG TABLET.DR PO SCH (06:27)
[2018-10-17] MEDS: IPRATROPIUM/ALBUTEROL 0.5-2.5 MG/3 ML AMPUL NEB SCH ×2 (09:06→16:27)
[2018-10-17] MEDS: CEFTRIAXONE 2 GM/D5W RTU 2 GM/50 ML RTUPB IV SCH (09:36)
[2018-10-17] MEDS: FINASTERIDE 5 MG TABLET PO SCH (09:36)
[2018-10-17] MEDS: FOLIC ACID/VITAMIN B COMP W-C CAPSULE PO SCH (09:37)
[2018-10-17] MEDS: ASPIRIN 81 MG TABLET, ENT COATED PO SCH (09:37)
[2018-10-17] MEDS: CALCIUM CARBONATE 500 MG TABLET PO SCH ×2 (09:37→17:43)
[2018-10-17] MEDS: ISOSORBIDE MONONITRATE 30 MG TAB.ER.24H PO SCH (09:37)
[2018-10-17] MEDS: DOCUSATE SODIUM 100 MG CAPSULE PO SCH ×2 (09:37→17:43)
[2018-10-17] MEDS: CARVEDILOL 12.5 MG TABLET PO SCH (09:38)
[2018-10-17] MEDS: ESCITALOPRAM OXALATE 10 MG TABLET PO SCH (09:38)
[2018-10-17] MEDS: ARIPIPRAZOLE 2 MG TABLET PO SCH (09:38)
[2018-10-17] MEDS: INSULIN LISPRO 100 UNIT/ML 3 ML VIAL SUBCUT SCH ×4 (09:39→21:58)
[2018-10-17] MEDS: INSULIN GLARGINE,HUM.REC.ANLOG 1,000 UNIT/10 ML VIAL SUBCUT SCH (09:49)
--- NOTE | 2018-10-17 09:49 | PDOC PROGRESS REPORT ---
Subjective Progress Note for:: 10/17/18 Subjective:: Patient seen resting in bed. He is awake, alert, oriented x3. He denies any chest pain, shortness of breath or dyspnea at rest. He denies any nausea, vomiting or abdominal pain. He denies any diarrhea or dysuria. He denies any fevers or chills. He states pain in the left hip is much improved since yesterday. He was able to move a little more with physical therapy earlier this morning. He continues to have significant pain that she is making his postop recovery slow. He denies any other arthralgias or myalgias. Remaining review of systems are negative. 10/15/[id number]-mcgm-old male admitted for left intertrochanteric fracture status post surgery patient is on peritoneal dialysis waiting for senior care placement facility placement and he is confused and agitated this morning. Unable to communicate well. 10/16/2018 68-year-old male with history of end-stage renal disease on peritoneal dialysis admitted for left intertrochanteric fracture status post surgery it looks much better today alert and awake oriented able to give his date of today. He has a low-grade fever of 99.2 and pulse ox is 91% on 5 L. WBC count went up to 16,000 from 13,800. Chest x-ray was done today waiting for the report and started on IV Rocephin 2 g daily. Urinalysis done shows turbidity with trace of leukocyte esterase positive. 10/17/[id number]-unwd-old male with end-stage renal disease on peritoneal dialysis admitted with left intertrochanteric fracture status post surgery. He was little bit more confused today compared to yesterday. Probably these fluctuation in the mental status may be secondary to age-related. No acute events in the last 24 hours. The nurse is telling me patient is hypotensive last night he gets a bolus of IV fluids. Plan is to decrease Coreg to 6.25 mg p.o. twice daily and continue isosorbide at this moment. As per the nurse patient's appetite is poor plan is to cut down his Lantus from today. And continue sliding scale. Reason For Visit: HIP FRACTURE,ESRD Physical Exam Vital Signs: Temp Pulse Resp BP Pulse Ox 97.3 F 69 20 115/98 H 92 10/17/18 08:00 10/17/18 09:22 10/17/18 09:22 10/17/18 08:00 10/17/18 09:22 Intake & Output 10/16/18 10/17/18 10/18/18 06:59 06:59 06:59 Intake Total 16034 8000 2500 Output Total 76305 8000 1400 Balance 110 0 1100 Weight 97.5 kg 97.5 kg 98.2 kg General appearance: PRESENT: no acute distress, obese, other - Patient is looks tired and lethargic today. But responding to verbal commands properly. Head exam: PRESENT: atraumatic Eye exam: PRESENT: PERRLA Mouth exam: PRESENT: moist, tongue midline Neck exam: ABSENT: carotid bruit, JVD, lymphadenopathy, thyromegaly Respiratory exam: PRESENT: clear to auscultation yair. ABSENT: rales, rhonchi, wheezes Cardiovascular exam: PRESENT: RRR. ABSENT: diastolic murmur, rubs, systolic murmur GI/Abdominal exam: PRESENT: normal bowel sounds, soft. ABSENT: distended, guarding, mass, organolmegaly, rebound, tenderness Rectal exam: PRESENT: deferred Gentrourinary exam: PRESENT: indwelling catheter Extremities exam: PRESENT: full ROM. ABSENT: calf tenderness, clubbing, pedal edema Neurological exam: PRESENT: CN II-XII grossly intact, other - pt is not confused but looks lethargic this morning. Psychiatric exam: PRESENT: appropriate affect, normal mood. ABSENT: homicidal ideation, suicidal ideation Results Laboratory Results: 10/17/18 05:16 10/17/18 05:16 10/17/18 10/17/18 05:16 05:16 WBC 15.5 H RBC 2.65 L Hgb 8.2 L Hct 25.3 L MCV 96 MCH 30.9 MCHC 32.3 RDW 17.3 H Plt Count 282 Seg Neutrophils % 82.9 H Lymphocytes % 5.5 L Monocytes % 8.7 Eosinophils % 2.0 Basophils % 0.9 Absolute Neutrophils 12.9 H Absolute Lymphocytes 0.9 Absolute Monocytes 1.4 Absolute Eosinophils 0.3 Absolute Basophils 0.1 Sodium 135.3 L Potassium 3.6 Chloride 97 L Carbon Dioxide 29 Anion Gap 9 BUN 44 H Creatinine 6.70 H Est GFR ( Amer) 10 L Est GFR (Non-Af Amer) 8 L Glucose 132 H Calcium 8.6 Magnesium 1.6 Total Bilirubin 0.3 AST 27 ALT 12 L Alkaline Phosphatase 95 Total Protein 5.4 L Albumin 2.5 L 10/08/18 10/08/18 10/09/18 21:30 21:30 03:30 Creatine Kinase 78 51 L CK-MB (CK-2) 3.98 Troponin I 0.031 10/09/18 10/09/18 10/09/18 03:30 09:12 09:12 Creatine Kinase 56 CK-MB (CK-2) 3.52 3.00 Troponin I 0.034 0.038 10/12/18 10/13/18 05:10 05:10 Creatine Kinase CK-MB (CK-2) Troponin I 0.033 0.045 Impressions: Lower Extremity CT 10/08/18 19:50 IMPRESSION: Acute nondisplaced left femoral intertrochanteric fracture. Shoulder X-Ray 10/09/18 00:00 IMPRESSION: NEGATIVE STUDY OF THE LEFT SHOULDER. NO RADIOGRAPHIC EVIDENCE OF ACUTE INJURY. Hip X-Ray 10/11/18 00:00 IMPRESSION: Intra procedural imaging and fluoro Chest X-Ray 10/16/18 00:00 IMPRESSION: Unchanged elevation of the right hemidiaphragm with right basilar atelectasis. No evidence of new cardiopulmonary process. Assessment and Plan - Diagnosis (1) Nondisplaced intertrochanteric fracture of femur Qualifiers: Encounter type: initial encounter Fracture type: closed Laterality: left Qualified Code(s): S72.145A - Nondisplaced intertrochanteric fracture of left femur, initial encounter for closed fracture Is this a current diagnosis for this admission?: Yes Plan: Now s/p ORIF day #[address] Shelley Patient is admitted to the medical floor. We will defer postoperative DVT prophylaxis to their expertise; Dr. Shelley has started daily aspirin therapy. Analgesics as needed. PT/OT are consulted. Discharge planning consulted for placement. Patient will need short-term rehab 10/15/2018-status post ORIF day 4. No acute events in the last 24 hours. DVT prophylaxis management as per orthopedic team. PT OT are consulted waiting for placement. 10/16/2018-status post ORIF day 5. DVT prophylaxis management as per orthopedic team. PT OT consult was done and waiting for placement. 10/17/2018-postop ORIF day 6. Ortho follow-up which appreciated. I did not see any notes from Ortho yesterday. Start the patient back on DVT prophylaxis. (2) Anemia in chronic kidney disease Is this a current diagnosis for this admission?: Yes Plan: At baseline; hemoglobin 11.7 on admission. Has trended down to 9.0 During his last admission his hemoglobin was stable at 8.5-9. Nephrology is consulted; will defer to their expertise. Has received erythropoietin this admission. Dr. Evans has seen patient in consult for nephrology Continue peritoneal dialysis per his orders. 10/15/2018-patient has a history of anemia of chronic disease. Globin is 8.7 dropped from 9. Nephrology is on board. PLAN is to continue peritoneal dialysis. 10/16/2018-patient hemoglobin is 8.7 stable nephrology on board. Patient received erythropoietin during this admission. Anemia of chronic disease most likely secondary to CKD. 10/17/2018-patient's hemoglobin is 8.2 slowly dropping. He received erythropoietin during the hospital stay further management will be deferred to dr Evans. (3) Chronic renal failure, stage 5 Is this a current diagnosis for this admission?: Yes Plan: Oliguric; receives peritoneal dialysis. Nephrology is consulted; management per their expertise. 10/15/2018-patient is on peritoneal dialysis. He has a Moraes's catheter good amount of urine present in the catheter bag. Nephrology on board. 10/16/2018-patient is receiving peritoneal dialysis. He still makes urine. His urinary output is 450 ML in the last 24 hours.. 10/17/2018-patient has end-stage renal disease on peritoneal dialysis. Management as per Dr. Evans. (4) Diabetes mellitus type 2 in obese Is this a current diagnosis for this admission?: Yes Plan: Patient's appetite is good continue home medications and sliding scale coverage. 10/15/2018-patient blood sugar is 257 on insulin sliding scale. To check hemoglobin A1c and start on Lantus 10 units twice a day. 10/16/2018-patient latest blood sugar is 87 with hemoglobin A1c of around 7. Plan is to continue the present management. 10/17/2018-patient blood sugar is 165 this morning patient is a poor appetite plan is to hold his Lantus. Hemoglobin A1c is around 7. (5) HTN (hypertension) Is this a current diagnosis for this admission?: Yes Plan: 10/15/2018-patient has history of chronic hypertension blood pressure is 115/50 stable plan is to continue the present management. 10/16/2018-patient blood pressure today is 116/56 stable. Plan is to continue the present management. 10/07/2018-patient became hypotensive last night received a bolus of IV fluids blood pressure this morning is 105/60 plan is to cut down the Coreg to 6.25 mg p.o. twice daily and continue isosorbide. - Time Time Spent with patient: 25-34 minutes Medications reviewed and adjusted accordingly: Yes Anticipated discharge: SNF
[2018-10-17] MEDS ORDERED: CARVEDILOL 12.5 MG TABLET PO SCH (10:00)
[2018-10-17] MEDS ORDERED: CARVEDILOL 6.25 MG TABLET PO SCH (10:00)
[2018-10-17] MEDS: LACTULOSE SYRUP 20 GM/30 ML UDCUP PO PRN (16:09)
[2018-10-17] MEDS ORDERED: NORMAL SALINE 1000 ML 250 ML IV PRN (16:50)
[2018-10-17] MEDS: FLUCONAZOLE 100 MG TABLET PO SCH (17:43)
--- NOTE | 2018-10-17 18:37 | RADIOLOGY REPORT (SQ) ---
EXAM DESCRIPTION: KUB/ABDOMEN (SINGLE VIEW) COMPLETED DATE/TIME: 10/17/2018 6:14 pm REASON FOR STUDY: PD catheter placement/ constipation COMPARISON: None. NUMBER OF VIEWS: One view. TECHNIQUE: Supine radiographic image of the abdomen acquired. LIMITATIONS: None. FINDINGS: Images show peritoneal dialysis catheter. IMPRESSION: Catheter placement. TECHNICAL DOCUMENTATION: JOB ID: [id number] [employer]- All Rights Reserved Reading location - IP/workstation name: [email or web address]
[2018-10-17] MEDS ORDERED: GENTAMICIN SULFATE 0.1% OINTMENT 15 GM TP ONE (19:30)
[2018-10-17] MEDS ORDERED: LACTULOSE SYRUP 20 GM/30 ML UDCUP PO PRN (21:00)
[2018-10-17] MEDS: ATORVASTATIN CALCIUM 80 MG TABLET PO SCH (21:50)
[2018-10-17] MEDS: CARVEDILOL 6.25 MG TABLET PO SCH (21:50)
[2018-10-17] MEDS: KETOROLAC TROMETHAMINE INJ/PF 30 MG/1 ML SDV IV PRN (21:53)
--- NOTE | 2018-10-17 22:32 | PDOC PROGRESS REPORT ---
Subjective Progress Note for:: 10/17/18 Subjective:: Patient was seen sitting on the edge of the bed. At the time he was having fluid placed in his abdomen. He currently is not speaking clear sentences. He was giving one schreiber answers that were not relevant to the question that was asked. According to the nurse in charge of his care, he has been like this since she started to take care of him this morning. He having trouble with his exchanges and is not getting adequate fluid out from what he put in. Also half way through the day the exchanges started to slow down for placing fluid in. He has had a couple of small bowel movements today. 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 His blood pressure has also started to drop as his white count has gone up. Reason For Visit: HIP FRACTURE,ESRD Physical Exam Vital Signs: Temp Pulse Resp BP Pulse Ox 97.8 F 64 18 132/47 H 100 10/17/18 20:18 10/17/18 20:18 10/17/18 20:18 10/17/18 20:18 10/17/18 20:18 Intake & Output 10/16/18 10/17/18 10/18/18 06:59 06:59 06:59 Intake Total 26224 8000 5150 Output Total 41178 8000 3200 Balance 110 0 1950 Weight 97.5 kg 97.5 kg 98.2 kg General appearance: PRESENT: no acute distress, disheveled. ABSENT: cooperative Mouth exam: PRESENT: moist, neck supple. ABSENT: dry mucosa Neck exam: ABSENT: JVD, tracheal deviation Respiratory exam: PRESENT: wheezes. ABSENT: accessory muscle use, clear to auscultation yair, crackles - -in the left lower lobe, rales, rhonchi Cardiovascular exam: PRESENT: +S1, +S2 GI/Abdominal exam: PRESENT: normal bowel sounds, soft. ABSENT: organomegaly, tenderness Extremities exam: ABSENT: tenderness, +1 edema, +2 edema Musculoskeletal exam: PRESENT: normal inspection. ABSENT: tenderness Neurological exam: PRESENT: altered, awake. ABSENT: oriented to person, oriented to place, oriented to situation Skin exam: PRESENT: dry, intact, warm. ABSENT: cyanosis Results Laboratory Results: 10/17/18 05:16 10/17/18 05:16 10/17/18 10/17/18 05:16 05:16 WBC 15.5 H RBC 2.65 L Hgb 8.2 L Hct 25.3 L MCV 96 MCH 30.9 MCHC 32.3 RDW 17.3 H Plt Count 282 Seg Neutrophils % 82.9 H Lymphocytes % 5.5 L Monocytes % 8.7 Eosinophils % 2.0 Basophils % 0.9 Absolute Neutrophils 12.9 H Absolute Lymphocytes 0.9 Absolute Monocytes 1.4 Absolute Eosinophils 0.3 Absolute Basophils 0.1 Sodium 135.3 L Potassium 3.6 Chloride 97 L Carbon Dioxide 29 Anion Gap 9 BUN 44 H Creatinine 6.70 H Est GFR ( Amer) 10 L Est GFR (Non-Af Amer) 8 L Glucose 132 H Calcium 8.6 Magnesium 1.6 Total Bilirubin 0.3 AST 27 ALT 12 L Alkaline Phosphatase 95 Total Protein 5.4 L Albumin 2.5 L 10/08/18 10/08/18 10/09/18 21:30 21:30 03:30 Creatine Kinase 78 51 L CK-MB (CK-2) 3.98 Troponin I 0.031 10/09/18 10/09/18 10/09/18 03:30 09:12 09:12 Creatine Kinase 56 CK-MB (CK-2) 3.52 3.00 Troponin I 0.034 0.038 10/12/18 10/13/18 05:10 05:10 Creatine Kinase CK-MB (CK-2) Troponin I 0.033 0.045 Impressions: Lower Extremity CT 10/08/18 19:50 IMPRESSION: Acute nondisplaced left femoral intertrochanteric fracture. Shoulder X-Ray 10/09/18 00:00 IMPRESSION: NEGATIVE STUDY OF THE LEFT SHOULDER. NO RADIOGRAPHIC EVIDENCE OF ACUTE INJURY. Hip X-Ray 10/11/18 00:00 IMPRESSION: Intra procedural imaging and fluoro Chest X-Ray 10/16/18 00:00 IMPRESSION: Unchanged elevation of the right hemidiaphragm with right basilar atelectasis. No evidence of new cardiopulmonary process. KUB X-Ray 10/17/18 00:00 IMPRESSION: Catheter placement. Assessment & Plan - Diagnosis (1) End stage renal disease on dialysis Plan: Currently continuing on PD. Will look to get KUB and lactulose to figure out underling cause of poor input. Decreased output could most likely be from his body absorbing some of the fluid due to the low bp. Will look to get a CVC placed so that he can be placed on back up hemodialysis when he goes to the nursing faciltiy. Due to his AMS consent for CVC placement and hemodialysis had to be done with his daughter and his . Both were made aware of the risks and benefits and both were agreeable to HD and a CVC placement. (2) HTN (hypertension) Is this a current diagnosis for this admission?: Yes Plan: Decreasing carvedilol to 3.125mg bid and stopping the doxazosin. Could be starting to see the being signs of sepsis with the sudden drop in bp, low grade fever and elevated white count. (3) Leukocytosis Qualifiers: Leukocytosis type: unspecified Qualified Code(s): D72.829 - Elevated white blood cell count, unspecified Is this a current diagnosis for this admission?: Yes Plan: possible causes include UTI, possible surgical cite infection and peritonitis. Will look to cell count and culture of PD fluid. Currently on ceftriaxone. (4) Anemia in chronic kidney disease Is this a current diagnosis for this admission?: Yes Plan: will look to get anemia panel and order a shot of 40,000 units of procrit for tomorrow. Last dose was on 10/10. (5) CHF (congestive heart failure) Qualifiers: Heart failure type: unspecified Heart failure chronicity: chronic Qualified Code(s): I50.9 - Heart failure, unspecified Is this a current diagnosis for this admission?: Yes Plan: stable (6) Diabetes mellitus type 2 in obese Is this a current diagnosis for this admission?: Yes Plan: varying, mostly controlled (7) Nondisplaced intertrochanteric fracture of femur Qualifiers: Encounter type: initial encounter Fracture type: closed Laterality: left Qualified Code(s): S72.145A - Nondisplaced intertrochanteric fracture of left femur, initial encounter for closed fracture Is this a current diagnosis for this admission?: Yes Plan: per ortho
[2018-10-17] MEDS ORDERED: EPOETIN ALFA INJ 20000 UNIT/1 ML VIAL (RENAL) SUBCUT SCH (22:45)
[2018-10-18] MEDS: IPRATROPIUM/ALBUTEROL 0.5-2.5 MG/3 ML AMPUL NEB SCH ×3 (00:29→15:40)
[2018-10-18] MEDS: HEPARIN SOD (PORCINE) 5,000 UNIT/ML 1 ML VIAL SUBCUT SCH ×3 (05:35→21:49)
[2018-10-18] MEDS: PANTOPRAZOLE SODIUM 20 MG TABLET.DR PO SCH (05:35)
[2018-10-18] MEDS: KETOROLAC TROMETHAMINE INJ/PF 30 MG/1 ML SDV IV PRN ×2 (05:54→13:57)
[2018-10-18 06:04] LABS: ABSOLUTE BASOPHILS # (AUTO) 0.1 10^3/uL (0.0-0.2); ABSOLUTE EOSINOPHILS # (AUTO) 0.5 10^3/uL (0.0-0.6); ABSOLUTE LYMPHOCYTES (AUTO) 0.8 10^3/uL (0.5-4.7); ABSOLUTE MONOCYTES (AUTO) 0.9 10^3/uL (0.1-1.4); ABSOLUTE NEUT (AUTO) 5.9 10^3/uL (1.7-8.2); BASOPHILS % (AUTO) 1.3 % (0-2); HEMATOCRIT 27.2 % (37.9-51.0); HEMOGLOBIN 8.8 g/dL (13.5-17.0); LYMPHOCYTES % (AUTO) 9.8 % (13-45); MEAN CORPUSCULAR HEMOGLOBIN 31.1 pg (27.0-33.4); MEAN CORPUSCULAR HGB CONC 32.4 g/dL (32.0-36.0); MEAN CORPUSCULAR VOLUME 96 fl (80-97); MONOCYTES % (AUTO) 10.6 % (3-13); PLATELET COUNT 311 10^3/uL (150-450); RED BLOOD COUNT 2.83 10^6/uL (4.35-5.55); RETICULOCYTE COUNT (AUTO) 2.48 % (0.66-2.85); SEGMENTED NEUTROPHILS % (AUTO) 72.3 % (42-78); TOTAL CELLS COUNTED % (AUTO) 100 %; WHITE BLOOD COUNT 8.2 10^3/uL (4.0-10.5)
[2018-10-18 06:15] LABS: ALANINE AMINOTRANSFERASE 13 U/L (21-72); ALBUMIN 2.6 g/dL (3.5-5.0); ALKALINE PHOSPHATASE 101 U/L (38-126); ANION GAP 12 (5-19); ASPARTATE AMINO TRANSFERASE 29 U/L (17-59); BILIRUBIN,DIRECT 0.3 mg/dL (0.0-0.4); BILIRUBIN,TOTAL 0.3 mg/dL (0.2-1.3); BLOOD UREA NITROGEN 46 mg/dL (7-20); CALCIUM 8.3 mg/dL (8.4-10.2); CARBON DIOXIDE 28 mmol/L (22-30); CHLORIDE 97 mmol/L (98-107); GLUCOSE 118 mg/dL (75-110); POTASSIUM 3.2 mmol/L (3.6-5.0); TOTAL PROTEIN 5.6 g/dL (6.3-8.2)
[2018-10-18] MEDS: INSULIN LISPRO 100 UNIT/ML 3 ML VIAL SUBCUT SCH ×4 (07:25→21:49)
[2018-10-18 07:30] LABS: FOLATE > 20.00 ng/mL (>2.76)
[2018-10-18] MEDS ORDERED: POTASSIUM CHLORIDE 10 MEQ CAPSULE.ER PO ONE ×2 (07:41→11:02)
--- NOTE | 2018-10-18 09:29 | PDOC PROGRESS REPORT ---
Subjective Progress Note for:: 10/18/18 Subjective:: Patient seen resting in bed. He is awake, alert, oriented x3. He denies any chest pain, shortness of breath or dyspnea at rest. He denies any nausea, vomiting or abdominal pain. He denies any diarrhea or dysuria. He denies any fevers or chills. He states pain in the left hip is much improved since yesterday. He was able to move a little more with physical therapy earlier this morning. He continues to have significant pain that she is making his postop recovery slow. He denies any other arthralgias or myalgias. Remaining review of systems are negative. 10/15/[id number]-glds-old male admitted for left intertrochanteric fracture status post surgery patient is on peritoneal dialysis waiting for intermediate placement facility placement and he is confused and agitated this morning. Unable to communicate well. 10/16/2018 68-year-old male with history of end-stage renal disease on peritoneal dialysis admitted for left intertrochanteric fracture status post surgery it looks much better today alert and awake oriented able to give his date of today. He has a low-grade fever of 99.2 and pulse ox is 91% on 5 L. WBC count went up to 16,000 from 13,800. Chest x-ray was done today waiting for the report and started on IV Rocephin 2 g daily. Urinalysis done shows turbidity with trace of leukocyte esterase positive. 10/[id number]-fsqt-old male with end-stage renal disease on peritoneal dialysis admitted with left intertrochanteric fracture status post surgery. He was little bit more confused today compared to yesterday. Probably these fluctuation in the mental status may be secondary to age-related. No acute events in the last 24 hours. The nurse is telling me patient is hypotensive last night he gets a bolus of IV fluids. Plan is to decrease Coreg to 6.25 mg p.o. twice daily and continue isosorbide at this moment. As per the nurse patient's appetite is poor plan is to cut down his Lantus from today. And continue sliding scale. 10/[id number]-vkwq-old male admitted with intertrochanteric fracture status post surgery. He has end-stage renal disease on peritoneal dialysis peritoneal dialysis catheter is not working well patient is gaining fluid follow-up done by nephrology team yesterday. Plan is to have dialysis catheter temporary dialysis catheter and hemodialysis on Sunday. In the meantime we will continue the p resent management. Cultures came back positive for Yady albicans. Reason For Visit: HIP FRACTURE,ESRD Physical Exam Vital Signs: Temp Pulse Resp BP Pulse Ox 97.5 F 64 19 107/78 100 10/18/18 07:40 10/18/18 07:40 10/18/18 07:40 10/18/18 07:40 10/18/18 07:40 Intake & Output 10/17/18 10/18/18 10/19/18 06:59 06:59 06:59 Intake Total 8000 5450 Output Total 8000 4575 Balance 0 875 Weight 97.5 kg 98.4 kg General appearance: PRESENT: no acute distress, obese Head exam: PRESENT: atraumatic Eye exam: PRESENT: PERRLA Ear exam: PRESENT: bleeding Mouth exam: PRESENT: dry mucosa, neck supple Teeth exam: PRESENT: poor dentation Neck exam: ABSENT: carotid bruit, JVD, lymphadenopathy, thyromegaly Respiratory exam: PRESENT: decreased breath sounds Cardiovascular exam: PRESENT: RRR. ABSENT: diastolic murmur, rubs, systolic murmur GI/Abdominal exam: PRESENT: normal bowel sounds, soft. ABSENT: distended, guarding, mass, organolmegaly, rebound, tenderness Gentrourinary exam: PRESENT: indwelling catheter Extremities exam: PRESENT: full ROM. ABSENT: calf tenderness, clubbing, pedal edema Neurological exam: PRESENT: alert, awake, oriented to person, oriented to place, oriented to time, oriented to situation, CN II-XII grossly intact. ABSENT: motor sensory deficit Results Laboratory Results: 10/18/18 04:51 10/18/18 04:51 10/18/18 10/18/18 04:51 04:51 WBC 8.2 RBC 2.83 L Hgb 8.8 L Hct 27.2 L MCV 96 MCH 31.1 MCHC 32.4 RDW 17.0 H Plt Count 311 Seg Neutrophils % 72.3 Lymphocytes % 9.8 L Monocytes % 10.6 Eosinophils % 6.0 Basophils % 1.3 Absolute Neutrophils 5.9 Absolute Lymphocytes 0.8 Absolute Monocytes 0.9 Absolute Eosinophils 0.5 Absolute Basophils 0.1 Retic Count (auto) 2.48 Absolute Retic 0.070 Sodium 137.1 Potassium 3.2 L Chloride 97 L Carbon Dioxide 28 Anion Gap 12 BUN 46 H Creatinine 7.25 H Est GFR ( Amer) 9 L Est GFR (Non-Af Amer) 8 L Glucose 118 H Calcium 8.3 L Magnesium 1.7 Iron 35.0 L TIBC 134 L % Saturation 26 Ferritin 2030.00 H Total Bilirubin 0.3 AST 29 ALT 13 L Alkaline Phosphatase 101 Total Protein 5.6 L Albumin 2.6 L Vitamin B12 616.0 Folate > 20.00 10/08/18 10/08/18 10/09/18 21:30 21:30 03:30 Creatine Kinase 78 51 L CK-MB (CK-2) 3.98 Troponin I 0.031 10/09/18 10/09/18 10/09/18 03:30 09:12 09:12 Creatine Kinase 56 CK-MB (CK-2) 3.52 3.00 Troponin I 0.034 0.038 10/12/18 10/13/18 05:10 05:10 Creatine Kinase CK-MB (CK-2) Troponin I 0.033 0.045 Impressions: Lower Extremity CT 10/08/18 19:50 IMPRESSION: Acute nondisplaced left femoral intertrochanteric fracture. Shoulder X-Ray 10/09/18 00:00 IMPRESSION: NEGATIVE STUDY OF THE LEFT SHOULDER. NO RADIOGRAPHIC EVIDENCE OF ACUTE INJURY. Hip X-Ray 10/11/18 00:00 IMPRESSION: Intra procedural imaging and fluoro Chest X-Ray 10/16/18 00:00 IMPRESSION: Unchanged elevation of the right hemidiaphragm with right basilar atelectasis. No evidence of new cardiopulmonary process. KUB X-Ray 10/17/18 00:00 IMPRESSION: Catheter placement. Assessment and Plan - Diagnosis (1) Nondisplaced intertrochanteric fracture of femur Qualifiers: Encounter type: initial encounter Fracture type: closed Laterality: left Qualified Code(s): S72.145A - Nondisplaced intertrochanteric fracture of left femur, initial encounter for closed fracture Is this a current diagnosis for this admission?: Yes Plan: Now s/p ORIF day #[address] Shelley Patient is admitted to the medical floor. We will defer postoperative DVT prophylaxis to their expertise; Dr. Shelley has started daily aspirin therapy. Analgesics as needed. PT/OT are consulted. Discharge planning consulted for placement. Patient will need short-term rehab 10/15/2018-status post ORIF day 4. No acute events in the last 24 hours. DVT prophylaxis management as per orthopedic team. PT OT are consulted waiting for placement. 10/16/2018-status post ORIF day 5. DVT prophylaxis management as per orthopedic team. PT OT consult was done and waiting for placement. 10/17/2018-postop ORIF day 6. Ortho follow-up which appreciated. I did not see any notes from Ortho yesterday. Start the patient back on DVT prophylaxis. 10/18/2018-patient admitted with intertrochanteric fracture status post ORIF 86. No complications. Hemoglobin is stable around 8.8. Waiting for placement. (2) Anemia in chronic kidney disease Is this a current diagnosis for this admission?: Yes Plan: At baseline; hemoglobin 11.7 on admission. Has trended down to 9.0 During his last admission his hemoglobin was stable at 8.5-9. Nephrology is consulted; will defer to their expertise. Has received erythropoietin this admission. Dr. Evans has seen patient in consult for nephrology Continue peritoneal dialysis per his orders. 10/15/2018-patient has a history of anemia of chronic disease. Globin is 8.7 dropped from 9. Nephrology is on board. PLAN is to continue peritoneal dialysis. 10/16/2018-patient hemoglobin is 8.7 stable nephrology on board. Patient received erythropoietin during this admission. Anemia of chronic disease most likely secondary to CKD. 10/17/2018-patient's hemoglobin is 8.2 slowly dropping. He received caitlyn thropoietin during the hospital stay further management will be deferred to dr Evans. 10/18/2018-patient received erythropoietin during this hospital stay hemoglobin is 8.8 stable. anemia of chronic disease most likely secondary to end-stage renal disease. (3) Chronic renal failure, stage 5 Is this a current diagnosis for this admission?: Yes Plan: Oliguric; receives peritoneal dialysis. Nephrology is consulted; management per their expertise. 10/15/2018-patient is on peritoneal dialysis. He has a Moraes's catheter good avi unt of urine present in the catheter bag. Nephrology on board. 10/16/2018-patient is receiving peritoneal dialysis. He still makes urine. His urinary output is 450 ML in the last 24 hours.. 10/17/2018-patient has end-stage renal disease on peritoneal dialysis. Management as per Dr. Evans. 10/18/2018-patient has end-stage renal disease on peritoneal dialysis peritoneal dialysis catheter is not working well plans for hemodialysis catheter placement and possible dialysis Sunday. (4) Diabetes mellitus type 2 in obese Is this a current diagnosis for this admission?: Yes Plan: Patient's appetite is good continue home medications and sliding scale coverage. 10/15/2018-patient blood sugar is 257 on insulin sliding scale. To check hemoglobin A1c and start on Lantus 10 units twice a day. 10/16/2018-patient latest blood sugar is 87 with hemoglobin A1c of around 7. Plan is to continue the present management. 10/17/2018-patient blood sugar is 165 this morning patient is a poor appetite plan is to hold his Lantus. Hemoglobin A1c is around 7. 04/20/2018-patient to has history of type 2 diabetes mellitus blood sugar today is 133. Relatively controlled. Hemoglobin A1c is 7. Because of the patient's poor appetite Lantus was discontinued yesterday. (5) HTN (hypertension) Is this a current diagnosis for this admission?: Yes Plan: 10/15/2018-patient has history of chronic hypertension blood pressure is 115/50 stable plan is to continue the present management. 10/16/2018-patient blood pressure today is 116/56 stable. Plan is to continue the present management. 10/07/2018-patient became hypotensive last night received a bolus of IV fluids blood pressure this morning is 105/60 plan is to cut down the Coreg to 6.25 mg p.o. twice daily and continue isosorbide. 10/18/2018-patient blood pressure today is 126/91 stable. Plan is to continue the present management. - Time Time Spent with patient: 25-34 minutes Medications reviewed and adjusted accordingly: Yes Anticipated discharge: Home
[2018-10-18] MEDS: MORPHINE SULFATE 10 MG/ML INJ IV PRN ×2 (09:48→13:59)
[2018-10-18] MEDS ORDERED: EPOETIN ALFA INJ 20000 UNIT/1 ML VIAL (RENAL) SUBCUT SCH (10:00)
[2018-10-18] MEDS ORDERED: NORMAL SALINE 1000 ML 1,000 ML IV PRN (10:59)
[2018-10-18] MEDS: FINASTERIDE 5 MG TABLET PO SCH (11:04)
[2018-10-18] MEDS: ARIPIPRAZOLE 2 MG TABLET PO SCH (11:04)
[2018-10-18] MEDS: DOCUSATE SODIUM 100 MG CAPSULE PO SCH ×2 (11:04→18:10)
[2018-10-18] MEDS: CARVEDILOL 6.25 MG TABLET PO SCH ×2 (11:04→21:43)
[2018-10-18] MEDS: FOLIC ACID/VITAMIN B COMP W-C CAPSULE PO SCH (11:04)
[2018-10-18] MEDS: ESCITALOPRAM OXALATE 10 MG TABLET PO SCH (11:05)
[2018-10-18] MEDS: ASPIRIN 81 MG TABLET, ENT COATED PO SCH (11:05)
[2018-10-18] MEDS: ISOSORBIDE MONONITRATE 30 MG TAB.ER.24H PO SCH (11:05)
[2018-10-18] MEDS: CALCIUM CARBONATE 500 MG TABLET PO SCH ×2 (11:05→18:10)
[2018-10-18] MEDS: GENTAMICIN SULFATE 0.1% OINTMENT 15 GM TP SCH (11:06)
[2018-10-18] MEDS: CEFTRIAXONE 2 GM/D5W RTU 2 GM/50 ML RTUPB IV SCH (11:07)
--- NOTE | 2018-10-18 11:40 | PDOC PROGRESS REPORT ---
Subjective Progress Note for:: 10/18/18 Reason For Visit: Patient looks quite debilitated and deconditioned. He is struggling with physical therapy. Continues to feel very weak. Poor intake. Has been constipated. However as of late last night and this morning he seems to have had a good response to lactulose and as per discussions done with the nurse he has really had large amount of stools to the point of having some diarrhea. Patient has been having difficulty in the instill as well as drainage of PD fluid that it had to be held earlier this morning. Blood pressure seems to be some better after adjusting his antihypertensives. He admits to poor appetite. He denies any abdominal pains, fever or chills. No history of any nausea or vomiting. Labs and medications were reviewed. Discussions were done with the treating nurse Cait. Physical Exam Vital Signs: Temp Pulse Resp BP Pulse Ox 97.5 F 64 19 107/78 100 10/18/18 07:40 10/18/18 07:40 10/18/18 07:40 10/18/18 07:40 10/18/18 07:40 Intake & Output 10/17/18 10/18/18 10/19/18 06:59 06:59 06:59 Intake Total 8000 5450 Output Total 8000 4575 Balance 0 875 Weight 97.5 kg 98.4 kg General appearance: PRESENT: no acute distress, disheveled. ABSENT: well- nourished Eye exam: PRESENT: EOMI, PERRLA. ABSENT: scleral icterus Mouth exam: PRESENT: dry mucosa, neck supple. ABSENT: moist Neck exam: ABSENT: lymphadenopathy, meningismus, tenderness, thyromegaly, tracheal deviation Respiratory exam: PRESENT: clear to auscultation yair, decreased breath sounds. ABSENT: crackles Cardiovascular exam: PRESENT: +S1, +S2 GI/Abdominal exam: PRESENT: normal bowel sounds, soft. ABSENT: organomegaly, tenderness Extremities exam: ABSENT: pedal edema Neurological exam: PRESENT: alert, awake, oriented to person, oriented to place Psychiatric exam: PRESENT: appropriate affect Skin exam: PRESENT: dry. ABSENT: erythema, mottled, rash Results Laboratory Results: 10/18/18 04:51 10/18/18 04:51 10/18/18 10/18/18 04:51 04:51 WBC 8.2 RBC 2.83 L Hgb 8.8 L Hct 27.2 L MCV 96 MCH 31.1 MCHC 32.4 RDW 17.0 H Plt Count 311 Seg Neutrophils % 72.3 Lymphocytes % 9.8 L Monocytes % 10.6 Eosinophils % 6.0 Basophils % 1.3 Absolute Neutrophils 5.9 Absolute Lymphocytes 0.8 Absolute Monocytes 0.9 Absolute Eosinophils 0.5 Absolute Basophils 0.1 Retic Count (auto) 2.48 Absolute Retic 0.070 Sodium 137.1 Potassium 3.2 L Chloride 97 L Carbon Dioxide 28 Anion Gap 12 BUN 46 H Creatinine 7.25 H Est GFR ( Amer) 9 L Est GFR (Non-Af Amer) 8 L Glucose 118 H Calcium 8.3 L Magnesium 1.7 Iron 35.0 L TIBC 134 L % Saturation 26 Ferritin 2030.00 H Total Bilirubin 0.3 AST 29 ALT 13 L Alkaline Phosphatase 101 Total Protein 5.6 L Albumin 2.6 L Vitamin B12 616.0 Folate > 20.00 10/08/18 10/08/18 10/09/18 21:30 21:30 03:30 Creatine Kinase 78 51 L CK-MB (CK-2) 3.98 Troponin I 0.031 10/09/18 10/09/18 10/09/18 03:30 09:12 09:12 Creatine Kinase 56 CK-MB (CK-2) 3.52 3.00 Troponin I 0.034 0.038 10/12/18 10/13/18 05:10 05:10 Creatine Kinase CK-MB (CK-2) Troponin I 0.033 0.045 Impressions: Lower Extremity CT 10/08/18 19:50 IMPRESSION: Acute nondisplaced left femoral intertrochanteric fracture. Shoulder X-Ray 10/09/18 00:00 IMPRESSION: NEGATIVE STUDY OF THE LEFT SHOULDER. NO RADIOGRAPHIC EVIDENCE OF ACUTE INJURY. Hip X-Ray 10/11/18 00:00 IMPRESSION: Intra procedural imaging and fluoro Chest X-Ray 10/16/18 00:00 IMPRESSION: Unchanged elevation of the right hemidiaphragm with right basilar atelectasis. No evidence of new cardiopulmonary process. KUB X-Ray 10/17/18 00:00 IMPRESSION: Catheter placement. Assessment & Plan - Diagnosis (1) Nondisplaced intertrochanteric fracture of femur Qualifiers: Encounter type: initial encounter Fracture type: closed Laterality: left Qualified Code(s): S72.145A - Nondisplaced intertrochanteric fracture of left femur, initial encounter for closed fracture Is this a current diagnosis for this admission?: Yes Plan: Stable. However patient is currently condition and and debilitated that he seems to be struggling with physical therapy. Currently on rehab. (2) Diabetes Qualifiers: Diabetes mellitus type: type 2 Plan: Advised tight control. (3) End stage renal disease on dialysis Plan: Clinically he is dehydrated. Very poor intake. Unable to do proper PD exchanges because most likely of constipation. Did do an abdominal x-ray yes terday that I personally reviewed with the radiologist, that shows impacted stools as well as the PD catheter in the right lower iliac fossa. Ordered laxatives and as of late last night and this morning he has had good results. Discussed with the treating nurse to restart PD and let me know how the first exchange goes. I think given his improvement in constipation that his exchanges should go well. However prior to that I am going to give him 500 cc of normal saline given the fact that he is clinically dehydrated.. (4) HTN (hypertension) Is this a current diagnosis for this admission?: Yes Plan: Low normal. Did discontinue his doxazosin and cut back on his Coreg. See response to proper hydration. (5) Anemia Plan: Reordered Procrit after looking at his iron studies which are adequate. (6) Hypokalemia Plan: Start replacements. (7) Leukocytosis Qualifiers: Leukocytosis type: unspecified Qualified Code(s): D72.829 - Elevated white blood cell count, unspecified Plan: There was a trending leukocytosis till yesterday when it peaked at 15.5 and was begun on antibiotics in the last couple of days. As of today is dropped down to 8.2 which is encouraging. (8) Constipation Plan: Has responded well to current laxative regimen.
[2018-10-18] MEDS ORDERED: EPOETIN ALFA INJ 40000 UNIT/1 ML (RENAL) SUBCUT SCH (14:30)
[2018-10-18] MEDS ORDERED: NORMAL SALINE 250 ML IV ONE (16:45)
[2018-10-18] MEDS ORDERED: HEPARIN SOD (PORCINE) 1,000 UNIT/ML 1 ML VIAL IV PRN ×2 (17:15→18:00)
[2018-10-18] MEDS: FLUCONAZOLE 100 MG TABLET PO SCH (18:10)
[2018-10-18] MEDS ORDERED: CHLORPROMAZINE HCL INJ 25 MG/1 ML AMPULE IV PRN (20:05)
[2018-10-18] MEDS ORDERED: CHLORPROMAZINE HCL INJ 25 MG/1 ML AMPULE ONE (21:06)
[2018-10-18] MEDS: POTASSIUM CHLORIDE 10 MEQ CAPSULE.ER PO SCH (21:43)
[2018-10-18] MEDS: ATORVASTATIN CALCIUM 80 MG TABLET PO SCH (21:43)
[2018-10-19] MEDS: IPRATROPIUM/ALBUTEROL 0.5-2.5 MG/3 ML AMPUL NEB SCH ×3 (00:09→16:07)
[2018-10-19] MEDS: MORPHINE SULFATE 10 MG/ML INJ IV PRN ×2 (01:56→15:20)
[2018-10-19 05:01] LABS: ABSOLUTE BASOPHILS # (AUTO) 0.1 10^3/uL (0.0-0.2); ABSOLUTE EOSINOPHILS # (AUTO) 0.4 10^3/uL (0.0-0.6); ABSOLUTE LYMPHOCYTES (AUTO) 0.7 10^3/uL (0.5-4.7); ABSOLUTE MONOCYTES (AUTO) 0.9 10^3/uL (0.1-1.4); ABSOLUTE NEUT (AUTO) 5.9 10^3/uL (1.7-8.2); BASOPHILS % (AUTO) 1.1 % (0-2); EOSINOPHILS % (AUTO) 4.7 % (0-6); HEMATOCRIT 25.3 % (37.9-51.0); HEMOGLOBIN 8.2 g/dL (13.5-17.0); MEAN CORPUSCULAR HEMOGLOBIN 31.3 pg (27.0-33.4); MEAN CORPUSCULAR HGB CONC 32.6 g/dL (32.0-36.0); MEAN CORPUSCULAR VOLUME 96 fl (80-97); MONOCYTES % (AUTO) 11.4 % (3-13); PLATELET COUNT 287 10^3/uL (150-450); RED BLOOD COUNT 2.63 10^6/uL (4.35-5.55); RED CELL DISTRIBUTION WIDTH 17.1 % (11.5-14.0); SEGMENTED NEUTROPHILS % (AUTO) 73.8 % (42-78); TOTAL CELLS COUNTED % (AUTO) 100 %
[2018-10-19] MEDS: HEPARIN SOD (PORCINE) 5,000 UNIT/ML 1 ML VIAL SUBCUT SCH ×2 (05:38→14:56)
[2018-10-19] MEDS: PANTOPRAZOLE SODIUM 20 MG TABLET.DR PO SCH (05:38)
[2018-10-19] MEDS: INSULIN LISPRO 100 UNIT/ML 3 ML VIAL SUBCUT SCH ×3 (08:11→18:27)
--- NOTE | 2018-10-19 09:27 | PDOC TRANSFER SUMMARY ---
General Admission Date/PCP: 10/08/18 21:21 [facility] Resuscitation Status: Full Code - Transfer Diagnosis (1) Nondisplaced intertrochanteric fracture of femur Is this a current diagnosis for this admission?: Yes Diagnosis Summary: Now s/p ORIF day #[address] Shelley Patient is admitted to the medical floor. We will defer postoperative DVT prophylaxis to their expertise; Dr. Shelley has started daily aspirin therapy. Analgesics as needed. PT/OT are consulted. Discharge planning consulted for placement. Patient will need short-term rehab 10/15/2018-status post ORIF day 4. No acute events in the last 24 hours. DVT prophylaxis management as per orthopedic team. PT OT are consulted waiting for placement. 10/16/2018-status post ORIF day 5. DVT prophylaxis management as per orthopedic team. PT OT consult was done and waiting for placement. 10/17/2018-postop ORIF day 6. Ortho follow-up which appreciated. I did not see any notes from Ortho yesterday. Start the patient back on DVT prophylaxis. 10/18/2018-patient admitted with intertrochanteric fracture status post ORIF 86. No complications. Hemoglobin is stable around 8.8. Waiting for placement. 10/19/2018-no post op complications (2) Anemia in chronic kidney disease Is this a current diagnosis for this admission?: Yes Diagnosis Summary: At baseline; hemoglobin 11.7 on admission. Has trended down to 9.0 During his last admission his hemoglobin was stable at 8.5-9. Nephrology is consulted; will defer to their expertise. Has received erythr opoietin this admission. Dr. Evans has seen patient in consult for nephrology Continue peritoneal dialysis per his orders. 10/15/2018-patient has a history of anemia of chronic disease. Globin is 8.7 dropped from 9. Nephrology is on board. PLAN is to continue peritoneal dialysis. 10/16/2018-patient hemoglobin is 8.7 stable nephrology on board. Patient received erythropoietin during this admission. Anemia of chronic disease most likely secondary to CKD. 10/17/2018-patient's hemoglobin is 8.2 slowly dropping. He received erythropoietin during the hospital stay further management will be deferred to dr Evans. 10/18/2018-patient received erythropoietin during this hospital stay hemoglobin is 8.8 stable. anemia of chronic disease most likely secondary to end-stage renal disease. 10/19/2018-hemoglobin is stable 8.2 .recieved erythropoitin (3) Chronic renal failure, stage 5 Is this a current diagnosis for this admission?: Yes Diagnosis Summary: Oliguric; receives peritoneal dialysis. Nephrology is consulted; management per their expertise. 10/15/2018-patient is on peritoneal dialysis. He has a Moraes's catheter good amount of urine present in the catheter bag. Nephrology on board. 10/16/2018-patient is receiving peritoneal dialysis. He still makes urine. His urinary output is 450 ML in the last 24 hours.. 10/17/2018-patient has end-stage renal disease on peritoneal dialysis. Management as per Dr. Evans. 10/18/2018-patient has end-stage renal disease on peritoneal dialysis peritoneal dialysis catheter is not working well plans for hemodialysis catheter placement and possible dialysis Sunday. 10/19/2018- pt is getting agitated and confused. peritoneal dialysis is not working and called Dr Evans he recommended transfer and i spoke to dr awan nephrology fellow and he accepted the pt. (4) Diabetes mellitus type 2 in obese Is this a current diagnosis for this admission?: Yes Diagnosis Summary: Patient's appetite is good continue home medications and sliding scale coverage. 10/15/2018-patient blood sugar is 257 on insulin sliding scale. To check hemoglobin A1c and start on Lantus 10 units twice a day. 10/16/2018-patient latest blood sugar is 87 with hemoglobin A1c of around 7. Plan is to continue the present management. 10/17/2018-patient blood sugar is 165 this morning patient is a poor appetite plan is to hold his Lantus. Hemoglobin A1c is around 7. 10/18/2018-patient to has history of type 2 diabetes mellitus blood sugar today is 133. Relatively controlled. Hemoglobin A1c is 7. Because of the patient's poor appetite Lantus was discontinued yesterday. 10/19/2018- blood sugars are stable. (5) HTN (hypertension) Is this a current diagnosis for this admission?: Yes Diagnosis Summary: 10/19/2018- bp is 91/41 . to give iv normal saline bolus 500cc - Transfer Medications Home Medications: Aripiprazole [Abilify 2 mg Tablet] 2 mg PO DAILY 10/09/18 Aspirin [Aspirin 81 mg Chewable Tablet] 81 mg PO DAILY 10/09/18 Atorvastatin Calcium [Lipitor 80 mg Tablet] 80 mg PO QHS 10/09/18 B Complex W-C No.20/Folic Acid [Renal Caps Softgel] 1 mg PO DAILY 10/09/18 Carvedilol [Coreg 12.5 mg Tablet] 12.5 mg PO Q12 10/09/18 Docusate Sodium [Colace 100 mg Capsule] 100 mg PO BID 10/09/18 Escitalopram Oxalate [Lexapro] 30 mg PO DAILY 10/09/18 Famotidine [Pepcid 20 mg Tablet] 20 mg PO QHS 10/09/18 Finasteride [Proscar 5 mg Tablet] 5 mg PO DAILY 10/09/18 Insulin Aspart [Novolog Insulin 100 Unit/1 ml 10 ml] 0 unit SUBCUT .SLD SCALE 10/09/18 Insulin Glargine,Hum.rec.anlog [Lantus Insulin 100 Unit/1 ml 10 ml] 80 unit SUBCUT QHS 10/09/18 Ipratropium/Albuterol Sulfate [Combivent Respimat 4 gm Mdi] 1 puff IH QIDP PRN 10/09/18 Ipratropium/Albuterol Sulfate [Duoneb 3 ml Ampul] 3 ml NEB RTQIDP PRN 10/09/18 Isosorbide Mononitrate [Imdur 30 mg Tablet.er] 30 mg PO DAILY 10/09/18 Omeprazole 20 mg PO Q6AM 10/09/18 Terazosin HCl [Hytrin] 2 mg PO QHS 10/09/18 Transfer Medications: Current Medications Acetaminophen (Tylenol 325 Mg Tablet) 650 mg PO Q8HP PRN PRN Reason: FOR PAIN OR TEMP Stop: 11/10/18 13:10 Last Admin: 10/17/18 15:55 Dose: 650 mg Documented by: Albuterol/Ipratropium (Duoneb 3 Ml Ampul) 3 ml NEB RTQ8 [facility] Stop: 11/08/18 00:00 Last Admin: 10/19/18 08:19 Dose: 3 ml Documented by: Albuterol/Ipratropium (Duoneb 3 Ml Ampul) 3 ml NEB RTQIDP PRN PRN Reason: SOB Stop: 11/08/18 08:47 Aripiprazole (Abilify 2 Mg Tablet) 2 mg PO DAILY [facility] Stop: 11/08/18 09:59 Last Admin: 10/18/18 11:04 Dose: 2 mg Documented by: Aspirin (Ecotrin 81 Mg Ec Tablet) 81 mg PO DAILY [facility] Stop: 11/11/18 09:59 Last Admin: 10/18/18 11:05 Dose: 81 mg Documented by: Atorvastatin Calcium (Lipitor 80 Mg Tablet) 80 mg PO QHS [facility] Stop: 11/08/18 21:59 Last Admin: 10/18/18 21:43 Dose: 80 mg Documented by: Calcium Carbonate (Os-Avila 500 Mg Tablet (Oyster-Shell)) 1,000 mg PO BID [facility] Stop: 11/10/18 17:59 Last Admin: 10/18/18 18:10 Dose: 1,000 mg Documented by: Carvedilol (Coreg 6.25 Mg Tablet) 3.125 mg PO Q12 [facility] Stop: 11/16/18 21:59 Last Admin: 10/18/18 21:43 Dose: 3.125 mg Documented by: Chlorpromazine HCl (Thorazine Inj 25 Mg/1 Ml Ampule) 25 mg IV Q8HP PRN PRN Reason: AGITATION Stop: 11/17/18 20:04 Last Admin: 10/19/18 03:02 Dose: 25 mg Documented by: Dextrose (Dextrose Inj 50% Syringe (25 Gm/50 Ml)) 12.5 gm IV PRN PRN; Protocol PRN Reason: FOR BG 50-69 IN ALERT PATIENT Stop: 11/11/18 10:29 Dextrose (Dextrose Inj 50% Syringe (25 Gm/50 Ml)) 25 gm IV PRN PRN; Protocol Stop: 11/11/18 10:29 Docusate Sodium (Colace 100 Mg Capsule) 100 mg PO BID [facility] Stop: 11/08/18 09:59 Last Admin: 10/18/18 18:10 Dose: 100 mg Documented by: Epoetin Norberto (Procrit Inj 40,000 Unit/1 Ml Vial (Renal)) 40,000 unit SUBCUT Fr@1000 [facility] Stop: 11/17/18 14:29 Last Admin: 10/18/18 14:17 Dose: 40,000 unit Documented by: Escitalopram Oxalate (Lexapro 10 Mg Tablet) 30 mg PO DAILY [facility] Stop: 11/08/18 09:59 Last Admin: 10/18/18 11:05 Dose: 30 mg Documented by: Finasteride (Proscar 5 Mg Tablet) 5 mg PO DAILY [facility] Stop: 11/08/18 09:59 Last Admin: 10/18/18 11:04 Dose: 5 mg Documented by: Fluconazole (Diflucan 100 Mg Tablet) 100 mg PO QPM [facility] Stop: 10/24/18 17:59 Last Admin: 10/18/18 18:10 Dose: 100 mg Documented by: Gentamicin Sulfate (Garamycin 0.1% Ointment 15 Gm) 1 applic TP DAILY [facility] Stop: 11/17/18 09:59 Last Admin: 10/18/18 11:06 Dose: 1 applic Documented by: Glucagon (Glucagen Inj 1 Mg Vial) 1 mg IM PRN PRN; Protocol PRN Reason: EVALUATE FOR BG < 70 Stop: 11/11/18 10:29 Glucose (Glutose 40% Gel 15 Gm Tube) 15 gm PO PRN PRN; Protocol PRN Reason: FOR BG 50-69 IN ALERT PATIENT Stop: 11/11/18 10:29 Glucose (Glutose 40% Gel 15 Gm Tube) 30 gm PO PRN PRN; Protocol PRN Reason: FOR BG < 50 IN ALERT PATIENT Stop: 11/11/18 10:29 Guaifenesin (Robitussin Syrup 200 Mg/10 Ml Ud Cup) 200 mg PO Q6HP PRN PRN Reason: COUGH Stop: 11/08/18 23:24 Last Admin: 10/09/18 23:50 Dose: 200 mg Documented by: Heparin Sodium (Porcine) (Heparin Inj 5,000 Units/Ml 1 Ml Syringe) 5,000 unit SUBCUT Q8 [facility] Stop: 11/07/18 21:59 Last Admin: 10/19/18 05:38 Dose: Not Given Documented by: Heparin Sodium (Porcine) (Heparin Inj 1,000 Unit/Ml 1 Ml Vial) 1,000 unit IV ASDIR PRN PRN Reason: SEE COMMENTS Heparin Sodium (Porcine) (Heparin Inj 1,000 Unit/Ml 1 Ml Vial) 1,000 unit IV .DIALYSIS [facility] Stop: 11/18/18 09:59 Ceftriaxone Sodium/Dextrose (Rocephin Rtu 2 Gm/D5w 50 Ml Premix Bag) 2 gm in 50 mls @ 100 mls/hr IV DAILY [facility] Stop: 10/23/18 09:59 Last Infusion: 10/18/18 11:40 Dose: Infused Documented by: Insulin Human Lispro (Humalog Insulin 100 Unit/1 Ml 3 Ml Vial) 0 - 12 unit SUBCUT ACHS [facility]; Protocol Stop: 11/11/18 10:59 Last Admin: 10/19/18 08:11 Dose: Not Given Documented by: Isosorbide Mononitrate (Imdur 30 Mg Tablet.Er) 30 mg PO DAILY [facility] Stop: 11/08/18 09:59 Last Admin: 10/18/18 11:05 Dose: 30 mg Documented by: Ketorolac Tromethamine (Toradol Inj/Pf 30 Mg/1 Ml Sdv) 15 mg IV Q6HP PRN PRN Reason: FOR PAIN Stop: 10/22/18 20:56 Last Admin: 10/18/18 13:57 Dose: 15 mg Documented by: Lactulose (Cephulac Syrup 20 Gm/30 Ml Udcup) 20 gm PO BIDP PRN PRN Reason: constipation Stop: 11/12/18 10:13 Last Admin: 10/17/18 21:53 Dose: 20 gm Documented by: Magnesium Hydroxide (Milk Of Magnesia 30 Ml Udcup) 30 ml PO HSP PRN PRN Reason: FOR CONSTIPATION Stop: 11/07/18 21:16 Morphine Sulfate (Morphine 10 Mg/Ml Inj) 0 mg IV Q2HP PRN; Protocol PRN Reason: Pain Per [facility] 5 point scale SD Stop: 10/24/18 20:54 Last Admin: 10/19/18 01:56 Dose: 2 mg Documented by: Multivit/Ca Carb/B Cmplx/FA/Prenat (Nephrocaps Multiple Vitamin Capsule) 1 cap PO DAILY [facility] Stop: 11/08/18 09:59 Last Admin: 10/18/18 11:04 Dose: 1 cap Documented by: Pantoprazole Sodium (Protonix [address] Tablet) 20 mg PO Q6AM [facility] Stop: 11/09/18 05:59 Last Admin: 10/19/18 05:38 Dose: Not Given Documented by: Potassium Chloride (Klor-Con 10 Meq Capsule Er) 20 meq PO Q12 [facility] Stop: 11/17/18 21:59 Last Admin: 10/18/18 21:43 Dose: 20 meq Documented by: - Allergies Allergies/Adverse Reactions: No Known Allergies Allergy (Verified 09/23/18 09:48) Hospital Course Hospital Course: 67 year old male with a past medical history of congestive heart failure, coronary artery disease, COPD, diabetes, hypertension, blindness and end-stage renal failure on peritoneal dialysis. He presents shortly after losing his balance while walking falling to his left side resulting in injury. He denies chest pain, shortness of breath, palpitations or loss of consciousness, no additional injury or seizure-like activity,. He was unable to bear weight prompting evaluation emergency room is found to have a left-sided hip fracture and referred to the hospitalist for admission. Patient is comfortable lying flat, denies chest pain, shortness of breath, headache, recent fallsand is otherwise felt well. He does admit recently starting Abilify. Patient seen resting in bed. He is awake, alert, oriented x3. He denies any chest pain, shortness of breath or dyspnea at rest. He denies any nausea, vomiting or abdominal pain. He denies any diarrhea or dysuria. He denies any fevers or chills. He states pain in the left hip is much improved since yesterday. He was able to move a little more with physical therapy earlier this morning. He continues to have significant pain that she is making his postop recovery slow. He denies any other arthralgias or myalgias. Remaining review of systems are negative. 10/15/[id number]-qfhs-old male admitted for left intertrochanteric fracture status post surgery patient is on peritoneal dialysis waiting for alf placement facility placement and he is confused and agitated this morning. Unable to communicate well. 10/16/2018 68-year-old male with history of end-stage renal disease on peritoneal dialysis admitted for left intertrochanteric fracture status post surgery it looks much better today alert and awake oriented able to give his date of today. He has a low-grade fever of 99.2 and pulse ox is 91% on 5 L. WBC count went up to 16,000 from 13,800. Chest x-ray was done today waiting for the report and started on IV Rocephin 2 g daily. Urinalysis done shows turbidity with trace of leukocyte esterase positive. 10/17/[id number]-phan-old male with end-stage renal disease on peritoneal dialysis admitted with left intertrochanteric fracture status post surgery. He was little bit more confused today compared to yesterday. Probably these fluctuation in the mental status may be secondary to age-related. No acute events in the last 24 hours. The nurse is telling me patient is hypotensive last night he gets a bolus of IV fluids. Plan is to decrease Coreg to 6.25 mg p.o. twice daily and continue isosorbide at this moment. As per the nurse patient's appetite is poor plan is to cut down his Lantus from today. And continue sliding scale. 10/18/[id number]-owjp-old male admitted with intertrochanteric fracture status post surgery. He has end-stage renal disease on peritoneal dialysis peritoneal dialysis catheter is not working well patient is gaining fluid follow-up done by nephrology team yesterday. Plan is to have dialysis catheter temporary dialysis catheter and hemodialysis on Sunday. In the meantime we will continue the present management. Cultures came back positive for Yady albicans. Physical Exam Vital Signs: Temp Pulse Resp BP Pulse Ox 97.7 F 64 17 91/41 L 92 10/19/18 07:45 10/19/18 07:45 10/19/18 07:45 10/19/18 07:45 10/19/18 07:45 Intake & Output 10/18/18 10/19/18 10/20/18 06:59 06:59 06:59 Intake Total 6950 6740 Output Total 4575 3600 Balance 2375 3140 Weight 98.4 kg 93.8 kg General appearance: PRESENT: no acute distress Head exam: PRESENT: atraumatic Eye exam: PRESENT: PERRLA Mouth exam: PRESENT: moist, tongue midline Teeth exam: PRESENT: poor dentation Neck exam: ABSENT: carotid bruit, JVD, lymphadenopathy, thyromegaly Respiratory exam: PRESENT: decreased breath sounds Cardiovascular exam: PRESENT: RRR. ABSENT: diastolic murmur, rubs, systolic murmur Rectal exam: PRESENT: deferred Neurological exam: PRESENT: alert, awake. ABSENT: motor sensory deficit Psychiatric exam: PRESENT: appropriate affect, normal mood. ABSENT: homicidal ideation, suicidal ideation Results Laboratory Results: 10/19/18 04:18 10/18/18 04:51 10/19/18 04:18 WBC 8.0 RBC 2.63 L Hgb 8.2 L Hct 25.3 L MCV 96 MCH 31.3 MCHC 32.6 RDW 17.1 H Plt Count 287 Seg Neutrophils % 73.8 Lymphocytes % 9.0 L Monocytes % 11.4 Eosinophils % 4.7 Basophils % 1.1 Absolute Neutrophils 5.9 Absolute Lymphocytes 0.7 Absolute Monocytes 0.9 Absolute Eosinophils 0.4 Absolute Basophils 0.1 10/08/18 10/08/18 10/09/18 21:30 21:30 03:30 Creatine Kinase 78 51 L CK-MB (CK-2) 3.98 Troponin I 0.031 10/09/18 10/09/18 10/09/18 03:30 09:12 09:12 Creatine Kinase 56 CK-MB (CK-2) 3.52 3.00 Troponin I 0.034 0.038 10/12/18 10/13/18 05:10 05:10 Creatine Kinase CK-MB (CK-2) Troponin I 0.033 0.045 Impressions: Lower Extremity CT 10/08/18 19:50 IMPRESSION: Acute nondisplaced left femoral intertrochanteric fracture. Shoulder X-Ray 10/09/18 00:00 IMPRESSION: NEGATIVE STUDY OF THE LEFT SHOULDER. NO RADIOGRAPHIC EVIDENCE OF ACUTE INJURY. Hip X-Ray 10/11/18 00:00 IMPRESSION: Intra procedural imaging and fluoro Chest X-Ray 10/16/18 00:00 IMPRESSION: Unchanged elevation of the right hemidiaphragm with right basilar atelectasis. No evidence of new cardiopulmonary process. KUB X-Ray 10/17/18 00:00 IMPRESSION: Catheter placement.
[2018-10-19] MEDS ORDERED: NORMAL SALINE 1000 ML 500 ML IV PRN (09:31)
[2018-10-19] MEDS ORDERED: HEPARIN SOD (PORCINE) 1,000 UNIT/ML 1 ML VIAL IV SCH (10:00)
[2018-10-19] MEDS: DOCUSATE SODIUM 100 MG CAPSULE PO SCH ×2 (13:38→18:27)
[2018-10-19] MEDS: ASPIRIN 81 MG TABLET, ENT COATED PO SCH (13:38)
[2018-10-19] MEDS: CEFTRIAXONE 2 GM/D5W RTU 2 GM/50 ML RTUPB IV SCH (13:38)
[2018-10-19] MEDS: ESCITALOPRAM OXALATE 10 MG TABLET PO SCH (13:38)
[2018-10-19] MEDS: POTASSIUM CHLORIDE 10 MEQ CAPSULE.ER PO SCH (13:39)
[2018-10-19] MEDS: FOLIC ACID/VITAMIN B COMP W-C CAPSULE PO SCH (13:39)
[2018-10-19] MEDS: ISOSORBIDE MONONITRATE 30 MG TAB.ER.24H PO SCH (13:39)
[2018-10-19] MEDS: FINASTERIDE 5 MG TABLET PO SCH (13:39)
[2018-10-19] MEDS: CALCIUM CARBONATE 500 MG TABLET PO SCH ×2 (13:39→18:27)
[2018-10-19] MEDS: ARIPIPRAZOLE 2 MG TABLET PO SCH (13:40)
[2018-10-19] MEDS: CARVEDILOL 6.25 MG TABLET PO SCH (13:41)
[2018-10-19] MEDS: GENTAMICIN SULFATE 0.1% OINTMENT 15 GM TP SCH (13:41)
[2018-10-19] MEDS: FLUCONAZOLE 100 MG TABLET PO SCH (18:27)
[2018-10-19 20:16] VITALS: BP 121/56
== END 2018-10-19 21:30 | disposition short-term general hospital (02) | DRG 480 ==
LOC: ER 18:45 → EH 21:21 → 3N 10-09 16:47 → 4N 10-11 11:41
PROVIDERS: ADMIT Internal Medicine; ATTEND Internal Medicine
PROC: 0QS706Z Reposition Left Upper Femur with Intramedullary Internal Fixation Device, Open Approach (ICD-10-PCS; principal; 2018-10-11 11:30)
DX: S72.145A Nondisplaced intertrochanteric fracture of left femur, initial encounter for closed fracture (principal); N18.6 End stage renal disease; I13.2 Hypertensive heart and chronic kidney disease with heart failure and with stage 5 chronic kidney disease, or end stage renal disease; I50.32 Chronic diastolic (congestive) heart failure; I95.9 Hypotension, unspecified; E11.22 Type 2 diabetes mellitus with diabetic chronic kidney disease; I27.20 Pulmonary hypertension, unspecified; E11.43 Type 2 diabetes mellitus with diabetic autonomic (poly)neuropathy; Z99.2 Dependence on renal dialysis; Z99.81 Dependence on supplemental oxygen; E11.319 Type 2 diabetes mellitus with unspecified diabetic retinopathy without macular edema; E83.51 Hypocalcemia; E83.39 Other disorders of phosphorus metabolism; Z68.32 Body mass index [BMI] 32.0-32.9, adult; J44.9 Chronic obstructive pulmonary disease, unspecified; W18.30XA Fall on same level, unspecified, initial encounter; Y92.018 Other place in single-family (private) house as the place of occurrence of the external cause; D63.1 Anemia in chronic kidney disease; Z79.82 Long term (current) use of aspirin; Z79.4 Long term (current) use of insulin; I25.10 Atherosclerotic heart disease of native coronary artery without angina pectoris; H54.7 Unspecified visual loss; R50.9 Fever, unspecified; E78.5 Hyperlipidemia, unspecified; I25.2 Old myocardial infarction; Z95.5 Presence of coronary angioplasty implant and graft; N40.0 Benign prostatic hyperplasia without lower urinary tract symptoms; F32.9 Major depressive disorder, single episode, unspecified; Z83.3 Family history of diabetes mellitus; Z82.49 Family history of ischemic heart disease and other diseases of the circulatory system; E66.9 Obesity, unspecified; M12.9 Arthropathy, unspecified; D72.829 Elevated white blood cell count, unspecified; T40.605A Adverse effect of unspecified narcotics, initial encounter; Y92.239 Unspecified place in hospital as the place of occurrence of the external cause; R41.0 Disorientation, unspecified; K59.00 Constipation, unspecified; E87.6 Hypokalemia
CPT/HCPCS: 01230; 36415; 71045; 74018; 80048; 80053; 81001; 82550; 82553; 82607; 82728; 82746; 82962; 83036; 83540; 83550; 83735; 84484; 85025; 85027; 85045; 86850; 86900; 86901; 87070; 87075; 87086; 87205; 90471; 90715; 90945; 90947; 93005; 93010; 93306; 94640; 94667; 96374; 99285; C1713; C1769; J0610; J0690; J0696; J1100; J1644; J1815; J1885; J2250; J2270; J2405; J2704; J3010; J3230; J3490; J7030; J7050; J7060; J7620; Q4081; Q5105

== ENCOUNTER 2019-01-20 16:28 | Emergency (ER) | payer OTHER, MEDICARE ==
[2019-01-20 17:20] LABS: ABSOLUTE BASOPHILS # (AUTO) 0.2 10^3/uL (0.0-0.2); ABSOLUTE EOSINOPHILS # (AUTO) 0.3 10^3/uL (0.0-0.6); ABSOLUTE MONOCYTES (AUTO) 0.8 10^3/uL (0.1-1.4); ABSOLUTE NEUT (AUTO) 8.4 10^3/uL (1.7-8.2); BASOPHILS % (AUTO) 1.5 % (0-2); HEMATOCRIT 26.3 % (37.9-51.0); HEMOGLOBIN 8.7 g/dL (13.5-17.0); LYMPHOCYTES % (AUTO) 9.1 % (13-45); MEAN CORPUSCULAR HEMOGLOBIN 31.2 pg (27.0-33.4); MEAN CORPUSCULAR HGB CONC 32.8 g/dL (32.0-36.0); MEAN CORPUSCULAR VOLUME 95 fl (80-97); MONOCYTES % (AUTO) 7.8 % (3-13); PLATELET COUNT 260 10^3/uL (150-450); RED BLOOD COUNT 2.78 10^6/uL (4.35-5.55); RED CELL DISTRIBUTION WIDTH 17.6 % (11.5-14.0); SEGMENTED NEUTROPHILS % (AUTO) 78.6 % (42-78); TOTAL CELLS COUNTED % (AUTO) 100 %; WHITE BLOOD COUNT 10.7 10^3/uL (4.0-10.5)
--- NOTE | 2019-01-20 17:27 | RADIOLOGY REPORT (SQ) ---
EXAM DESCRIPTION: CHEST SINGLE VIEW COMPLETED DATE/TIME: 01/20/2019 4:58 pm REASON FOR STUDY: sob COMPARISON: 10/16/2018 EXAM PARAMETERS: NUMBER OF VIEWS: One view. TECHNIQUE: Single frontal radiographic view of the chest acquired. RADIATION DOSE: NA LIMITATIONS: None. FINDINGS: LUNGS AND PLEURA: Linear opacification in the right base in association with a small right pleural effusion. MEDIASTINUM AND HILAR STRUCTURES: No masses. Contour normal. HEART AND VASCULAR STRUCTURES: Cardiomegaly. No codie pulmonary edema. BONES: No acute findings. HARDWARE: Right-sided catheter. OTHER: No other significant finding. IMPRESSION: Cardiomegaly without pulmonary edema. Right pleural effusion with what appears to be so me fluid in the fissure. TECHNICAL DOCUMENTATION: JOB ID: [id number] [employer]- All Rights Reserved Reading location - IP/workstation name: [email or web address]
[2019-01-20 17:40] LABS: ALBUMIN 3.7 g/dL (3.5-5.0); ALKALINE PHOSPHATASE 128 U/L (38-126); ANION GAP 11 (5-19); ASPARTATE AMINO TRANSFERASE 16 U/L (17-59); BILIRUBIN,DIRECT 0.3 mg/dL (0.0-0.4); BILIRUBIN,TOTAL 0.6 mg/dL (0.2-1.3); BLOOD UREA NITROGEN 21 mg/dL (7-20); CARBON DIOXIDE 28 mmol/L (22-30); CHLORIDE 101 mmol/L (98-107); GLUCOSE 225 mg/dL (75-110); POTASSIUM 5.2 mmol/L (3.6-5.0); TOTAL PROTEIN 6.9 g/dL (6.3-8.2)
[2019-01-20 18:30] LABS: APPEARANCE,URINE CLOUDY; BILIRUBIN,URINE NEGATIVE (NEGATIVE); COLOR,URINE STRAW; GLUCOSE, URINE 500 mg/dL (NEGATIVE); KETONES,URINE NEGATIVE (NEGATIVE); LEUKOCYTE ESTERASE,URINE LARGE (NEGATIVE); NITRITE,URINE NEGATIVE (NEGATIVE); PROTEIN,URINE >=500 mg/dL (NEGATIVE); UROBILINOGEN,URINE NEGATIVE mg/dL (<2.0)
[2019-01-20 18:33] LABS: URINE SPECIFIC GRAVITY 1.015
--- NOTE | 2019-01-20 19:50 | EKG REPORT ---
SEVERITY:- ABNORMAL ECG - SINUS RHYTHM INTERPOLATED VENTRICULAR PREMATURE COMPLEX LPFB NONSPECIFIC ST-T CHANGES- INFERIOR LEADS : Confirmed by: Yaya Pike MD 20-Jan-2019 19:49:02
[2019-01-20] MEDS ORDERED: ASPIRIN 81 MG TABLET, CHEWABLE PO ONE (20:10)
[2019-01-20] MEDS ORDERED: NITROGLYCERIN 2% OINTMENT 1 GM PACKET TP ONE (20:10)
--- NOTE | 2019-01-20 22:46 | ER Document Report ---
ED General - General Chief Complaint: Breathing Difficulty Stated Complaint: SHORTNESS OF BREATH Time Seen by Provider: 01/20/19 19:58 [facility] [[facility] - Follow up as needed TRAVEL OUTSIDE OF THE [place] IN LAST 30 DAYS: No - Related Data Allergies/Adverse Reactions: No Known Allergies Allergy (Verified 09/23/18 09:48) Home Medications: pt not able to recall at this time Past Medical History - Social History Smoking Status: Former Smoker Family History: CAD, DM, Hypertension Patient has suicidal ideation: No Patient has homicidal ideation: No - Past Medical History Cardiac Medical History: Reports: Hx Congestive Heart Failure, Hx Coronary Artery Disease, Hx Heart Attack - Twice with stents placed, Hx Hypercholesterolemia, Hx Hypertension Denies: Hx Atrial Fibrillation, Hx DVT, Hx Pulmonary Embolism Pulmonary Medical History: Reports: Hx COPD, Hx Respiratory Failure Denies: Hx Asthma Neurological Medical History: Denies: Hx Seizures Endocrine Medical History: Reports: Hx Diabetes Mellitus Type 2. Denies: Hx Diabetes Mellitus Type 1, Hx Hyperthyroidism, Hx Hypothyroidism Renal/ Medical History: Reports: Hx Benign Prostatic Hyperplasia, Hx End Stage Renal Disease, Hx Peritoneal Dialysis GI Medical History: Reports: Hx Diverticulitis. Denies: Hx Cirrhosis, Hx Hepatitis Musculoskeletal Medical History: Denies Hx Arthritis, Denies Hx Gout Skin Medical History: Denies Hx Eczema, Denies Hx Psoriasis Psychiatric Medical History: Reports: Hx Depression Infectious Medical History: Reports: Hx C-Diff. Denies: Hx Hepatitis Past Surgical History: Reports: Hx Abdominal Surgery - meckels diverticulum, Hx Cardiac Catheterization, Hx Coronary Stent - X2, Other - Small bowel resection; adhesion lysis; peritoneal dialysis access Physical Exam - Vital signs Vitals: Pulse Ox 100 01/20/19 16:31 - Notes Notes: Patient presents emergency department with chest pain that started about an hour ago when he was in dialysis. His chest and feels like a pressure sensation. Breath with this. Did not have any nausea vomiting diaphoresis he has no recent fever or cough. The pain did not seem to change when he moves around. It lasted for about 30 minutes and has resolved. But different from his previous cardiac pain. Located in his neck. He has been on nitroglycerin in the past but none in a while. Past medical history meds and allergies are listed in history as noted and reviewed. He is currently on Levaquin for a UTI Review of systems all systems were reviewed and acutely negative except as in HPI Exam PHYSICAL EXAMINATION: Signs were noted he is in no acute distress O2 sats are running between 94 to 96% on p nasal cannula which he uses at home GENERAL: Well-appearing, well-nourished and in no acute distress. HEAD: Atraumatic, normocephalic. EYES: Pupils equal round and reactive to light, extraocular movements intact, sclera anicteric, conjunctiva are normal. ENT: nares patent, oropharynx clear without exudates. Moist mucous membranes. NECK: Normal range of motion, supple without lymphadenopathy LUNGS: Breath sounds clear to auscultation bilaterally and equal. No wheezes rales or rhonchi. HEART: Regular rate and rhythm ABDOMEN: Soft, nontender, normoactive bowel sounds. Back is nontender EXTREMITIES: Nontender +1 edema. In the lower extremities there is no palpable cords or bony tenderness NEUROLOGICAL: No focal neurological deficits. Moves all extremities spontaneously and on command. PSYCH: Normal mood, normal affect. SKIN: Warm, Dry, normal turgor, no rashes or lesions noted. Course - Re-evaluation Re-evalutation: 01/20/19 22:47 ED patient has remained stable is given 4 baby aspirin and placed on edge of N itropaste empirically. He is been on radiation monitor with notes of arrhythmias. Said no additional episodes of chest pain. Medical decision making patient presents with chest pain and shortness of breath. The pain is somewhat atypical. However his heart score puts him at a moderate risk. I talked to the patient about the findings and strongly recommended need for admission to the hospital for further evaluation however he is adamant about going home. Family members are present and they understand the situation. [facility] I advised him I can give him the number for cardiology for follow-up but it may take time for follow-up. We can also give him nitroglycerin. Patient been staying in the hospital and advised him about my concerns that of unstable angina he understands this. Offered him the opportunity to return at any point emphasize need for follow-up in the next day or 2 and family voiced understanding - Vital Signs Vital signs: Temp Pulse Resp BP Pulse Ox 98.4 F 19 148/82 H 97 01/20/19 21:24 01/20/19 22:00 01/20/19 22:00 01/20/19 22:00 - Laboratory Result Diagrams: 01/20/19 17:03 01/20/19 17:03 Laboratory results interpreted by me: 01/20/19 01/20/19 01/20/19 17:03 17:03 18:13 WBC 10.7 H RBC 2.78 L Hgb 8.7 L Hct 26.3 L RDW 17.6 H Lymph % (Auto) 9.1 L Absolute Neuts (auto) 8.4 H Seg Neutrophils % 78.6 H Potassium 5.2 H BUN 21 H Creatinine 3.46 H Est GFR ( Amer) 21 L Est GFR (MDRD) Non-Af 18 L Glucose 225 H AST 16 L Alkaline Phosphatase 128 H Urine Protein >=500 H Urine Glucose (UA) 500 H Urine Blood MODERATE H Ur Leukocyte Esterase LARGE H 01/20/19 22:46 Troponin and repeat troponin was noted. Urine was noted. But will obtain a culture - Diagnostic Test Radiology reviewed: Reports reviewed Radiology results interpreted by me: 01/20/19 22:46 Chest x-ray is unchanged from previous - EKG Interpretation by Me Additional EKG results interpreted by me: 01/20/19 22:47 EKG was obtained interpreted by me. It shows a normal sinus rhythm with a rate of 75 there is an occasional PVC. EKG is unchanged from previous Discharge - Discharge Clinical Impression: Unstable angina Chest pain Qualifiers: Ischemic chest pain type: unstable angina pectoris Urinary tract infection Qualifiers: Urinary tract infection type: acute cystitis Hematuria presence: without hematuria Qualified Code(s): N30.00 - Acute cystitis without hematuria Hypertension Qualifiers: Hypertension type: unspecified Qualified Code(s): I10 - Essential (primary) hypertension Disposition: HOME, SELF-CARE Instructions: Angina Episode ([facility]), Urinary Tract Infection ([facility]) Additional Instructions: We are concerned that the episode of pain today might of been related to your heart to follow-up with your family doctor to 2 days for further evaluation Make sure you review the discharge instructions Return if you get worse or cannot follow-up with your family doctor Follow-up with the project coach in 2 to 3 days To you go to dialysis tomorrow Return if you develop persistent chest pain or shortness of breath Prescriptions: Fluconazole [Diflucan] 150 mg PO DAILY #3 tablet Nitroglycerin 0.4 mg SL PRN PRN #20 tab.subl PRN Reason: Forms: Elevated Blood Pressure Referrals: [facility] [[facility]] - 01/22/19 (Follow-up with your family doctor in 1 to 2 days ) RAYMOND YONUG MD [ACTIVE STAFF] - Follow up in 3-5 days (Call for an appointment tomorrow to be seen in 2-3 days)
[2019-01-20 23:24] VITALS: BP 166/84
== END 2019-01-20 23:24 | disposition home or self-care (01) ==
LOC: ER 16:28
DX: I25.110 Atherosclerotic heart disease of native coronary artery with unstable angina pectoris (principal); I10 Essential (primary) hypertension; N30.00 Acute cystitis without hematuria; J44.9 Chronic obstructive pulmonary disease, unspecified; I49.3 Ventricular premature depolarization; R60.0 Localized edema; R06.02 Shortness of breath; I25.2 Old myocardial infarction; E11.9 Type 2 diabetes mellitus without complications; Z87.891 Personal history of nicotine dependence; Z82.49 Family history of ischemic heart disease and other diseases of the circulatory system; Z95.5 Presence of coronary angioplasty implant and graft
CPT/HCPCS: 36415; 71045; 80053; 81001; 83690; 84484; 85025; 93005; 93010; 99285

== ENCOUNTER 2019-03-04 05:48 | Day surgery (SDC) | payer OTHER, MEDICARE ==
[~2019-03-04 05:48] MED LIST changes: +CEFAZOLIN SODIUM 1 GM in DEXTROSE 5%-WATER 50 ML IV PRN; -MAGNESIUM OXIDE 400 MG TABLET PO ONE
[2019-03-04 06:51] LABS: HEMOGLOBIN 10.8 g/dL (13.5-17.0); MEAN CORPUSCULAR HEMOGLOBIN 29.8 pg (27.0-33.4); MEAN CORPUSCULAR HGB CONC 31.7 g/dL (32.0-36.0); MEAN CORPUSCULAR VOLUME 94 fl (80-97); PLATELET COUNT 315 10^3/uL (150-450); RED BLOOD COUNT 3.62 10^6/uL (4.35-5.55); RED CELL DISTRIBUTION WIDTH 16.4 % (11.5-14.0); WHITE BLOOD COUNT 9.5 10^3/uL (4.0-10.5)
[2019-03-04] MEDS ORDERED: FENTANYL CITRATE INJ/PF 100 MCG/2 ML AMPUL ONE ×2 (06:55→10:14)
[2019-03-04] MEDS ORDERED: LIDOCAINE 2% INJ-PF (20 MG/ML) 10 ML AMPUL ONE (06:55)
[2019-03-04] MEDS ORDERED: MIDAZOLAM 2 MG/2 ML INJ ONE (06:55)
--- NOTE | 2019-03-04 06:55 | RADIOLOGY REPORT (SQ) ---
EXAM DESCRIPTION: XR CHEST 1 VIEW COMPLETED DATE/TME: 03/04/2019 00:00 CLINICAL HISTORY: 68 years, Male, preop COMPARISON: 01/20/2019 chest NUMBER OF VIEWS: 1 TECHNIQUE: Portable chest LIMITATIONS: None. FINDINGS: Cardiomegaly. Central venous catheter in place. Mild elevation right hemidiaphragm. Small bibasilar effusions. No pneumothorax IMPRESSION: Cardiomegaly. Small bibasilar effusions copyright 2010 [employer]- All Rights Reserved
[2019-03-04] MEDS ORDERED: ONDANSETRON HCL INJ/PF 4 MG/2 ML SDV ONE (06:56)
[2019-03-04] MEDS ORDERED: PROPOFOL INJ 200 MG/20 ML VIAL IV ONE ×2 (06:56→10:15)
[2019-03-04 07:12] LABS: ANION GAP 11 (5-19); BLOOD UREA NITROGEN 24 mg/dL (7-20); CALCIUM 8.9 mg/dL (8.4-10.2); CARBON DIOXIDE 29 mmol/L (22-30); CHLORIDE 102 mmol/L (98-107); GLUCOSE 233 mg/dL (75-110); POTASSIUM 4.6 mmol/L (3.6-5.0)
--- NOTE | 2019-03-04 07:12 | EKG REPORT ---
SEVERITY:- ABNORMAL ECG - SINUS RHYTHM NONSPECIFIC T ABNORMALITIES, ANTERIOR LEADS BORDERLINE PROLONGED QT INTERVAL : Confirmed by: Yaya Pike MD 04-Mar-2019 07:11:56
[2019-03-04] MEDS ORDERED: BUPIVACAINE HCL 0.25 % INJ/PF (2.5 MG/1 ML) 30 ML VIAL ONE (07:20)
[2019-03-04] MEDS ORDERED: LIDOCAINE 0.5% INJ-PF (5 MG/ML) 50 ML SDV ONE (07:21)
[2019-03-04] MEDS ORDERED: HEPARIN SOD (PORCINE) 1,000 UNIT/ML 1 ML VIAL ONE (07:21)
[2019-03-04] MEDS ORDERED: BACITRACIN INJ 50,000 UNIT VIAL ONE (07:22)
[2019-03-04] MEDS ORDERED: NITROGLYCERIN/D5W 0 MG/0 ML RTUINJ IV ONE (07:25)
[2019-03-04] MEDS ORDERED: LIDOCAINE 1% INJ-PF (10 MG/ML) 30 ML SDV ONE (07:31)
[2019-03-04] MEDS ORDERED: HEPARIN SOD (PORCINE) 1,000 UNIT/ML 10 ML VIAL ONE (07:31)
[2019-03-04] MEDS ORDERED: LIDOCAINE 2%/EPINEPHRINE INJ 20 ML VIAL ONE (07:38)
[2019-03-04] MEDS ORDERED: ROPIVACAINE HCL 0.5% INJ/PF (5 MG/1 ML) 30 ML SDV ONE (07:38)
[2019-03-04] MEDS ORDERED: FENTANYL CITRATE INJ/PF 100 MCG/2 ML AMPUL IV PRN ×3 (08:35)
[2019-03-04] MEDS ORDERED: ONDANSETRON HCL INJ/PF 4 MG/2 ML SDV IV PRN (08:35)
[2019-03-04] MEDS ORDERED: PROMETHAZINE HCL INJ 25 MG/1 ML VIAL IV PRN ×2 (08:35)
[2019-03-04] MEDS ORDERED: MEPERIDINE HCL/PF INJ 25 MG/1 ML DISP.SYRIN IV PRN (08:35)
[2019-03-04] MEDS ORDERED: DIPHENHYDRAMINE HCL 50 MG/ML VIAL IV PRN (08:35)
--- NOTE | 2019-03-04 10:43 | Discharge Summary ---
Discharge Summary (SDC) - Discharge Final Diagnosis: #1 malfunctioning peritoneal dialysis catheter. 2. End-stage renal disease on dialysis. 3. Diabetes mellitus type 2. 4. COPD. 5. Hypertension. Date of Surgery: 03/04/19 Discharge Date: 03/04/19 Condition: Poor Treatment or Instructions: Discharge home [after recovery per ASU criteria]. Diet , [renal],as tolerated, when fully awake advance as tolerated. Activities within moderation encouraged. Follow up in my office by appointment in about [1 week]. Call for appointment. Leave wounds [covered], [keep clean and dry, until office visit in 1 week]. Meds per med rec. Percocet. May shower [in 48 hrs], [try to keep operated area as dry as possible]. Prescriptions: Oxycodone HCl/Acetaminophen [Percocet 5-325 mg Tablet] 1 tab PO ASDIR PRN #15 tab PRN Reason: Referrals: [facility] [[facility]] - Discharge Diet: Other (Comments) - Renal, diabetic Respiratory Treatments at Home: Deep Breathing/Coughing Report the Following to Your Physician Immediately: Fever over 101 Degrees, Unusual Bleeding
--- NOTE | 2019-03-04 10:48 | Operative Report ---
Operative Report DATE OF SURGERY: 03/04/19 PREOPERATIVE DIAGNOSIS: #1 malfunctioning peritoneal dialysis catheter. 2. En d-stage renal disease on dialysis. 3. Diabetes mellitus type 2. 4. COPD. 5. Hypertension. POSTOPERATIVE DIAGNOSIS: #1 malfunctioning peritoneal dialysis catheter. 2. E nd-stage renal disease on dialysis. 3. Diabetes mellitus type 2. 4. COPD. 5. Hypertension. OPERATION: Insertion of brachiocephalic arteriovenous fistula left upper forea . SURGEON: CONSUELO TRIPP INFORMATION DELIVERY ANALYST: None. ANESTHESIA: LMAC TISSUE REMOVED OR ALTERED: Not applicable. COMPLICATIONS: Some bruising and hematoma noted in the subcutaneous tissue, possibly from prior vena puncture. Anatomy is somewhat distorted. ESTIMATED BLOOD LOSS: 5 mL. INTRAOPERATIVE FINDINGS: Of hematoma in the subcutaneous space, some tissue ulceration, possibly due to a hematoma to venipuncture. The cephalic vein was of satisfactory caliber, it did taper to about 3 mm distally. The brachial artery was relatively free of disease with 1 band of calcification distally which was avoided. Anastomosis was satisfactorily conducted, bruit at the end of the procedure was questionable. Appropriate pulse in the vein. Cautiously optimistic outlook. PROCEDURE: Operative Report PROCEDURE: After reviewing the procedure with the patient, he was taken to the operating room. The patient was sedated and the left upper extremity] prepared with chlorhexidine and draped out with sterile linen. After the "" universal timeout", in which it was verified that the patient [received IV antibiotics] the procedure commenced. The sterilely sheathed ultrasound probe was used to evaluate the left venous and arterial systems, pertinent to the previously done vein mapping. Local anesthesia was infiltrated and a longitudinal incision made over the upper forearm, near the antecubital fossa. Dissection proceeded through the subcutaneous tissues down to the cephalic vein. This was dissected out proximally and distally for about 2 cm. Likewise major branches. The Bicipital aponeurosis was now incised longitudinally and the brachial artery dissected out for a distance of about 1.5 cm. Rubber loops were placed on either end. The patient was given 2500 units of heparin intravenously. The deep branch of the cephalic vein was transected, after clipping. The distal cephalic vein was clipped and transected irrigated with heparinized solution. The distal branches were clipped The artery was controlled proximally and distally with rubber loops. An arteriotomy approximately [1 cm] in length was made, the artery was irrigated proximally and distally with heparinized solution. The transected vein was now spatulated [using the branch patch technique], it was then anastomosed end to end to side into the brachial artery. This was done using a continuous suture of 6-0 Prolene. Controls of the fistula were now released and it was analyzed using a Doppler probe. Hemostasis was secured once optimal func tion was assured, the wound was irrigated with antibiotic containing solution and closed. Closure was done using interrupted 3-0 PDS for the subcutaneous tissues. The skin was closed using a continuous subcutaneous suture of 4-0 Monocryl which was reinforced with Steri-Strips over benzoin. I then left the operative field and returned with a stethoscope covered with a sterile Tegaderm dressing. This allowed external auscultation of the fistula. Auscultation was reasonable. The procedure was concluded by applying a Kerlix dressing over the surgical site. DICTATING PHYSICIAN: CONSUELO WEBER M.D.
--- NOTE | 2019-03-04 10:55 | Operative Report ---
Operative Report DATE OF SURGERY: 03/04/19 PREOPERATIVE DIAGNOSIS: 1. Malfunctioning peritoneal dialysis catheter. 2. E nd-stage renal disease requiring dialysis. 3. COPD. 4. Diabetes mellitus type 2. 5. Hypertension. POSTOPERATIVE DIAGNOSIS: 1. Malfunctioning peritoneal dialysis catheter. 2. End-stage renal disease requiring dialysis. 3. COPD. 4. Diabetes mellitus type 2. 5. Hypertension. OPERATION: Removal of peritoneal dialysis catheter. Surgically. SURGEON: CONSUELO TRIPP MILLER DISTILLERY: None. ANESTHESIA: LMAC TISSUE REMOVED OR ALTERED: Not applicable. COMPLICATIONS: Finding of loose superficial cuff with a small amount of purulent material at the exit site. This was cultured. Quite unusual amount of scarring around the deep cuff which is in the rectus sheath. Dissected free of surrounding tissues and the entire catheter removed and poor to portions. ESTIMATED BLOOD LOSS: 5 mL. INTRAOPERATIVE FINDINGS: Finding of loose superficial cuff with a small amount of purulent material at the exit site. This was cultured. Quite unusual amount of scarring around the deep cuff which is in the rectus sheath. Dissected free of surrounding tissues and the entire catheter removed and poor to portions. PROCEDURE: After obtaining informed consent and going over the procedure with [the patient and his family], He was taken to the operating room, [he was] anesthetized appropriately. a left-sided brachiocephalic fistula was inserted. The abdomen was prepped and draped in the usual sterile fashion. After the universal timeout, in which it was verified that the patient received IV antibiotic, the procedure commenced. The topographical location for the peritoneal dialysis catheter was sketched by applying it to the anterior abdominal wall. Slight traction was placed on the catheter externally and at this point point it was realized that the external cuff was completely loose and at that there was a small amount of purulent material which was expressed. This was sent for culture. A longitudinal incision was sketched over the palpable apex of the catheter. Local anesthesia infiltrated just prior. The incision was now made and carried through the subcutaneous tissues down to the catheter in the subcutaneous tissues. The catheter was now transected and the external portion removed and discarded. A hemostat was placed on the catheter and gentle traction was placed on it. The external rectus sheath was now incised over the catheter and the catheter traced down to the cuff. The cuff was then dissected just distally so as to reveal the portion of the catheter just deep to the cuff. This was grasped and traction applied. The remainder of the catheter came free completely. Traction was now placed on both ends of the catheter thus elevating the cuff. Dissection proceeded close to the cuffs circumferentially and it was removed and discarded. The wound was then inspected for hemostasis. Once satisfied the rectus sheath was reconstituted using interrupted 3-0 PDS. 3-0 PDS sutures were now placed fairly loosely in a vertical mattress fashion. Dry gauze and tape applied and the procedure concluded.
[2019-03-04 12:16] VITALS: BP 135/80
== END 2019-03-04 12:35 | disposition home or self-care (01) ==
LOC: OROUT 05:48
PROVIDERS: ATTEND Surgery
DX: T82.858A Stenosis of other vascular prosthetic devices, implants and grafts, initial encounter (principal); Y83.2 Surgical operation with anastomosis, bypass or graft as the cause of abnormal reaction of the patient, or of later complication, without mention of misadventure at the time of the procedure; E11.22 Type 2 diabetes mellitus with diabetic chronic kidney disease; I13.2 Hypertensive heart and chronic kidney disease with heart failure and with stage 5 chronic kidney disease, or end stage renal disease; N18.6 End stage renal disease; Z99.2 Dependence on renal dialysis; J44.9 Chronic obstructive pulmonary disease, unspecified; D64.9 Anemia, unspecified; E78.5 Hyperlipidemia, unspecified; I25.10 Atherosclerotic heart disease of native coronary artery without angina pectoris; Z99.81 Dependence on supplemental oxygen; I50.9 Heart failure, unspecified; Z79.82 Long term (current) use of aspirin; Z79.4 Long term (current) use of insulin
CPT/HCPCS: 36415; 87070; 87205; 85027; 87075; 80048; 71045; 93005; 93010; 49422; J2795; J2250; J3490 ×5; J0690; J3010; J1644; J2405; J7060; J2704; 1844

== ENCOUNTER 2019-04-18 16:58 | Emergency (ER) | payer OTHER, MEDICARE ==
[2019-04-18 17:21] VITALS: BP 146/48
--- NOTE | 2019-04-18 17:43 | ER Document Report ---
HPI - HPI Patient complains to provider of: Catheter problem Time Seen by Provider: 04/18/19 17:39 Onset: This afternoon Onset/Duration: Sudden Pain Level: Denies Context: Patient has an indwelling catheter to leg bag. Patient states that the leg bag tore and he needs it replaced. Patient states that he had problems with draining his urine and had the catheter placed several months ago. Patient states that he is currently being treated for UTI by his primary doctor. Patient denies any fever or abdominal tenderness. Exacerbated by: Denies Relieved by: Denies Similar symptoms previously: No Recently seen / treated by doctor: No - ROS ROS below otherwise negative: Yes Systems Reviewed and Negative: Yes All other systems reviewed and negative - CONSTITUTIONAL Constitutional: DENIES: Fever, Chills - GASTROINTESTINAL Gastrointestinal: DENIES: Abdominal Pain, Nausea, Patient vomiting - URINARY Urinary: DENIES: Dysuria - DERM Skin Color: Normal Skin Problems: None Past Medical History - General Information source: Patient - Social History Smoking Status: Never Smoker Frequency of alcohol use: None Drug Abuse: None Lives with: Family Family History: CAD, DM, Hypertension - Past Medical History Cardiac Medical History: Reports: Hx Congestive Heart Failure, Hx Coronary Artery Disease - STENTS, Hx Heart Attack, Hx Hypercholesterolemia, Hx Hypertension Pulmonary Medical History: Reports: Hx COPD, Hx Respiratory Failure Endocrine Medical History: Reports: Hx Diabetes Mellitus Type 2 Renal/ Medical History: Reports: Hx Benign Prostatic Hyperplasia, Hx End Stage Renal Disease, Hx Peritoneal Dialysis GI Medical History: Reports: Hx Diverticulitis Skin Medical History: Denies Hx Eczema, Denies Hx Psoriasis Psychiatric Medical History: Reports: Hx Depression Infectious Medical History: Reports: Hx C-Diff Past Surgical History: Reports: Hx Abdominal Surgery - meckels diverticulum, Hx Cardiac Catheterization, Hx Coronary Stent - X2, Other - Small bowel resection; adhesion lysis; peritoneal dialysis access Vertical Provider Document - CONSTITUTIONAL Agree With Documented VS: Yes Exam Limitations: No Limitations General Appearance: WD/WN, No Apparent Distress - INFECTION CONTROL TRAVEL OUTSIDE OF THE [place] IN LAST 30 DAYS: No - HEENT HEENT: Atraumatic, Normocephalic - NECK Neck: Normal Inspection, Supple - RESPIRATORY Respiratory: Breath Sounds Normal, No Respiratory Distress - CARDIOVASCULAR Cardiovascular: Regular Rate, Regular Rhythm - REPRODUCTIVE Notes: 16 Frisian Moraes to leg bag. Bag had tore and patient taped up a bandage over the end of the bag to collect the excess urine. - BACK Back: Normal Inspection - NEURO Level of Consciousness: Awake, Alert, Appropriate - DERM Integumentary: Warm, Dry, No Rash Course - Re-evaluation Re-evalutation: 04/18/19 18:36 Patient states that he is already currently being treated for UTI by his primary doctor. We will replace patient's catheter and leg bag at this time. Patient encouraged to recheck with his primary doctor for follow-up. - Vital Signs Vital signs: Temp Pulse Resp BP Pulse Ox 98.1 F 75 16 146/48 H 93 04/18/19 17:20 04/18/19 17:20 04/18/19 17:20 04/18/19 17:20 04/18/19 17:20 Discharge - Discharge Clinical Impression: Moraes catheter problem Qualifiers: Encounter type: initial encounter Qualified Code(s): T83.9XXA - Unspecified complication of genitourinary prosthetic device, implant and graft, initial encounter Condition: Stable Disposition: HOME, SELF-CARE Instructions: Moraes Catheter Care ([facility]) Additional Instructions: Return immediately for any new or worsening symptoms Followup with your primary care provider, call tomorrow to make a followup appointment Follow up with urology, call Sunday for an appointment Referrals: [facility] [[facility]] - Follow up as needed [facility] [Provider Group] - Follow up as needed
[2019-04-18] MEDS ORDERED: LIDOCAINE 2% URO-JET 5 ML KIT MM ONE (18:34)
== END 2019-04-18 19:13 | disposition home or self-care (01) ==
LOC: ER 16:58
DX: T83.9XXA Unspecified complication of genitourinary prosthetic device, implant and graft, initial encounter (principal); I50.9 Heart failure, unspecified; I25.10 Atherosclerotic heart disease of native coronary artery without angina pectoris; I11.0 Hypertensive heart disease with heart failure; J44.9 Chronic obstructive pulmonary disease, unspecified; E11.9 Type 2 diabetes mellitus without complications
CPT/HCPCS: 99283; 51702; J3490

== ENCOUNTER 2019-05-27 09:43 | Day surgery (SDC) | payer OTHER, MEDICARE ==
[2019-05-26 11:36] LABS: HEMATOCRIT 37.1 % (37.9-51.0); HEMOGLOBIN 11.7 g/dL (13.5-17.0); MEAN CORPUSCULAR HEMOGLOBIN 27.9 pg (27.0-33.4); MEAN CORPUSCULAR HGB CONC 31.5 g/dL (32.0-36.0); MEAN CORPUSCULAR VOLUME 89 fl (80-97); PLATELET COUNT 201 10^3/uL (150-450); RED BLOOD COUNT 4.19 10^6/uL (4.35-5.55); RED CELL DISTRIBUTION WIDTH 19.4 % (11.5-14.0); WHITE BLOOD COUNT 7.2 10^3/uL (4.0-10.5)
[2019-05-26 12:01] LABS: ANION GAP 13 (5-19); BLOOD UREA NITROGEN 41 mg/dL (7-20); CALCIUM 9.3 mg/dL (8.4-10.2); CARBON DIOXIDE 23 mmol/L (22-30); CHLORIDE 103 mmol/L (98-107); GLUCOSE 160 mg/dL (75-110); POTASSIUM 4.5 mmol/L (3.6-5.0)
--- NOTE | 2019-05-26 13:16 | EKG REPORT ---
SEVERITY:- BORDERLINE ECG - SINUS RHYTHM S1,S2,S3 PATTERN BORDERLINE T ABNORMALITIES, DIFFUSE LEADS : Confirmed by: Yaya Pike MD 26-May-2019 13:15:14
[~2019-05-27 09:43] MED LIST changes: +CEFAZOLIN 1 GM/D5W RTU 1 GM/50 ML RTUPB IV PRN; -CEFAZOLIN SODIUM 1 GM in DEXTROSE 5%-WATER 50 ML IV PRN; +LIDOCAINE 0.5% INJ-PF (5 MG/ML) 50 ML SDV SUBCUT PRN; +NORMAL SALINE 1000 ML (RENAL PATIENTS) IV PRN
[2019-05-27] MEDS ORDERED: LIDOCAINE 2% INJ (20 MG/ML) 20 ML MDV ONE (10:04)
[2019-05-27] MEDS ORDERED: LIDOCAINE 1%/EPINEPHRINE INJ 20 ML VIAL ONE (10:04)
[2019-05-27] MEDS ORDERED: ROPIVACAINE HCL 0.5% INJ/PF (5 MG/1 ML) 30 ML SDV ONE (10:04)
[2019-05-27] MEDS ORDERED: BUPIVACAINE HCL 0.25 % INJ/PF (2.5 MG/1 ML) 30 ML VIAL ONE (10:06)
[2019-05-27] MEDS ORDERED: LIDOCAINE 1% INJ-PF (10 MG/ML) 30 ML SDV ONE (10:06)
[2019-05-27] MEDS ORDERED: LIDOCAINE 0.5% INJ-PF (5 MG/ML) 50 ML SDV ONE (10:07)
[2019-05-27] MEDS ORDERED: BACITRACIN INJ 50,000 UNIT VIAL ONE (10:07)
[2019-05-27] MEDS ORDERED: HEPARIN SOD (PORCINE) 1,000 UNIT/ML 10 ML VIAL ONE (10:07)
[2019-05-27] MEDS ORDERED: MIDAZOLAM 2 MG/2 ML INJ ONE (10:45)
[2019-05-27] MEDS ORDERED: PROPOFOL INJ 200 MG/20 ML VIAL IV ONE (10:45)
[2019-05-27] MEDS ORDERED: CEFAZOLIN 1 GM/D5W RTU 1 GM/50 ML RTUPB IV ONE (11:30)
--- NOTE | 2019-05-27 12:39 | PDOC H&P ---
General Chief Complaint: #1 malfunctioning AV fistula, right radiocephalic. 2. Hyperkalemia. 3. End-stage renal disease on dialysis . 4. Diabetes mellitus type 2. 5. Hypertension. - Current Medications/Allergies Home Medications: Aspirin [Aspirin 81 mg Chewable Tablet] 81 mg PO DAILY 10/09/18 Atorvastatin Calcium [Lipitor 80 mg Tablet] 80 mg PO QHS 10/09/18 Docusate Sodium [Colace 100 mg Capsule] 100 mg PO BID 10/09/18 Escitalopram Oxalate [Lexapro] 10 mg PO DAILY 10/09/18 Insulin Aspart [Novolog Insulin (Aspart) 100 unit/mL] 1 unit SUBCUT .SLD SCALE 10/09/18 Insulin Glargine,Hum.rec.anlog [Lantus Insulin 100 Unit/1 ml 10 ml] 80 unit SUBCUT QHS 10/09/18 Ipratropium/Albuterol Sulfate [Combivent Respimat 4 gm Mdi] 1 puff IH QIDP PRN 10/09/18 Ipratropium/Albuterol Sulfate [Duoneb 3 ml Ampul] 3 ml NEB RTQIDP PRN 10/09/18 Isosorbide Mononitrate [Imdur 30 mg Tablet.er] 30 mg PO DAILY 10/09/18 Omeprazole 20 mg PO Q6AM 10/09/18 Lactulose [Kristalose 20 gm Packet] 20 gm PO DAILY 03/03/19 Multivitamin [Multivitamins] 1 cap PO DAILY 05/26/19 Terazosin HCl 2 mg PO QHS 05/26/19 Allergies/Adverse Reactions: codeine Adverse Reaction (Intermediate, Verified 05/26/19 10:07) Past Medical History Cardiac Medical History: Reports: Congestive Heart Failure, Myocardial Infarction - X2 WITH STENTS 2004, 2009, Hyperlipidema, Hypertension Denies: Atrial Fibrillation, Coronary Artery Disease, DVT, Pulmonary Embolism Pulmonary Medical History: Reports: Chronic Obstructive Pulmonary Disease (COPD), Pneumonia, Respiratory Failure Denies: Asthma, Bronchitis Neurological Medical History: Denies: Seizures Endocrine Medical History: Reports: Diabetes Mellitus Type 2 Denies: Diabetes Mellitus Type 1, Hyperthyroidism, Hypothyroidism Renal/ Medical History: Reports: End Stage Renal Disease GI Medical History: Reports: Diverticulitis Denies: Cirrhosis, Hepatitis Musculoskeltal Medical History: Denies: Arthritis, Gout Skin Medical History: Denies: Eczema, Psoriasis Psychiatric Medical History: Reports: Depression Hematology: Reports: Anemia Denies: Bleeding Tendencies Infectious Medical History: Reports: Clostridium Difficile Past Surgical History Past Surgical History: Reports: Cardiac Catheterization, Coronary Stent - X2, Other - Small bowel resection; adhesion lysis; peritoneal dialysis access Family History Family History: CAD, DM, Hypertension Parental Family History Reviewed: No Children Family History Reviewed: No Sibling(s) Family History Reviewed.: No Social History Smoking Status: Former Smoker Frequency of Alcohol Use: None Hx Recreational Drug Use: No Drugs: None Hx Prescription Drug Abuse: No Physical Exam Vital Signs: Temp Pulse Resp BP Pulse Ox 98 F 59 L 17 162/70 H 100 05/27/19 10:49 05/27/19 10:49 05/27/19 10:49 05/27/19 10:49 05/27/19 10:49 Intake & Output 05/26/19 05/27/19 05/28/19 06:59 06:59 06:59 Intake Total 0 Balance 0 Weight 81.65 kg 81.65 kg Additional comments: Constitutional: Well-developed well-nourished -[place] gentleman. No apparent acute distress. Eyes: Mucous membranes pink and moist, pupils equal and reactive to light. Conjunctiva normal. Cornea normal. ENT: Hearing grossly normal. External pinna normal to inspection. Teeth intact. Tongue normal to inspection. Cardiac: Heart sounds 1 and 2 normal,. Respiratory: . Normal respiratory effort. Psychiatric: Judgment, memory, insight seem normal. Mood is pleasant and appropriate. Extremities: Upper extremities show normal range of movement. Pulses present noted to the radial arteries. Capillary refill normal. No cyanosis noted. No muscle wasting noted. Right-sided radiocephalic fistula. Distinct difference in strength of pulsation noted about 3 cm from the anastomosis possibly indicating culprit lesion. Neurovascular: No apparent tremors, gait normal. Sensation grossly intact. Hearing grossly normal. Vison grossly intact. Impression/Plan Plan: In this patient with a malfunctioning AV fistula, hyperkalemia, angiogram and possibly angioplasty is recommended. Will initiate treatment of hyperkalemia as well possibly postoperatively. The procedure, its risks, benefits, expected outcome and alternatives are familiar to the patient and he wishes to proceed.
--- NOTE | 2019-05-27 12:41 | Discharge Summary ---
Discharge Summary (SDC) - Discharge Final Diagnosis: #1 malfunctioning AV fistula, right radiocephalic. 2. Hyperkalemia. 3. End-stage renal disease on dialysis . 4. Diabetes mellitus type 2. 5. Hypertension. Date of Surgery: 05/27/19 Discharge Date: 05/27/19 Condition: Fair Treatment or Instructions: Discharge home [after recovery per ASU criteria]. Diet , [renal],as tolerated, when fully awake advance as tolerated. Activities within moderation encouraged. Follow up in my office by appointment in about [1 week]. Call for appointment. Leave wounds [covered], [keep clean and dry, until office visit in 1 week]. Meds per med rec. Initiate treatment of hyperkalemia before discharge. Kayexalate 30 g orally and calcium gluconate 1 g insulin. Patient reminded to attend dialysis tomorrow. May shower [in 48 hrs], [try to keep operated area as dry as possible]. Referrals: [facility] [[facility]] - Discharge Diet: Other (Comments)
[2019-05-27] MEDS ORDERED: DEXMEDETOMIDINE INJ 80 MCG/20 ML VIAL IV ONE (12:48)
[2019-05-27] MEDS ORDERED: DIPHENHYDRAMINE HCL 50 MG/ML VIAL IV PRN (14:08)
[2019-05-27] MEDS ORDERED: FENTANYL CITRATE INJ/PF 100 MCG/2 ML AMPUL IV PRN ×3 (14:08)
[2019-05-27] MEDS ORDERED: ONDANSETRON HCL INJ/PF 4 MG/2 ML SDV IV PRN (14:08)
--- NOTE | 2019-05-27 15:03 | Operative Report ---
Operative Report DATE OF SURGERY: 05/27/19 PREOPERATIVE DIAGNOSIS: 1. End-stage renal disease on hemodialysis. #2 diabet es mellitus type 2. 3. Hypertension. POSTOPERATIVE DIAGNOSIS: #1 malfunctioning AV fistula, right radiocephalic. 2. Hyperkalemia. 3. End-stage renal disease on dialysis . 4. Diabetes mellitus type 2. 5. Hypertension. OPERATION: 1. End-stage renal disease on hemodialysis. #2 diabetes mellitus type 2. 3. Hypertension. SURGEON: CONSUELO TRIPP HEMMING AND TACKING MACHINE OPERATOR: None. ANESTHESIA: LMAC TISSUE REMOVED OR ALTERED: Not applicable. COMPLICATIONS: None. ESTIMATED BLOOD LOSS: 20 mL. INTRAOPERATIVE FINDINGS: Of a well-established left arm transposed basilic fistula. Significant renal veins in the cephalic vein which was ligated with improvement. The fistula is still somewhat immature and estimated to be about 6 mm in diameter. Strength of flow might need to be improved. Successful transposition into the subcuticular tunnel easily palpable. Function demonstrated to the end of the procedure. Adjacent nerve was carefully preserved as much as possible. PROCEDURE: Operative Report PROCEDURE: After reviewing the procedure with the patient, and his family, he was taken to the operating room. The patient was sedated and the left upper extremity prepared with chlorhexidine and draped out with sterile linen. After the "" universal timeout", in which it was verified that the patient [received IV antibiotics] the procedure commenced. The sterilely sheathed ultrasound probe was used to evaluate the size and topographic location of the existing veins. The fistula function was noted. This was transcribed topographical using a marking pen. Local anesthesia was infiltrated and a longitudinal incision started just above the elbow and dissection proceeded down to the vein. Sequential infiltration of local anesthesia, incision and dissection of the vein proceeded up to the axillary fold. The basilic vein was now dissected away from its branches which were either clipped and/or ligated and divided. In this way the basilic vein was freed up for its entire visible length. Its length was now measured with a dry umbilical tape which was used to transpose a tunnel onto the skin anteriorly and laterally. With this marked in ink, local anesthesia was infiltrated in the skin and subcutaneous tissue of the tunnel. A Ligonier tunneler was now inserted and the tunnel exposed. Serial sutures of 3-0 PDS were placed at about 3 cm intervals and placed on clamps. These gave lateral traction. Cautery was now used to incise the subcutaneous tissues so as to reveal the [place]onier tunneler. The length of the basilic vein was now shifted into the tunnel and sustained there by interrupted sutures of 3-0 PDS placed from the subcutaneous tissue on one side of the tunnel to the other. Once this was done the lateral flap was now approximated to the medial flap using interrupted sutures of 3-0 PDS. The fistula was interrogated from time to time to make sure that it was patent. A 1 5 [place] Raul drain was placed deep in the wound and exiting inferiorly the it was sutured using 2-0 Prolene. The skin was closed with a continuous subcutaneous suture of 4-0 Monocryl. Steri-Strips were applied over benzoin and then a Kerlix wrap. The procedure was concluded. Copies dictated operative report to Dr. Consuelo Pemberton MD thank you. DICTATING PHYSICIAN: CONSUELO PEMBERTON M.D
--- NOTE | 2019-05-27 15:45 | Discharge Summary ---
Discharge Summary (SDC) - Discharge Final Diagnosis: 1. End-stage renal disease on hemodialysis. #2 diabetes mellitus type 2. 3. Hypertension. Date of Surgery: 05/27/19 Condition: Poor Treatment or Instructions: Discharge home [after recovery per ASU criteria]. Diet , [renal], diabetic, as tolerated, when fully awake advance as tolerated. Activities within moderation encouraged. Follow up in my office by appointment on of this week for drain removal. Call for appointment. Leave wounds [covered], [keep clean and dry, until office visit later this week. Meds per med rec. Percocet prescription May shower [in 48 hrs], [try to keep operated area as dry as possible]. Prescriptions: Oxycodone HCl/Acetaminophen [Percocet 5-325 mg Tablet] 1 tab PO ASDIR PRN #15 tab PRN Reason: Oxycodone HCl/Acetaminophen [Percocet 5-325 mg Tablet] 1 tab PO ASDIR PRN #15 tab PRN Reason: Oxycodone HCl/Acetaminophen [Percocet 5-325 mg Tablet] 1 tab PO ASDIR PRN #15 tab PRN Reason: Referrals: [facility] [[facility]] - Discharge Diet: Other (Comments) - Renal, Diabetic.
[2019-05-27 18:20] VITALS: BP 151/55
== END 2019-05-27 17:15 | disposition home or self-care (01) ==
LOC: OROUT 09:43
PROVIDERS: ATTEND Surgery
DX: E11.22 Type 2 diabetes mellitus with diabetic chronic kidney disease (principal); I12.0 Hypertensive chronic kidney disease with stage 5 chronic kidney disease or end stage renal disease; N18.6 End stage renal disease; Z99.2 Dependence on renal dialysis; E87.5 Hyperkalemia; Z79.82 Long term (current) use of aspirin; Z79.4 Long term (current) use of insulin; Z79.899 Other long term (current) drug therapy; Z79.51 Long term (current) use of inhaled steroids; Z88.5 Allergy status to narcotic agent; E78.5 Hyperlipidemia, unspecified; Z99.81 Dependence on supplemental oxygen; I25.10 Atherosclerotic heart disease of native coronary artery without angina pectoris; Z87.891 Personal history of nicotine dependence; J44.9 Chronic obstructive pulmonary disease, unspecified; I25.2 Old myocardial infarction
CPT/HCPCS: 93005; 36415 ×2; 82962; 82947; 84132; 85027; 80048; 93010; 36821; J2795; J2250; J3490 ×6; J0690; J1644; J2704; J1642

== ENCOUNTER 2019-05-27 20:59 | Emergency (ER) | payer OTHER, MEDICARE ==
--- NOTE | 2019-05-27 21:38 | ER Document Report ---
ED Medical Screen (RME) - General Chief Complaint: Arm Pain Stated Complaint: REPORTS FISTULA BLEEDING Time Seen by Provider: 05/27/19 21:29 Primary Care Provider: CHRISTA,JEAN [Primary Care Provider] - Follow up as needed Mode of Arrival: Wheelchair Information source: Patient Notes: Patient had a fistula placed to the left arm today. Patient with dressing in place. Patient states that he noticed that his blood saturating his bandage and a pillow that he had his arm sitting on. Patient does complain of mild dizziness but states that he always has a symptom. Patient reports a history of COPD, hypertension, diabetes, CHF and dialysis. I have greeted and performed a rapid initial assessment of this patient. A comprehensive ED assessment and evaluation of the patient, analysis of test results and completion of the medical decision making process will be conducted by additional ED providers. TRAVEL OUTSIDE OF THE [place] IN LAST 30 DAYS: No - Related Data Allergies/Adverse Reactions: codeine Adverse Reaction (Intermediate, Verified 05/26/19 10:07) Past Medical History - Past Medical History Cardiac Medical History: Reports: Hx Congestive Heart Failure, Hx Heart Attack - X2 WITH STENTS 2004, 2009, Hx Hypercholesterolemia, Hx Hypertension Denies: Hx Atrial Fibrillation, Hx Coronary Artery Disease, Hx DVT, Hx Pulmonary Embolism Pulmonary Medical History: Reports: Hx COPD, Hx Pneumonia, Hx Respiratory Failure Denies: Hx Asthma, Hx Bronchitis Neurological Medical History: Denies: Hx Cerebrovascular Accident, Hx Seizures Endocrine Medical History: Reports: Hx Diabetes Mellitus Type 2. Denies: Hx Diabetes Mellitus Type 1, Hx Hyperthyroidism, Hx Hypothyroidism Renal/ Medical History: Reports: Hx Benign Prostatic Hyperplasia, Hx End Stage Renal Disease, Hx Peritoneal Dialysis GI Medical History: Reports: Hx Diverticulitis. Denies: Hx Cirrhosis, Hx Hepatitis Musculoskeltal Medical History: Denies Hx Arthritis, Denies Hx Gout Skin Medical History: Denies Hx Eczema, Denies Hx Psoriasis Psychiatric Medical History: Reports: Hx Depression Infectious Medical History: Reports: Hx C-Diff. Denies: Hx Hepatitis Past Surgical History: Reports: Hx Abdominal Surgery - meckels diverticulum, Hx Cardiac Catheterization, Hx Coronary Stent - X2, Other - Small bowel resection; adhesion lysis; peritoneal dialysis access - Immunizations Hx Diphtheria, Pertussis, Tetanus Vaccination: Yes Physical Exam - Vital signs Vitals: Temp Pulse Resp BP Pulse Ox 98.1 F 83 18 163/52 H 95 05/27/19 21:07 05/27/19 21:07 05/27/19 21:07 05/27/19 21:07 05/27/19 21:07 - General General appearance: Alert Notes: Patient with bulky dressing to left upper arm, bottom third of dressing saturated with red blood, very minimal sanguinous drainage noted to JAYCEE bulb Course - Vital Signs Vital signs: Temp Pulse Resp BP Pulse Ox 98.1 F 83 18 163/52 H 95 05/27/19 21:07 05/27/19 21:07 05/27/19 21:07 05/27/19 21:07 05/27/19 21:07 Doctor's Discharge - Discharge Referrals: [facility] [Primary [facility]] - Follow up as needed
[2019-05-27 21:57] LABS: ABSOLUTE BASOPHILS # (AUTO) 0.2 10^3/uL (0.0-0.2); ABSOLUTE EOSINOPHILS # (AUTO) 0.1 10^3/uL (0.0-0.6); ABSOLUTE LYMPHOCYTES (AUTO) 0.8 10^3/uL (0.5-4.7); ABSOLUTE NEUT (AUTO) 8.8 10^3/uL (1.7-8.2); BASOPHILS % (AUTO) 1.4 % (0-2); EOSINOPHILS % (AUTO) 1.3 % (0-6); HEMATOCRIT 39.6 % (37.9-51.0); HEMOGLOBIN 12.5 g/dL (13.5-17.0); LYMPHOCYTES % (AUTO) 7.4 % (13-45); MEAN CORPUSCULAR HEMOGLOBIN 28.1 pg (27.0-33.4); MEAN CORPUSCULAR HGB CONC 31.5 g/dL (32.0-36.0); MEAN CORPUSCULAR VOLUME 89 fl (80-97); MONOCYTES % (AUTO) 8.9 % (3-13); RED BLOOD COUNT 4.44 10^6/uL (4.35-5.55); TOTAL CELLS COUNTED % (AUTO) 100 %; WHITE BLOOD COUNT 10.9 10^3/uL (4.0-10.5)
--- NOTE | 2019-05-27 22:20 | ER Document Report ---
ED General - General Chief Complaint: Post Surgical Bleeding Stated Complaint: REPORTS FISTULA BLEEDING Time Seen by Provider: 05/27/19 21:29 Primary Care Provider: JEAN GOODWIN [NO LOCAL MD] - Follow up as needed Mode of Arrival: Wheelchair TRAVEL OUTSIDE OF THE [place] IN LAST 30 DAYS: No - HPI Notes: Patient is a 68-year-old male who presents to the emergency department for evaluation. He had an AV fistula placed by Dr. Pemberton today. He went home at 530. At 830 he noticed that the blood had saturated through all of his bandages, so he presents here to the emergency department for evaluation. He feels mildly dizzy but states this is not different for him. The patient also was concerned he might have a urinary tract infection. He has an indwelling Moraes catheter. He states the color of his urine concerns him. He denies any fevers or chills. No nausea or vomiting. He is eating and drinking normally. Patient does normally take baby aspirin, he has not had any aspirin in 5 days. - Related Data Allergies/Adverse Reactions: codeine Adverse Reaction (Intermediate, Verified 05/26/19 10:07) Home Medications: carvedilol, omemprazol, isosorbide, aspirin, multivitamin, atorvastatin Past Medical History - General Information source: Patient - Social History Smoking Status: Former Smoker Chew tobacco use (# tins/day): No Frequency of alcohol use: None Drug Abuse: None Family History: CAD, DM, Hypertension Patient has suicidal ideation: No Patient has homicidal ideation: No - Past Medical History Cardiac Medical History: Reports: Hx Congestive Heart Failure, Hx Heart Attack - X2 WITH STENTS 2004, 2009, Hx Hypercholesterolemia, Hx Hypertension Denies: Hx Atrial Fibrillation, Hx Coronary Artery Disease, Hx DVT, Hx Pulmonary Embolism Pulmonary Medical History: Reports: Hx COPD, Hx Pneumonia, Hx Respiratory Failure Denies: Hx Asthma, Hx Bronchitis Neurological Medical History: Denies: Hx Cerebrovascular Accident, Hx Seizures Endocrine Medical History: Reports: Hx Diabetes Mellitus Type 2. Denies: Hx Diabetes Mellitus Type 1, Hx Hyperthyroidism, Hx Hypothyroidism Renal/ Medical History: Reports: Hx Benign Prostatic Hyperplasia, Hx End Stage Renal Disease, Hx Peritoneal Dialysis GI Medical History: Reports: Hx Diverticulitis. Denies: Hx Cirrhosis, Hx Hepatitis Musculoskeletal Medical History: Denies Hx Arthritis, Denies Hx Gout Skin Medical History: Denies Hx Eczema, Denies Hx Psoriasis Psychiatric Medical History: Reports: Hx Depression Infectious Medical History: Reports: Hx C-Diff. Denies: Hx Hepatitis Past Surgical History: Reports: Hx Abdominal Surgery - meckels diverticulum, Hx Cardiac Catheterization, Hx Coronary Stent - X2, Other - Small bowel resection; adhesion lysis; peritoneal dialysis access - Immunizations Hx Diphtheria, Pertussis, Tetanus Vaccination: Yes Hx Pneumococcal Vaccination: 03/26/18 Review of Systems - Review of Systems Genitourinary: See HPI Hematologic/Lymphatic: See HPI -: Yes All other systems reviewed and negative Physical Exam - Vital signs Vitals: Temp Pulse Resp BP Pulse Ox 98.1 F 83 18 163/52 H 95 05/27/19 21:07 05/27/19 21:07 05/27/19 21:07 05/27/19 21:07 05/27/19 21:07 - Notes Notes: This is a very pleasant 68-year-old male who appears his stated age in no acute distress. Head is normocephalic and atraumatic, pupils are equal round, reactive to light. Onychosis moist. Heart regular rate and rhythm, lungs show mildly diminished breath sounds but no wheezes, rales, rhonchi. Examination of left upper extremity yields a bloodsoaked bandage. This is taken down. Fistula has a palpable thrill. He does have a small amount of bleeding coming from wound, no signs of dehiscence. He does have a JAYCEE drain in place with a small amount of blood noted. Neurovascularly intact distally. Abdomen is soft, nontender, normoactive bowel sounds. Skin is warm and dry. Course - Re-evaluation Re-evalutation: 05/27/19 22:19 Patient presents the emergency department for evaluation. He had CBC as ordered through triage. I did order a urinalysis at the patient's request. The patient's surgical wound was evaluated. An area of bleeding was discovered. I placed Gelfoam with a very small amount of pressure over the area, being sure not to in any way pressed over the fistula itself. We will wait a short period of time to see if hemostasis is achieved. Patient is stable at this time, we will continue to monitor. 05/28/19 00:44 Gelfoam and pressure did not cause hemostasis. Dr. Hong graciously came down and placed a suture, stop the bleeding. The patient tolerated this well. Patient's urine shows large white blood cells, but I believe he has been coloni zed. He often has yeast. He has no systemic symptoms. I am not inclined to treat with antibiotics, but we will give him a short course of fluconazole. Patient also states he has pain in his left arm from the surgical procedure. He was sent home with Percocet but states that it did not help at all. He states he had significant relief in the past from pain with Tylenol with codeine. He is given 2 Tylenol 3's here. He is to follow-up with Dr. Pemberton in 2 days. Return to the ED with worsening. - Vital Signs Vital signs: Temp Pulse Resp BP Pulse Ox 98.1 F 83 18 163/52 H 95 05/27/19 21:07 05/27/19 21:07 05/27/19 21:07 05/27/19 21:07 05/27/19 21:07 - Laboratory Result Diagrams: 05/27/19 21:40 Laboratory results interpreted by me: 05/27/19 05/27/19 21:40 22:03 WBC 10.9 H Hgb 12.5 L MCHC 31.5 L RDW 19.0 H Lymph % (Auto) 7.4 L Absolute Neuts (auto) 8.8 H Seg Neutrophils % 81.0 H Urine Protein >=500 H Urine Glucose (UA) >=500 H Urine Blood LARGE H Ur Leukocyte Esterase MODERATE H Discharge - Discharge Clinical Impression: Postoperative bleeding from incision, Bleeding from new AV fistula site Urinary tract infection Qualifiers: Urinary tract infection type: acute cystitis Hematuria presence: without hematuria Qualified Code(s): N30.00 - Acute cystitis without hematuria Condition: Stable Disposition: HOME, SELF-CARE Instructions: Urinary Tract Infection ([facility]) Additional Instructions: The findings in your urine are most consistent with a yeast overgrowth. Take the fluconazole as directed until gone. A suture has been placed to stop the bleeding at your AV fistula site. Please keep bandage in place as discussed. Follow-up with Dr. Pemberton in 1 to 2 days. Return to the emergency department if you develop worsening or new concerning symptoms of any sort. Referrals: [facility] [NO LOCAL MD] - Follow up as needed
[2019-05-27 22:32] LABS: PLATELET COUNT 192 10^3/uL (150-450)
[2019-05-27 22:58] LABS: APPEARANCE,URINE TURBID; BILIRUBIN,URINE NEGATIVE (NEGATIVE); COLOR,URINE YELLOW; GLUCOSE, URINE >=500 mg/dL (NEGATIVE); KETONES,URINE NEGATIVE (NEGATIVE); LEUKOCYTE ESTERASE,URINE MODERATE (NEGATIVE); NITRITE,URINE NEGATIVE (NEGATIVE); PROTEIN,URINE >=500 mg/dL (NEGATIVE); URINE SPECIFIC GRAVITY 1.022; UROBILINOGEN,URINE NEGATIVE mg/dL (<2.0)
--- NOTE | 2019-05-28 00:25 | PDOC CONSULTATION ---
Consultation Consult Date: 05/28/19 Attending physician:: NESHA SOLOMON Provider Consulted: BLANCA JESUS Consult reason:: post surgical bleeding History of Present Illness History of Present Illness: CELIO WAGNER is a 68 year old male who presents to the emergency department for evaluation. He had an AV fistula placed by Dr. Pemberton today. He went home at 530. At 830 he noticed that the blood had saturated through all of his bandages, so he presents here to the emergency department for evaluation. He feels mildly dizzy but states this is not different for him. The patient also was concerned he might have a urinary tract infection. He has an indwelling Moraes catheter. He states the color of his urine concerns him. He denies any fevers or chills. No nausea or vomiting. He is eating and drinking normally. Patient does normally take baby aspirin, he has not had any aspirin in 5 days. Surgery is been consulted to control the postsurgical bleeding. Past Medical History Cardiac Medical History: Reports: Congestive Heart Failure, Myocardial Infarction - X2 WITH STENTS 2004, 2009, Hyperlipidema, Hypertension Denies: Atrial Fibrillation, Coronary Artery Disease, DVT, Pulmonary Embolism Pulmonary Medical History: Reports: Chronic Obstructive Pulmonary Disease (COPD), Pneumonia, Respiratory Failure Denies: Asthma, Bronchitis Neurological Medical History: Denies: Seizures Endocrine Medical History: Reports: Diabetes Mellitus Type 2 Denies: Diabetes Mellitus Type 1, Hyperthyroidism, Hypothyroidism Renal/ Medical History: Reports: End Stage Renal Disease GI Medical History: Reports: Diverticulitis Denies: Cirrhosis, Hepatitis Musculoskeltal Medical History: Denies: Arthritis, Gout Skin Medical History: Denies: Eczema, Psoriasis Psychiatric Medical History: Reports: Depression Hematology: Reports: Anemia Denies: Bleeding Tendencies Infectious Medical History: Reports: Clostridium Difficile Past Surgical History Past Surgical History: Reports: Cardiac Catheterization, Coronary Stent - X2, Other - Small bowel resection; adhesion lysis; peritoneal dialysis access Social History Smoking Status: Former Smoker Electronic Cigarette use?: No Frequency of Alcohol Use: None Hx Recreational Drug Use: No Drugs: None Hx Prescription Drug Abuse: No Family History Family History: CAD, DM, Hypertension Parental Family History Reviewed: No Children Family History Reviewed: NA Sibling(s) Family History Reviewed.: NA Medication/Allergy Home Medications: Aspirin [Aspirin 81 mg Chewable Tablet] 81 mg PO DAILY 10/09/18 Atorvastatin Calcium [Lipitor 80 mg Tablet] 80 mg PO QHS 10/09/18 Docusate Sodium [Colace 100 mg Capsule] 100 mg PO BID 10/09/18 Escitalopram Oxalate [Lexapro] 10 mg PO DAILY 10/09/18 Insulin Aspart [Novolog Insulin (Aspart) 100 unit/mL] 1 unit SUBCUT .SLD SCALE 10/09/18 Insulin Glargine,Hum.rec.anlog [Lantus Insulin 100 Unit/1 ml 10 ml] 80 unit SUBCUT QHS 10/09/18 Ipratropium/Albuterol Sulfate [Combivent Respimat 4 gm Mdi] 1 puff IH QIDP PRN 10/09/18 Ipratropium/Albuterol Sulfate [Duoneb 3 ml Ampul] 3 ml NEB RTQIDP PRN 10/09/18 Isosorbide Mononitrate [Imdur 30 mg Tablet.er] 30 mg PO DAILY 10/09/18 Omeprazole 20 mg PO Q6AM 10/09/18 Nitroglycerin 0.4 mg SL PRN PRN #20 tab.subl 01/20/19 Lactulose [Kristalose 20 gm Packet] 20 gm PO DAILY 03/03/19 Multivitamin [Multivitamins] 1 cap PO DAILY 05/26/19 Terazosin HCl 2 mg PO QHS 05/26/19 Oxycodone HCl/Acetaminophen [Percocet 5-325 mg Tablet] 1 tab PO ASDIR PRN #15 tab 05/27/19 Oxycodone HCl/Acetaminophen [Percocet 5-325 mg Tablet] 1 tab PO ASDIR PRN #15 tab 05/27/19 Oxycodone HCl/Acetaminophen [Percocet 5-325 mg Tablet] 1 tab PO ASDIR PRN #15 tab 05/27/19 Allergies/Adverse Reactions: codeine Adverse Reaction (Intermediate, Verified 05/26/19 10:07) Review of Systems Constitutional: PRESENT: weakness Eyes: ABSENT: as per HPI, visual disturbances, other Ears: ABSENT: as per HPI, hearing changes, other Nose, Mouth, and Throat: ABSENT: as per HPI, headache(s), mouth pain, sore throat, vertigo, other Breasts: ABSENT: as per HPI, other Cardiovascular: ABSENT: as per HPI, chest pain, dyspnea on exertion, edema, orthropnea, palpitations, other Gastrointestinal: ABSENT: as per HPI, abdominal pain, bloating, coffee ground emesis, constipation, diarrhea, dysphagia, heartburn, hematemesis, hematochezia, melena, nausea, vomiting, other Genitourinary: ABSENT: as per HPI, difficulty urinating, dysuria, hematuria, nocturia, other Musculoskeletal: ABSENT: as per HPI, back pain, deformity, joint swelling, muscle weakness, other Integumentary: PRESENT: other - Pain in the left thigh medial forearm from previous surgery today Neurological: ABSENT: as per HPI, abnormal gait, abnormal movements, abnormal speech, confusion, convulsions, dizziness, focal weakness, frequent falls, lack of coordination, memory loss, numbness, paresthesias, restless legs, syncope, tingling, tremor(s), vertigo, weakness, other Psychiatric: ABSENT: as per HPI, anxiety, depression, hallucinations, homidical ideation, suicidal ideation, other Endocrine: ABSENT: as per HPI, cold intolerance, flushing, heat intolerance, menstrual abnormalities, polydipsia, polyphagia, polyuria, other Hematologic/Lymphatic: ABSENT: as per HPI, easy bleeding, easy bruising, lymphadenopathy, other Allergic/Immunologic: ABSENT: as per HPI, seasonal rhinorrhea, other Physical Exam Vital Signs: Temp Pulse Resp BP Pulse Ox 98.1 F 83 18 163/52 H 95 05/27/19 21:07 05/27/19 21:07 05/27/19 21:07 05/27/19 21:07 05/27/19 21:07 Intake & Output 05/26/19 05/27/19 05/28/19 06:59 06:59 06:59 Weight 81 kg General appearance: PRESENT: no acute distress Head exam: PRESENT: normocephalic Eye exam: PRESENT: EOMI Ear exam: PRESENT: normal external ear exam Mouth exam: PRESENT: moist Teeth exam: PRESENT: poor dentation Neck exam: PRESENT: full ROM Respiratory exam: PRESENT: clear to auscultation yair Cardiovascular exam: PRESENT: RRR Pulses: PRESENT: normal carotid pulses, normal femoral pulses, other - Weak rad ial pulse in the left arm however hand is warm with good capillary refill Vascular exam: PRESENT: normal capillary refill Breast: PRESENT: Normal GI/Abdominal exam: PRESENT: normal bowel sounds, soft Rectal exam: PRESENT: deferred Gentrourinary exam: ABSENT: ecchymosis, erythema, lacerations, lesions, scrotal swelling, testicular tenderness, urethral discharge, indwelling catheter, other Extremities exam: PRESENT: other - Left medial forearm has a Raphael-Stoll drain entering at the antecubital fossa at the most distal portion of the incision t here is a small persistent bleed from the epidermis. This was controlled with 1 [id number] suture of 4-0 Prolene in the dermis Neurological exam: PRESENT: alert, awake, oriented to person, oriented to place Psychiatric exam: PRESENT: appropriate affect Skin exam: PRESENT: dry Results Laboratory Results: 05/27/19 21:40 05/27/19 05/27/19 21:40 22:03 WBC 10.9 H RBC 4.44 Hgb 12.5 L Hct 39.6 MCV 89 MCH 28.1 MCHC 31.5 L RDW 19.0 H Plt Count 192 Seg Neutrophils % 81.0 H Urine Color YELLOW Urine Appearance TURBID Urine pH 5.0 Ur Specific [place] 1.022 Urine Protein >=500 H Urine Glucose (UA) >=500 H Urine Ketones NEGATIVE Urine Blood LARGE H Urine Nitrite NEGATIVE Ur Leukocyte Esterase MODERATE H Urine WBC (Auto) >182 Urine RBC (Auto) 178 Assessment & Plan - Plan Summary Plan Summary: Pression status post AV fistula placement this afternoon now with persistent bleeding from a skin edges at the distal aspect of the incision controlled with 1 jumyfe-qx-ygbui placed 4-0 Prolene suture. The incision was then redressed and the patient is stable for discharge home he will follow-up with Dr. Pemberton in 2 days.
[2019-05-28] MEDS ORDERED: FLUCONAZOLE 100 MG TABLET PO ONE (00:42)
[2019-05-28] MEDS ORDERED: ACETAMINOPHEN WITH CODEINE #3 TABLET PO ONE (00:43)
[2019-05-28 01:09] VITALS: BP 162/62
== END 2019-05-28 01:11 | disposition home or self-care (01) ==
LOC: ER 20:59
DX: T82.838A Hemorrhage due to vascular prosthetic devices, implants and grafts, initial encounter (principal); L76.22 Postprocedural hemorrhage of skin and subcutaneous tissue following other procedure; Y83.2 Surgical operation with anastomosis, bypass or graft as the cause of abnormal reaction of the patient, or of later complication, without mention of misadventure at the time of the procedure; T83.518A Infection and inflammatory reaction due to other urinary catheter, initial encounter; N30.00 Acute cystitis without hematuria; Y84.6 Urinary catheterization as the cause of abnormal reaction of the patient, or of later complication, without mention of misadventure at the time of the procedure; I50.9 Heart failure, unspecified; I11.0 Hypertensive heart disease with heart failure; E78.00 Pure hypercholesterolemia, unspecified; J44.9 Chronic obstructive pulmonary disease, unspecified; E11.9 Type 2 diabetes mellitus without complications; Z88.6 Allergy status to analgesic agent; I25.2 Old myocardial infarction
CPT/HCPCS: 36415; 81001; 85025; 87086; 87088; 87186; 99284

== ENCOUNTER 2019-08-20 13:01 | Emergency (ER) | payer MEDICARE, OTHER ==
[2019-08-20] MEDS ORDERED: LIDOCAINE 2% URO-JET 5 ML KIT MM ONE (14:53)
[2019-08-20 15:42] LABS: APPEARANCE,URINE TURBID; BILIRUBIN,URINE NEGATIVE (NEGATIVE); COLOR,URINE YELLOW; GLUCOSE, URINE >=500 mg/dL (NEGATIVE); KETONES,URINE NEGATIVE (NEGATIVE); LEUKOCYTE ESTERASE,URINE LARGE (NEGATIVE); NITRITE,URINE NEGATIVE (NEGATIVE); PROTEIN,URINE >=500 mg/dL (NEGATIVE); URINE SPECIFIC GRAVITY 1.014; UROBILINOGEN,URINE NEGATIVE mg/dL (<2.0)
[2019-08-20 15:57] LABS: ABSOLUTE BASOPHILS # (AUTO) 0.1 10^3/uL (0.0-0.2); ABSOLUTE EOSINOPHILS # (AUTO) 0.2 10^3/uL (0.0-0.6); ABSOLUTE LYMPHOCYTES (AUTO) 0.8 10^3/uL (0.5-4.7); ABSOLUTE MONOCYTES (AUTO) 0.9 10^3/uL (0.1-1.4); BASOPHILS % (AUTO) 0.9 % (0-2); EOSINOPHILS % (AUTO) 1.6 % (0-6); HEMATOCRIT 40.7 % (37.9-51.0); HEMOGLOBIN 13.2 g/dL (13.5-17.0); LYMPHOCYTES % (AUTO) 7.9 % (13-45); MEAN CORPUSCULAR HGB CONC 32.4 g/dL (32.0-36.0); MEAN CORPUSCULAR VOLUME 93 fl (80-97); MONOCYTES % (AUTO) 9.5 % (3-13); PLATELET COUNT 227 10^3/uL (150-450); RED CELL DISTRIBUTION WIDTH 16.3 % (11.5-14.0); SEGMENTED NEUTROPHILS % (AUTO) 80.1 % (42-78); TOTAL CELLS COUNTED % (AUTO) 100 %; WHITE BLOOD COUNT 9.9 10^3/uL (4.0-10.5)
[2019-08-20 16:03] LABS: ALBUMIN 4.5 g/dL (3.5-5.0); ALKALINE PHOSPHATASE 173 U/L (38-126); ANION GAP 15 (5-19); ASPARTATE AMINO TRANSFERASE 16 U/L (17-59); BILIRUBIN,DIRECT 0.2 mg/dL (0.0-0.4); BILIRUBIN,TOTAL 0.7 mg/dL (0.2-1.3); BLOOD UREA NITROGEN 51 mg/dL (7-20); CALCIUM 9.5 mg/dL (8.4-10.2); CARBON DIOXIDE 29 mmol/L (22-30); CHLORIDE 93 mmol/L (98-107); GLUCOSE 350 mg/dL (75-110); POTASSIUM 5.3 mmol/L (3.6-5.0); TOTAL PROTEIN 7.7 g/dL (6.3-8.2)
--- NOTE | 2019-08-20 16:13 | RADIOLOGY REPORT (SQ) ---
EXAM DESCRIPTION: KUB/ABDOMEN (SINGLE VIEW) IMAGES COMPLETED DATE/TIME: 08/20/2019 3:53 pm REASON FOR STUDY: urinary obstruction COMPARISON: AP view of the abdomen from 10/17/2018. NUMBER OF VIEWS: One view. TECHNIQUE: Supine radiographic image of the abdomen acquired. LIMITATIONS: None. FINDINGS: BOWEL GAS PATTERN: No dilated loops of bowel. CALCIFICATIONS: No calcifications projecting within the renal fossae or along the expected course of the ureters. SOFT TISSUES: The lucent appearance of the mid abdomen is nonspecific. HARDWARE: ORIF hardware in the proximal left femur. BONES: Osteopenia. OTHER: No other finding. IMPRESSION: Nonobstructive bowel gas pattern. TECHNICAL DOCUMENTATION: JOB ID: [id number] 2010 [employer]- All Rights Reserved Reading location - IP/workstation name: [email or web address]
[2019-08-20] MEDS ORDERED: CIPROFLOXACIN HCL 500 MG TABLET PO ONE (18:16)
--- NOTE | 2019-08-20 18:38 | ER Document Report ---
Entered by DOMINIK MONTILLA SCRIBE 08/20/19 [id number] Acting as scribe for:PARMJIT CELESTE MD ED GI/ - General Chief Complaint: Inability to Void Stated Complaint: ABDOMINAL PAIN Time Seen by Provider: 08/20/19 13:39 Primary Care Provider: NICOLÁS OLIVO PA-C [Primary Care Provider] - Follow up as needed Information source: Patient Notes: This 68 year old male patient presents to the emergency department today with inability to void. Patient states he last urinated x8 hours ago and it was yellow, not dark or red. Patient states this is a reoccurring problem and has been catheterized before. Patient states he has a large prostate and has penile pain ranked 5/5. Patient states he is not on any medications to help with urinating. TRAVEL OUTSIDE OF THE [place] IN LAST 30 DAYS: No - Related Data Allergies/Adverse Reactions: codeine Adverse Reaction (Intermediate, Verified 05/26/19 10:07) Past Medical History - General Information source: Patient - Social History Smoking Status: Former Smoker Cigarette use (# per day): No Frequency of alcohol use: None Drug Abuse: None Family History: Reviewed & Not Pertinent, CAD, DM, Hypertension Patient has homicidal ideation: No - Past Medical History Cardiac Medical History: Reports: Hx Congestive Heart Failure, Hx Heart Attack - X2 WITH STENTS 2004, 2009, Hx Hypercholesterolemia, Hx Hypertension Pulmonary Medical History: Reports: Hx COPD, Hx Pneumonia, Hx Respiratory Failure Endocrine Medical History: Reports: Hx Diabetes Mellitus Type 2 Renal/ Medical History: Reports: Hx Benign Prostatic Hyperplasia, Hx End Stage Renal Disease, Hx Peritoneal Dialysis GI Medical History: Reports: Hx Diverticulitis Psychiatric Medical History: Reports: Hx Depression Infectious Medical History: Reports: Hx C-Diff Past Surgical History: Reports: Hx Abdominal Surgery - meckels diverticulum, Hx Cardiac Catheterization, Hx Coronary Stent - X2, Other - Small bowel resection; adhesion lysis; peritoneal dialysis access - Immunizations Hx Diphtheria, Pertussis, Tetanus Vaccination: Yes Hx Pneumococcal Vaccination: 03/26/18 Review of Systems - Review of Systems Constitutional: No symptoms reported EENT: No symptoms reported Cardiovascular: No symptoms reported Respiratory: No symptoms reported Gastrointestinal: No symptoms reported Genitourinary: See HPI, Other - Inability to void Male Genitourinary: See HPI, Other - Penile pain Musculoskeletal: No symptoms reported Skin: No symptoms reported Hematologic/Lymphatic: No symptoms reported Neurological/Psychological: No symptoms reported -: Yes All other systems reviewed and negative Physical Exam - Vital signs Vitals: Temp Pulse Resp BP Pulse Ox 98.3 F 109 H 18 157/85 H 100 08/20/19 13:02 08/20/19 13:02 08/20/19 13:02 08/20/19 13:02 08/20/19 13:02 - General General appearance: Alert In distress: Moderate - HEENT Head: Normocephalic, Atraumatic Eyes: Normal Pupils: PERRL - Respiratory Respiratory status: No respiratory distress Chest status: Nontender Breath sounds: Normal Chest palpation: Normal - Cardiovascular Rhythm: Regular Heart sounds: Normal auscultation Murmur: No - Abdominal Inspection: Normal Bowel sounds: Normal Notes: Slightly distended in the suprapubic region. Tenderness with palpation to the suprapubic region. - Extremities General upper extremity: Normal inspection. No: Edema General lower extremity: Normal inspection. No: Edema - Neurological Neuro grossly intact: Yes Cognition: Normal Orientation: AAOx4 - Psychological Associated symptoms: Normal affect, Normal mood - Skin Skin Temperature: Warm Skin Moisture: Dry Skin Color: Normal Course - Re-evaluation Re-evalutation: 08/20/19 18:32 Patient feels comfortable at this time now that her Valente catheter is draining his bladder. Patient insists on keeping and maintaining his Valente catheter in place until he can follow-up with urologist. Patient is placed on ciprofloxacin for 1 week 500 mg q. other day. Patient is rescheduled for hemodialysis tomorrow instead of today as he is missed his appointment time today due to the problems of urinary obstruction. 08/20/19 18:36 Case was discussed with Nicolás Olivo who advised the patient is scheduled for dialysis tomorrow at 11:00 at the [facility] dialysis center. - Vital Signs Vital signs: Temp Pulse Resp BP Pulse Ox 98.3 F 109 H 18 157/85 H 100 08/20/19 13:02 08/20/19 13:02 08/20/19 13:02 08/20/19 13:02 08/20/19 13:02 - Laboratory Result Diagrams: 08/20/19 15:38 08/20/19 15:38 Laboratory results interpreted by me: 0508/20/19 08/20/19 15:20 15:38 15:38 Hgb 13.2 L RDW 16.3 H Lymph % (Auto) 7.9 L Seg Neutrophils % 80.1 H Sodium 136.6 L Potassium 5.3 H Chloride 93 L BUN 51 H Creatinine 6.33 H Est GFR ( Amer) 11 L Est GFR (MDRD) Non-Af 9 L Glucose 350 H AST 16 L Alkaline Phosphatase 173 H Urine Protein >=500 H Urine Glucose (UA) >=500 H Urine Blood SMALL H Ur Leukocyte Esterase LARGE H Patient has chronic renal failure and urinalysis with pyuria. Patient's potassi um is 5.3. Patient's is not showing signs of overt failure with 2 L nasal O2 sats 99% not showing any distress. 08/20/19 18:35 Patient has elevated glucose level 350 on repeat it was 278. - Diagnostic Test Radiology reviewed: Image reviewed, Reports reviewed Radiology results interpreted by me: 08/20/19 18:35 KUB x-ray shows nonspecific bowel gas pattern no evidence of any obstruction no stones seen. Discharge - Discharge Clinical Impression: Urinary obstruction, Urinary tract infection, End-stage renal disease on hemodialysis, Hypertension, Diabetes Condition: Fair Disposition: HOME, SELF-CARE Instructions: Urinary Tract Infection ([facility]) Additional Instructions: You have been referred to kidney Failure When your kidneys no longer filter the blood adequately, we call this "kidney failure." While kidney failure can happen suddenly, usually it's the result of many years of slow damage. Kidneys can be injured by many different medical problems including infections, diabetes, high blood pressure, kidney stones, drug toxicity, and immune reactions. The symptoms of kidney failure do not develop until most of the normal kidney tissue has been lost. Early kidney failure usually has no symptoms. As it gets worse, symptoms can include weakness, confusion, high blood pressure, swelling, nausea, anemia, and itching. The seriousness of kidney failure is determined by measuring kidney function tests such as BUN or creatinine. The cause of kidney failure may be obvious from the medical history, but occasionally requires special tests such as an angiogram or kidney biopsy. Kidney failure can cause high blood pressure, and uncontrolled hypertension damages kidneys. Good control of blood pressure is important. If you have diabet es, good blood sugar control helps prevent further kidney damage. Fluid retention can be monitored by checking your weight daily. It's best to eat a diet low in protein, potassium, and salt. When kidney failure becomes severe, dialysis or kidney transplant may be required. Call the doctor or return if you develop significant weakness, repeated vomiting, severe lightheadedness, confusion, severe headache, or other serious change in your health. Urinary Retention Urinary retention is inability to empty the bladder. It can result from a urine infection, or from mechanical problems such as an enlarged prostate gland or swelling of the urethra. Drugs or alcohol can also lead to urine retention. The condition is usually treated by passage of a catheter. If the physician thinks the problem will continue, the catheter may be left in place for a few days. Sometimes drugs are used to stimulate the bladder if the physician feels that inadequate bladder contraction is the cause. If the condition leading to the retention is a chronic one, such as an enlarged prostate, you will be referred to a specialist for further care. Call the physician or return if you develop fever, flank or back pain, pain on urination, or recurrent difficulty passing the urine. You are scheduled for the [facility] hemodialysis tomorrow at 11:00. You have been referred to Dr. Nellie Macario of [facility] urology service see your discharge papers for a request for follow-up in 3 to [address] Macario a call for an appointment. Prescriptions: Ciprofloxacin HCl [Cipro] 500 mg PO ASDIR PRN #3 tablet PRN Reason: Referrals: NICOLÁS OLIVO PA-C [Primary Care Provider] - Follow up as needed NELLIE MACARIO MD [NO LOCAL MD] - Follow up in 3-5 days (urinary retention in endstage renal failure patient , hemodialysis, and urinates daily. Urinalysis shows positive leukocyte esterase positive, and nitrite negative. Culture obtained and begun on Cipro 500 mg q other day x 3 doses. Patient is adamant of continuing his valente catheter in place and needs follow up with urologist.) I personally performed the services described in the documentation, reviewed and edited the documentation which was dictated to the scribe in my presence, and it accurately records my words and actions.
[2019-08-20 18:51] VITALS: BP 178/84
== END 2019-08-20 18:50 | disposition home or self-care (01) ==
LOC: ER 13:01
DX: N39.0 Urinary tract infection, site not specified (principal); N13.9 Obstructive and reflux uropathy, unspecified; R33.9 Retention of urine, unspecified; E78.00 Pure hypercholesterolemia, unspecified; E11.22 Type 2 diabetes mellitus with diabetic chronic kidney disease; I13.2 Hypertensive heart and chronic kidney disease with heart failure and with stage 5 chronic kidney disease, or end stage renal disease; I50.9 Heart failure, unspecified; N18.6 End stage renal disease; Z99.2 Dependence on renal dialysis; Z88.6 Allergy status to analgesic agent; I25.2 Old myocardial infarction
CPT/HCPCS: 99283; 51702; 36415; 87086; 82962; 85025; 80053; 81001; 74018; A9270 ×2; J3490

== ENCOUNTER 2019-09-09 00:39 | Emergency (ER) | payer OTHER, MEDICARE ==
[2019-09-09] MEDS ORDERED: LIDOCAINE 2% URO-JET 5 ML KIT MM ONE (01:06)
--- NOTE | 2019-09-09 01:17 | ER Document Report ---
ED General <SHIRA GALEANO JR - Last Filed: 09/09/19 05:35> - General TRAVEL OUTSIDE OF THE [place] IN LAST 30 DAYS: No <ALEX KAY - Last Filed: 09/09/19 10:39> - General Chief Complaint: Urinary Retention Stated Complaint: URINARY ISSUE Time Seen by Provider: 09/09/19 01:09 Primary Care Provider: SYED WHITING MD [NO LOCAL MD] - Follow up in 3-5 days NICOLÁS FLORES PA-C [ALLIED HEALTH PROFESSIONAL] - Follow up as needed Notes: Seeen by Dr. Galeano (ALEX KAY) - Related Data Allergies/Adverse Reactions: codeine Adverse Reaction (Intermediate, Verified 09/09/19 01:01) Past Medical History - General Information source: Patient - Social History Smoking Status: Former Smoker Chew tobacco use (# tins/day): Yes Frequency of alcohol use: None Family History: Reviewed & Not Pertinent, CAD, DM, Hypertension Patient has homicidal ideation: No - Past Medical History Cardiac Medical History: Reports: Hx Congestive Heart Failure, Hx Heart Attack - X2 WITH STENTS 2004, 2009, Hx Hypercholesterolemia, Hx Hypertension Denies: Hx Atrial Fibrillation, Hx Coronary Artery Disease, Hx DVT, Hx Pulmonary Embolism Pulmonary Medical History: Reports: Hx COPD, Hx Pneumonia, Hx Respiratory Failure Denies: Hx Asthma, Hx Bronchitis Neurological Medical History: Denies: Hx Cerebrovascular Accident, Hx Seizures Endocrine Medical History: Reports: Hx Diabetes Mellitus Type 2. Denies: Hx Diabetes Mellitus Type 1, Hx Hyperthyroidism, Hx Hypothyroidism Renal/ Medical History: Reports: Hx Benign Prostatic Hyperplasia, Hx End Stage Renal Disease, Hx Peritoneal Dialysis GI Medical History: Reports: Hx Diverticulitis. Denies: Hx Cirrhosis, Hx Hepatitis Musculoskeletal Medical History: Denies Hx Arthritis, Denies Hx Gout Skin Medical History: Denies Hx Eczema, Denies Hx Psoriasis Psychiatric Medical History: Reports: Hx Depression Infectious Medical History: Reports: Hx C-Diff. Denies: Hx Hepatitis Past Surgical History: Reports: Hx Abdominal Surgery - meckels diverticulum, Hx Cardiac Catheterization, Hx Coronary Stent - X2, Other - Small bowel resection; adhesion lysis; peritoneal dialysis access - Immunizations Hx Diphtheria, Pertussis, Tetanus Vaccination: Yes Hx Pneumococcal Vaccination: 03/26/18 <ALEX KAY - Last Filed: 09/09/19 10:39> Review of Systems <ALEX KAY - Last Filed: 09/09/19 10:39> - Review of Systems Notes: REVIEW OF SYSTEMS GEN: Denies fever, chills, weight loss ENT: Denies sore throat, nasal discharge, ear pain EYES: Denies blurry vision, eye pain, discharge CV: Denies chest pain, palpitations, edema RESP: Denies cough, shortness of breath, wheezing GI: See HPI MSK: Chronic pain and weakness SKIN: Denies rash, skin lesions LYMPH: Denies swollen glands/lymph nodes NEURO: Denies headache, focal weakness or numbness, dizziness PSYCH: Denies depression, suicidal or homicidal ideation PHYSICAL EXAMINATION General: No acute distress, well-nourished Head: Atraumatic, normocephalic ENT: Mouth normal, oropharynx moist, no exudates or tonsillar enlargement Eyes: Conjunctiva normal, pupils equal, lids normal Neck: No JVD, supple, no guarding CVS: Normal rate, regular rhythm, no murmurs Resp: No resp distress, equal and normal breath sounds bilaterally GI: Nondistended, soft, no tenderness to palpation, no rebound or guarding Ext: No deformities, no edema, normal range of motion in upper and lower ext Back: No CVA or midline TTP Skin: No rash, warm Lymphatic: No lymphadeopathy noted Neuro: Awake, alert. Face symmetric. GCS 15. (KALIJACOBOALEX Claire) Physical Exam - Vital signs Vitals: Temp Pulse Resp BP Pulse Ox 97.3 F 77 16 101/85 94 09/09/19 00:44 09/09/19 00:44 09/09/19 00:44 09/09/19 00:44 09/09/19 00:44 Course - Laboratory Result Diagrams: 09/09/19 02:35 09/09/19 02:35 <SHIRA GALEANO JR - Last Filed: 09/09/19 05:35> - Laboratory Result Diagrams: 09/09/19 02:35 09/09/19 02:35 <ALEX KAY - Last Filed: 09/09/19 10:39> - Vital Signs Vital signs: Temp Pulse Resp BP Pulse Ox 97.8 F 63 22 H 149/49 H 100 09/09/19 09:32 09/09/19 09:32 09/09/19 09:32 09/09/19 09:32 09/09/19 09:32 - Laboratory Laboratory results interpreted by me: 09/09/19 09/09/19 09/09/19 02:30 02:35 02:35 RBC 3.90 L Hgb 11.9 L Hct 36.6 L RDW 16.1 H Chloride 97 L BUN 49 H Creatinine 4.57 H Est GFR ( Amer) 15 L Est GFR (MDRD) Non-Af 13 L Glucose 254 H Urine Protein 100 H Urine Glucose (UA) 150 H Urine Blood LARGE H Ur Leukocyte Esterase MODERATE H Critical Care Note - Critical Care Note Total time excluding time spent on procedures (mins): 90 <SHIRA GALEANO JR - Last Filed: 09/09/19 05:35> - Critical Care Note Comments: Please note this patient was here last month for abdominal pain and this year has had a diagnosis of UTI and last year had a diagnosis of sepsis. For this reason Dr. Norberto Arroyo was called for admission for this patient. I spoke to Dr. Arroyo about this patient and also with the patient himself. Patient does not want to stay adamantly. Also patient had a Moraes placed for his urine which was very purulent according to staff. Patient reports he only puts out around 100 mL of urine daily.Pt was written for Vancomycin/Rocephin and advised he with accept this. He feels much improved after getting 500 mils of fluid. Patient receives dialysis with Dr. Sunshine Sunday (SHIRA GALEANO JR) Discharge <SHIRA GALEANO JR - Last Filed: 09/09/19 05:35> <ALEX KAY - Last Filed: 09/09/19 10:39> - Discharge Clinical Impression: Urinary retention, ESRD (end stage renal disease), Generalized weakness UTI (urinary tract infection) Qualifiers: Urinary tract infection type: site unspecified Hematuria presence: without hematuria Qualified Code(s): N39.0 - Urinary tract infection, site not specified Condition: Good Disposition: HOME, SELF-CARE Additional Instructions: Follow-up with personal doctor urologist therapeutic strategy lead this week return to ER as needed take medicines as directed. Encourage fluids Prescriptions: Nitrofurantoin Monohyd/M-Cryst [Macrobid 100 mg Capsule] 100 mg PO BID #14 cap Referrals: NICOLÁS FLORES, PAJodieC [ALLIED HEALTH PROFESSIONAL] - Follow up as needed POINT,SYED Llamas MD [NO LOCAL MD] - Follow up in 3-5 days
[2019-09-09] MEDS ORDERED: NORMAL SALINE 500 ML IV ONE (02:27)
[2019-09-09 03:04] LABS: ABSOLUTE BASOPHILS # (AUTO) 0.2 10^3/uL (0.0-0.2); ABSOLUTE EOSINOPHILS # (AUTO) 0.3 10^3/uL (0.0-0.6); ABSOLUTE LYMPHOCYTES (AUTO) 1.1 10^3/uL (0.5-4.7); ABSOLUTE MONOCYTES (AUTO) 0.9 10^3/uL (0.1-1.4); ABSOLUTE NEUT (AUTO) 5.8 10^3/uL (1.7-8.2); EOSINOPHILS % (AUTO) 3.6 % (0-6); HEMATOCRIT 36.6 % (37.9-51.0); HEMOGLOBIN 11.9 g/dL (13.5-17.0); LYMPHOCYTES % (AUTO) 13.2 % (13-45); MEAN CORPUSCULAR HEMOGLOBIN 30.5 pg (27.0-33.4); MEAN CORPUSCULAR HGB CONC 32.5 g/dL (32.0-36.0); MEAN CORPUSCULAR VOLUME 94 fl (80-97); MONOCYTES % (AUTO) 11.2 % (3-13); PLATELET COUNT 209 10^3/uL (150-450); RED CELL DISTRIBUTION WIDTH 16.1 % (11.5-14.0); TOTAL CELLS COUNTED % (AUTO) 100 %; WHITE BLOOD COUNT 8.3 10^3/uL (4.0-10.5)
[2019-09-09 03:18] LABS: APPEARANCE,URINE TURBID; BILIRUBIN,URINE NEGATIVE (NEGATIVE); COLOR,URINE YELLOW; GLUCOSE, URINE 150 mg/dL (NEGATIVE); KETONES,URINE NEGATIVE (NEGATIVE); LEUKOCYTE ESTERASE,URINE MODERATE (NEGATIVE); NITRITE,URINE NEGATIVE (NEGATIVE); PROTEIN,URINE 100 mg/dL (NEGATIVE); URINE SPECIFIC GRAVITY 1.018; UROBILINOGEN,URINE NEGATIVE mg/dL (<2.0)
[2019-09-09 03:20] LABS: ANION GAP 14 (5-19); BLOOD UREA NITROGEN 49 mg/dL (7-20); CALCIUM 9.3 mg/dL (8.4-10.2); CARBON DIOXIDE 26 mmol/L (22-30); CHLORIDE 97 mmol/L (98-107); GLUCOSE 254 mg/dL (75-110)
[2019-09-09] MEDS ORDERED: CEFTRIAXONE INJ 1000 MG VIAL IV ONE (05:12)
[2019-09-09] MEDS ORDERED: VANCOMYCIN HCL INJ 1000 MG VIAL IV ONE (05:12)
[2019-09-09 09:40] VITALS: BP 149/49
== END 2019-09-09 10:09 | disposition home or self-care (01) ==
LOC: ER 00:39
DX: N39.0 Urinary tract infection, site not specified (principal); R33.9 Retention of urine, unspecified; R53.1 Weakness; I13.2 Hypertensive heart and chronic kidney disease with heart failure and with stage 5 chronic kidney disease, or end stage renal disease; I50.9 Heart failure, unspecified; E11.22 Type 2 diabetes mellitus with diabetic chronic kidney disease; N18.6 End stage renal disease; G89.29 Other chronic pain; Z88.8 Allergy status to other drugs, medicaments and biological substances; Z87.891 Personal history of nicotine dependence; I25.2 Old myocardial infarction; J44.9 Chronic obstructive pulmonary disease, unspecified; E11.9 Type 2 diabetes mellitus without complications
CPT/HCPCS: 99285; 51702; 96365; 36415; 87040; 87086; 85025; 80048; 81001; J0696; J7040; J3370; J3490

== ENCOUNTER 2019-11-11 14:58 | Observation (INO) | payer OTHER, MEDICARE ==
--- NOTE | 2019-11-11 15:29 | ER Document Report ---
ED Fall - General Stated Complaint: FALL,HEAD INJURY Time Seen by Provider: 11/11/19 15:29 Notes: 69-year-old man presents to the emergency department with a history of falls x2 from his bed apparently fell twice in the last 24 hours. No loss of consciousness, however he is slow to respond and became concerned and insisted that he come to the hospital for evaluation. Patient did not want to come to the hospital. He complains of pain in his lower back. There are no signs of trauma, no swelling, no bruising and no deformity noted. TRAVEL OUTSIDE OF THE [place] IN LAST 30 DAYS: No - Related data Allergies/Adverse Reactions: codeine Adverse Reaction (Intermediate, Verified 09/09/19 01:01) Past Medical History - Social History Smoking Status: Unknown if Ever Smoked Family History: Reviewed & Not Pertinent, CAD, DM, Hypertension - Past Medical History Cardiac Medical History: Reports: Hx Congestive Heart Failure, Hx Heart Attack - X2 WITH STENTS 2004, 2009, Hx Hypercholesterolemia, Hx Hypertension Denies: Hx Atrial Fibrillation, Hx Coronary Artery Disease, Hx DVT, Hx Pulmonary Embolism Pulmonary Medical History: Reports: Hx COPD, Hx Pneumonia, Hx Respiratory Failure Denies: Hx Asthma, Hx Bronchitis Neurological Medical History: Denies: Hx Cerebrovascular Accident, Hx Seizures Endocrine Medical History: Reports: Hx Diabetes Mellitus Type 2. Denies: Hx Diabetes Mellitus Type 1, Hx Hyperthyroidism, Hx Hypothyroidism Renal/ Medical History: Reports: Hx Benign Prostatic Hyperplasia, Hx End Stage Renal Disease, Hx Peritoneal Dialysis GI Medical History: Reports: Hx Diverticulitis. Denies: Hx Cirrhosis, Hx Hepatitis Musculoskeletal Medical History: Denies Hx Arthritis, Denies Hx Gout Skin Medical History: Denies Hx Eczema, Denies Hx Psoriasis Psychiatric Medical History: Reports: Hx Depression Infectious Medical History: Reports: Hx C-Diff. Denies: Hx Hepatitis Past Surgical History: Reports: Hx Abdominal Surgery - meckels diverticulum, Hx Cardiac Catheterization, Hx Coronary Stent - X2, Other - Small bowel resection; adhesion lysis; peritoneal dialysis access - Immunizations Hx Diphtheria, Pertussis, Tetanus Vaccination: Yes Hx Pneumococcal Vaccination: 03/26/18 Review of Systems - Review of Systems Notes: Constitutional: Negative for fever. HENT: + Head pain, + neck pain Eyes: Negative for visual changes. Cardiovascular: Negative for chest pain. Respiratory: Negative for shortness of breath. Gastrointestinal: Negative for abdominal pain, vomiting or diarrhea. Genitourinary: Negative for dysuria. Back: Tenderness in the lumbar region of the lower back. Musculoskeletal: + back pain. Skin: Negative for rash. Neurological: Negative for headaches, weakness or numbness. 10 point ROS negative except as marked above and in HPI. Physical Exam - Vital signs Vitals: Resp BP Pulse Ox 21 H 149/91 H 94 11/11/19 15:09 11/11/19 15:09 11/11/19 15:09 - Notes Notes: PHYSICAL EXAMINATION: Physical Exam: General: Well-nourished well-developed in no acute distress HEENT: + Head pain, + neck pain. No obvious swelling, no bruising or ecchymoses noted., pupils equal round and reactive to light, MM moist,nares clear, or opharynx clear, airway patent Neck: supple, no adenopathy, no masses. Good range of motion Lungs: clear, no wheezing, no rales no rhonchi CVS: Regular rate and rhythm no murmur gallop or rub Abdomen: Soft, active, nontender, no masses, no hepatosplenomegaly Ext: No edema, clubbing or cyanosis. Back: Tenderness in the mid and lower lumbar region with no deformity, no crepitus no bruising, no swelling Neuro: Alert and responsive, answers questions slowly, however, able to come up with appropriate answers. Moves all 4 extremities on command. Focal neurologic findings. Skin: Intact no open lesions, no rash Course - Re-evaluation Re-evalutation: Differential diagnosis Electrolyte imbalance, infection, trauma, ischemic/vascular, deconditioning 11/11/19 15:40 Patient being seen for falls from the bed onto separate occasions over the past 24 hours. No loss of consciousness questionable slowing of function and complaint of lower back pain as well as head and neck pain. The scan of the head and neck were performed in the emergency department there is no signs of acute intracranial hemorrhage or fracture of the cervical spine. 11/11/19 19:18 CT lumbar spine multilevel degenerative, partial sacralization of L5 the disc space is quite narrow. Mild central canal stenosis at L4-5 secondary to hypertrophic facet and ligamentous changes. No significant disc protrusion multilevel arthropathy and spondylosis most prominent at L2-3 and L3-4 11/11/19 19:24 I have discussed the findings of the x-rays CT scans and labs with the patient and his , the notes that he is unable to walk at this point and he is having multiple falls. He is fallen 5 times in the past 3 days. She states she cannot go home like this and would be willing to do physical therapy/rehab. I have contacted Dr. Evans, nephrology regarding dialysis. Patient was last dialyzed on 11/07/2019 is a dialysis bed available and patient can be admitted to the hospital for further management. 11/11/19 19:41 I discussed the patient with the hospitalist, , he will admit the patient to a medical bed and follow closely for generalized weakness, multiple falls, end-stage renal disease on hemodialysis 11/11/19 19:42 - Vital Signs Vital signs: Temp Pulse Resp BP Pulse Ox 98.3 F 63 12 117/69 97 11/13/19 00:20 11/13/19 00:20 11/13/19 00:20 11/13/19 00:20 11/13/19 00:20 - Laboratory Result Diagrams: 11/12/19 04:48 11/12/19 04:48 Laboratory results interpreted by me: 11/11/19 11/11/19 15:10 15:10 RBC 3.31 L Hgb 10.3 L Hct 31.7 L RDW 16.8 H Baso % (Auto) 2.4 H BUN 63 H Creatinine 7.90 H Est GFR ( Amer) 8 L Est GFR (MDRD) Non-Af 7 L Glucose 210 H - Diagnostic Test Radiology reviewed: Image reviewed, Reports reviewed Radiology results interpreted by me: 11/11/19 19:32 CT lumbar spine without: 2 level degenerative disease, partial sacralization of L5, the disc spaces are quite narrow. Mild central canal stenosis at L4-5 secondary to hypertrophic facet and ligament changes. Spondylolisthesis most prominent at L2-3 and L3-4. CT head noncontrast: No acute intracranial pathology, the calvarium is intact. CT cervical spine: No acute fracture or dislocation noted. - EKG Interpretation by Me Rate: Normal - EKG interpreted by Dr. Raygoza: Normal sinus rhythm, rate 67, QT interval borderline prolonged, normal axis , LVH, borderline T wave abnormalities diffusely. No acute ST or T wave abnormalities, no ischemic findings, there are no significant changes in the EKG compared to EKG, 05/26/2019. Discharge - Discharge Clinical Impression: Multiple falls, Generalized weakness, End stage renal disease on dialysis Condition: Fair Disposition: ADMITTED INPATIENT Admitting Provider: Morena (Hospitalist) Unit Admitted: Medical Floor
--- NOTE | 2019-11-11 15:30 | RADIOLOGY REPORT (SQ) ---
EXAM DESCRIPTION: CT HEAD WITHOUT IMAGES COMPLETED DATE/TIME: 11/11/2019 3:06 pm REASON FOR STUDY: fall COMPARISON: None. TECHNIQUE: Axial images acquired through the brain without intravenous contrast. Images reviewed wi th bone, brain and subdural windows. Additional sagittal and coronal reconstructions were generated. Images stored on PACS. All CT scanners at this facility use dose modulation, iterative reconstruction, and/or weight based d osing when appropriate to reduce radiation dose to as low as reasonably achievable (ALARA). [facility]: Dose Right [facility]: CareDose [facility]: Dose Right [facility]: Teradose 4D [facility]: [employer] RADIATION DOSE: CT Rad equipment meets quality standard of care and radiation dose reduction techniq ues were employed. CTDIvol: 55.2 mGy. DLP: 1084 mGy-cm. LIMITATIONS: None. FINDINGS: There is diffuse age-appropriate cerebral and cerebellar volume loss. The caliber of the ventricles is concordant with the degree of sulcation. There is no acute intracranial hemorrhage, va scular territorial infarct, extra-axial fluid collection, mass effect or midline shift. The chong-whi te matter differentiation is preserved. There is no effacement of the cerebral sulci or basal subara chnoid cisterns. The orbits and globes are intact. The paranasal sinuses are clear. There is no fracture of the calv arium. IMPRESSION: No acute intracranial abnormality. EVIDENCE OF ACUTE STROKE: NO. COMMENT: Quality ID # [id number]: Final reports with documentation of one or more dose reduction techniques (e.g., Automated exposure control, adjustment of the mA and/or kV according to patient size, use of iterative reconstruction technique) TECHNICAL DOCUMENTATION: JOB ID: [id number] 2010 [employer]- All Rights Reserved Reading location - IP/workstation name: [email or web address]-[email or web address]
--- NOTE | 2019-11-11 15:36 | RADIOLOGY REPORT (SQ) ---
EXAM DESCRIPTION: CT CERVICAL SPINE WITHOUT IMAGES COMPLETED DATE/TIME: 11/11/2019 3:06 pm REASON FOR STUDY: fall COMPARISON: None. TECHNIQUE: Axial images acquired through the cervical spine without intravenous contrast. Images re viewed with lung, soft tissue and bone windows. Reconstructed coronal and sagittal MPR images review ed. Images stored on PACS. All CT scanners at this facility use dose modulation, iterative reconstruction, and/or weight based d osing when appropriate to reduce radiation dose to as low as reasonably achievable (ALARA). [facility]: Dose Right [facility]: CareDose [facility]: Dose Right [facility]: Teradose 4D [facility]: [employer] RADIATION DOSE: CT Rad equipment meets quality standard of care and radiation dose reduction techniq ues were employed. CTDIvol: 26.0 mGy. DLP: 559 mGy-cm. LIMITATIONS: None. FINDINGS: ALIGNMENT: There is straightening of the normal lordotic curvature of the cervical spine. There is no craniocervical or atlantoaxial dissociation. MINERALIZATION: Normal. VERTEBRAL BODIES: The cervical vertebral body heights are preserved. There is an in indeterminate mi ld compression deformity of the superior endplate of the T12 vertebral body (associate with less than 10% loss of the vertebral body height). DISCS: The intervertebral disc spaces from C3-C4 to C7-T1 are narrowed ; at C3-C4 and C4-C5 there are posterior disc osteophyte complexes that encroach upon the ventral aspect of the thecal sac. Evalua tion of the spinal canal for stenosis or cord compression is otherwise limited due given the absence of intrathecal contrast. FACETS, LATERAL MASSES, POSTERIOR ELEMENTS: Osteophytic foraminal stenosis bilaterally at C3-C4 and C 4-C5 due to a combination of facet joint arthropathy and uncovertebral hypertrophy. There is no acut e fracture. HARDWARE: None in the spine. VISUALIZED RIBS: No fractures. LUNG APICES AND SOFT TISSUES: The thyroid gland is heterogeneous OTHER: Degeneration of the sternoclavicular joints. IMPRESSION: Age-indeterminate compression deformity of the superior endplate of the T2 vertebral bod y with less than 10% loss of the vertebral body height and no retropulsion. Consider correlation wit h a bone or MRI to exclude an acute compression fracture. TECHNICAL DOCUMENTATION: JOB ID: [id number] Quality ID # [id number]: Final reports with documentation of one or more dose reduction techniques (e.g., Au tomated exposure control, adjustment of the mA and/or kV according to patient size, use of iterative reconstruction technique) 2010 [employer]- All Rights Reserved Reading location - IP/workstation name: [email or web address]
[2019-11-11 15:41] LABS: ABSOLUTE BASOPHILS # (AUTO) 0.2 10^3/uL (0.0-0.2); ABSOLUTE EOSINOPHILS # (AUTO) 0.2 10^3/uL (0.0-0.6); ABSOLUTE LYMPHOCYTES (AUTO) 0.9 10^3/uL (0.5-4.7); ABSOLUTE MONOCYTES (AUTO) 0.6 10^3/uL (0.1-1.4); ABSOLUTE NEUT (AUTO) 4.7 10^3/uL (1.7-8.2); BASOPHILS % (AUTO) 2.4 % (0-2); EOSINOPHILS % (AUTO) 3.2 % (0-6); HEMATOCRIT 31.7 % (37.9-51.0); HEMOGLOBIN 10.3 g/dL (13.5-17.0); LYMPHOCYTES % (AUTO) 13.1 % (13-45); MEAN CORPUSCULAR HEMOGLOBIN 31.1 pg (27.0-33.4); MEAN CORPUSCULAR HGB CONC 32.5 g/dL (32.0-36.0); MEAN CORPUSCULAR VOLUME 96 fl (80-97); MONOCYTES % (AUTO) 9.5 % (3-13); PLATELET COUNT 184 10^3/uL (150-450); RED BLOOD COUNT 3.31 10^6/uL (4.35-5.55); RED CELL DISTRIBUTION WIDTH 16.8 % (11.5-14.0); SEGMENTED NEUTROPHILS % (AUTO) 71.8 % (42-78); TOTAL CELLS COUNTED % (AUTO) 100 %; WHITE BLOOD COUNT 6.5 10^3/uL (4.0-10.5)
[2019-11-11] MEDS ORDERED: MORPHINE SULFATE 10 MG/ML INJ IV ONE (15:41)
[2019-11-11] MEDS ORDERED: ONDANSETRON HCL INJ/PF 4 MG/2 ML SDV IV ONE (15:42)
[2019-11-11 15:44] LABS: ALBUMIN 4.1 g/dL (3.5-5.0); ALKALINE PHOSPHATASE 107 U/L (38-126); ANION GAP 17 (5-19); ASPARTATE AMINO TRANSFERASE 17 U/L (17-59); BILIRUBIN,DIRECT 0.4 mg/dL (0.0-0.4); BILIRUBIN,TOTAL 0.6 mg/dL (0.2-1.3); BLOOD UREA NITROGEN 63 mg/dL (7-20); CARBON DIOXIDE 25 mmol/L (22-30); CHLORIDE 99 mmol/L (98-107); GLUCOSE 210 mg/dL (75-110); POTASSIUM 4.5 mmol/L (3.6-5.0); TOTAL PROTEIN 6.8 g/dL (6.3-8.2)
[2019-11-11 15:54] LABS: ALCOHOL < 10 mg/dL (NONE DETECTED)
--- NOTE | 2019-11-11 16:37 | RADIOLOGY REPORT (SQ) ---
EXAM DESCRIPTION: CT LUMBAR SPINE WITHOUT IMAGES COMPLETED DATE/TIME: 11/11/2019 4:15 pm REASON FOR STUDY: Lumbar back pain/fall COMPARISON: None. TECHNIQUE: Axial images acquired through the lumbar spine without intravenous contrast. Images revi ewed with lung, soft tissue and bone windows. Reconstructed coronal and sagittal MPR images reviewe d. All images stored on PACS. All CT scanners at this facility use dose modulation, iterative reconstruction, and/or weight based d osing when appropriate to reduce radiation dose to as low as reasonably achievable (ALARA). [facility]: Dose Right [facility]: CareDose [facility]: Dose Right [facility]: Teradose 4D [facility]: [employer] RADIATION DOSE: mGy. LIMITATIONS: None. FINDINGS: SEGMENTATION: Cannot exclude partial sacralization of L5. ALIGNMENT: Normal. VERTEBRAL BODIES: No fractures. No dislocation. No acute findings. There are bridging anterior os teophytes at L2 -3 and L3-4 DISCS: Study limited by lack of intrathecal contrast. L1-L2: No significant protrusions. No significant stenosis. L2-L3: No significant protrusions. No significant stenosis. L3-L4: No significant protrusions. No significant stenosis. L4-L5: There is mild central canal stenosis secondary to hypertrophic facet and ligament changes. No foraminal stenoses. L5-S1: Narrowed disc space. No significant protrusions. No significant stenosis. PEDICLES, TRANSVERSE PROCESSES: No fractures. No dislocation. No acute findings. FACETS, POSTERIOR ELEMENTS: Hypertrophic facet changes at several levels. HARDWARE: None in the spine. VISUALIZED RIBS: No fractures. SOFT TISSUES: No significant or acute finding in adjacent soft tissues. OTHER: No other significant finding. IMPRESSION: 1. There may be partial sacralization of L5. The disc space is quite narrow. 2. Mild central canal stenosis at L4-5 secondary to hypertrophic facet and ligament changes. 3. No significant disc protrusions. 4. The set arthropathy at several levels. 5. Spondylosis most prominently at L2-3 and L3-4. TECHNICAL DOCUMENTATION: JOB ID: [id number] Quality ID # [id number]: Final reports with documentation of one or more dose reduction techniques (e.g., Au tomated exposure control, adjustment of the mA and/or kV according to patient size, use of iterative reconstruction technique) 2010 [employer]- All Rights Reserved Reading location - IP/workstation name: [email or web address]
--- NOTE | 2019-11-11 19:38 | EKG REPORT ---
SEVERITY:- BORDERLINE ECG - SINUS RHYTHM RIGHT AXIS DEVIATION BORDERLINE T ABNORMALITIES, DIFFUSE LEADS BORDERLINE PROLONGED QT INTERVAL : Confirmed by: Naya Benjamin 11-Nov-2019 19:37:28
[2019-11-11] MEDS ORDERED: LEVALBUTEROL HCL NEB 0.63 MG/3 ML AMPUL NEB PRN (20:37)
[2019-11-11] MEDS ORDERED: ONDANSETRON HCL INJ/PF 4 MG/2 ML SDV IV PRN (20:37)
[2019-11-11] MEDS ORDERED: MAG HYDROX/AL HYDROX/SIMETH SUSP 30 ML UDCUP PO PRN (20:37)
[2019-11-11] MEDS ORDERED: MAGNESIUM HYDROXIDE SUSP 30 ML UDCUP PO PRN (20:37)
[2019-11-11] MEDS ORDERED: ACETAMINOPHEN 325 MG TABLET PO PRN (20:43)
[2019-11-11] MEDS ORDERED: LORAZEPAM INJ 2 MG/1 ML VIAL IV PRN (20:43)
[2019-11-11] MEDS ORDERED: GUAIFENESIN SYRP 200 MG/10 ML UDC PO PRN (20:43)
[2019-11-11] MEDS ORDERED: MORPHINE SULFATE 10 MG/ML INJ IV PRN ×4 (20:43→21:05)
[2019-11-11] MEDS ORDERED: GLUCAGON,HUMAN RECOMB 1 MG INJ IM PRN (20:44)
[2019-11-11] MEDS ORDERED: DEXTROSE 40% GEL 15 GM TUBE PO PRN ×2 (20:44)
[2019-11-11] MEDS ORDERED: DEXTROSE 50%-WATER 25 GM/50 ML DISP.SYRIN IV PRN ×2 (20:44)
[2019-11-11] MEDS: HEPARIN SOD (PORCINE) 5,000 UNIT/ML 1 ML VIAL SUBCUT SCH (22:55)
--- NOTE | 2019-11-11 23:52 | PDOC H&P ---
History of Present Illness Admission Date/PCP: 11/11/19 19:55 [facility] Patient complains of: Multiple falls History of Present Illness: CELIO WAGNER is a 69 year old male who presented to the emergency room with a 3-day history of frequent falls. He and his admit that has suffered at least 5 falls over the last 3 days with 2 in the last 24 hours. The falls were from the standing/walking position using a walker and have not resulted in any loss of consciousness or obvious acute injury other than worsening of chronic low back discomfort with movements. He and his concur that his falls are associated with generalized weakness over the same 3-day interval. He is noted to be a dialysis patient whose last dialysis was on 11/07/2019. They deny other associated or accompanying signs and symptoms. They deny prior similar episodes. They have not identified any aggravating or ameliorating factors for his falls. In the emergency room he was found to have a negative falls/trauma evaluation but due to his generalized weakness and his need for dialysis he was admitted to the hospital at Dr. Evans's recommendation for further evaluation and treatment. Past Medical History Cardiac Medical History: Reports: Congestive Heart Failure, Myocardial Infarction - X2 WITH STENTS 2004, 2009, Hyperlipidema, Hypertension Denies: Atrial Fibrillation, Coronary Artery Disease, DVT, Pulmonary Embolism Pulmonary Medical History: Reports: Chronic Obstructive Pulmonary Disease (COPD), Pneumonia, Respiratory Failure Denies: Asthma, Bronchitis EENT Medical History: Denies: Cataracts, Ears - Hearing aids Neurological Medical History: Denies: Hemorrhagic CVA, Ischemic CVA, Seizures Endocrine Medical History: Reports: Diabetes Mellitus Type 2 Denies: Diabetes Mellitus Type 1, Hyperthyroidism, Hypothyroidism Renal/ Medical History: Reports: End Stage Renal Disease Denies: Nephrolithiasis Malignancy Medical History: Reports: None GI Medical History: Reports: Diverticulitis Denies: Cirrhosis, Hepatitis Musculoskeltal Medical History: Denies: Arthritis, Gout Skin Medical History: Denies: Eczema, Psoriasis Psychiatric Medical History: Reports: Depression Denies: Alcohol Dependency, Substance Abuse, Tobacco Dependency Traumatic Medical History: Reports: None Hematology: Reports: Anemia Denies: Bleeding Tendencies Infectious Medical History: Reports: Clostridium Difficile Past Surgical History Past Surgical History: Reports: Cardiac Catheterization, Coronary Stent - X2, Other - Small bowel resection; adhesion lysis; peritoneal dialysis access Social History Information Source: Patient Lives with: Spouse/Significant other Smoking Status: Former Smoker Electronic Cigarette use?: No Frequency of Alcohol Use: None Hx Recreational Drug Use: No Drugs: None Hx Prescription Drug Abuse: No - Advance Directive Resuscitation Status: Full Code Surrogate healthcare decision maker:: Amparo Lanza Family History Family History: CAD, DM, Hypertension Parental Family History Reviewed: Yes Children Family History Reviewed: No Sibling(s) Family History Reviewed.: Yes Medication/Allergy Home Medications: Aspirin [Aspirin 81 mg Chewable Tablet] 81 mg PO DAILY 10/09/18 Atorvastatin Calcium [Lipitor 80 mg Tablet] 80 mg PO QHS 10/09/18 Docusate Sodium [Colace 100 mg Capsule] 100 mg PO BID 10/09/18 Escitalopram Oxalate [Lexapro] 10 mg PO DAILY 10/09/18 Insulin Aspart [Novolog Insulin (Aspart) 100 unit/mL] 1 unit SUBCUT .SLD SCALE 10/09/18 Insulin Glargine,Hum.rec.anlog [Lantus Insulin 100 Unit/1 ml 10 ml] 80 unit S UBCUT QHS 10/09/18 Ipratropium/Albuterol Sulfate [Combivent Respimat 4 gm Mdi] 1 puff IH QIDP PRN 0 10/09/18 Ipratropium/Albuterol Sulfate [Duoneb 3 ml Ampul] 3 ml NEB RTQIDP PRN 10/09/18 Isosorbide Mononitrate [Imdur 30 mg Tablet.er] 30 mg PO DAILY 10/09/18 Omeprazole 20 mg PO Q6AM 10/09/18 Nitroglycerin 0.4 mg SL PRN PRN #20 tab.subl 01/20/19 Lactulose [Kristalose 20 gm Packet] 20 gm PO DAILY 03/03/19 Multivitamin [Multivitamins] 1 cap PO DAILY 05/26/19 Terazosin HCl 2 mg PO QHS 05/26/19 Oxycodone HCl/Acetaminophen [Percocet 5-325 mg Tablet] 1 tab PO ASDIR PRN #15 tab 05/27/19 Oxycodone HCl/Acetaminophen [Percocet 5-325 mg Tablet] 1 tab PO ASDIR PRN #15 tab 05/27/19 Oxycodone HCl/Acetaminophen [Percocet 5-325 mg Tablet] 1 tab PO ASDIR PRN #15 tab 05/27/19 Fluconazole [Diflucan] 100 mg PO DAILY #6 tablet 05/28/19 Ciprofloxacin HCl [Cipro] 500 mg PO ASDIR PRN #3 tablet 08/20/19 Nitrofurantoin Monohyd/M-Cryst [Macrobid 100 mg Capsule] 100 mg PO BID #14 cap 09/09/19 Allergies/Adverse Reactions: codeine Adverse Reaction (Intermediate, Verified 09/09/19 01:01) Review of Systems Constitutional: PRESENT: as per HPI, weakness. ABSENT: chills, fever(s) Eyes: ABSENT: visual disturbances, other - Eye pain Ears: ABSENT: hearing changes, other - Ear pain Nose, Mouth, and Throat: ABSENT: headache(s), sore throat Cardiovascular: ABSENT: chest pain, palpitations Respiratory: ABSENT: cough, dyspnea Gastrointestinal: ABSENT: abdominal pain, constipation, diarrhea, nausea, vomiting Genitourinary: ABSENT: dysuria, hematuria Musculoskeletal: PRESENT: as per HPI, back pain, muscle weakness - Generalized. ABSENT: joint swelling Integumentary: ABSENT: pruritus, rash Neurological: ABSENT: confusion, convulsions, focal weakness, memory loss, syncope Psychiatric: ABSENT: anxiety, depression Endocrine: ABSENT: cold intolerance, heat intolerance Hematologic/Lymphatic: ABSENT: easy bleeding, easy bruising Allergic/Immunologic: ABSENT: seasonal rhinorrhea Physical Exam Vital Signs: Temp Pulse Resp BP Pulse Ox 98.1 F 66 15 129/52 H 95 11/11/19 15:24 11/11/19 17:01 11/11/19 17:01 11/11/19 17:01 11/11/19 17:01 Intake & Output 11/09/19 11/10/19 11/11/19 23:59 23:59 23:59 Weight 87 kg General appearance: PRESENT: no acute distress, cooperative Head exam: PRESENT: atraumatic, normocephalic Eye exam: PRESENT: conjunctiva pink. ABSENT: conjunctival injection, scleral icterus Ear exam: PRESENT: normal external ear exam. ABSENT: bleeding, drainage Mouth exam: PRESENT: dry mucosa, neck supple Neck exam: ABSENT: thyromegaly, tracheal deviation Respiratory exam: PRESENT: clear to auscultation yair, symmetrical, unlabored Cardiovascular exam: PRESENT: RRR. ABSENT: clicks, gallop, rubs Pulses: PRESENT: normal radial pulses, normal dorsalis pedis pul Vascular exam: PRESENT: normal capillary refill, other - Dialysis fistula noted. ABSENT: pallor GI/Abdominal exam: PRESENT: normal bowel sounds, soft Rectal exam: PRESENT: deferred Extremities exam: PRESENT: pedal edema - Mild bipedal edema. ABSENT: joint swelling Musculoskeletal exam: ABSENT: deformity, dislocation Neurological exam: PRESENT: alert, oriented to person, oriented to place, oriented to time, oriented to situation, CN II-XII grossly intact. ABSENT: motor sensory deficit Psychiatric exam: PRESENT: appropriate affect, normal mood Skin exam: PRESENT: dry, intact, warm. ABSENT: jaundice, urticaria Results Laboratory Results: 11/11/19 15:10 11/11/19 15:10 11/11/19 11/11/19 15:10 15:10 WBC 6.5 RBC 3.31 L Hgb 10.3 L Hct 31.7 L MCV 96 MCH 31.1 MCHC 32.5 RDW 16.8 H Plt Count 184 Seg Neutrophils % 71.8 Sodium 140.5 Potassium 4.5 Chloride 99 Carbon Dioxide 25 Anion Gap 17 BUN 63 H Creatinine 7.90 H Est GFR ( Amer) 8 L Glucose 210 H Calcium 9.0 Magnesium 2.3 Total Bilirubin 0.6 AST 17 Alkaline Phosphatase 107 Total Protein 6.8 Albumin 4.1 Impressions: Cervical Spine CT 11/11/19 00:00 IMPRESSION: Age-indeterminate compression deformity of the superior endplate of the T2 vertebral body with less than 10% loss of the vertebral body height and no retropulsion. Consider correlation with a bone or MRI to exclude an acute compression fracture. Head CT 11/11/19 00:00 IMPRESSION: No acute intracranial abnormality. EVIDENCE OF ACUTE STROKE: NO. Lumbar Spine CT 11/11/19 15:42 IMPRESSION: 1. There may be partial sacralization of L5. The disc space is quite narrow. 2. Mild central canal stenosis at L4-5 secondary to hypertrophic facet and ligament changes. 3. No significant disc protrusions. 4. The set arthropathy at several levels. 5. Spondylosis most prominently at L2-3 and L3-4. Assessment and Plan - Diagnosis (1) Generalized weakness Is this a current diagnosis for this admission?: Yes (2) Multiple falls Is this a current diagnosis for this admission?: Yes (3) End stage renal disease on dialysis Is this a current diagnosis for this admission?: Yes (4) Anemia in chronic kidney disease Qualifiers: Chronic kidney disease stage: on chronic dialysis Qualified Code(s): N18.6 - End stage renal disease; D63.1 - Anemia in chronic kidney disease; Z99.2 - Dependence on renal dialysis Is this a current diagnosis for this admission?: Yes (5) HTN (hypertension) Qualifiers: Hypertension type: essential hypertension Qualified Code(s): I10 - Essential (primary) hypertension Is this a current diagnosis for this admission?: Yes (6) Coronary artery disease Qualifiers: Coronary Disease-Associated Artery/Lesion type: [place] artery [place] vs. transplanted heart: [place] heart Associated angina: without angina Qualified Code(s): I25.10 - Atherosclerotic heart disease of [place] coronary artery without angina pectoris Is this a current diagnosis for this admission?: Yes (7) Diabetes mellitus type 2 in nonobese Is this a current diagnosis for this admission?: Yes (8) Hyperlipidemia Qualifiers: Hyperlipidemia type: unspecified Qualified Code(s): E78.5 - Hyperlipidemia, unspecified Is this a current diagnosis for this admission?: Yes - Plan Summary Summary: Patient will be admitted to the medical floor where he received routine supportive and symptomatic cares. Nephrology consultation will be obtained with Dr. Ba Evans for evaluation and treatment with end-stage renal disease and need for dialysis. pharmacy services representative consultation will be obtained for probable [facility] facility placement post hospitalization. Physical therapy occupational therapy and speech therapy consultations will be obtained. Patient will be monitored closely with CBCs, metabolic profiles and additional laboratory and/or radiographic evaluations as needed. He will receive morphine sulfate 2 to 4 mg IV every 2 hours as needed for pain and Ativan 1 mg IV every 4 hours as needed for anxiety or restlessness. He will be on a dialysis restricted cardiac and diabetic diet. Before meals and at bedtime Accu-Cheks will be performed with sliding scale insulin for hyperglycemia and a hypoglycemic protocol in place. Neuro checks will be performed every 4 hours. - Time Time Spent with patient: 15-24 minutes Medications reviewed and adjusted accordingly: Yes Anticipated Discharge Disposition: [facility] Facility Anticipated Discharge Timeframe: when bed available - Inpatient Certification Based on my medical assessment, after consideration of the patient's comorbidities, presenting symptoms, or acuity I expect that the services needed warrant INPATIENT care.: Yes I certify that my determination is in accordance with my understanding of Medicare's requirements for reasonable and necessary INPATIENT services [42 CFR 412.3e].: Yes Medical Necessity: Significant Comorbidiites Make Outpatient Treatment Too Risky, Need Close Monitoring Due to Risk of Patient Decompensation, Need for Neurological Checks, Risk of Complication if Not Cared For in Hospital
[2019-11-12 05:14] LABS: HEMATOCRIT 33.4 % (37.9-51.0); HEMOGLOBIN 10.8 g/dL (13.5-17.0); MEAN CORPUSCULAR HGB CONC 32.4 g/dL (32.0-36.0); MEAN CORPUSCULAR VOLUME 96 fl (80-97); PLATELET COUNT 182 10^3/uL (150-450); RED BLOOD COUNT 3.49 10^6/uL (4.35-5.55); RED CELL DISTRIBUTION WIDTH 16.7 % (11.5-14.0); WHITE BLOOD COUNT 6.1 10^3/uL (4.0-10.5)
[2019-11-12 05:33] LABS: ANION GAP 18 (5-19); BLOOD UREA NITROGEN 66 mg/dL (7-20); CALCIUM 8.9 mg/dL (8.4-10.2); CARBON DIOXIDE 21 mmol/L (22-30); CHLORIDE 101 mmol/L (98-107); CHOLESTEROL 124.32 mg/dL (0-200); GLUCOSE 148 mg/dL (75-110); POTASSIUM 4.4 mmol/L (3.6-5.0); TRIGLYCERIDES 123 mg/dL (<150)
[2019-11-12 05:44] LABS: DIRECT LDL 60 mg/dL (<100)
[2019-11-12] MEDS: PANTOPRAZOLE SODIUM 40 MG TABLET.DR PO SCH (05:50)
[2019-11-12] MEDS: HEPARIN SOD (PORCINE) 5,000 UNIT/ML 1 ML VIAL SUBCUT SCH ×3 (05:51→22:49)
--- NOTE | 2019-11-12 10:12 | PDOC CONSULTATION ---
Consultation Consult Date: 11/12/19 Provider Consulted: Eleno GANDHI Consult reason:: ESRD for HD History of Present Illness Admission Date/PCP: 11/11/19 19:55 [facility] History of Present Illness: CELIO WAGNER is a 69 year old male with a history of ESRD in the background of diabetes mellitus, hypertension, BPH, CAD, previous history of UTI/pyelonephritis was admitted with history of frequent falls and progressive generalized weakness over the last 2 to 3 days duration. His last dialysis was apparently on the which was rather uneventful. Patient is quite confused and delirious and unable to contribute much of the history when I saw him today on dialysis. He is quite restless but is able to calm down when you talk to him. He denies any history of chest pains abdominal pains. He is unable to give me a urinary history but I see that he is on Macrobid and ciprofloxacin and such in his home medications. Labs and medications were reviewed. Dialysis orders were reviewed with the treating dialysis nurse. Past Medical History Cardiac Medical History: Reports: CHF-Diastolic, Hyperlipidemia, Hypertension- primary, Myocardial Infarction - X2 WITH STENTS 2004, 2009, Pulmonary Hypertension Denies: Atrial Fibrillation, Coronary Artery Disease, DVT, Pulmonary Embolism Pulmonary Medical History: Reports: Chronic Obstructive Pulmonary Disease (COPD), Pneumonia, Respiratory Failure Denies: Asthma, Bronchitis EENT Medical History: Denies: Cataracts, Ears - Hearing aids Neurological Medical History: Denies: Hemorrhagic CVA, Ischemic CVA, Seizures Endocrine Medical History: Reports: Diabetes Mellitus Type 2 Denies: Diabetes Mellitus Type 1, Hyperthyroidism, Hypothyroidism Complications of Diabetes: Reports: None, Autonomic Neuropathy, Diabetic Foot Ulcer, Nephropathy, Retinopathy Renal/ Medical History: Reports: Benign Prostatic Hyperplasia, End Stage Renal Disease, Hypocalcemia, Hyperphosphatemia, Secondary Hyperparathyroidism Denies: Nephrolithiasis Malignancy Medical History: Reports: None GI Medical History: Reports: Diverticulitis Denies: Cirrhosis, Hepatitis Musculoskeltal Medical History: Denies: Arthritis, Gout Skin Medical History: Denies: Eczema, Psoriasis Psychiatric Medical History: Reports: Depression Denies: Alcohol Dependency, Substance Abuse, Tobacco Dependency Traumatic Medical History: Reports: None Infectious Medical History: Reports: Clostridium Difficile Hematology Medical History: Reports Anemia of Chronic Kidney Disease Past Surgical History Past Surgical History: Reports: Cardiac Catheterization, Coronary Stent - X2, Dialysis Access Surgery PD, Other - Small bowel resection; adhesion lysis; peritoneal dialysis access Social History Lives with: Spouse/Significant other Smoking Status: Former Smoker Electronic Cigarette use?: No Frequency of Alcohol Use: None Hx Recreational Drug Use: No Drugs: None Hx Prescription Drug Abuse: No - Advance Directive Resuscitation Status: Full Code Family History Parental Family History Reviewed: No - Unable to be obtained from the patient who is delirious. Children Family History Reviewed: No Sibling(s) Family History Reviewed.: No Medication/Allergy Home Medications: Aspirin [Aspirin 81 mg Chewable Tablet] 81 mg PO DAILY 10/09/18 Atorvastatin Calcium [Lipitor 80 mg Tablet] 80 mg PO QHS 10/09/18 Docusate Sodium [Colace 100 mg Capsule] 100 mg PO BID 10/09/18 Escitalopram Oxalate [Lexapro] 10 mg PO DAILY 10/09/18 Insulin Aspart [Novolog Insulin (Aspart) 100 unit/mL] 1 unit SUBCUT .SLD SCALE 10/09/18 Insulin Glargine,Hum.rec.anlog [Lantus Insulin 100 Unit/1 ml 10 ml] 80 unit SUBCUT QHS 10/09/18 Ipratropium/Albuterol Sulfate [Combivent Respimat 4 gm Mdi] 1 puff IH QIDP PRN 10/09/18 Ipratropium/Albuterol Sulfate [Duoneb 3 ml Ampul] 3 ml NEB RTQIDP PRN 10/09/18 Isosorbide Mononitrate [Imdur 30 mg Tablet.er] 30 mg PO DAILY 10/09/18 Omeprazole 20 mg PO Q6AM 10/09/18 Nitroglycerin 0.4 mg SL PRN PRN #20 tab.subl 01/20/19 Lactulose [Kristalose 20 gm Packet] 20 gm PO DAILY 03/03/19 Multivitamin [Multivitamins] 1 cap PO DAILY 05/26/19 Terazosin HCl 2 mg PO QHS 05/26/19 Oxycodone HCl/Acetaminophen [Percocet 5-325 mg Tablet] 1 tab PO ASDIR PRN #15 tab 05/27/19 Oxycodone HCl/Acetaminophen [Percocet 5-325 mg Tablet] 1 tab PO ASDIR PRN #15 tab 05/27/19 Oxycodone HCl/Acetaminophen [Percocet 5-325 mg Tablet] 1 tab PO ASDIR PRN #15 tab 05/27/19 Fluconazole [Diflucan] 100 mg PO DAILY #6 tablet 05/28/19 Ciprofloxacin HCl [Cipro] 500 mg PO ASDIR PRN #3 tablet 08/20/19 Nitrofurantoin Monohyd/M-Cryst [Macrobid 100 mg Capsule] 100 mg PO BID #14 cap 09/09/19 Allergies/Adverse Reactions: codeine Adverse Reaction (Intermediate, Verified 09/09/19 01:01) Review of Systems ROS unobtainable: Due to mental status Cardiovascular: ABSENT: chest pain, dyspnea on exertion Gastrointestinal: ABSENT: abdominal pain Neurological: PRESENT: abnormal speech, confusion, frequent falls Physical Exam Vital Signs: Temp Pulse Resp BP Pulse Ox 97.4 F 56 L 14 129/57 H 99 11/11/19 22:32 11/11/19 22:32 11/11/19 22:32 11/11/19 22:32 11/11/19 22:32 Intake & Output 11/11/19 11/12/19 11/13/19 06:59 06:59 06:59 Output Total 500 Balance -500 Weight 87 kg General appearance: PRESENT: no acute distress Exam: Patient is confused and disoriented and unable to give any meaningful history. Eye exam: PRESENT: EOMI, PERRLA Ear exam: PRESENT: normal external ear exam Mouth exam: PRESENT: neck supple. ABSENT: moist Neck exam: ABSENT: lymphadenopathy, meningismus, tenderness, thyromegaly, tracheal deviation Respiratory exam: PRESENT: clear to auscultation yair. ABSENT: crackles Cardiovascular exam: PRESENT: +S1, +S2 GI/Abdominal exam: PRESENT: normal bowel sounds, soft. ABSENT: organomegaly, tenderness Extremities exam: ABSENT: pedal edema Neurological exam: PRESENT: altered Psychiatric exam: PRESENT: agitated Skin exam: PRESENT: dry. ABSENT: erythema, mottled, rash Results Laboratory Results: 11/12/19 04:48 11/12/19 04:48 11/11/19 11/11/19 11/12/19 15:10 15:10 04:48 WBC 6.5 RBC 3.31 L Hgb 10.3 L Hct 31.7 L MCV 96 MCH 31.1 MCHC 32.5 RDW 16.8 H Plt Count 184 Seg Neutrophils % 71.8 Sodium 140.5 139.9 Potassium 4.5 4.4 Chloride 99 101 Carbon Dioxide 25 21 L Anion Gap 17 18 BUN 63 H 66 H Creatinine 7.90 H 8.17 H Est GFR ( Amer) 8 L 8 L Glucose 210 H 148 H Calcium 9.0 8.9 Magnesium 2.3 2.4 H Total Bilirubin 0.6 AST 17 Alkaline Phosphatase 107 Total Protein 6.8 Albumin 4.1 Triglycerides 123 Cholesterol 124.32 LDL Cholesterol Direct 60 VLDL Cholesterol 25.0 HDL Cholesterol 41 11/12/19 04:48 WBC 6.1 RBC 3.49 L Hgb 10.8 L Hct 33.4 L MCV 96 MCH 31.0 MCHC 32.4 RDW 16.7 H Plt Count 182 Seg Neutrophils % Sodium Potassium Chloride Carbon Dioxide Anion Gap BUN Creatinine Est GFR ( Amer) Glucose Calcium Magnesium Total Bilirubin AST Alkaline Phosphatase Total Protein Albumin Triglycerides Cholesterol LDL Cholesterol Direct VLDL Cholesterol HDL Cholesterol Impressions: Cervical Spine CT 11/11/19 00:00 IMPRESSION: Age-indeterminate compression deformity of the superior endplate of the T2 vertebral body with less than 10% loss of the vertebral body height and no retropulsion. Consider correlation with a bone or MRI to exclude an acute compression fracture. Head CT 11/11/19 00:00 IMPRESSION: No acute intracranial abnormality. EVIDENCE OF ACUTE STROKE: NO. Lumbar Spine CT 11/11/19 15:42 IMPRESSION: 1. There may be partial sacralization of L5. The disc space is quite narrow. 2. Mild central canal stenosis at L4-5 secondary to hypertrophic facet and ligament changes. 3. No significant disc protrusions. 4. The set arthropathy at several levels. 5. Spondylosis most prominently at L2-3 and L3-4. Assessment & Plan - Diagnosis (1) Acute delirium Plan: Patient is confused and disoriented and delirious. Currently no obvious etiology is identifiable. He has no leukocytosis or left shift. No urine analysis was done. CT scan did not show any acute ischemic events. Does not show any obvious symptoms or signs to indicate he has an infection going on. However I note that he is on urinary antibiotics at home in the form of Macrobid. I am going to request for MAXIME Moraes catheter/straight catheter to check his urine analysis and and sent for cultures. (2) End stage renal disease on dialysis Is this a current diagnosis for this admission?: Yes Plan: Patient currently being seen while undergoing dialysis. He is confused and disoriented and sometimes he is restless. However he sometimes replies when you talk to him. He is able to recognize me through the haze. Vital signs are stable. Will remove at the most 500 cc but I am going to start him on normal saline given the fact that patient is quite dehydrated. Discussed and reviewed dialysis orders with the treating dialysis nurse. (3) Diabetes mellitus type 2 in nonobese Is this a current diagnosis for this admission?: Yes Plan: Avoid hypoglycemia because I believe his intake is going to be poor. (4) Generalized weakness Is this a current diagnosis for this admission?: Yes Plan: Currently he is delirious of unknown etiology. I believe his intake must have been poor over the last 2 to 3 days also adding to his generalized weakness. Continue to evaluate. (5) Multiple falls Is this a current diagnosis for this admission?: Yes Plan: As per history. Vital signs are currently stable. Monitor.
[2019-11-12] MEDS: DOCUSATE SODIUM 100 MG CAPSULE PO SCH ×2 (10:50→18:17)
[2019-11-12] MEDS ORDERED: LIDOCAINE 2% JELLY 5 ML TUBE TOP PRN (15:45)
--- NOTE | 2019-11-12 15:51 | PDOC PROGRESS REPORT ---
Subjective Progress Note for:: 11/12/19 Subjective:: Biggest complaint is severe pain at the external urethral meatus. Reason For Visit: GENERALIZED WEAKNESS, ESRD ON DIALYSIS Physical Exam Vital Signs: Temp Pulse Resp BP Pulse Ox 98.6 F 72 16 130/76 H 98 11/12/19 10:56 11/12/19 10:56 11/12/19 10:56 11/12/19 10:56 11/12/19 10:56 Intake & Output 11/11/19 11/12/19 11/13/19 06:59 06:59 06:59 Output Total 500 Balance -500 Weight 87 kg General appearance: PRESENT: cooperative, severe distress, well-developed Eye exam: PRESENT: conjunctiva pale. ABSENT: scleral icterus Ear exam: PRESENT: normal external ear exam. ABSENT: bleeding, drainage Mouth exam: PRESENT: moist, tongue midline Teeth exam: PRESENT: poor dentation Respiratory exam: PRESENT: clear to auscultation yair, symmetrical, unlabored. ABSENT: accessory muscle use, prolonged expiratory phas, rales, rhonchi, tachypnea, wheezes Cardiovascular exam: PRESENT: RRR, +S1, +S2. ABSENT: bradycardia, diastolic murmur, irregular rhythm, systolic murmur, tachycardia GI/Abdominal exam: PRESENT: normal bowel sounds, soft. ABSENT: distended, tenderness Rectal exam: PRESENT: deferred Gentrourinary exam: PRESENT: indwelling catheter - Inserted and then had to be changed. Severe external urethral meatus pain Extremities exam: ABSENT: pedal edema Musculoskeletal exam: PRESENT: normal inspection, other - We attempted to sit the patient outside of the bed and he experienced significant pain in his back and external urethral meatus Neurological exam: PRESENT: alert, awake, oriented to person, oriented to place, oriented to situation, CN II-XII grossly intact. ABSENT: altered Psychiatric exam: PRESENT: agitated, appropriate affect - Affect reflects his significant pain. ABSENT: anxious Focused psych exam: ABSENT: delusional, paranoid, restlessness Skin exam: PRESENT: dry, warm Results Laboratory Results: 11/12/19 04:48 11/12/19 04:48 11/11/19 11/12/19 11/12/19 15:10 04:48 04:48 WBC 6.1 RBC 3.49 L Hgb 10.8 L Hct 33.4 L MCV 96 MCH 31.0 MCHC 32.4 RDW 16.7 H Plt Count 182 Sodium 140.5 139.9 Potassium 4.5 4.4 Chloride 99 101 Carbon Dioxide 25 21 L Anion Gap 17 18 BUN 63 H 66 H Creatinine 7.90 H 8.17 H Est GFR ( Amer) 8 L 8 L Glucose 210 H 148 H Calcium 9.0 8.9 Magnesium 2.3 2.4 H Total Bilirubin 0.6 AST 17 Alkaline Phosphatase 107 Total Protein 6.8 Albumin 4.1 Triglycerides 123 Cholesterol 124.32 LDL Cholesterol Direct 60 VLDL Cholesterol 25.0 HDL Cholesterol 41 Impressions: Cervical Spine CT 11/11/19 00:00 IMPRESSION: Age-indeterminate compression deformity of the superior endplate of the T2 vertebral body with less than 10% loss of the vertebral body height and no retropulsion. Consider correlation with a bone or MRI to exclude an acute co mpression fracture. Head CT 11/11/19 00:00 IMPRESSION: No acute intracranial abnormality. EVIDENCE OF ACUTE STROKE: NO. Lumbar Spine CT 11/11/19 15:42 IMPRESSION: 1. There may be partial sacralization of L5. The disc space is quite narrow. 2. Mild central canal stenosis at L4-5 secondary to hypertrophic facet and ligament changes. 3. No significant disc protrusions. 4. The set arthropathy at several levels. 5. Spondylosis most prominently at L2-3 and L3-4. Assessment and Plan - Diagnosis (1) Generalized weakness Is this a current diagnosis for this admission?: Yes Plan: Unclear as to the etiology of his generalized weakness. No evidence of infection at this point. Will monitor closely. Evaluation by physical therapy. (2) Multiple falls Is this a current diagnosis for this admission?: Yes Plan: Specific etiology of his falls is unclear at this time. We will have physical therapy assess the patient. CT scan of the head was unremarkable. No evidence of stroke. (3) End stage renal disease on dialysis Is this a current diagnosis for this admission?: Yes Plan: The patient missed his dialysis appointment on Sunday. He was dialyzed earlier today. Only 500 mL of fluid was removed. He is on a Sunday, Sunday and Sunday dialysis schedule. (4) Pain in urethral meatus Is this a current diagnosis for this admission?: Yes Plan: The patient reports excruciating pain at the urethral meatus. No blood noted. With any movement you can clearly see that he is in severe pain. Because it is at the urethral meatus I will institute a trial of lidocaine gel. A Moraes catheter was placed initially at the request of nephrology. The patient's stated that he usually has a smaller catheter and the catheter was downsized. The pain could be related to the trauma of initial catheterization and then a second catheterization. Will monitor. (5) Anemia in chronic kidney disease Qualifiers: Chronic kidney disease stage: on chronic dialysis Qualified Code(s): N18.6 - End stage renal disease; D63.1 - Anemia in chronic kidney disease; Z99.2 - Dependence on renal dialysis Is this a current diagnosis for this admission?: Yes Plan: We will monitor hemoglobin and hematocrit. (6) Hyperglycemia due to type 2 diabetes mellitus Qualifiers: Diabetes mellitus usp insulin use: with usp use Qualified Code (s): E11.65 - Type 2 diabetes mellitus with hyperglycemia; Z79.4 - intermediate (current) use of insulin Is this a current diagnosis for this admission?: Yes Plan: We will utilize Accu-Cheks and sliding scale coverage. Will resume Lantus based on sliding scale requirements. Controlled carbohydrate diet. (7) HTN (hypertension) Qualifiers: Hypertension type: essential hypertension Qualified Code(s): I10 - Essential (primary) hypertension Is this a current diagnosis for this admission?: Yes Plan: Continue current antihypertensive regimen and monitor serial blood pressures. (8) Coronary artery disease Qualifiers: Coronary Disease-Associated Artery/Lesion type: [place] artery [place] vs. transplanted heart: [place] heart Associated angina: without angina Qualified Code(s): I25.10 - Atherosclerotic heart disease of [place] coronary artery without angina pectoris Is this a current diagnosis for this admission?: Yes Plan: No evidence of acute coronary syndrome. We will continue 81 mg aspirin, atorvastatin, carvedilol and Imdur. Monitor blood pressure. Cardiac diet. (9) Chronic diastolic heart failure Is this a current diagnosis for this admission?: Yes Plan: Echocardiogram in 2019 showed grade 1/4 diastolic failure with normal ejection fraction. Fluid management is mostly by hemodialysis. Monitor for signs and symptoms of heart failure. (10) Hypercholesterolemia Is this a current diagnosis for this admission?: Yes Plan: Continue maximum strength Lipitor (11) Degenerative disc disease, cervical Is this a current diagnosis for this admission?: Yes Plan: Noted on CT scan. No neuropathy noted. Supportive care and pain management. (12) Degenerative disc disease, lumbar Is this a current diagnosis for this admission?: Yes Plan: Minimal spinal stenosis but multilevel disc disease. No evidence of neuropathy. Supportive care and pain management. (13) Osteoarthritis of spine at multiple levels Is this a current diagnosis for this admission?: Yes Plan: Noted on CT scans of cervical and lumbar spine. Supportive care and pain management. (14) Gastroesophageal reflux disease Qualifiers: Esophagitis presence: without esophagitis Qualified Code(s): K21.9 - Gastro-esophageal reflux disease without esophagitis Is this a current diagnosis for this admission?: Yes Plan: Continue famotidine (15) Depression Qualifiers: Depression Type: unspecified Qualified Code(s): F32.9 - Major depressive disorder, single episode, unspecified Is this a current diagnosis for this admission?: Yes Plan: History of depression with anxiety. Continue Lexapro and lorazepam as needed (16) Prostatic hyperplasia Is this a current diagnosis for this admission?: Yes Plan: Continue finasteride and terazosin. Moraes catheter was placed for exact intake and output measurements. No urine output as yet today. - Plan Summary Summary: Patient will be admitted to the medical floor where he received routine supporti ve and symptomatic cares. Nephrology consultation will be obtained with Dr. Ba Evans for evaluation and treatment with end-stage renal disease and need for dialysis. enterprise services manager consultation will be obtained for probable retirement facility placement post hospitalization. Physical therapy occupational therapy and speech therapy consultations will be obtained. Patient will be monitored closely with CBCs, metabolic profiles and additional laboratory and/or radiographic evaluations as needed. He will receive morphine sulfate 2 to 4 mg IV every 2 hours as needed for pain and Ativan 1 mg IV every 4 hours as needed for anxiety or restlessness. He will be on a dialysis restricte d cardiac and diabetic diet. Before meals and at bedtime Accu-Cheks will be performed with sliding scale insulin for hyperglycemia and a hypoglycemic protocol in place. Neuro checks will be performed every 4 hours. - Time Time Spent with patient: 15-24 minutes Medications reviewed and adjusted accordingly: Yes Anticipated Discharge Disposition: Home with Home Health Anticipated Discharge Timeframe: within 72 hours
[2019-11-12] MEDS: NORMAL SALINE 1000 ML 1,000 ML IV PRN (19:56)
[2019-11-12] MEDS: FAMOTIDINE 20 MG TABLET PO SCH (22:50)
[2019-11-12] MEDS: CARVEDILOL 12.5 MG TABLET PO SCH (22:50)
[2019-11-12] MEDS: MELATONIN 5 MG TABLET PO PRN (22:50)
[2019-11-12] MEDS: ATORVASTATIN CALCIUM 80 MG TABLET PO SCH (22:50)
[2019-11-13] MEDS: HEPARIN SOD (PORCINE) 5,000 UNIT/ML 1 ML VIAL SUBCUT SCH ×3 (06:13→22:42)
[2019-11-13] MEDS: PANTOPRAZOLE SODIUM 40 MG TABLET.DR PO SCH (06:13)
[2019-11-13] MEDS: NORMAL SALINE 1000 ML 1,000 ML IV PRN (06:48)
[2019-11-13] MEDS: DOCUSATE SODIUM 100 MG CAPSULE PO SCH ×2 (09:33→17:13)
[2019-11-13] MEDS: VITAMIN B COMPLEX TABLET PO SCH (09:33)
[2019-11-13] MEDS: ISOSORBIDE MONONITRATE 30 MG TAB.ER.24H PO SCH (09:33)
[2019-11-13] MEDS: ASPIRIN 81 MG TABLET, CHEWABLE PO SCH (09:33)
[2019-11-13] MEDS: CARVEDILOL 12.5 MG TABLET PO SCH ×2 (09:33→22:43)
[2019-11-13] MEDS: DOXAZOSIN MESYLATE 2 MG TABLET PO SCH (09:34)
[2019-11-13] MEDS: FINASTERIDE 5 MG TABLET PO SCH (09:34)
[2019-11-13] MEDS ORDERED: (PENDING PHARMACY ID) (B Complex W-C No.20/Folic Acid [Renal Caps Softgel] 1 MG) PO SCH (10:00)
[2019-11-13] MEDS ORDERED: (PENDING PHARMACY ID) (Escitalopram Oxalate [Lexapro] 30 MG) PO SCH (10:00)
[2019-11-13] MEDS ORDERED: ESCITALOPRAM OXALATE 10 MG TABLET PO SCH (10:00)
[2019-11-13] MEDS ORDERED: (PENDING PHARMACY ID) (Terazosin Hcl [Terazosin Hcl] 2 MG) PO SCH (10:00)
--- NOTE | 2019-11-13 13:21 | PDOC PROGRESS REPORT ---
Subjective Progress Note for:: 11/13/19 Subjective:: External urethral meatus is much less painful. Patient was evaluated by physical therapy. He reports longstanding chronic back pain. Unfortunately he cannot use nonsteroidal anti-inflammatory medications. Reason For Visit: GENERALIZED WEAKNESS, ESRD ON DIALYSIS Physical Exam Vital Signs: Temp Pulse Resp BP Pulse Ox 97.5 F 52 L 16 116/46 L 96 11/13/19 11:23 11/13/19 11:23 11/13/19 11:23 11/13/19 11:23 11/13/19 11:23 Intake & Output 11/12/19 11/13/19 11/14/19 06:59 06:59 06:59 Intake Total 1000 1000 Output Total 500 Balance 500 1000 Weight 87 kg 88.1 kg General appearance: PRESENT: no acute distress, cooperative, well-developed Head exam: PRESENT: atraumatic, normocephalic Ear exam: PRESENT: normal external ear exam. ABSENT: bleeding, drainage Mouth exam: PRESENT: moist, tongue midline Neck exam: ABSENT: carotid bruit Respiratory exam: PRESENT: clear to auscultation yair, symmetrical, unlabored. ABSENT: accessory muscle use, rales, rhonchi, tachypnea, wheezes Cardiovascular exam: PRESENT: RRR, +S1, +S2. ABSENT: bradycardia, diastolic murmur, irregular rhythm, systolic murmur, tachycardia GI/Abdominal exam: PRESENT: normal bowel sounds, soft. ABSENT: distended, guarding, tenderness Rectal exam: PRESENT: deferred Gentrourinary exam: PRESENT: indwelling catheter - Extremely small amount of urine present Extremities exam: ABSENT: pedal edema Musculoskeletal exam: PRESENT: ambulatory - With assistance. Please see physical therapy evaluation., normal inspection Neurological exam: PRESENT: alert, awake, oriented to person, oriented to place, oriented to situation, CN II-XII grossly intact Psychiatric exam: PRESENT: flat affect. ABSENT: agitated, anxious Focused psych exam: ABSENT: delusional, paranoid, restlessness Skin exam: PRESENT: dry, normal color, warm. ABSENT: rash Results Laboratory Results: 11/12/19 04:48 11/12/19 04:48 Impressions: Cervical Spine CT 11/11/19 00:00 IMPRESSION: Age-indeterminate compression deformity of the superior endplate of the T2 vertebral body with less than 10% loss of the vertebral body height and no retropulsion. Consider correlation with a bone or MRI to exclude an acute compression fracture. Head CT 11/11/19 00:00 IMPRESSION: No acute intracranial abnormality. EVIDENCE OF ACUTE STROKE: NO. Lumbar Spine CT 11/11/19 15:42 IMPRESSION: 1. There may be partial sacralization of L5. The disc space is quite narrow. 2. Mild central canal stenosis at L4-5 secondary to hypertrophic facet and ligament changes. 3. No significant disc protrusions. 4. The set arthropathy at several levels. 5. Spondylosis most prominently at L2-3 and L3-4. Assessment and Plan - Diagnosis (1) Generalized weakness Is this a current diagnosis for this admission?: Yes Plan: Still difficult to tell the exact etiology. His BUN was in the 60s when he is normally in the 40s. It could be an adverse effect of uremia but his body should be used to the elevated BUN. No cultures were obtained. He did not present like an infection. Physical therapy is working with the patient. They note that he does fatigue quite easily. We will continue supportive care. (2) Multiple falls Is this a current diagnosis for this admission?: Yes Plan: He had multiple falls at home. Most likely related to balance. CT scan of the head showed atrophy consistent with age. We will obtain an MRI for better definition. The falls could be related to a more transient etiology. Continue physical therapy. (3) End stage renal disease on dialysis Is this a current diagnosis for this admission?: Yes Plan: Due for dialysis tomorrow (4) Pain in urethral meatus Is this a current diagnosis for this admission?: Yes Plan: Improved with lidocaine (5) Anemia in chronic kidney disease Qualifiers: Chronic kidney disease stage: on chronic dialysis Qualified Code(s): N18.6 - End stage renal disease; D63.1 - Anemia in chronic kidney disease; Z99.2 - Dependence on renal dialysis Is this a current diagnosis for this admission?: Yes Plan: Hemoglobin stable (6) Hyperglycemia due to type 2 diabetes mellitus Qualifiers: Diabetes mellitus terminal gauger insulin use: with terminal gauger use Qualified Code(s): E11.65 - Type 2 diabetes mellitus with hyperglycemia; Z79.4 - continuous churn buttermaker (current) use of insulin Is this a current diagnosis for this admission?: Yes Plan: Good control. Continue current regimen. (7) HTN (hypertension) Qualifiers: Hypertension type: essential hypertension Qualified Code(s): I10 - Essential (primary) hypertension Is this a current diagnosis for this admission?: Yes Plan: Excellent blood pressure control. Continue current regimen (8) Coronary artery disease Qualifiers: Coronary Disease-Associated Artery/Lesion type: [place] artery [place] vs. transplanted heart: [place] heart Associated angina: without angina Qualified Code(s): I25.10 - Atherosclerotic heart disease of [place] coronary artery without angina pectoris Is this a current diagnosis for this admission?: Yes Plan: No evidence of acute coronary syndrome. Continue current medications (9) Chronic diastolic heart failure Is this a current diagnosis for this admission?: Yes Plan: No overt failure noted. Continue medications and hemodialysis (10) Hypercholesterolemia Is this a current diagnosis for this admission?: Yes Plan: Continue statin therapy (11) Degenerative disc disease, cervical Is this a current diagnosis for this admission?: Yes Plan: Chronic per discussion with the patient. Medications are limited due to end- stage kidney disease. Would like to avoid chronic narcotic use due to addictive potential. (12) Degenerative disc disease, lumbar Is this a current diagnosis for this admission?: Yes Plan: As above (13) Osteoarthritis of spine at multiple levels Is this a current diagnosis for this admission?: Yes Plan: As above. Ongoing physical therapy may be helpful. (14) Gastroesophageal reflux disease Qualifiers: Esophagitis presence: without esophagitis Qualified Code(s): K21.9 - Gastro-esophageal reflux disease without esophagitis Is this a current diagnosis for this admission?: Yes Plan: Continue Pepcid. (15) Depression Qualifiers: Depression Type: unspecified Qualified Code(s): F32.9 - Major depressive disorder, single episode, unspecified Is this a current diagnosis for this admission?: Yes Plan: Appreciate psychiatry's input. Per their recommendations I have initiated Cymbalta 30 mg daily. (16) Prostatic hyperplasia Is this a current diagnosis for this admission?: Yes Plan: Continue current medications. We will aim to remove Moraes catheter hopefully tomorrow. - Plan Summary Summary: Patient will be admitted to the medical floor where he received routine supportive and symptomatic cares. Nephrology consultation will be obtained with Dr. Ba Evans for evaluation and treatment with end-stage renal disease and need for dialysis. environmental services aide consultation will be obtained for probable correction facility placement post hospitalization. Physical therapy occupational therapy and speech therapy consultations will be obtained. Patient will be monitored closely with CBCs, metabolic profiles and additional laboratory and/or radiographic evaluations as needed. He will receive morphine sulfate 2 to 4 mg IV every 2 hours as needed for pain and Ativan 1 mg IV every 4 hours as needed for anxiety or restlessness. He will be on a dialysis restricted cardiac and diabetic diet. Before meals and at bedtime Accu-Cheks will be performed with sliding scale insulin for hyperglycemia and a hypoglycemic protocol in place. Neuro checks will be performed every 4 hours. - Time Time Spent with patient: 15-24 minutes Medications reviewed and adjusted accordingly: Yes Anticipated Discharge Disposition: Home with Home Health Anticipated Discharge Timeframe: within 48 hours
[2019-11-13] MEDS ORDERED: ONDANSETRON HCL INJ/PF 4 MG/2 ML SDV IV PRN (15:30)
[2019-11-13] MEDS ORDERED: ACETAMINOPHEN 325 MG TABLET PO PRN (15:30)
[2019-11-13] MEDS: INSULIN REG, HUMAN 100 UNIT/ML 3 ML VIAL (PYX) SUBCUT PRN (15:50)
--- NOTE | 2019-11-13 18:50 | PSYCHOLOGICAL NOTE ---
Psych Note - Psych Note Date seen by psych provider: 11/13/19 Time seen by psych provider: 17:38 - Evaluation with patient from [id number]. Psych Note: Patient is a 69 year old male admitted to hospitalist services for multiple medical issues (end stage renal disease and on dialysis) as well as others. A psychiatric consult was ordered due to depression. Patient reported he is depressed. He admitted to having suicidal ideation a few weeks back and [facility], he felt they put him off, said someone would call him, and he stated "I want to see someone one person." Discussed the state of the world due to COVID-19 and how we may not be able to get away from phone therapy. He stated he understood that. He admitted to suicidal thoughts in the past, denied ever taking any action to hurt/harm/kill self, noted they were passive thoughts, mentioned being a Zoroastrianism, and not putting his through something like that. Patient identified he was diagnosed with Dysthymia in 1992. He stated he's been on Prozac and Lexapro in the past. He admitted he only took the Prozac for 3 months, felt good, and weened self off. He reported the Lexapro was effective previously. Patient discussed and processed some of his triggers. He talked ab out growing up, the strained relationship between him and his parents (they were okay with doing bad things for money, he was not okay with that, feeling like his father always hated him, his sister who was 3 years younger always getting away with things up until their parents passed when they gave her everything, he was drafted into the [employer] and sent to [employer]/his mother told him he had to go because no money for college, then his parents had a huge house built). He mentioned having survivor's guilt from [place], but later after being encouraged several times by this clinician to try to think of more positive thoughts, he said "I suppose survivor's guilt is better than not surviving." Patient also mentioned a childhood friend who 10 years back and he had not known until trying to reach out to him via email. Patient acknowledged "I'm home and then dialysis, I don't do anything, we used to go to christianity and got away from that." He identified when he was told about having Congestive Heart Failure he took that bad mentally. He noted then I had a heart attack, COPD, and the diabetic retinopathy so cannot read. He stated "the worse my health gets the worse my depression seems to get." He reported being restricted to a wheelchair due to chronic back pain and only being able to stand up for a couple minutes at a time. Patient mentioned not being able to do things he once could and brought up before moving to [place] he had a wood shop to chon in and misses that. He described himself as "I can worry any situation to ." He stated he has problems with his memory and unless there is a major event he can connect with it it's hard to identify time frame. Patient was able to release emotion via crying about 3-4 times. He would often apologize. He stated "I want to fix this, I want to win over the depression." Patient was alert and oriented to self, person, place, time and situation. Mood was depressed with tearful affect (he was able to release the emotion, and stop crying). He denied current suicidal and homicidal ideation, admitted to passive thoughts in the past, most recent being a couple weeks ago and he reached out to the [place]. Patient did not appear to be responding to internal stimuli as evidenced by fair eye contact, answering questions appropriately when addressed, being engaged and carrying on dialogue conversation. Thought processes were linear. Conversational speech was within normal limits for rate, tone and prosody. Intellectual abilities are estimated to be average. Insight, judgment and impulse control were fair as evidenced by discussing and processing thoughts/feelings and allowing release of emotion via crying at appropriate times. Chart review revealed patient has elevated Qt and QTc levels, elevated creatinine levels, diabetes mellitus II, and Head CT dated 11/11/2019 had some neurodegenerative language. Psychiatric related medications being administered in the hospital include: Lexapro 30MG daily started this morning, Melatonin 5MG at night as needed for sleep, and Ativan 1MG IV every 4 hours as needed for anxiety/agitation. Clinical Presentation: Multiple Medical Issues Phase of Life Changes Depression Medication recommendations made by the psychiatric medication provider Dr. Julieta BEST., includes: Have to be cautious of SSRI due to elevated QT/QTc Have to be cautious of SNRI due to elevated Creatinine Discontinue Lexapro 30 MG daily for depression Discontinue Ativan 1MG IV every 4 hours as needed for anxiety/agitation (concern for neurodegenerative language on Head CT) Add Cymbalta DR Capsule 30MG daily for depression Continue Melatonin 5MG at night as needed for sleep Impression/Plan: Patient is cleared from acute psychiatric services. He was able to discuss and process triggers to depression, as well as allowed for release of emotion via crying. He wants to be connected to outpatient mental health services. He has [facility] and [facility] so there could be multiple options. When patient is ready to be discharged [facility] can link and schedule outpatient mental health follow up. Consulted with Dr. Isaacs regarding the management and care of patient. Attending Hospitalist made aware of recommendations.
[2019-11-13] MEDS: FAMOTIDINE 20 MG TABLET PO SCH (22:43)
[2019-11-13] MEDS: MELATONIN 5 MG TABLET PO PRN (22:43)
[2019-11-13] MEDS: ATORVASTATIN CALCIUM 80 MG TABLET PO SCH (22:44)
--- NOTE | 2019-11-14 00:10 | RADIOLOGY REPORT (SQ) ---
MRI of the brain without intravenous contrast: 11/13/2019 11:07 PM CDT INDICATION: 69-year-old patient with falls, ataxia COMPARISON: CT the head from 11/11/2019 TECHNIQUE: Sagittal T1; axial diffusion, ADC, T2, FLAIR images through the brain were obtained without intravenous contrast administered. FINDINGS: There is some artifact seen at the frontal lobes which could be due to to dental artifact. Evaluation is also limited by some motion artifact. Mild mucoperiosteal thickening is seen at the ethmoid sinuses. There is mild prominence of the cerebral sulci and ventricles, suggestive of cerebral atrophy. Mild nonspecific periventricular hyperintense signal is also seen, which may reflect chronic microvascular ischemia. No obvious restricted diffusion is seen. The cervicomedullary junction is unremarkable. The visualized orbits also appear unremarkable. No extra-axial fluid collection is seen. No midline shift or mass effect is seen. The visualized vascular flow voids appear normal. The cerebellopontine angles appear normal. No abnormal signal is seen to suggest acute hemorrhage. The chong-white matter differentiation is normal. No focal signal abnormality is seen. IMPRESSION: 1. No acute intracranial process is seen. 2. Mild cerebral atrophy and periventricular white matter changes are seen.
[2019-11-14 05:24] LABS: HEMATOCRIT 33.6 % (37.9-51.0); HEMOGLOBIN 10.9 g/dL (13.5-17.0); MEAN CORPUSCULAR HEMOGLOBIN 31.2 pg (27.0-33.4); MEAN CORPUSCULAR HGB CONC 32.6 g/dL (32.0-36.0); MEAN CORPUSCULAR VOLUME 96 fl (80-97); PLATELET COUNT 196 10^3/uL (150-450); RED BLOOD COUNT 3.51 10^6/uL (4.35-5.55); RED CELL DISTRIBUTION WIDTH 17.2 % (11.5-14.0); WHITE BLOOD COUNT 7.2 10^3/uL (4.0-10.5)
[2019-11-14 05:45] LABS: ALBUMIN 4.3 g/dL (3.5-5.0); ANION GAP 16 (5-19); BLOOD UREA NITROGEN 62 mg/dL (7-20); CALCIUM 8.9 mg/dL (8.4-10.2); CARBON DIOXIDE 24 mmol/L (22-30); CHLORIDE 97 mmol/L (98-107); GLUCOSE 123 mg/dL (75-110); PHOSPHORUS 6.9 mg/dL (2.5-4.5); POTASSIUM 5.4 mmol/L (3.6-5.0)
[2019-11-14] MEDS: PANTOPRAZOLE SODIUM 40 MG TABLET.DR PO SCH (06:08)
[2019-11-14] MEDS: HEPARIN SOD (PORCINE) 5,000 UNIT/ML 1 ML VIAL SUBCUT SCH ×3 (06:08→22:01)
[2019-11-14] MEDS: ASPIRIN 81 MG TABLET, CHEWABLE PO SCH (10:23)
[2019-11-14] MEDS: DULOXETINE HCL 30 MG CAPSULE.DR PO SCH (10:23)
[2019-11-14] MEDS: VITAMIN B COMPLEX TABLET PO SCH (10:23)
[2019-11-14] MEDS: DOCUSATE SODIUM 100 MG CAPSULE PO SCH ×2 (10:23→17:12)
[2019-11-14] MEDS: ISOSORBIDE MONONITRATE 30 MG TAB.ER.24H PO SCH (10:23)
[2019-11-14] MEDS: CARVEDILOL 12.5 MG TABLET PO SCH ×2 (10:23→22:01)
[2019-11-14] MEDS: DOXAZOSIN MESYLATE 2 MG TABLET PO SCH (10:24)
[2019-11-14] MEDS: FINASTERIDE 5 MG TABLET PO SCH (10:24)
--- NOTE | 2019-11-14 14:15 | PDOC PROGRESS REPORT ---
Subjective Progress Note for:: 11/14/19 Reason For Visit: Patient seen today on dialysis. He is wide awake alert oriented unlike when I saw him couple of days ago. He denies any specific complaints of headache chest pain shortness of breath fever or chills. His COVID test was negative. Dialysis is going well without any issues. Vital signs are stable. Labs and medications reviewed. Unfortunately no urine test was done. Dialysis orders were reviewed with the treating dialysis nurse. Physical Exam Vital Signs: Temp Pulse Resp BP Pulse Ox 98.6 F 63 16 100/42 L 94 11/14/19 11:21 11/14/19 14:05 11/14/19 14:05 11/14/19 11:21 11/14/19 05:29 Intake & Output 11/13/19 11/14/19 11/15/19 06:59 06:59 06:59 Intake Total 1000 1000 Output Total 433 66 2656 Balance 500 970 -1500 Weight 88.1 kg 91.3 kg General appearance: PRESENT: no acute distress Respiratory exam: PRESENT: clear to auscultation yair, decreased breath sounds. ABSENT: crackles Cardiovascular exam: PRESENT: +S1, +S2 GI/Abdominal exam: PRESENT: normal bowel sounds, soft. ABSENT: organomegaly, tenderness Extremities exam: ABSENT: pedal edema Neurological exam: PRESENT: alert, awake, oriented to person, oriented to place Psychiatric exam: PRESENT: appropriate affect Skin exam: ABSENT: erythema, mottled, rash Results Laboratory Results: 11/14/19 04:56 11/14/19 04:56 11/14/19 11/14/19 04:56 04:56 WBC 7.2 RBC 3.51 L Hgb 10.9 L Hct 33.6 L MCV 96 MCH 31.2 MCHC 32.6 RDW 17.2 H Plt Count 196 Sodium 136.6 L Potassium 5.4 H Chloride 97 L Carbon Dioxide 24 Anion Gap 16 BUN 62 H Creatinine 7.22 H Est GFR ( Amer) 9 L Glucose 123 H Calcium 8.9 Phosphorus 6.9 H Albumin 4.3 Impressions: Cervical Spine CT 11/11/19 00:00 IMPRESSION: Age-indeterminate compression deformity of the superior endplate of the T2 vertebral body with less than 10% loss of the vertebral body height and no retropulsion. Consider correlation with a bone or MRI to exclude an acute compression fracture. Head CT 11/11/19 00:00 IMPRESSION: No acute intracranial abnormality. EVIDENCE OF ACUTE STROKE: NO. Lumbar Spine CT 11/11/19 15:42 IMPRESSION: 1. There may be partial sacralization of L5. The disc space is quite narrow. 2. Mild central canal stenosis at L4-5 secondary to hypertrophic facet and ligament changes. 3. No significant disc protrusions. 4. The set arthropathy at several levels. 5. Spondylosis most prominently at L2-3 and L3-4. Head MRI 11/13/19 00:00 IMPRESSION: 1. No acute intracranial process is seen. 2. Mild cerebral atrophy and periventricular white matter changes are seen. Assessment & Plan - Diagnosis (1) Acute delirium Plan: Currently resolved. Unknown etiology. So far radiological imaging of his brain including CT/MRI of brain other than atrophy was negative. (2) End stage renal disease on dialysis Is this a current diagnosis for this admission?: Yes Plan: Currently undergoing dialysis without any issues. Vital signs are stable. Dialysis being supervised. Plan to remove less than half a liter of fluid as currently patient is clinically dry. Dialysis orders were reviewed with the treating dialysis nurse. (3) Diabetes mellitus type 2 in nonobese Is this a current diagnosis for this admission?: Yes Plan: Advised on tight control. (4) Generalized weakness Is this a current diagnosis for this admission?: Yes Plan: Improving. (5) Multiple falls Is this a current diagnosis for this admission?: Yes Plan: Unsure of the exact etiology other than it occurred during his altered mental status.
--- NOTE | 2019-11-14 15:59 | PDOC PROGRESS REPORT ---
Subjective Progress Note for:: 11/14/19 Subjective:: The patient is sitting on the edge of the bed. He is the most awake and alert today of seeing him. He is fully conversant. He still reports some back pain. Reason For Visit: GENERALIZED WEAKNESS, ESRD ON DIALYSIS Depression Hyperkalemia Hyperphosphatemia Physical Exam Vital Signs: Temp Pulse Resp BP Pulse Ox 98.6 F 63 16 100/42 L 94 11/14/19 11:21 11/14/19 14:05 11/14/19 14:05 11/14/19 11:21 11/14/19 05:29 Intake & Output 11/13/19 11/14/19 11/15/19 06:59 06:59 06:59 Intake Total 1000 1000 Output Total 683 74 3801 Balance 500 970 -1500 Weight 88.1 kg 91.3 kg General appearance: PRESENT: cooperative, mild distress, well-developed Head exam: PRESENT: atraumatic, normocephalic Eye exam: PRESENT: conjunctiva pink. ABSENT: scleral icterus Ear exam: PRESENT: normal external ear exam. ABSENT: bleeding, drainage Mouth exam: PRESENT: moist, tongue midline Respiratory exam: PRESENT: clear to auscultation yair, symmetrical, unlabored. ABSENT: rales, rhonchi, tachypnea, wheezes Cardiovascular exam: PRESENT: RRR, +S1, +S2. ABSENT: bradycardia, diastolic murmur, irregular rhythm, systolic murmur, tachycardia GI/Abdominal exam: PRESENT: normal bowel sounds, soft. ABSENT: distended, guarding, tenderness Rectal exam: PRESENT: deferred Gentrourinary exam: PRESENT: indwelling catheter Extremities exam: ABSENT: pedal edema Musculoskeletal exam: PRESENT: ambulatory - Still quite weak, normal inspection Neurological exam: PRESENT: alert, awake, oriented to person, oriented to place, oriented to situation, CN II-XII grossly intact. ABSENT: altered Psychiatric exam: PRESENT: appropriate affect. ABSENT: agitated, anxious Focused psych exam: ABSENT: delusional, paranoid, restlessness Skin exam: PRESENT: dry, warm. ABSENT: rash Results Laboratory Results: 11/14/19 04:56 11/14/19 04:56 11/14/19 11/14/19 04:56 04:56 WBC 7.2 RBC 3.51 L Hgb 10.9 L Hct 33.6 L MCV 96 MCH 31.2 MCHC 32.6 RDW 17.2 H Plt Count 196 Sodium 136.6 L Potassium 5.4 H Chloride 97 L Carbon Dioxide 24 Anion Gap 16 BUN 62 H Creatinine 7.22 H Est GFR ( Amer) 9 L Glucose 123 H Calcium 8.9 Phosphorus 6.9 H Albumin 4.3 Impressions: Cervical Spine CT 11/11/19 00:00 IMPRESSION: Age-indeterminate compression deformity of the superior endplate of the T2 vertebral body with less than 10% loss of the vertebral body height and no retropulsion. Consider correlation with a bone or MRI to exclude an acute compression fracture. Head CT 11/11/19 00:00 IMPRESSION: No acute intracranial abnormality. EVIDENCE OF ACUTE STROKE: NO. Lumbar Spine CT 11/11/19 15:42 IMPRESSION: 1. There may be partial sacralization of L5. The disc space is quite narrow. 2. Mild central canal stenosis at L4-5 secondary to hypertrophic facet and ligament changes. 3. No significant disc protrusions. 4. The set arthropathy at several levels. 5. Spondylosis most prominently at L2-3 and L3-4. Head MRI 11/13/19 00:00 IMPRESSION: 1. No acute intracranial process is seen. 2. Mild cerebral atrophy and periventricular white matter changes are seen. Assessment and Plan - Diagnosis (1) Generalized weakness Is this a current diagnosis for this admission?: Yes Plan: Still quite weak but improving somewhat. This was likely related to a combination of factors. It seems that with each successive dialysis treatment he is improved. (2) Multiple falls Is this a current diagnosis for this admission?: Yes Plan: Secondary to the generalized weakness. He will benefit from home health with physical therapy. (3) End stage renal disease on dialysis Is this a current diagnosis for this admission?: Yes Plan: Receive dialysis earlier today. No complications. (4) Pain in urethral meatus Is this a current diagnosis for this admission?: Yes Plan: Still painful. Will discontinue Moraes catheter. (5) Anemia in chronic kidney disease Qualifiers: Chronic kidney disease stage: on chronic dialysis Qualified Code(s): N18.6 - End stage renal disease; D63.1 - Anemia in chronic kidney disease; Z99.2 - Dependence on renal dialysis Is this a current diagnosis for this admission?: Yes Plan: Hemoglobin has been stable. Continue to monitor. (6) Hyperglycemia due to type 2 diabetes mellitus Qualifiers: Diabetes mellitus terminal superintendent insulin use: with terminal superintendent use Qualified Code(s): E11.65 - Type 2 diabetes mellitus with hyperglycemia; Z79.4 - skilled nursing (current) use of insulin Is this a current diagnosis for this admission?: Yes Plan: Accu-Cheks still variable. Continue current regimen (7) HTN (hypertension) Qualifiers: Hypertension type: essential hypertension Qualified Code(s): I10 - Essential (primary) hypertension Is this a current diagnosis for this admission?: Yes Plan: Blood pressures well controlled. No changes at this time. (8) Coronary artery disease Qualifiers: Coronary Disease-Associated Artery/Lesion type: platinum artery [place] vs. transplanted heart: platinum heart Associated angina: without angina Qualified Code(s): I25.10 - Atherosclerotic heart disease of platinum coronary artery without angina pectoris Is this a current diagnosis for this admission?: Yes Plan: On current regimen remains without evidence of acute coronary syndrome (9) Chronic diastolic heart failure Is this a current diagnosis for this admission?: Yes Plan: Asymptomatic at this time. Hemodialysis is managing fluids since urine output has declined. Continue current regimen. (10) Hypercholesterolemia Is this a current diagnosis for this admission?: Yes Plan: Continue statin therapy (11) Degenerative disc disease, cervical Is this a current diagnosis for this admission?: Yes Plan: Will benefit from physical therapy and stretching. Unfortunately utilization of nonsteroidal anti-inflammatory medications is not advised with his kidney failure and cardiovascular disease. Consider trials of [id number] pain patches. (12) Degenerative disc disease, lumbar Is this a current diagnosis for this admission?: Yes Plan: As above (13) Osteoarthritis of spine at multiple levels Is this a current diagnosis for this admission?: Yes Plan: As above (14) Gastroesophageal reflux disease Qualifiers: Esophagitis presence: without esophagitis Qualified Code(s): K21.9 - Gastro-esophageal reflux disease without esophagitis Is this a current diagnosis for this admission?: Yes Plan: Continue proton pump inhibitor (15) Depression Qualifiers: Depression Type: unspecified Qualified Code(s): F32.9 - Major depressive disorder, single episode, unspecified Is this a current diagnosis for this admission?: Yes Plan: Per psychiatric evaluation. Have discontinued Lexapro and will initiate Cymbalta. This may also help with his chronic pain. (16) Prostatic hyperplasia Is this a current diagnosis for this admission?: Yes Plan: Continue doxazosin (formulary substitution for terazosin) and finasteride (17) Hyperkalemia Is this a current diagnosis for this admission?: Yes Plan: Potassium was still up slightly this morning (5.4). Dialysis will remove some potassium. Continue to monitor. (18) Hyperphosphatemia Is this a current diagnosis for this admission?: Yes Plan: We will start low-dose PhosLo 1 tablet with meals - Plan Summary Summary: Patient will be admitted to the medical floor where he received routine supportive and symptomatic cares. Nephrology consultation will be obtained with Dr. Ba Evans for evaluation and treatment with end-stage renal disease and need for dialysis. mountain services manager consultation will be obtained for probable [facility] facility placement post hospitalization. Physical therapy occupational therapy and speech therapy consultations will be obtained. Patient will be monitored closely with CBCs, metabolic profiles and additional laboratory and/or radiographic evaluations as needed. He will receive morphine sulfate 2 to 4 mg IV every 2 hours as needed for pain and Ativan 1 mg IV every 4 hours as needed for anxiety or restlessness. He will be on a dialysis restricted cardiac and diabetic diet. Before meals and at bedtime Accu-Cheks will be performed with sliding scale insulin for hyperglycemia and a hypogly cemic protocol in place. Neuro checks will be performed every 4 hours. - Time Time Spent with patient: 15-24 minutes Medications reviewed and adjusted accordingly: Yes Anticipated Discharge Disposition: Home with Home Health Anticipated Discharge Timeframe: within 24 hours
[2019-11-14] MEDS ORDERED: PATIROMER 8.4 GM SUSP PACKET PO SCH (17:00)
[2019-11-14] MEDS: INSULIN REG, HUMAN 100 UNIT/ML 3 ML VIAL (PYX) SUBCUT PRN (21:59)
[2019-11-14] MEDS: MELATONIN 5 MG TABLET PO PRN (22:00)
[2019-11-14] MEDS: ATORVASTATIN CALCIUM 80 MG TABLET PO SCH (22:00)
[2019-11-14] MEDS: FAMOTIDINE 20 MG TABLET PO SCH (22:02)
[2019-11-15] MEDS: HEPARIN SOD (PORCINE) 5,000 UNIT/ML 1 ML VIAL SUBCUT SCH ×2 (06:37→13:08)
[2019-11-15] MEDS: PANTOPRAZOLE SODIUM 40 MG TABLET.DR PO SCH (06:37)
[2019-11-15] MEDS: CALCIUM ACETATE 667 MG CAPSULE PO SCH ×2 (08:10→13:08)
[2019-11-15] MEDS: ISOSORBIDE MONONITRATE 30 MG TAB.ER.24H PO SCH (10:07)
[2019-11-15] MEDS: ASPIRIN 81 MG TABLET, CHEWABLE PO SCH (10:07)
[2019-11-15] MEDS: DULOXETINE HCL 30 MG CAPSULE.DR PO SCH (10:07)
[2019-11-15] MEDS: CARVEDILOL 12.5 MG TABLET PO SCH (10:07)
[2019-11-15] MEDS: DOCUSATE SODIUM 100 MG CAPSULE PO SCH (10:07)
[2019-11-15] MEDS: VITAMIN B COMPLEX TABLET PO SCH (10:08)
[2019-11-15] MEDS: DOXAZOSIN MESYLATE 2 MG TABLET PO SCH (10:08)
[2019-11-15] MEDS: FINASTERIDE 5 MG TABLET PO SCH (10:08)
--- NOTE | 2019-11-15 15:23 | PDOC DISCHARGE SUMMARY ---
Impression - Admit/DC Date/PCP Admission Date/Primary Care Provider: 11/11/19 19:[facility] Discharge Date: 11/15/19 - Discharge Diagnosis (1) Generalized weakness Is this a current diagnosis for this admission?: Yes (2) Multiple falls Is this a current diagnosis for this admission?: Yes (3) End stage renal disease on dialysis Is this a current diagnosis for this admission?: Yes (4) Pain in urethral meatus Is this a current diagnosis for this admission?: Yes (5) Anemia in chronic kidney disease Is this a current diagnosis for this admission?: Yes (6) Hyperglycemia due to type 2 diabetes mellitus Is this a current diagnosis for this admission?: Yes (7) HTN (hypertension) Is this a current diagnosis for this admission?: Yes (8) Coronary artery disease Is this a current diagnosis for this admission?: Yes (9) Chronic diastolic heart failure Is this a current diagnosis for this admission?: Yes (10) Hypercholesterolemia Is this a current diagnosis for this admission?: Yes (11) Degenerative disc disease, cervical Is this a current diagnosis for this admission?: Yes (12) Degenerative disc disease, lumbar Is this a current diagnosis for this admission?: Yes (13) Osteoarthritis of spine at multiple levels Is this a current diagnosis for this admission?: Yes (14) Gastroesophageal reflux disease Is this a current diagnosis for this admission?: Yes (15) Depression Is this a current diagnosis for this admission?: Yes (16) Prostatic hyperplasia Is this a current diagnosis for this admission?: Yes (17) Hyperkalemia Is this a current diagnosis for this admission?: Yes (18) Hyperphosphatemia Is this a current diagnosis for this admission?: Yes - Assessment Summary: Patient will be admitted to the medical floor where he received routine supportive and symptomatic cares. Nephrology consultation will be obtained with Dr. Ba Evans for evaluation and treatment with end-stage renal disease and need for dialysis. well services operator consultation will be obtained for probable [facility] facility placement post hospitalization. Physical therapy occupational therapy and speech therapy consultations will be obtained. Patient will be monitored closely with CBCs, metabolic profiles and additional laboratory and/or radiographic evaluations as needed. He will receive morphine sulfate 2 to 4 mg IV every 2 hours as needed for pain and Ativan 1 mg IV every 4 hours as needed for anxiety or restlessness. He will be on a dialysis restri cted cardiac and diabetic diet. Before meals and at bedtime Accu-Cheks will be performed with sliding scale insulin for hyperglycemia and a hypoglycemic protocol in place. Neuro checks will be performed every 4 hours. - Additional Information Resuscitation Status: Full Code Discharge Diet: Cardiac, Diabetic Discharge Activity: Activity As Tolerated Referrals: [facility] [Primary [facility]] - Follow up as needed (TRIED TO SET UP APPOINTMENT BUT AUTOMATED SYSTEM WASNT WORKING CORRECTLY) Prescriptions: Duloxetine HCl [Cymbalta 30 mg Capsule.] 30 mg PO DAILY #30 capsule. Calcium Acetate [Phoslo 667 mg Capsule] 667 mg PO MEALS #90 capsule Tramadol HCl [Ultram 50 mg Tablet] 50 mg PO Q8H PRN #15 tablet PRN Reason: Home Medications: Aspirin [Aspirin 81 mg Chewable Tablet] 81 mg PO DAILY 10/09/18 Atorvastatin Calcium [Lipitor 80 mg Tablet] 80 mg PO QHS 10/09/18 Insulin Glargine,Hum.rec.anlog [Lantus Insulin 100 Unit/1 ml 10 ml] 80 unit SUBCUT DAILY 10/09/18 Isosorbide Mononitrate [Imdur 30 mg Tablet.er] 30 mg PO DAILY 10/09/18 Terazosin HCl 2 mg PO DAILY 05/26/19 B Complex W-C No.20/Folic Acid [Renal Caps Softgel] 1 mg PO DAILY 11/12/19 Carvedilol [Coreg 12.5 mg Tablet] 12.5 mg PO Q12 11/12/19 Famotidine [Pepcid 20 mg Tablet] 20 mg PO QHS 11/12/19 Finasteride [Proscar 5 mg Tablet] 5 mg PO DAILY 11/12/19 Duloxetine HCl [Cymbalta 30 mg Capsule.] 30 mg PO DAILY #30 capsule. 11/14/19 Calcium Acetate [Phoslo 667 mg Capsule] 667 mg PO MEALS #90 capsule 11/15/19 Docusate Sodium [Colace 100 mg Capsule] 100 mg PO BID capsule 11/15/19 Duloxetine HCl [Cymbalta 30 mg Capsule.] 30 mg PO DAILY capsule. 11/15/19 Guaifenesin [Robitussin Syrup 200 mg/10 ml Ud Cup] 200 mg PO Q4HP PRN udc 11/15/19 Tramadol HCl [Ultram 50 mg Tablet] 50 mg PO Q8H PRN #15 tablet 11/15/19 History of Present Illiness History of Present Illness: CELIO WAGNER is a 69 year old male who presented to the emergency room with a 3-day history of frequent falls. He and his admit that has suffered at least 5 falls over the last 3 days with 2 in the last 24 hours. The falls were from the standing/walking position using a walker and have not resulted in any loss of consciousness or obvious acute injury other than worsening of chronic low back discomfort with movements. He and his concur that his falls are associated with generalized weakness over the same 3-day interval. He is noted to be a dialysis patient whose last dialysis was on 11/07/2019. They deny other associated or accompanying signs and symptoms. They deny prior similar episodes. They have not identified any aggravating or ameliorating factors for his falls. In the emergency room he was found to have a negative falls/trauma evaluation but due to his generalized weakness and his need for dialysis he was admitted to the hospital at Dr. Evans's recommendation for further evaluation and treatment. Hospital Course Hospital Course: slowed by weakness. Once he was fluid neutral and the uremia improved he became more awake and alert. worried about mobility. Will d/c with home health and resume dialysis schedule Physical Exam Vital Signs: Temp Pulse Resp BP Pulse Ox 97.9 F 61 19 124/52 L 93 11/15/19 12:00 11/15/19 12:00 11/15/19 12:00 11/15/19 12:00 11/15/19 12:00 Intake & Output 11/14/19 11/15/19 11/16/19 06:59 06:59 06:59 Intake Total 1000 380 520 Output Total 30 1500 Balance 970 -1120 520 Weight 91.3 kg 90 kg General appearance: PRESENT: no acute distress Respiratory exam: PRESENT: clear to auscultation yair, symmetrical, unlabored. ABSENT: rales, rhonchi, tachypnea, wheezes Cardiovascular exam: PRESENT: RRR, +S1, +S2 GI/Abdominal exam: PRESENT: normal bowel sounds, soft. ABSENT: tenderness Results Laboratory Results: WBC 7.2 10^3/uL (4.0-10.5) 11/14/19 04:56 RBC 3.51 10^6/uL (4.35-5.55) L 11/14/19 04:56 Hgb 10.9 g/dL (13.5-17.0) L 11/14/19 04:56 Hct 33.6 % (37.9-51.0) L 11/14/19 04:56 MCV 96 fl (80-97) 11/14/19 04:56 MCH 31.2 pg (27.0-33.4) 11/14/19 04:56 MCHC 32.6 g/dL (32.0-36.0) 11/14/19 04:56 RDW 17.2 % (11.5-14.0) H 11/14/19 04:56 Plt Count 196 10^3/uL (150-450) 11/14/19 04:56 Lymph % (Auto) 13.1 % (13-45) 11/11/19 15:10 [place] % (Auto) 9.5 % (3-13) 11/11/19 15:10 Eos % (Auto) 3.2 % (0-6) 11/11/19 15:10 Baso % (Auto) 2.4 % (0-2) H 11/11/19 15:10 Absolute Neuts (auto) 4.7 10^3/uL (1.7-8.2) 11/11/19 15:10 Absolute Lymphs (auto) 0.9 10^3/uL (0.5-4.7) 11/11/19 15:10 Absolute Monos (auto) 0.6 10^3/uL (0.1-1.4) 11/11/19 15:10 Absolute Eos (auto) 0.2 10^3/uL (0.0-0.6) 11/11/19 15:10 Absolute Basos (auto) 0.2 10^3/uL (0.0-0.2) 11/11/19 15:10 Seg Neutrophils % 71.8 % (42-78) 11/11/19 15:10 Sodium 136.6 mmol/L (137-145) L 11/14/19 04:56 Potassium 5.4 mmol/L (3.6-5.0) H 11/14/19 04:56 Chloride 97 mmol/L (98-107) L 11/14/19 04:56 Carbon Dioxide 24 mmol/L (22-30) 11/14/19 04:56 Anion Gap 16 (5-19) 11/14/19 04:56 BUN 62 mg/dL (7-20) H 11/14/19 04:56 Creatinine 7.22 mg/dL (0.52-1.25) H 11/14/19 04:56 Est GFR ( Amer) 9 (>60) L 11/14/19 04:56 Est GFR (MDRD) Non-Af 8 (>60) L 11/14/19 04:56 Glucose 123 mg/dL (75-110) H 11/14/19 04:56 POC Glucose 184 mg/dL (70-110) H 11/15/19 15:15 Hemoglobin A1c % 8.5 % (4.7-6.0) H 11/12/19 04:48 Calcium 8.9 mg/dL (8.4-10.2) 11/14/19 04:56 Phosphorus 6.9 mg/dL (2.5-4.5) H 11/14/19 04:56 Magnesium 2.4 mg/dL (1.6-2.3) H 11/12/19 04:48 Total Bilirubin 0.6 mg/dL (0.2-1.3) 11/11/19 15:10 Direct Bilirubin 0.4 mg/dL (0.0-0.4) 11/11/19 15:10 Neonat Total Bilirubin Not Reportable 11/11/19 15:10 Neonat Direct Bilirubin Not Reportable 11/11/19 15:10 Neonat Indirect Bili Not Reportable 11/11/19 15:10 AST 17 U/L (17-59) 11/11/19 15:10 ALT 13 U/L (<50) 11/11/19 15:10 Alkaline Phosphatase 107 U/L (38-126) 11/11/19 15:10 Total Protein 6.8 g/dL (6.3-8.2) 11/11/19 15:10 Albumin 4.3 g/dL (3.5-5.0) 11/14/19 04:56 Triglycerides 123 mg/dL (<150) 11/12/19 04:48 Cholesterol 124.32 mg/dL (0-200) 11/12/19 04:48 LDL Cholesterol Direct 60 mg/dL (<100) 11/12/19 04:48 VLDL Cholesterol 25.0 mg/dL (10-31) 11/12/19 04:48 HDL Cholesterol 41 mg/dL (>40) 11/12/19 04:48 Serum Alcohol < 10 mg/dL (NONE DETECTED) 11/11/19 15:10 COVID-19 Source NASOPHARYNGEAL 11/12/19 14:40 COVID-19 ([place]) NOT DETECTED 11/12/19 14:40 Impressions: Cervical Spine CT 11/11/19 00:00 IMPRESSION: Age-indeterminate compression deformity of the superior endplate of the T2 vertebral body with less than 10% loss of the vertebral body height and no retropulsion. Consider correlation with a bone or MRI to exclude an acute compression fracture. Head CT 11/11/19 00:00 IMPRESSION: No acute intracranial abnormality. EVIDENCE OF ACUTE STROKE: NO. Lumbar Spine CT 11/11/19 15:42 IMPRESSION: 1. There may be partial sacralization of L5. The disc space is quite narrow. 2. Mild central canal stenosis at L4-5 secondary to hypertrophic facet and ligament changes. 3. No significant disc protrusions. 4. The set arthropathy at several levels. 5. Spondylosis most prominently at L2-3 and L3-4. Head MRI 11/13/19 00:00 IMPRESSION: 1. No acute intracranial process is seen. 2. Mild cerebral atrophy and periventricular white matter changes are seen. Plan Health Concerns: chronic comorbidities in hemodialysis patient Plan of Treatment: improve mobility with decreased pain Time Spent: Greater than 30 Minutes Stroke Is this a Stroke Patient?: No Acute Heart Failure - Is this a Heart Failure Patient?: No
[2019-11-15 16:15] VITALS: BP 126/50
== END 2019-11-15 18:28 | disposition home health service (06) ==
LOC: ER 14:58 → EH 19:55 → INTOOBSV 19:55 → 4S 22:10
PROVIDERS: ADMIT Emergency Medicine; ATTEND Hospitalist
DX: R53.1 Weakness (principal); R29.6 Repeated falls; I13.2 Hypertensive heart and chronic kidney disease with heart failure and with stage 5 chronic kidney disease, or end stage renal disease; I50.32 Chronic diastolic (congestive) heart failure; E11.22 Type 2 diabetes mellitus with diabetic chronic kidney disease; E11.65 Type 2 diabetes mellitus with hyperglycemia; E11.43 Type 2 diabetes mellitus with diabetic autonomic (poly)neuropathy; D63.1 Anemia in chronic kidney disease; N18.6 End stage renal disease; N36.9 Urethral disorder, unspecified; I25.10 Atherosclerotic heart disease of native coronary artery without angina pectoris; Z99.2 Dependence on renal dialysis; E87.5 Hyperkalemia; R45.1 Restlessness and agitation; R47.9 Unspecified speech disturbances; R41.0 Disorientation, unspecified; E78.00 Pure hypercholesterolemia, unspecified; M50.30 Other cervical disc degeneration, unspecified cervical region; M51.36 Other intervertebral disc degeneration, lumbar region; M48.061 Spinal stenosis, lumbar region without neurogenic claudication; K21.9 Gastro-esophageal reflux disease without esophagitis; F32.9 Major depressive disorder, single episode, unspecified; N40.0 Benign prostatic hyperplasia without lower urinary tract symptoms; E83.39 Other disorders of phosphorus metabolism; M50.31 Other cervical disc degeneration, high cervical region; M48.02 Spinal stenosis, cervical region; R51 Headache; I25.2 Old myocardial infarction; Z60.0 Problems of adjustment to life-cycle transitions; Z03.818 Encounter for observation for suspected exposure to other biological agents ruled out; Z87.440 Personal history of urinary (tract) infections; Z95.5 Presence of coronary angioplasty implant and graft; Z90.49 Acquired absence of other specified parts of digestive tract; Z79.899 Other long term (current) drug therapy; Z87.891 Personal history of nicotine dependence; Z79.82 Long term (current) use of aspirin; Z79.4 Long term (current) use of insulin
CPT/HCPCS: 93005; 99285; 96374; 96375; 80069; 36415 ×3; 82962 ×5; 80307; 83735 ×2; 85025; 85027 ×2; 87635; 80048; 80053; 83036; 80061; 70551; 70450; 72125; 72131; 93010; 97530 ×3; 97116; 97162; 92523; 97535; 97167; G0257; J1644 ×5; J2270 ×2; J1815 ×2; J3490 ×15; J2405; J7030 ×2; C9803

== ENCOUNTER 2019-12-06 15:13 | Emergency (ER) | payer OTHER, MEDICARE ==
--- NOTE | 2019-12-06 15:41 | ER Document Report ---
ED Medical Screen (RME) - General Chief Complaint: Abdominal Pain Stated Complaint: EIPGASTRIC PAIN Time Seen by Provider: 12/06/19 15:34 Primary Care Provider: CHRISTA,JEAN [Primary Care Provider] - Follow up as needed Notes: Patient presents complaining of abdominal pain with abdominal distention for the past 8 days. Patient denies any fever, nausea vomiting or diarrhea. Patient denies any urinary symptoms. Patient states that he is a dialysis patient and missed dialysis yesterday due to how he was feeling. I have greeted and performed a rapid initial assessment of this patient. A comprehensive ED assessment and evaluation of the patient, analysis of test results and completion of the medical decision making process will be conducted by additional ED providers. TRAVEL OUTSIDE OF THE [place] IN LAST 30 DAYS: No - Related Data Allergies/Adverse Reactions: codeine Adverse Reaction (Intermediate, Verified 12/06/19 15:33) Past Medical History - Past Medical History Cardiac Medical History: Reports: Hx Congestive Heart Failure, Hx Heart Attack - X2 WITH STENTS 2004, 2009, Hx Hypercholesterolemia, Hx Hypertension Denies: Hx Atrial Fibrillation, Hx Coronary Artery Disease, Hx DVT, Hx Pulmonary Embolism Pulmonary Medical History: Reports: Hx COPD, Hx Pneumonia, Hx Respiratory Failure Denies: Hx Asthma, Hx Bronchitis Neurological Medical History: Denies: Hx Cerebrovascular Accident, Hx Seizures Endocrine Medical History: Reports: Hx Diabetes Mellitus Type 2. Denies: Hx Diabetes Mellitus Type 1, Hx Hyperthyroidism, Hx Hypothyroidism Renal/ Medical History: Reports: Hx Benign Prostatic Hyperplasia, Hx End Stage Renal Disease, Hx Peritoneal Dialysis GI Medical History: Reports: Hx Diverticulitis. Denies: Hx Cirrhosis, Hx Hepatitis Musculoskeltal Medical History: Denies Hx Arthritis, Denies Hx Gout Skin Medical History: Denies Hx Eczema, Denies Hx Psoriasis Psychiatric Medical History: Reports: Hx Depression Infectious Medical History: Reports: Hx C-Diff. Denies: Hx Hepatitis Past Surgical History: Reports: Hx Abdominal Surgery - meckels diverticulum, Hx Cardiac Catheterization, Hx Coronary Stent - X2, Other - Small bowel resection; adhesion lysis; peritoneal dialysis access - Immunizations Hx Diphtheria, Pertussis, Tetanus Vaccination: Yes Physical Exam - Vital signs Vitals: Temp Pulse Resp BP Pulse Ox 98.3 F 74 20 152/58 H 98 12/06/19 15:16 12/06/19 15:16 12/06/19 15:16 12/06/19 15:16 12/06/19 15:16 - Abdominal Inspection: Other - Abdominal distention Distension: Distended Tenderness: Tender Course - Vital Signs Vital signs: Temp Pulse Resp BP Pulse Ox 98.3 F 74 20 152/58 H 98 12/06/19 15:16 12/06/19 15:16 12/06/19 15:16 12/06/19 15:16 12/06/19 15:16 Doctor's Discharge - Discharge [facility]errals: [facility] [[facility]] - Follow up as needed
[2019-12-06 16:59] LABS: ABSOLUTE BASOPHILS # (AUTO) 0.1 10^3/uL (0.0-0.2); ABSOLUTE EOSINOPHILS # (AUTO) 0.2 10^3/uL (0.0-0.6); HEMOGLOBIN 10.7 g/dL (13.5-17.0); TOTAL CELLS COUNTED % (AUTO) 100 %
--- NOTE | 2019-12-06 17:01 | RADIOLOGY REPORT (SQ) ---
EXAM DESCRIPTION: ABDOMEN 2 VIEWS IMAGES COMPLETED DATE/TIME: 12/06/2019 4:53 pm REASON FOR STUDY: abd distention COMPARISON: KUB 08/20/2019 NUMBER OF VIEWS: Two views. TECHNIQUE: Supine and erect/decubitus radiographic images of the abdomen acquired. LIMITATIONS: None. FINDINGS: FREE AIR: None. No abnormal gas collections. LUNG BASES: Clear. BOWEL GAS PATTERN: Nonobstructive pattern. No dilated loops or air fluid levels. CALCIFICATIONS: No suspicious calcifications. SOFT TISSUES: No gross mass or suggestion of organomegaly. HARDWARE: None in the abdomen. Left femoral neck hardware is partially visualized. BONES: No acute fracture. No worrisome bone lesions. OTHER: No other significant finding. IMPRESSION: NO RADIOGRAPHIC EVIDENCE FOR ACUTE ABDOMINAL DISEASE. TECHNICAL DOCUMENTATION: JOB ID: [id number] 2010 [employer]- All Rights Reserved Reading location - IP/workstation name: [email or web address]
[2019-12-06 17:08] LABS: ALBUMIN 4.1 g/dL (3.5-5.0); ALKALINE PHOSPHATASE 103 U/L (38-126); ANION GAP 14 (5-19); ASPARTATE AMINO TRANSFERASE 23 U/L (17-59); BILIRUBIN,DIRECT 0.8 mg/dL (0.0-0.4); BILIRUBIN,TOTAL 0.8 mg/dL (0.2-1.3); BLOOD UREA NITROGEN 43 mg/dL (7-20); CALCIUM 9.3 mg/dL (8.4-10.2); CARBON DIOXIDE 30 mmol/L (22-30); CHLORIDE 97 mmol/L (98-107); GLUCOSE 219 mg/dL (75-110); POTASSIUM 4.5 mmol/L (3.6-5.0); TOTAL PROTEIN 7.2 g/dL (6.3-8.2)
[2019-12-06 17:09] LABS: ABSOLUTE MONOCYTES (AUTO) 0.7 10^3/uL (0.1-1.4); ABSOLUTE NEUT (AUTO) 4.2 10^3/uL (1.7-8.2); BASOPHILS % (AUTO) 1.6 % (0-2); EOSINOPHILS % (AUTO) 2.7 % (0-6); HEMATOCRIT 32.3 % (37.9-51.0); MEAN CORPUSCULAR HEMOGLOBIN 31.7 pg (27.0-33.4); MEAN CORPUSCULAR HGB CONC 33.2 g/dL (32.0-36.0); MEAN CORPUSCULAR VOLUME 95 fl (80-97); MONOCYTES % (AUTO) 10.9 % (3-13); PLATELET COUNT 223 10^3/uL (150-450); RED BLOOD COUNT 3.38 10^6/uL (4.35-5.55); RED CELL DISTRIBUTION WIDTH 17.1 % (11.5-14.0); SEGMENTED NEUTROPHILS % (AUTO) 68.8 % (42-78); WHITE BLOOD COUNT 6.2 10^3/uL (4.0-10.5)
--- NOTE | 2019-12-06 17:29 | ER Document Report ---
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 IN LAST 30 DAYS: No - HPI Onset: Last week Onset/Duration: Sudden, Persistent, Worse Quality of pain: Achy Severity: Moderate Pain Level: 2 Associated symptoms: Weakness Exacerbated by: Food Relieved by: Denies Similar symptoms previously: Yes Recently seen / treated by doctor: No <SHIRA HA JR - Last Filed: 12/06/19 21:16> - General Chief Complaint: Abdominal Pain Stated Complaint: EIPGASTRIC PAIN Time Seen by Provider: 12/06/19 15:34 Primary Care Provider: [facility] [Primary Care Provider] - Follow up as needed Notes: DR HUGGINS NOTES 15 Nov 2019 Patient Name: CELIO WAGNER DMedical Record Number: [id number] Date of : 1950 Patient Status: Observation Attending Provider: NABIL HUGGINS Date: 11/15/19 15:22 Initialization Date: 11/15/19 15:22 Impression [facility] Discharge Date: 11/15/19 - Discharge Diagnosis(1) Generalized weakness(2) Multiple falls3) End stage renal disease on dialysis (4) Pain in urethral meatus(5) Anemia in chronic kidney disease (6) Hyperglycemia due to type 2 diabetes mellitus (7) HTN (hypertension) (8) Coronary artery disease (9) Chronic diastolic heart failure (10) Hypercholesterolemia 11) Degenerative disc disease, cervical (12) Degenerative disc disease, lumbar (13) Osteoarthritis of spine at multiple levels (14) Gastroesophageal reflux disease (15) Depression (16) Prostatic hyperplasia (17) Hyperkalemia (18) Hyperphosphatemia - Assessment Summary: Patient will be admitted to the medical floor where he received routine supportive and symptomatic cares. Nephrology consultation will be obtained with Dr. Ba Evans for evaluation and treatment with end-stage renal disease and need for dialysis. guest services director consultation will be obtained for probable fpc facility placement post hospitalization. Physical therapy occup ational therapy and speech therapy consultations will be obtained. Patient will be monitored closely with CBCs, metabolic profiles and additional laboratory and/or radiographic evaluations as needed. He will receive morphine sulfate 2 to 4 mg IV every 2 hours as needed for pain and Ativan 1 mg IV every 4 hours as needed for anxiety or restlessness. He will be on a dialysis restricted cardiac and diabetic diet. Before meals and at bedtime Accu-Cheks will be performed with sliding scale insulin for hyperglycemia and a hypoglycemic protocol in place. Neuro checks will be performed every 4 hours. (PARMJIT CELESTE) 12/06/19 15:35 - Nursing Note by ARAM MAX Acct Num: [id number] : 1950 Patient Age: 69 Pt assisted to triage room via wheelchair. Pt sitting up to chair,Resp even & unlabored. Pt able to speak in complete sentences. Pt reports abd pain and bloating x 8 days. Pt denies nausea, vomiting, fever, or diarrhea. Pt reports being HD pt and reports did not go to dialysis on Sunday. JOHN Chavez present for triage. ED Medical Screen (Scott notes) - General Chief Complaint: Abdominal Pain Stated Complaint: EIPGASTRIC PAIN Time Seen by Provider: 12/06/19 15:34 [facility] Provider: [facility] [Primary [facility]] - Follow up as needed Notes: Patient presents complaining of abdominal pain with abdominal distention for the past 8 days. Patient denies any fever, nausea vomiting or diarrhea. Patient denies any urinary symptoms. Patient states that he is a dialysis patient and missed dialysis yesterday due to how he was feeling. MY NOTES today 69-year-old male arrives with chief complaint of 8 days of diffuse abdominal pain with status post laparoscopy 5 years ago because of abdominal adhesions. Patient reports his last bowel movement was yesterday and this was normal. Patient denies any trauma or abuse.Patient is a ESRD on dialysis Pt reports he no longer makes urine. Patient has a history also of C. difficile and vasovagal hyper phosphate hypocalcemia low magnesium hypokalemia anemia peritonitis COPD hypertension obesity acute urinary retention CHF hypertension and sepsis in the past.. (SHIRA HA JR) - Related Data Allergies/Adverse Reactions: codeine Adverse Reaction (Intermediate, Verified 12/06/19 15:33) Past Medical History - General Information source: Patient - Social History Smoking Status: Former Smoker Cigarette use (# per day): No Chew tobacco use (# tins/day): No Smoking Education Provided: No Frequency of alcohol use: None Drug Abuse: None Lives with: Family Family History: Reviewed & Not Pertinent, CAD, DM, Hypertension Patient has suicidal ideation: No Patient has homicidal ideation: No - Past Medical History Cardiac Medical History: Reports: Hx Congestive Heart Failure, Hx Heart Attack - X2 WITH STENTS 2004, 2009, Hx Hypercholesterolemia, Hx Hypertension Denies: Hx Atrial Fibrillation, Hx Coronary Artery Disease, Hx DVT, Hx Pulmonary Embolism Pulmonary Medical History: Reports: Hx COPD, Hx Pneumonia, Hx Respiratory Failure Denies: Hx Asthma, Hx Bronchitis Neurological Medical History: Denies: Hx Cerebrovascular Accident, Hx Seizures Endocrine Medical History: Reports: Hx Diabetes Mellitus Type 2. Denies: Hx Diabetes Mellitus Type 1, Hx Hyperthyroidism, Hx Hypothyroidism Renal/ Medical History: Reports: Hx Benign Prostatic Hyperplasia, Hx End Stage Renal Disease, Hx Peritoneal Dialysis GI Medical History: Reports: Hx Diverticulitis. Denies: Hx Cirrhosis, Hx Hepatitis Musculoskeletal Medical History: Denies Hx Arthritis, Denies Hx Gout Skin Medical History: Denies Hx Eczema, Denies Hx Psoriasis Psychiatric Medical History: Reports: Hx Depression Infectious Medical History: Reports: Hx C-Diff. Denies: Hx Hepatitis Past Surgical History: Reports: Hx Abdominal Surgery - meckels diverticulum, Hx Cardiac Catheterization, Hx Coronary Stent - X2, Other - Small bowel resection; adhesion lysis; peritoneal dialysis access - Immunizations Hx Diphtheria, Pertussis, Tetanus Vaccination: Yes Hx Pneumococcal Vaccination: 03/26/18 <SHIRA HA JR - Last Filed: 12/06/19 21:16> Review of Systems - Review of Systems Constitutional: See HPI, Weakness EENT: No symptoms reported - Septal Cardiovascular: No symptoms reported Respiratory: No symptoms reported Gastrointestinal: See HPI, Abdomen distended, Abdominal pain Genitourinary: No symptoms reported Male Genitourinary: No symptoms reported Musculoskeletal: No symptoms reported Skin: No symptoms reported Hematologic/Lymphatic: No symptoms reported Neurological/Psychological: No symptoms reported <SHIRA HA JR - Last Filed: 12/06/19 21:16> Physical Exam - Vital signs Interpretation: Normal - General General appearance: Alert - HEENT Head: Normocephalic, Atraumatic Eyes: Normal Pupils: PERRL Nasal: Normal Mouth/Lips: Normal Mucous membranes: Normal Pharynx: Normal Neck: Normal - Follow-up - Respiratory Respiratory status: No respiratory distress Chest status: Nontender Breath sounds: Normal Chest palpation: Normal - Cardiovascular Rhythm: Regular Heart sounds: Normal auscultation Murmur: No - Abdominal Inspection: Morbidly Obese Distension: No distension Bowel sounds: Hypoactive Tenderness: Tender Organomegaly: No organomegaly - Rectal Prostate: Other - deferred - Genitourinary Scrotum: Other - deferred - Back Back: Normal - Extremities General upper extremity: Normal inspection General lower extremity: Normal inspection - Neurological Neuro grossly intact: Yes Cognition: Normal Orientation: AAOx4 [place] Coma Scale Eye Opening: Spontaneous [place] Coma Scale Verbal: Oriented [place] Coma Scale Motor: Obeys Commands Long Coma Scale Total: 15 Speech: Normal Motor strength normal: LUE, RUE, LLE, RLE Sensory: Normal - Psychological Associated symptoms: Normal affect - Skin Skin Temperature: Warm Skin Moisture: Dry <SHIRA HA JR - Last Filed: 12/06/19 21:16> - Vital signs Vitals: Temp Pulse Resp BP Pulse Ox 98.3 F 74 20 152/58 H 98 12/06/19 15:16 12/06/19 15:16 12/06/19 15:16 12/06/19 15:16 12/06/19 15:16 Course - Laboratory Result Diagrams: 12/06/19 16:40 12/06/19 16:40 <PARMJIT CELESTE - Last Filed: 12/06/19 20:41> - Laboratory Result Diagrams: 12/06/19 16:40 12/06/19 16:40 - Diagnostic Test Radiology reviewed: Reports reviewed <SHIRA HA JR - Last Filed: 12/06/19 21:16> - Vital Signs Vital signs: Temp Pulse Resp BP Pulse Ox 98.3 F 72 16 141/55 H 100 12/06/19 15:16 12/06/19 18:35 12/06/19 18:35 12/06/19 18:35 12/06/19 18:35 - Laboratory Laboratory results interpreted by me: 12/06/19 12/06/19 16:40 16:40 RBC 3.38 L Hgb 10.7 L Hct 32.3 L RDW 17.1 H Chloride 97 L BUN 43 H Creatinine 6.62 H Est GFR ( Amer) 10 L Est GFR (MDRD) Non-Af 8 L Glucose 219 H Direct Bilirubin 0.8 H Critical Care Note <SHIRA HA JR - Last Filed: 12/06/19 21:16> - Critical Care Note Comments: CT scan with small right pleural effusion atelectasis and ascites in abdomen pelvis and also atherosclerosis and patient has edema subcutaneous and bladder wall thickening diverticulosis and kidney cysts no SBO (SHIRA HA JR) Discharge <PARMJIT CELESTE - Last Filed: 12/06/19 20:41> <SHIRA HA JR - Last Filed: 12/06/19 21:16> - Discharge Clinical Impression: Abdominal pain Qualifiers: Abdominal location: periumbilical Qualified Code(s): R10.33 - Periumbilical pain Ascites Qualifiers: Ascites type: other type Qualified Code(s): R18.8 - Other ascites Condition: Good Disposition: HOME, SELF-CARE Additional Instructions: Follow-up with personal doctor; return to ER as needed; will need to talk to personal doctor about a outpatient ascites tap with ultrasound-guided needle. [facility]errals: [facility] [[facility]] - Follow up as needed
[2019-12-06] MEDS ORDERED: MORPHINE SULFATE 10 MG/ML INJ IV ONE (17:37)
[2019-12-06] MEDS ORDERED: PROMETHAZINE HCL INJ 25 MG/1 ML VIAL IM ONE (17:37)
[2019-12-06] MEDS ORDERED: MORPHINE SULFATE 10 MG/ML INJ IM ONE (17:59)
--- NOTE | 2019-12-06 21:07 | RADIOLOGY REPORT (SQ) ---
EXAM DESCRIPTION: CT abdomen and pelvis without contrast CLINICAL HISTORY: 69 years Male, abd pain COMPARISON: CT abdomen and pelvis 10/01/2018 TECHNIQUE: Axial images of the abdomen and pelvis were performed without the use of intravenous contrast, with sagittal and coronal reformatted images. This exam was performed according to our departmental dose-optimization program which includes use of Automated Exposure Control, adjustment of the mA and/or kV according to patient size and/or use of iterative reconstruction technique. FINDINGS: There is a small right pleural effusion with mild right basilar atelectasis. There is a large amount of ascites in the abdomen or pelvis. The amount of ascites has increased considerably, as compared with the prior CT scan. There are atherosclerotic changes involving the abdominal aorta, but there is no aneurysm. There is subcutaneous edema. There is possible urinary bladder wall thickening, a finding that was also on the prior scan. There is diverticulosis. There are several small probably cystic lesions in the kidneys bilaterally. A couple of right-sided lesions appear hyperdense, probably hyperdense cysts. No evidence of bowel obstruction. There is no significant radiographic abnormality of the liver, spleen, pancreas or adrenal glands. IMPRESSION: Small right pleural effusion with mild right basilar atelectasis. Large amount of ascites in the abdomen and pelvis. Subcutaneous edema. Probable hyperdense renal cysts. Correlation with nonemergent renal ultrasound would be helpful, to confirm that these are cysts, and not solid lesions. Other findings as described.
[2019-12-06 22:21] VITALS: BP 140/78
--- NOTE | 2019-12-08 02:53 | EKG REPORT ---
SEVERITY:- ABNORMAL ECG - SINUS RHYTHM MULTIFORM VENTRICULAR PREMATURE COMPLEXES RIGHT AXIS DEVIATION BORDERLINE T ABNORMALITIES, DIFFUSE LEADS : Confirmed by: Danis Cosme MD 08-Dec-2019 02:52:44
== END 2019-12-06 22:23 | disposition home or self-care (01) ==
LOC: ER 15:13
DX: I13.2 Hypertensive heart and chronic kidney disease with heart failure and with stage 5 chronic kidney disease, or end stage renal disease (principal); E11.22 Type 2 diabetes mellitus with diabetic chronic kidney disease; N18.6 End stage renal disease; I50.32 Chronic diastolic (congestive) heart failure; N36.8 Other specified disorders of urethra; E11.65 Type 2 diabetes mellitus with hyperglycemia; M50.30 Other cervical disc degeneration, unspecified cervical region; M51.36 Other intervertebral disc degeneration, lumbar region; M47.9 Spondylosis, unspecified; F32.9 Major depressive disorder, single episode, unspecified; R53.1 Weakness; N40.0 Benign prostatic hyperplasia without lower urinary tract symptoms; E87.6 Hypokalemia; E83.39 Other disorders of phosphorus metabolism; Z99.2 Dependence on renal dialysis; R10.33 Periumbilical pain; R18.8 Other ascites; R10.9 Unspecified abdominal pain; R10.13 Epigastric pain; Z88.8 Allergy status to other drugs, medicaments and biological substances; Z87.891 Personal history of nicotine dependence; Z91.81 History of falling; I25.10 Atherosclerotic heart disease of native coronary artery without angina pectoris; E78.00 Pure hypercholesterolemia, unspecified
CPT/HCPCS: 93005; 99285; 96372; 36415; 83690; 85025; 80053; 74019; 74176; 93010; J2270; J2550

== ENCOUNTER 2020-01-01 09:38 | Emergency (ER) | payer OTHER, MEDICARE ==
[2020-01-01 11:49] LABS: APPEARANCE,URINE TURBID; BILIRUBIN,URINE NEGATIVE (NEGATIVE); COLOR,URINE YELLOW; GLUCOSE, URINE NEGATIVE (NEGATIVE); KETONES,URINE NEGATIVE (NEGATIVE); PROTEIN,URINE 100 mg/dL (NEGATIVE); URINE SPECIFIC GRAVITY 1.016; UROBILINOGEN,URINE NEGATIVE mg/dL (<2.0)
--- NOTE | 2020-01-01 13:11 | ER Document Report ---
ED GI/ - General Chief Complaint: Urinary Retention Stated Complaint: UNABLE TO URINATE Time Seen by Provider: 01/01/20 10:47 Primary Care Provider: CHRISTA,JEAN [Primary Care Provider] - Follow up as needed Notes: 69-year-old man presenting to the emergency department with a history of unable to urinate since last night. He states that he has a known history of BPH and chronic urinary tract infection. Presently he is not being followed closely by a urologist. He denies fever, nausea vomiting or associated back pain. He does complain of discomfort secondary to the inability to urinate. TRAVEL OUTSIDE OF THE [place] IN LAST 30 DAYS: No - Related Data Allergies/Adverse Reactions: codeine Adverse Reaction (Intermediate, Verified 12/06/19 15:33) Past Medical History - Social History Smoking Status: Never Smoker Frequency of alcohol use: None Drug Abuse: None Family History: Reviewed & Not Pertinent, CAD, DM, Hypertension - Past Medical History Cardiac Medical History: Reports: Hx Congestive Heart Failure, Hx Heart Attack - X2 WITH STENTS 2004, 2009, Hx Hypercholesterolemia, Hx Hypertension Denies: Hx Atrial Fibrillation, Hx Coronary Artery Disease, Hx DVT, Hx Pulmonary Embolism Pulmonary Medical History: Reports: Hx COPD, Hx Pneumonia, Hx Respiratory Failure Denies: Hx Asthma, Hx Bronchitis Neurological Medical History: Denies: Hx Cerebrovascular Accident, Hx Seizures Endocrine Medical History: Reports: Hx Diabetes Mellitus Type 2. Denies: Hx Diabetes Mellitus Type 1, Hx Hyperthyroidism, Hx Hypothyroidism Renal/ Medical History: Reports: Hx Benign Prostatic Hyperplasia, Hx End Stage Renal Disease, Hx Peritoneal Dialysis GI Medical History: Reports: Hx Diverticulitis. Denies: Hx Cirrhosis, Hx Hepatitis Musculoskeletal Medical History: Denies Hx Arthritis, Denies Hx Gout Skin Medical History: Denies Hx Eczema, Denies Hx Psoriasis Psychiatric Medical History: Reports: Hx Depression Infectious Medical History: Reports: Hx C-Diff. Denies: Hx Hepatitis Past Surgical History: Reports: Hx Abdominal Surgery - meckels diverticulum, Hx Cardiac Catheterization, Hx Coronary Stent - X2, Other - Small bowel resection; adhesion lysis; peritoneal dialysis access - Immunizations Hx Diphtheria, Pertussis, Tetanus Vaccination: Yes Hx Pneumococcal Vaccination: 03/26/18 Review of Systems - Review of Systems Notes: Constitutional: Negative for fever. HENT: Negative for sore throat. Eyes: Negative for visual changes. Cardiovascular: Negative for chest pain. Respiratory: Negative for shortness of breath. Gastrointestinal: Negative for abdominal pain, vomiting or diarrhea. Genitourinary: See HPI Musculoskeletal: Negative for back pain. Skin: Negative for rash. Neurological: Negative for headaches, weakness or numbness. 10 point ROS negative except as marked above and in HPI. Physical Exam - Vital signs Vitals: Temp Pulse Resp BP Pulse Ox 97.6 F 75 20 149/51 H 96 01/01/20 09:45 01/01/20 09:45 01/01/20 09:45 01/01/20 09:45 01/01/20 09:45 - Notes Notes: PHYSICAL EXAMINATION: Physical Exam: General: Well-nourished well-developed in no acute distress HEENT: NC/AT, pupils equal round and reactive to light, MM moist,nares clear, oropharynx clear, airway patent Neck: supple, no adenopathy, no masses. Good range of motion Lungs: clear, no wheezing, no rales no rhonchi CVS: Regular rate and rhythm no murmur gallop or rub Abdomen: Soft, active, suprapubic tenderness, bladder distention, no masses, no hepatosplenomegaly Ext: No edema, clubbing or cyanosis. Neuro: Alert and responsive, moving all 4 extremities on command, cranial nerves intact, no focal findings Skin: Intact no open lesions, no rash PSYCH: Normal mood, normal affect. Course - Re-evaluation Re-evalutation: 01/01/20 13:13 Moraes catheter is placed patient has a return of urine which is a thick cloudy milky appearing fluid. Catheter went in without difficulty, urinalysis reveals WBCs greater than 182, 3+ bacteria nitrite negative with hematuria. Patient is going to be treated with antibiotics, cefdinir milligrams twice daily. I have asked him to return to the hospital if he runs a fever or if he is having nausea and vomiting and inability to keep down the medications. The patient acknowledges understanding of this plan and is ready for discharge. - Vital Signs Vital signs: Temp Pulse Resp BP Pulse Ox 97.6 F 75 20 149/51 H 96 01/01/20 09:56 01/01/20 09:45 01/01/20 09:45 01/01/20 09:45 01/01/20 09:45 - Laboratory Laboratory results interpreted by me: 10/08/20 11:20 Urine Protein 100 H Urine Blood MODERATE H Leukocyte Esterase Rfl MODERATE H 01/01/20 13:15 I have reviewed laboratory data and used this information for the treatment decisions regarding the patient. Discharge - Discharge Clinical Impression: Urinary retention Benign prostatic hyperplasia Qualifiers: Lower urinary tract symptom presence: unspecified whether lower urinary tract symptoms present Qualified Code(s): N40.0 - Benign prostatic hyperplasia without lower urinary tract symptoms UTI (urinary tract infection) Qualifiers: Urinary tract infection type: site unspecified Hematuria presence: with hematuria Qualified Code(s): N39.0 - Urinary tract infection, site not specified; R31.9 - Hematuria, unspecified Condition: Good Disposition: HOME, SELF-CARE Instructions: Urinary Tract Infection ([facility]), Urinary Retention ([facility]), Moraes Cat heter Care ([facility]) Additional Instructions: You are seen in the emergency department today with urinary retention and inability to control your urine output. A Moraes catheter was placed, urine was positive for infection. You are given a prescription for cefdinir 300 mg twice daily for 10 full days. Please follow-up in the emergency department as needed. The Moraes catheter can be discontinued after 48 hours. If your having further difficulties or concerns you may return to the emergency department for further evaluation and treatment. If you develop a fever or if you are having worsening symptoms and unable to keep down your medications please return to the hospital for further evaluation and treatment. HOME CARE INSTRUCTIONS & INFORMATION: Thank you for choosing us for your medical needs. We hope you're satisfied with the care you received. After you leave, you must properly care for your problem and, at the same time, observe its progress. Any condition can change. Some illnesses can change rapidly over hours or days. If your condition worsens, return to the Emergency Department or see your physician promptly. ABOUT YOUR X-RAYS AND EKG'S: If you had an EKG or X-rays taken, they have been read by the Emergency Physician. The X-rays and EKG's will also be read by a Radiologist or Firer Retort within 24 hours. If discrepancies are noted, you will be notified by telephone. Please be certain the ED has a correct telephone number & address where you can be reached. Also, realize that some fractures or abnormalities do not show up on initial X-rays. If your symptoms continue, see your physician. ABOUT YOUR LABORATORY TEST: If you had laboratory tests, the results have been reviewed by the Emergency Physician. Some test results (for example cultures) may not be available for several days. You will be contacted if any test result shows you need additional treatment. Please be certain the ED has a correct telephone number and address where you can be reached. ABOUT YOUR MEDICATIONS: You will receive instructions on how to take your medicine on the prescription label you receive. Additional information may be provided by the Pharmacy. If you have questions afterwards, call the ED for clarification or further instructions. Some prescribed medications may cause drowsiness. Do not perform tasks such as driving a car or operating machinery without consulting your Pharmacist. If you feel you need a refill of pain medication, your condition will need re-evaluation. Please do not call for a refill of any medication. ABOUT YOUR SIGNATURE: Signature of this document acknowledges to followin. Understanding that you received emergency treatment and that you may be released before al medical problems are known or treated. Please be certain the ED has a correct phone number & address where you can be reached. 2. Acknowledgement that you will arrange for follow-up care as recommended. 3. Authorization for the Emergency Physician to provide information to your follow-up Physician in order to maximize your care. AT ANY TIME, IF YOUR SYMPTOMS CHANGE SIGNIFICANTLY OR WORSEN OR YOU DEVELOP NEW SYMPTOMS, RETURN TO THE EMERGENCY DEPARTMENT IMMEDIATELY FOR RE-EVALUATION. OUR GOAL IS TO PROVIDE EXCELLENT MEDICAL CARE! WE HOPE THAT WE HAVE MET YOUR EXPECTATIONS DURING YOUR EMERGENCY DEPARTMENT VISIT AND THAT YOU FEEL YOU HAVE RECEIVED EXCELLENT CARE! Prescriptions: Cefdinir 300 mg PO BID #20 capsule Referrals: [facility] [Primary [facility]] - Follow up as needed
[2020-01-01 13:50] VITALS: BP 120/48
== END 2020-01-01 13:51 | disposition home or self-care (01) ==
LOC: ER 09:38
DX: N40.1 Benign prostatic hyperplasia with lower urinary tract symptoms (principal); R33.8 Other retention of urine; N39.0 Urinary tract infection, site not specified; R31.9 Hematuria, unspecified; I10 Essential (primary) hypertension; E11.9 Type 2 diabetes mellitus without complications
CPT/HCPCS: 36415; 51702; 81001; 87086; 99283

== ENCOUNTER 2020-01-08 10:34 | Emergency (ER) | payer OTHER, MEDICARE ==
--- NOTE | 2020-01-08 11:47 | ER Document Report ---
ED Medical Screen (RME) - General Stated Complaint: URINATION PROBLEM Time Seen by Provider: 01/08/20 11:39 Primary Care Provider: CHRISTA,JEAN [Primary Care Provider] - Follow up as needed TRAVEL OUTSIDE OF THE [place] IN LAST 30 DAYS: No - HPI Notes: 01/08/20 11:49 69-year-old male to the emergency department with complaints of urinary retention since 8 PM last night. He does have a history of BPH and chronic urinary tract infections. He was seen in the department on December 31 for the same. He states he took his Moraes out on Sunday. He does not have a urologist. He is followed [facility] the [facility]. He does not think that there is a consult out for urology for him. He is on 2 L of oxygen continuously. He states he has a lot of abdominal pain and discomfort. I advised charge nurse of the patient with urinary retention and we will place the patient in 31 so he can get a catheter. I performed a brief medical screening exam on the patient determined that the patient needs further evaluation and management by main side provider. I have placed initial orders to help expedite care. - Related Data Allergies/Adverse Reactions: codeine Adverse Reaction (Intermediate, Verified 01/08/20 11:44) Past Medical History - Past Medical History Cardiac Medical History: Reports: Hx Congestive Heart Failure, Hx Heart Attack - X2 WITH STENTS 2004, 2009, Hx Hypercholesterolemia, Hx Hypertension Denies: Hx Atrial Fibrillation, Hx Coronary Artery Disease, Hx DVT, Hx Pulmonary Embolism Pulmonary Medical History: Reports: Hx COPD, Hx Pneumonia, Hx Respiratory Failure Denies: Hx Asthma, Hx Bronchitis Neurological Medical History: Denies: Hx Cerebrovascular Accident, Hx Seizures Endocrine Medical History: Reports: Hx Diabetes Mellitus Type 2. Denies: Hx Diabetes Mellitus Type 1, Hx Hyperthyroidism, Hx Hypothyroidism Renal/ Medical History: Reports: Hx Benign Prostatic Hyperplasia, Hx End Stage Renal Disease, Hx Peritoneal Dialysis GI Medical History: Reports: Hx Diverticulitis. Denies: Hx Cirrhosis, Hx Hepatitis Musculoskeltal Medical History: Denies Hx Arthritis, Denies Hx Gout Skin Medical History: Denies Hx Eczema, Denies Hx Psoriasis Psychiatric Medical History: Reports: Hx Depression Infectious Medical History: Reports: Hx C-Diff. Denies: Hx Hepatitis Past Surgical History: Reports: Hx Abdominal Surgery - meckels diverticulum, Hx Cardiac Catheterization, Hx Coronary Stent - X2, Other - Small bowel resection; adhesion lysis; peritoneal dialysis access - Immunizations Hx Diphtheria, Pertussis, Tetanus Vaccination: Yes Physical Exam - Vital signs Vitals: Temp Pulse Resp BP Pulse Ox 97.9 F 86 20 167/59 H 95 01/08/20 10:44 01/08/20 10:44 01/08/20 10:44 01/08/20 10:44 01/08/20 10:44 Course - Vital Signs Vital signs: Temp Pulse Resp BP Pulse Ox 97.9 F 86 20 167/59 H 95 01/08/20 11:44 01/08/20 10:44 01/08/20 10:44 01/08/20 10:44 01/08/20 10:44 Doctor's Discharge - Discharge Referrals: [facility] [Primary [facility]] - Follow up as needed
[2020-01-08] MEDS ORDERED: LIDOCAINE 2% URO-JET 5 ML KIT MM ONE (11:49)
[2020-01-08 13:17] LABS: APPEARANCE,URINE TURBID; BILIRUBIN,URINE NEGATIVE (NEGATIVE); COLOR,URINE YELLOW; GLUCOSE, URINE 50 mg/dL (NEGATIVE); KETONES,URINE NEGATIVE (NEGATIVE); PROTEIN,URINE 100 mg/dL (NEGATIVE); URINE SPECIFIC GRAVITY 1.016; UROBILINOGEN,URINE NEGATIVE mg/dL (<2.0)
--- NOTE | 2020-01-08 14:45 | ER Document Report ---
ED General - General Chief Complaint: Inability to Void Stated Complaint: URINATION PROBLEM Time Seen by Provider: 01/08/20 11:39 Primary Care Provider: [facility] [[facility]] - Follow up as needed Mode of Arrival: Ambulatory Information source: Patient Notes: Patient is a 69-year-old male who comes in today with urinary retention. History of BPH. States about 8:00 last evening was the last time he urinated spontaneously on his own. Comes in today with distended bladder and lower abdominal pain. He has no fevers or chills. No nausea or vomiting. He states that he is currently on antibiotics for his UTI. TRAVEL OUTSIDE OF THE [place] IN LAST 30 DAYS: No - Related Data Allergies/Adverse Reactions: codeine Adverse Reaction (Intermediate, Verified 01/08/20 11:44) Past Medical History - Social History Smoking Status: Former Smoker Chew tobacco use (# tins/day): No Frequency of alcohol use: None Drug Abuse: None Family History: Reviewed & Not Pertinent, CAD, DM, Hypertension Patient has homicidal ideation: No - Past Medical History Cardiac Medical History: Reports: Hx Congestive Heart Failure, Hx Heart Attack - X2 WITH STENTS 2004, 2009, Hx Hypercholesterolemia, Hx Hypertension Denies: Hx Atrial Fibrillation, Hx Coronary Artery Disease, Hx DVT, Hx Pulmonary Embolism Pulmonary Medical History: Reports: Hx COPD, Hx Pneumonia, Hx Respiratory Failure Denies: Hx Asthma, Hx Bronchitis Neurological Medical History: Denies: Hx Cerebrovascular Accident, Hx Seizures Endocrine Medical History: Reports: Hx Diabetes Mellitus Type 2. Denies: Hx Diabetes Mellitus Type 1, Hx Hyperthyroidism, Hx Hypothyroidism Renal/ Medical History: Reports: Hx Benign Prostatic Hyperplasia, Hx End Stage Renal Disease, Hx Peritoneal Dialysis GI Medical History: Reports: Hx Diverticulitis. Denies: Hx Cirrhosis, Hx Hepatitis Musculoskeletal Medical History: Denies Hx Arthritis, Denies Hx Gout Skin Medical History: Denies Hx Eczema, Denies Hx Psoriasis Psychiatric Medical History: Reports: Hx Depression Infectious Medical History: Reports: Hx C-Diff. Denies: Hx Hepatitis Past Surgical History: Reports: Hx Abdominal Surgery - meckels diverticulum, Hx Cardiac Catheterization, Hx Coronary Stent - X2, Other - Small bowel resection; adhesion lysis; peritoneal dialysis access - Immunizations Hx Diphtheria, Pertussis, Tetanus Vaccination: Yes Hx Pneumococcal Vaccination: 03/26/18 Review of Systems - Review of Systems Notes: Constitutional: No fevers. No chills. EENT: No eye redness. No eye pain. No ear pain. No sore throat. Cardiovascular: No chest pain. No palpitations. Respiratory: No cough. No shortness of breath. No respiratory distress. Gastrointestinal: +abdominal pain. No nausea, vomiting, or diarrhea. Genitourinary: Positive for urinary retention Musculoskeletal: Atraumatic. No swelling. No deformities. Skin: No rash or lesions. Lymphatic: No swollen lymph nodes. Neurologic: No headache. No syncope. Psychiatric: No suicidal or homicidal ideation. Physical Exam - Vital signs Vitals: Temp Pulse Resp BP Pulse Ox 97.9 F 86 20 167/59 H 95 01/08/20 10:44 01/08/20 10:44 01/08/20 10:44 01/08/20 10:44 01/08/20 10:44 - Notes Notes: General: Well-developed, well-nourished. In no acute distress. Non-toxic appearing. Cardiac: Well-perfused. Regular rate and rhythm. No murmurs, rubs, or gallops. Pulmonary: No respiratory distress. No cyanosis. Bilateral lung fiels are clear to auscultation. Abdominal: Non-distended. Non-rigid. Bowels sounds are present in all four quadrants. No guarding or rebound. HEENT: Head is atraumatic. Conjunctivae not reddened. No tearing. PERRL. EOMI. Orbits atraumatic. No periorbital swelling or erythema. Oropharynx is without erythema, swelling, or exudates. Neck: Supple. No adenopathy. No meningismus. Dermatologic: Warm with good turgor. No rash. Atraumatic. Chest: Atraumatic. No chest wall tenderness to palpation. Musculoskeletal: Moves all extremities well. No range of motion deficits. no muscular or joint tenderness. No paraspinal muscle tenderness. no midline spinal tenderness or step-off. Genitourinary: Examination deferred Neurologic: No gross neurologic deficits. Psychiatric: Normal mood. Course - Re-evaluation Re-evalutation: 01/08/20 14:42 Patient is nontoxic-appearing. Abdomen benign. Patient reports complete relief with the Moraes. Urine is infected but patient states that he is on antibiotics already. UA is reflexive to culture so that should be helpful if any changes needed for his urinary infection. [facility]. Will suggest recheck in 1 to 2 days with his primary in anticipation of removal of Moraes catheter. - Vital Signs Vital signs: Temp Pulse Resp BP Pulse Ox 97.9 F 86 20 167/59 H 95 01/08/20 11:44 01/08/20 10:44 01/08/20 10:44 01/08/20 10:44 01/08/20 10:44 - Laboratory Laboratory results interpreted by me: 01/08/20 12:34 Urine Protein 100 H Urine Glucose (UA) 50 H Urine Blood MODERATE H Leukocyte Esterase Rfl MODERATE H Discharge - Discharge Clinical Impression: Urinary retention UTI (urinary tract infection) Qualifiers: Urinary tract infection type: site unspecified Hematuria presence: without hematuria Qualified Code(s): N39.0 - Urinary tract infection, site not specified Condition: Good Disposition: HOME, SELF-CARE Instructions: Urinary Tract Infection ([facility]), Moraes Catheter Care ([facility]) Additional Instructions: Continue taking the antibiotics that you were prescribed for urinary tract infection. Prompt 24 to 48-hour follow-up with your primary care doctor required. If you develop fever, shaking chills, flank pain, or vomiting, you may return to the emergency room to be reassessed. Forms: Elevated Blood Pressure Referrals: [facility] [Primary [facility] Provider] - Follow up tomorrow
[2020-01-08] MEDS ORDERED: CEFTRIAXONE INJ 1000 MG VIAL IM ONE (14:46)
[2020-01-08] MEDS ORDERED: LIDOCAINE 1% INJ-PF (10 MG/ML) 30 ML SDV INJ ONE (14:46)
[2020-01-08 16:03] VITALS: BP 151/62
== END 2020-01-08 16:03 | disposition home or self-care (01) ==
LOC: ER 10:34
DX: R33.9 Retention of urine, unspecified (principal); N39.0 Urinary tract infection, site not specified; I10 Essential (primary) hypertension; I25.2 Old myocardial infarction; Z87.891 Personal history of nicotine dependence
CPT/HCPCS: 99284; 96372; 51702; 36415; 87086; 81001; J3490 ×2; J0696

== ENCOUNTER 2020-01-26 10:19 | Day surgery (SDC) | payer OTHER, MEDICARE ==
[2020-01-26] MEDS ORDERED: PROPOFOL INJ 200 MG/20 ML VIAL IV ONE (10:36)
--- NOTE | 2020-01-26 12:34 | Operative Report ---
Operative Report DATE OF SURGERY: 01/26/20 Operative Report: The risk, benefits and alternatives of the procedure including the risks of bleeding, perforation requiring surgery have been explained to the patient in detail and informed consent has been obtained. Patient is placed in left, lateral decubital position. Timeout was called. Propofol medication is administered. Rectal examination is done which did not reveal any masses, tears or fissures. An Olympus videoscope was introduced into the patient's rectum. Scope was then carefully advanced all the way to the cecum. Cecum was identified by the usual anatomical landmarks of the ileocecal valve as well as the appendiceal office. Photodocumentation is obtained. Scope was then sequentially pulled back via the various segments of the colon including the ascending colon, hepatic flexure, transverse colon, splenic flexure, descending colon finding to the rectosigmoid portions of the colon. Retroflexion maneuver is performed. PREOPERATIVE DIAGNOSIS: Personal history of polyp POSTOPERATIVE DIAGNOSIS: Cecal polyp removed via snare polypectomy but not able to be retrieved. Descending colon polyp removed via snare polypectomy but retrieved. Diverticulosis without any evidence of diverticulitis. Internal hemorrhoids OPERATION: Colonoscopy with snare polypectomy SURGEON: CHELSEA CANNON ANESTHESIA: LMAC TISSUE REMOVED OR ALTERED: As noted above. COMPLICATIONS: None. ESTIMATED BLOOD LOSS: None. INTRAOPERATIVE FINDINGS: As noted above. PROCEDURE: Patient tolerated the procedure well. No immediate postprocedure complications are noted. Patient is discharged in good condition. Discharge date 01/26/2020. Discharge diet: Regular. Discharge activity: Regular. 2 to 3-week follow-up to discuss findings. Patient is instructed to call the office or proceed to the emergency room should there be any further problems or questions. Wait on the pathology. 3 to 5-year surveillance colonoscopy.
[2020-01-26] MEDS ORDERED: LIDOCAINE 2% INJ-PF (100 MG/5 ML) SYRINGE ONE (12:38)
[2020-01-26] MEDS ORDERED: ONDANSETRON HCL INJ/PF 4 MG/2 ML SDV ONE (12:44)
[2020-01-26] MEDS ORDERED: MORPHINE SULFATE 10 MG/ML INJ IV PRN (13:06)
[2020-01-26] MEDS ORDERED: PROMETHAZINE HCL INJ 25 MG/1 ML VIAL IV PRN (13:06)
[2020-01-26] MEDS ORDERED: DIPHENHYDRAMINE HCL 50 MG/ML VIAL IV PRN (13:06)
[2020-01-26] MEDS ORDERED: FENTANYL CITRATE INJ/PF 100 MCG/2 ML AMPUL IV PRN ×3 (13:06)
[2020-01-26] MEDS ORDERED: MEPERIDINE HCL/PF INJ 25 MG/1 ML DISP.SYRIN IV PRN (13:06)
[2020-01-26 13:52] VITALS: BP 129/56
== END 2020-01-26 13:50 | disposition home or self-care (01) ==
LOC: OROUT 10:19
PROVIDERS: ATTEND Internal Medicine Gastroenterology
DX: D12.4 Benign neoplasm of descending colon (principal); K64.8 Other hemorrhoids; K57.90 Diverticulosis of intestine, part unspecified, without perforation or abscess without bleeding; J44.9 Chronic obstructive pulmonary disease, unspecified; I11.0 Hypertensive heart disease with heart failure; I50.9 Heart failure, unspecified; E11.9 Type 2 diabetes mellitus without complications; Z99.81 Dependence on supplemental oxygen; I25.2 Old myocardial infarction; Z03.818 Encounter for observation for suspected exposure to other biological agents ruled out; Z79.82 Long term (current) use of aspirin; Z79.899 Other long term (current) drug therapy; Z79.4 Long term (current) use of insulin
CPT/HCPCS: 45385; 82962; 87635; 88305 ×2; J2001; J2405; J2704; C9803

== ENCOUNTER 2020-02-12 03:57 | Emergency (ER) | payer OTHER, MEDICARE ==
[2020-02-12 05:19] LABS: ABSOLUTE BASOPHILS # (AUTO) 0.1 10^3/uL (0.0-0.2); ABSOLUTE EOSINOPHILS # (AUTO) 0.2 10^3/uL (0.0-0.6); ABSOLUTE LYMPHOCYTES (AUTO) 1.2 10^3/uL (0.5-4.7); ABSOLUTE NEUT (AUTO) 4.4 10^3/uL (1.7-8.2); BASOPHILS % (AUTO) 1.1 % (0-2); EOSINOPHILS % (AUTO) 2.9 % (0-6); HEMATOCRIT 32.5 % (37.9-51.0); HEMOGLOBIN 10.6 g/dL (13.5-17.0); LYMPHOCYTES % (AUTO) 17.9 % (13-45); MEAN CORPUSCULAR HEMOGLOBIN 32.5 pg (27.0-33.4); MEAN CORPUSCULAR HGB CONC 32.8 g/dL (32.0-36.0); MEAN CORPUSCULAR VOLUME 99 fl (80-97); MONOCYTES % (AUTO) 14.3 % (3-13); PLATELET COUNT 205 10^3/uL (150-450); RED BLOOD COUNT 3.28 10^6/uL (4.35-5.55); RED CELL DISTRIBUTION WIDTH 16.8 % (11.5-14.0); SEGMENTED NEUTROPHILS % (AUTO) 63.8 % (42-78); TOTAL CELLS COUNTED % (AUTO) 100 %; WHITE BLOOD COUNT 6.9 10^3/uL (4.0-10.5)
[2020-02-12 05:38] LABS: ALBUMIN 3.9 g/dL (3.5-5.0); ALKALINE PHOSPHATASE 210 U/L (38-126); ANION GAP 9 (5-19); ASPARTATE AMINO TRANSFERASE 20 U/L (17-59); BILIRUBIN,DIRECT 0.4 mg/dL (0.0-0.4); BILIRUBIN,TOTAL 0.5 mg/dL (0.2-1.3); BLOOD UREA NITROGEN 45 mg/dL (7-20); CALCIUM 8.8 mg/dL (8.4-10.2); CARBON DIOXIDE 30 mmol/L (22-30); CHLORIDE 104 mmol/L (98-107); CREATINE KINASE 69 U/L (55-170); GLUCOSE 134 mg/dL (75-110); POTASSIUM 4.3 mmol/L (3.6-5.0); TOTAL PROTEIN 6.8 g/dL (6.3-8.2)
[2020-02-12 05:50] LABS: CREATINE KINASE MB 5.02 ng/mL (<4.55)
[2020-02-12 05:53] LABS: TROPONIN I 0.052 ng/mL
--- NOTE | 2020-02-12 07:11 | ER Document Report ---
Entered by JOE GILL SCRIBE 02/12/20 0616 Acting as scribe for:SCOTT CLINTON MD ED General - General Chief Complaint: Chest Pain Stated Complaint: STOPS BREATHING WHEN FALLS ASLEEP Time Seen by Provider: 02/12/20 06:08 Primary Care Provider: CHRISTA,JEAN [Primary Care Provider] - Follow up as needed Mode of Arrival: Ambulatory Information source: Patient Notes: This 69-year-old male patient presents to the emergency department today with complaints of "waking up gasping for air". Patient reports that last night at least 10-12 times he had this sensation where he would wake up gasping for air. Patient states once he was awake he would feel back to baseline quite quickly and he does not feel short of breath when he is awake. Patient mentions a "spot on his lung" that hurts and points to the left anterior chest wall. The patient is on 2 L nasal cannula at home chronically. Here in the emergency room, the nasal cannula is actually at 1 L and his oxygen saturation is 99%. He appears quite comfortable. TRAVEL OUTSIDE OF THE [place] IN LAST 30 DAYS: No - Related Data Allergies/Adverse Reactions: codeine Adverse Reaction (Intermediate, Verified 02/12/20 04:12) HAY Allergy (Uncoded 02/12/20 04:12) HAY FEVER Allergy (Uncoded 02/12/20 04:12) Past Medical History - General Information source: Patient - Social History Smoking Status: Never Smoker Cigarette use (# per day): No Frequency of alcohol use: None Drug Abuse: None Lives with: Family Family History: Reviewed & Not Pertinent, CAD, DM, Hypertension - Past Medical History Cardiac Medical History: Reports: Hx Congestive Heart Failure, Hx Coronary Artery Disease, Hx Heart Attack - X2 WITH STENTS 2004, 2009, Hx Hyperchol esterolemia, Hx Hypertension Pulmonary Medical History: Reports: Hx COPD, Hx Pneumonia, Hx Respiratory Failure Endocrine Medical History: Reports: Hx Diabetes Mellitus Type 2 Renal/ Medical History: Reports: Hx Benign Prostatic Hyperplasia, Hx End Stage Renal Disease, Hx Hemodialysis - MWF GI Medical History: Reports: Hx Diverticulitis Psychiatric Medical History: Reports: Hx Depression Infectious Medical History: Reports: Hx C-Diff Past Surgical History: Reports: Hx Abdominal Surgery - meckels diverticulum, Hx Cardiac Catheterization, Hx Coronary Stent - X2 05, '10, Other - Small bowel resection; adhesion lysis; peritoneal dialysis access - Immunizations Hx Diphtheria, Pertussis, Tetanus Vaccination: Yes Hx Pneumococcal Vaccination: 03/26/18 Review of Systems - Review of Systems Constitutional: No symptoms reported EENT: No symptoms reported Cardiovascular: No symptoms reported Respiratory: See HPI. denies: Short of breath Gastrointestinal: No symptoms reported Genitourinary: No symptoms reported Male Genitourinary: No symptoms reported Musculoskeletal: No symptoms reported Skin: No symptoms reported Hematologic/Lymphatic: No symptoms reported Neurological/Psychological: No symptoms reported -: Yes All other systems reviewed and negative Physical Exam - Vital signs Vitals: Temp 97.8 F 02/12/20 04:13 - Notes Notes: Physical Exam: General: Alert, appears well. HEENT: Normocephalic. Atraumatic. PERRL. Extraocular movements intact. Oropharynx clear. Neck: Supple. Non-tender. Respiratory: No respiratory distress. Clear and equal breath sounds bilaterally. Left anterior precordial chest area there is an area of point tenderness with palpation. Cardiovascular: Regular rate and rhythm. Grade 1 systolic ejection murmur. Abdominal: Normal Inspection. Non-tender. No distension. Normal Bowel Sounds. Back: No gross abnormalities. Extremities: Moves all four extremities. Upper extremities: Normal inspection. Normal ROM. Lower extremities: 1+ lower extremity edema bilaterally. Normal ROM. Neurological: Normal cognition. AAOx4. Normal speech. Psychological: Normal affect. Normal Mood. Skin: Warm. Dry. Normal color. Course - Re-evaluation Re-evalutation: 02/12/20 09:59 Patient reports that he has fallen asleep and awakened 3 times now without having that sensation that he could not catch his breath. Advised him that I really have no idea what could have been going on because he wakes up feeling like he cannot catch her breath, but he is not coughing or gagging to suggest aspiration. - Vital Signs Vital signs: Temp Pulse Resp BP Pulse Ox 97.8 F 84 18 142/60 H 99 02/12/20 04:16 02/12/20 04:16 02/12/20 10:00 02/12/20 10:01 02/12/20 10:01 - Laboratory Result Diagrams: 02/12/20 04:58 02/12/20 04:58 Laboratory results interpreted by me: 11/02/12/20 02/12/20 04:58 04:58 04:58 RBC 3.28 L Hgb 10.6 L Hct 32.5 L MCV 99 H RDW 16.8 H [place] % (Auto) 14.3 H BUN 45 H Creatinine 3.82 H Est GFR ( Amer) 19 L Est GFR (MDRD) Non-Af 16 L Glucose 134 H Alkaline Phosphatase 210 H CK-MB (CK-2) 5.02 H - EKG Interpretation by Me EKG shows normal: Sinus rhythm, [place], Intervals, QRS Complexes. abnormal: ST-T Waves - Nonspecific inferior T abnormalities Rate: Normal - 73 Rhythm: NSR, PVC's [place]/QRS: Right axis deviation Discharge - Discharge Clinical Impression: Breath shortness Condition: Stable Disposition: HOME, SELF-CARE Additional Instructions: There is no obvious explanation for your sensation of being unable to catch her breath when you wake up. Follow-up with your primary care provider if this continues to be a problem. RETURN TO THE EMERGENCY ROOM IF ANY NEW OR WORSENING SYMPTOMS. Referrals: [facility] [Primary Care Provider] - Follow up as needed I personally performed the services described in the documentation, reviewed and edited the documentation which was dictated to the scribe in my presence, and it accurately records my words and actions.
[2020-02-12 10:11] VITALS: BP 142/60
== END 2020-02-12 10:17 | disposition home or self-care (01) ==
LOC: ER 03:57
DX: R06.02 Shortness of breath (principal); R07.89 Other chest pain; Z99.81 Dependence on supplemental oxygen; Z88.8 Allergy status to other drugs, medicaments and biological substances
CPT/HCPCS: 36415; 80053; 82550; 82553; 84484; 85025; 99282

== ENCOUNTER 2020-03-30 23:11 | Emergency (ER) | payer OTHER, MEDICARE ==
--- NOTE | 2020-03-31 00:26 | ER Document Report ---
ED Medical Screen (RME) - General Chief Complaint: Urinary Frequency Stated Complaint: UNABLE TO URINATE Time Seen by Provider: 03/31/20 00:21 Primary Care Provider: CHRISTA,JEAN [Primary Care Provider] - Follow up as needed Mode of Arrival: Ambulatory Information source: Patient TRAVEL OUTSIDE OF THE [place] IN LAST 30 DAYS: No - HPI Patient complains to provider of: Cannot urinate Notes: 03/31/20 00:25 Patient with complaints of suprapubic pain and feeling that he is unable to urinate. States last time he urinated was yesterday. Denies fever. Denies nausea, vomiting, diarrhea. Has had this problem in the past. Exam: Nontoxic, no distress. No respiratory distress. Suprapubic tenderness to palpation with a distended bladder palpable. An initial examination was made on the patient as part of the triage process, and it was determined a more comprehensive evaluation was necessary. Initial ord ers were placed and patient was transferred to another provider in the ED who assumed care and finished evaluation and plan. - Related Data Allergies/Adverse Reactions: codeine Adverse Reaction (Intermediate, Verified 03/31/20 00:22) HAY Allergy (Uncoded 02/12/20 04:12) HAY FEVER Allergy (Uncoded 02/12/20 04:12) Past Medical History - Past Medical History Cardiac Medical History: Reports: Hx Congestive Heart Failure, Hx Coronary Artery Disease, Hx Heart Attack - X2 WITH STENTS 2004, 2009, Hx Hypercholesterolemia, Hx Hypertension Denies: Hx Atrial Fibrillation, Hx DVT, Hx Pulmonary Embolism Pulmonary Medical History: Reports: Hx COPD, Hx Pneumonia, Hx Respiratory Failure Denies: Hx Asthma, Hx Bronchitis Neurological Medical History: Denies: Hx Cerebrovascular Accident, Hx Seizures Endocrine Medical History: Reports: Hx Diabetes Mellitus Type 2. Denies: Hx Diabetes Mellitus Type 1, Hx Hyperthyroidism, Hx Hypothyroidism Renal/ Medical History: Reports: Hx Benign Prostatic Hyperplasia, Hx End Stage Renal Disease, Hx Hemodialysis - MWF, Hx Peritoneal Dialysis GI Medical History: Reports: Hx Diverticulitis. Denies: Hx Cirrhosis, Hx Hepati tis Musculoskeltal Medical History: Denies Hx Arthritis, Denies Hx Gout Skin Medical History: Denies Hx Eczema, Denies Hx Psoriasis Psychiatric Medical History: Reports: Hx Depression Infectious Medical History: Reports: Hx C-Diff. Denies: Hx Hepatitis Past Surgical History: Reports: Hx Abdominal Surgery - meckels diverticulum, Hx Cardiac Catheterization, Hx Coronary Stent - X2 '05, '10, Other - Small bowel resection; adhesion lysis; peritoneal dialysis access - Immunizations Hx Diphtheria, Pertussis, Tetanus Vaccination: Yes Physical Exam - Vital signs Vitals: Temp Pulse Resp BP Pulse Ox 98.1 F 77 22 H 124/72 94 03/30/20 23:23 03/30/20 23:23 03/30/20 23:23 03/30/20 23:23 03/30/20 23:23 Course - Vital Signs Vital signs: Temp Pulse Resp BP Pulse Ox 98.1 F 77 22 H 124/72 94 03/30/20 23:23 03/30/20 23:23 03/30/20 23:23 03/30/20 23:23 03/30/20 23:23 Doctor's Discharge - Discharge Referrals: [facility] [Primary Care Provider] - Follow up as needed
[2020-03-31 02:23] LABS: APPEARANCE,URINE TURBID; BILIRUBIN,URINE NEGATIVE (NEGATIVE); COLOR,URINE YELLOW; GLUCOSE, URINE 50 mg/dL (NEGATIVE); KETONES,URINE NEGATIVE (NEGATIVE); LEUKOCYTE ESTERASE,URINE MODERATE (NEGATIVE); NITRITE,URINE NEGATIVE (NEGATIVE); PROTEIN,URINE 100 mg/dL (NEGATIVE); URINE SPECIFIC GRAVITY 1.018; UROBILINOGEN,URINE NEGATIVE mg/dL (<2.0)
--- NOTE | 2020-03-31 02:27 | ER Document Report ---
ED General - General Chief Complaint: Urinary Retention Stated Complaint: UNABLE TO URINATE Time Seen by Provider: 03/31/20 00:21 Primary Care Provider: [facility] [Primary [facility] Provider] - Follow up as needed Mode of Arrival: Ambulatory TRAVEL OUTSIDE OF THE [place] IN LAST 30 DAYS: No - HPI Notes: 69-year-old male presents with urinary retention. Patient states that he has not had any urination since Sunday night, which is greater than 24 hours ago. He is a dialysis patient, Sunday, he is due to go to dialysis tomorrow. He states that he typically makes 200 to 300 cc of urine per day. He is having some suprapubic discomfort. He states he has had multiple instances of urinary retention in the past requiring a Moraes, he states that he does have a doctor to follow-up with for this matter. - Related Data Allergies/Adverse Reactions: codeine Adverse Reaction (Intermediate, Verified 03/31/20 00:22) HAY Allergy (Uncoded 02/12/20 04:12) HAY FEVER Allergy (Uncoded 02/12/20 04:12) Past Medical History - General Information source: Patient - Social History Smoking Status: Former Smoker Frequency of alcohol use: None Drug Abuse: None Family History: Reviewed & Not Pertinent, CAD, DM, Hypertension - Past Medical History Cardiac Medical History: Reports: Hx Congestive Heart Failure, Hx Coronary Artery Disease, Hx Heart Attack - X2 WITH STENTS 2004, 2009, Hx Hypercholesterolemia, Hx Hypertension Denies: Hx Atrial Fibrillation, Hx DVT, Hx Pulmonary Embolism Pulmonary Medical History: Reports: Hx COPD, Hx Pneumonia, Hx Respiratory Failure Denies: Hx Asthma, Hx Bronchitis Neurological Medical History: Denies: Hx Cerebrovascular Accident, Hx Seizures Endocrine Medical History: Reports: Hx Diabetes Mellitus Type 2. Denies: Hx Diabetes Mellitus Type 1, Hx Hyperthyroidism, Hx Hypothyroidism Renal/ Medical History: Reports: Hx Benign Prostatic Hyperplasia, Hx End Stage Renal Disease, Hx Hemodialysis - MWF, Hx Peritoneal Dialysis GI Medical History: Reports: Hx Diverticulitis. Denies: Hx Cirrhosis, Hx Hepatitis Musculoskeletal Medical History: Denies Hx Arthritis, Denies Hx Gout Skin Medical History: Denies Hx Eczema, Denies Hx Psoriasis Psychiatric Medical History: Reports: Hx Depression Infectious Medical History: Reports: Hx C-Diff. Denies: Hx Hepatitis Past Surgical History: Reports: Hx Abdominal Surgery - meckels diverticulum, Hx Cardiac Catheterization, Hx Coronary Stent - X2 '05, '10, Other - Small bowel resection; adhesion lysis; peritoneal dialysis access - Immunizations Hx Diphtheria, Pertussis, Tetanus Vaccination: Yes Hx Pneumococcal Vaccination: 03/26/18 Review of Systems - Review of Systems Constitutional: denies: Fever EENT: No symptoms reported Cardiovascular: denies: Chest pain Respiratory: denies: Short of breath Gastrointestinal: denies: Diarrhea, Vomiting Genitourinary: denies: Retention Male Genitourinary: No symptoms reported Musculoskeletal: No symptoms reported Skin: No symptoms reported Hematologic/Lymphatic: No symptoms reported Neurological/Psychological: No symptoms reported Physical Exam - Vital signs Vitals: Temp Pulse Resp BP Pulse Ox 98.1 F 77 22 H 124/72 94 03/30/20 23:23 03/30/20 23:23 03/30/20 23:23 03/30/20 23:23 03/30/20 23:23 - General General appearance: Appears well, Alert In distress: None - HEENT Head: Normocephalic, Atraumatic Pupils: PERRL - Respiratory Breath sounds: Normal - Cardiovascular Rhythm: Regular Heart sounds: Normal auscultation - Abdominal Distension: No distension Tenderness: Nontender - Genitourinary Notes: Moraes with cloudy yellow urine - Extremities General upper extremity: Normal ROM General lower extremity: Normal ROM - Neurological Neuro grossly intact: Yes Cognition: Normal Orientation: AAOx4 - Psychological Associated symptoms: Normal affect - Skin Skin Temperature: Warm Course - Re-evaluation Re-evalutation: 69-year-old male with urinary retention, history of this, reportedly due to en larged prostate. No urine output for greater than 24 hours. A Moraes was placed prior to my evaluation, there is a cloudy yellow urine that is being drained. Patient is currently hemodynamically stable, abdomen is soft and without focal area of tenderness. I do not appreciate a distended bladder, however this is likely due to the fact that he now has a Moraes. Pending urinary analysis to see if there is evidence of UTI. 03/31/20 02:26 Urine shows evidence of pyuria. I reviewed his previous cultures, alternates between yeast and Enterococcus with sensitivity to Macrobid. Will prescribe him a course of Macrobid and he will be called if antibiotics need to be changed based on culture. Stable at time of discharge. - Vital Signs Vital signs: Temp Pulse Resp BP Pulse Ox 98.1 F 77 22 H 124/72 94 03/30/20 23:23 03/30/20 23:23 03/30/20 23:23 03/30/20 23:23 03/30/20 23:23 - Laboratory Results Laboratory Results Interpreted: 03/31/20 02:00 Urine Protein 100 H Urine Glucose (UA) 50 H Urine Blood MODERATE H Ur Leukocyte Esterase MODERATE H Critical Laboratory Results Reviewed: No Critical Results - Radiology Results Critical Radiology Results Reviewed: No Critical Results Discharge - Discharge Clinical Impression: Urinary retention Disposition: HOME, SELF-CARE Additional Instructions: Please go to dialysis today as planned. Begin course of Macrobid. Please have close follow-up with your doctor to discuss Moraes removal. Return to the emergency department for any concerning worsening symptoms. Prescriptions: Nitrofurantoin Monohyd/M-Cryst [Macrobid 100 mg Capsule] 100 mg PO BID 7 Days #14 cap Referrals: [facility] [Primary Care Provider] - Follow up as needed
[2020-03-31 04:10] VITALS: BP 132/40
== END 2020-03-31 04:34 | disposition home or self-care (01) ==
LOC: ER 23:11
DX: R33.9 Retention of urine, unspecified (principal); E11.22 Type 2 diabetes mellitus with diabetic chronic kidney disease; I13.2 Hypertensive heart and chronic kidney disease with heart failure and with stage 5 chronic kidney disease, or end stage renal disease; I50.9 Heart failure, unspecified; N18.6 End stage renal disease; J44.9 Chronic obstructive pulmonary disease, unspecified; Z88.6 Allergy status to analgesic agent; Z99.2 Dependence on renal dialysis
CPT/HCPCS: 51702; 81001; 87086; 99283

== ENCOUNTER 2020-04-07 12:11 | Inpatient (IN) | payer OTHER, MEDICARE ==
--- NOTE | 2020-04-07 12:47 | ER Document Report ---
ED GI/ - General Chief Complaint: Urinary Retention Stated Complaint: URINATION PROBLEM Time Seen by Provider: 04/07/20 12:39 Primary Care Provider: SYED WHITING MD [NO LOCAL MD] - Follow up as needed Mode of Arrival: Wheelchair Information source: Patient Notes: 69-year-old male with history of urinary retention presents the emergency department with acute urinary retention. Patient was seen in this emergency department and had a Gustafson catheter placed on 03/30. He states he removed the catheter yesterday because he felt he could urinate without difficulty. He states that he has not urinated since he took the Gustafson out. He denies any fever, chills, abdominal pain, back pain. He does report that the balloon was deflated when he took the catheter out. TRAVEL OUTSIDE OF THE [place] IN LAST 30 DAYS: No - Related Data Allergies/Adverse Reactions: codeine Adverse Reaction (Intermediate, Verified 03/31/20 00:22) HAY Allergy (Uncoded 02/12/20 04:12) HAY FEVER Allergy (Uncoded 02/12/20 04:12) Home Medications: dialysis MWF. oxygen therapy 2L Past Medical History - General Information source: Patient - Social History Smoking Status: Unknown if Ever Smoked Family History: Reviewed & Not Pertinent, CAD, DM, Hypertension Patient has homicidal ideation: No - Past Medical History Cardiac Medical History: Reports: Hx Congestive Heart Failure, Hx Coronary Artery Disease, Hx Heart Attack - X2 WITH STENTS 2004, 2009, Hx Hypercholesterolemia, Hx Hypertension Denies: Hx Atrial Fibrillation, Hx DVT, Hx Pulmonary Embolism Pulmonary Medical History: Reports: Hx COPD, Hx Pneumonia, Hx Respiratory Failure Denies: Hx Asthma, Hx Bronchitis Neurological Medical History: Denies: Hx Cerebrovascular Accident, Hx Seizures Endocrine Medical History: Reports: Hx Diabetes Mellitus Type 2. Denies: Hx Diabetes Mellitus Type 1, Hx Hyperthyroidism, Hx Hypothyroidism Renal/ Medical History: Reports: Hx Benign Prostatic Hyperplasia, Hx End Stage Renal Disease, Hx Hemodialysis - MWF, Hx Peritoneal Dialysis GI Medical History: Reports: Hx Diverticulitis. Denies: Hx Cirrhosis, Hx Hepatitis Musculoskeletal Medical History: Denies Hx Arthritis, Denies Hx Gout Skin Medical History: Denies Hx Eczema, Denies Hx Psoriasis Psychiatric Medical History: Reports: Hx Depression Infectious Medical History: Reports: Hx C-Diff. Denies: Hx Hepatitis Past Surgical History: Reports: Hx Abdominal Surgery - meckels diverticulum, Hx Cardiac Catheterization, Hx Coronary Stent - X2 '05, '10, Other - Small bowel resection; adhesion lysis; peritoneal dialysis access - Immunizations Hx Diphtheria, Pertussis, Tetanus Vaccination: Yes Hx Pneumococcal Vaccination: 03/26/18 Review of Systems - Review of Systems Genitourinary: Retention -: Yes All other systems reviewed and negative Physical Exam - Vital signs Vitals: Temp Pulse Resp BP Pulse Ox 98.3 F 80 20 149/53 H 94 04/07/20 12:04/07/20 12:04/07/20 12:04/07/20 12:04/07/20 12:19 - Notes Notes: PHYSICAL EXAMINATION: GENERAL: Well-appearing, well-nourished and in no acute distress. HEAD: Atraumatic, normocephalic. EYES: Pupils equal round and reactive to light, extraocular movements intact, sclera anicteric, conjunctiva are normal. ENT: Nares patent, oropharynx clear without exudates. Moist mucous membranes. NECK: Normal range of motion, supple without lymphadenopathy LUNGS: Breath sounds clear to auscultation bilaterally and equal. No wheezes rales or rhonchi. HEART: Regular rate and rhythm without murmurs ABDOMEN: Soft, nontender, nondistended abdomen. No guarding, no rebound. No masses appreciated. Musculoskeletal: Normal range of motion, no pitting or edema. No cyanosis. NEUROLOGICAL: Cranial nerves grossly intact. Normal speech. Normal sensory, motor exams PSYCH: Normal mood, normal affect. SKIN: Warm, Dry, normal turgor, no rashes or lesions noted. Course - Vital Signs Vital signs: Temp Pulse Resp BP Pulse Ox 98.3 F 80 20 149/53 H 94 04/07/20 12:04/07/20 12:04/07/20 12:04/07/20 12:04/07/20 12:19 - Laboratory Results Critical Laboratory Results Reviewed: No Critical Results - Radiology Results Critical Radiology Results Reviewed: No Critical Results Discharge - Discharge Clinical Impression: Urinary retention, Acute urinary retention Condition: Stable Disposition: HOME, SELF-CARE Additional Instructions: Urinary Retention Urinary retention is inability to empty the bladder. It can result from a urine infection, or from mechanical problems such as an enlarged prostate gland or swelling of the urethra. Drugs or alcohol can also lead to urine retention. The condition is usually treated by passage of a catheter. If the physician thinks the problem will continue, the catheter may be left in place for a few days. Sometimes drugs are used to stimulate the bladder if the physician feels that inadequate bladder contraction is the cause. If the condition leading to the retention is a chronic one, such as an enlarged prostate, you will be referred to a specialist for further care. Call the physician or return if you develop fever, flank or back pain, pain on urination, or recurrent difficulty passing the urine. PLEASE KEEP THE GUSTAFSON CATHETER IN PLACE UNTIL YOU ARE SEEN BY A UROLOGIST. Referrals: SYED WHITING MD [NO LOCAL MD] - Follow up as needed
--- NOTE | 2020-04-07 13:39 | ER Document Report ---
ED Medical Screen (RME) - General Chief Complaint: Urinary Retention Stated Complaint: URINATION PROBLEM Time Seen by Provider: 04/07/20 12:39 Primary Care Provider: SYED WHITING MD [NO LOCAL MD] - Follow up as needed Mode of Arrival: Wheelchair Information source: Patient Notes: 69-year-old male with history of urinary retention presents the emergency department with acute urinary retention. Patient was seen in this emergency department and had a Gustafson catheter placed on 03/30. He states he removed the catheter yesterday because he felt he could urinate without difficulty. He states that he has not urinated since he took the Gustafson out. He denies any fever, chills, abdominal pain, back pain. He does report that the balloon was deflated when he took the catheter out. Upon insertion of the Gustafson patient had approximately 50 cc of purulent drainage. I did attempt to manually irrigate the Gustafson with 30 cc of sterile water, no urine return obtained, patient reports increased pain. Upon further evaluation patient has a drainage port to the right lower quadrant that is erythematous and indurated. I spoke with my attending physician, Dr. Randolph and we are concerned that the patient may have a fistula. I have greeted and performed a rapid initial assessment of this patient. A comprehensive ED assessment and evaluation of the patient, analysis of test results and completion of the medical decision making process will be conducted by additional ED providers. I have specifically instructed the patient or family members with the patient to immediately return to any nursing staff should anything change in the patient's condition or with their chief complaint. TRAVEL OUTSIDE OF THE [place] IN LAST 30 DAYS: No - Related Data Allergies/Adverse Reactions: codeine Adverse Reaction (Intermediate, Verified 03/31/20 00:22) HAY Allergy (Uncoded 02/12/20 04:12) HAY FEVER Allergy (Uncoded 02/12/20 04:12) Home Medications: dialysis MWF. oxygen therapy 2L Past Medical History - Past Medical History Cardiac Medical History: Reports: Hx Congestive Heart Failure, Hx Coronary Artery Disease, Hx Heart Attack - X2 WITH STENTS 2004, 2009, Hx Hypercholesterolemia, Hx Hypertension Denies: Hx Atrial Fibrillation, Hx DVT, Hx Pulmonary Embolism Pulmonary Medical History: Reports: Hx COPD, Hx Pneumonia, Hx Respiratory Failure Denies: Hx Asthma, Hx Bronchitis Neurological Medical History: Denies: Hx Cerebrovascular Accident, Hx Seizures Endocrine Medical History: Reports: Hx Diabetes Mellitus Type 2. Denies: Hx Diabetes Mellitus Type 1, Hx Hyperthyroidism, Hx Hypothyroidism Renal/ Medical History: Reports: Hx Benign Prostatic Hyperplasia, Hx End Stage Renal Disease, Hx Hemodialysis - MWF, Hx Peritoneal Dialysis GI Medical History: Reports: Hx Diverticulitis. Denies: Hx Cirrhosis, Hx Hepatitis Musculoskeltal Medical History: Denies Hx Arthritis, Denies Hx Gout Skin Medical History: Denies Hx Eczema, Denies Hx Psoriasis Psychiatric Medical History: Reports: Hx Depression Infectious Medical History: Reports: Hx C-Diff. Denies: Hx Hepatitis Past Surgical History: Reports: Hx Abdominal Surgery - meckels diverticulum, Hx Cardiac Catheterization, Hx Coronary Stent - X2 '05, '10, Other - Small bowel resection; adhesion lysis; peritoneal dialysis access - Immunizations Hx Diphtheria, Pertussis, Tetanus Vaccination: Yes Physical Exam - Vital signs Vitals: Temp Pulse Resp BP Pulse Ox 98.3 F 80 20 149/53 H 94 04/07/20 12:19 04/07/20 12:04/07/20 12:04/07/20 12:19 04/07/20 12:19 Course - Vital Signs Vital signs: Temp Pulse Resp BP Pulse Ox 98.3 F 80 20 149/53 H 94 04/07/20 12:19 04/07/20 12:19 04/07/20 12:19 04/07/20 12:19 04/07/20 12:19 Doctor's Discharge - Discharge Clinical Impression: Urinary retention, Acute urinary retention Condition: Stable Disposition: HOME, SELF-CARE Additional Instructions: Urinary Retention Urinary retention is inability to empty the bladder. It can result from a urine infection, or from mechanical problems such as an enlarged prostate gland or swelling of the urethra. Drugs or alcohol can also lead to urine retention. The condition is usually treated by passage of a catheter. If the physician thinks the problem will continue, the catheter may be left in place for a few days. Sometimes drugs are used to stimulate the bladder if the physician feels that inadequate bladder contraction is the cause. If the condition leading to the retention is a chronic one, such as an enlarged prostate, you will be referred to a specialist for further care. Call the physician or return if you develop fever, flank or back pain, pain on urination, or recurrent difficulty passing the urine. PLEASE KEEP THE GUSTAFSON CATHETER IN PLACE UNTIL YOU ARE SEEN BY A UROLOGIST. Referrals: SYED WHITING MD [NO LOCAL MD] - Follow up as needed
[2020-04-07 14:09] LABS: ABSOLUTE BASOPHILS # (AUTO) 0.1 10^3/uL (0.0-0.2); ABSOLUTE EOSINOPHILS # (AUTO) 0.1 10^3/uL (0.0-0.6); ABSOLUTE LYMPHOCYTES (AUTO) 0.6 10^3/uL (0.5-4.7); ABSOLUTE MONOCYTES (AUTO) 0.9 10^3/uL (0.1-1.4); ABSOLUTE NEUT (AUTO) 7.7 10^3/uL (1.7-8.2); BASOPHILS % (AUTO) 0.9 % (0-2); EOSINOPHILS % (AUTO) 1.2 % (0-6); HEMATOCRIT 33.5 % (37.9-51.0); LYMPHOCYTES % (AUTO) 6.3 % (13-45); MEAN CORPUSCULAR HEMOGLOBIN 31.7 pg (27.0-33.4); MEAN CORPUSCULAR HGB CONC 32.9 g/dL (32.0-36.0); MEAN CORPUSCULAR VOLUME 96 fl (80-97); MONOCYTES % (AUTO) 9.7 % (3-13); PLATELET COUNT 316 10^3/uL (150-450); RED BLOOD COUNT 3.48 10^6/uL (4.35-5.55); RED CELL DISTRIBUTION WIDTH 13.7 % (11.5-14.0); SEGMENTED NEUTROPHILS % (AUTO) 81.9 % (42-78); TOTAL CELLS COUNTED % (AUTO) 100 %; WHITE BLOOD COUNT 9.4 10^3/uL (4.0-10.5)
[2020-04-07 14:24] LABS: APPEARANCE,URINE TURBID; BILIRUBIN,URINE NEGATIVE (NEGATIVE); COLOR,URINE YELLOW; GLUCOSE, URINE NEGATIVE (NEGATIVE); KETONES,URINE NEGATIVE (NEGATIVE); LEUKOCYTE ESTERASE,URINE MODERATE (NEGATIVE); NITRITE,URINE NEGATIVE (NEGATIVE); PROTEIN,URINE 100 mg/dL (NEGATIVE); URINE SPECIFIC GRAVITY 1.018; UROBILINOGEN,URINE NEGATIVE mg/dL (<2.0)
[2020-04-07 14:35] LABS: ALBUMIN 3.5 g/dL (3.5-5.0); ALKALINE PHOSPHATASE 114 U/L (38-126); ANION GAP 14 (5-19); ASPARTATE AMINO TRANSFERASE 16 U/L (17-59); BILIRUBIN,DIRECT 0.8 mg/dL (0.0-0.4); BILIRUBIN,TOTAL 0.8 mg/dL (0.2-1.3); BLOOD UREA NITROGEN 57 mg/dL (7-20); CALCIUM 9.2 mg/dL (8.4-10.2); CARBON DIOXIDE 30 mmol/L (22-30); CHLORIDE 98 mmol/L (98-107); GLUCOSE 241 mg/dL (75-110); POTASSIUM 4.4 mmol/L (3.6-5.0); TOTAL PROTEIN 6.7 g/dL (6.3-8.2)
--- NOTE | 2020-04-07 15:25 | ER Document Report ---
ED GI/ - General Chief Complaint: Urinary Retention Stated Complaint: URINATION PROBLEM Time Seen by Provider: 04/07/20 12:39 Primary Care Provider: SYDE WHITING MD [NO LOCAL MD] - Follow up as needed Mode of Arrival: Wheelchair Notes: Patient is a 69-year-old male presents to the emergency department with a chief complaint of acute urinary retention. Patient states that he took out his Gustafson catheter yesterday. He had one placed on March 31 for urinary retention. Also reports abdominal pain that his peritoneal drain site. states that the patient has not been able to drain some of his fluid and has stated that there was some purulent drainage from the area. TRAVEL OUTSIDE OF THE [place] IN LAST 30 DAYS: No - Related Data Allergies/Adverse Reactions: codeine Adverse Reaction (Intermediate, Verified 03/31/20 00:22) HAY Allergy (Uncoded 02/12/20 04:12) HAY FEVER Allergy (Uncoded 02/12/20 04:12) Home Medications: dialysis MWF. oxygen therapy 2L Past Medical History - General Information source: Patient - Social History Smoking Status: Unknown if Ever Smoked Family History: Reviewed & Not Pertinent, CAD, DM, Hypertension Patient has homicidal ideation: No - Past Medical History Cardiac Medical History: Reports: Hx Congestive Heart Failure, Hx Coronary Artery Disease, Hx Heart Attack - X2 WITH STENTS 2004, 2009, Hx Hypercholesterolemia, Hx Hypertension Denies: Hx Atrial Fibrillation, Hx DVT, Hx Pulmonary Embolism Pulmonary Medical History: Reports: Hx COPD, Hx Pneumonia, Hx Respiratory Failure Denies: Hx Asthma, Hx Bronchitis Neurological Medical History: Denies: Hx Cerebrovascular Accident, Hx Seizures Endocrine Medical History: Reports: Hx Diabetes Mellitus Type 2. Denies: Hx Diabetes Mellitus Type 1, Hx Hyperthyroidism, Hx Hypothyroidism Renal/ Medical History: Reports: Hx Benign Prostatic Hyperplasia, Hx End Stage Renal Disease, Hx Hemodialysis - MWF, Hx Peritoneal Dialysis GI Medical History: Reports: Hx Diverticulitis. Denies: Hx Cirrhosis, Hx Hepatitis Musculoskeletal Medical History: Denies Hx Arthritis, Denies Hx Gout Skin Medical History: Denies Hx Eczema, Denies Hx Psoriasis Psychiatric Medical History: Reports: Hx Depression Infectious Medical History: Reports: Hx C-Diff. Denies: Hx Hepatitis Past Surgical History: Reports: Hx Abdominal Surgery - meckels diverticulum, Hx Cardiac Catheterization, Hx Coronary Stent - X2 , '10, Other - Small bowel resection; adhesion lysis; peritoneal dialysis access - Immunizations Hx Diphtheria, Pertussis, Tetanus Vaccination: Yes Hx Pneumococcal Vaccination: 03/26/18 Review of Systems - Review of Systems Notes: REVIEW OF SYSTEMS: CONSTITUTIONAL : Denies recent illness. Denies recent unintentional weight loss. Denies fever, chills, or sweats. EENT: Denies eye, ear, throat, or mouth pain, discharge, or symptoms. Denies nasal or sinus congestion. CARDIOVASCULAR: Denies chest pain. RESPIRATORY: Denies shortness of breath, cough, congestion, difficulty breathing, or wheezing. GASTROINTESTINAL: See HPI. GENITOURINARY: See HPI. MUSCULOSKELETAL: Denies neck and back pain. Denies joint pain or swelling. SKIN: Denies rash, itchiness, or lesions HEMATOLOGIC : Denies easy bruising or bleeding. LYMPHATIC: Denies swollen, painful, enlarged glands. NEUROLOGICAL: Denies no numbness or tingling denies weakness. Denies headache. Denies altered mental status. Denies alteration in speech. PSYCHIATRIC: Denies stress, anxiety, alteration in sleep patterns, or depression. All other systems reviewed and negative. Physical Exam - Vital signs Vitals: Temp Pulse Resp BP Pulse Ox 98.3 F 80 20 149/53 H 94 04/07/20 12:19 04/07/20 12:19 04/07/20 12:19 04/07/20 12:19 04/07/20 12:19 - Notes Notes: PHYSICAL EXAMINATION: GENERAL: Appears well, healthy, well-nourished, no acute distress. HEAD: Normocephalic, atraumatic. EYES: PERRL, conjunctiva normal, all extraocular movements intact, sclera nonicteric ENT: Moist mucous membranes. NECK: Supple, no noticeable swelling, redness, rash. Normal range of motion. LUNGS: Equal breath sounds bilaterally and clear to auscultation. No wheezes rales or rhonchi. CARDIOVASCULAR: S1-S2, regular rate, regular rhythm. Radial pulses 2+, normal. ABDOMEN: Normoactive bowel sounds. Very tender abdomen at abdominal drain site. EXTREMITIES: Normal strength and range of motion, no pitting or edema. No cyanosis. NEUROLOGICAL: Moves all extremities upon command. Strength 5/5 in all extremities. PSYCH: Normal mood, normal affect. SKIN: Warm, dry. No rash, lesions, ulcerations noted. Normal skin turgor. Course - Re-evaluation Re-evalutation: 04/07/20 15:51 I ended up drawing another set of fluid, as the lab told me that the fluid that was sent down was too thick and they cannot perform a cell count. Withdrew more fluid from the area and it was still thick. Will attempt to resend it. 04/07/20 16:02 Again, unfortunately the fluid that was sent to check for peritonitis was too thick. Regardless, we will start the patient on antibiotics to treat bacterial peritonitis. 04/07/20 16:17 I spoke with Nathan, the cheese pancake roller. He states that we can accommodate the patient here. 04/07/20 16:[address] Galeano, attending. He advises that the patient be seen by Dr. Hong. 04/07/20 16:[address] Hong. Will await call back. 04/07/20 17:[address] Hong. He would like me to call the hospitalist. I then called Dr. Ye. The he admitted to the medical floor. 04/07/20 17:34 Dr. Hong at bedside and the abdominal catheter was removed by him. - Vital Signs Vital signs: Temp Pulse Resp BP Pulse Ox 97.8 F 80 20 149/53 H 94 04/07/20 16:28 04/07/20 12:19 04/07/20 12:19 04/07/20 12:19 04/07/20 12:19 - Laboratory Results Result Diagrams: 04/07/20 13:50 04/07/20 13:50 Laboratory Results Interpreted: 04/07/20 04/07/20 04/07/20 13:15 13:50 13:50 RBC 3.48 L Hgb 11.0 L Hct 33.5 L Lymph % (Auto) 6.3 L Seg Neutrophils % 81.9 H BUN 57 H Creatinine 7.77 H Est GFR ( Amer) 8 L Est GFR (MDRD) Non-Af 7 L Glucose 241 H Direct Bilirubin 0.8 H AST 16 L Urine Protein 100 H Urine Blood SMALL H Ur Leukocyte Esterase MODERATE H Critical Laboratory Results Reviewed: No Critical Results - Radiology Results Critical Radiology Results Reviewed: No Critical Results Discharge - Discharge Clinical Impression: Urinary retention, Acute urinary retention, Bacterial peritonitis Condition: Stable Disposition: ADMITTED INPATIENT Admitting Provider: Ephraim (Hospitalist) Unit Admitted: Medical Floor Additional Instructions: Urinary Retention Urinary retention is inability to empty the bladder. It can result from a urine infection, or from mechanical problems such as an enlarged prostate gland or swelling of the urethra. Drugs or alcohol can also lead to urine retention. The condition is usually treated by passage of a catheter. If the physician thinks the problem will continue, the catheter may be left in place for a few days. Sometimes drugs are used to stimulate the bladder if the physician feels that inadequate bladder contraction is the cause. If the condition leading to the retention is a chronic one, such as an enlarged prostate, you will be referred to a specialist for further care. Call the physician or return if you develop fever, flank or back pain, pain on urination, or recurrent difficulty passing the urine. PLEASE KEEP THE GUSTAFSON CATHETER IN PLACE UNTIL YOU ARE SEEN BY A UROLOGIST. Referrals: SYED WHITING MD [NO LOCAL MD] - Follow up as needed
[2020-04-07] MEDS ORDERED: MORPHINE SULFATE 10 MG/ML INJ IV ONE ×2 (15:32→18:25)
[2020-04-07] MEDS ORDERED: VANCOMYCIN HCL INJ 1000 MG VIAL IV ONE (15:35)
[2020-04-07] MEDS ORDERED: CEFEPIME 2 GM/D5W RTU 2 GM/50 ML RTUPB IV ONE (15:36)
--- NOTE | 2020-04-07 16:49 | RADIOLOGY REPORT (SQ) ---
EXAM DESCRIPTION: CT ABD/PELVIS NO ORAL OR IV IMAGES COMPLETED DATE/TIME: 04/07/2020 1:24 pm REASON FOR STUDY: EVAL FOR FISTULA, PURULENT DRAINAGE FROM BLADDER COMPARISON: 12/06/2019 TECHNIQUE: CT scan of the abdomen and pelvis performed without intravenous or oral contrast. Images reviewed with lung, soft tissue, and bone windows. Reconstructed coronal and sagittal MPR images revi ewed. All images stored on PACS. All CT scanners at this facility use dose modulation, iterative reconstruction, and/or weight based d osing when appropriate to reduce radiation dose to as low as reasonably achievable (ALARA). [facility]: Dose Right [facility]: CareDose [facility]: Dose Right [facility]: Teradose 4D [facility]: [employer] RADIATION DOSE: CT Rad equipment meets quality standard of care and radiation dose reduction techniq ues were employed. CTDIvol: 12.9 - 13.9 mGy. DLP: 883 mGy-cm.mGy. LIMITATIONS: Suboptimal evaluation of the vasculature and solid organs due to lack of IV contrast. FINDINGS: LOWER CHEST: Right lower lobe opacities could be due to atelectasis, though component of i nfection or aspiration is not excluded. Small right pleural effusion with chronic appearing pleural thickening NON-CONTRASTED LIVER, SPLEEN, ADRENALS: Evaluation limited by lack of IV contrast. No identified sig nificant masses. PANCREAS: Scattered parenchymal calcifications more pronounced in the tail probably due to chronic pa ncreatitis. No acute abnormality on noncontrast CT. GALLBLADDER: Gallbladder is distended. No calcified gallstones. RIGHT KIDNEY AND URETER: Intermediate density right renal lesions unchanged. Additional hypodense cy sts are also stable. No significant calcifications. No hydronephrosis or hydroureter. LEFT KIDNEY AND URETER: Intermediate density lesion posterior left kidney is also stable. Probable s mall cysts are unchanged. Punctate nonobstructing calculus lower pole left kidney. No hydronephro sis or hydroureter. AORTA AND RETROPERITONEUM: Extensive calcified plaque in the abdominal aorta and branches. No aortic aneurysm. No retroperitoneal lymphadenopathy. BOWEL AND PERITONEAL CAVITY: Moderate ascites. Colon diverticulosis. Diffuse mesenteric fat strandi ng likely due to edema. No bowel dilatation. Right lateral abdominal percutaneous catheter with the tip in the left pelvis. APPENDIX: Not visualized. PELVIS, BLADDER, AND ABDOMINAL WALL:Moraes catheter decompresses the urinary bladder. Diffuse bladder wall thickening and adjacent fat stranding is similar to prior examination. No distinct fistulous c onnection is identified with adjacent structures, though this is not optimally evaluated on noncontra st examination. There appears to be a preserved fat plane between the urinary bladder in adjacent [place]. Diffuse subcutaneous edema. BONES: Partially visualized left femoral fixation hardware. OTHER: No other significant finding. IMPRESSION: 1. Moraes catheter within the urinary bladder which demonstrates persistent diffuse wall thickening and adjacent fat stranding, similar to prior exam. No definite fistulous connection is i dentified with the adjacent structures on noncontrast CT. 2. Moderate volume ascites. Diffuse subcutaneous edema. 3. Small right pleural effusion and chronic right pleural thickening. Adjacent opacities may simply reflect atelectasis. Component of infection or aspiration is not excluded. 4. Colon diverticulosis. 5. Stable renal cysts and bilateral indeterminate renal lesions. COMMENT: Quality ID # [id number]: Final reports with documentation of one or more dose reduction techniques (e.g., Automated exposure control, adjustment of the mA and/or kV according to patient size, use of iterative reconstruction technique) TECHNICAL DOCUMENTATION: JOB ID: [id number] 2010 [employer]- All Rights Reserved Reading location - IP/workstation name: [email or web address]
--- NOTE | 2020-04-07 17:46 | PDOC CONSULTATION ---
Consultation Consult Date: 04/07/20 Attending physician:: EDDIE SHEIKH Provider Consulted: BLANCA JESUS Consult reason:: infected peritoneal drainage catheter History of Present Illness Admission Date/PCP: [facility] History of Present Illness: CELIO WAGNER is a 69 year old maleP presents to the emergency department with a chief complaint of acute urinary retention. Patient states that he took out his Moraes catheter yesterday. He had one placed on March 31 for urinary retention. Also reports abdominal pain that his peritoneal drain site. states that the patient has not been able to drain some of his fluid and has stated that there was some purulent drainage from the area. He had the peritoneal drainage catheter placed a few weeks ago in [place] for chronic ascites secondary to congestive heart failure. Has not been able to drain fluid much in the last few days except what appears to be some pus. Past Medical History Cardiac Medical History: Reports: Congestive Heart Failure, Coronary Artery Disease, Myocardial Infarction - X2 WITH STENTS 2004, 2009, Hyperlipidema, Hypertension Denies: Atrial Fibrillation, DVT, Pulmonary Embolism Pulmonary Medical History: Reports: Chronic Obstructive Pulmonary Disease (COPD), Pneumonia, Respiratory Failure Denies: Asthma, Bronchitis Neurological Medical History: Denies: Seizures Endocrine Medical History: Reports: Diabetes Mellitus Type 2 Denies: Diabetes Mellitus Type 1, Hyperthyroidism, Hypothyroidism Renal/ Medical History: Reports: End Stage Renal Disease GI Medical History: Reports: Diverticulitis Denies: Cirrhosis, Hepatitis Musculoskeltal Medical History: Denies: Arthritis, Gout Skin Medical History: Denies: Eczema, Psoriasis Psychiatric Medical History: Reports: Depression Hematology: Reports: Anemia Denies: Bleeding Tendencies Infectious Medical History: Reports: Clostridium Difficile Past Surgical History Past Surgical History: Reports: Cardiac Catheterization, Coronary Stent - X2 05, , Other - Small bowel resection; adhesion lysis; peritoneal dialysis access Social History Smoking Status: Unknown if Ever Smoked Frequency of Alcohol Use: None Hx Recreational Drug Use: No Drugs: None Hx Prescription Drug Abuse: No Family History Family History: Reviewed & Not Pertinent, CAD, DM, Hypertension Parental Family History Reviewed: No Children Family History Reviewed: NA Sibling(s) Family History Reviewed.: NA Medication/Allergy Home Medications: Aspirin [Aspirin 81 mg Chewable Tablet] 81 mg PO DAILY 10/09/18 Atorvastatin Calcium [Lipitor 80 mg Tablet] 80 mg PO QHS 10/09/18 Isosorbide Mononitrate [Imdur 30 mg Tablet.er] 30 mg PO DAILY 10/09/18 Terazosin HCl 2 mg PO DAILY 05/26/19 B Complex W-C No.20/Folic Acid [Renal Caps Softgel] 1 mg PO DAILY 11/12/19 Carvedilol [Coreg 12.5 mg Tablet] 12.5 mg PO Q12 11/12/19 Famotidine [Pepcid 20 mg Tablet] 20 mg PO QHS 11/12/19 Finasteride [Proscar 5 mg Tablet] 5 mg PO DAILY 11/12/19 Calcium Acetate [Phoslo 667 mg Capsule] 667 mg PO MEALS #90 capsule 11/15/19 Docusate Sodium [Colace 100 mg Capsule] 100 mg PO BID capsule 11/15/19 Duloxetine HCl [Cymbalta 30 mg Capsule.dr] 30 mg PO DAILY capsule.dr 11/15/19 Guaifenesin [Robitussin Syrup 200 mg/10 ml Ud Cup] 200 mg PO Q4HP PRN udc 11/15/19 Nitrofurantoin Monohyd/M-Cryst [Macrobid 100 mg Capsule] 100 mg PO BID 7 Days #14 cap 03/31/20 Allergies/Adverse Reactions: codeine Adverse Reaction (Intermediate, Verified 03/31/20 00:22) HAY Allergy (Uncoded 02/12/20 04:12) HAY FEVER Allergy (Uncoded 02/12/20 04:12) Review of Systems Constitutional: PRESENT: as per HPI, fatigue, weakness Eyes: ABSENT: as per HPI, visual disturbances, other Ears: ABSENT: as per HPI, hearing changes, other Nose, Mouth, and Throat: ABSENT: as per HPI, headache(s), mouth pain, sore thro at, vertigo, other Breasts: ABSENT: as per HPI, other Cardiovascular: ABSENT: as per HPI, chest pain, dyspnea on exertion, edema, orthropnea, palpitations, other Respiratory: ABSENT: as per HPI, cough, dyspnea, hemoptysis, sputum, other Gastrointestinal: PRESENT: other - Persistent abdominal pain especially on the right side near the exit site of the catheter. Integumentary: PRESENT: wounds - Painful around the exit site of the catheter on the abdominal wall Neurological: ABSENT: as per HPI, abnormal gait, abnormal movements, abnormal speech, confusion, convulsions, dizziness, focal weakness, frequent falls, lack of coordination, memory loss, numbness, paresthesias, restless legs, syncope, tingling, tremor(s), vertigo, weakness, other Psychiatric: ABSENT: as per HPI, anxiety, depression, hallucinations, homidical ideation, suicidal ideation, other Endocrine: ABSENT: as per HPI, cold intolerance, flushing, heat intolerance, menstrual abnormalities, polydipsia, polyphagia, polyuria, other Hematologic/Lymphatic: ABSENT: as per HPI, easy bleeding, easy bruising, lymphadenopathy, other Allergic/Immunologic: ABSENT: as per HPI, seasonal rhinorrhea, other Physical Exam Vital Signs: Temp Pulse Resp BP Pulse Ox 97.8 F 80 20 149/53 H 94 04/07/20 16:28 04/07/20 12:19 04/07/20 12:19 04/07/20 12:19 04/07/20 12:19 Intake & Output 04/06/20 04/07/20 04/08/20 06:59 06:59 06:59 Intake Total 50 Balance 50 Weight 78.2 kg General appearance: PRESENT: mild distress, obese Head exam: PRESENT: normocephalic Eye exam: PRESENT: EOMI Ear exam: PRESENT: normal external ear exam Mouth exam: PRESENT: dry mucosa Teeth exam: PRESENT: poor dentation Neck exam: PRESENT: full ROM Respiratory exam: PRESENT: clear to auscultation yair Cardiovascular exam: PRESENT: RRR Pulses: PRESENT: normal radial pulses, normal femoral pulses Vascular exam: PRESENT: normal capillary refill Breast: PRESENT: Normal GI/Abdominal exam: PRESENT: other - Patient has a peritoneal drainage catheter exiting the lateral abdominal wall on the right side there are 2 small incisions one at the catheter exit site and a second incision has a suture in it probably from placement. There is cellulitis around the exit site of the catheter with pus draining. Rectal exam: PRESENT: deferred Gentrourinary exam: PRESENT: indwelling catheter Extremities exam: PRESENT: full ROM Musculoskeletal exam: PRESENT: full ROM Neurological exam: PRESENT: alert, awake, oriented to person, oriented to place Psychiatric exam: PRESENT: appropriate affect Skin exam: PRESENT: dry Results Laboratory Results: 04/07/20 13:50 04/07/20 13:50 04/07/20 04/07/20 04/07/20 13:15 13:50 13:50 WBC 9.4 RBC 3.48 L Hgb 11.0 L Hct 33.5 L MCV 96 MCH 31.7 MCHC 32.9 RDW 13.7 Plt Count 316 Seg Neutrophils % 81.9 H Sodium 142.3 Potassium 4.4 Chloride 98 Carbon Dioxide 30 Anion Gap 14 BUN 57 H Creatinine 7.77 H Est GFR ( Amer) 8 L Glucose 241 H Calcium 9.2 Total Bilirubin 0.8 AST 16 L Alkaline Phosphatase 114 Total Protein 6.7 Albumin 3.5 Urine Color YELLOW Urine Appearance TURBID Urine pH 6.0 Ur Specific [place] 1.018 Urine Protein 100 H Urine Glucose (UA) NEGATIVE Urine Ketones NEGATIVE Urine Blood SMALL H Urine Nitrite NEGATIVE Ur Leukocyte Esterase MODERATE H Urine WBC (Auto) >182 Urine RBC (Auto) 20 Fluid Type Fluid Source Fluid Color Fluid Appearance Fluid Viscosity Fluid WBC Fluid RBC 04/07/20 15:04 WBC RBC Hgb Hct MCV MCH MCHC RDW Plt Count Seg Neutrophils % Sodium Potassium Chloride Carbon Dioxide Anion Gap BUN Creatinine Est GFR ( Amer) Glucose Calcium Total Bilirubin AST Alkaline Phosphatase Total Protein Albumin Urine Color Urine Appearance Urine pH Ur Specific [place] Urine Protein Urine Glucose (UA) Urine Ketones Urine Blood Urine Nitrite Ur Leukocyte Esterase Urine WBC (Auto) Urine RBC (Auto) Fluid Type Cancelled Fluid Source Cancelled Fluid Color Cancelled Fluid Appearance Cancelled Fluid Viscosity Cancelled Fluid WBC Cancelled Fluid RBC Cancelled Impressions: Abdomen/Pelvis CT 04/07/20 13:35 IMPRESSION: 1. Moraes catheter within the urinary bladder which demonstrates persistent diffuse wall thickening and adjacent fat stranding, similar to prior exam. No definite fistulous connection is identified with the adjacent structures on noncontrast CT. 2. Moderate volume ascites. Diffuse subcutaneous edema. 3. Small right pleural effusion and chronic right pleural thickening. Adjacent opacities may simply reflect atelectasis. Component of infection or aspiration is not excluded. 4. Colon diverticulosis. 5. Stable renal cysts and bilateral indeterminate renal lesions. Assessment & Plan - Plan Summary Plan Summary: Impression infected abdominal drainage catheter for ascites. Possible bacterial peritonitis. Plan recommend removal of the catheter which was done so at bedside. Patient will be admitted to the medical service for IV antibiotics. Surgery will follow
[2020-04-07] MEDS ORDERED: ACETAMINOPHEN 325 MG TABLET PO PRN (18:42)
[2020-04-07] MEDS ORDERED: VANCOMYCIN HCL 0 MG in DEXTROSE 5%-WATER 250 ML IV NR (19:00)
[2020-04-07] MEDS ORDERED: PHARMACY COMMUNICATION ORDER MC NR (19:00)
[2020-04-07] MEDS ORDERED: NITROGLYCERIN 0.4 MG/TAB 25 TAB/BOTTLE SL PRN (19:04)
[2020-04-07] MEDS ORDERED: GLUCAGON,HUMAN RECOMB 1 MG INJ IM PRN (19:19)
[2020-04-07] MEDS ORDERED: DEXTROSE 50%-WATER 25 GM/50 ML DISP.SYRIN IV PRN ×2 (19:19)
[2020-04-07] MEDS ORDERED: DEXTROSE 40% GEL 15 GM TUBE PO PRN ×2 (19:19)
--- NOTE | 2020-04-07 19:37 | PDOC H&P ---
History of Present Illness Admission Date/PCP: 04/07/20 17:41 [facility] Patient complains of: Abdominal pain History of Present Illness: CELIO WAGNER is a 69 year old male with a complex history including coronary artery disease with myocardial infarction and stents. He has diabetes mellitus type 2 and diastolic congestive heart failure. He has prostatic hypertrophy with bladder outlet obstruction. He suffers from depression and hyperlipidemia. He states that several days ago he began to have discomfort at the peritoneal catheter site. He then began to see a change in the ascitic fluid. It became more cloudy and one point was pus. He was getting less and less drainage at each weekend. He developed increasing pain and a bloated abdomen and presented to the hospital. He is clearly in significant discomfort. The abdominal tube was removed by Dr. Hong. It was noted that the fluid drainage was extremely purulent. In addition he required a Moraes catheter for obstructive uropathy. He had a Moraes catheter in place but removed it approximately 1 week ago. Despite a normal white blood cell count the urinalysis suggests infection. Glucose was 316 with his underlying diabetes mellitus. BUN was 57 with a creatinine of 7.77. The urine output obtained with Moraes catheter placement is not currently documented. The patient is quite ill. The patient was seen by Dr. Hong from the surgical department. The peritoneal catheter was removed. A Moraes catheter was successfully placed and will keep that in place. The patient was placed on IV antibiotics dosed for his renal function. We will continue to monitor the patient on telemetry. Accu-Cheks with sliding scale coverage. Past Medical History Cardiac Medical History: Reports: Congestive Heart Failure, Coronary Artery Disease, Myocardial Infarction - X2 WITH STENTS 2004, 2009, Hyperlipidema, Hypertension Denies: Atrial Fibrillation, DVT, Pulmonary Embolism Pulmonary Medical History: Reports: Chronic Obstructive Pulmonary Disease (COPD), Pneumonia, Respiratory Failure Denies: Asthma, Bronchitis Neurological Medical History: Denies: Seizures Endocrine Medical History: Reports: Diabetes Mellitus Type 2 Denies: Diabetes Mellitus Type 1, Hyperthyroidism, Hypothyroidism Renal/ Medical History: Reports: End Stage Renal Disease GI Medical History: Reports: Diverticulitis Denies: Cirrhosis, Hepatitis Musculoskeltal Medical History: Denies: Arthritis, Gout Skin Medical History: Denies: Eczema, Psoriasis Psychiatric Medical History: Reports: Depression Hematology: Reports: Anemia Denies: Bleeding Tendencies Infectious Medical History: Reports: Clostridium Difficile Past Surgical History Past Surgical History: Reports: Cardiac Catheterization, Coronary Stent - X2 '05, '10, Other - Small bowel resection; adhesion lysis; peritoneal dialysis access Social History Information Source: Patient Lives with: Family Smoking Status: Former Smoker Electronic Cigarette use?: No Frequency of Alcohol Use: None Hx Recreational Drug Use: No Drugs: None Hx Prescription Drug Abuse: No - Advance Directive Resuscitation Status: Full Code Surrogate healthcare decision maker:: The patient's would be the designated decision maker Family History Family History: CAD, DM, Hypertension Parental Family History Reviewed: Yes Children Family History Reviewed: Yes Sibling(s) Family History Reviewed.: Yes Medication/Allergy Home Medications: Aspirin [Aspirin 81 mg Chewable Tablet] 81 mg PO DAILY 10/09/18 Atorvastatin Calcium [Lipitor 80 mg Tablet] 80 mg PO QHS 10/09/18 Isosorbide Mononitrate [Imdur 30 mg Tablet.er] 30 mg PO DAILY 10/09/18 Terazosin HCl 2 mg PO DAILY 05/26/19 B Complex W-C No.20/Folic Acid [Renal Caps Softgel] 1 mg PO DAILY 11/12/19 Carvedilol [Coreg 12.5 mg Tablet] 12.5 mg PO Q12 11/12/19 Famotidine [Pepcid 20 mg Tablet] 20 mg PO QHS 11/12/19 Finasteride [Proscar 5 mg Tablet] 5 mg PO DAILY 11/12/19 Calcium Acetate [Phoslo 667 mg Capsule] 667 mg PO MEALS #90 capsule 11/15/19 Docusate Sodium [Colace 100 mg Capsule] 100 mg PO BID capsule 11/15/19 Duloxetine HCl [Cymbalta 30 mg Capsule.dr] 30 mg PO DAILY capsule.dr 11/15/19 Guaifenesin [Robitussin Syrup 200 mg/10 ml Ud Cup] 200 mg PO Q4HP PRN udc 11/15/19 Nitrofurantoin Monohyd/M-Cryst [Macrobid 100 mg Capsule] 100 mg PO BID 7 Days #14 cap 03/31/20 Allergies/Adverse Reactions: codeine Adverse Reaction (Intermediate, Verified 03/31/20 00:22) HAY Allergy (Uncoded 02/12/20 04:12) HAY FEVER Allergy (Uncoded 02/12/20 04:12) Review of Systems All systems: reviewed and no additional remarkable complaints except as stated Gastrointestinal: PRESENT: abdominal pain, other - Purulent discharge from perit parikh tube Genitourinary: PRESENT: other - With retained urine urinary obstruction Physical Exam Vital Signs: Temp Pulse Resp BP Pulse Ox 97.8 F 80 20 149/53 H 94 04/07/20 16:28 04/07/20 12:19 04/07/20 12:19 04/07/20 12:19 04/07/20 12:19 Intake & Output 04/06/20 04/07/20 04/08/20 06:59 06:59 06:59 Intake Total 50 Balance 50 Weight 78.2 kg General appearance: PRESENT: cooperative, severe distress, well-developed, well- nourished Head exam: PRESENT: atraumatic, normocephalic Eye exam: PRESENT: conjunctiva pale, EOMI, PERRLA. ABSENT: scleral icterus Ear exam: PRESENT: normal external ear exam. ABSENT: bleeding, drainage Mouth exam: PRESENT: dry mucosa, tongue midline Neck exam: ABSENT: carotid bruit, lymphadenopathy, thyromegaly, tracheostomy Respiratory exam: PRESENT: clear to auscultation yair, symmetrical, unlabored. ABSENT: rales, rhonchi, tachypnea, wheezes Cardiovascular exam: PRESENT: RRR, +S1, +S2. ABSENT: diastolic murmur, irregular rhythm, systolic murmur, tachycardia GI/Abdominal exam: PRESENT: diminished bowel sounds, distended, soft, tenderness - Extremely tender especially on the right side. The right upper quadrant peritoneal catheter has been removed. Rectal exam: PRESENT: deferred Gentrourinary exam: PRESENT: indwelling catheter Extremities exam: PRESENT: pedal edema Musculoskeletal exam: PRESENT: ambulatory. ABSENT: deformity, dislocation Neurological exam: PRESENT: alert, awake, oriented to person, oriented to place, oriented to time, oriented to situation, CN II-XII grossly intact. ABSENT: altered Psychiatric exam: PRESENT: appropriate affect - Affect reflects his severe pain. ABSENT: agitated, anxious Focused psych exam: ABSENT: delusional, paranoid, restlessness Skin exam: PRESENT: dry, normal color, warm. ABSENT: rash Results Laboratory Results: 04/07/20 13:50 04/07/20 13:50 01/13/21 01/13/21 01/13/21 13:15 13:50 13:50 WBC 9.4 RBC 3.48 L Hgb 11.0 L Hct 33.5 L MCV 96 MCH 31.7 MCHC 32.9 RDW 13.7 Plt Count 316 Seg Neutrophils % 81.9 H Sodium 142.3 Potassium 4.4 Chloride 98 Carbon Dioxide 30 Anion Gap 14 BUN 57 H Creatinine 7.77 H Est GFR ( Amer) 8 L Glucose 241 H Calcium 9.2 Total Bilirubin 0.8 AST 16 L Alkaline Phosphatase 114 Total Protein 6.7 Albumin 3.5 Urine Color YELLOW Urine Appearance TURBID Urine pH 6.0 Ur Specific [place] 1.018 Urine Protein 100 H Urine Glucose (UA) NEGATIVE Urine Ketones NEGATIVE Urine Blood SMALL H Urine Nitrite NEGATIVE Ur Leukocyte Esterase MODERATE H Urine WBC (Auto) >182 Urine RBC (Auto) 20 Fluid Type Fluid Source Fluid Color Fluid Appearance Fluid Viscosity Fluid WBC Fluid RBC 04/07/20 15:04 WBC RBC Hgb Hct MCV MCH MCHC RDW Plt Count Seg Neutrophils % Sodium Potassium Chloride Carbon Dioxide Anion Gap BUN Creatinine Est GFR ( Amer) Glucose Calcium Total Bilirubin AST Alkaline Phosphatase Total Protein Albumin Urine Color Urine Appearance Urine pH Ur Specific [place] Urine Protein Urine Glucose (UA) Urine Ketones Urine Blood Urine Nitrite Ur Leukocyte Esterase Urine WBC (Auto) Urine RBC (Auto) Fluid Type Cancelled Fluid Source Cancelled Fluid Color Cancelled Fluid Appearance Cancelled Fluid Viscosity Cancelled Fluid WBC Cancelled Fluid RBC Cancelled Impressions: Abdomen/Pelvis CT 04/07/20 13:35 IMPRESSION: 1. Moraes catheter within the urinary bladder which demonstrates persistent diffuse wall thickening and adjacent fat stranding, similar to prior exam. No definite fistulous connection is identified with the adjacent structures on noncontrast CT. 2. Moderate volume ascites. Diffuse subcutaneous edema. 3. Small right pleural effusion and chronic right pleural thickening. Adjacent opacities may simply reflect atelectasis. Component of infection or aspiration is not excluded. 4. Colon diverticulosis. 5. Stable renal cysts and bilateral indeterminate renal lesions. Assessment and Plan - Diagnosis (1) Bacterial peritonitis Is this a current diagnosis for this admission?: Yes (2) Acute urinary retention Is this a current diagnosis for this admission?: Yes (3) Chronic diastolic heart failure Is this a current diagnosis for this admission?: Yes (4) Abdominal pain Qualifiers: Abdominal location: right upper quadrant Qualified Code(s): R10.11 - Right upper quadrant pain Is this a current diagnosis for this admission?: Yes (5) End stage renal disease on dialysis Is this a current diagnosis for this admission?: Yes (6) Hyperglycemia due to type 2 diabetes mellitus Qualifiers: Diabetes mellitus equipment [employer] insulin use: with fdc use Qualified Code(s): E11.65 - Type 2 diabetes mellitus with hyperglycemia; Z79.4 - senior living (current) use of insulin Is this a current diagnosis for this admission?: Yes (7) Coronary artery disease Qualifiers: Coronary Disease-Associated Artery/Lesion type: [place] artery [place] vs. transplanted heart: [place] heart Associated angina: without angina Qualified Code(s): I25.10 - Atherosclerotic heart disease of [place] coronary artery without angina pectoris Is this a current diagnosis for this admission?: Yes (8) Gastroesophageal reflux disease Qualifiers: Esophagitis presence: without esophagitis Qualified Code(s): K21.9 - Gastro-esophageal reflux disease without esophagitis Is this a current diagnosis for this admission?: Yes (9) Hypercholesterolemia Is this a current diagnosis for this admission?: Yes (10) Depression Qualifiers: Depression Type: unspecified Qualified Code(s): F32.9 - Major depressive disorder, single episode, unspecified Is this a current diagnosis for this admission?: Yes (11) UTI (urinary tract infection) Qualifiers: Urinary tract infection type: site unspecified Hematuria presence: without hematuria Qualified Code(s): N39.0 - Urinary tract infection, site not specified Is this a current diagnosis for this admission?: Yes - Plan Summary Summary: (1) Bacterial peritonitis (2) Acute urinary retention (3) Chronic diastolic heart failure (4) Abdominal pain (5) End stage renal disease on dialysis (6) Hyperglycemia due to type 2 diabetes mellitus (7) Coronary artery disease (8) Gastroesophageal reflux disease (9) Hypercholesterolemia (10) Depression (11) urinary tract infection 04/07/2020 Peritonitis-vancomycin and cefepime. Pharmacy to dose per renal function. Peritoneal catheter was removed. Urinary outlet obstruction with urinary tract infection-antibiotics as above. The patient has a history of prostatic hypertrophy. Continue Proscar and substitute doxazosin for terazosin. Chronic diastolic heart failure-continue current regimen. Consider diuretic therapy if needed. Abdominal pain-secondary to peritonitis End-stage renal disease on hemodialysis-Dr. Evans to assess the patient. Hyperglycemia due to diabetes-we will start Lantus therapy at a lower dose than the patient normally takes. We will also utilize sliding scale with Accu-Cheks before meals and at bedtime Gastroesophageal reflux disease-continue H2 zev therapy Hypercholesterolemia-continue atorvastatin Depression-continue Cymbalta With the severity of this infection and possible infections in the urinary tract and abdominal cavity the patient is extremely ill. Will need to monitor closely. Will place on telemetry. We will need to monitor intake and output. - Time Time Spent with patient: 35 or more minutes Medications reviewed and adjusted accordingly: Yes Anticipated Discharge Disposition: Unknown Anticipated Discharge Timeframe: Unknown - Inpatient Certification Based on my medical assessment, after consideration of the patient's comorbidities, presenting symptoms, or acuity I expect that the services needed warrant INPATIENT care.: Yes I certify that my determination is in accordance with my understanding of Medicare's requirements for reasonable and necessary INPATIENT services [42 CFR 412.3e].: Yes Medical Necessity: Significant Comorbidiites Make Outpatient Treatment Too Risky, Need Close Monitoring Due to Risk of Patient Decompensation, Need For Continuous Telemetry Monitoring, Need for Pain Control, Need for IV Antibiotics
[2020-04-07] MEDS ORDERED: INSULIN GLARGINE,HUM.REC.ANLOG 1,000 UNIT/10 ML VIAL (PYX) SUBCUT ONE (21:38)
[2020-04-07] MEDS: ASPIRIN 81 MG TABLET, ENT COATED PO SCH (21:41)
[2020-04-07] MEDS: FAMOTIDINE 20 MG TABLET PO SCH (21:41)
[2020-04-07] MEDS: HEPARIN SOD (PORCINE) 5,000 UNIT/ML 1 ML VIAL SUBCUT SCH (21:42)
[2020-04-07] MEDS: ATORVASTATIN CALCIUM 80 MG TABLET PO SCH (21:42)
[2020-04-07] MEDS: INSULIN REG, HUMAN 100 UNIT/ML 3 ML VIAL (PYX) SUBCUT SCH (21:43)
[2020-04-07] MEDS: INSULIN GLARGINE,HUM.REC.ANLOG 1,000 UNIT/10 ML VIAL SUBCUT SCH (21:43)
[2020-04-07] MEDS ORDERED: CARVEDILOL 12.5 MG TABLET PO SCH (22:00)
[2020-04-07] MEDS ORDERED: CEFEPIME 2 GM/D5W RTU 2 GM/50 ML RTUPB IV SCH (22:00)
[2020-04-07] MEDS ORDERED: FAMOTIDINE 20 MG TABLET PO SCH (22:00)
[2020-04-07] MEDS ORDERED: DOXAZOSIN MESYLATE 2 MG TABLET PO SCH (22:00)
[2020-04-07] MEDS ORDERED: HYDROMORPHONE HCL INJ/PF 2 MG/ML AMPULE IV PRN (23:14)
[2020-04-08] MEDS: HEPARIN SOD (PORCINE) 5,000 UNIT/ML 1 ML VIAL SUBCUT SCH ×3 (05:13→21:52)
[2020-04-08] MEDS ORDERED: NORMAL SALINE 1000 ML 1,000 ML IV ONE ×3 (08:17→17:59)
[2020-04-08] MEDS ORDERED: ACETAMINOPHEN 325 MG TABLET PO PRN (08:21)
--- NOTE | 2020-04-08 08:23 | PDOC PROGRESS REPORT ---
Subjective Date:: 04/08/20 Reason For Visit: URINARY RETENTION, ACUTE URINARY RETENTION, BACTE- Patient states he feels better. Preparing for dialysis today. No fever overnight. Physical Exam Vital Signs: Temp Pulse Resp BP Pulse Ox 98.3 F 59 L 18 85/40 L 95 04/08/20 07:00 04/08/20 07:00 04/08/20 07:00 04/08/20 07:00 04/08/20 07:00 Intake & Output 04/07/20 04/08/20 04/09/20 06:59 06:59 06:59 Intake Total 50 Output Total 30 Balance 20 Weight 80.3 kg General appearance: PRESENT: no acute distress GI/Abdominal exam: PRESENT: other - Abdominal wall dressings removed. Persisting erythema and seropurulent discharge from cephalad most wound. Results Laboratory Results: 04/07/20 13:50 04/07/20 13:50 04/07/20 04/07/20 04/07/20 13:15 13:50 13:50 WBC 9.4 RBC 3.48 L Hgb 11.0 L Hct 33.5 L MCV 96 MCH 31.7 MCHC 32.9 RDW 13.7 Plt Count 316 Seg Neutrophils % 81.9 H Sodium 142.3 Potassium 4.4 Chloride 98 Carbon Dioxide 30 Anion Gap 14 BUN 57 H Creatinine 7.77 H Est GFR ( Amer) 8 L Glucose 241 H Calcium 9.2 Total Bilirubin 0.8 AST 16 L Alkaline Phosphatase 114 Total Protein 6.7 Albumin 3.5 Urine Color YELLOW Urine Appearance TURBID Urine pH 6.0 Ur Specific [place] 1.018 Urine Protein 100 H Urine Glucose (UA) NEGATIVE Urine Ketones NEGATIVE Urine Blood SMALL H Urine Nitrite NEGATIVE Ur Leukocyte Esterase MODERATE H Urine WBC (Auto) >182 Urine RBC (Auto) 20 Fluid Type Fluid Source Fluid Color Fluid Appearance Fluid Viscosity Fluid WBC Fluid RBC 04/07/20 15:04 WBC RBC Hgb Hct MCV MCH MCHC RDW Plt Count Seg Neutrophils % Sodium Potassium Chloride Carbon Dioxide Anion Gap BUN Creatinine Est GFR ( Amer) Glucose Calcium Total Bilirubin AST Alkaline Phosphatase Total Protein Albumin Urine Color Urine Appearance Urine pH Ur Specific [place] Urine Protein Urine Glucose (UA) Urine Ketones Urine Blood Urine Nitrite Ur Leukocyte Esterase Urine WBC (Auto) Urine RBC (Auto) Fluid Type Cancelled Fluid Source Cancelled Fluid Color Cancelled Fluid Appearance Cancelled Fluid Viscosity Cancelled Fluid WBC Cancelled Fluid RBC Cancelled Impressions: Abdomen/Pelvis CT 04/07/20 13:35 IMPRESSION: 1. Moraes catheter within the urinary bladder which demonstrates persistent diffuse wall thickening and adjacent fat stranding, similar to prior exam. No definite fistulous connection is identified with the adjacent structures on noncontrast CT. 2. Moderate volume ascites. Diffuse subcutaneous edema. 3. Small right pleural effusion and chronic right pleural thickening. Adjacent opacities may simply reflect atelectasis. Component of infection or aspiration is not excluded. 4. Colon diverticulosis. 5. Stable renal cysts and bilateral indeterminate renal lesions. Assessment & Plan - Diagnosis (1) Open wound, abdominal wall, lateral Is this a current diagnosis for this admission?: Yes Plan: Impression: Post paracentesis removal right lateral abdominal wall with persisting cellulitis and seropurulent discharge. Plan: 1. The patient states area is better, there is persisting inflammatory changes at the site. Patient in house less than 24 hours. Will allow intravenous antibiotics another 24 hours for effect. If site still still, will debride at bedside with local anesthesia. 2. This was discussed with patient and nursing staff. - Time Anticipated Discharge Disposition: Home, Self Care Anticipated Discharge Timeframe: within 72 hours
[2020-04-08] MEDS: INSULIN REG, HUMAN 100 UNIT/ML 3 ML VIAL (PYX) SUBCUT SCH ×4 (08:37→21:51)
[2020-04-08] MEDS: DULOXETINE HCL 30 MG CAPSULE.DR PO SCH (09:16)
[2020-04-08] MEDS: FINASTERIDE 5 MG TABLET PO SCH (09:16)
[2020-04-08] MEDS ORDERED: DOCUSATE SODIUM 100 MG CAPSULE PO SCH (10:00)
[2020-04-08] MEDS ORDERED: ISOSORBIDE MONONITRATE 30 MG TAB.ER.24H PO SCH (10:00)
[2020-04-08 10:23] LABS: ABSOLUTE BASOPHILS # (AUTO) 0.1 10^3/uL (0.0-0.2); ABSOLUTE EOSINOPHILS # (AUTO) 0.2 10^3/uL (0.0-0.6); ABSOLUTE LYMPHOCYTES (AUTO) 0.6 10^3/uL (0.5-4.7); ABSOLUTE MONOCYTES (AUTO) 0.7 10^3/uL (0.1-1.4); ABSOLUTE NEUT (AUTO) 5.2 10^3/uL (1.7-8.2); BASOPHILS % (AUTO) 1.3 % (0-2); EOSINOPHILS % (AUTO) 3.1 % (0-6); HEMATOCRIT 34.1 % (37.9-51.0); HEMOGLOBIN 11.1 g/dL (13.5-17.0); LYMPHOCYTES % (AUTO) 9.1 % (13-45); MEAN CORPUSCULAR HEMOGLOBIN 31.4 pg (27.0-33.4); MEAN CORPUSCULAR HGB CONC 32.7 g/dL (32.0-36.0); MEAN CORPUSCULAR VOLUME 96 fl (80-97); MONOCYTES % (AUTO) 10.5 % (3-13); PLATELET COUNT 229 10^3/uL (150-450); RED BLOOD COUNT 3.54 10^6/uL (4.35-5.55); TOTAL CELLS COUNTED % (AUTO) 100 %; WHITE BLOOD COUNT 6.8 10^3/uL (4.0-10.5)
[2020-04-08 10:43] LABS: ALBUMIN 2.8 g/dL (3.5-5.0); ALKALINE PHOSPHATASE 83 U/L (38-126); ANION GAP 13 (5-19); ASPARTATE AMINO TRANSFERASE 13 U/L (17-59); BILIRUBIN,DIRECT 0.6 mg/dL (0.0-0.4); BILIRUBIN,TOTAL 0.6 mg/dL (0.2-1.3); BLOOD UREA NITROGEN 60 mg/dL (7-20); CALCIUM 8.4 mg/dL (8.4-10.2); CARBON DIOXIDE 25 mmol/L (22-30); CHLORIDE 100 mmol/L (98-107); GLUCOSE 186 mg/dL (75-110); PHOSPHORUS 6.6 mg/dL (2.5-4.5); TOTAL PROTEIN 5.6 g/dL (6.3-8.2)
[2020-04-08 11:32] LABS: ABSOLUTE BASOPHILS # (AUTO) 0.1 10^3/uL (0.0-0.2); ABSOLUTE EOSINOPHILS # (AUTO) 0.3 10^3/uL (0.0-0.6); ABSOLUTE LYMPHOCYTES (AUTO) 0.9 10^3/uL (0.5-4.7); ABSOLUTE MONOCYTES (AUTO) 1.1 10^3/uL (0.1-1.4); ABSOLUTE NEUT (AUTO) 6.5 10^3/uL (1.7-8.2); BASOPHILS % (AUTO) 0.9 % (0-2); EOSINOPHILS % (AUTO) 3.6 % (0-6); HEMATOCRIT 26.3 % (37.9-51.0); LYMPHOCYTES % (AUTO) 10.5 % (13-45); MEAN CORPUSCULAR HGB CONC 32.9 g/dL (32.0-36.0); MEAN CORPUSCULAR VOLUME 97 fl (80-97); MONOCYTES % (AUTO) 11.8 % (3-13); PLATELET COUNT 244 10^3/uL (150-450); RED BLOOD COUNT 2.71 10^6/uL (4.35-5.55); RED CELL DISTRIBUTION WIDTH 13.8 % (11.5-14.0); SEGMENTED NEUTROPHILS % (AUTO) 73.2 % (42-78); TOTAL CELLS COUNTED % (AUTO) 100 %; WHITE BLOOD COUNT 8.9 10^3/uL (4.0-10.5)
[2020-04-08 11:34] LABS: HEMOGLOBIN 8.7 g/dL (13.5-17.0)
[2020-04-08] MEDS ORDERED: LIDOCAINE 1% INJ-PF (10 MG/ML) 30 ML SDV ONE (11:38)
[2020-04-08] MEDS ORDERED: HYDROMORPHONE HCL INJ/PF 2 MG/ML AMPULE ONE (11:45)
--- NOTE | 2020-04-08 12:17 | PDOC CONSULTATION ---
Consultation Consult Date: 04/08/20 Provider Consulted: Eleno GANDHI Consult reason:: ESRD for HD. History of Present Illness Admission Date/PCP: 04/07/20 17:41 [facility] History of Present Illness: CELIO WAGNER is a 69 year old male with a complex history including Diabetes mellitus, hypertension, ESRD on hemodialysis last dialysis being on Sunday, coronary artery disease with myocardial infarction and stents, prostatic hypertrophy with bladder outlet obstruction. He is a poor historian. He states that he has been having progressive ascites from apparent congestive heart failure and had a continuous draining peritoneal catheter placed last week in [place]. He has now developed pain of the abdomen with purulent discharge suggestive of infected catheter.He says that he has also had a chronic indwelling Moraes catheter for obstructive uropathy and current evaluations in the ER revealed that he also had a UTI which necessitated removal and replacement of the Moraes catheter. He says currently he feels a whole lot better. He denies any history of fever or chills. Abdominal pains are better since he has had drainage of the past as well as initiation of antibiotics. Since admission and after evaluation in the ER he has had a peritoneal catheter removed and the Moraes catheter replaced as mentioned earlier. He has been begun on antibiotics. Currently he looks comfortable and in no distress. He is not having any fever or shaking chills. Blood sugars are stable. Past Medical History Cardiac Medical History: Reports: CHF-Diastolic, Coronary Artery Disease, Hyperlipidemia, Hypertension-primary, Myocardial Infarction - X2 WITH STENTS 2004, 2009, Pulmonary Hypertension Denies: Atrial Fibrillation, DVT, Pulmonary Embolism Pulmonary Medical History: Reports: Chronic Obstructive Pulmonary Disease ( COPD), Pneumonia, Respiratory Failure Denies: Asthma, Bronchitis Neurological Medical History: Denies: Seizures Endocrine Medical History: Reports: Diabetes Mellitus Type 2 Denies: Diabetes Mellitus Type 1, Hyperthyroidism, Hypothyroidism Complications of Diabetes: Reports: Autonomic Neuropathy, Diabetic Foot Ulcer, Nephropathy, Retinopathy Renal/ Medical History: Reports: Benign Prostatic Hyperplasia, End Stage Renal Disease, Hypocalcemia, Hyperphosphatemia, Secondary Hyperparathyroidism GI Medical History: Reports: Diverticulitis Denies: Cirrhosis, Hepatitis Musculoskeltal Medical History: Denies: Arthritis, Gout Skin Medical History: Denies: Eczema, Psoriasis Psychiatric Medical History: Reports: Depression Infectious Medical History: Reports: Clostridium Difficile Past Surgical History Past Surgical History: Reports: Cardiac Catheterization, Coronary Stent - X2 , , Dialysis Access Surgery PD, Other - Small bowel resection; adhesion lysis; peritoneal dialysis access Social History Lives with: Family Smoking Status: Unknown if Ever Smoked Electronic Cigarette use?: No Frequency of Alcohol Use: None Hx Recreational Drug Use: No Drugs: None Hx Prescription Drug Abuse: No - Advance Directive Resuscitation Status: Full Code Family History Parental Family History Reviewed: Yes - Negative for ESRD Children Family History Reviewed: Yes - Negative for ESRD Sibling(s) Family History Reviewed.: No Medication/Allergy Home Medications: Aspirin [Aspirin 81 mg Chewable Tablet] 81 mg PO DAILY 10/09/18 Atorvastatin Calcium [Lipitor 80 mg Tablet] 80 mg PO QHS 10/09/18 Isosorbide Mononitrate [Imdur 30 mg Tablet.er] 30 mg PO DAILY 10/09/18 Carvedilol [Coreg 12.5 mg Tablet] 12.5 mg PO Q12 11/12/19 Famotidine [Pepcid 20 mg Tablet] 20 mg PO QHS 11/12/19 Finasteride [Proscar 5 mg Tablet] 5 mg PO DAILY 11/12/19 Albuterol Sulfate [Ventolin 0.083% Neb 2.5 mg/3 ml Ampul] 1 vial NEB QID 04/08/20 Escitalopram Oxalate [Lexapro 10 mg Tablet] 20 mg PO DAILY 04/08/20 Insulin Glargine,Hum.rec.anlog [Lantus (Pyxis) Insulin 100 Unit/1 ml 10 ml] 80 unit SUBCUT DAILY 04/08/20 Allergies/Adverse Reactions: codeine Adverse Reaction (Intermediate, Verified 03/31/20 00:22) HAY Allergy (Uncoded 02/12/20 04:12) HAY FEVER Allergy (Uncoded 02/12/20 04:12) Review of Systems Constitutional: PRESENT: weakness. ABSENT: fever(s), headache(s) Ears: ABSENT: hearing changes Nose, Mouth, and Throat: ABSENT: mouth pain, sore throat Cardiovascular: ABSENT: chest pain, dyspnea on exertion, edema, orthropnea, palpitations Gastrointestinal: PRESENT: abdominal pain, nausea. ABSENT: coffee ground emesis, diarrhea, dysphagia, heartburn, hematemesis, vomiting Genitourinary: ABSENT: dysuria, hematuria Musculoskeletal: ABSENT: deformity, joint swelling Integumentary: ABSENT: diaphoresis, lesions, pruritus, rash Neurological: ABSENT: confusion, focal weakness, frequent falls, lack of coordination, memory loss Endocrine: ABSENT: heat intolerance, polydipsia Hematologic/Lymphatic: ABSENT: easy bruising, lymphadenopathy Physical Exam Vital Signs: Temp Pulse Resp BP Pulse Ox 98.3 F 59 L 18 101/38 L 95 04/08/20 10:00 04/08/20 07:00 04/08/20 07:00 04/08/20 10:35 04/08/20 07:00 Intake & Output 04/07/20 04/08/20 04/09/20 06:59 06:59 06:59 Intake Total 50 1000 Output Total 30 Balance 20 1000 Weight 80.3 kg General appearance: PRESENT: no acute distress Ear exam: PRESENT: normal external ear exam Mouth exam: PRESENT: neck supple. ABSENT: moist Neck exam: ABSENT: lymphadenopathy, meningismus, tenderness, thyromegaly, tracheal deviation Respiratory exam: PRESENT: clear to auscultation yair, decreased breath sounds. ABSENT: crackles Cardiovascular exam: PRESENT: RRR, +S1, +S2. ABSENT: rubs GI/Abdominal exam: PRESENT: normal bowel sounds, soft, tenderness. ABSENT: organomegaly, rebound Extremities exam: PRESENT: pedal edema Neurological exam: PRESENT: alert, awake, oriented to person, oriented to place Psychiatric exam: PRESENT: appropriate affect Skin exam: PRESENT: erythema. ABSENT: cyanosis, mottled, rash Results Laboratory Results: 04/08/20 11:19 04/08/20 10:00 04/07/20 04/07/20 04/07/20 13:15 13:50 13:50 WBC 9.4 RBC 3.48 L Hgb 11.0 L Hct 33.5 L MCV 96 MCH 31.7 MCHC 32.9 RDW 13.7 Plt Count 316 Seg Neutrophils % 81.9 H Sodium 142.3 Potassium 4.4 Chloride 98 Carbon Dioxide 30 Anion Gap 14 BUN 57 H Creatinine 7.77 H Est GFR ( Amer) 8 L Est GFR (Non-Af Amer) Glucose 241 H Lactic Acid Calcium 9.2 Ionized Calcium [place] Phosphorus Magnesium Total Bilirubin 0.8 AST 16 L Alkaline Phosphatase 114 Total Protein 6.7 Albumin 3.5 Urine Color YELLOW Urine Appearance TURBID Urine pH 6.0 Ur Specific [place] 1.018 Urine Protein 100 H Urine Glucose (UA) NEGATIVE Urine Ketones NEGATIVE Urine Blood SMALL H Urine Nitrite NEGATIVE Ur Leukocyte Esterase MODERATE H Urine WBC (Auto) >182 Urine RBC (Auto) 20 Fluid Type Fluid Source Fluid Color Fluid Appearance Fluid Viscosity Fluid WBC Fluid RBC 04/07/20 04/08/20 04/08/20 15:04 10:00 10:00 WBC 6.8 RBC 3.54 L Hgb 11.1 L Hct 34.1 L MCV 96 MCH 31.4 MCHC 32.7 RDW 14.0 Plt Count 229 Seg Neutrophils % 76.0 Sodium Cancelled Potassium Cancelled Chloride Cancelled Carbon Dioxide Cancelled Anion Gap Cancelled BUN Cancelled Creatinine Cancelled Est GFR ( Amer) Cancelled Est GFR (Non-Af Amer) Cancelled Glucose Cancelled Lactic Acid Calcium Cancelled Ionized Calcium [place] Phosphorus Cancelled Magnesium 1.8 Total Bilirubin AST Alkaline Phosphatase Total Protein Albumin Cancelled Urine Color Urine Appearance Urine pH Ur Specific [place] Urine Protein Urine Glucose (UA) Urine Ketones Urine Blood Urine Nitrite Ur Leukocyte Esterase Urine WBC (Auto) Urine RBC (Auto) Fluid Type Cancelled Fluid Source Cancelled Fluid Color Cancelled Fluid Appearance Cancelled Fluid Viscosity Cancelled Fluid WBC Cancelled Fluid RBC Cancelled 04/08/20 04/08/20 04/08/20 10:00 10:00 10:00 WBC RBC Hgb Hct MCV MCH MCHC RDW Plt Count Seg Neutrophils % Sodium 138.3 Potassium 4.0 Chloride 100 Carbon Dioxide 25 Anion Gap 13 BUN 60 H Creatinine 7.78 H Est GFR ( Amer) 8 L Est GFR (Non-Af Amer) Glucose 186 H Lactic Acid 1.2 Calcium 8.4 Ionized Calcium [place] 1.12 L Phosphorus 6.6 H Magnesium Total Bilirubin 0.6 AST 13 L Alkaline Phosphatase 83 Total Protein 5.6 L Albumin 2.8 L Urine Color Urine Appearance Urine pH Ur Specific [place] Urine Protein Urine Glucose (UA) Urine Ketones Urine Blood Urine Nitrite Ur Leukocyte Esterase Urine WBC (Auto) Urine RBC (Auto) Fluid Type Fluid Source Fluid Color Fluid Appearance Fluid Viscosity Fluid WBC Fluid RBC 04/08/20 11:19 WBC 8.9 RBC 2.71 L Hgb 8.7 L D Hct 26.3 L MCV 97 MCH 32.0 MCHC 32.9 RDW 13.8 Plt Count 244 Seg Neutrophils % 73.2 Sodium Potassium Chloride Carbon Dioxide Anion Gap BUN Creatinine Est GFR ( Amer) Est GFR (Non-Af Amer) Glucose Lactic Acid Calcium Ionized Calcium [place] Phosphorus Magnesium Total Bilirubin AST Alkaline Phosphatase Total Protein Albumin Urine Color Urine Appearance Urine pH Ur Specific [place] Urine Protein Urine Glucose (UA) Urine Ketones Urine Blood Urine Nitrite Ur Leukocyte Esterase Urine WBC (Auto) Urine RBC (Auto) Fluid Type Fluid Source Fluid Color Fluid Appearance Fluid Viscosity Fluid WBC Fluid RBC Impressions: Abdomen/Pelvis CT 04/07/20 13:35 IMPRESSION: 1. Moraes catheter within the urinary bladder which demonstrates persistent diffuse wall thickening and adjacent fat stranding, similar to prior exam. No definite fistulous connection is identified with the adjacent str uctures on noncontrast CT. 2. Moderate volume ascites. Diffuse subcutaneous edema. 3. Small right pleural effusion and chronic right pleural thickening. Adjacent opacities may simply reflect atelectasis. Component of infection or aspiration is not excluded. 4. Colon diverticulosis. 5. Stable renal cysts and bilateral indeterminate renal lesions. Assessment & Plan - Diagnosis (1) Bacterial peritonitis Is this a current diagnosis for this admission?: Yes Plan: Acute lateral peritonitis in the setting of continuous indwelling peritoneal catheter for drainage of ascites. This peritoneal catheter has been discussed continued by Dr. Hong and patient begun on antibiotics. Patient already starting to feel better. (2) Urinary retention Plan: Chronic indwelling Moraes catheter which has been replaced in the setting of UTI. He is unsure of urology follow-up which needs to be done post discharge. (3) Diabetes mellitus type 2 in nonobese Plan: As per hospitalist. (4) End stage renal disease on dialysis Is this a current diagnosis for this admission?: Yes Plan: No indications for acute dialysis for today.Plan for dialysis tomorrow. Orders are being placed. (5) HTN (hypertension) Qualifiers: Hypertension type: essential hypertension Qualified Code(s): I10 - Essential (primary) hypertension Plan: Patient's blood pressure is low and actually dropped into the 80s systolic. He was fluid resuscitated and has done well. Looks like he possibly has early septic shock. Monitor carefully. (6) UTI (urinary tract infection) Qualifiers: Urinary tract infection type: site unspecified Hematuria presence: without hematuria Qualified Code(s): N39.0 - Urinary tract infection, site not specified Is this a current diagnosis for this admission?: Yes Plan: Patient on antibiotics pending cultures. (7) Bacteremia Plan: Patient growing positive cocci. Patient on antibiotics pending further sensitivity report.
[2020-04-08] MEDS ORDERED: HYDROMORPHONE HCL INJ/PF 2 MG/ML AMPULE IV ONE (12:30)
[2020-04-08] MEDS ORDERED: HYDROMORPHONE HCL INJ/PF 2 MG/ML AMPULE IV PRN (12:36)
--- NOTE | 2020-04-08 12:54 | Operative Report ---
Operative Report DATE OF SURGERY: 04/08/20 PREOPERATIVE DIAGNOSIS: Right lateral abdominal wall wounds POSTOPERATIVE DIAGNOSIS: Same with foreign body consistent with PTFE OPERATION: 1. Focused ultrasound of the abdominal wall right lateral side. 2. Excisional debridement wounds, foreign body and loop drain placement SURGEON: SYED HARPER ANESTHESIA: Local TISSUE REMOVED OR ALTERED: Pus, scar tissue, COMPLICATIONS: None ESTIMATED BLOOD LOSS: Minimal INTRAOPERATIVE FINDINGS: See below PROCEDURE: Consent provided Patient was placed in left lateral cubitus position, right side up. Timeout conducted. Focused ultrasound of the abdominal wall conducted with a variable frequency linear transducer. Findings were significant for a foreign body consistent with tube, or catheter. There body ws approximately 6 mm in diameter, and 2.5 cm in length. The skin including the 2 draining sites on the anterior lateral flank were prepped with Betadine and anesthetized 1% plain lidocaine. Using a #10 blade, the exit sites in the superior and inferior position were excised creating holes approximately 1-1/2 cm in diameter. We now connected the 2 wounds with a Gloria clamp. A small chunk of wound material sent for Gram stain, culture and sensitivity I now made a reasonable attempt to excise the chronic scar tissue from both wounds with scissors. From the cephalad direction, we encountered a foreign body consistent with PTFE material. Approximately 1 cm chunk of foreign body along with scar tissue was removed, photographed, and sent to pathology as foreign body right abdominal wall. Bleeding was encountered in the soft tissue scar at the cephalad opening and this was oversewn with 3-0 Vicryl suture. I made additional attempts to excise additional tissue, and foreign body from the inferior wound, however due to patient intolerance, the procedure was aborted. The final tract was reasonably well open, but again scar tissue and likely body remained. I placed a loop latex drain to maintain a communication between the 2 wounds, irrigated wounds with peroxide. Wound packed with iodoform gauze, covered with 4 x 4's Plan: 1. Discussed the above with hospitalist. Continue current management 2. We will check wound tomorrow, change dressing, and determine whether additional operative debridement will be required.
[2020-04-08] MEDS: NORMAL SALINE 1000 ML 1,000 ML IV PRN ×2 (15:25→21:45)
--- NOTE | 2020-04-08 18:26 | PDOC PROGRESS REPORT ---
Subjective Date:: 04/08/20 Subjective:: NAEO. This morning, he had severe hypotension requiring IVF resuscitation. BP has been fluid responsive and patient remains alert. Reason For Visit: URINARY RETENTION, ACUTE URINARY RETENTION, BACTE- Physical Exam Vital Signs: Temp Pulse Resp BP Pulse Ox 98.0 F 60 17 100/38 L 90 L 04/08/20 16:40 04/08/20 16:40 04/08/20 16:40 04/08/20 16:40 04/08/20 16:40 Intake & Output 04/07/20 04/08/20 04/09/20 06:59 06:59 06:59 Intake Total 50 2586 Output Total 30 40 Balance 20 2546 Weight 80.3 kg General appearance: PRESENT: no acute distress, cooperative Eye exam: ABSENT: scleral icterus Mouth exam: PRESENT: dry mucosa Throat exam: ABSENT: post pharyngeal erythema Neck exam: ABSENT: JVD Respiratory exam: PRESENT: clear to auscultation yair Cardiovascular exam: PRESENT: RRR GI/Abdominal exam: PRESENT: ascites, distended, normal bowel sounds, tenderness - RLQ, other - abdominal wall firm/tender/red at site of prior catheter. ABSENT: firm, guarding, rebound, rigid Gentrourinary exam: PRESENT: indwelling catheter Extremities exam: ABSENT: pedal edema Neurological exam: PRESENT: alert, awake Psychiatric exam: PRESENT: appropriate affect Skin exam: ABSENT: jaundice, petechiae, rash Results Laboratory Results: 04/08/20 11:19 04/08/20 10:00 04/08/20 04/08/20 04/08/20 10:00 10:00 10:00 WBC 6.8 RBC 3.54 L Hgb 11.1 L Hct 34.1 L MCV 96 MCH 31.4 MCHC 32.7 RDW 14.0 Plt Count 229 Seg Neutrophils % 76.0 Sodium Cancelled 138.3 Potassium Cancelled 4.0 Chloride Cancelled 100 Carbon Dioxide Cancelled 25 Anion Gap Cancelled 13 BUN Cancelled 60 H Creatinine Cancelled 7.78 H Est GFR ( Amer) Cancelled 8 L Est GFR (Non-Af Amer) Cancelled Glucose Cancelled 186 H Lactic Acid Calcium Cancelled 8.4 Ionized Calcium [place] Phosphorus Cancelled 6.6 H Magnesium 1.8 Total Bilirubin 0.6 AST 13 L Alkaline Phosphatase 83 Total Protein 5.6 L Albumin Cancelled 2.8 L 04/08/20 04/08/20 04/08/20 10:00 10:00 11:19 WBC 8.9 RBC 2.71 L Hgb 8.7 L D Hct 26.3 L MCV 97 MCH 32.0 MCHC 32.9 RDW 13.8 Plt Count 244 Seg Neutrophils % 73.2 Sodium Potassium Chloride Carbon Dioxide Anion Gap BUN Creatinine Est GFR ( Amer) Est GFR (Non-Af Amer) Glucose Lactic Acid 1.2 Calcium Ionized Calcium [place] 1.12 L Phosphorus Magnesium Total Bilirubin AST Alkaline Phosphatase Total Protein Albumin Impressions: Abdomen/Pelvis CT 04/07/20 13:35 IMPRESSION: 1. Moraes catheter within the urinary bladder which demonstrates persistent diffuse wall thickening and adjacent fat stranding, similar to prior exam. No definite fistulous connection is identified with the adjacent structures on noncontrast CT. 2. Moderate volume ascites. Diffuse subcutaneous edema. 3. Small right pleural effusion and chronic right pleural thickening. Adjacent opacities may simply reflect atelectasis. Component of infection or aspiration is not excluded. 4. Colon diverticulosis. 5. Stable renal cysts and bilateral indeterminate renal lesions. Assessment and Plan - Diagnosis (1) Sepsis associated hypotension Is this a current diagnosis for this admission?: Yes (2) Acute on chronic respiratory failure with hypoxemia Is this a current diagnosis for this admission?: Yes (3) Abdominal pain Qualifiers: Abdominal location: right upper quadrant Qualified Code(s): R10.11 - Right upper quadrant pain Is this a current diagnosis for this admission?: Yes (4) Acute urinary retention Is this a current diagnosis for this admission?: Yes (5) Bacteremia Is this a current diagnosis for this admission?: Yes (6) Bacterial peritonitis Is this a current diagnosis for this admission?: Yes (7) Open wound, abdominal wall, lateral Is this a current diagnosis for this admission?: Yes (8) Urinary retention Is this a current diagnosis for this admission?: Yes (9) Dehydration Is this a current diagnosis for this admission?: Yes (10) End stage renal disease on dialysis Is this a current diagnosis for this admission?: Yes (11) Generalized weakness Is this a current diagnosis for this admission?: Yes (12) Gram-positive bacteremia Is this a current diagnosis for this admission?: Yes (13) Hyperglycemia due to type 2 diabetes mellitus Qualifiers: Diabetes mellitus custodial insulin use: 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 He noted a change in the ascitic fluid, stating that it had become more cloudy and eventually looked like codie pus. He was getting less and less drainage through the drain. He developed increasing abdominal pain and a bloated abdomen and thus presented to the hospital. Incidentally, he has a chronic Moraes catheter in place at baseline, but removed it approximately 1 week prior to admission (unclear why). In the ED, a new Moraes catheter was placed for obstructive uropathy. His abdominal drain was removed by surgery, Dr. Hong, and the fluid was noted to be extremely purulent. BCx were obtained and he was started on broad spectrum IV antibiotics. Sepsis due to Bacterial peritonitis: BCx and fluid culture obtained in the ED are both growing GPC. - continue vancomycin and cefepime (Pharmacy to dose per renal function) - repeat BCx today - surgery consulted * peritoneal catheter removed 04/08 * he underwent a bedside abdominal incision debridement on 04/09 * per surgery, may require further debridement in the OR pending clinical course Hypotension: due to hypovolemia in the s/o sepsis. Fluid responsive. Patient is not altered and has a normal lactate. - he is receiving his third liter of IVF so far today - continuous IVF - encourage oral intake - monitor volume status closely in patient with known CHF Acute Abdominal Pain: due to peritonitis - controlled with Dilaudid 0.5 mg IV Q4H PRN BPH c/b chronic bladder outlet obstruction - Moraes catheter placed on 04/07 - HOLD home Proscar/terazosin due to low BP Chronic Diastolic CHF - HOLD all diuretics and BP meds in the s/o sepsis/hypotension Acute on Chronic Hypoxic Respiratory Failure: at home, he is chronically on 2 L O2 via NC - he is now on 3 L O2 via NC and is continuing to require IVF resuscitation ESRD: on HD MWF - nephrology consulted, HD tomorrow Hyperglycemia due to DM2: glucose well controlled on below regimen - SSI - Lantus 20 units daily Depression - continue home Cymbalta Greater than 30 minutes of CC time spent in the care of this patient. - Time Time Spent with patient: 35 or more minutes Anticipated Discharge Disposition: Home, Self Care Anticipated Discharge Timeframe: unknown
[2020-04-08] MEDS: ATORVASTATIN CALCIUM 80 MG TABLET PO SCH (21:50)
[2020-04-08] MEDS: FAMOTIDINE 20 MG TABLET PO SCH (21:50)
[2020-04-08] MEDS: ASPIRIN 81 MG TABLET, ENT COATED PO SCH (21:50)
[2020-04-08] MEDS: INSULIN GLARGINE,HUM.REC.ANLOG 1,000 UNIT/10 ML VIAL SUBCUT SCH (21:53)
[2020-04-08] MEDS: HYDROMORPHONE HCL INJ/PF 2 MG/ML AMPULE IV PRN (21:54)
[2020-04-08] MEDS ORDERED: CEFEPIME 1 GM/D5W RTU 1 GM/50 ML RTUPB IV SCH (22:00)
--- NOTE | 2020-04-08 22:26 | CDI QUERY ---
CDI Query CDI Review: We are seeking further clarification of documentation to reflect the severity of illness of your patient. Per Progress Notes: Sepsis due to Bacterial peritonitis: BCx and fluid culture obtained in the ED are both growing GPC. - continue vancomycin and cefepime (Pharmacy to dose per renal function) - repeat BCx today - surgery consulted peritoneal catheter removed 04/08 he underwent a bedside abdominal incision debridement on 04/09 per surgery, may require further debridement in the OR pending clinical course Per Op Report: Focused ultrasound of the abdominal wall conducted with a variable frequency linear transducer. Findings were significant for a foreign body consistent with tube, or catheter. The body was approximately 6 mm in diameter, and 2.5 cm in length. I now made a reasonable attempt to excise the chronic scar tissue from both wounds with scissors. From the cephalad direction, we encountered a foreign body consistent with PTFE material. Approximately 1 cm chunk of foreign body along with scar tissue was removed, photographed, and sent to pathology as foreign body right abdominal wall Based on your medical judgement, can you further clarify in the Progress Notes and carry through the Discharge Summary: Bacterial peritonitis 2/2 to indwelling peritoneal catheter Bacterial peritonitis unrelated to indwelling peritoneal catheter Unable to determine Other Thank you for your consideration. HELLEN Flores RN Clinical Surveyor Instrument Assistant Physician Advisor
[2020-04-09] MEDS ORDERED: EPOETIN ALFA-EPBX 20,000 UNIT in SYRINGE, DISPOSABLE, 1 EACH IV PRN (05:00)
[2020-04-09] MEDS: NORMAL SALINE 1000 ML 1,000 ML IV PRN (06:11)
[2020-04-09] MEDS: HEPARIN SOD (PORCINE) 5,000 UNIT/ML 1 ML VIAL SUBCUT SCH ×3 (06:12→22:04)
[2020-04-09] MEDS: HYDROMORPHONE HCL INJ/PF 2 MG/ML AMPULE IV PRN (06:20)
[2020-04-09 06:52] LABS: ALBUMIN 2.8 g/dL (3.5-5.0); ANION GAP 15 (5-19); BLOOD UREA NITROGEN 63 mg/dL (7-20); CALCIUM 8.1 mg/dL (8.4-10.2); CARBON DIOXIDE 21 mmol/L (22-30); CHLORIDE 104 mmol/L (98-107); GLUCOSE 76 mg/dL (75-110); PHOSPHORUS 6.8 mg/dL (2.5-4.5); POTASSIUM 4.7 mmol/L (3.6-5.0)
[2020-04-09] MEDS: INSULIN REG, HUMAN 100 UNIT/ML 3 ML VIAL (PYX) SUBCUT SCH ×4 (08:00→22:06)
[2020-04-09] MEDS: DULOXETINE HCL 30 MG CAPSULE.DR PO SCH (10:41)
[2020-04-09] MEDS: FINASTERIDE 5 MG TABLET PO SCH (10:41)
--- NOTE | 2020-04-09 11:08 | PDOC PROGRESS REPORT ---
Subjective Date:: 04/09/20 Reason For Visit: URINARY RETENTION, ACUTE URINARY RETENTION, BACTE- Physical Exam Vital Signs: Temp Pulse Resp BP Pulse Ox 98.8 F 64 16 126/43 H 96 04/09/20 03:08 04/09/20 03:08 04/09/20 03:08 04/09/20 03:08 04/09/20 03:08 Intake & Output 04/08/20 04/09/20 04/10/20 06:59 06:59 06:59 Intake Total 50 5701 Output Total 30 100 Balance 20 5601 Weight 80.3 kg 88.8 kg Results Laboratory Results: 04/08/20 11:19 04/09/20 06:13 04/08/20 04/08/20 04/09/20 10:00 11:19 06:13 WBC 8.9 RBC 2.71 L Hgb 8.7 L D Hct 26.3 L MCV 97 MCH 32.0 MCHC 32.9 RDW 13.8 Plt Count 244 Seg Neutrophils % 73.2 Sodium Cancelled 140.1 Potassium Cancelled 4.7 Chloride Cancelled 104 Carbon Dioxide Cancelled 21 L Anion Gap Cancelled 15 BUN Cancelled 63 H Creatinine Cancelled 8.00 H Est GFR ( Amer) Cancelled 8 L Est GFR (Non-Af Amer) Cancelled Glucose Cancelled 76 Calcium Cancelled 8.1 L Phosphorus Cancelled 6.8 H Magnesium 1.8 1.8 Albumin Cancelled 2.8 L 04/07/20 16:30 Blood Blood Culture (PCR) - Final Staphylococcus Species 04/07/20 15:04 Ascities Fluid Gram Stain - Final 04/07/20 15:04 Ascities Fluid Body Fluid Culture - Final Staphylococcus Aureus No Anaerobic Organisms 04/07/20 13:15 Moraes Catheter Urine Culture - Final NO GROWTH 2 DAYS Impressions: Abdomen/Pelvis CT 04/07/20 13:35 IMPRESSION: 1. Moraes catheter within the urinary bladder which demonstrates persistent diffuse wall thickening and adjacent fat stranding, similar to prior exam. No definite fistulous connection is identified with the adjacent structures on noncontrast CT. 2. Moderate volume ascites. Diffuse subcutaneous edema. 3. Small right pleural effusion and chronic right pleural thickening. Adjacent opacities may simply reflect atelectasis. Component of infection or aspiration is not excluded. 4. Colon diverticulosis. 5. Stable renal cysts and bilateral indeterminate renal lesions. Assessment & Plan - Diagnosis (1) Infection associated with peritoneal dialysis catheter Qualifiers: Encounter type: subsequent encounter Qualified Code(s): T85.71XD - Infection and inflammatory reaction due to peritoneal dialysis catheter, subsequent encounter Is this a current diagnosis for this admission?: Yes - Time Anticipated Discharge Disposition: unknown Anticipated Discharge Timeframe: unknown - Plan Summary Plan Summary: 69-year-old male status post removal of infected Tenckhoff catheter with subsequent debridement of the abdominal wall. There is still some lingering erythema of the abdominal wall, however the wound itself appears clean without purulence. Nate drain remains in place. Packing was removed, and replaced today. Continue with damp to dry dressing changes (with packing) twice per day. The patient complains of increasing abdominal girth today. I suspect this is related to his ascites. We will monitor for now, as he does not have any signs of respiratory compromise or other issue that would require urgent paracentesis. Surgery will continue to follow.
--- NOTE | 2020-04-09 17:07 | Progress Note ---
Provider Note Provider Note: [facility] ID teleconsultation. Patient not examined. Chart reviewed. This is a 69-year-old male with a history of diabetes, CAD, prostatic hypertrophy with bladder outlet obstruction requiring chronic indwelling Moraes, CHF complicated by chronic ascites status post peritoneal Tenckhoff catheter, ESRD who presented to the emergency room 04/07 with abdominal pain and purulent drainage from his peritoneal Tenckhoff catheter as well as what sounds like a pericatheter wound infection. This was apparently placed due to progressive ascites from CHF and was just placed last week in [place] although details are lacking. The peritoneal catheter was removed but due to his wounds he was taken to the OR 04/08 and was found to have a foreign body consistent with PTFE and a debridement was done and sent to microbiology. Part of the foreign body remains. A Nate drain was placed. He has a chronic indwelling Moraes catheter for obstructive uropathy, but apparently was not in place upon admission. This was replaced on admission and urinalysis with greater than 182 WBC, but his urine culture is no growth. CT imaging with persistent diffuse wall thickening of the bladder and moderate volume ascites. He has been on vancomycin and cefepime. He does not have a leukocytosis and has normal LFTs. Cultures from the ascitic fluid and from the blood are both growing MSSA. 1 set of blood cultures from 04/07 with both MSSA and what looks to be a coagulase- negative staph and the other set is no growth to date. Repeat blood cultures obtained 04/08 are no growth to date and his debridement is demonstrating gram- positive cocci in clusters. Assessment/Recommendations: 1. MSSA bacteremia - low grade, but complicated given host 2. What is likely to be MSSA catheter related peritonitis status post partial catheter removal with what sounds like some PTFE remaining. OR 04/08 -2D echo -cefazolin 1g IV daily while hospitalized or 2g/2g/3g post HD -Would recommend 4 weeks of the above therapy from 04/08 assuming the repeat cultures from 04/08 are no growth. Would prefer 4 weeks over 2 weeks given the retained PTFE and his dialysis status makes him high risk for recurrence. EOT: 05/06/20 -If 2D echo is without new valvulopathy and the patient has no new murmur would not recommend a TAMMIE given the low-grade nature of the bacteremia and a known source.
[2020-04-09] MEDS ORDERED: VANCOMYCIN HCL 750 MG in DEXTROSE 5%-WATER 250 ML IV SCH (18:00)
[2020-04-09] MEDS ORDERED: CEFAZOLIN INJ 1 GM VIAL IV SCH (19:30)
--- NOTE | 2020-04-09 19:42 | ADVANCED CARE ---
- Diagnosis (1) Sepsis associated hypotension Diagnosis Current: Yes (2) Acute on chronic respiratory failure with hypoxemia Diagnosis Current: Yes (3) Abdominal pain Diagnosis Current: Yes (4) Acute urinary retention Diagnosis Current: Yes (5) Bacteremia Diagnosis Current: Yes (6) Bacterial peritonitis Diagnosis Current: Yes (7) Open wound, abdominal wall, lateral Diagnosis Current: Yes (8) Urinary retention Diagnosis Current: Yes (9) Dehydration Diagnosis Current: Yes (10) End stage renal disease on dialysis Diagnosis Current: Yes (11) Generalized weakness Diagnosis Current: Yes (12) Gram-positive bacteremia Diagnosis Current: Yes (13) Hyperglycemia due to type 2 diabetes mellitus Diagnosis Current: Yes Attendance: patient, his and his daughter Resuscitation Status: Comfort Measures Only Discussion: Mr. Giles has ESRD on HD and end-stage CHF c/b chronic ascites requiring peritoneal catheter for drainage. He has had a recent prolonged (~1 month long) hospitalization where goals of care and home hospice were discussed with the patient/family. At that time, they decided to try a palliative approach (i.e. peritoneal catheter) to see how things would go, but they were not quite ready for comfort care. Unfortunately, he has now developed sepsis due to peritonitis and this catheter has been removed, and he has developed rapid re-accumulation of ascites. He notes that, even prior to this infection, he was miserable and in constant pain due to abdominal distention. His family notes that he has an exceedingly poor quality of life at baseline. We discussed that his options are very limited. We are unable to remove all the ascites with HD. In the past he required paracentesis every ~3 days due to severe CHF, until this peritoneal drain was placed. Now, the drain has been removed and he will require weeks of antibiotics to get rid of the infection completely before another peritoneal catheter could be safely replaced. In the meantime, paracentesis comes with the risk of re-introducing bacteria into the peritoneal cavity. Mr. Giles tells me that he has felt for some time that he was nearing . His tells me that he has been telling her this for the last couple of weeks, as he has been so uncomfortable at home. They are now ready to pursue comfort care measures, and would like to pursue home health services. Mrs. Giles has asked that HD be continued through Sunday in an effort to maximize Mr. Giles's remaining time at home. I think this is reasonable. We will also continue IV antibiotics while he remains inpatient and then plan to switch to PO antibiotics on discharge. Plan for discharge on Sunday to home with hospice. Discussed with SW that he will need a hospital bed. He already has Home O2. Time Spent: >60 minutes
[2020-04-09] MEDS ORDERED: LORAZEPAM 0.5 MG TABLET PO PRN (19:49)
--- NOTE | 2020-04-09 19:53 | PDOC PROGRESS REPORT ---
Subjective Date:: 04/09/20 Subjective:: NAEO. This morning, his abdomen was quite distended with ascites. After HD, abdominal distention has improved somewhat. Reason For Visit: URINARY RETENTION, ACUTE URINARY RETENTION, BACTE- Physical Exam Vital Signs: Temp Pulse Resp BP Pulse Ox 98.8 F 75 16 126/43 H 96 04/09/20 03:08 04/09/20 14:00 04/09/20 03:08 04/09/20 03:08 04/09/20 03:08 Intake & Output 04/08/20 04/09/20 04/10/20 06:59 06:59 06:59 Intake Total 50 5701 1070 Output Total 30 100 6040 Balance 20 5601 -4970 Weight 80.3 kg 88.8 kg General appearance: PRESENT: no acute distress, cooperative Mouth exam: PRESENT: moist Throat exam: ABSENT: post pharyngeal erythema Neck exam: ABSENT: JVD Respiratory exam: PRESENT: clear to auscultation yair Cardiovascular exam: PRESENT: RRR GI/Abdominal exam: PRESENT: ascites, distended, normal bowel sounds, soft, tenderness. ABSENT: firm, guarding, rebound Gentrourinary exam: PRESENT: indwelling catheter Extremities exam: ABSENT: pedal edema Neurological exam: PRESENT: alert, awake, oriented to person, oriented to place, oriented to time, oriented to situation Psychiatric exam: PRESENT: flat affect Skin exam: ABSENT: rash Results Laboratory Results: 04/08/20 11:19 04/09/20 06:13 04/09/20 06:13 Sodium 140.1 Potassium 4.7 Chloride 104 Carbon Dioxide 21 L Anion Gap 15 BUN 63 H Creatinine 8.00 H Est GFR ( Amer) 8 L Glucose 76 Calcium 8.1 L Phosphorus 6.8 H Magnesium 1.8 Albumin 2.8 L 04/07/20 16:30 Blood Blood Culture (PCR) - Final Staphylococcus Species 04/07/20 15:04 Ascities Fluid Gram Stain - Final 04/07/20 15:04 Ascities Fluid Body Fluid Culture - Final Staphylococcus Aureus No Anaerobic Organisms 04/07/20 13:15 Moraes Catheter Urine Culture - Final NO GROWTH 2 DAYS Impressions: Abdomen/Pelvis CT 04/07/20 13:35 IMPRESSION: 1. Moraes catheter within the urinary bladder which demonstrates persistent diffuse wall thickening and adjacent fat stranding, similar to prior exam. No definite fistulous connection is identified with the adjacent s tructures on noncontrast CT. 2. Moderate volume ascites. Diffuse subcutaneous edema. 3. Small right pleural effusion and chronic right pleural thickening. Adjacent opacities may simply reflect atelectasis. Component of infection or aspiration is not excluded. 4. Colon diverticulosis. 5. Stable renal cysts and bilateral indeterminate renal lesions. Assessment and Plan - Diagnosis (1) Sepsis associated hypotension Is this a current diagnosis for this admission?: Yes (2) Acute on chronic respiratory failure with hypoxemia Is this a current diagnosis for this admission?: Yes (3) Abdominal pain Qualifiers: Abdominal location: right upper quadrant Qualified Code(s): R10.11 - Right upper quadrant pain Is this a current diagnosis for this admission?: Yes (4) Acute urinary retention Is this a current diagnosis for this admission?: Yes (5) Bacteremia Is this a current diagnosis for this admission?: Yes (6) Bacterial peritonitis Is this a current diagnosis for this admission?: Yes (7) Open wound, abdominal wall, lateral Is this a current diagnosis for this admission?: Yes (8) Urinary retention Is this a current diagnosis for this admission?: Yes (9) Dehydration Is this a current diagnosis for this admission?: Yes (10) End stage renal disease on dialysis Is this a current diagnosis for this admission?: Yes (11) Generalized weakness Is this a current diagnosis for this admission?: Yes (12) Gram-positive bacteremia Is this a current diagnosis for this admission?: Yes (13) Hyperglycemia due to type 2 diabetes mellitus Qualifiers: Diabetes mellitus [facility] insulin use: with director long term care use Qualified Code(s): E11.65 - Type 2 diabetes mellitus with hyperglycemia; 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 He noted a change in the ascitic fluid, stating that it had become more cloudy and eventually looked like codie pus. He was getting less and less drainage through the drain. He developed increasing abdominal pain and a bloated abdomen and thus presented to the [facility]. Incidentally, he has a chronic Moraes catheter in place at baseline, but removed it approximately 1 week prior to admission (unclear why). In the ED, a new Moraes catheter was placed for obstructive uropathy. His abdominal drain was removed by surgery, Dr. Hong, and the fluid was noted to be extremely purulent. BCx were obtained and he was started on broad spectrum IV antibiotics. Sepsis MSSA Bacteremia Bacterial peritonitis - BCx and fluid culture obtained in the ED are both growing MSSA - Bacterial peritonitis 2/2 to indwelling peritoneal catheter - ID consulted and recommended to switch antibiotics to cefazolin 1 g Q24H (plan to switch to oral antibiotics on discharge to complete 4 weeks of therapy) - surgery consulted * peritoneal catheter removed 04/08 * he underwent a bedside abdominal incision and debridement on 04/09 Sepsis -associated Hypotension: resolved with IVF and IV antibiotics. Acute on Chronic Abdominal Pain: due to peritonitis and ascites. Controlled on current regimen. BPH c/b chronic bladder outlet obstruction: Moraes catheter placed on 04/07. Chronic Diastolic CHF: continue to hold home diuretics in the s/o poor oral in take Acute on Chronic Hypoxic Respiratory Failure: resolved. He is back on his home 2 L O2 via [place]. ESRD: nephrology consulted, HD MWF Hyperglycemia due to DM2: glucose well controlled on below regimen - SSI - Lantus 20 units daily Depression: continue home Cymbalta Dispo: plan to discharge home with hospice on oral antibiotics and with Moraes catheter in place on Sunday. Code Status: DNR/DNI/comfort measures - Time Time Spent with patient: 35 or more minutes Anticipated Discharge Disposition: Home with Hospice Anticipated Discharge Timeframe: within 72 hours
[2020-04-09] MEDS: FAMOTIDINE 20 MG TABLET PO SCH (22:03)
[2020-04-09] MEDS: MORPHINE SULFATE IR 15 MG TABLET PO PRN (22:04)
[2020-04-09] MEDS: ASPIRIN 81 MG TABLET, ENT COATED PO SCH (22:04)
[2020-04-09] MEDS: ATORVASTATIN CALCIUM 80 MG TABLET PO SCH (22:04)
[2020-04-09] MEDS: CEFAZOLIN 1 GM/D5W RTU 1 GM/50 ML RTUPB IV SCH (22:05)
[2020-04-09] MEDS: INSULIN GLARGINE,HUM.REC.ANLOG 1,000 UNIT/10 ML VIAL SUBCUT SCH (22:06)
--- NOTE | 2020-04-10 00:58 | PDOC PROGRESS REPORT ---
Subjective Date:: 04/09/20 Subjective:: Chart reviewed. Patient was admitted with infected peritoneal catheter placed due to persistent reaccumulating ascites due to CHF. Patient was diagnosed with bacterial peritonitis with positive peritoneal fluid culture and blood culture for MSSA. Peritoneal catheter was removed. He also has UTI and his chronic indwelling Moraes catheter replaced. I am seeing the patient this afternoon during dialysis treatment. Patient states that he feels much better today but he still feels short of breath. He otherwise denies any chest pains pain, nausea nor vomiting. He is currently tolerating dialysis with adequate blood pressure. Reason For Visit: URINARY RETENTION, ACUTE URINARY RETENTION, BACTE- Physical Exam Vital Signs: Temp Pulse Resp BP Pulse Ox 98.8 F 68 16 126/43 H 96 04/09/20 03:08 04/09/20 07:00 04/09/20 03:08 04/09/20 03:08 04/09/20 03:08 Intake & Output 04/08/20 04/09/20 04/10/20 06:59 06:59 06:59 Intake Total 50 5701 Output Total 30 100 Balance 20 5601 Weight 80.3 kg 88.8 kg Vitals during dialysis: Blood pressure 158/64, heart rate of 73, blood flow rate of 450 mL/min and dialysate flow rate of 800 mL/min. Exam: General appearance: PRESENT: no acute distress, cooperative, well-developed, well-nourished Head exam: PRESENT: atraumatic, normocephalic Eye exam: PRESENT: conjunctiva pale, PERRLA. ABSENT: scleral icterus Neck exam: ABSENT: JVD Respiratory exam: PRESENT: Diminished breath sounds. ABSENT: crackles, rales, rhonchi, unlabored, wheezes Cardiovascular exam: PRESENT: Regular rate rhythm -+S1, +S2. ABSENT: diastolic murmur, systolic murmur GI/Abdominal exam: PRESENT: normal bowel sounds, soft. Less tenderness over the previous peritoneal catheter site right flank ABSENT: guarding, mass Extremities exam: Trace ankle edema Neurological exam: PRESENT: alert, awake, oriented to person, place and time. Skin exam: PRESENT: dry, warm, Cardiovascular exam: PRESENT: RRR, +S1, +S2. ABSENT: rubs GI/Abdominal exam: PRESENT: normal bowel sounds, soft, tenderness. ABSENT: organomegaly, rebound Results Laboratory Results: 04/08/20 11:19 04/09/20 06:13 04/09/20 06:13 Sodium 140.1 Potassium 4.7 Chloride 104 Carbon Dioxide 21 L Anion Gap 15 BUN 63 H Creatinine 8.00 H Est GFR ( Amer) 8 L Glucose 76 Calcium 8.1 L Phosphorus 6.8 H Magnesium 1.8 Albumin 2.8 L 04/07/20 16:30 Blood Blood Culture (PCR) - Final Staphylococcus Species 04/07/20 15:04 Ascities Fluid Gram Stain - Final 04/07/20 15:04 Ascities Fluid Body Fluid Culture - Final Staphylococcus Aureus No Anaerobic Organisms 04/07/20 13:15 Moraes Catheter Urine Culture - Final NO GROWTH 2 DAYS Impressions: Abdomen/Pelvis CT 04/07/20 13:35 IMPRESSION: 1. Moraes catheter within the urinary bladder which demonstrates persistent diffuse wall thickening and adjacent fat stranding, similar to prior exam. No definite fistulous connection is identified with the adjacent structures on noncontrast CT. 2. Moderate volume ascites. Diffuse subcutaneous edema. 3. Small right pleural effusion and chronic right pleural thickening. Adjacent opacities may simply reflect atelectasis. Component of infection or aspiration is not excluded. 4. Colon diverticulosis. 5. Stable renal cysts and bilateral indeterminate renal lesions. Assessment & Plan - Diagnosis (1) End stage renal disease on dialysis Is this a current diagnosis for this admission?: Yes Plan: We will do dialysis today for 3 hours, using the patient's AV fistula, with 2 potassium bath, blood flow rate of 450 mL per minute, dialysate flow rate of 800 mL per minute, ultrafiltration 3 to 4 L as tolerated, no heparin and Procrit with 20,000 units during dialysis intravenously. Patient will be monitored and ultrafiltration to be adjusted accordingly depending on blood pressure. Discussed dialysis prescription with our dialysis nurse. (2) Bacteremia Is this a current diagnosis for this admission?: Yes Plan: Positive MSSA on blood cultures. Currently on IV cefazolin. (3) Bacterial peritonitis Is this a current diagnosis for this admission?: Yes Plan: Peritoneal fluid culture positive for MSSA. Status post removal of peritoneal catheter due to infection. On IV cefazolin. (4) Urinary retention Is this a current diagnosis for this admission?: Yes Plan: With chronic indwelling Moraes catheter secondary to bladder outlet obstruction due to BPH. Moraes catheter replaced. (5) Anemia in chronic kidney disease Qualifiers: Chronic kidney disease stage: on chronic dialysis Qualified Code(s): N18.6 - End stage renal disease; D63.1 - Anemia in chronic kidney disease; Z99.2 - Dependence on renal dialysis Is this a current diagnosis for this admission?: Yes Plan: Retacrit during dialysis treatment as needed. (6) Chronic kidney disease-mineral and bone disorder Is this a current diagnosis for this admission?: Yes Plan: Phosphorus is 6.8. (7) UTI (urinary tract infection) Qualifiers: Urinary tract infection type: site unspecified Hematuria presence: without hematuria Qualified Code(s): N39.0 - Urinary tract infection, site not specified Is this a current diagnosis for this admission?: Yes (8) CHF (congestive heart failure) Qualifiers: Heart failure type: unspecified Heart failure chronicity: chronic Qualified Code(s): I50.9 - Heart failure, unspecified Is this a current diagnosis for this admission?: Yes Plan: By history associated with recurrent ascites leading to placement of peritoneal catheter which unfortunately got infected. Currently compensated. (9) Diabetes mellitus type 2 in obese Is this a current diagnosis for this admission?: Yes (10) HTN (hypertension) Qualifiers: Hypertension type: essential hypertension Qualified Code(s): I10 - Essential (primary) hypertension Is this a current diagnosis for this admission?: Yes - Time Time with patient: 15-25 minutes
[2020-04-10] MEDS: HEPARIN SOD (PORCINE) 5,000 UNIT/ML 1 ML VIAL SUBCUT SCH ×3 (05:15→21:42)
[2020-04-10] MEDS: MORPHINE SULFATE IR 15 MG TABLET PO PRN ×2 (05:15→17:37)
[2020-04-10] MEDS: INSULIN REG, HUMAN 100 UNIT/ML 3 ML VIAL (PYX) SUBCUT SCH ×2 (09:15→13:57)
[2020-04-10] MEDS: DULOXETINE HCL 30 MG CAPSULE.DR PO SCH (09:21)
--- NOTE | 2020-04-10 09:35 | PDOC PROGRESS REPORT ---
Subjective Date:: 04/10/20 Reason For Visit: URINARY RETENTION, ACUTE URINARY RETENTION, BACTE- Patient reports bloating. States less abdominal pain right flank. Only patient considering discontinuing advanced care and moving towards hospice. Physical Exam Vital Signs: Temp Pulse Resp BP Pulse Ox 97.9 F 62 16 114/36 L 95 04/09/20 22:00 04/10/20 02:00 04/09/20 19:46 04/09/20 19:46 04/09/20 19:46 Intake & Output 04/09/20 04/10/20 04/11/20 06:59 06:59 06:59 Intake Total 5701 1470 Output Total 100 6070 Balance 5601 -4600 Weight 88.8 kg 86.7 kg General appearance: PRESENT: no acute distress GI/Abdominal exam: PRESENT: other - Right flank exposed. Loop drain in position through 2 open wounds, which are cleaning up nicely, wound irrigated, peroxide tip cleaned and repacked with gauze. No indication for additional debridement Results Laboratory Results: 04/08/20 11:19 04/09/20 06:13 04/07/20 16:30 Blood Blood Culture (PCR) - Final Staphylococcus Species 04/07/20 15:04 Ascities Fluid Gram Stain - Final 04/07/20 15:04 Ascities Fluid Body Fluid Culture - Final Staphylococcus Aureus No Anaerobic Organisms 04/07/20 13:15 Moraes Catheter Urine Culture - Final NO GROWTH 2 DAYS Impressions: Abdomen/Pelvis CT 04/07/20 13:35 IMPRESSION: 1. Moraes catheter within the urinary bladder which demonstrates persistent diffuse wall thickening and adjacent fat stranding, similar to prior exam. No definite fistulous connection is identified with the adjacent stru ctures on noncontrast CT. 2. Moderate volume ascites. Diffuse subcutaneous edema. 3. Small right pleural effusion and chronic right pleural thickening. Adjacent opacities may simply reflect atelectasis. Component of infection or aspiration is not excluded. 4. Colon diverticulosis. 5. Stable renal cysts and bilateral indeterminate renal lesions. Assessment & Plan - Diagnosis (1) Open wound, abdominal wall, lateral Is this a current diagnosis for this admission?: Yes Plan: Impression: Clinically improved right flank wound status post debridement, drain placement Plan: 1. Continue local wound care 2. May discontinue drain tomorrow - Time Anticipated Discharge Disposition: tbd Anticipated Discharge Timeframe: tbd
--- NOTE | 2020-04-10 15:18 | PDOC PROGRESS REPORT ---
Subjective Date:: 04/10/20 Subjective:: As per attending physician's note CELIO WAGNER is a 69 year old male with PMH of HTN, HLD, DM2, end-stage CHF c/b chronic ascites s/p peritoneal drain, CAD s/p PCI, ESRD on HD, prostatic hypertrophy c/b bladder outlet obstruction who presented on 04/07/2020 with pain at the site of his peritoneal drain for several days. He noted a change in the ascitic fluid, stating that it had become more cloudy and eventually looked like codie pus. He was getting less and less drainage through the drain. He developed increasing abdominal pain and a bloated abdomen and thus presented to the hospital. Incidentally, he has a chronic Moraes catheter in place at baseline, but removed it approximately 1 week prior to admission (unclear why). In the ED, a new Moraes catheter was placed for obstructive uropathy. His abdominal drain was removed by surgery, Dr. Hong, and the fluid was noted to be extremely purulent. BCx were obtained and he was started on broad spectrum IV antibiotics. 04/10/2020. No acute events of note, patient still complaining of abdominal distention and right lower quadrant pain however improved since yesterday, patient has been receiving wound care by surgery, recommendation is to remove drain tomorrow. Patient denies any fever, chills, nausea, vomiting. Patient and having questions about CODE STATUS changes, all concerns addressed. They would like to continue current treatment, receive hemodialysis on Sunday, meet with hospice and then make a decision regarding hospice care. Reason For Visit: URINARY RETENTION, ACUTE URINARY RETENTION, BACTE- Physical Exam Vital Signs: Temp Pulse Resp BP Pulse Ox 98.0 F 56 L 20 102/47 L 100 04/10/20 11:22 04/10/20 11:22 04/10/20 11:22 04/10/20 11:22 04/10/20 11:22 Intake & Output 04/09/20 04/10/20 04/11/20 06:59 06:59 06:59 Intake Total 5701 1470 118 Output Total 100 6070 0 Balance 5601 -4600 118 Weight 88.8 kg 86.7 kg General appearance: PRESENT: no acute distress, well-developed, well-nourished Head exam: PRESENT: atraumatic, normocephalic Neck exam: ABSENT: carotid bruit, JVD, lymphadenopathy, thyromegaly Respiratory exam: PRESENT: clear to auscultation yair. ABSENT: rales, rhonchi, wheezes GI/Abdominal exam: PRESENT: ascites, distended, normal bowel sounds, soft, other - Dressing in place on the right lower quadrant.. ABSENT: guarding, mass, organolmegaly, rebound, tenderness Neurological exam: PRESENT: alert, awake, oriented to person, oriented to place, oriented to time, oriented to situation, CN II-XII grossly intact. ABSENT: motor sensory deficit Results Laboratory Results: 04/08/20 11:19 04/09/20 06:13 04/07/20 16:30 Blood Blood Culture (PCR) - Final Staphylococcus Species 04/07/20 16:30 Blood Blood Culture - Final Staphylococcus Aureus Staphylococcus Epidermidis 04/08/20 12:30 Abdomen - Abscess Gram Stain - Final 04/08/20 12:30 Abdomen - Abscess Wound Culture - Final Staphylococcus Aureus No Anaerobic Organisms Impressions: Abdomen/Pelvis CT 04/07/20 13:35 IMPRESSION: 1. Moraes catheter within the urinary bladder which demonstrates persistent diffuse wall thickening and adjacent fat stranding, similar to prior exam. No definite fistulous connection is identified with the adjacent structures on noncontrast CT. 2. Moderate volume ascites. Diffuse subcutaneous edema. 3. Small right pleural effusion and chronic right pleural thickening. Adjacent opacities may simply reflect atelectasis. Component of infection or aspiration is not excluded. 4. Colon diverticulosis. 5. Stable renal cysts and bilateral indeterminate renal lesions. Assessment and Plan - Diagnosis (1) MSSA bacteremia Is this a current diagnosis for this admission?: Yes Plan: BCx and fluid culture obtained in the ED are both growing MSSA Bacterial peritonitis 2/2 to indwelling peritoneal catheter Culture from ascitic fluid and blood were growing MSSA. 1 set of blood cultures from 04/24/2020 both growing MSSA. Wound culture 04/08/2020 growing MSSA. Repeat blood culture from 04/08/2020 - x48 hours. ID consulted and recommended to switch antibiotics to cefazolin 1 g Q24H (plan to switch to 2g/2g/3g post hemodialysis to complete 4 weeks of therapy, EOT 05/06/2020.) Surgery consulted Status post peritoneal catheter removed 04/08 and bedside abdominal incision and debridement on 04/09 and 04/10/2020. Continue cefazolin 1 mg every 24 hours. (2) Bacterial peritonitis Is this a current diagnosis for this admission?: Yes Plan: As per #1. (3) Sepsis associated hypotension Is this a current diagnosis for this admission?: Yes Plan: Most likely due to MSSA bacteremia and bacterial peritonitis. Resolved. Normotensive. WBC WNL. Continue IV antibiotics. (4) ESRD (end stage renal disease) Is this a current diagnosis for this admission?: Yes Plan: On hemodialysis. Sunday. Has left upper extremity fistula. Renal diet, monitor electrolytes and volume status. 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 Hemoglobin A1c 8.5% 11/12/2019. Decrease Lantus to 10 units nightly, continue sliding scale. Diabetic diet, Accu-Chek, hypoglycemia protocol. Adjust insulin dosage as needed. (6) Open wound, abdominal wall, lateral Is this a current diagnosis for this admission?: Yes Plan: Status post I&D by surgery. Continue wound care. (7) Urinary retention Is this a current diagnosis for this admission?: Yes Plan: Likely due to BPH. Patient has chronic Moraes catheter. Patient advised to follow-up with urology. Continue Moraes care. Finasteride. Start on Flomax. - Time Time Spent with patient: 35 or more minutes Anticipated Discharge Disposition: Home with Hospice Anticipated Discharge Timeframe: within 72 hours
[2020-04-10] MEDS: INSULIN LISPRO 100 UNIT/ML 3 ML VIAL SUBCUT SCH ×2 (16:07→21:41)
[2020-04-10] MEDS: TAMSULOSIN HCL 0.4 MG CAP.SR.24H PO SCH (17:21)
[2020-04-10] MEDS: FINASTERIDE 5 MG TABLET PO SCH (17:21)
[2020-04-10] MEDS: CEFAZOLIN 1 GM/D5W RTU 1 GM/50 ML RTUPB IV SCH (22:10)
[2020-04-10] MEDS: ASPIRIN 81 MG TABLET, ENT COATED PO SCH (22:10)
[2020-04-10] MEDS: ATORVASTATIN CALCIUM 80 MG TABLET PO SCH (22:11)
[2020-04-10] MEDS: FAMOTIDINE 20 MG TABLET PO SCH (22:11)
[2020-04-10] MEDS: INSULIN GLARGINE,HUM.REC.ANLOG 1,000 UNIT/10 ML VIAL SUBCUT SCH ×2 (22:11→22:23)
[2020-04-11] MEDS: HEPARIN SOD (PORCINE) 5,000 UNIT/ML 1 ML VIAL SUBCUT SCH ×3 (05:05→22:22)
[2020-04-11] MEDS: MORPHINE SULFATE IR 15 MG TABLET PO PRN (05:13)
[2020-04-11 05:55] LABS: ANION GAP 13 (5-19); BLOOD UREA NITROGEN 50 mg/dL (7-20); CALCIUM 8.5 mg/dL (8.4-10.2); CARBON DIOXIDE 24 mmol/L (22-30); CHLORIDE 100 mmol/L (98-107); POTASSIUM 4.8 mmol/L (3.6-5.0)
[2020-04-11 06:23] LABS: GLUCOSE 53 mg/dL (75-110)
[2020-04-11 07:37] LABS: HEPATITS B SURFACE ANTIGEN Negative (Negative)
[2020-04-11] MEDS: INSULIN LISPRO 100 UNIT/ML 3 ML VIAL SUBCUT SCH ×4 (10:03→22:25)
[2020-04-11] MEDS: DULOXETINE HCL 30 MG CAPSULE.DR PO SCH (10:04)
[2020-04-11] MEDS: FINASTERIDE 5 MG TABLET PO SCH (10:04)
[2020-04-11 13:00] LABS: HEPATITIS B CORE AB TOT Negative (Negative)
[2020-04-11] MEDS ORDERED: EPOETIN ALFA-EPBX 20,000 UNIT in SYRINGE, DISPOSABLE, 1 EACH IV PRN (16:58)
--- NOTE | 2020-04-11 17:15 | PDOC PROGRESS REPORT ---
Subjective Date:: 04/11/20 Subjective:: As per attending physician's note CELIO WAGNER is a 69 year old male with PMH of HTN, HLD, DM2, end-stage CHF c/b chronic ascites s/p peritoneal drain, CAD s/p PCI, ESRD on HD, prostatic hypertrophy c/b bladder outlet obstruction who presented on 04/07/2020 with pain at the site of his peritoneal drain for several days. He noted a change in the ascitic fluid, stating that it had become more cloudy and eventually looked like codie pus. He was getting less and less drainage through the drain. He developed increasing abdominal pain and a bloated abdomen and thus presented to the hospital. Incidentally, he has a chronic Moraes catheter in place at baseline, but removed it approximately 1 week prior to admission (unclear why). In the ED, a new Moraes catheter was placed for obstructive uropathy. His abdominal drain was removed by surgery, Dr. Hong, and the fluid was noted to be extremely purulent. BCx were obtained and he was started on broad spectrum IV antibiotics. 04/10/2020. No acute events of note, patient still complaining of abdominal distention and right lower quadrant pain however improved since yesterday, patient has been receiving wound care by surgery, recommendation is to remove drain tomorrow. Patient denies any fever, chills, nausea, vomiting. Patient and having questions about CODE STATUS changes, all concerns addressed. They would like to continue current treatment, receive hemodialysis on Sunday, meet with hospice and then make a decision regarding hospice care. 04/11/2020. No acute events overnight. Patient is stating that he is feeling like he is developing abdominal distention otherwise feeling okay, denies any shortness of breath, chest pain, nausea, vomiting. Endorsing low appetite. Patient has been noted to have low blood glucose level on Accu-Chek. Reason For Visit: URINARY RETENTION, ACUTE URINARY RETENTION, BACTE- Physical Exam Vital Signs: Temp Pulse Resp BP Pulse Ox 97.6 F 68 20 103/74 95 04/11/20 11:20 04/11/20 14:00 04/11/20 11:20 04/11/20 11:20 04/11/20 11:20 Intake & Output 01/16/21 01/17/21 01/18/21 06:59 06:59 06:59 Intake Total 1470 716 Output Total 6070 0 Balance -4600 716 Weight 86.7 kg General appearance: PRESENT: no acute distress, obese, well-developed, well- nourished Head exam: PRESENT: atraumatic, normocephalic Neck exam: ABSENT: carotid bruit, JVD, lymphadenopathy, thyromegaly Respiratory exam: PRESENT: clear to auscultation yair. ABSENT: rales, rhonchi, wheezes Cardiovascular exam: PRESENT: RRR. ABSENT: diastolic murmur, rubs, systolic murmur GI/Abdominal exam: PRESENT: ascites, distended, normal bowel sounds, tenderness - Right lower quadrant.. ABSENT: guarding, mass, organolmegaly, rebound Neurological exam: PRESENT: alert, awake, oriented to person, oriented to place, oriented to time, oriented to situation, CN II-XII grossly intact. ABSENT: motor sensory deficit Results Laboratory Results: 04/08/20 11:19 04/11/20 05:13 04/11/20 05:13 Sodium 137.3 Potassium 4.8 Chloride 100 Carbon Dioxide 24 Anion Gap 13 BUN 50 H Creatinine 7.00 H Est GFR ( Amer) 9 L Glucose 53 L Calcium 8.5 Magnesium 1.9 Impressions: Abdomen/Pelvis CT 04/07/20 13:35 IMPRESSION: 1. Moraes catheter within the urinary bladder which demonstrates persistent diffuse wall thickening and adjacent fat stranding, similar to prior exam. No definite fistulous connection is identified with the adjacent structures on noncontrast CT. 2. Moderate volume ascites. Diffuse subcutaneous edema. 3. Small right pleural effusion and chronic right pleural thickening. Adjacent opacities may simply reflect atelectasis. Component of infection or aspiration is not excluded. 4. Colon diverticulosis. 5. Stable renal cysts and bilateral indeterminate renal lesions. Assessment and Plan - Diagnosis (1) ACP (advance care planning) Is this a current diagnosis for this admission?: Yes (2) MSSA bacteremia Is this a current diagnosis for this admission?: Yes Plan: BCx and fluid culture obtained in the ED are both growing MSSA Bacterial peritonitis 2/2 to indwelling peritoneal catheter Culture from ascitic fluid and blood were growing MSSA. 1 set of blood cultures from 04/24/2020 both growing MSSA. Wound culture 04/08/2020 growing MSSA. Repeat blood culture from 04/08/2020 - x48 hours. ID consulted and recommended to switch antibiotics to cefazolin 1 g Q24H (plan to switch to 2g/2g/3g post hemodialysis to complete 4 weeks of therapy, EOT 05/06/2020.) Surgery consulted Status post peritoneal catheter removed 04/08 and bedside abdominal incision and debridement on 04/09 and 04/10/2020. Continue cefazolin 1 mg every 24 hours. (3) Bacterial peritonitis Is this a current diagnosis for this admission?: Yes Plan: As per #1. (4) Sepsis associated hypotension Is this a current diagnosis for this admission?: Yes Plan: Most likely due to MSSA bacteremia and bacterial peritonitis. Resolved. Normotensive. WBC WNL. Continue IV antibiotics. (5) ESRD (end stage renal disease) Is this a current diagnosis for this admission?: Yes Plan: On hemodialysis. Sunday. Has left upper extremity fistula. Renal diet, monitor electrolytes and volume status. 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 Patient endorsing low appetite. Hemoglobin A1c 8.5% 11/12/2019. Hold Lantus due to patient's hypoglycemia. Encourage frequent snacking. Continue sliding scale. Accu-Chek, hypoglycemia protocol. (7) Open wound, abdominal wall, lateral Is this a current diagnosis for this admission?: Yes Plan: Status post I&D by surgery. Continue wound care. (8) Urinary retention Is this a current diagnosis for this admission?: Yes Plan: Likely due to BPH. Patient has chronic Moraes catheter. Patient advised to follow-up with urology. Continue Moraes care. Finasteride. Start on Flomax. - Time Time Spent with patient: 35 or more minutes Anticipated Discharge Disposition: Home with Hospice Anticipated Discharge Timeframe: within 48 hours
[2020-04-11] MEDS: TAMSULOSIN HCL 0.4 MG CAP.SR.24H PO SCH (17:30)
--- NOTE | 2020-04-11 18:37 | PDOC CONSULTATION ---
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 History of Present Illness Admission Date/PCP: 04/07/20 17:41 [facility] History of Present Illness: CELIO WAGNER is a 69 year old male with his Family at bedside. Although I have met him in the past, he was lost to follow-up. He has a longstanding histo ry of COPD, CHF, recurrent ascites, and chronic renal failure. During this admission, medical team has recommended that patient either continue aggressive treatments with Hemodialysis and frequent trips back and forth to the hospital, or consider Hospice care and focus on a comfort approach. Although family states that they have discussed this and believes Hospice would be the best choice, patient still seems to indicate that he has not fully decided. Today, he states that he has been eating fairly well, he denies any pain. He just feels his abdomen bloated and believes he would feel better after another paracentesis. He is currently on antibiotics for peritonitis due to an infected pleurex-type drain. No further intervention for the ascites has been recommended due to the infection. Past Medical History Cardiac Medical History: Reports: Congestive Heart Failure, Coronary Artery Disease, Myocardial Infarction - X2 WITH STENTS 2004, 2009, Hyperlipidema, Hypertension Denies: Atrial Fibrillation, DVT, Pulmonary Embolism Pulmonary Medical History: Reports: Chronic Obstructive Pulmonary Disease (COPD), Pneumonia, Respiratory Failure Denies: Asthma, Bronchitis Neurological Medical History: Denies: Seizures Endocrine Medical History: Reports: Diabetes Mellitus Type 2 Denies: Diabetes Mellitus Type 1, Hyperthyroidism, Hypothyroidism Renal/ Medical History: Reports: End Stage Renal Disease GI Medical History: Reports: Diverticulitis Denies: Cirrhosis, Hepatitis Musculoskeltal Medical History: Denies: Arthritis, Gout Skin Medical History: Denies: Eczema, Psoriasis Psychiatric Medical History: Reports: Depression Hematology: Reports: Anemia Denies: Bleeding Tendencies Infectious Medical History: Reports: Clostridium Difficile Past Surgical History Past Surgical History: Reports: Cardiac Catheterization, Coronary Stent - X2 '05 , , Other - Small bowel resection; adhesion lysis; peritoneal dialysis access Social History Lives with: Family Smoking Status: Unknown if Ever Smoked Electronic Cigarette use?: No Frequency of Alcohol Use: None Hx Recreational Drug Use: No Drugs: None Hx Prescription Drug Abuse: No - Advance Directive Resuscitation Status: Comfort Measures Only Family History Family History: CAD, DM, Hypertension Parental Family History Reviewed: Yes Children Family History Reviewed: No Sibling(s) Family History Reviewed.: Yes Medication/Allergy Home Medications: Aspirin [Aspirin 81 mg Chewable Tablet] 81 mg PO DAILY 10/09/18 Atorvastatin Calcium [Lipitor 80 mg Tablet] 80 mg PO QHS 10/09/18 Isosorbide Mononitrate [Imdur 30 mg Tablet.er] 30 mg PO DAILY 10/09/18 Carvedilol [Coreg 12.5 mg Tablet] 12.5 mg PO Q12 11/12/19 Famotidine [Pepcid 20 mg Tablet] 20 mg PO QHS 11/12/19 Finasteride [Proscar 5 mg Tablet] 5 mg PO DAILY 11/12/19 Albuterol Sulfate [Ventolin 0.083% Neb 2.5 mg/3 ml Ampul] 1 vial NEB QID Escitalopram Oxalate [Lexapro 10 mg Tablet] 20 mg PO DAILY 04/08/20 Insulin Glargine,Hum.rec.anlog [Lantus (Pyxis) Insulin 100 Unit/1 ml 10 ml] 80 unit SUBCUT DAILY 04/08/20 Allergies/Adverse Reactions: codeine Adverse Reaction (Intermediate, Verified 03/31/20 00:22) HAY Allergy (Uncoded 02/12/20 04:12) HAY FEVER Allergy (Uncoded 02/12/20 04:12) Review of Systems Constitutional: ABSENT: fever(s), headache(s) Eyes: ABSENT: visual disturbances Ears: ABSENT: hearing changes Nose, Mouth, and Throat: ABSENT: sore throat Cardiovascular: ABSENT: chest pain Respiratory: ABSENT: cough Gastrointestinal: PRESENT: bloating. ABSENT: nausea Genitourinary: ABSENT: dysuria Integumentary: ABSENT: pruritus Neurological: PRESENT: confusion, weakness Hematologic/Lymphatic: ABSENT: easy bruising Physical Exam Vital Signs: Temp Pulse Resp BP Pulse Ox 97.6 F 68 20 103/74 95 04/11/20 11:20 04/11/20 14:00 04/11/20 11:20 04/11/20 11:20 04/11/20 11:20 Intake & Output 04/10/20 04/11/20 04/12/20 06:59 06:59 06:59 Intake Total 1470 716 Output Total 6070 0 Balance -4600 716 Weight 86.7 kg General appearance: PRESENT: no acute distress, well-developed, well-nourished Head exam: PRESENT: normocephalic Eye exam: PRESENT: EOMI Mouth exam: PRESENT: tongue midline Neck exam: ABSENT: tenderness Respiratory exam: PRESENT: clear to auscultation yair, unlabored Cardiovascular exam: PRESENT: RRR GI/Abdominal exam: PRESENT: distended, firm Extremities exam: PRESENT: +1 edema, other - Chronic ischemic changes Neurological exam: PRESENT: altered, awake Psychiatric exam: PRESENT: flat affect, other - Unable to answer all questions. But able to ask some appropriate questions. Skin exam: PRESENT: normal color Results Laboratory Results: 04/08/20 11:19 04/11/20 05:13 04/11/20 05:13 Sodium 137.3 Potassium 4.8 Chloride 100 Carbon Dioxide 24 Anion Gap 13 BUN 50 H Creatinine 7.00 H Est GFR ( Amer) 9 L Glucose 53 L Calcium 8.5 Magnesium 1.9 Impressions: Abdomen/Pelvis CT 04/07/20 13:35 IMPRESSION: 1. Moraes catheter within the urinary bladder which demonstrates persistent diffuse wall thickening and adjacent fat stranding, similar to prior exam. No definite fistulous connection is identified with the adjacent structures on noncontrast CT. 2. Moderate volume ascites. Diffuse subcutaneous edema. 3. Small right pleural effusion and chronic right pleural thickening. Adjacent opacities may simply reflect atelectasis. Component of infection or aspiration is not excluded. 4. Colon diverticulosis. 5. Stable renal cysts and bilateral indeterminate renal lesions. Assessment & Plan - Diagnosis (1) Ascites Qualifiers: Ascites type: other type Qualified Code(s): R18.8 - Other ascites Is this a current diagnosis for this admission?: Yes Plan: Not sure if this is a malignant ascites or not. If patient chooses aggressive route and further paracentesis is performed, would try to get cytology to rule out malignancy. However, even if cancer is found, I do not believe he would be a candidate for aggressive therapy. (2) Bacteremia Is this a current diagnosis for this admission?: Yes (3) Bacterial peritonitis Is this a current diagnosis for this admission?: Yes - Plan Summary Plan Summary: Patient and have been discussing Hospice care due to the multiple incurable conditions, including CHF, ESRD, COPD, etc. I believe Hospice is very appropriate. I have answered all questions and will return tomorrow morning and answer any further at that time as well. I do not believe patient will benefit in the long run with further diagnostic procedures. Patient and family are now requesting Hospice services. I will arrange SEDR[facility].
[2020-04-11] MEDS: CEFAZOLIN 1 GM/D5W RTU 1 GM/50 ML RTUPB IV SCH (22:20)
[2020-04-11] MEDS: ATORVASTATIN CALCIUM 80 MG TABLET PO SCH (22:21)
[2020-04-11] MEDS: FAMOTIDINE 20 MG TABLET PO SCH (22:21)
[2020-04-11] MEDS: ASPIRIN 81 MG TABLET, ENT COATED PO SCH (22:22)
[2020-04-12] MEDS ORDERED: NORMAL SALINE 1000 ML 1,000 ML IV PRN (05:00)
[2020-04-12] MEDS: HEPARIN SOD (PORCINE) 5,000 UNIT/ML 1 ML VIAL SUBCUT SCH ×2 (05:14→13:22)
[2020-04-12 06:59] LABS: ABSOLUTE BASOPHILS # (AUTO) 0.1 10^3/uL (0.0-0.2); ABSOLUTE EOSINOPHILS # (AUTO) 0.3 10^3/uL (0.0-0.6); ABSOLUTE MONOCYTES (AUTO) 1.3 10^3/uL (0.1-1.4); ABSOLUTE NEUT (AUTO) 8.4 10^3/uL (1.7-8.2); BASOPHILS % (AUTO) 0.9 % (0-2); EOSINOPHILS % (AUTO) 2.7 % (0-6); HEMATOCRIT 26.7 % (37.9-51.0); HEMOGLOBIN 8.7 g/dL (13.5-17.0); LYMPHOCYTES % (AUTO) 9.2 % (13-45); MEAN CORPUSCULAR HEMOGLOBIN 31.3 pg (27.0-33.4); MEAN CORPUSCULAR HGB CONC 32.7 g/dL (32.0-36.0); MEAN CORPUSCULAR VOLUME 96 fl (80-97); MONOCYTES % (AUTO) 11.4 % (3-13); PLATELET COUNT 297 10^3/uL (150-450); RED BLOOD COUNT 2.79 10^6/uL (4.35-5.55); RED CELL DISTRIBUTION WIDTH 13.8 % (11.5-14.0); SEGMENTED NEUTROPHILS % (AUTO) 75.8 % (42-78); TOTAL CELLS COUNTED % (AUTO) 100 %; WHITE BLOOD COUNT 11.1 10^3/uL (4.0-10.5)
[2020-04-12 07:05] LABS: ANION GAP 12 (5-19); BLOOD UREA NITROGEN 58 mg/dL (7-20); CALCIUM 8.6 mg/dL (8.4-10.2); CARBON DIOXIDE 27 mmol/L (22-30); CHLORIDE 98 mmol/L (98-107); GLUCOSE 120 mg/dL (75-110); POTASSIUM 5.8 mmol/L (3.6-5.0)
[2020-04-12] MEDS: INSULIN LISPRO 100 UNIT/ML 3 ML VIAL SUBCUT SCH ×2 (08:59→13:22)
[2020-04-12] MEDS: FINASTERIDE 5 MG TABLET PO SCH (10:21)
[2020-04-12] MEDS: MORPHINE SULFATE IR 15 MG TABLET PO PRN (10:21)
[2020-04-12] MEDS: DULOXETINE HCL 30 MG CAPSULE.DR PO SCH (10:21)
--- NOTE | 2020-04-12 14:42 | PDOC TRANSFER SUMMARY ---
General - Admit/Disc Date/PCP Admission Date/Primary Care Provider: 04/07/20 17:41 [facility] Discharge Date: 04/12/20 - Discharge Diagnosis (1) MSSA bacteremia Is this a current diagnosis for this admission?: Yes (2) Bacterial peritonitis Is this a current diagnosis for this admission?: Yes (3) Sepsis associated hypotension Is this a current diagnosis for this admission?: Yes (4) ESRD (end stage renal disease) Is this a current diagnosis for this admission?: Yes (5) Hyperglycemia due to type 2 diabetes mellitus Is this a current diagnosis for this admission?: Yes (6) Open wound, abdominal wall, lateral Is this a current diagnosis for this admission?: Yes (7) Urinary retention Is this a current diagnosis for this admission?: Yes (8) ACP (advance care planning) Is this a current diagnosis for this admission?: Yes - Additional Information Resuscitation Status: Comfort Measures Only Home Medications: Aspirin [Aspirin 81 mg Chewable Tablet] 81 mg PO DAILY 10/09/18 Atorvastatin Calcium [Lipitor 80 mg Tablet] 80 mg PO QHS 10/09/18 Isosorbide Mononitrate [Imdur 30 mg Tablet.er] 30 mg PO DAILY 10/09/18 Carvedilol [Coreg 12.5 mg Tablet] 12.5 mg PO Q12 11/12/19 Famotidine [Pepcid 20 mg Tablet] 20 mg PO QHS 11/12/19 Finasteride [Proscar 5 mg Tablet] 5 mg PO DAILY 11/12/19 Albuterol Sulfate [Ventolin 0.083% Neb 2.5 mg/3 ml Ampul] 1 vial NEB QID 04/08/20 Escitalopram Oxalate [Lexapro 10 mg Tablet] 20 mg PO DAILY 04/08/20 Insulin Glargine,Hum.rec.anlog [Lantus (Pyxis) Insulin 100 Unit/1 ml 10 ml] 80 unit SUBCUT DAILY 04/08/20 History of Present Illness Admission Date/PCP: 04/07/20 17:41 [facility] History of Present Illness: As per attending physician's note CELIO WAGNER is a 69 year old male with PMH of HTN, HLD, DM2, end-stage CHF c/b chronic ascites s/p peritoneal drain, CAD s/p PCI, ESRD on HD, prostatic hypertrophy c/b bladder outlet obstruction who presented on 04/07/2020 with pain at the site of his peritoneal drain for several days. He noted a change in the ascitic fluid, stating that it had become more cloudy and eventually looked like codie pus. He was getting less and less drainage through the drain. He developed increasing abdominal pain and a bloated abdomen and thus presented to the hospital. Incidentally, he has a chronic Moraes catheter in place at baseline, but removed it approximately 1 week prior to admission (unclear why). In the ED, a new Moraes catheter was placed for obstructive uropathy. His abdominal drain was removed by surgery, Dr. Hong, and the fluid was noted to be extremely purulent. BCx were obtained and he was started on broad spectrum IV antibiotics. Hospital Course Hospital Course: (1) ACP (advance care planning) As per previous attending's note "Mr. Wagner has ESRD on HD and end-stage CHF c/b chronic ascites requiring peritoneal catheter for drainage. He has had a recent prolonged (~1 month long) hospitalization where goals of care and home hospice were discussed with the patient/family. At that time, they decided to try a palliative approach (i.e. peritoneal catheter) to see how things would go, but they were not quite ready for comfort care. Unfortunately, he has now developed sepsis due to peritonitis and this catheter has been removed, and he has developed rapid re-accumulation of ascites. He notes that, even prior to this infection, he was miserable and in constant pain due to abdominal distention. His family notes that he has an exceedingly poor quality of life at baseline. We discussed that his options are very limited. We are unable to remove all the ascites with HD. In the past he required paracentesis every ~3 days due to severe CHF, until this peritoneal drain was placed. Now, the drain has been removed and he will require weeks of antibiotics to get rid of the infection completely before another peritoneal catheter could be safely replaced. In the meantime, paracentesis comes with the risk of re-introducing bacteria into the peritoneal cavity. Mr. Wagner tells me that he has felt for some time that he was nearing . His tells me that he has been telling her this for the last couple of weeks, as he has been so uncomfortable at home. They are now ready to pursue comfort care measures, and would like to pursue home health services. Mrs. Wagner has asked that HD be continued through Sunday in an effort to maximize Mr. Wagner's remaining time at home. I think this is reasonable. We will also continue IV antibiotics while he remains inpatient and then plan to switch to PO antibiotics on discharge. Plan for discharge on Sunday to home with hospice. Discussed with SW that he will need a hospital bed. He already has Home O2." Assumed care of this patient 04/10/2020, plan was for patient to receive his hemodialysis today and then be discharged to home hospice however patient and family have decided to not undergo any more hemodialysis or continue their IV antibiotics, and stated they would like to be transition to home hospice. On chart review I noted from previous admission that the patient had a complaint of flushing and diarrhea and concern was raised for possible carcinoid syndrome, oncology was consulted and commendation was to get urine 5-HIAA and chromogranin. Patient's 5-HIAA was negative however chromogranin was elevated, patient was told to follow-up with Dr. Baldwin as outpatient however he failed to follow-up. I consulted Dr. Baldwin to see if it was worth trying to see if his recurrent peritonitis could be explained by possible cancer earlier than CHF, but as per Dr. Baldwin's evaluation even if patient were to have a cancer he would not be a candidate for any type of intervention. As per Dr. Baldwin's note she also talked the patient and family and they decided to go ahead with home hospice. Please refer to Dr. Baldwin's note for further detail. (2) MSSA bacteremia BCx and fluid culture obtained in the ED are both growing MSSA Bacterial peritonitis / to indwelling peritoneal catheter Culture from ascitic fluid and blood were growing MSSA. 1 set of blood cultures from 04/24/2020 both growing MSSA. Wound culture 04/08/2020 growing MSSA. Repeat blood culture from 04/08/2020 - x48 hours. Surgery consulted Status post peritoneal catheter removed 04/08 and bedside abdominal incision and debridement on 04/09 and 04/10/2020. Continue cefazolin 1 mg every 24 hours. ID consulted and recommended to switch antibiotics to cefazolin 1 g Q24H (plan to switch to 2g/2g/3g post hemodialysis to complete 4 weeks of therapy, EOT 05/06/2020.) Patient currently being discharged to home hospice and he does not want to continue his antibiotics. (3) Bacterial peritonitis As per #1. (4) Sepsis associated hypotension Most likely due to MSSA bacteremia and bacterial peritonitis. Resolved. Normotensive. WBC WNL. Continue IV antibiotics. (5) ESRD (end stage renal disease) On hemodialysis. Sunday. Has left upper extremity fistula. Renal diet, monitor electrolytes and volume status. Refused to have hemodialysis on 04/12/2020. (6) Hyperglycemia due to type 2 diabetes mellitus Noted to be hypoglycemic even though his Lantus has been held. Patient endorsing low appetite. Hemoglobin A1c 8.5% 11/12/2019. Held Lantus due to patient's hypoglycemia. Encourage frequent snacking. Continue sliding scale. Accu-Chek, hypoglycemia protocol. (7) Open wound, abdominal wall, lateral Status post I&D by surgery. Continue wound care. (8) Urinary retention Likely due to BPH. Patient has chronic Moraes catheter. Patient advised to follow-up with urology. Continue Moraes care. Finasteride and Flomax. Physical Exam Vital Signs: Temp Pulse Resp BP Pulse Ox 98.1 F 64 16 126/58 H 93 04/12/20 08:59 04/12/20 14:00 04/12/20 03:34 04/12/20 03:34 04/12/20 03:34 Intake & Output 04/11/20 04/12/20 04/13/20 06:59 06:59 06:59 Intake Total 716 318 Output Total 0 45 Balance 716 273 Weight 86.7 kg General appearance: PRESENT: no acute distress, well-developed, well-nourished, other - Sitting in the bed does not appear to be in any apparent distress, appears very quiet and withdrawn, answers questions appropriately. Head exam: PRESENT: atraumatic, normocephalic Respiratory exam: PRESENT: clear to auscultation yair. ABSENT: rales, rhonchi, wheezes GI/Abdominal exam: PRESENT: ascites, distended, normal bowel sounds, soft, tenderness. ABSENT: guarding, mass, organolmegaly, rebound Neurological exam: PRESENT: alert, awake, oriented to person, oriented to place, CN II-XII grossly intact. ABSENT: motor sensory deficit Results Laboratory Results: 04/12/20 06:22 04/12/20 06:22 04/12/20 04/12/20 06:22 06:22 WBC 11.1 H RBC 2.79 L Hgb 8.7 L Hct 26.7 L MCV 96 MCH 31.3 MCHC 32.7 RDW 13.8 Plt Count 297 Seg Neutrophils % 75.8 Sodium 136.8 L Potassium 5.8 H Chloride 98 Carbon Dioxide 27 Anion Gap 12 BUN 58 H Creatinine 8.47 H Est GFR ( Amer) 8 L Glucose 120 H Calcium 8.6 Impressions: Abdomen/Pelvis CT 04/07/20 13:35 IMPRESSION: 1. Moraes catheter within the urinary bladder which demonstrates persistent diffuse wall thickening and adjacent fat stranding, similar to prior exam. No definite fistulous connection is identified with the adjacent structures on noncontrast CT. 2. Moderate volume ascites. Diffuse subcutaneous edema. 3. Small right pleural effusion and chronic right pleural thickening. Adjacent opacities may simply reflect atelectasis. Component of infection or aspiration is not excluded. 4. Colon diverticulosis. 5. Stable renal cysts and bilateral indeterminate renal lesions. Transfer Plan - Time Spent with Patient Time spent with patient: Greater than 30 Minutes Qualifiers PATIENT BEING DISCHARGED WITH ANY OF THE FOLLOWING DIAGNOSIS: No
[2020-04-12 15:00] VITALS: BP 100/38
[2020-04-12 15:36] LABS: HEPATITIS C QUANTITATION HCV Not Detected IU/mL (.)
== END 2020-04-12 15:59 | disposition hospice, home (50) | DRG 919 ==
LOC: ER 12:11 → EH 17:41 → 5TH 20:22 → 3S 04-08 18:56
PROVIDERS: ADMIT Hospitalist; ATTEND Internal Medicine
PROC: 0HB7XZZ Excision of Abdomen Skin, External Approach (ICD-10-PCS; principal; 2020-04-08)
PROC: 0JC80ZZ Extirpation of Matter from Abdomen Subcutaneous Tissue and Fascia, Open Approach (ICD-10-PCS; 2020-04-08)
PROC: 5A1D70Z Performance of Urinary Filtration, Intermittent, Less than 6 Hours Per Day (ICD-10-PCS; 2020-04-09)
DX: T85.71XA Infection and inflammatory reaction due to peritoneal dialysis catheter, initial encounter (principal); A41.01 Sepsis due to Methicillin susceptible Staphylococcus aureus; K65.9 Peritonitis, unspecified; J96.20 Acute and chronic respiratory failure, unspecified whether with hypoxia or hypercapnia; N18.6 End stage renal disease; I13.2 Hypertensive heart and chronic kidney disease with heart failure and with stage 5 chronic kidney disease, or end stage renal disease; R18.8 Other ascites; N13.8 Other obstructive and reflux uropathy; I50.32 Chronic diastolic (congestive) heart failure; N39.0 Urinary tract infection, site not specified; J44.1 Chronic obstructive pulmonary disease with (acute) exacerbation; R33.9 Retention of urine, unspecified; I25.10 Atherosclerotic heart disease of native coronary artery without angina pectoris; E78.00 Pure hypercholesterolemia, unspecified; E11.22 Type 2 diabetes mellitus with diabetic chronic kidney disease; E11.65 Type 2 diabetes mellitus with hyperglycemia; K21.9 Gastro-esophageal reflux disease without esophagitis; D63.1 Anemia in chronic kidney disease; N40.1 Benign prostatic hyperplasia with lower urinary tract symptoms; F32.9 Major depressive disorder, single episode, unspecified; Z51.5 Encounter for palliative care; I25.2 Old myocardial infarction; Y73.1 Therapeutic (nonsurgical) and rehabilitative gastroenterology and urology devices associated with adverse incidents; Y92.018 Other place in single-family (private) house as the place of occurrence of the external cause; Z99.2 Dependence on renal dialysis; Z95.5 Presence of coronary angioplasty implant and graft; Z90.49 Acquired absence of other specified parts of digestive tract; Z99.81 Dependence on supplemental oxygen; Z79.82 Long term (current) use of aspirin; Z79.899 Other long term (current) drug therapy
CPT/HCPCS: 36415; 51702; 74176; 80048; 80053; 80069; 81001; 82330; 82962; 83605; 83735; 84100; 85025; 86317; 86704; 87040; 87070; 87075; 87077; 87086; 87150; 87186; 87205; 87340; 87522; 88304; 96365; 96375; 99285; J0690; J0692; J1170; J1644; J1815; J2270; J3370; J3490; J7030; J7060; Q5105